=== PATIENT | male | born 1945 | race Caucasian/White ===

== ENCOUNTER 2018-02-04 23:39 | Emergency (ER) | payer MEDICARE ==
[2018-02-05] MEDS ORDERED: SODIUM CHLORIDE 0.9% 1,000 ML IV STA (00:30)
[2018-02-05] MEDS ORDERED: HYDROcodone/APAP 5-325MG 1 EACH TAB PO STA (00:30)
[2018-02-05] MEDS ORDERED: RX INFO: IV CONTRAST WAS GIVEN 1 EACH MISC MISCELLANE PRN (00:30)
--- NOTE | 2018-02-05 00:33 | ED ---
General Adult HPI - General Chief complaint: Urogenital Stated complaint: Pelvic Pain Time Seen by Provider: 02/05/18 00:26 Source: patient, RN notes reviewed Mode of arrival: ambulatory Limitations: no limitations - History of Present Illness Initial comments: 72-year-old male presents emergency Department chief complaint of left lower quadrant abdominal pain. He states has been on for last couple days worsen today. Patient denies any diarrhea, constipation, melena, hematochezia, dysuria hematuria. Patient states she's had no nausea vomiting he states the pain is worse with movement. He states he was scheduled for a colonoscopy with states that his insurance would not approve it continuously never had it. He's had no prior abdominal infections. states he does not have a current primary care physician secondary to switch of insurance. He states he's been pain medication and states he does not have a current pain meds. Patient reports no back pain no flank pain denies any fevers or chills. - Related Data Home Medications Medication Instructions Recorded Confirmed Albuterol Nebulizer(Dose Unknown) 1 applicate INHALATION DAILY 04/27/14 11/05/14 Aspirin 81 mg PO DAILY 04/27/14 11/02/14 Atenolol [Tenormin] 25 mg PO DAILY 04/27/14 11/05/14 Benazepril HCl 40 mg PO DAILY 04/27/14 11/02/14 Doxazosin [Cardura] 4 mg PO DAILY 04/27/14 11/05/14 Hydrocodone/Acetaminophen 1 each PO BID 04/27/14 11/05/14 [Hydrocodone/Acetaminophen 10-325] Simvastatin [Zocor] 80 mg PO HS 04/27/14 11/05/14 Tamsulosin [Flomax] 0.4 mg PO DAILY 04/27/14 11/02/14 amLODIPine BESYLATE [Norvasc] 10 mg PO DAILY 04/27/14 11/05/14 buPROPion XL [Wellbutrin XL] 300 mg PO DAILY 04/27/14 11/05/14 clonazePAM [KlonoPIN] 1 mg PO BID 04/27/14 11/05/14 glyBURIDE [Diabeta] 5 mg PO BID 04/27/14 11/05/14 metFORMIN HCL 1,000 mg PO BID 04/27/14 11/02/14 Previous Rx's Medication Instructions Recorded Ciprofloxacin HCl [Cipro] 500 mg PO Q12HR #20 tablet 02/05/18 Hydrocodone/Acetaminophen [[place] 1 tab PO Q6HR PRN #20 tab 02/05/18 5-325] metroNIDAZOLE [Flagyl] 500 mg PO TID #30 tab 02/05/18 Allergies Allergy/AdvReac Type Severity Reaction Status Date / Time codeine Allergy Rash/Hives Verified 02/05/18 00:08 Review of Systems ROS Statement: Those systems with pertinent positive or pertinent negative responses have been documented in the HPI. ROS Other: All systems not noted in ROS Statement are negative. Past Medical History Past Medical History: Diabetes Mellitus, Hyperlipidemia, Hypertension Additional Past Medical History / Comment(s): enlarged prostate. History of Any Multi-Drug Resistant Organisms: None Reported Past Surgical History: Back Surgery Additional Past Surgical History / Comment(s): left first and second finger amputation. Past Psychological History: Anxiety Smoking Status: Current every day smoker Past Alcohol Use History: None Reported Past Drug Use History: None Reported General Exam Limitations: no limitations General appearance: alert, in no apparent distress Head exam: Present: atraumatic, normocephalic, normal inspection Neck exam: Present: normal inspection. Absent: tenderness, meningismus, lymphadenopathy Respiratory exam: Present: normal lung sounds bilaterally. Absent: respiratory distress, wheezes, rales, rhonchi, stridor Cardiovascular Exam: Present: regular rate, normal rhythm, normal heart sounds. Absent: systolic murmur, diastolic murmur, rubs, gallop, clicks GI/Abdominal exam: Present: soft, normal bowel sounds. Absent: distended, tenderness (moderate LLQ), guarding, rebound, rigid Back exam: Absent: CVA tenderness (R), CVA tenderness (L) Neurological exam: Present: alert Skin exam: Present: warm, dry, intact, normal color. Absent: rash Course Vital Signs 02/05/18 00:01 Temperature 98.1 F Pulse Rate 76 Respiratory 16 Rate Blood Pressure 185/83 O2 Sat by Pulse 97 Oximetry Medical Decision Making - Medical Decision Making 72-year-old male presents from for abdominal discomfort. Patient has a left lower quadrant abdominal pain last couple days patient has evidence of acute diverticulitis mild on CT there is no abscess patient's labwork does not reveal leukocytosis he has no fever. Patient is stable for discharge on oral antibiotics and pain medication he'll follow up with on-call primary and surgeon return parameters were discussed - Lab Data Result diagrams: 02/05/18 01:02 02/05/18 01:02 Lab Results 02/05/18 02/05/18 02/05/18 Range/Units 01:02 01:02 01:02 WBC 9.7 (3.8-10.6) k/uL RBC 4.57 (4.30-5.90) m/uL Hgb 12.8 L (13.0-17.5) gm/dL Hct 38.9 L (39.0-53.0) % MCV 85.1 (80.0-100.0) fL MCH 28.0 (25.0-35.0) pg MCHC 32.9 (31.0-37.0) g/dL RDW 14.3 (11.5-15.5) % Plt Count 174 (150-450) k/uL Neutrophils % 72 % Lymphocytes % 19 % Monocytes % 7 % Eosinophils % 1 % Basophils % 0 % Neutrophils # 6.9 (1.3-7.7) k/uL Lymphocytes # 1.8 (1.0-4.8) k/uL Monocytes # 0.6 (0-1.0) k/uL Eosinophils # 0.1 (0-0.7) k/uL Basophils # 0.0 (0-0.2) k/uL Sodium 145 (137-145) mmol/L Potassium 3.5 (3.5-5.1) mmol/L Chloride 105 (98-107) mmol/L Carbon Dioxide 28 (22-30) mmol/L Anion Gap 12 mmol/L BUN 29 H (9-20) mg/dL Creatinine 1.30 H (0.66-1.25) mg/dL Est GFR (CKD-EPI)AfAm 63 (>60 ml/min/1.73 sqM) Est GFR (CKD-EPI)NonAf 54 (>60 ml/min/1.73 sqM) Glucose 142 H (74-99) mg/dL Plasma Lactic Acid [place] 0.9 (0.7-2.0) mmol/L Calcium 9.3 (8.4-10.2) mg/dL Total Bilirubin 0.3 (0.2-1.3) mg/dL AST 15 L (17-59) U/L ALT 23 (21-72) U/L Alkaline Phosphatase 57 (38-126) U/L Total Protein 6.1 L (6.3-8.2) g/dL Albumin 3.7 (3.5-5.0) g/dL Amylase 62 (30-110) U/L Lipase 113 (23-300) U/L Urine Color Urine Appearance (Clear) Urine pH (5.0-8.0) Ur Specific [place] (1.001-1.035) Urine Protein (Negative) Urine Glucose (UA) (Negative) Urine Ketones (Negative) Urine Blood (Negative) Urine Nitrite (Negative) Urine Bilirubin (Negative) Urine Urobilinogen (<2.0) mg/dL Ur Leukocyte Esterase (Negative) Urine RBC (0-5) /hpf Urine WBC (0-5) /hpf Urine Mucus (None) /hpf 02/05/18 Range/Units 01:07 WBC (3.8-10.6) k/uL RBC (4.30-5.90) m/uL Hgb (13.0-17.5) gm/dL Hct (39.0-53.0) % MCV (80.0-100.0) fL MCH (25.0-35.0) pg MCHC (31.0-37.0) g/dL RDW (11.5-15.5) % Plt Count (150-450) k/uL Neutrophils % % Lymphocytes % % Monocytes % % Eosinophils % % Basophils % % Neutrophils # (1.3-7.7) k/uL Lymphocytes # (1.0-4.8) k/uL Monocytes # (0-1.0) k/uL Eosinophils # (0-0.7) k/uL Basophils # (0-0.2) k/uL Sodium (137-145) mmol/L Potassium (3.5-5.1) mmol/L Chloride (98-107) mmol/L Carbon Dioxide (22-30) mmol/L Anion Gap mmol/L BUN (9-20) mg/dL Creatinine (0.66-1.25) mg/dL Est GFR (CKD-EPI)AfAm (>60 ml/min/1.73 sqM) Est GFR (CKD-EPI)NonAf (>60 ml/min/1.73 sqM) Glucose (74-99) mg/dL Plasma Lactic Acid [place] (0.7-2.0) mmol/L Calcium (8.4-10.2) mg/dL Total Bilirubin (0.2-1.3) mg/dL AST (17-59) U/L ALT (21-72) U/L Alkaline Phosphatase (38-126) U/L Total Protein (6.3-8.2) g/dL Albumin (3.5-5.0) g/dL Amylase (30-110) U/L Lipase (23-300) U/L Urine Color Light Yellow Urine Appearance Clear (Clear) Urine pH 6.0 (5.0-8.0) Ur Specific [place] 1.011 (1.001-1.035) Urine Protein 1+ H (Negative) Urine Glucose (UA) Negative (Negative) Urine Ketones Negative (Negative) Urine Blood Trace H (Negative) Urine Nitrite Negative (Negative) Urine Bilirubin Negative (Negative) Urine Urobilinogen <2.0 (<2.0) mg/dL Ur Leukocyte Esterase Negative (Negative) Urine RBC 1 (0-5) /hpf Urine WBC 1 (0-5) /hpf Urine Mucus Rare H (None) /hpf Disposition Clinical Impression: Acute diverticulitis Disposition: HOME SELF-CARE Condition: Stable Instructions: Diverticulitis (ED), Diverticulitis Diet (ED) Additional Instructions: Please return to the Emergency Department if symptoms worsen or any other concerns. Prescriptions: Ciprofloxacin HCl [Cipro] 500 mg PO Q12HR #20 tablet Hydrocodone/Acetaminophen [[place] 5-325] 1 tab PO Q6HR PRN #20 tab PRN Reason: Pain metroNIDAZOLE [Flagyl] 500 mg PO TID #30 tab Referrals: Ann Louis MD [STAFF PHYSICIAN] - 1-2 days Rosana Jolley MD [STAFF PHYSICIAN] - 1-2 days Time of Disposition: 02:43
[2018-02-05 01:16] LABS: Basophils % (A) 0 %; Eosinophils # (A) 0.1 k/uL (0-0.7); Eosinophils % (A) 1 %; HCT 38.9 % (39.0-53.0); HGB 12.8 gm/dL (13.0-17.5); Lymphocytes # (A) 1.8 k/uL (1.0-4.8); Lymphocytes % (A) 19 %; MCHC 32.9 g/dL (31.0-37.0); MCV 85.1 fL (80.0-100.0); Mean Platelet Volume 8.2; Monocytes # (A) 0.6 k/uL (0-1.0); Monocytes % (A) 7 %; Neutrophils # (A) 6.9 k/uL (1.3-7.7); Neutrophils % (A) 72 %; Platelet Count 174 k/uL (150-450); RBC 4.57 m/uL (4.30-5.90); RDW 14.3 % (11.5-15.5); WBC 9.7 k/uL (3.8-10.6)
[2018-02-05 01:28] LABS: Albumin 3.7 g/dL (3.5-5.0); Calcium 9.3 mg/dL (8.4-10.2); Potassium 3.5 mmol/L (3.5-5.1); Total Bilirubin 0.3 mg/dL (0.2-1.3); Total Protein 6.1 g/dL (6.3-8.2)
[2018-02-05 01:35] LABS: Appearance,Urine Clear (Clear); Bilirubin,Urine Negative (Negative); Blood,Urine Trace (Negative); Color,Urine Light Yellow; Glucose,Urine (UA) Negative (Negative); Ketones,Urine Negative (Negative); Leukocyte Esterase,Urine Negative (Negative); Mucus,Urine Rare /hpf; Nitrite,Urine Negative (Negative); Protein,Urine 1+ (Negative); RBC,Urine 1 /hpf (0-5); Specific Gravity,Urine 1.011 (1.001-1.035); Urobilinogen,Urine <2.0 mg/dL (<2.0); WBC,Urine 1 /hpf (0-5)
--- NOTE | 2018-02-05 02:25 | CT ---
EXAMINATION TYPE: CT abdomen pelvis w con DATE OF EXAM: 02/05/2018 COMPARISON: 04/15/2014 HISTORY: LLQ abd pain, Lower abd pain CT DLP: 722.90 mGycm Automated exposure control for dose reduction was used. TECHNIQUE: Helical acquisition of images was performed from the lung bases through the pelvis. CONTRAST: Performed without Oral Contrast and with IV Contrast, patient injected with 80 mL of Isovue 300. FINDINGS: Heart appears enlarged. Lung bases are clear. There is no pleural effusion. There is no pericardial e ffusion. Liver spleen pancreas appear normal. Bile ducts are not dilated. Gallbladder appears normal. There is mild hypertrophy of the adrenal glands. The kidneys show satisfactory contrast opacification . There is no hydronephrosis. There is a 3.5 cm cortical cyst on the posterior left kidney. There is no retroperitoneal adenopathy. Abdominal aorta is atheromatous. Bladder distends smoothly. There is m ild prostate enlargement with calcification. There is no ascites. There is no sign of free air. There is a 2 cm cortical cyst on the lateral right kidney. There is a 1.5 cm cortical cyst on the posterio r right kidney. Appendix appears normal. There are multiple diverticula in the sigmoid colon. There i s minimal fat stranding around the proximal sigmoid colon. There is multilevel posterior fusion surge ry in the lumbar spine. I see no bony destructive process. IMPRESSION: MILD INFLAMMATORY CHANGES AROUND THE PROXIMAL SIGMOID COLON CONSISTENT WITH FOCAL MILD DIVERTICULITIS THAT IS NEW COMPARED TO OLD EXAM. NO ABSCESS. NORMAL APPENDIX. SMALL RENAL CORTICAL CYSTS.
[2018-02-05] MEDS ORDERED: metroNIDAZOLE 500 MG TAB PO STA (02:41)
[2018-02-05] MEDS ORDERED: CIPROFLOXACIN HCL 500 MG TAB PO STA (02:41)
[2018-02-05 02:55] VITALS: BP 136/83; PULSE 89; RESP 18; TEMP 98.9
== END 2018-02-05 02:55 | disposition home or self-care (01) ==
LOC: EC 23:39
DX: K57.92 Diverticulitis of intestine, part unspecified, without perforation or abscess without bleeding (principal); R10.2 Pelvic and perineal pain; E11.9 Type 2 diabetes mellitus without complications; N40.0 Benign prostatic hyperplasia without lower urinary tract symptoms; E78.5 Hyperlipidemia, unspecified; I10 Essential (primary) hypertension; F17.200 Nicotine dependence, unspecified, uncomplicated; Z88.5 Allergy status to narcotic agent; Z79.82 Long term (current) use of aspirin; Z79.84 Long term (current) use of oral hypoglycemic drugs; Z79.891 Long term (current) use of opiate analgesic; Z79.899 Other long term (current) drug therapy
CPT/HCPCS: 36415; 80053; 82150; 83605; 83690; 85025; 81001; 74177; 99284; 96360; 96361; Q9967

== ENCOUNTER 2018-10-18 12:36 | Emergency (ER) | payer MEDICARE ==
[2018-10-18 12:48] VITALS: RESP 18; TEMP 97.5
[2018-10-18] MEDS ORDERED: KETOROLAC 60 MG/2 ML VIAL IM STA (13:28)
--- NOTE | 2018-10-18 13:31 | ED ---
General Adult HPI - General Chief complaint: Extremity Injury, Lower Stated complaint: rt hip, spine, and lower back pain Source: patient, RN notes reviewed Mode of arrival: wheelchair Limitations: no limitations - History of Present Illness Initial comments: Patient is a 73-year-old male with chronic back pain who presents the emergency department with complaints of right hip pain that began about 2-1/2 months ago after he slipped and fell at home. He denies hitting his head or any loss of consciousness. He reports that he typically takes [place] for his chronic back pain but that he is out. He also reports that he is out of Wellbutrin XL for depression treatment. Patient denies any recent lacerations, abrasions, bowel or bladder incontinence, saddle anesthesia, fever, chills, shortness of breath, chest pain, abdominal pain, nausea or vomiting, numbness or tingling, headaches or visual changes, or any other complaints. - Related Data Home Medications Medication Instructions Recorded Confirmed Atenolol [Tenormin] 25 mg PO DAILY 04/27/14 10/18/18 Benazepril HCl 40 mg PO DAILY 04/27/14 10/18/18 Hydrocodone/Acetaminophen 1 tab PO TID 04/27/14 10/18/18 [Hydrocodone/Acetaminophen 10-325] Tamsulosin [Flomax] 0.4 mg PO DAILY 04/27/14 10/18/18 amLODIPine BESYLATE [Norvasc] 10 mg PO DAILY 04/27/14 10/18/18 buPROPion XL [Wellbutrin XL] 300 mg PO DAILY 04/27/14 10/18/18 clonazePAM [KlonoPIN] 1 mg PO TID 04/27/14 10/18/18 metFORMIN HCL 1,000 mg PO BID 04/27/14 10/18/18 Atorvastatin [Lipitor] 40 mg PO HS 10/18/18 10/18/18 Nitroglycerin Sl Tabs [Nitrostat] 0.4 mg SUBLINGUAL Q5M PRN 10/18/18 10/18/18 Previous Rx's Medication Instructions Recorded Ibuprofen [Motrin] 600 mg PO Q6HR PRN #28 10/18/18 buPROPion XL [Wellbutrin Xl] 300 mg PO DAILY #7 tab.er.24h 10/18/18 Allergies Allergy/AdvReac Type Severity Reaction Status Date / Time codeine Allergy Rash/Hives Verified 10/18/18 13:21 Review of Systems ROS Statement: Those systems with pertinent positive or pertinent negative responses have been documented in the HPI. ROS Other: All systems not noted in ROS Statement are negative. Past Medical History Past Medical History: Diabetes Mellitus, Hyperlipidemia, Hypertension Additional Past Medical History / Comment(s): enlarged prostate. History of Any Multi-Drug Resistant Organisms: None Reported Past Surgical History: Back Surgery Additional Past Surgical History / Comment(s): left first and second finger amputation. Past Psychological History: Anxiety Smoking Status: Current every day smoker Past Alcohol Use History: None Reported Past Drug Use History: None Reported General Exam Limitations: no limitations General appearance: alert, in no apparent distress Head exam: Present: atraumatic, normocephalic Eye exam: Present: normal appearance Neck exam: Present: normal inspection, full ROM Respiratory exam: Present: normal lung sounds bilaterally Cardiovascular Exam: Present: regular rate, normal rhythm Extremities exam: Present: normal capillary refill, other (DP and PT pulses palpable and strong bilaterally.) Neurological exam: Present: alert, oriented X3 Skin exam: Present: warm, dry Course Vital Signs 10/18/18 10/18/18 10/18/18 12:46 13:26 15:17 Temperature 97.5 F L Pulse Rate 80 65 89 Respiratory 18 18 18 Rate Blood Pressure 198/91 181/84 159/71 O2 Sat by Pulse 97 98 96 Oximetry Medical Decision Making - Medical Decision Making Ordered toradol for pain. X-ray of bilateral hips and pelvis is negative. Lumbar x-ray reveals degenerative changes, but is negative for fracture or dislocation. Will prescribe Ibuprofen and a 7 day supply of Wellbutrin XL. Case discussed in detail with attending physician Dr. Moscoso. Disposition Clinical Impression: Chronic back pain Disposition: HOME SELF-CARE Condition: Good Instructions: Chronic Back Pain (ED) Additional Instructions: Follow-up with your PCP in 1 to 2 days. Return to the emergency department if your symptoms worsen or any other concerns. Prescriptions: buPROPion XL [Wellbutrin Xl] 300 mg PO DAILY #7 tab.er.24h Ibuprofen [Motrin] 600 mg PO Q6HR PRN #28 PRN Reason: Pain Is patient prescribed a controlled substance at d/c from ED?: No Referrals: None,Stated [Primary Care Provider] - 1-2 days Evan Avendano MD [STAFF PHYSICIAN] - 1-2 days Time of Disposition: 15:21
--- NOTE | 2018-10-18 14:00 | XR ---
EXAMINATION TYPE: XR lumbar spine 2 or 3V DATE OF EXAM: 10/18/2018 CLINICAL HISTORY: pain TECHNIQUE: Three views of the lumbar spine are submitted. COMPARISON: None. FINDINGS: Postoperative changes of lumbar laminectomy and fusion at L4-5 and L5-S1. Intervertebral body spacer at L4-5. There is severe degenerative disc space narrowing and spondylosis identified at the remainin g. Endplate sclerosis is identified. There is evidence of facet joint arthropathy. No evidence for co mpression fracture or malalignment. IMPRESSION: Postoperative and degenerative change as discussed. ICD 10 NO FRACTURE, INITIAL EVALUATION
--- NOTE | 2018-10-18 14:05 | XR ---
EXAMINATION TYPE: XR Hip Bilateral and AP pelvis DATE OF EXAM: 10/18/2018 CLINICAL HISTORY: pain TECHNIQUE: Single view the pelvis is submitted. 2 views of the bilateral hips are also submitted. FINDINGS: No evidence for fracture, dislocation or bony lesion. Joint spaces are mildly narrowed. SI joints appear symmetric. IMPRESSION: 1. No acute fracture or dislocation seen. ICD 10 NO FRACTURE, INITIAL EVALUATION
[2018-10-18 15:18] VITALS: BP 159/71; PULSE 89
== END 2018-10-18 15:25 | disposition home or self-care (01) ==
LOC: EC 12:36
DX: M54.5 Low back pain (principal); G89.29 Other chronic pain; E11.9 Type 2 diabetes mellitus without complications; E78.5 Hyperlipidemia, unspecified; I10 Essential (primary) hypertension; F41.9 Anxiety disorder, unspecified; N40.0 Benign prostatic hyperplasia without lower urinary tract symptoms; F17.200 Nicotine dependence, unspecified, uncomplicated; Z79.84 Long term (current) use of oral hypoglycemic drugs; Z79.899 Other long term (current) drug therapy; Z88.5 Allergy status to narcotic agent
CPT/HCPCS: 72100; 73521; 99283; 96372; J1885

== ENCOUNTER 2018-10-23 03:37 | Emergency (ER) | payer MEDICARE ==
[2018-10-23 03:45] VITALS: TEMP 99.3
[2018-10-23] MEDS ORDERED: MORPHINE SULFATE 4 MG/ML SYRINGE IVP STA (03:50)
[2018-10-23] MEDS ORDERED: ONDANSETRON 4 MG/2 ML VIAL IVP STA (03:50)
[2018-10-23] MEDS: SODIUM CHLORIDE 0.9% 500 ML 500 ML IV SCH ×3 (04:10→05:22)
[2018-10-23 04:32] LABS: Albumin 3.8 g/dL (3.5-5.0); Calcium 8.7 mg/dL (8.4-10.2); Potassium 3.3 mmol/L (3.5-5.1); Total Bilirubin 0.5 mg/dL (0.2-1.3); Total Protein 6.5 g/dL (6.3-8.2)
[2018-10-23] MEDS ORDERED: Potassium Replacement Protocol 1 EACH MISC MISCELLANE PRN (04:33)
[2018-10-23 04:34] LABS: Basophils # (A) 0.1 k/uL (0-0.2); Basophils % (A) 1 %; Eosinophils # (A) 0.1 k/uL (0-0.7); Eosinophils % (A) 1 %; HCT 40.6 % (39.0-53.0); Lymphocytes # (A) 0.6 k/uL (1.0-4.8); Lymphocytes % (A) 7 %; MCH 27.8 pg (25.0-35.0); MCV 86.8 fL (80.0-100.0); Mean Platelet Volume 7.4; Monocytes # (A) 0.3 k/uL (0-1.0); Monocytes % (A) 4 %; Neutrophils % (A) 86 %; Platelet Count 148 k/uL (150-450); RBC 4.68 m/uL (4.30-5.90); RDW 14.2 % (11.5-15.5); WBC 8.2 k/uL (3.8-10.6)
--- NOTE | 2018-10-23 04:34 | ED ---
General Adult HPI - General Chief complaint: Abdominal Pain Stated complaint: side pain Time Seen by Provider: 10/23/18 03:39 Source: patient, EMS Mode of arrival: EMS Limitations: physical limitation - History of Present Illness Initial comments: Patient is a 73-year-old male who presents the emergency department via EMS for evaluation of right-sided flank pain. Patient reports that he was seen and evaluated for a similar complaint for 5 days ago, treated with medications, was told his x-rays were unremarkable and he was discharged home. Patient reports he was doing well after discharge however throughout the had persistent pain in his right flank. Patient denies any hematuria or urinary frequency or hesitancy. He denies any fevers, chills, nausea, vomiting or change in bowel or bladder habits. He reports chronic shortness of breath which is unchanged recently. He denies any chest pain or palpitations. - Related Data Home Medications Medication Instructions Recorded Confirmed Atenolol [Tenormin] 25 mg PO DAILY 04/27/14 10/23/18 Benazepril HCl 40 mg PO DAILY 04/27/14 10/23/18 Hydrocodone/Acetaminophen 1 tab PO TID 04/27/14 10/23/18 [Hydrocodone/Acetaminophen 10-325] Tamsulosin [Flomax] 0.8 mg PO DAILY 04/27/14 10/23/18 amLODIPine BESYLATE [Norvasc] 10 mg PO DAILY 04/27/14 10/23/18 clonazePAM [KlonoPIN] 1 mg PO TID 04/27/14 10/23/18 metFORMIN HCL 1,000 mg PO BID 04/27/14 10/23/18 Atorvastatin [Lipitor] 40 mg PO HS 10/18/18 10/23/18 Nitroglycerin Sl Tabs [Nitrostat] 0.4 mg SUBLINGUAL Q5M PRN 10/18/18 10/23/18 Glimepiride [Amaryl] 2 mg PO AC-[id number] PRN 10/23/18 10/23/18 Previous Rx's Medication Instructions Recorded buPROPion XL [Wellbutrin Xl] 300 mg PO DAILY #7 tab.er.24h 10/18/18 Allergies Allergy/AdvReac Type Severity Reaction Status Date / Time codeine Allergy Rash/Hives Verified 10/23/18 07:21 Review of Systems ROS Statement: Those systems with pertinent positive or pertinent negative responses have been documented in the HPI. ROS Other: All systems not noted in ROS Statement are negative. Past Medical History Past Medical History: Diabetes Mellitus, Hyperlipidemia, Hypertension Additional Past Medical History / Comment(s): enlarged prostate. History of Any Multi-Drug Resistant Organisms: None Reported Past Surgical History: Back Surgery Additional Past Surgical History / Comment(s): left first and second finger amputation. Past Psychological History: Anxiety Smoking Status: Current every day smoker Past Alcohol Use History: None Reported Past Drug Use History: None Reported General Exam - General Exam Comments Initial Comments: Physical Exam GENERAL: Patient is well-developed and well-nourished. Patient is nontoxic and well- hydrated and is in no distress. HENT: Normocephalic, Atraumatic. EYES: PERRL, EOMI PULMONARY: Mild expiratory wheezing CARDIOVASCULAR: After cardiac, regular extremities are warm and well perfused ABDOMEN: Soft, mild tenderness to palpation on the right SKIN: Skin is clear with no lesions or rashes and otherwise unremarkable. : Deferred NEUROLOGIC: Patient is alert and oriented x3. Moving all extremities spontaneously MUSCULOSKELETAL: Normal extremities with adequate strength and full range of motion. No lower extremity swelling or edema. No calf tenderness. 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 Limitations: no limitations Limitations: physical limitation Course Vital Signs 10/23/18 10/23/18 10/23/18 03:38 04:00 04:30 Temperature 99.3 F Pulse Rate 108 H 106 H 102 H Respiratory 20 21 22 Rate Blood Pressure 192/101 192/101 182/100 O2 Sat by Pulse 94 L 98 97 Oximetry EKG Findings - EKG Comments: EKG Findings:: EKG obtained at 3:44 AM, rate is 110, rhythm is sinus tachycardia with frequent PVCs. There is normal axis, normal intervals, VT 156 , QRS 98, QTC is 454 there is no acute ST elevations or depressions no evidence of acute ischemia or infarction. The EKG obtained at 6:13 AM, rate is 124 rhythm is sinus tachycardia with PACs, there is normal axis, normal intervals, VT 146, QRS 88, QTC 476. No acute ST elevations or depressions. Medical Decision Making - Medical Decision Making Patient was seen and evaluated, history was obtained from the patient and review of medical record Patient presenting with right-sided flank pain, had negative x-rays a few days ago today I will obtain a CT as the patient does have a history of colitis with similar symptoms Labs reveal mild hypokalemia, IV replacement of potassium was ordered Patient suddenly yelling out that he is having chest pain and unable to breathe , noted to be tachycardic with heart rate in the 140s, tachypnea, oxygen saturation is noted to be 96% however the patient is diaphoretic The patient does wear a CPAP at home, we will place the patient on BiPAP for support The EKG was reviewed, sinus tachycardia was placed on BiPAP and respiratory distress improved, diaphoresis improved, oxygenation remained greater than 96% Entering patient's persistent tachycardia and chest pain I will obtain a scan to evaluate for possible PE however patient did receive IV contrast within the past 2 hours if her V/Q scan is recommended. Single dose of weight-based Lovenox was given pending VQ scan. Patient care was discussed with Dr. Acevedo who accepts the admission with a consult to cardiology. - Lab Data Result diagrams: 10/23/18 04:05 10/23/18 04:05 Lab Results 10/23/18 10/23/18 10/23/18 Range/Units 04:05 04:05 04:05 WBC 8.2 (3.8-10.6) k/uL RBC 4.68 (4.30-5.90) m/uL Hgb 13.0 (13.0-17.5) gm/dL Hct 40.6 (39.0-53.0) % MCV 86.8 (80.0-100.0) fL MCH 27.8 (25.0-35.0) pg MCHC 32.0 (31.0-37.0) g/dL RDW 14.2 (11.5-15.5) % Plt Count 148 L (150-450) k/uL Neutrophils % 86 % Lymphocytes % 7 % Monocytes % 4 % Eosinophils % 1 % Basophils % 1 % Neutrophils # 7.0 (1.3-7.7) k/uL Lymphocytes # 0.6 L (1.0-4.8) k/uL Monocytes # 0.3 (0-1.0) k/uL Eosinophils # 0.1 (0-0.7) k/uL Basophils # 0.1 (0-0.2) k/uL PT (9.0-12.0) sec INR (<1.2) APTT (22.0-30.0) sec Sodium 139 (137-145) mmol/L Potassium 3.3 L (3.5-5.1) mmol/L Chloride 103 (98-107) mmol/L Carbon Dioxide 27 (22-30) mmol/L Anion Gap 9 mmol/L BUN 22 H (9-20) mg/dL Creatinine 1.17 (0.66-1.25) mg/dL Est GFR (CKD-EPI)AfAm 71 (>60 ml/min/1.73 sqM) Est GFR (CKD-EPI)NonAf 61 (>60 ml/min/1.73 sqM) Glucose 104 H (74-99) mg/dL Plasma Lactic Acid [place] (0.7-2.0) mmol/L Calcium 8.7 (8.4-10.2) mg/dL Total Bilirubin 0.5 (0.2-1.3) mg/dL AST 23 (17-59) U/L ALT 23 (21-72) U/L Alkaline Phosphatase 69 (38-126) U/L Total Creatine Kinase 180 H (55-170) U/L CK-MB (CK-2) 2.1 (0.0-2.4) ng/mL CK-MB (CK-2) Rel Index 1.2 Troponin I 0.028 (0.000-0.034) ng/mL Total Protein 6.5 (6.3-8.2) g/dL Albumin 3.8 (3.5-5.0) g/dL Urine Color Urine Appearance (Clear) Urine pH (5.0-8.0) Ur Specific [place] (1.001-1.035) Urine Protein (Negative) Urine Glucose (UA) (Negative) Urine Ketones (Negative) Urine Blood (Negative) Urine Nitrite (Negative) Urine Bilirubin (Negative) Urine Urobilinogen (<2.0) mg/dL Ur Leukocyte Esterase (Negative) Urine RBC (0-5) /hpf Urine WBC (0-5) /hpf Ur Squamous Epith Cells (0-4) /hpf Urine Mucus (None) /hpf Urine Sperm (None) /hpf 10/23/18 10/23/18 10/23/18 Range/Units 04:05 04:05 04:05 WBC (3.8-10.6) k/uL RBC (4.30-5.90) m/uL Hgb (13.0-17.5) gm/dL Hct (39.0-53.0) % MCV (80.0-100.0) fL MCH (25.0-35.0) pg MCHC (31.0-37.0) g/dL RDW (11.5-15.5) % Plt Count (150-450) k/uL Neutrophils % % Lymphocytes % % Monocytes % % Eosinophils % % Basophils % % Neutrophils # (1.3-7.7) k/uL Lymphocytes # (1.0-4.8) k/uL Monocytes # (0-1.0) k/uL Eosinophils # (0-0.7) k/uL Basophils # (0-0.2) k/uL PT 9.9 (9.0-12.0) sec INR 0.9 (<1.2) APTT 24.2 (22.0-30.0) sec Sodium (137-145) mmol/L Potassium (3.5-5.1) mmol/L Chloride (98-107) mmol/L Carbon Dioxide (22-30) mmol/L Anion Gap mmol/L BUN (9-20) mg/dL Creatinine (0.66-1.25) mg/dL Est GFR (CKD-EPI)AfAm (>60 ml/min/1.73 sqM) Est GFR (CKD-EPI)NonAf (>60 ml/min/1.73 sqM) Glucose (74-99) mg/dL Plasma Lactic Acid [place] 1.0 (0.7-2.0) mmol/L Calcium (8.4-10.2) mg/dL Total Bilirubin (0.2-1.3) mg/dL AST (17-59) U/L ALT (21-72) U/L Alkaline Phosphatase (38-126) U/L Total Creatine Kinase (55-170) U/L CK-MB (CK-2) (0.0-2.4) ng/mL CK-MB (CK-2) Rel Index Troponin I (0.000-0.034) ng/mL Total Protein (6.3-8.2) g/dL Albumin (3.5-5.0) g/dL Urine Color Light Yellow Urine Appearance Clear (Clear) Urine pH 6.5 (5.0-8.0) Ur Specific [place] 1.007 (1.001-1.035) Urine Protein 2+ H (Negative) Urine Glucose (UA) Negative (Negative) Urine Ketones Negative (Negative) Urine Blood Moderate H (Negative) Urine Nitrite Negative (Negative) Urine Bilirubin Negative (Negative) Urine Urobilinogen <2.0 (<2.0) mg/dL Ur Leukocyte Esterase Negative (Negative) Urine RBC 14 H (0-5) /hpf Urine WBC 1 (0-5) /hpf Ur Squamous Epith Cells 1 (0-4) /hpf Urine Mucus Rare H (None) /hpf Urine Sperm Rare (None) /hpf Disposition Clinical Impression: Tachycardia, Chest pain, Respiratory distress, Flank pain Disposition: ADMITTED IP TO THIS HOSP Referrals: None,Stated [Primary Care Provider] - 1-2 days
[2018-10-23 04:38] LABS: INR 0.9 (<1.2); Partial Thromboplastin Time 24.2 sec (22.0-30.0); Prothrombin Time 9.9 sec (9.0-12.0)
[2018-10-23] MEDS: POTASSIUM CHLORIDE ER 20 MEQ TAB.ER PO SCH ×2 (04:48→09:08)
[2018-10-23 04:52] LABS: Creatine Kinase MB 2.1 ng/mL (0.0-2.4); Troponin I 0.028 ng/mL (0.000-0.034)
[2018-10-23 05:00] LABS: Appearance,Urine Clear (Clear); Bilirubin,Urine Negative (Negative); Blood,Urine Moderate (Negative); Color,Urine Light Yellow; Glucose,Urine (UA) Negative (Negative); Ketones,Urine Negative (Negative); Leukocyte Esterase,Urine Negative (Negative); Mucus,Urine Rare /hpf; Nitrite,Urine Negative (Negative); PH, Urine 6.5 (5.0-8.0); Protein,Urine 2+ (Negative); RBC,Urine 14 /hpf (0-5); Specific Gravity,Urine 1.007 (1.001-1.035); Sperm,Urine Rare /hpf; Squamous Epithelial Cell,Urine 1 /hpf (0-4); Urobilinogen,Urine <2.0 mg/dL (<2.0); WBC,Urine 1 /hpf (0-5)
[2018-10-23] MEDS: POTASSIUM CHLORIDE 10 MEQ in WATER FOR INJECTION 1 100ML.BAG IVPB SCH ×3 (05:33→08:43)
--- NOTE | 2018-10-23 05:38 | CT ---
EXAMINATION TYPE: CT abdomen pelvis w con DATE OF EXAM: 10/23/2018 COMPARISON: 02/05/2018 HISTORY: Right abd/flank pain, hx of colitis CT DLP: 1081.1 mGycm Automated exposure control for dose reduction was used. TECHNIQUE: Helical acquisition of images was performed from the lung bases through the pelvis. CONTRAST: Performed without Oral Contrast and with IV Contrast, patient injected with 100 mL of Isovue 300. FINDINGS: Lung bases are clear. There is no pleural effusion. Heart size is top normal. There is very small per icardial effusion. There is 1 cm cyst in the right lobe of the liver. Bile ducts are not dilated. Gallbladder slightly c ontracted. Spleen appears normal. There is no pancreatic mass. There is no adrenal mass. There is some nodularity in both adrenal glands. There is 2.5 cm cyst poste rior left kidney. There are other smaller renal cortical cysts. There is 4 mm calculus posterior righ t kidney. There is no hydronephrosis. Ureters are not dilated. Abdominal aorta is atheromatous. There is no retroperitoneal adenopathy. There is lower lumbar spine fusion surgery at L4 and L5 and S1. Pr ostate is slightly enlarged. Prostate measures 5 cm. There is no inguinal hernia. There are multiple sigmoid diverticula. There is no sign of diverticulitis. Appendix appears normal. There are some dist ended gas and fluid-filled loops of small bowel in the left upper quadrant. There is no sign of free air. There is no ascites. IMPRESSION: SIGMOID DIVERTICULOSIS WITHOUT DIVERTICULITIS. THERE ARE A FEW DISTENDED SMALL BOWEL LOOPS IN THE UPP ER ABDOMEN THAT MEASURE UP TO 2.9 CM. THIS COULD RELATE TO GASTROENTERITIS. NORMAL APPENDIX. SMALL GUILLERMO WEL DISTENTION IS NEW COMPARED TO OLD EXAM.
--- NOTE | 2018-10-23 06:17 | XR ---
EXAMINATION TYPE: XR chest 1V DATE OF EXAM: 10/23/2018 COMPARISON: NONE HISTORY: Respiratory distress TECHNIQUE: Single frontal view of the chest is obtained. FINDINGS: There is coarsening of the lung markings. There are calcified small granulomata scattered in the lungs. There are chest leads. Costophrenic angles are clear. The thoracic aorta is atheromatou s. IMPRESSION: Mild pulmonary fibrosis. Old granulomatous disease. Normal heart.
[2018-10-23] MEDS ORDERED: ENOXAPARIN 80 MG/0.8 ML SYRINGE SQ STA (07:07)
[2018-10-23] MEDS ORDERED: NALOXONE 0.4 MG/ML 1 ML VIAL IV PRN (07:08)
--- NOTE | 2018-10-23 08:52 | NM ---
EXAMINATION TYPE: NM pul vent and perfuse DATE OF EXAM: 10/23/2018 COMPARISON: NONE HISTORY: Shortness of breath TECHNIQUE: Utilizing inhalation of 33.5 mCi Tc 99m DTPA aerosol and intravenous injection of 5.45 mC i of Tc 99m MAA, ventilation and perfusion images are acquired post injection in multiple projections . FINDINGS: There is moderate central accumulation of radiotracer compatible with COPD. There is no evidence for perfusion ventilation mismatch IMPRESSION: Low probability for pulmonary embolism.
[2018-10-23 10:14] VITALS: BP 141/109
[2018-10-23 11:34] VITALS: PULSE 106; RESP 18
== END 2018-10-23 11:43 | disposition left against medical advice (07) ==
LOC: EC 03:37 → UNDOADMIN 07:08 → 3SCARD 07:08 → EC 11:43 → UNDODISIN 11:43
DX: R10.9 Unspecified abdominal pain (principal); R06.03 Acute respiratory distress; R00.0 Tachycardia, unspecified; E87.6 Hypokalemia; E11.9 Type 2 diabetes mellitus without complications; E78.5 Hyperlipidemia, unspecified; I10 Essential (primary) hypertension; F41.9 Anxiety disorder, unspecified; F17.200 Nicotine dependence, unspecified, uncomplicated; Z79.899 Other long term (current) drug therapy; Z79.84 Long term (current) use of oral hypoglycemic drugs; Z88.5 Allergy status to narcotic agent; Z87.19 Personal history of other diseases of the digestive system
CPT/HCPCS: 96365; 96372; 96375; 99285; 36415; 94660; 93005; 80053; 82550; 82553; 83605; 84484; 85025; 85610; 85730; 81001; 87040; 71045; 74177; 78582; A9540; A9567; J2270; J2405; J1650; J3480; Q9967

== ENCOUNTER → 2019-04-14 | Outpatient (CLI) | payer MEDICARE ==
--- NOTE | 2019-04-14 22:27 | US ---
EXAMINATION TYPE: US venous doppler duplex LE RT DATE OF EXAM: 04/14/2019 4:54 PM COMPARISON: NONE CLINICAL HISTORY: M79.661 Pain in Right Lower Limb. SIDE PERFORMED: Right TECHNIQUE: The lower extremity deep venous system is examined utilizing real time linear array sonog matt with graded compression, doppler sonography and color-flow sonography. VESSELS IMAGED: External Iliac Vein (EIV) Common Femoral Vein Deep Femoral Vein Greater Saphenous Vein * Femoral Vein Popliteal Vein Small Saphenous Vein * Proximal Calf Veins (* superficial vessels) Right Leg: Negative for DVT Grayscale, color doppler, spectral doppler imaging performed of the deep veins of the right lower ext remity. There is normal flow, compressibility, vascular waveforms. IMPRESSION: No ultrasound evidence for acute DVT in the right lower extremity.
== END | disposition home or self-care (01) ==
LOC: RADUSWWP 16:33
PROVIDERS: ATTEND Family Medicine
DX: M79.661 Pain in right lower leg (principal)

== ENCOUNTER 2019-06-03 22:41 | Emergency (ER) | payer MEDICARE ==
--- NOTE | 2019-06-03 23:20 | ED ---
General Adult HPI - General Chief complaint: Extremity Problem,Nontraumatic Stated complaint: Bilateral Leg Swelling Time Seen by Provider: 06/03/19 22:57 Source: patient, RN notes reviewed Mode of arrival: ambulatory Limitations: no limitations - History of Present Illness Initial comments: 73-year-old male presents to the emergency department for a chief complaint of bilateral lower extremity pain and swelling for 5 weeks. Patient states that he also has some redness to his bilateral lower legs. States that he has been seen by his primary care provider for this twice and has been given steroids as well as 6 due to concern for heart failure. States he has had an ultrasound of the right leg which was negative for DVT. She does admit to shortness of breath but states he is always short of breath. States his shortness of breath has not worsened for the past year. Denies any chest pain whatsoever. Patient has no other complaints at this time including chest pain, abdominal pain, nausea or vomiting, headache, or visual changes. - Related Data Home Medications Medication Instructions Recorded Confirmed Atenolol [Tenormin] 25 mg PO DAILY 04/27/14 06/03/19 Benazepril HCl 40 mg PO DAILY 04/27/14 06/03/19 Tamsulosin [Flomax] 0.8 mg PO DAILY 04/27/14 06/03/19 amLODIPine BESYLATE [Norvasc] 10 mg PO DAILY 04/27/14 06/03/19 clonazePAM [KlonoPIN] 1 mg PO TID 04/27/14 06/03/19 metFORMIN HCL 1,000 mg PO BID 04/27/14 06/03/19 Atorvastatin [Lipitor] 40 mg PO HS 10/18/18 06/03/19 Glimepiride [Amaryl] 2 mg PO BID 10/23/18 06/03/19 Albuterol Nebulized [Ventolin 2.5 mg INHALATION RT-QID 06/03/19 06/03/19 Nebulized] Albuterol Sulfate [Proair Hfa] 1 - 2 puff INHALATION Q6HR PRN 06/03/19 06/03/19 Aspirin EC [Ecotrin Low Dose] 81 mg PO DAILY 06/03/19 06/03/19 Cyclobenzaprine [Flexeril] 10 mg PO DAILY 06/03/19 06/03/19 Escitalopram Oxalate [Lexapro] 10 mg PO DAILY 06/03/19 06/03/19 Furosemide [Lasix] 40 mg PO HS 06/03/19 06/03/19 Previous Rx's Medication Instructions Recorded buPROPion XL [Wellbutrin Xl] 300 mg PO DAILY #7 tab.er.24h 10/18/18 Cephalexin [Keflex] 500 mg PO Q6HR 10 Days cap 06/04/19 Potassium Chloride [K-Tab ER] 40 meq PO DAILY 2 Days tablet.er 06/04/19 Allergies Allergy/AdvReac Type Severity Reaction Status Date / Time codeine Allergy Rash/Hives Verified 06/03/19 23:24 Review of Systems ROS Statement: Those systems with pertinent positive or pertinent negative responses have been documented in the HPI. ROS Other: All systems not noted in ROS Statement are negative. Past Medical History Past Medical History: Diabetes Mellitus, Hyperlipidemia, Hypertension Additional Past Medical History / Comment(s): enlarged prostate. History of Any Multi-Drug Resistant Organisms: None Reported Past Surgical History: Back Surgery Additional Past Surgical History / Comment(s): left first and second finger amputation. Past Psychological History: Anxiety Smoking Status: Current every day smoker Past Alcohol Use History: None Reported Past Drug Use History: None Reported General Exam Limitations: no limitations General appearance: alert, in no apparent distress Head exam: Present: atraumatic, normocephalic, normal inspection Eye exam: Present: normal appearance, PERRL, EOMI. Absent: scleral icterus, conjunctival injection, periorbital swelling ENT exam: Present: normal exam, mucous membranes moist Neck exam: Present: normal inspection, full ROM. Absent: tenderness, meningismus, lymphadenopathy Respiratory exam: Present: normal lung sounds bilaterally. Absent: respiratory distress, wheezes, rales, rhonchi, stridor Cardiovascular Exam: Present: regular rate, normal rhythm, normal heart sounds. Absent: systolic murmur, diastolic murmur, rubs, gallop, clicks Extremities exam: Present: other (Patient has 2+ pitting edema noted in the bilateral lower extremities. DP pulses are 2+ and equal bilaterally. plaque- like erythema present on the left and right lower legs. This does have increased warmth palpated as well as some tenderness generally over the feet and distal lower extremities. Negative Homans sign.) Course Vital Signs 06/03/19 06/04/19 06/04/19 22:44 00:00 00:30 Temperature 98.2 F Pulse Rate 87 72 75 Respiratory 18 19 19 Rate Blood Pressure 166/82 182/89 167/87 O2 Sat by Pulse 96 95 96 Oximetry 06/04/19 06/04/19 06/04/19 00:37 00:50 01:19 Temperature Pulse Rate 73 79 77 Respiratory 20 18 18 Rate Blood Pressure 179/87 179/87 190/96 O2 Sat by Pulse 94 L 96 94 L Oximetry 06/04/19 06/04/19 01:54 02:54 Temperature 98.2 F 98.3 F Pulse Rate 75 86 Respiratory 19 18 Rate Blood Pressure 170/82 176/80 O2 Sat by Pulse 95 95 Oximetry EKG Findings - EKG Comments: EKG Findings:: Normal sinus rhythm, ventricular rate 79, OK interval 156, QTc 470 Medical Decision Making - Medical Decision Making 73-year-old male with a past medical history of diabetes mellitus, hyperlipidemia, hypertension presents to the emergency department for a chief: Bilateral lower extremity edema. States this has been ongoing for 5 weeks. States that it is has been read as well. Patient states he was put on Lasix and steroids but it did not improve. Patient also had a negative ultrasound of the right lower extremity. Patient is concerned he could have an infection. On e xam patient does have 2+ pitting edema of the bilateral lower extremities. Neurovascular status intact. There is erythema and increased warmth noted of the lower extremities well. CBC is unremarkable. CMP shows a potassium of 2.8. This could be secondary to the Lasix. Patient was given 20 mEq here in the emergency department IV as well as 40 orally. He will be put on 2 days of oral potassium as well. Creatinine mildly elevated at 1.50, patient is orally rehydrating. BNP noted to be 1660. Patient is denying any new shortness of breath or chest pain. States the shortness of breath is chronic and has not changed within the past year. Chest x-ray shows no evidence of acute cardiopulm onary disease. At this time patient will be put on antibiotics for possible cellulitic infection. He will also continue to take his Lasix for possible component of heart failure but will be given potassium supplementation for this. Discussed importance of following up with primary care in the next day or 2 for repeat potassium as well as a reevaluation of lower extremity edema. Patient does agree. He also agrees to return if he has any worsening symptoms. - Lab Data Result diagrams: 06/03/19 23:30 06/03/19 23:30 Lab Results 06/03/19 06/03/19 06/03/19 Range/Units 23:30 23:30 23:30 WBC 8.5 (3.8-10.6) k/uL RBC 4.37 (4.30-5.90) m/uL Hgb 12.8 L (13.0-17.5) gm/dL Hct 38.1 L (39.0-53.0) % MCV 87.1 (80.0-100.0) fL MCH 29.4 (25.0-35.0) pg MCHC 33.7 (31.0-37.0) g/dL RDW 15.6 H (11.5-15.5) % Plt Count 196 (150-450) k/uL Neutrophils % 65 % Lymphocytes % 22 % Monocytes % 8 % Eosinophils % 2 % Basophils % 0 % Neutrophils # 5.5 (1.3-7.7) k/uL Lymphocytes # 1.9 (1.0-4.8) k/uL Monocytes # 0.6 (0-1.0) k/uL Eosinophils # 0.2 (0-0.7) k/uL Basophils # 0.0 (0-0.2) k/uL Sodium 140 (137-145) mmol/L Potassium 2.8 L (3.5-5.1) mmol/L Chloride 100 (98-107) mmol/L Carbon Dioxide 29 (22-30) mmol/L Anion Gap 11 mmol/L BUN 26 H (9-20) mg/dL Creatinine 1.50 H (0.66-1.25) mg/dL Est GFR (CKD-EPI)AfAm 53 (>60 ml/min/1.73 sqM) Est GFR (CKD-EPI)NonAf 45 (>60 ml/min/1.73 sqM) Glucose 156 H (74-99) mg/dL Calcium 9.2 (8.4-10.2) mg/dL Total Bilirubin 0.3 (0.2-1.3) mg/dL AST 28 (17-59) U/L ALT 29 (21-72) U/L Alkaline Phosphatase 60 (38-126) U/L NT-Pro-B Natriuret Pep 1660 pg/mL Total Protein 6.3 (6.3-8.2) g/dL Albumin 3.7 (3.5-5.0) g/dL Urine Color Urine Appearance (Clear) Urine pH (5.0-8.0) Ur Specific [place] (1.001-1.035) Urine Protein (Negative) Urine Glucose (UA) (Negative) Urine Ketones (Negative) Urine Blood (Negative) Urine Nitrite (Negative) Urine Bilirubin (Negative) Urine Urobilinogen (<2.0) mg/dL Ur Leukocyte Esterase (Negative) Urine RBC (0-5) /hpf Urine WBC (0-5) /hpf 06/04/19 Range/Units 00:33 WBC (3.8-10.6) k/uL RBC (4.30-5.90) m/uL Hgb (13.0-17.5) gm/dL Hct (39.0-53.0) % MCV (80.0-100.0) fL MCH (25.0-35.0) pg MCHC (31.0-37.0) g/dL RDW (11.5-15.5) % Plt Count (150-450) k/uL Neutrophils % % Lymphocytes % % Monocytes % % Eosinophils % % Basophils % % Neutrophils # (1.3-7.7) k/uL Lymphocytes # (1.0-4.8) k/uL Monocytes # (0-1.0) k/uL Eosinophils # (0-0.7) k/uL Basophils # (0-0.2) k/uL Sodium (137-145) mmol/L Potassium (3.5-5.1) mmol/L Chloride (98-107) mmol/L Carbon Dioxide (22-30) mmol/L Anion Gap mmol/L BUN (9-20) mg/dL Creatinine (0.66-1.25) mg/dL Est GFR (CKD-EPI)AfAm (>60 ml/min/1.73 sqM) Est GFR (CKD-EPI)NonAf (>60 ml/min/1.73 sqM) Glucose (74-99) mg/dL Calcium (8.4-10.2) mg/dL Total Bilirubin (0.2-1.3) mg/dL AST (17-59) U/L ALT (21-72) U/L Alkaline Phosphatase (38-126) U/L NT-Pro-B Natriuret Pep pg/mL Total Protein (6.3-8.2) g/dL Albumin (3.5-5.0) g/dL Urine Color Light Yellow Urine Appearance Clear (Clear) Urine pH 6.5 (5.0-8.0) Ur Specific [place] 1.008 (1.001-1.035) Urine Protein 2+ H (Negative) Urine Glucose (UA) Negative (Negative) Urine Ketones Negative (Negative) Urine Blood Small H (Negative) Urine Nitrite Negative (Negative) Urine Bilirubin Negative (Negative) Urine Urobilinogen <2.0 (<2.0) mg/dL Ur Leukocyte Esterase Negative (Negative) Urine RBC 7 H (0-5) /hpf Urine WBC <1 (0-5) /hpf Disposition Clinical Impression: Bilateral lower extremity edema, Cellulitis Disposition: HOME SELF-CARE Condition: Good Instructions (If sedation given, give patient instructions): Leg Edema (ED) Additional Instructions: Please take potassium as directed. Take Keflex as directed as well. Follow up with primary care in the next 1-2 days to have a repeat potassium level checked as well as for reevaluation of lower extremity swelling. Return to the emergency department if you have any worsening symptoms. Prescriptions: Potassium Chloride [K-Tab ER] 40 meq PO DAILY 2 Days tablet.er Cephalexin [Keflex] 500 mg PO Q6HR 10 Days cap Is patient prescribed a controlled substance at d/c from ED?: No Referrals: Eden Cisneros DO [Primary Care Provider] - 1-2 days Time of Disposition: 02:01
[2019-06-03 23:45] LABS: Basophils % (A) 0 %; Eosinophils # (A) 0.2 k/uL (0-0.7); Eosinophils % (A) 2 %; HCT 38.1 % (39.0-53.0); HGB 12.8 gm/dL (13.0-17.5); Lymphocytes # (A) 1.9 k/uL (1.0-4.8); Lymphocytes % (A) 22 %; MCH 29.4 pg (25.0-35.0); MCHC 33.7 g/dL (31.0-37.0); MCV 87.1 fL (80.0-100.0); Mean Platelet Volume 7.9; Monocytes # (A) 0.6 k/uL (0-1.0); Monocytes % (A) 8 %; Neutrophils # (A) 5.5 k/uL (1.3-7.7); Neutrophils % (A) 65 %; Platelet Count 196 k/uL (150-450); RBC 4.37 m/uL (4.30-5.90); RDW 15.6 % (11.5-15.5); WBC 8.5 k/uL (3.8-10.6)
[2019-06-03 23:55] LABS: Albumin 3.7 g/dL (3.5-5.0); Calcium 9.2 mg/dL (8.4-10.2); Potassium 2.8 mmol/L (3.5-5.1); Total Bilirubin 0.3 mg/dL (0.2-1.3); Total Protein 6.3 g/dL (6.3-8.2)
[2019-06-04] MEDS ORDERED: POTASSIUM CHLORIDE ER 20 MEQ TAB.ER PO STA
--- NOTE | 2019-06-04 00:36 | XR ---
EXAM: XR Chest, 2 Views CLINICAL HISTORY: ITS.REASON XR Reason: Pain TECHNIQUE: Frontal and lateral views of the chest. COMPARISON: Prior from 10/23/18 FINDINGS: Lungs: Stable increased interstitial markings in the lower lungs/fibrotic changes. No focal infiltrate. Stable mild prominence of the pulmonary vasculature. No overt pulmonary edema. Pleural space: Unremarkable. No pneumothorax. Heart: Stable cardiomediastinal silhouette. Normal heart size. Mediastinum: See above. Bones/joints: Degenerative changes of the thoracic spine. Vasculature: Aortic calcifications. IMPRESSION: 1. No evidence of acute cardiopulmonary disease. 2. Stable increased interstitial markings in the lower lungs/fibrotic changes.
[2019-06-04 00:48] LABS: Appearance,Urine Clear (Clear); Bilirubin,Urine Negative (Negative); Blood,Urine Small (Negative); Color,Urine Light Yellow; Glucose,Urine (UA) Negative (Negative); Ketones,Urine Negative (Negative); Leukocyte Esterase,Urine Negative (Negative); Nitrite,Urine Negative (Negative); PH, Urine 6.5 (5.0-8.0); Protein,Urine 2+ (Negative); RBC,Urine 7 /hpf (0-5); Specific Gravity,Urine 1.008 (1.001-1.035); Urobilinogen,Urine <2.0 mg/dL (<2.0); WBC,Urine <1 /hpf (0-5)
[2019-06-04] MEDS ORDERED: POTASSIUM CHLORIDE 20 MEQ in WATER FOR INJECTION 1 100ML.BAG IVPB ONE (01:30)
[2019-06-04] MEDS ORDERED: POTASSIUM CHLORIDE 10 MEQ in WATER FOR INJECTION 1 100ML.BAG IVPB SCH (02:00)
[2019-06-04 02:58] VITALS: BP 176/80; PULSE 86; RESP 18; TEMP 98.3
== END 2019-06-04 03:05 | disposition home or self-care (01) ==
LOC: EC 22:41
DX: L03.116 Cellulitis of left lower limb (principal); L03.115 Cellulitis of right lower limb; R79.89 Other specified abnormal findings of blood chemistry; R06.02 Shortness of breath; E11.9 Type 2 diabetes mellitus without complications; E78.5 Hyperlipidemia, unspecified; I10 Essential (primary) hypertension; N40.0 Benign prostatic hyperplasia without lower urinary tract symptoms; F41.9 Anxiety disorder, unspecified; F17.200 Nicotine dependence, unspecified, uncomplicated; Z88.5 Allergy status to narcotic agent; Z79.82 Long term (current) use of aspirin; Z79.84 Long term (current) use of oral hypoglycemic drugs; Z79.899 Other long term (current) drug therapy
CPT/HCPCS: 36415; 93005; 83880; 80053; 85025; 81001; 71046; 99283; 96365; 96366; J3480

== ENCOUNTER 2019-07-16 17:58 | Inpatient (IN) | payer MEDICARE ==
[2019-07-16] MEDS ORDERED: SODIUM CHLORIDE 0.9% 1,000 ML IV STA ×2 (18:23)
--- NOTE | 2019-07-16 18:27 | ED ---
General Adult HPI - General Chief complaint: Chest Pain Stated complaint: chest pain, SOB Time Seen by Provider: 07/16/19 18:04 Source: patient, RN notes reviewed Mode of arrival: ambulatory Limitations: no limitations - History of Present Illness Initial comments: This 74-year-old male who presents today with complaints of dizziness and low blood pressure started this afternoon. He does admit he only had a couple coffee banana and a small bolus cereal today he drove his friend to very his appointments he suddenly felt dizzy lightheaded he denies any shortness breath or chest pain he did state his heart rate was elevated. With associated palpita tions no other complaints or modifying factors - Related Data Home Medications Medication Instructions Recorded Confirmed Atenolol [Tenormin] 25 mg PO DAILY 04/27/14 07/16/19 Benazepril HCl 40 mg PO DAILY 04/27/14 07/16/19 Tamsulosin [Flomax] 0.8 mg PO HS 04/27/14 07/16/19 amLODIPine BESYLATE [Norvasc] 10 mg PO DAILY 04/27/14 07/16/19 clonazePAM [KlonoPIN] 1 mg PO BID 04/27/14 07/16/19 metFORMIN HCL 1,000 mg PO BID 04/27/14 07/16/19 Atorvastatin [Lipitor] 40 mg PO HS 10/18/18 07/16/19 Glimepiride [Amaryl] 2 mg PO BID 10/23/18 07/16/19 Albuterol Nebulized [Ventolin 2.5 mg INHALATION RT-QID 06/03/19 07/16/19 Nebulized] Albuterol Sulfate [Proair Hfa] 1 - 2 puff INHALATION Q6HR PRN 06/03/19 07/16/19 Aspirin EC [Ecotrin Low Dose] 81 mg PO DAILY 06/03/19 07/16/19 Cyclobenzaprine [Flexeril] 10 mg PO HS 06/03/19 07/16/19 Escitalopram Oxalate [Lexapro] 10 mg PO HS 06/03/19 07/16/19 Furosemide [Lasix] 40 mg PO HS 06/03/19 07/16/19 Previous Rx's Medication Instructions Recorded buPROPion XL [Wellbutrin Xl] 300 mg PO DAILY #7 tab.er.24h 12/21/18 Allergies Allergy/AdvReac Type Severity Reaction Status Date / Time codeine Allergy Rash/Hives Verified 07/16/19 18:28 Review of Systems ROS Statement: Those systems with pertinent positive or pertinent negative responses have been documented in the HPI. ROS Other: All systems not noted in ROS Statement are negative. Past Medical History Past Medical History: Diabetes Mellitus, Hyperlipidemia, Hypertension Additional Past Medical History / Comment(s): enlarged prostate. History of Any Multi-Drug Resistant Organisms: None Reported Past Surgical History: Back Surgery Additional Past Surgical History / Comment(s): left first and second finger amputation. Past Psychological History: Anxiety Smoking Status: Current every day smoker Past Alcohol Use History: None Reported Past Drug Use History: None Reported General Exam - General Exam Comments Initial Comments: This is a well-developed well-nourished awake alert oriented 3 male Limitations: no limitations General appearance: alert, anxious Head exam: Present: atraumatic, normocephalic, normal inspection Eye exam: Present: normal appearance, PERRL, EOMI. Absent: scleral icterus, conjunctival injection, periorbital swelling ENT exam: Present: mucous membranes dry Neck exam: Present: normal inspection, full ROM, other (No stridor JVD or bruits). Absent: tenderness, meningismus, lymphadenopathy Respiratory exam: Present: normal lung sounds bilaterally. Absent: respiratory distress, wheezes, rales, rhonchi, stridor Cardiovascular Exam: Present: normal rhythm, tachycardia, normal heart sounds. Absent: systolic murmur, diastolic murmur, rubs, gallop, clicks GI/Abdominal exam: Present: soft, normal bowel sounds. Absent: distended, tenderness, guarding, rebound, rigid, bruit, pulsatile mass Extremities exam: Present: full ROM, normal capillary refill, pedal edema. Absent: tenderness, joint swelling, calf tenderness Back exam: Present: normal inspection Neurological exam: Present: alert, oriented X3, CN II-XII intact Psychiatric exam: Present: normal affect, normal mood Skin exam: Present: warm, dry, intact, normal color. Absent: rash Course Vital Signs 07/16/19 07/16/19 07/16/19 18:01 19:41 19:49 Temperature 97.9 F Pulse Rate 145 H 113 H Respiratory 18 Rate Blood Pressure 90/58 110/63 O2 Sat by Pulse 99 97 Oximetry 07/16/19 20:54 Temperature Pulse Rate 102 H Respiratory 18 Rate Blood Pressure 113/66 O2 Sat by Pulse 98 Oximetry EKG Findings - EKG Results: EKG: interpreted by CRYSTAL, sinus rhythm (Sinus tachycardia of 141 QRS 82 QT since QTC 340/[address] configuration is compared with an EKG dated 06/03/90) Medical Decision Making - Medical Decision Making I did reevaluate the patient multiple occasions. Patient did respond to IV fluids with respect to the improved heart rate and blood pressure. Patient does demonstrate evidence of acute kidney injury with elevation of his creatinine considerably higher than the previous admission last month. I did discuss the case with Dr. Card patient be admitted with nephrology consultation - Lab Data Result diagrams: 07/16/19 18:14 07/16/19 18:14 Lab Results 07/16/19 07/16/19 07/16/19 Range/Units 18:14 18:14 18:14 WBC 11.0 H (3.8-10.6) k/uL RBC 4.69 (4.30-5.90) m/uL Hgb 13.6 (13.0-17.5) gm/dL Hct 41.2 (39.0-53.0) % MCV 87.8 (80.0-100.0) fL MCH 29.0 (25.0-35.0) pg MCHC 33.1 (31.0-37.0) g/dL RDW 15.4 (11.5-15.5) % Plt Count 221 (150-450) k/uL Neutrophils % 69 % Lymphocytes % 21 % Monocytes % 6 % Eosinophils % 1 % Basophils % 0 % Neutrophils # 7.6 (1.3-7.7) k/uL Lymphocytes # 2.3 (1.0-4.8) k/uL Monocytes # 0.7 (0-1.0) k/uL Eosinophils # 0.1 (0-0.7) k/uL Basophils # 0.0 (0-0.2) k/uL PT 9.6 (9.0-12.0) sec INR 0.9 (<1.2) APTT 24.4 (22.0-30.0) sec Sodium 138 (137-145) mmol/L Potassium 4.0 (3.5-5.1) mmol/L Chloride 102 (98-107) mmol/L Carbon Dioxide 19 L (22-30) mmol/L Anion Gap 17 mmol/L BUN 32 H (9-20) mg/dL Creatinine 2.17 H (0.66-1.25) mg/dL Est GFR (CKD-EPI)AfAm 33 (>60 ml/min/1.73 sqM) Est GFR (CKD-EPI)NonAf 29 (>60 ml/min/1.73 sqM) Glucose 137 H (74-99) mg/dL Calcium 9.4 (8.4-10.2) mg/dL Magnesium 1.9 (1.6-2.3) mg/dL Total Bilirubin 0.5 (0.2-1.3) mg/dL AST 27 (17-59) U/L ALT 33 (21-72) U/L Alkaline Phosphatase 79 (38-126) U/L Creatine Kinase 220 H (55-170) U/L Troponin I (0.000-0.034) ng/mL Total Protein 6.9 (6.3-8.2) g/dL Albumin 4.1 (3.5-5.0) g/dL Lipase 115 (23-300) U/L Urine Color Urine Appearance (Clear) Urine pH (5.0-8.0) Ur Specific [place] (1.001-1.035) Urine Protein (Negative) Urine Glucose (UA) (Negative) Urine Ketones (Negative) Urine Blood (Negative) Urine Nitrite (Negative) Urine Bilirubin (Negative) Urine Urobilinogen (<2.0) mg/dL Ur Leukocyte Esterase (Negative) Urine RBC (0-5) /hpf Urine WBC (0-5) /hpf Ur Squamous Epith Cells (0-4) /hpf Urine Bacteria (None) /hpf Hyaline Casts (0-2) /lpf Urine Mucus (None) /hpf 07/16/19 07/16/19 Range/Units 18:14 20:04 WBC (3.8-10.6) k/uL RBC (4.30-5.90) m/uL Hgb (13.0-17.5) gm/dL Hct (39.0-53.0) % MCV (80.0-100.0) fL MCH (25.0-35.0) pg MCHC (31.0-37.0) g/dL RDW (11.5-15.5) % Plt Count (150-450) k/uL Neutrophils % % Lymphocytes % % Monocytes % % Eosinophils % % Basophils % % Neutrophils # (1.3-7.7) k/uL Lymphocytes # (1.0-4.8) k/uL Monocytes # (0-1.0) k/uL Eosinophils # (0-0.7) k/uL Basophils # (0-0.2) k/uL PT (9.0-12.0) sec INR (<1.2) APTT (22.0-30.0) sec Sodium (137-145) mmol/L Potassium (3.5-5.1) mmol/L Chloride (98-107) mmol/L Carbon Dioxide (22-30) mmol/L Anion Gap mmol/L BUN (9-20) mg/dL Creatinine (0.66-1.25) mg/dL Est GFR (CKD-EPI)AfAm (>60 ml/min/1.73 sqM) Est GFR (CKD-EPI)NonAf (>60 ml/min/1.73 sqM) Glucose (74-99) mg/dL Calcium (8.4-10.2) mg/dL Magnesium (1.6-2.3) mg/dL Total Bilirubin (0.2-1.3) mg/dL AST (17-59) U/L ALT (21-72) U/L Alkaline Phosphatase (38-126) U/L Creatine Kinase (55-170) U/L Troponin I 0.013 (0.000-0.034) ng/mL Total Protein (6.3-8.2) g/dL Albumin (3.5-5.0) g/dL Lipase (23-300) U/L Urine Color Yellow Urine Appearance Clear (Clear) Urine pH 5.5 (5.0-8.0) Ur Specific [place] 1.014 (1.001-1.035) Urine Protein 2+ H (Negative) Urine Glucose (UA) Negative (Negative) Urine Ketones Trace H (Negative) Urine Blood Trace H (Negative) Urine Nitrite Negative (Negative) Urine Bilirubin Negative (Negative) Urine Urobilinogen <2.0 (<2.0) mg/dL Ur Leukocyte Esterase Trace H (Negative) Urine RBC 2 (0-5) /hpf Urine WBC 3 (0-5) /hpf Ur Squamous Epith Cells 1 (0-4) /hpf Urine Bacteria Rare H (None) /hpf Hyaline Casts 6 H (0-2) /lpf Urine Mucus Rare H (None) /hpf - Radiology Data Radiology results: report reviewed (I did review the imaging and report evidence of left lower lobe atelectasis), image reviewed Disposition Clinical Impression: Acute kidney injury, Dehydration, Hypotensive episode, Sinus tachycardia Disposition: ADMITTED IP TO THIS HOSP Condition: Fair Referrals: Eden Cisneros DO [Primary Care Provider] - 1-2 days
[2019-07-16 19:07] LABS: Basophils % (A) 0 %; Eosinophils # (A) 0.1 k/uL (0-0.7); Eosinophils % (A) 1 %; HCT 41.2 % (39.0-53.0); HGB 13.6 gm/dL (13.0-17.5); Lymphocytes # (A) 2.3 k/uL (1.0-4.8); Lymphocytes % (A) 21 %; MCHC 33.1 g/dL (31.0-37.0); MCV 87.8 fL (80.0-100.0); Mean Platelet Volume 8.1; Monocytes # (A) 0.7 k/uL (0-1.0); Monocytes % (A) 6 %; Neutrophils # (A) 7.6 k/uL (1.3-7.7); Neutrophils % (A) 69 %; Platelet Count 221 k/uL (150-450); RBC 4.69 m/uL (4.30-5.90); RDW 15.4 % (11.5-15.5)
[2019-07-16 19:15] LABS: Albumin 4.1 g/dL (3.5-5.0); Calcium 9.4 mg/dL (8.4-10.2); Magnesium 1.9 mg/dL (1.6-2.3); Total Bilirubin 0.5 mg/dL (0.2-1.3); Total Protein 6.9 g/dL (6.3-8.2)
[2019-07-16 19:16] LABS: INR 0.9 (<1.2); Partial Thromboplastin Time 24.4 sec (22.0-30.0); Prothrombin Time 9.6 sec (9.0-12.0)
--- NOTE | 2019-07-16 19:33 | XR ---
EXAMINATION TYPE: XR chest 2V DATE OF EXAM: 07/16/2019 COMPARISON: 06/04/2019 HISTORY: Chest pain TECHNIQUE: Frontal and lateral views of the chest are obtained. FINDINGS: There is no heart failure nor confluent pneumonic infiltrate. Costophrenic angles are vandana r. Thoracic aorta is atheromatous. There is right central venous catheter with the tip in the superio r vena cava. There is small linear density at the left lower lobe. IMPRESSION: Minimal subsegmental atelectasis left lower lobe. Otherwise negative exam. No heart fail ure. No pleural effusion.
[2019-07-16 20:18] LABS: Appearance,Urine Clear (Clear); Bacteria,Urine Rare /hpf; Bilirubin,Urine Negative (Negative); Blood,Urine Trace (Negative); Color,Urine Yellow; Glucose,Urine (UA) Negative (Negative); Hyaline Casts,Urine 6 /lpf (0-2); Ketones,Urine Trace (Negative); Leukocyte Esterase,Urine Trace (Negative); Mucus,Urine Rare /hpf; Nitrite,Urine Negative (Negative); PH, Urine 5.5 (5.0-8.0); Protein,Urine 2+ (Negative); RBC,Urine 2 /hpf (0-5); Specific Gravity,Urine 1.014 (1.001-1.035); Squamous Epithelial Cell,Urine 1 /hpf (0-4); Urobilinogen,Urine <2.0 mg/dL (<2.0); WBC,Urine 3 /hpf (0-5)
[2019-07-16] MEDS ORDERED: NALOXONE 0.4 MG/ML 1 ML VIAL IV PRN (21:40)
[2019-07-17] MEDS: SODIUM CHLORIDE 0.9% 1,000 ML IV SCH ×3 (01:29→23:57)
[2019-07-17 07:10] LABS: Glucose,Whole Blood 118 mg/dL (75-99)
[2019-07-17] MEDS: INSULIN ASPART (NovoLOG) 100 UNIT/ML VIAL SQ SCH ×4 (08:03→21:02)
[2019-07-17] MEDS: GLIMEPIRIDE 2 MG TAB PO SCH ×2 (08:08→21:10)
[2019-07-17] MEDS: ASPIRIN 81 MG PO SCH (08:08)
[2019-07-17] MEDS: amLODIPine 10 MG TAB PO SCH (08:08)
[2019-07-17] MEDS: buPROPion XL 300 MG TAB.ER.24H PO SCH (08:08)
[2019-07-17] MEDS: clonazePAM 1 MG TAB PO SCH ×2 (08:08→21:10)
[2019-07-17] MEDS: ATENOLOL 25 MG TAB PO SCH (08:08)
[2019-07-17] MEDS: ALBUTEROL NEBULIZED 2.5 MG/3 ML INHALATION SCH ×4 (08:18→19:38)
[2019-07-17 08:33] LABS: C Reactive Protein 43.6 mg/L (<10.0); Calcium 8.6 mg/dL (8.4-10.2); Potassium 3.9 mmol/L (3.5-5.1)
[2019-07-17 08:58] LABS: Basophils % (A) 1 %; Eosinophils # (A) 0.1 k/uL (0-0.7); Eosinophils % (A) 2 %; HCT 36.3 % (39.0-53.0); HGB 12.1 gm/dL (13.0-17.5); Lymphocytes # (A) 1.2 k/uL (1.0-4.8); Lymphocytes % (A) 19 %; MCH 29.5 pg (25.0-35.0); MCHC 33.3 g/dL (31.0-37.0); MCV 88.5 fL (80.0-100.0); Mean Platelet Volume 8.1; Monocytes # (A) 0.5 k/uL (0-1.0); Monocytes % (A) 8 %; Neutrophils # (A) 4.2 k/uL (1.3-7.7); Neutrophils % (A) 69 %; Platelet Count 170 k/uL (150-450); RDW 15.4 % (11.5-15.5); WBC 6.2 k/uL (3.8-10.6)
[2019-07-17] MEDS ORDERED: LISINOPRIL 20 MG TAB PO SCH (09:00)
[2019-07-17] MEDS ORDERED: metFORMIN 500 MG TAB PO SCH (09:00)
[2019-07-17] MEDS: metFORMIN 500 MG TAB PO SCH ×2 (10:01→18:34)
[2019-07-17 11:12] LABS: Erythrocyte Sedimentation Rate 15 mm/hr (0-15)
--- NOTE | 2019-07-17 11:59 | CONS ---
CONSULTATION REASON FOR CONSULT: Renal failure. HISTORY OF PRESENT ILLNESS: Patient is a 74-year-old male who has a history of hypertension, type 2 diabetes. He was admitted to the hospital with complaints of chest pain. He was also dizzy and lightheaded. Patient was noted to have a rapid heart rate as he was at 145 beats per minute on initial admission yesterday. EKG shows supraventricular tachycardia. Patient's heart rate is down now. He denies any chest pains or shortness of breath. His creatinine was noted to be 2.17 and on admission it is now down to 1.7. Patient is maintained on IV fluids. He denies use of any nonsteroidal anti-inflammatory agents prior to admission. He was maintained on GRIS inhibitors and patient denies prior history of kidney diseases. PAST MEDICAL HISTORY: Diabetes, hypertension, BPH, dyslipidemia. PAST SURGICAL HISTORY: Back surgery. SOCIAL HISTORY: Positive for smoking. No history of drug abuse or alcohol abuse. MEDICATIONS: Prior to admission included Amaryl, Lipitor, metformin, Klonopin, Norvasc, Flomax, benazepril, Tenormin, Pro Air, Flexeril, aspirin, Lexapro, Lasix, and Wellbutrin. ALLERGIES: Include which CODEINE which causes rash and hives. REVIEW OF SYSTEMS: As per HPI. Other systems negative. PHYSICAL EXAMINATION: Patient is comfortable, awake, alert, oriented x3, not in any acute distress. Blood pressure was 169/80, heart rate 81 per minute. He is afebrile. Examination of the heart S1, S2. Examination of the lungs, bilateral breath sounds are heard. Abdomen is soft, nontender. Examination of the lower extremities shows trace edema bilaterally. 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 LABS: Show sodium 141, potassium 3.9, chloride 106, BUN 29, serum creatinine 1.7, hemoglobin 12.1 g/dL. UA shows 2+ protein, trace blood. Previous labs show creatinine of 1.5 on 06/03/2019 and 1.1 on 10/23/2018. ASSESSMENT: 1. Acute kidney injury, appears to be prerenal, currently improved. Patient is maintained on IV fluids. I will decrease the fluid rate to about 50 mL an hour as he does have some lower extremity edema. The GRIS inhibitors are currently on hold. However, if the patient's blood pressure remains elevated, we can resume low-dose GRIS inhibitors. The GFR has improved. Therefore, we can continue with the metformin for now. 2. Rule out chronic kidney disease. Previous creatinine was 1.5 on 06/03/2019, and another creatinine 1.1 on 10/23/2018. However, patient does have proteinuria. He may very well have underlying diabetic nephropathy. 3. Tachycardia on admission. EKG shows supraventricular tachycardia, currently improved. PLAN: Decrease fluids to 50 mL an hour. If patient continues to maintain good oral intake, I will discontinue the IV fluids in a.m. If his blood pressure remains elevated, we can resume low-dose GRIS inhibitors. Check ultrasound of the kidneys and patient will need followup as outpatient for CKD. Thank you for this consultation. Will continue to follow the patient with you during his hospitalization. HIMA / REHAN: [id number] /
[2019-07-17 12:04] LABS: Glucose,Whole Blood 99 mg/dL (75-99)
--- NOTE | 2019-07-17 15:57 | US ---
EXAMINATION TYPE: US renals and bladder DATE OF EXAM: 07/17/2019 COMPARISON: CT's CLINICAL HISTORY: rf. EXAM MEASUREMENTS: Right Kidney: 10.9 x 5.1 x 5.7 cm Left Kidney: 10.9 x 5.3 x 5.9 cm Right Kidney: lower pole cyst measures 2.2 x 1.9 x 1.7 cm. Left Kidney: multiple cysts, largest measures 2.6 x 3.2 x 3.2 cm Bladder: wnl Bilateral Jets seen: yes Cortical medullary differentiation is maintained. No evident hydronephrosis or pathologic calcification. IMPRESSION: Renal cysts
[2019-07-17 16:23] LABS: Glucose,Whole Blood 136 mg/dL (75-99)
[2019-07-17 20:10] VITALS: RESP 17
[2019-07-17] MEDS ORDERED: TAMSULOSIN 0.4 MG CAP.ER.24H PO SCH (21:00)
[2019-07-17] MEDS ORDERED: ATORVASTATIN 40 MG TAB PO SCH (21:00)
[2019-07-17] MEDS ORDERED: ESCITALOPRAM 10 MG TAB PO SCH (21:00)
[2019-07-17] MEDS ORDERED: CYCLOBENZAPRINE 10 MG TAB PO SCH (21:00)
[2019-07-17] MEDS ORDERED: FUROSEMIDE 40 MG TAB PO SCH (21:00)
[2019-07-17 21:15] LABS: Glucose,Whole Blood 79 mg/dL (75-99)
--- NOTE | 2019-07-17 22:06 | P.HPIM ---
History of Present Illness H&P Date: 07/17/19 Bernardo Boston is a 74 yo M with hx HTN, HLD, T2DM, agent orange exposure, depression who presented to [facility] ED complaining of persistent dizziness. He states he ran out of his atenolol a few days ago and was frustrated that he was unable to get an appointment to refill his medication. He ran some errands and then became dizzy. He also noted palpitations, denies chest pain or shortness of breath. When his symptoms did not resolve after rest and fluids he presented to the ED. On arrival HR 145 BP 90/60, Cr 2.17. EKG showed SVT. Pt was given IVF with improvement in HR to 104 and BP 110/60. Review of Systems All systems: negative Past Medical History Past Medical History: Diabetes Mellitus, Hyperlipidemia, Hypertension Additional Past Medical History / Comment(s): enlarged prostate. History of Any Multi-Drug Resistant Organisms: None Reported Past Surgical History: Back Surgery Additional Past Surgical History / Comment(s): left first and second finger amputation. Past Anesthesia/Blood Transfusion Reactions: No Reported Reaction Past Psychological History: Anxiety Smoking Status: Current every day smoker Past Alcohol Use History: None Reported Additional Past Alcohol Use History / Comment(s): 4 ciggs daily Past Drug Use History: None Reported - Past Family History Brother(s) Family Medical History: Cancer Mother Family Medical History: Diabetes Mellitus, Renal Disease Medications and Allergies Home Medications Medication Instructions Recorded Confirmed Type Atenolol [Tenormin] 25 mg PO DAILY 04/27/14 07/16/19 History Benazepril HCl 40 mg PO DAILY 04/27/14 07/16/19 History Tamsulosin [Flomax] 0.8 mg PO HS 04/27/14 07/16/19 History amLODIPine BESYLATE [Norvasc] 10 mg PO DAILY 04/27/14 07/16/19 History clonazePAM [KlonoPIN] 1 mg PO BID 04/27/14 07/16/19 History metFORMIN HCL 1,000 mg PO BID 04/27/14 07/16/19 History Atorvastatin [Lipitor] 40 mg PO HS 10/18/18 07/16/19 History buPROPion XL [Wellbutrin Xl] 300 mg PO DAILY #7 tab.er.24h 10/18/18 07/16/19 Rx Glimepiride [Amaryl] 2 mg PO BID 10/23/18 07/16/19 History Albuterol Nebulized [Ventolin 2.5 mg INHALATION RT-QID 06/03/19 07/16/19 History Nebulized] Albuterol Sulfate [Proair Hfa] 1 - 2 puff INHALATION Q6HR PRN 06/03/19 07/16/19 History Aspirin EC [Ecotrin Low Dose] 81 mg PO DAILY 06/03/19 07/16/19 History Cyclobenzaprine [Flexeril] 10 mg PO HS 06/03/19 07/16/19 History Escitalopram Oxalate [Lexapro] 10 mg PO HS 06/03/19 07/16/19 History Furosemide [Lasix] 40 mg PO HS 06/03/19 07/16/19 History Allergies Allergy/AdvReac Type Severity Reaction Status Date / Time codeine Allergy Rash/Hives Verified 07/16/19 18:28 Physical Exam Vitals: Vital Signs Temp Pulse Pulse Resp BP BP Pulse Ox 07/17/19 20:09 98.4 F 60 17 137/66 90 L 07/17/19 19:52 75 07/17/19 19:38 74 07/17/19 16:00 16 07/17/19 15:47 82 07/17/19 15:37 79 07/17/19 14:55 98.0 F 96 16 165/80 95 07/17/19 13:10 80 07/17/19 12:56 80 07/17/19 08:31 81 07/17/19 08:20 81 07/17/19 08:10 16 07/17/19 07:20 98.1 F 94 16 169/80 95 07/17/19 02:01 97.8 F 77 16 109/62 99 07/16/19 23:30 97.8 F 92 16 161/75 97 07/16/19 23:02 96 18 123/72 98 07/16/19 22:02 93 18 113/58 97 Intake and Output 07/17/19 07/17/19 07/17/19 06:59 14:59 22:59 Intake Total 600 Balance 600 Intake: Intake, IV Titration 600 Amount Sodium Chloride 0.9% 1, 600 000 ml @ 100 mls/hr IV . Q10H STA Rx#:[id number] Other: Voiding Method Toilet Toilet Toilet # Voids 1 2 1 Gen. Well-developed well-nourished no apparent distress. Vitals reviewed HEENT. normocephalic, atraumatic. TMs clear. Mucous membranes moist Neck. Supple, no thyromegaly, no JVD CV. Regular rate and rhythm, no murmur. Peripheral pulses 2+ Lungs. Normal inspiratory effort, clear Abdomen. Soft, nontender, nondistended, no organomegaly Extremity. no edema, cyanosis, clubbing Neuro. Alert and oriented 3, no focal deficits Skin. Warm and dry Results CBC & Chem 7: 07/17/19 07:50 07/17/19 07:50 Labs: Abnormal Lab Results - Last 24 Hours (Table) 07/17/19 07/17/19 07/17/19 Range/Units 07:09 07:50 07:50 RBC 4.10 L (4.30-5.90) m/uL Hgb 12.1 L (13.0-17.5) gm/dL Hct 36.3 L (39.0-53.0) % BUN 29 H (9-20) mg/dL Creatinine 1.71 H (0.66-1.25) mg/dL Glucose 179 H (74-99) mg/dL POC Glucose (mg/dL) 118 H (75-99) mg/dL C-Reactive Protein 43.6 H (<10.0) mg/L 07/17/19 Range/Units 16:20 RBC (4.30-5.90) m/uL Hgb (13.0-17.5) gm/dL Hct (39.0-53.0) % BUN (9-20) mg/dL Creatinine (0.66-1.25) mg/dL Glucose (74-99) mg/dL POC Glucose (mg/dL) 136 H (75-99) mg/dL C-Reactive Protein (<10.0) mg/L Thrombosis Risk Factor Assmnt - Choose All That Apply Any of the Below Risk Factors Present?: Yes Each Factor Represents 1 point: Obesity (BMI >25) Other Risk Factors: Yes Each Risk Factor Represents 3 Points: Age 75 years or older Other congenital or acquired thrombophilia - If yes, enter type in comment: No Thrombosis Risk Factor Assessment Total Risk Factor Score: 4 Thrombosis Risk Factor Assessment Level: Moderate Risk Assessment and Plan (1) Acute kidney injury Current Visit: Yes Status: Acute Code(s): N17.9 - ACUTE KIDNEY FAILURE, UNSPECIFIED SNOMED Code(s): 76226791 (2) Hypertension Current Visit: Yes Status: Acute Code(s): I10 - ESSENTIAL (PRIMARY) HYPERTENSION SNOMED Code(s): 56362141 (3) Dehydration Current Visit: Yes Status: Acute Code(s): E86.0 - DEHYDRATION SNOMED Code(s): 04282899 (4) Hypotensive episode Current Visit: Yes Status: Acute Code(s): I95.9 - HYPOTENSION, UNSPECIFIED SNOMED Code(s): 51674508 (5) Sinus tachycardia Current Visit: Yes Status: Acute Code(s): R00.0 - TACHYCARDIA, UNSPECIFIED SNOMED Code(s): 64261143 Plan: 1. ARCADIO. Nephrology consulted. Vitals and creatinine improved with IVF. Hold GRIS. Cont lasix 2. T2DM. Continue home meds, accucheck/sliding scale 3. HTN. Continue BB, norvasc DVT prophylaxis SCDs
[2019-07-18 07:09] LABS: Glucose,Whole Blood 89 mg/dL (75-99)
[2019-07-18 07:54] LABS: Basophils % (A) 1 %; Eosinophils # (A) 0.1 k/uL (0-0.7); Eosinophils % (A) 2 %; HGB 12.7 gm/dL (13.0-17.5); Lymphocytes # (A) 1.3 k/uL (1.0-4.8); Lymphocytes % (A) 18 %; MCH 28.7 pg (25.0-35.0); MCHC 32.5 g/dL (31.0-37.0); MCV 88.4 fL (80.0-100.0); Mean Platelet Volume 7.4; Monocytes # (A) 0.4 k/uL (0-1.0); Monocytes % (A) 6 %; Neutrophils % (A) 72 %; Platelet Count 179 k/uL (150-450); RBC 4.42 m/uL (4.30-5.90)
[2019-07-18 08:00] LABS: Calcium 8.6 mg/dL (8.4-10.2); Potassium 3.3 mmol/L (3.5-5.1)
[2019-07-18] MEDS: ALBUTEROL NEBULIZED 2.5 MG/3 ML INHALATION SCH ×2 (08:29→11:52)
[2019-07-18] MEDS: INSULIN ASPART (NovoLOG) 100 UNIT/ML VIAL SQ SCH ×2 (08:36→11:34)
[2019-07-18] MEDS: clonazePAM 1 MG TAB PO SCH (08:41)
[2019-07-18] MEDS: buPROPion XL 300 MG TAB.ER.24H PO SCH (08:42)
[2019-07-18] MEDS: GLIMEPIRIDE 2 MG TAB PO SCH (08:42)
[2019-07-18] MEDS: ASPIRIN 81 MG PO SCH (08:42)
[2019-07-18] MEDS: metFORMIN 500 MG TAB PO SCH (08:42)
[2019-07-18] MEDS: ATENOLOL 25 MG TAB PO SCH (08:42)
[2019-07-18] MEDS: amLODIPine 10 MG TAB PO SCH (08:42)
[2019-07-18] MEDS ORDERED: Potassium Replacement Protocol 1 EACH MISC MISCELLANE PRN ×2 (08:50→09:37)
--- NOTE | 2019-07-18 09:01 | P.DS ---
Providers Date of admission: 07/16/19 21:03 Expected date of discharge: 07/18/19 Attending physician: Marlon Card MD Consults: 07/16/19 21:41 Consult Physician Routine Consulting Provider: Lisy Fitzpatrick Consult Reason/Comments: Acute kidney injury Do you want consulting provider notified?: Yes, Notify in am Primary care physician: Eden Cisneros [facility] Course: Final Diagnoses: (1) Acute kidney injury Current Visit: Yes Status: Acute Code(s): N17.9 - ACUTE KIDNEY FAILURE, UNSPECIFIED SNOMED Code(s): 33044491 (2) Hypertension Current Visit: Yes Status: Acute Code(s): I10 - ESSENTIAL (PRIMARY) HYPERTENSION SNOMED Code(s): 81841765 (3) Dehydration Current Visit: Yes Status: Acute Code(s): E86.0 - DEHYDRATION SNOMED Code(s): 70144354 (4) Hypotensive episode Current Visit: Yes Status: Acute Code(s): I95.9 - HYPOTENSION, UNSPECIFIED SNOMED Code(s): 13909192 (5) Sinus tachycardia Current Visit: Yes Status: Acute Code(s): R00.0 - TACHYCARDIA, UNSPECIFIED SNOMED Code(s): 79359431 Hospital course:Bernardo Boston is a 74 yo M with hx HTN, HLD, T2DM, agent orange exposure, depression who presented to [facility] ED complaining of persistent dizziness. He states he ran out of his atenolol a few days ago and was frustrated that he was unable to get an appointment to refill his medication. He ran some errands and then became dizzy. He also noted p alpitations, denies chest pain or shortness of breath. When his symptoms did not resolve after rest and fluids he presented to the ED. On arrival HR 145 BP 90/60, Cr 2.17. EKG showed SVT. Pt was given IVF with improvement in HR to 104 and BP 110/60. Evaluated by nephrology. Renal ultrasound reported renal cysts, no evidence of hydronephrosis or pathologic calcification, cortical medullary differentiation maintained. Cleared by nephrology for discharge. Patient is being discharged home in a stable condition with her prognosis. Exam: Gen. Alert and oriented 3, no acute distress CV. Regular rate and rhythm, no murmur. No edema. Lungs. Normal inspiratory effort, clear Abdomen. Soft, nontender, nondistended, no organomegaly. Positive bowel sounds The impression and plan of care has been dictated as directed. : I performed a history and examination of this patient, discussed the same with the dictator. I agree with the dictator's note ,documented as a scribe. Any a dditional findings or plans will be noted. Time taken: 35 minutes Patient Condition at Discharge: Stable Plan - Discharge Summary Discharge Rx Participant: Yes New Discharge Prescriptions: New Atenolol [Tenormin] 25 mg PO DAILY #30 tab Continue metFORMIN HCL 1,000 mg PO BID amLODIPine BESYLATE [Norvasc] 10 mg PO DAILY Tamsulosin [Flomax] 0.8 mg PO HS clonazePAM [KlonoPIN] 1 mg PO BID Atorvastatin [Lipitor] 40 mg PO HS buPROPion XL [Wellbutrin XL] 300 mg PO DAILY #7 tab.er.24h Glimepiride [Amaryl] 2 mg PO BID Escitalopram Oxalate [Lexapro] 10 mg PO HS Cyclobenzaprine [Flexeril] 10 mg PO HS Albuterol Nebulized [Ventolin Nebulized] 2.5 mg INHALATION RT-QID Aspirin EC [Ecotrin Low Dose] 81 mg PO DAILY Albuterol Sulfate [Proair Hfa] 1 - 2 puff INHALATION Q6HR PRN PRN Reason: Shortness Of Breath Furosemide [Lasix] 40 mg PO HS Discontinued Benazepril HCl 40 mg PO DAILY Atenolol [Tenormin] 25 mg PO DAILY Discharge Medication List Tamsulosin [Flomax] 0.8 mg PO HS 04/27/14 [History] amLODIPine BESYLATE [Norvasc] 10 mg PO DAILY 04/27/14 [History] clonazePAM [KlonoPIN] 1 mg PO BID 04/27/14 [History] metFORMIN HCL 1,000 mg PO BID 04/27/14 [History] Atorvastatin [Lipitor] 40 mg PO HS 10/18/18 [History] buPROPion XL [Wellbutrin XL] 300 mg PO DAILY #7 tab.er.24h 10/18/18 [Rx] Glimepiride [Amaryl] 2 mg PO BID 10/23/18 [History] Albuterol Nebulized [Ventolin Nebulized] 2.5 mg INHALATION RT-QID 06/03/19 [History] Albuterol Sulfate [Proair Hfa] 1 - 2 puff INHALATION Q6HR PRN 06/03/19 [History] Aspirin EC [Ecotrin Low Dose] 81 mg PO DAILY 06/03/19 [History] Cyclobenzaprine [Flexeril] 10 mg PO HS 06/03/19 [History] Escitalopram Oxalate [Lexapro] 10 mg PO HS 06/03/19 [History] Furosemide [Lasix] 40 mg PO HS 06/03/19 [History] Atenolol [Tenormin] 25 mg PO DAILY #30 tab 07/18/19 [Rx] Follow up Appointment(s)/Referral(s): [facility], [NON-STAFF] - Eden Cisneros DO [Primary Care Provider] - 3 Days Ambulatory/Diagnostic Orders: Basic Metabolic Panel [LAB.AMB] Time Frame: 3 Days, Location: None Selected Activity/Diet/Wound Care/Special Instructions: Armani on hold, secondary to renal function, reevaluate outpatient Follow-up with PCP Diet: Consistent carb Activity: Limited until follow up
[2019-07-18 09:05] VITALS: BP 164/77; PULSE 97; TEMP 98
[2019-07-18] MEDS: POTASSIUM CHLORIDE ER 20 MEQ TAB.ER PO SCH ×2 (10:16→11:33)
[2019-07-18 11:31] LABS: Glucose,Whole Blood 98 mg/dL (75-99)
--- NOTE | 2019-07-18 22:48 | PN ---
PROGRESS NOTE Patient is seen for followup for acute kidney injury. His renal function has improved. Serum creatinine is down to 1.5 from 2.17 on initial admission. Previous creatinine in May was also 1.5 mg/dL. We have a creatinine of 1.3 from January of 2018. Patient wants to go home today. On examination this morning, blood pressure was 164/77, heart rate 97 per minute. He is afebrile. EXAMINATION OF THE HEART: S1 and S2. EXAMINATION OF LUNGS: Bilateral breath sounds are heard. ABDOMEN: Soft, non-tender. Examination of lower extremities shows no evidence of edema. [employer] exam is grossly intact. Labs show sodium 144, potassium 3.3, BUN 23, serum creatinine 1.53, hemoglobin 12.7 g/dL. ASSESSMENT: 1. Acute kidney injury, prerenal, currently improving. Patient can be discharged home with plans to follow up as outpatient. 2. Chronic kidney disease, NKF stage III; previous creatinine around 1.3 to 1.1 mg/dL, most likely secondary to diabetic nephropathy. PLAN: May continue with oral Lasix. Follow up as outpatient for repeat labs in 1 to 2 weeks. blood pressure is elevated MMODL / IJN: [id number] /
== END 2019-07-18 12:57 | disposition home health service (06) | DRG 683 ==
LOC: EC 17:58 → 4SSUR 21:03
PROVIDERS: ADMIT Family Medicine; ATTEND Family Medicine
DX: N17.9 Acute kidney failure, unspecified (principal); I47.1 Supraventricular tachycardia; N18.3 Chronic kidney disease, stage 3 (moderate); I12.9 Hypertensive chronic kidney disease with stage 1 through stage 4 chronic kidney disease, or unspecified chronic kidney disease; F41.9 Anxiety disorder, unspecified; F17.200 Nicotine dependence, unspecified, uncomplicated; E86.0 Dehydration; E11.22 Type 2 diabetes mellitus with diabetic chronic kidney disease; E78.5 Hyperlipidemia, unspecified; E11.21 Type 2 diabetes mellitus with diabetic nephropathy; I95.9 Hypotension, unspecified; N28.1 Cyst of kidney, acquired; N40.0 Benign prostatic hyperplasia without lower urinary tract symptoms; Z79.82 Long term (current) use of aspirin; Z79.84 Long term (current) use of oral hypoglycemic drugs; Z79.899 Other long term (current) drug therapy; Z83.3 Family history of diabetes mellitus; Z88.5 Allergy status to narcotic agent; Z98.890 Other specified postprocedural states; Z80.9 Family history of malignant neoplasm, unspecified; Z84.1 Family history of disorders of kidney and ureter
CPT/HCPCS: 36415; 71046; 76770; 80048; 80053; 81001; 82550; 83690; 83735; 84484; 85025; 85610; 85652; 85730; 86140; 93005; 94640; 94760; 96360; 96361; 99285

== ENCOUNTER 2019-08-24 04:09 | Inpatient (IN) | payer MEDICARE ==
[2019-08-24] MEDS ORDERED: NITROGLYCERIN-D5W PMX 50 MG in DEXTROSE/WATER 1 250ML.BAG IV STA (04:28)
[2019-08-24] MEDS ORDERED: MORPHINE SULFATE 4 MG/ML SYRINGE IV STA (04:33)
[2019-08-24] MEDS ORDERED: DEXTROSE IV STA (04:33)
[2019-08-24] MEDS ORDERED: NITROGLYCERIN IV STA (04:33)
[2019-08-24] MEDS ORDERED: WATER IV STA (04:33)
[2019-08-24 05:04] LABS: Potassium 3.8 mmol/L (3.5-5.1)
[2019-08-24 05:05] LABS: Albumin 3.5 g/dL (3.5-5.0); Calcium 8.6 mg/dL (8.4-10.2); Total Bilirubin 0.4 mg/dL (0.2-1.3); Total Protein 6.1 g/dL (6.3-8.2)
--- NOTE | 2019-08-24 05:06 | XR ---
EXAMINATION TYPE: XR chest 1V portable DATE OF EXAM: 08/24/2019 COMPARISON: NONE HISTORY: Short of breath TECHNIQUE: Single frontal view of the chest is obtained. FINDINGS: There is coarse interstitial density in the lungs. Heart size is fairly normal. There is s light blunting of the costophrenic angles. IMPRESSION: Minimal pleural reaction and interstitial new pulmonary edema compared to last exam. Thi s could be acute mild congestive heart failure.
[2019-08-24 05:10] LABS: INR 0.9 (<1.2); Prothrombin Time 9.7 sec (9.0-12.0)
[2019-08-24 05:12] LABS: Partial Thromboplastin Time 21.8 sec (22.0-30.0)
[2019-08-24 05:17] LABS: Basophils % (A) 0 %; Eosinophils # (A) 0.1 k/uL (0-0.7); Eosinophils % (A) 1 %; HCT 35.1 % (39.0-53.0); HGB 11.6 gm/dL (13.0-17.5); Lymphocytes # (A) 1.7 k/uL (1.0-4.8); Lymphocytes % (A) 16 %; MCH 29.2 pg (25.0-35.0); MCV 88.4 fL (80.0-100.0); Mean Platelet Volume 7.2; Monocytes # (A) 0.4 k/uL (0-1.0); Monocytes % (A) 4 %; Neutrophils # (A) 8.2 k/uL (1.3-7.7); Neutrophils % (A) 77 %; Platelet Count 164 k/uL (150-450); RBC 3.97 m/uL (4.30-5.90); RDW 13.4 % (11.5-15.5); WBC 10.6 k/uL (3.8-10.6)
--- NOTE | 2019-08-24 07:03 | ED ---
SOB HPI - General Chief Complaint: Shortness of Breath Stated Complaint: JAS Time Seen by Provider: 08/24/19 04:14 Source: patient, EMS Mode of arrival: EMS Limitations: physical limitation (Severe dyspnea) - History of Present Illness Initial Comments: This patient is 74-year-old man who presents by ambulance to be evaluated for acute onset of dyspnea. Patient had awakened and had use the bathroom. He then noted that he was becoming increasingly short of breath. Patient states that initially there is no chest pain now tight. Now coughing with some clear sputum. No change in bowel movements. No change in urination. No leg pain MD Complaint: shortness of breath -: minutes(s) Improves With: oxygen Worsens With: lying flat Associated Symptoms: cough Treatments Prior to Arrival: oxygen, bronchodilator - Related Data Home Oxygen Therapy: No Home Medications Medication Instructions Recorded Confirmed Tamsulosin [Flomax] 0.8 mg PO HS 04/27/14 08/24/19 amLODIPine BESYLATE [Norvasc] 10 mg PO DAILY 04/27/14 08/24/19 clonazePAM [KlonoPIN] 1 mg PO BID 04/27/14 08/24/19 metFORMIN HCL 1,000 mg PO BID 04/27/14 08/24/19 Atorvastatin [Lipitor] 40 mg PO HS 10/18/18 08/24/19 Glimepiride [Amaryl] 2 mg PO BID 10/23/18 08/24/19 Aspirin EC [Ecotrin Low Dose] 81 mg PO DAILY 06/03/19 08/24/19 Cyclobenzaprine [Flexeril] 10 mg PO HS 06/03/19 08/24/19 Escitalopram Oxalate [Lexapro] 10 mg PO HS 06/03/19 08/24/19 Furosemide [Lasix] 40 mg PO HS 06/03/19 08/24/19 Benazepril HCl 40 mg PO DAILY 08/24/19 08/24/19 Previous Rx's Medication Instructions Recorded buPROPion XL [Wellbutrin XL] 300 mg PO DAILY #7 tab.er.24h 10/18/18 Atenolol [Tenormin] 25 mg PO DAILY #30 tab 07/18/19 Allergies Allergy/AdvReac Type Severity Reaction Status Date / Time codeine Allergy Rash/Hives Verified 08/24/19 09:05 Review of Systems ROS Statement: Those systems with pertinent positive or pertinent negative responses have been documented in the HPI. ROS Other: All systems not noted in ROS Statement are negative. Constitutional: Denies: fever, weakness Respiratory: Reports: cough, dyspnea. Denies: hemoptysis Cardiovascular: Reports: orthopnea. Denies: chest pain, palpitations, edema, syncope Gastrointestinal: Denies: abdominal pain, vomiting, diarrhea Musculoskeletal: Denies: back pain Skin: Denies: rash Neurological: Denies: headache, weakness Past Medical History Past Medical History: Diabetes Mellitus, Hyperlipidemia, Hypertension Additional Past Medical History / Comment(s): enlarged prostate. History of Any Multi-Drug Resistant Organisms: None Reported Past Surgical History: Back Surgery Additional Past Surgical History / Comment(s): left first and second finger amputation. Past Anesthesia/Blood Transfusion Reactions: No Reported Reaction Past Psychological History: Anxiety Smoking Status: Current every day smoker Past Alcohol Use History: None Reported Past Drug Use History: None Reported - Past Family History Brother(s) Family Medical History: Cancer Mother Family Medical History: Diabetes Mellitus, Renal Disease General Exam Limitations: no limitations General appearance: alert, in distress Head exam: Present: atraumatic, normocephalic Eye exam: Present: normal appearance. Absent: scleral icterus, conjunctival injection Neck exam: Present: normal inspection Respiratory exam: Present: respiratory distress, wheezes, accessory muscle use, decreased breath sounds. Absent: rales, rhonchi, stridor Cardiovascular Exam: Present: normal rhythm, tachycardia, normal heart sounds. Absent: systolic murmur, diastolic murmur, rubs, gallop GI/Abdominal exam: Present: soft. Absent: distended, tenderness, guarding, rebound, rigid, mass Extremities exam: Present: normal inspection, normal capillary refill. Absent: pedal edema, calf tenderness Back exam: Present: normal inspection. Absent: CVA tenderness (R), CVA tenderness (L) Neurological exam: Present: alert Skin exam: Present: intact, diaphoretic, mottled. Absent: rash Course Vital Signs 08/24/19 08/24/19 08/24/19 04:10 04:13 04:14 Temperature 97.1 F L Pulse Rate 134 H Respiratory 40 H 40 H Rate Blood Pressure 251/165 O2 Sat by Pulse 97 81 L Oximetry 08/24/19 08/24/19 08/24/19 04:18 04:20 04:24 Temperature Pulse Rate Respiratory Rate Blood Pressure 251/165 235/146 198/127 O2 Sat by Pulse 99 100 99 Oximetry 08/24/19 08/24/19 08/24/19 04:26 04:32 04:38 Temperature Pulse Rate 108 H Respiratory 18 Rate Blood Pressure 180/111 169/103 170/100 O2 Sat by Pulse 99 99 99 Oximetry 08/24/19 08/24/19 08/24/19 04:42 04:50 04:52 Temperature Pulse Rate 110 H 109 H 108 H Respiratory 19 16 16 Rate Blood Pressure 160/106 140/96 146/97 O2 Sat by Pulse 99 99 99 Oximetry 08/24/19 08/24/19 08/24/19 06:00 07:25 08:31 Temperature Pulse Rate 103 H 93 87 Respiratory 16 18 18 Rate Blood Pressure 139/94 159/96 159/92 O2 Sat by Pulse 99 99 100 Oximetry Medical Decision Making - Medical Decision Making This patient is 74-year-old man brought in for acute dyspnea and found to be in hypertensive emergency with pulmonary edema. I did spend probably the first 25 minutes of his hospital course at the bedside administering nitroglycerin in aliquots, and monitoring his blood pressure in response to medication. Total of 2400 g administered. He did respond well to this and to the BiPAP that had been placed on arrival. The patient stabilized and admitted. - Lab Data Result diagrams: 08/24/19 04:45 08/24/19 04:45 Lab Results 08/24/19 08/24/19 08/24/19 Range/Units 04:45 04:45 04:45 WBC 10.6 (3.8-10.6) k/uL RBC 3.97 L (4.30-5.90) m/uL Hgb 11.6 L (13.0-17.5) gm/dL Hct 35.1 L (39.0-53.0) % MCV 88.4 (80.0-100.0) fL MCH 29.2 (25.0-35.0) pg MCHC 33.0 (31.0-37.0) g/dL RDW 13.4 (11.5-15.5) % Plt Count 164 (150-450) k/uL Neutrophils % 77 % Lymphocytes % 16 % Monocytes % 4 % Eosinophils % 1 % Basophils % 0 % Neutrophils # 8.2 H (1.3-7.7) k/uL Lymphocytes # 1.7 (1.0-4.8) k/uL Monocytes # 0.4 (0-1.0) k/uL Eosinophils # 0.1 (0-0.7) k/uL Basophils # 0.0 (0-0.2) k/uL PT (9.0-12.0) sec INR (<1.2) APTT (22.0-30.0) sec Sodium 143 (137-145) mmol/L Potassium 3.8 (3.5-5.1) mmol/L Chloride 105 (98-107) mmol/L Carbon Dioxide 29 (22-30) mmol/L Anion Gap 9 mmol/L BUN 32 H (9-20) mg/dL Creatinine 2.05 H (0.66-1.25) mg/dL Est GFR (CKD-EPI)AfAm 36 (>60 ml/min/1.73 sqM) Est GFR (CKD-EPI)NonAf 31 (>60 ml/min/1.73 sqM) Glucose 183 H (74-99) mg/dL Calcium 8.6 (8.4-10.2) mg/dL Magnesium 2.0 (1.6-2.3) mg/dL Total Bilirubin 0.4 (0.2-1.3) mg/dL AST 45 (17-59) U/L ALT 45 (21-72) U/L Alkaline Phosphatase 71 (38-126) U/L Troponin I (0.000-0.034) ng/mL NT-Pro-B Natriuret Pep 3660 pg/mL Total Protein 6.1 L (6.3-8.2) g/dL Albumin 3.5 (3.5-5.0) g/dL 08/24/19 08/24/19 Range/Units 04:45 04:45 WBC (3.8-10.6) k/uL RBC (4.30-5.90) m/uL Hgb (13.0-17.5) gm/dL Hct (39.0-53.0) % MCV (80.0-100.0) fL MCH (25.0-35.0) pg MCHC (31.0-37.0) g/dL RDW (11.5-15.5) % Plt Count (150-450) k/uL Neutrophils % % Lymphocytes % % Monocytes % % Eosinophils % % Basophils % % Neutrophils # (1.3-7.7) k/uL Lymphocytes # (1.0-4.8) k/uL Monocytes # (0-1.0) k/uL Eosinophils # (0-0.7) k/uL Basophils # (0-0.2) k/uL PT 9.7 (9.0-12.0) sec INR 0.9 (<1.2) APTT 21.8 L (22.0-30.0) sec Sodium (137-145) mmol/L Potassium (3.5-5.1) mmol/L Chloride (98-107) mmol/L Carbon Dioxide (22-30) mmol/L Anion Gap mmol/L BUN (9-20) mg/dL Creatinine (0.66-1.25) mg/dL Est GFR (CKD-EPI)AfAm (>60 ml/min/1.73 sqM) Est GFR (CKD-EPI)NonAf (>60 ml/min/1.73 sqM) Glucose (74-99) mg/dL Calcium (8.4-10.2) mg/dL Magnesium (1.6-2.3) mg/dL Total Bilirubin (0.2-1.3) mg/dL AST (17-59) U/L ALT (21-72) U/L Alkaline Phosphatase (38-126) U/L Troponin I <0.012 (0.000-0.034) ng/mL NT-Pro-B Natriuret Pep pg/mL Total Protein (6.3-8.2) g/dL Albumin (3.5-5.0) g/dL Critical Care Time Critical Care Time: Yes (40 minutes) Disposition Clinical Impression: Respiratory distress, Hypertensive emergency, CHF (congestive heart failure), Acute kidney injury Disposition: ADMITTED IP TO THIS [facility] Condition: Critical
[2019-08-24] MEDS ORDERED: metFORMIN 500 MG TAB PO SCH (07:30)
[2019-08-24] MEDS: ALBUTEROL NEBULIZED 2.5 MG/3 ML INHALATION SCH ×4 (08:07→19:33)
[2019-08-24] MEDS ORDERED: GLIMEPIRIDE 2 MG TAB PO SCH (09:00)
[2019-08-24 09:11] LABS: Glucose,Whole Blood 164 mg/dL (75-99)
[2019-08-24] MEDS: ATENOLOL 25 MG TAB PO SCH (09:11)
[2019-08-24] MEDS: amLODIPine 10 MG TAB PO SCH (09:11)
[2019-08-24] MEDS: clonazePAM 1 MG TAB PO SCH ×2 (09:11→20:25)
[2019-08-24] MEDS: buPROPion XL 300 MG TAB.ER.24H PO SCH (09:11)
[2019-08-24] MEDS ORDERED: FUROSEMIDE 10 MG/ML 2 ML VIAL IV ONE (09:29)
--- NOTE | 2019-08-24 09:33 | P.CRDCN ---
History of Present Illness Consult date: 08/24/19 History of present illness: This is a 74-year-old gentleman with history of hypertension, diabetes, and also chronic renal failure was recently in the hospital with tachycardia and some dehydration. Patient was given IV fluids and were discharged home. Patient now is readmitted to the hospital with increasing swelling in the legs and shortness of breath. A chest x-ray was size to of CHF. His BNP is elevated. His blood pressure was also very high on admission patient has been IV nitroglycerin. His creatinine is more than 2. He denied any chest pain or palpitations. No dizziness or syncope. No history of known ischemic heart disease. No history of myocardial infarction or stroke. Patient is going to give a dose of IV Lasix. I'm going to start him on by mouth hydralazine. He is also on beta blockers and amlodipine. Further recommendations depend upon the clinical course. An echocardiogram is being done. The possibility of underlying ischemic heart disease needs to be ruled out. Review of Systems As per the chart Past Medical History Past Medical History: Cancer, Diabetes Mellitus, GERD/Reflux, Hyperlipidemia, Hypertension, Skin Disorder Additional Past Medical History / Comment(s): enlarged prostate, skin cancer, agent orange History of Any Multi-Drug Resistant Organisms: None Reported Past Surgical History: Back Surgery Additional Past Surgical History / Comment(s): left first and second finger amputation, titanium screws in back Past Anesthesia/Blood Transfusion Reactions: No Reported Reaction Smoking Status: Current every day smoker - Past Family History Brother(s) Family Medical History: Cancer Mother Family Medical History: Diabetes Mellitus, Renal Disease Medications and Allergies Home Medications Medication Instructions Recorded Confirmed Type Tamsulosin [Flomax] 0.8 mg PO HS 04/27/14 08/24/19 History amLODIPine BESYLATE [Norvasc] 10 mg PO DAILY 04/27/14 08/24/19 History clonazePAM [KlonoPIN] 1 mg PO BID 04/27/14 08/24/19 History metFORMIN HCL 1,000 mg PO BID 04/27/14 08/24/19 History Atorvastatin [Lipitor] 40 mg PO HS 10/18/18 08/24/19 History buPROPion XL [Wellbutrin XL] 300 mg PO DAILY #7 tab.er.24h 10/18/18 08/24/19 Rx Glimepiride [Amaryl] 2 mg PO BID 10/23/18 08/24/19 History Aspirin EC [Ecotrin Low Dose] 81 mg PO DAILY 06/03/19 08/24/19 History Cyclobenzaprine [Flexeril] 10 mg PO HS 06/03/19 08/24/19 History Escitalopram Oxalate [Lexapro] 10 mg PO HS 06/03/19 08/24/19 History Furosemide [Lasix] 40 mg PO HS 06/03/19 08/24/19 History Atenolol [Tenormin] 25 mg PO DAILY #30 tab 07/18/19 08/24/19 Rx Benazepril HCl 40 mg PO DAILY 08/24/19 08/24/19 History Allergies Allergy/AdvReac Type Severity Reaction Status Date / Time codeine Allergy Rash/Hives Verified 08/24/19 09:05 Physical Exam Vitals: Vital Signs Temp Pulse Resp BP Pulse Ox 08/24/19 09:09 97.8 F 14 95 08/24/19 08:31 87 18 159/92 100 08/24/19 07:25 93 18 159/96 99 08/24/19 06:00 103 H 16 139/94 99 08/24/19 04:52 108 H 16 146/97 99 08/24/19 04:50 109 H 16 140/96 99 08/24/19 04:42 110 H 19 160/106 99 08/24/19 04:38 108 H 18 170/100 99 08/24/19 04:32 169/103 99 08/24/19 04:26 180/111 99 08/24/19 04:24 198/127 99 08/24/19 04:20 235/146 100 08/24/19 04:18 251/165 99 08/24/19 04:14 97.1 F L 134 H 40 H 251/165 81 L 08/24/19 04:13 97 08/24/19 04:10 40 H Intake and Output 08/23/19 08/24/19 08/24/19 22:59 06:59 14:59 Other: Weight 74.843 kg GENERAL EXAM: Patient is alert and oriented and doesn't appear to be in any acute distress HEENT: Normocephalic. Normal reaction of pupils, equal size, normal range of extraocular motion. No erythema or exudates in the throat. NECK: No masses, no nuchal rigidity. CHEST: No chest wall deformity. LUNGS: Equal air entry with no crackles or wheeze. HEART: S1 and S2 normal with no audible mumurs or gallops. Regular rhythm, femorals equal on both sides.. ABDOMEN: No hepatosplenomegaly, normal bowel sounds, no guarding or rigidity. SKIN: No rashes CENTRAL NERVOUS SYSTEM: No focal deficits. EXTREMITIES: 2+ edema Results 08/24/19 04:45 08/24/19 04:45 Cardiac Enzymes 08/24/19 08/24/19 Range/Units 04:45 04:45 AST 45 (17-59) U/L Troponin I <0.012 (0.000-0.034) ng/mL Coagulation 08/24/19 Range/Units 04:45 PT 9.7 (9.0-12.0) sec APTT 21.8 L (22.0-30.0) sec CBC 08/24/19 Range/Units 04:45 WBC 10.6 (3.8-10.6) k/uL RBC 3.97 L (4.30-5.90) m/uL Hgb 11.6 L (13.0-17.5) gm/dL Hct 35.1 L (39.0-53.0) % Plt Count 164 (150-450) k/uL Comprehensive Metabolic Panel 08/24/19 Range/Units 04:45 Sodium 143 (137-145) mmol/L Potassium 3.8 (3.5-5.1) mmol/L Chloride 105 (98-107) mmol/L Carbon Dioxide 29 (22-30) mmol/L BUN 32 H (9-20) mg/dL Creatinine 2.05 H (0.66-1.25) mg/dL Glucose 183 H (74-99) mg/dL Calcium 8.6 (8.4-10.2) mg/dL AST 45 (17-59) U/L ALT 45 (21-72) U/L Alkaline Phosphatase 71 (38-126) U/L Total Protein 6.1 L (6.3-8.2) g/dL Albumin 3.5 (3.5-5.0) g/dL Current Medications Generic Name Dose Route Start Last Admin Trade Name Freq PRN Reason Stop Dose Admin Albuterol Sulfate 2.5 mg 08/24/19 08:00 08/24/19 08:07 Ventolin Nebulized INHALATION Not Given RT-QID [facility] Amlodipine Besylate 10 mg 08/24/19 09:00 08/24/19 09:11 Norvasc PO 10 mg DAILY JN Administration Aspirin 325 mg 08/25/19 09:00 Aspirin PO DAILY [facility] Atenolol 25 mg 08/24/19 09:00 08/24/19 09:11 Tenormin PO 25 mg DAILY JN Administration Atorvastatin Calcium 40 mg 08/24/19 21:00 Lipitor PO HS JN Bupropion HCl 300 mg 08/24/19 09:00 08/24/19 09:11 Wellbutrin Xl PO 300 mg DAILY [facility] Administration Clonazepam 1 mg 08/24/19 09:00 08/24/19 09:11 Klonopin PO 1 mg BID JN Administration Cyclobenzaprine HCl 10 mg 08/24/19 21:00 Flexeril PO HS [facility] Escitalopram Oxalate 10 mg 08/24/19 21:00 Lexapro PO HS JN Furosemide 40 mg 08/24/19 21:00 Lasix PO HS JN Nitroglycerin/Dextrose 50 mg/ 250 mls @ 6 mls/hr 08/24/19 04:28 08/24/19 04:42 IV Solution IV 08/25/19 04:27 20 mcg/min .Q24H STA 6 mls/hr Administration Protocol 20 MCG/MIN Sodium Chloride 10 ml 08/24/19 09:00 08/24/19 09:13 Saline Flush IV 10 ml BID JN Administration Tamsulosin HCl 0.8 mg 08/24/19 21:00 Flomax PO HS [facility] Intake and Output 08/23/19 08/24/19 08/24/19 22:59 06:59 14:59 Other: Weight 74.843 kg 08/24/19 04:45 08/24/19 04:45 EKG Interpretations (text) Sinus rhythm and sinus tachycardia Assessment and Plan (1) Diabetes mellitus Current Visit: Yes Status: Acute Code(s): E11.9 - TYPE 2 DIABETES MELLITUS WITHOUT COMPLICATIONS SNOMED Code(s): 25385822 (2) CHF (congestive heart failure) Current Visit: Yes Status: Acute Code(s): I50.9 - HEART FAILURE, UNSPECIFIED SNOMED Code(s): 25712154 (3) Hypertensive emergency Current Visit: Yes Status: Acute Code(s): I16.1 - HYPERTENSIVE EMERGENCY SNOMED Code(s): 337868496878150 (4) Chronic renal failure Current Visit: Yes Status: Acute Code(s): N18.9 - CHRONIC KIDNEY DISEASE, UNSPECIFIED SNOMED Code(s): 99747716 (5) Hypercholesterolemia Current Visit: Yes Status: Acute Code(s): E78.00 - PURE HYPERCHOLESTEROLEMIA, UNSPECIFIED SNOMED Code(s): 80554258 Plan: I'll give him a dose of IV Lasix and adjust the dose of the diuretics as per nephrology. I will also had a hydralazine and oral nitrates. We'll get an echocardiogram. Further recommendation will depend upon the clinical course
[2019-08-24 09:59] VITALS: BMI 30.2
[2019-08-24] MEDS: hydrALAZINE HCL 50 MG TAB PO SCH ×2 (10:45→20:25)
--- NOTE | 2019-08-24 11:59 | P.CNPUL ---
History of Present Illness Consult date: 08/24/19 Requesting physician: Jean Claude Harris Reason for consult: other (Congestive heart failure) Chief complaint: Shortness of breath and lower extremity swelling. History of present illness: This is a 74-year-old white male, known history of hypertension, diabetes, hypercholesterolemia ,COPD, patient presented to the ER last night with mostly acute onset of dyspnea. Patient was going to the bathroom, and he noted extreme dyspnea with just walking to the bathroom. He felt minimal chest tightness, no chest pain, no radiation of any chest pain. patient had some coughing, no wheezing, and he noted the sputum was mostly clear. Patient had no nausea no vomiting no abdominal pain. He had no previous history of congestive heart failure, patient noted significant swelling in his lower extremities as well as shortness of breath on presentation. Chest x-ray showed mostly some mild interstitial edema. His BNP level was elevated. Blood pressure was extremely high in the 200 range systolic, and his creatinine was elevated at 2.0. Patient was placed on IV nitroglycerin. Admitted and he was given earlier this morning at dose of Lasix. Significant improvement since admission. Patient is feeling much better by the time I saw him this morning around 9:30 AM. Patient is supposedly compliant with all his cardiac meds including beta blockers and calcium channel blockers. And he is also on diuretics. Looking at his previous history, patient was recently admitted about a month ago to [facility], and he was evaluated at the time for acute kidney injury, hypertension, hypotensive episode, and sinus tachycardia. Patient was diagnosed mostly with dehydration. Labs on this admission showed slightly elevated troponin, and seems to be rising, it also showed elevated BNP level, relatively normal CBC, normal electrolytes, BUN is 32 creatinine is 2.05, and his baseline creatinine a month ago was 1.53. Review of Systems Constitutional: Denies fever chills or weight loss. Respiratory: Cough, shortness of breath, no wheezing, denies any true chest pain. Cardiovascular: As noted in HPI. Gastrointestinal: Denies nausea vomiting abdominal pain melena or hematemesis. Musculoskeletal: Denies any aches or pains. Skin: Denies: rash Neurological: Denies headaches no blurred vision or dizziness. Endocrine: Denies any heat or cold intolerance. No history of diabetes. Psychiatric: Denies any symptoms of depression. Hematologic: Denies any clotting bleeding or bruising. Past Medical History Past Medical History: Cancer, Diabetes Mellitus, GERD/Reflux, Hyperlipidemia, Hypertension, Skin Disorder Additional Past Medical History / Comment(s): enlarged prostate, skin cancer, agent orange History of Any Multi-Drug Resistant Organisms: None Reported Past Surgical History: Back Surgery Additional Past Surgical History / Comment(s): left first and second finger amputation, titanium screws in back Past Anesthesia/Blood Transfusion Reactions: No Reported Reaction Smoking Status: Current every day smoker - Past Family History Brother(s) Family Medical History: Cancer Mother Family Medical History: Diabetes Mellitus, Renal Disease Medications and Allergies Home Medications Medication Instructions Recorded Confirmed Type Tamsulosin [Flomax] 0.8 mg PO HS 04/27/14 08/24/19 History amLODIPine BESYLATE [Norvasc] 10 mg PO DAILY 04/27/14 08/24/19 History clonazePAM [KlonoPIN] 1 mg PO BID 04/27/14 08/24/19 History metFORMIN HCL 1,000 mg PO BID 04/27/14 08/24/19 History Atorvastatin [Lipitor] 40 mg PO HS 10/18/18 08/24/19 History buPROPion XL [Wellbutrin XL] 300 mg PO DAILY #7 tab.er.24h 10/18/18 08/24/19 Rx Glimepiride [Amaryl] 2 mg PO BID 10/23/18 08/24/19 History Aspirin EC [Ecotrin Low Dose] 81 mg PO DAILY 06/03/19 08/24/19 History Cyclobenzaprine [Flexeril] 10 mg PO HS 06/03/19 08/24/19 History Escitalopram Oxalate [Lexapro] 10 mg PO HS 06/03/19 08/24/19 History Furosemide [Lasix] 40 mg PO HS 06/03/19 08/24/19 History Atenolol [Tenormin] 25 mg PO DAILY #30 tab 07/18/19 08/24/19 Rx Benazepril HCl 40 mg PO DAILY 08/24/19 08/24/19 History Allergies Allergy/AdvReac Type Severity Reaction Status Date / Time codeine Allergy Rash/Hives Verified 08/24/19 09:05 Physical Exam Vitals: Vital Signs Temp Pulse Resp BP Pulse Ox 08/24/19 11:00 68 15 151/83 97 08/24/19 10:56 67 08/24/19 10:49 68 08/24/19 10:45 70 16 167/95 95 08/24/19 10:30 75 16 167/105 95 08/24/19 10:15 76 13 161/103 96 08/24/19 10:00 86 16 115/91 95 08/24/19 09:45 86 14 173/93 95 08/24/19 09:30 85 14 148/88 96 08/24/19 09:15 97.8 F 85 12 164/94 96 08/24/19 09:09 97.8 F 14 95 08/24/19 08:31 87 18 159/92 100 08/24/19 07:25 93 18 159/96 99 08/24/19 06:00 103 H 16 139/94 99 08/24/19 04:52 108 H 16 146/97 99 08/24/19 04:50 109 H 16 140/96 99 08/24/19 04:42 110 H 19 160/106 99 08/24/19 04:38 108 H 18 170/100 99 08/24/19 04:32 169/103 99 08/24/19 04:26 180/111 99 08/24/19 04:24 198/127 99 08/24/19 04:20 235/146 100 08/24/19 04:18 251/165 99 08/24/19 04:14 97.1 F L 134 H 40 H 251/165 81 L 08/24/19 04:13 97 08/24/19 04:10 40 H Intake and Output 08/23/19 08/24/19 08/24/19 22:59 06:59 14:59 Intake Total 60 Output Total 275 Balance -215 Intake: IV 60 0.9 60 Output: Urine 275 Other: Voiding Method Urinal Weight 74.843 kg 74.843 kg General appearance: Revealed 74-year-old white male in no distress, very pleasant. Head exam: Atraumatic, normocephalic Eye exam: PERRLA, EOMI, no icterus. Neck exam: No neck masses no JVD no thyromegaly no stridor. Respiratory exam: Minimal fine crackles at the bases no rhonchi no wheezes, symmetrical chest expansion. No chest wall tenderness. Cardiovascular Exam: Normal S1 and S2, no S3 gallop. 2/6 systolic murmur thought the precordium. GI/Abdominal exam: Flat soft nontender no megaly no rebound no guarding. Extremities exam: Trace of bipedal edema, no calf tenderness. Good pulses bilaterally. Back exam: Relatively unremarkable, no tenderness Neurological exam: Alert and oriented 3, no gross focal neurologic deficits. Skin exam: No rashes. No evidence of erythema or cellulitis Results - Laboratory Findings CBC and BMP: 08/24/19 04:45 08/24/19 04:45 PT/INR, D-dimer PT 9.7 sec (9.0-12.0) 08/24/19 04:45 INR 0.9 (<1.2) 08/24/19 04:45 Abnormal lab findings: Abnormal Labs 08/24/19 08/24/19 08/24/19 04:45 04:45 04:45 RBC 3.97 L Hgb 11.6 L Hct 35.1 L Neutrophils # 8.2 H APTT 21.8 L BUN 32 H Creatinine 2.05 H Glucose 183 H POC Glucose (mg/dL) Troponin I Total Protein 6.1 L 08/24/19 08/24/19 09:00 10:38 RBC Hgb Hct Neutrophils # APTT BUN Creatinine Glucose POC Glucose (mg/dL) 164 H Troponin I 0.086 H* Total Protein - Diagnostic Findings Chest x-ray: image reviewed (Mild interstitial edema is noted. Consistent with mild CHF) Assessment and Plan Assessment: Impression: 1 acute pulmonary edema secondary to hypertensive emergency. 2 hypertensive emergency, patient is now on nitroglycerin drip, and he was placed back on his blood pressure medications including amlodipine and beta blockers. 3 type 2 diabetes. 4 chronic renal failure stage 2 5 acute on chronic kidney injury secondary to hypertensive emergency. 6. Hypercholesterolemia 7 possible underlying coronary artery disease, being addressed by cardiology, patient did have positive troponins on admission. 8 history of depression, presently under control with Lexapro, and Wellbutrin. 9 suspect some component of underlying COPD severity of which is not clear, patient has been a smoker over the years, and he continues to smoke, is at least a [id number] smoker. Presently smokes few cigarettes per day. Recommendation: Continue present meds as listed, continue blood pressure medication, continue diuretics, continue bronchodilators, continue to monitor in the ICU he is presently on nitroglycerin drip, and will follow closely. Patient was seen by cardiology, echocardiogram is pending, and may require further cardiac intervention. Patient has shown a significant improvement since admission. And that's mostly because of better control of his blood pressure. We'll continue to follow. Time with Patient: Greater than 30
[2019-08-24 12:08] LABS: Glucose,Whole Blood 145 mg/dL (75-99)
--- NOTE | 2019-08-24 14:16 | P.HPIM ---
History of Present Illness 72-year-old male gentleman came in with complaints of shortness of breath sounds on to have pulmonary edema with highly elevated blood pressure the patient did have mild chest discomfort mostly in the epigastric area pressure-like se nsation. Patient was troponin is negative there are nonspecific ST-T wave changes in the EKG and second troponin is minimally elevated cardiology was consulted patient was treated for hypertensive emergency patient was on IV nitroglycerin which is presently discontinued patient blood pressure is within normal limits patient received amlodipine and hydralazine along with atenolol all of which she received today and patient is being continued on these medications. Patient's serum creatinine is elevated to 2. Baseline creatinine area appears to be around 1.1 although for last 6-7 months it has been 1.5. Patient is on IV Lasix at this time. Because of pulmonary edema, echocardiogram is being obtained. Review of Systems REVIEW OF SYSTEMS: CONSTITUTIONAL: No fever, no malaise, no fatigue. HEENT: No recent visual problems or hearing problems. Denied any sore throat. CARDIOVASCULAR: no palpitations, no syncope. PULMONARY no cough, no hemoptysis. GASTROINTESTINAL: No diarrhea, no nausea, no vomiting, no abdominal pain. NEUROLOGICAL: No headaches, no weakness, no numbness. HEMATOLOGICAL: Denies any bleeding or petechiae. GENITOURINARY: Denies any burning micturition, frequency, or urgency. MUSCULOSKELETAL/RHEUMATOLOGICAL: Denies any joint pain, swelling, or any muscle pain. ENDOCRINE: Denies any polyuria or polydipsia. The rest of the 14-point review of systems is negative. Past Medical History Past Medical History: Cancer, Diabetes Mellitus, GERD/Reflux, Hyperlipidemia, Hypertension, Skin Disorder Additional Past Medical History / Comment(s): enlarged prostate, skin cancer, agent orange History of Any Multi-Drug Resistant Organisms: None Reported Past Surgical History: Back Surgery Additional Past Surgical History / Comment(s): left first and second finger amputation, titanium screws in back Past Anesthesia/Blood Transfusion Reactions: No Reported Reaction Smoking Status: Current every day smoker - Past Family History Brother(s) Family Medical History: Cancer Mother Family Medical History: Diabetes Mellitus, Renal Disease Medications and Allergies Home Medications Medication Instructions Recorded Confirmed Type Tamsulosin [Flomax] 0.8 mg PO HS 04/27/14 08/24/19 History amLODIPine BESYLATE [Norvasc] 10 mg PO DAILY 04/27/14 08/24/19 History clonazePAM [KlonoPIN] 1 mg PO BID 04/27/14 08/24/19 History metFORMIN HCL 1,000 mg PO BID 04/27/14 08/24/19 History Atorvastatin [Lipitor] 40 mg PO HS 10/18/18 08/24/19 History buPROPion XL [Wellbutrin XL] 300 mg PO DAILY #7 tab.er.24h 10/18/18 08/24/19 Rx Glimepiride [Amaryl] 2 mg PO BID 10/23/18 08/24/19 History Aspirin EC [Ecotrin Low Dose] 81 mg PO DAILY 06/03/19 08/24/19 History Cyclobenzaprine [Flexeril] 10 mg PO HS 06/03/19 08/24/19 History Escitalopram Oxalate [Lexapro] 10 mg PO HS 06/03/19 08/24/19 History Furosemide [Lasix] 40 mg PO HS 06/03/19 08/24/19 History Atenolol [Tenormin] 25 mg PO DAILY #30 tab 07/18/19 08/24/19 Rx Benazepril HCl 40 mg PO DAILY 08/24/19 08/24/19 History Allergies Allergy/AdvReac Type Severity Reaction Status Date / Time codeine Allergy Rash/Hives Verified 08/24/19 09:05 Physical Exam Vitals: Vital Signs Temp Pulse Resp BP Pulse Ox 08/24/19 14:00 79 16 140/80 95 08/24/19 13:30 80 29 H 150/79 96 08/24/19 13:00 75 21 147/80 96 08/24/19 12:30 79 22 142/89 95 08/24/19 12:00 97.9 F 75 22 128/74 97 08/24/19 11:30 70 16 138/78 96 08/24/19 11:00 68 15 151/83 97 08/24/19 10:56 67 08/24/19 10:49 68 08/24/19 10:45 70 16 167/95 95 08/24/19 10:30 75 16 167/105 95 08/24/19 10:15 76 13 161/103 96 08/24/19 10:00 86 16 115/91 95 08/24/19 09:45 86 14 173/93 95 08/24/19 09:30 85 14 148/88 96 08/24/19 09:15 97.8 F 85 12 164/94 96 08/24/19 09:09 97.8 F 14 95 08/24/19 08:31 87 18 159/92 100 08/24/19 07:25 93 18 159/96 99 08/24/19 06:00 103 H 16 139/94 99 08/24/19 04:52 108 H 16 146/97 99 08/24/19 04:50 109 H 16 140/96 99 08/24/19 04:42 110 H 19 160/106 99 08/24/19 04:38 108 H 18 170/100 99 08/24/19 04:32 169/103 99 08/24/19 04:26 180/111 99 08/24/19 04:24 198/127 99 08/24/19 04:20 235/146 100 08/24/19 04:18 251/165 99 08/24/19 04:14 97.1 F L 134 H 40 H 251/165 81 L 08/24/19 04:13 97 08/24/19 04:10 40 H Intake and Output 08/23/19 08/24/19 08/24/19 22:59 06:59 14:59 Intake Total 120 Output Total 575 Balance -455 Intake: IV 120 0.9 120 Output: Urine 575 Other: Voiding Method Urinal Weight 74.843 kg 74.843 kg PHYSICAL EXAMINATION: GENERAL: The patient is alert and oriented x3, not in any acute distress. Well developed, well nourished. HEENT: Pupils are round and equally reacting to light. EOMI. No scleral icterus. No conjunctival pallor. Normocephalic, atraumatic. No pharyngeal erythema. No thyromegaly. CARDIOVASCULAR: S1 and S2 present. No murmurs, rubs, or gallops. PULMONARY: Bibasilar crackles were appreciated no wheezing was appreciated. ABDOMEN: Soft, nontender, nondistended, normoactive bowel sounds. No palpable organomegaly. MUSCULOSKELETAL: No joint swelling or deformity. EXTREMITIES: No cyanosis, clubbing, or pedal edema. NEUROLOGICAL: Gross neurological examination did not reveal any focal deficits. SKIN: No rashes. Results CBC & Chem 7: 08/24/19 04:45 08/24/19 04:45 Labs: Abnormal Lab Results - Last 24 Hours (Table) 08/24/19 08/24/19 08/24/19 Range/Units 04:45 04:45 04:45 RBC 3.97 L (4.30-5.90) m/uL Hgb 11.6 L (13.0-17.5) gm/dL Hct 35.1 L (39.0-53.0) % Neutrophils # 8.2 H (1.3-7.7) k/uL APTT 21.8 L (22.0-30.0) sec BUN 32 H (9-20) mg/dL Creatinine 2.05 H (0.66-1.25) mg/dL Glucose 183 H (74-99) mg/dL POC Glucose (mg/dL) (75-99) mg/dL Troponin I (0.000-0.034) ng/mL Total Protein 6.1 L (6.3-8.2) g/dL 08/24/19 08/24/19 08/24/19 Range/Units 09:00 10:38 11:57 RBC (4.30-5.90) m/uL Hgb (13.0-17.5) gm/dL Hct (39.0-53.0) % Neutrophils # (1.3-7.7) k/uL APTT (22.0-30.0) sec BUN (9-20) mg/dL Creatinine (0.66-1.25) mg/dL Glucose (74-99) mg/dL POC Glucose (mg/dL) 164 H 145 H (75-99) mg/dL Troponin I 0.086 H* (0.000-0.034) ng/mL Total Protein (6.3-8.2) g/dL Thrombosis Risk Factor Assmnt - Choose All That Apply Each Factor Represents 1 point: Heart failure (<1month), Medical pt on bed rest Each Risk Factor Represents 3 Points: Age 75 years or older Other congenital or acquired thrombophilia - If yes, enter type in comment: No Thrombosis Risk Factor Assessment Total Risk Factor Score: 5 Thrombosis Risk Factor Assessment Level: High Risk Assessment and Plan Plan: Hypertensive emergency: Improved patient is off IV nitroglycerin patient will be continued on atenolol amlodipine and hydralazine for now. Patient will benefit from GRIS inhibitor down the line once his creatinine improves. -Acute renal failure probably secondary to hypertensive emergency and with a competent of prerenal azotemia. Expected to improve with improvement of blood pressure. -Acute pulmonary edema, secondary to hypertensive emergency, continue IV Lasix. -Elevated troponin probably secondary to hypertensive emergency will repeat and the troponin cardiology is following the patient -Type 2 diabetes mellitus metformin and the sulfonylureas will be held because of acute renal failure patient will be continued on sliding scale insulin -Hyperlipidemia -Depression.
[2019-08-24] MEDS: INSULIN ASPART (NovoLOG) 100 UNIT/ML VIAL SQ SCH ×3 (16:07→20:20)
[2019-08-24 16:57] LABS: Glucose,Whole Blood 158 mg/dL (75-99)
[2019-08-24] MEDS: TAMSULOSIN 0.4 MG CAP.ER.24H PO SCH (20:25)
[2019-08-24] MEDS: ESCITALOPRAM 10 MG TAB PO SCH (20:25)
[2019-08-24] MEDS: ATORVASTATIN 40 MG TAB PO SCH (20:25)
[2019-08-24] MEDS: FUROSEMIDE 40 MG TAB PO SCH (20:26)
[2019-08-24 20:31] LABS: Glucose,Whole Blood 116 mg/dL (75-99)
[2019-08-24] MEDS ORDERED: CYCLOBENZAPRINE 10 MG TAB PO SCH (21:00)
[2019-08-25 04:34] LABS: Basophils % (A) 0 %; Eosinophils # (A) 0.1 k/uL (0-0.7); Eosinophils % (A) 1 %; HCT 36.7 % (39.0-53.0); HGB 11.9 gm/dL (13.0-17.5); Lymphocytes # (A) 1.3 k/uL (1.0-4.8); Lymphocytes % (A) 13 %; MCH 28.9 pg (25.0-35.0); MCHC 32.5 g/dL (31.0-37.0); MCV 88.9 fL (80.0-100.0); Mean Platelet Volume 6.9; Monocytes # (A) 0.5 k/uL (0-1.0); Monocytes % (A) 6 %; Neutrophils # (A) 7.5 k/uL (1.3-7.7); Neutrophils % (A) 78 %; Platelet Count 157 k/uL (150-450); RBC 4.13 m/uL (4.30-5.90); RDW 13.3 % (11.5-15.5); WBC 9.6 k/uL (3.8-10.6)
[2019-08-25 04:45] LABS: Calcium 8.8 mg/dL (8.4-10.2); Potassium 3.2 mmol/L (3.5-5.1)
[2019-08-25] MEDS ORDERED: Potassium Replacement Protocol 1 EACH MISC MISCELLANE PRN (05:12)
[2019-08-25] MEDS: POTASSIUM CHLORIDE ER 20 MEQ TAB.ER PO SCH ×2 (05:53→06:56)
[2019-08-25] MEDS: INSULIN ASPART (NovoLOG) 100 UNIT/ML VIAL SQ SCH ×4 (06:56→20:43)
[2019-08-25 07:03] LABS: Glucose,Whole Blood 161 mg/dL (75-99)
[2019-08-25] MEDS: buPROPion XL 300 MG TAB.ER.24H PO SCH (07:31)
[2019-08-25] MEDS: amLODIPine 10 MG TAB PO SCH (07:31)
[2019-08-25] MEDS: ATENOLOL 25 MG TAB PO SCH (07:31)
[2019-08-25] MEDS: ISOSORBIDE MONONITRATE ER 30 MG TAB.ER.24H PO SCH (07:31)
[2019-08-25] MEDS: ASPIRIN 325 MG TAB PO SCH (07:31)
[2019-08-25] MEDS: clonazePAM 1 MG TAB PO SCH ×2 (07:31→20:44)
[2019-08-25] MEDS: hydrALAZINE HCL 50 MG TAB PO SCH ×2 (07:31→20:43)
[2019-08-25] MEDS: ALBUTEROL NEBULIZED 2.5 MG/3 ML INHALATION SCH ×4 (07:39→19:47)
[2019-08-25] MEDS ORDERED: ATENOLOL 25 MG TAB PO STA (08:39)
[2019-08-25] MEDS: cloNIDine HCL 0.2 MG TAB PO SCH ×3 (09:01→22:00)
--- NOTE | 2019-08-25 09:21 | P.PN ---
Subjective Progress Note Date: 08/25/19 Principal diagnosis: Severe uncontrolled hypertension Patient looks better clinically. Blood pressure remains poorly controlled. Her shortness of breath has resolved patient is currently on Norvasc 10 mg daily Tenormin 25 mg daily and hydralazine along with imdur. Patient's blood pressure is in is 180/90. I'm going to start the patient on Catapres 0.2 3 times a day. I will increase the dose of atenolol to 50 mg daily. I will review the echocardiogram once the results are available Objective - Vital Signs Vital signs: Vital Signs Temp 97.8 F 08/25/19 08:00 Pulse 95 08/25/19 09:00 Resp 21 08/25/19 09:00 BP 166/106 08/25/19 09:00 Pulse Ox 93 L 08/25/19 09:00 Intake & Output 08/24/19 08/25/19 08/25/19 18:59 06:59 18:59 Intake Total 447.8 450 720 Output Total 900 2250 0 Balance -452.2 -1800 720 Weight 74.843 kg 78.9 kg Intake: IV 160 0.9 160 Intake, IV Titration 37.8 Amount Nitroglycerin-D5w Pmx 50 37.8 mg In Dextrose/Water 1 250ml.bag @ 20 MCG/MIN 6 mls/hr IV .Q24H STA Rx#: [id number] Oral 250 450 720 Output: Urine 900 2250 0 Other: Voiding Method Urinal Urinal # Voids 1 # Bowel Movements 1 - Exam General: The patient is awake and alert, in no distress, and does not appear acutely ill. Skin: Skin is warm and dry and no rashes or lesions are noted. Eye: Pupils are equal, round and reactive to light, extra-ocular movements are intact; there is normal conjunctiva bilaterally. Ears, nose, mouth and throat: There are moist mucous membranes and no oral lesions. Neck: The neck is supple, there is no tenderness or JVD. Cardiovascular: There is a regular rate and rhythm. No murmur, rub or gallop is appreciated. Respiratory: Lungs are clear to auscultation, respirations are non-labored, breath sounds are equal. Gastrointestinal: Soft, non-distended, non-tender abdomen without masses or organomegaly noted. There is no rebound or guarding present. Bowel sounds are unremarkable. Back: There is no tenderness to palpation in the midline. There is no obvious deformity. Musculoskeletal: Normal ROM, no tenderness, There is no pedal edema. There is no calf tenderness or swelling. Extremities: 1+ edema Vascular: Femoral pulse is normal. Posterior tibial pulses are normal .Dorsalis pedis is palpable. Neurological: CN II-XII intact. There are no obvious motor or sensory deficits. Speech is normal. Psychiatric: Cooperative, appropriate mood & affect, normal judgment. - Labs CBC & Chem 7: 08/25/19 04:03 08/25/19 04:03 Labs: Abnormal Lab Results - Last 24 Hours (Table) 08/24/19 08/24/19 08/24/19 Range/Units 10:38 11:57 16:15 RBC (4.30-5.90) m/uL Hgb (13.0-17.5) gm/dL Hct (39.0-53.0) % Potassium (3.5-5.1) mmol/L BUN (9-20) mg/dL Creatinine (0.66-1.25) mg/dL Glucose (74-99) mg/dL POC Glucose (mg/dL) 145 H (75-99) mg/dL Troponin I 0.086 H* 0.072 H* (0.000-0.034) ng/mL 08/24/19 08/24/19 08/25/19 Range/Units 16:46 20:19 04:03 RBC 4.13 L (4.30-5.90) m/uL Hgb 11.9 L (13.0-17.5) gm/dL Hct 36.7 L (39.0-53.0) % Potassium (3.5-5.1) mmol/L BUN (9-20) mg/dL Creatinine (0.66-1.25) mg/dL Glucose (74-99) mg/dL POC Glucose (mg/dL) 158 H 116 H (75-99) mg/dL Troponin I (0.000-0.034) ng/mL 08/25/19 08/25/19 Range/Units 04:03 06:51 RBC (4.30-5.90) m/uL Hgb (13.0-17.5) gm/dL Hct (39.0-53.0) % Potassium 3.2 L (3.5-5.1) mmol/L BUN 28 H (9-20) mg/dL Creatinine 1.73 H (0.66-1.25) mg/dL Glucose 152 H (74-99) mg/dL POC Glucose (mg/dL) 161 H (75-99) mg/dL Troponin I (0.000-0.034) ng/mL Assessment and Plan Plan: Severe uncontrolled hypertension Acute onset congestive heart failure probably diastolic Chronic renal failure I reviewed the labs hemoglobin is 11.9 potassium is low at 3.2 creatinine is 1.7 troponin is mildly elevated probably related to renal failure And starting the patient on Catapres 0.2 3 times a day increase the dose of Tenormin to 50 mg daily continue the amlodipine and the hydralazine.
--- NOTE | 2019-08-25 09:45 | P.PN ---
Subjective Progress Note Date: 08/25/19 Principal diagnosis: Shortness of breath, and lower extremity swelling This is a 74-year-old white male, known history of hypertension, diabetes, hypercholesterolemia ,COPD, patient presented to the ER last night with mostly acute onset of dyspnea. Patient was going to the bathroom, and he noted extreme dyspnea with just walking to the bathroom. He felt minimal chest tightness, no chest pain, no radiation of any chest pain. patient had some coughing, no wheezing, and he noted the sputum was mostly clear. Patient had no nausea no vomiting no abdominal pain. He had no previous history of congestive heart failure, patient noted significant swelling in his lower extremities as well as shortness of breath on presentation. Chest x-ray showed mostly some mild interstitial edema. His BNP level was elevated. Blood pressure was extremely high in the 200 range systolic, and his creatinine was elevated at 2.0. Patient was placed on IV nitroglycerin. Admitted and he was given earlier this morning at dose of Lasix. Significant improvement since admission. Patient is feeling much better by the time I saw him this morning around 9:30 AM. Patient is supposedly compliant with all his cardiac meds including beta blockers and calcium channel blockers. And he is also on diuretics. Looking at his previous history, patient was recently admitted about a month ago to [facility], and he was evaluated at the time for acute kidney injury, hypertensio n, hypotensive episode, and sinus tachycardia. Patient was diagnosed mostly with dehydration. Labs on this admission showed slightly elevated troponin, and seems to be rising, it also showed elevated BNP level, relatively normal CBC, normal electrolytes, BUN is 32 creatinine is 2.05, and his baseline creatinine a month ago was 1.53. On 08/17/2019 patient seen in follow-up in the intensive care unit, he is awake and alert, oriented 3, in no acute distress, he is on room air with pulse ox of 93%, this morning his blood pressure is 166/106, his been off the nitroglycerin drip, blood pressure is better controlled, although patient does remain hypertensive, cardiology is on the case and has been managing the blood pressure medications, Paul has been admitted this morning, no complaint of chest pain, no complaints of shortness of breath, afebrile, patient is on oral Lasix at bedtime, and he was given an additional dose of IV Lasix yesterday, he is in -2252 mL or last 24 hours. Mild lower extremity edema, lung sounds reveal clear breath sounds, otherwise no acute distress. Sinus tach on the monitor with a rate of 101 BPM. Objective - Vital Signs Vital signs: Vital Signs Temp 97.8 F 08/25/19 08:00 Pulse 95 08/25/19 09:00 Resp 21 08/25/19 09:00 BP 166/106 08/25/19 09:00 Pulse Ox 93 L 08/25/19 09:00 Intake & Output 08/24/19 08/25/19 08/25/19 18:59 06:59 18:59 Intake Total 447.8 450 720 Output Total 900 2250 0 Balance -452.2 -1800 720 Weight 74.843 kg 78.9 kg Intake: IV 160 0.9 160 Intake, IV Titration 37.8 Amount Nitroglycerin-D5w Pmx 50 37.8 mg In Dextrose/Water 1 250ml.bag @ 20 MCG/MIN 6 mls/hr IV .Q24H STA Rx#: [id number] Oral 250 450 720 Output: Urine 900 2250 0 Other: Voiding Method Urinal Urinal # Voids 1 # Bowel Movements 1 - Exam GENERAL EXAM: Alert, pleasant, 74-year-old white male, on room air, with a pulse ox of 93% comfortable in no apparent distress. HEAD: Normocephalic/atraumatic. EYES: Normal reaction of pupils, equal size. Conjunctiva pink, sclera white. NOSE: Clear with pink turbinates. THROAT: No erythema or exudates. NECK: No masses, no JVD, no thyroid enlargement, no adenopathy. CHEST: No chest wall deformity. Symmetrical expansion. LUNGS: Equal air entry with no crackles, wheeze, rhonchi or dullness. CVS: Regular rate and rhythm, normal S1 and S2, no gallops, no murmurs, no rubs ABDOMEN: Soft, nontender. No hepatosplenomegaly, normal bowel sounds, no guarding or rigidity. EXTREMITIES: No clubbing, mild pretibial edema, no cyanosis, 2+ pulses and upper and lower extremities. MUSCULOSKELETAL: Muscle strength and tone normal. SPINE: No scoliosis or deformity SKIN: No rashes CENTRAL NERVOUS SYSTEM: Alert and oriented -3. No focal deficits, tone is normal in all 4 extremities. PSYCHIATRIC: Alert and oriented -3. Appropriate affect. Intact judgment and insight. - Labs CBC & Chem 7: 08/25/19 04:03 08/25/19 04:03 Labs: Abnormal Lab Results - Last 24 Hours (Table) 08/24/19 08/24/19 08/24/19 Range/Units 10:38 11:57 16:15 RBC (4.30-5.90) m/uL Hgb (13.0-17.5) gm/dL Hct (39.0-53.0) % Potassium (3.5-5.1) mmol/L BUN (9-20) mg/dL Creatinine (0.66-1.25) mg/dL Glucose (74-99) mg/dL POC Glucose (mg/dL) 145 H (75-99) mg/dL Troponin I 0.086 H* 0.072 H* (0.000-0.034) ng/mL 08/24/19 08/24/19 08/25/19 Range/Units 16:46 20:19 04:03 RBC 4.13 L (4.30-5.90) m/uL Hgb 11.9 L (13.0-17.5) gm/dL Hct 36.7 L (39.0-53.0) % Potassium (3.5-5.1) mmol/L BUN (9-20) mg/dL Creatinine (0.66-1.25) mg/dL Glucose (74-99) mg/dL POC Glucose (mg/dL) 158 H 116 H (75-99) mg/dL Troponin I (0.000-0.034) ng/mL 08/25/19 08/25/19 Range/Units 04:03 06:51 RBC (4.30-5.90) m/uL Hgb (13.0-17.5) gm/dL Hct (39.0-53.0) % Potassium 3.2 L (3.5-5.1) mmol/L BUN 28 H (9-20) mg/dL Creatinine 1.73 H (0.66-1.25) mg/dL Glucose 152 H (74-99) mg/dL POC Glucose (mg/dL) 161 H (75-99) mg/dL Troponin I (0.000-0.034) ng/mL Assessment and Plan Plan: Assessment: 1 acute pulmonary edema secondary to hypertensive emergency. 2 hypertensive emergency, patient is now off nitroglycerin drip, and he was placed back on his blood pressure medications including amlodipine and beta blockers. 3 type 2 diabetes. 4 chronic renal failure stage 2 5 acute on chronic kidney injury secondary to hypertensive emergency. 6. Hypercholesterolemia 7 possible underlying coronary artery disease, being addressed by cardiology, patient did have positive troponins on admission. 8 history of depression, presently under control with Lexapro, and Wellbutrin. 9 suspect some component of underlying COPD severity of which is not clear, patient has been a smoker over the years, and he continues to smoke, is at least a [id number] smoker. Presently smokes few cigarettes per day. Plan: No acute complaints, remains hypertensive although blood pressure is better controlled, cardiology is following and managing blood pressure medications, Catapres has been added to the beta blockers, amlodipine. Nitroglycerin drip has been weaned off, continue with oral dose Lasix patient is maintaining negative fluid balance, denies any shortness of breath or chest pain. Echocardiogram has been taken and the results are pending. From pulmonary perspective his breathing is stable, patient can be downgraded to abdominal josé antonio or today. Repeat chest x-ray tomorrow. We'll continue to follow I performed a history & physical examination of the patient and discussed their management with my nurse practitioner, Valorie Gilbert. I reviewed the nurse practitioner's note and agree with the documented findings and plan of care. Lung sounds are positive for clear breath sounds. The findings and the impression was discussed with the patient. I attest to the documentation by the nurse practitioner. Time with Patient: Less than 30
[2019-08-25] MEDS: CYCLOBENZAPRINE 5 MG TAB PO PRN (10:13)
[2019-08-25 11:50] LABS: Glucose,Whole Blood 154 mg/dL (75-99)
[2019-08-25 12:00] LABS: Glucose,Whole Blood 148 mg/dL (75-99)
--- NOTE | 2019-08-25 12:01 | ECHOF ---
Referral Reason:chf MEASUREMENTS -------- HEIGHT: 157.5 cm WEIGHT: 74.8 kg BP: IVSd: 1.3 cm (0.6 - 1.1) LVIDd: 3.9 cm (3.9 - 5.3) LVPWd: 1.4 cm (0.6 - 1.1) IVSs: 1.9 cm LVIDs: 3.8 cm LVPWs: 1.6 cm LA Diam: 4.3 cm (2.7 - 3.8) LAESV Index (A-L): 37.91 ml/m Ao Diam: 2.8 cm (2.0 - 3.7) AV Cusp: 1.3 cm (1.5 - 2.6) LA Diam: 4.4 cm (2.7 - 3.8) MV EXCURSION: 12.885 mm (> 18.000) MV EF SLOPE: 63 mm/s (70 - 150) EPSS: 0.8 cm MV E Syed: 0.86 m/s MV DecT: 151 ms MV A Syed: 1.01 m/s MV E/A Ratio: 0.85 AR PHT: 304 ms RAP: 5.00 mmHg RVSP: 18.23 mmHg FINDINGS -------- Sinus rhythm. This was a technically good study. The left ventricular size is normal. There is mild concentric left ventricular hypertrophy. Overa ll left ventricular systolic function is normal with, an EF between 55 - 60 %. The right ventricle is normal in size. The left atrium is mildly dilated. LA is midly dilated 29-33ml/m2. The right atrial size is normal. There is mild aortic valve sclerosis. There is mild aortic regurgitation. Mild mitral annular calcification present. Mild mitral regurgitation is present. Mild tricuspid regurgitation present. Right ventricular systolic pressure is normal at < 35 mmHg. There is no evidence of pulmonary hypertension. There is no pulmonic regurgitation present. The aortic root size is normal. There is no pericardial effusion. CONCLUSIONS -------- 1. Sinus rhythm. 2. This was a technically good study. 3. The left ventricular size is normal. 4. There is mild concentric left ventricular hypertrophy. 5. Overall left ventricular systolic function is normal with, an EF between 55 - 60 %. 6. The right ventricle is normal in size. 7. The left atrium is mildly dilated. 8. LA is midly dilated 29-33ml/m2. 9. The right atrial size is normal. 10. There is mild aortic valve sclerosis. 11. Mild mitral annular calcification present. 12. Mild mitral regurgitation is present. 13. Mild tricuspid regurgitation present. 14. Right ventricular systolic pressure is normal at < 35 mmHg. 15. There is no evidence of pulmonary hypertension. 16. There is no pulmonic regurgitation present. 17. The aortic root size is normal. 18. There is no pericardial effusion. CERNER ANALYST: Deanna Gonzalez RDCS
--- NOTE | 2019-08-25 15:46 | P.PN ---
Subjective Progress Note Date: 08/25/19 Systole 4-year-old gentleman admitted with hypertensive emergency, acute CHF exacerbation, chronic renal failure remains off of nitroglycerin drip since yesterday. Hypertensive this morning with systolic blood pressures in the 180s, Catapres added to med regime, beta travon dose increased. Echo reporting normal LV function EF 55-60%. Breathing improved, maintaining O2 sats in the 90s on room air. Renal function improving, creatinine down to 1.73. Objective - Vital Signs Vital signs: Vital Signs Temp 97.8 F 08/25/19 08:00 Pulse 78 08/25/19 11:46 Resp 21 08/25/19 09:00 BP 166/106 08/25/19 09:00 Pulse Ox 93 L 08/25/19 09:00 Intake & Output 08/24/19 08/25/19 08/25/19 18:59 06:59 18:59 Intake Total 447.8 450 720 Output Total 900 2250 0 Balance -452.2 -1800 720 Weight 74.843 kg 78.9 kg Intake: IV 160 0.9 160 Intake, IV Titration 37.8 Amount Nitroglycerin-D5w Pmx 50 37.8 mg In Dextrose/Water 1 250ml.bag @ 20 MCG/MIN 6 mls/hr IV .Q24H STA Rx#: [id number] Oral 250 450 720 Output: Urine 900 2250 0 Other: Voiding Method Urinal Urinal Urinal # Voids 1 # Bowel Movements 1 - Exam GENERAL: The patient is alert and oriented x3, no acute distress. HEENT: Pupils are round and equally reacting to light. EOMI. No scleral icterus. No conjunctival pallor. Normocephalic, atraumatic. No pharyngeal erythema. No thyromegaly. CARDIOVASCULAR: S1 and S2 present. No murmurs, rubs, or gallops. PULMONARY: Nonlabored, essentially clear, no rhonchi, crackles or wheezes.. ABDOMEN: Soft, nontender, nondistended, normoactive bowel sounds. No palpable organomegaly. EXTREMITIES: No cyanosis, clubbing, positive pedal edema. NEUROLOGICAL: Gross neurological examination did not reveal any focal deficits. SKIN: No rashes. - Labs CBC & Chem 7: 08/25/19 04:03 08/25/19 04:03 Labs: Abnormal Lab Results - Last 24 Hours (Table) 08/24/19 08/24/19 08/24/19 Range/Units 16:15 16:46 20:19 RBC (4.30-5.90) m/uL Hgb (13.0-17.5) gm/dL Hct (39.0-53.0) % Potassium (3.5-5.1) mmol/L BUN (9-20) mg/dL Creatinine (0.66-1.25) mg/dL Glucose (74-99) mg/dL POC Glucose (mg/dL) 158 H 116 H (75-99) mg/dL Troponin I 0.072 H* (0.000-0.034) ng/mL 08/25/19 08/25/19 08/25/19 Range/Units 04:03 04:03 06:51 RBC 4.13 L (4.30-5.90) m/uL Hgb 11.9 L (13.0-17.5) gm/dL Hct 36.7 L (39.0-53.0) % Potassium 3.2 L (3.5-5.1) mmol/L BUN 28 H (9-20) mg/dL Creatinine 1.73 H (0.66-1.25) mg/dL Glucose 152 H (74-99) mg/dL POC Glucose (mg/dL) 161 H (75-99) mg/dL Troponin I (0.000-0.034) ng/mL 08/25/19 08/25/19 Range/Units 11:39 11:49 RBC (4.30-5.90) m/uL Hgb (13.0-17.5) gm/dL Hct (39.0-53.0) % Potassium (3.5-5.1) mmol/L BUN (9-20) mg/dL Creatinine (0.66-1.25) mg/dL Glucose (74-99) mg/dL POC Glucose (mg/dL) 154 H 148 H (75-99) mg/dL Troponin I (0.000-0.034) ng/mL Assessment and Plan Assessment: -Hypertensive emergency, status post IV nitroglycerin. -Acute on chronic renal failure stage II, secondary to hypertensive emergency and with a component of prerenal azotemia. -Acute CHF, diastolic dysfunction secondary to pulmonary edema from hypertensive emergency. -Elevated troponin probably secondary to hypertensive emergency, cardiology following -Type 2 diabetes mellitus, metformin and the sulfonylureas will be held because of acute renal failure -Hyperlipidemia -Depression. Plan: Continue on current medication regime ,monitoring and symptomatic treatment. Catapres added to med regime, beta travon increased. Flexeril, home medication, resumed for patient's complaints of back spasms. Cleared by neurosurgeon for transfer out of ICU. Discharge planning in progress for tomorrow. The impression and plan of care has been dictated as directed. : I performed a history and examination of this patient, discussed the same with the dictator. I agree with the dictator's note ,documented as a scribe. Any additional findings or plans will be noted.
[2019-08-25 17:12] LABS: Glucose,Whole Blood 194 mg/dL (75-99)
[2019-08-25] MEDS: FUROSEMIDE 40 MG TAB PO SCH (20:43)
[2019-08-25] MEDS: ATORVASTATIN 40 MG TAB PO SCH (20:44)
[2019-08-25] MEDS: TAMSULOSIN 0.4 MG CAP.ER.24H PO SCH (20:44)
[2019-08-25 20:48] LABS: Glucose,Whole Blood 144 mg/dL (75-99)
[2019-08-25] MEDS: ESCITALOPRAM 10 MG TAB PO SCH (20:50)
[2019-08-26 04:51] LABS: Basophils % (A) 0 %; Eosinophils # (A) 0.1 k/uL (0-0.7); Eosinophils % (A) 2 %; HCT 32.2 % (39.0-53.0); HGB 10.7 gm/dL (13.0-17.5); Lymphocytes # (A) 1.5 k/uL (1.0-4.8); Lymphocytes % (A) 23 %; MCH 29.3 pg (25.0-35.0); MCHC 33.1 g/dL (31.0-37.0); MCV 88.6 fL (80.0-100.0); Mean Platelet Volume 7.2; Monocytes # (A) 0.4 k/uL (0-1.0); Monocytes % (A) 6 %; Neutrophils # (A) 4.4 k/uL (1.3-7.7); Neutrophils % (A) 67 %; Platelet Count 158 k/uL (150-450); RBC 3.64 m/uL (4.30-5.90); RDW 13.5 % (11.5-15.5); WBC 6.6 k/uL (3.8-10.6)
[2019-08-26 05:03] LABS: Calcium 8.6 mg/dL (8.4-10.2); Potassium 3.4 mmol/L (3.5-5.1)
[2019-08-26] MEDS: INSULIN ASPART (NovoLOG) 100 UNIT/ML VIAL SQ SCH ×4 (06:54→20:41)
[2019-08-26 07:02] LABS: Glucose,Whole Blood 132 mg/dL (75-99)
[2019-08-26] MEDS: ALBUTEROL NEBULIZED 2.5 MG/3 ML INHALATION SCH ×4 (07:54→20:14)
--- NOTE | 2019-08-26 08:27 | XR ---
EXAMINATION TYPE: XR chest 2V DATE OF EXAM: 08/26/2019 COMPARISON: 08/24/2019 HISTORY: 74-year-old male shortness of breath TECHNIQUE: PA and lateral views FINDINGS: Heart mildly enlarged. Diffuse interstitial densities persist. Trace blunting of the right costophren ic angle. Mild hyperinflation. IMPRESSION: 1. Cardiomegaly and interstitial changes persist. Correlate for ongoing CHF with mild pulmonary vascu lar congestion. 2. Trace right effusion appears new.
--- NOTE | 2019-08-26 09:17 | P.PN ---
Subjective Progress Note Date: 08/26/19 Principal diagnosis: Shortness of breath, and lower extremity swelling This is a 74-year-old white male, known history of hypertension, diabetes, hypercholesterolemia ,COPD, patient presented to the ER last night with mostly acute onset of dyspnea. Patient was going to the bathroom, and he noted extreme dyspnea with just walking to the bathroom. He felt minimal chest tightness, no chest pain, no radiation of any chest pain. patient had some coughing, no wheezing, and he noted the sputum was mostly clear. Patient had no nausea no vomiting no abdominal pain. He had no previous history of congestive heart failure, patient noted significant swelling in his lower extremities as well as shortness of breath on presentation. Chest x-ray showed mostly some mild interstitial edema. His BNP level was elevated. Blood pressure was extremely high in the 200 range systolic, and his creatinine was elevated at 2.0. Patient was placed on IV nitroglycerin. Admitted and he was given earlier this morning at dose of Lasix. Significant improvement since admission. Patient is feeling much better by the time I saw him this morning around 9:30 AM. Patient is supposedly compliant with all his cardiac meds including beta blockers and calcium channel blockers. And he is also on diuretics. Looking at his previous history, patient was recently admitted about a month ago to [facility], and he was evaluated at the time for acute kidney injury, hypertensio n, hypotensive episode, and sinus tachycardia. Patient was diagnosed mostly with dehydration. Labs on this admission showed slightly elevated troponin, and seems to be rising, it also showed elevated BNP level, relatively normal CBC, normal electrolytes, BUN is 32 creatinine is 2.05, and his baseline creatinine a month ago was 1.53. On 08/25/2019 patient seen in follow-up in the intensive care unit, he is awake and alert, oriented 3, in no acute distress, he is on room air with pulse ox of 93%, this morning his blood pressure is 166/106, his been off the nitroglycerin drip, blood pressure is better controlled, although patient does remain hypertensive, cardiology is on the case and has been managing the blood pressure medications, Paul has been admitted this morning, no complaint of chest pain, no complaints of shortness of breath, afebrile, patient is on oral Lasix at bedtime, and he was given an additional dose of IV Lasix yesterday, he is in -2252 mL or last 24 hours. Mild lower extremity edema, lung sounds reveal clear breath sounds, otherwise no acute distress. Sinus tach on the monitor with a rate of 101 BPM. On 08/26/2019 patient seen in follow-up in the intensive care unit, he is awake and alert, in no acute distress, he sitting up in the recliner, on room air, no running IVs, his blood pressure is better controlled, morning his blood pressure is 126/71, no complaints of chest pain, no difficulty breathing. No acute issues overnight, today's chest x-ray has been reviewed showing cardiomegaly and interstitial changes, mild pulmonary vessel congestion, and trace right pleural effusion. he remains on oral Lasix. Continue negative fluid balance, he is in -2252 mL fluid balance over the last 24 hours. Doing well, tolerating ambulation, still has some residual lower extremity edema although improved. Objective - Vital Signs Vital signs: Vital Signs Temp 98.1 F 08/26/19 04:00 Pulse 80 08/26/19 08:08 Resp 16 08/26/19 04:00 BP 126/71 08/26/19 04:00 Pulse Ox 96 08/26/19 04:00 Intake & Output 08/25/19 08/26/19 08/26/19 18:59 06:59 18:59 Intake Total 1320 Output Total 350 300 Balance 970 -300 Weight 80.4 kg Intake: Oral 1320 Output: Urine 350 300 Other: Voiding Method Toilet Urinal # Voids 1 - Exam GENERAL EXAM: Alert, pleasant, 74-year-old white male, on room air, with a pulse ox of 93% comfortable in no apparent distress. HEAD: Normocephalic/atraumatic. EYES: Normal reaction of pupils, equal size. Conjunctiva pink, sclera white. NOSE: Clear with pink turbinates. THROAT: No erythema or exudates. NECK: No masses, no JVD, no thyroid enlargement, no adenopathy. CHEST: No chest wall deformity. Symmetrical expansion. LUNGS: Equal air entry with no crackles, wheeze, rhonchi or dullness. CVS: Regular rate and rhythm, normal S1 and S2, no gallops, no murmurs, no rubs ABDOMEN: Soft, nontender. No hepatosplenomegaly, normal bowel sounds, no guarding or rigidity. EXTREMITIES: No clubbing, mild pretibial edema, no cyanosis, 2+ pulses and upper and lower extremities. MUSCULOSKELETAL: Muscle strength and tone normal. SPINE: No scoliosis or deformity SKIN: No rashes CENTRAL NERVOUS SYSTEM: Alert and oriented -3. No focal deficits, tone is normal in all 4 extremities. PSYCHIATRIC: Alert and oriented -3. Appropriate affect. Intact judgment and insight. - Labs CBC & Chem 7: 08/26/19 04:17 08/26/19 04:13 Labs: Abnormal Lab Results - Last 24 Hours (Table) 08/25/19 08/25/19 08/25/19 Range/Units 11:39 11:49 17:00 RBC (4.30-5.90) m/uL Hgb (13.0-17.5) gm/dL Hct (39.0-53.0) % Potassium (3.5-5.1) mmol/L BUN (9-20) mg/dL Creatinine (0.66-1.25) mg/dL Glucose (74-99) mg/dL POC Glucose (mg/dL) 154 H 148 H 194 H (75-99) mg/dL 08/25/19 08/26/19 08/26/19 Range/Units 20:37 04:13 04:17 RBC 3.64 L (4.30-5.90) m/uL Hgb 10.7 L (13.0-17.5) gm/dL Hct 32.2 L (39.0-53.0) % Potassium 3.4 L (3.5-5.1) mmol/L BUN 46 H (9-20) mg/dL Creatinine 2.63 H (0.66-1.25) mg/dL Glucose 135 H (74-99) mg/dL POC Glucose (mg/dL) 144 H (75-99) mg/dL 08/26/19 Range/Units 06:51 RBC (4.30-5.90) m/uL Hgb (13.0-17.5) gm/dL Hct (39.0-53.0) % Potassium (3.5-5.1) mmol/L BUN (9-20) mg/dL Creatinine (0.66-1.25) mg/dL Glucose (74-99) mg/dL POC Glucose (mg/dL) 132 H (75-99) mg/dL Assessment and Plan Plan: Assessment: 1 acute pulmonary edema secondary to hypertensive emergency. 2 hypertensive emergency, patient is now off nitroglycerin drip, and he was placed back on his blood pressure medications including amlodipine and beta blockers. 3 type 2 diabetes. 4 chronic renal failure stage 2 5 acute on chronic kidney injury secondary to hypertensive emergency. 6. Hypercholesterolemia 7 possible underlying coronary artery disease, being addressed by cardiology, patient did have positive troponins on admission. 8 history of depression, presently under control with Lexapro, and Wellbutrin. 9 suspect some component of underlying COPD severity of which is not clear, patient has been a smoker over the years, and he continues to smoke, is at least a [id number] smoker. Presently smokes few cigarettes per day. Plan: Patient remains stable, blood pressure is better controlled, no difficulty breathing, no complaints of chest pain, x-ray shows some improvement in the appearance of interstitial edema, patient remains on oral Lasix, maintaining negative fluid balance, tolerating ambulation, no acute issues overnight. He is stable for transfer out of the intensive care unit, he has been an overflow for selective care unit since yesterday, possible discharge home today if cleared by cardiology. I performed a history & physical examination of the patient and discussed their management with my nurse practitioner, Valorie Gilbert. I reviewed the nurse practitioner's note and agree with the documented findings and plan of care. Lung sounds are positive for clear breath sounds. The findings and the impression was discussed with the patient. I attest to the documentation by the nurse practitioner. Time with Patient: Less than 30
[2019-08-26] MEDS: cloNIDine HCL 0.2 MG TAB PO SCH ×3 (09:21→22:46)
[2019-08-26] MEDS: clonazePAM 1 MG TAB PO SCH ×2 (09:21→20:40)
[2019-08-26] MEDS: ISOSORBIDE MONONITRATE ER 30 MG TAB.ER.24H PO SCH (09:21)
[2019-08-26] MEDS: ASPIRIN 325 MG TAB PO SCH (09:21)
[2019-08-26] MEDS: amLODIPine 10 MG TAB PO SCH (09:21)
[2019-08-26] MEDS: hydrALAZINE HCL 50 MG TAB PO SCH (09:21)
[2019-08-26] MEDS: POTASSIUM CHLORIDE ER 20 MEQ TAB.ER PO SCH ×2 (09:21→10:22)
[2019-08-26] MEDS: buPROPion XL 300 MG TAB.ER.24H PO SCH (09:22)
[2019-08-26] MEDS: ATENOLOL 50 MG TAB PO SCH (09:22)
--- NOTE | 2019-08-26 10:51 | CDI ---
Documentation Clarification Form Date: 08/26/2019 10:40:13 AM From: Jody AndreaREDDY, CCDS Admit Date: 08/24/2019 6:47:00 AM Patient Name: Bernardo Boston Visit Number: [id number] Discharge Date: ATTENTION: The Clinical Documentation Specialists (CDI) and [facility] Coding Staff appreciate your assistance in clarifying documentation. Please respond to the clarification below the line at the bottom and electronically sign. The CDI & [facility] Coding staff will review the response and follow-up if needed. Please note: Queries are made part of the Legal Health Record. If you have any questions, please contact the author of this message via ITS. Dr. Jonah Gonzales: Patient presented to the ED with severe dyspnea, SOB, cough w/some clear sputum. On initial exam: in respiratory distress, wheezing, accessory muscle use with decreased breath sounds. History/Risk Factors: DM I, Hyperlipidemia, Hypertension, BPH, Smoker. Clinical Indicators: Admitted to ICU with hypertensive emergency, Acute renal failure & acute pulmonary edema secondary to hypertensive emergency. Vital signs: T 97.1*, P 134^, R 40 (sob, labored, accessory use); BP 251/165^, PO 97 - 81* (on aerosol mist), put on BiPAP, PO improved to 99-100, weaned to 3L. Treatment: IV Nitro drip, IV Ms, INH Albuterol, IV Lasix. BiPAP, pulmonary/critical care consult, cardiology consult & admit to ICU. In your professional opinion, can you please clarify if these findings signify one of the following conditions? Respiratory failure ruled out Respiratory failure ruled in: o Acute Respiratory Failure o Acute on Chronic Respiratory Failure o Chronic Respiratory Failure Other Diagnosis, please specify Unable to determine Please include with hypoxia, hypercapnia or other, please specify. (Last Query Form Revision: June 2019) Hypertensive urgency/emergency with pulmonary edema MTDD
--- NOTE | 2019-08-26 12:04 | P.DS ---
Providers Date of admission: 08/24/19 06:47 Expected date of discharge: 08/26/19 Attending physician: Marlon Card MD Consults: 08/24/19 06:45 Consult Physician Routine Consulting Provider: Sly Fortune Consult Reason/Comments: Hypertension emergency. Congestive heart failure. Do you want consulting provider notified?: Yes 08/24/19 10:02 Consult Physician Stat Consulting Provider: Isaura Ramos Consult Reason/Comments: ICU management Do you want consulting provider notified?: Already Contacted Primary care physician: Marlon Card MD Hospital Course: Final Diagnoses: -Hypertensive emergency, status post IV nitroglycerin. -Acute on chronic renal failure stage II, secondary to hypertensive emergency and with a component of prerenal azotemia. -Acute CHF, diastolic dysfunction secondary to pulmonary edema from hypertensive emergency. -Elevated troponin probably secondary to hypertensive emergency, cardiology following -Type 2 diabetes mellitus, metformin and the sulfonylureas will be held because of acute renal failure -Hyperlipidemia -Depression. Hospital course: This is a 74-year-old gentleman admitted with hypertensive emergency, acute CHF exacerbation, chronic renal failure remains off of nitroglycerin drip since yesterday. Hypertensive this morning with systolic blood pressures in the 180s, Catapres added to med regime, beta travon dose increased. Echo reporting normal LV function EF 55-60%. Breathing improved, maintaining O2 sats in the 90s on room air. Renal function improving, creatinine down to 1.73. Antihypertensives further adjusted, creatinine up to 2.63. Feels better, eager for discharge. Cleared by cardiology for discharge. Patient is being discharged home in stable condition with guarded prognosis with the underst anding that he will follow-up with Dr. Marlon Card in clinic tomorrow with repeat labs of CBC, BMP-close monitoring of renal function. Lasix dose decreased to 20 mg daily at bedtime until seen in clinic tomorrow. - Exam GENERAL: The patient is alert and oriented x3, no acute distress. CARDIOVASCULAR: S1 and S2 present. No murmurs, rubs, or gallops. PULMONARY: Nonlabored, essentially clear, no rhonchi, crackles or wheezes.. ABDOMEN: Soft, nontender, nondistended, normoactive bowel sounds. No palpable organomegaly. NEUROLOGICAL: Gross neurological examination did not reveal any focal deficits. The impression and plan of care has been dictated as directed. : I performed a history and examination of this patient, discussed the same with the dictator. I agree with the dictator's note ,documented as a scribe. Any additional findings or plans will be noted. Patient Condition at Discharge: Stable Plan - Discharge Summary Discharge Rx Participant: Yes New Discharge Prescriptions: New cloNIDine HCL [Catapres] 0.2 mg PO TID #21 tab Isosorbide Mononitrate ER [Imdur] 30 mg PO DAILY #30 tab.er.24h amLODIPine BESYLATE [Norvasc] 5 mg PO DAILY #1 tablet hydrALAZINE HCL [Apresoline] 25 mg PO BID #60 tab Potassium Chloride ER [K-Dur 20] 20 meq PO DAILY #30 tab.er.prt Continue Tamsulosin [Flomax] 0.8 mg PO HS clonazePAM [KlonoPIN] 1 mg PO BID Atorvastatin [Lipitor] 40 mg PO HS buPROPion XL [Wellbutrin XL] 300 mg PO DAILY #7 tab.er.24h Escitalopram Oxalate [Lexapro] 10 mg PO HS Aspirin EC [Ecotrin Low Dose] 81 mg PO DAILY Changed Furosemide [Lasix] 20 mg PO HS #0 Atenolol [Tenormin] 50 mg PO DAILY #30 tab Cyclobenzaprine [Flexeril] 5 mg PO BID #0 Discontinued metFORMIN HCL 1,000 mg PO BID amLODIPine BESYLATE [Norvasc] 10 mg PO DAILY Glimepiride [Amaryl] 2 mg PO BID Benazepril HCl 40 mg PO DAILY Discharge Medication List Tamsulosin [Flomax] 0.8 mg PO HS 04/27/14 [History] clonazePAM [KlonoPIN] 1 mg PO BID 04/27/14 [History] Atorvastatin [Lipitor] 40 mg PO HS 10/18/18 [History] buPROPion XL [Wellbutrin XL] 300 mg PO DAILY #7 tab.er.24h 10/18/18 [Rx] Aspirin EC [Ecotrin Low Dose] 81 mg PO DAILY 06/03/19 [History] Escitalopram Oxalate [Lexapro] 10 mg PO HS 06/03/19 [History] Atenolol [Tenormin] 50 mg PO DAILY #30 tab 08/26/19 [Rx] Cyclobenzaprine [Flexeril] 5 mg PO BID #0 08/26/19 [Rx] Furosemide [Lasix] 20 mg PO HS #0 08/26/19 [Rx] Isosorbide Mononitrate ER [Imdur] 30 mg PO DAILY #30 tab.er.24h 08/26/19 [Rx] Potassium Chloride ER [K-Dur 20] 20 meq PO DAILY #30 tab.er.prt 08/26/19 [Rx] amLODIPine BESYLATE [Norvasc] 5 mg PO DAILY #1 tablet 08/26/19 [Rx] cloNIDine HCL [Catapres] 0.2 mg PO TID #21 tab 08/26/19 [Rx] hydrALAZINE HCL [Apresoline] 25 mg PO BID #60 tab 08/26/19 [Rx] Follow up Appointment(s)/Referral(s): Marlon Card MD [Primary Care Provider] - 08/27/19 [facility], [NON-STAFF] - 1-2 Days Ambulatory/Diagnostic Orders: Complete Blood Count w/diff [LAB.AMB] Time Frame: 1 Day, Location: None Selected
[2019-08-26 12:10] LABS: Glucose,Whole Blood 171 mg/dL (75-99)
--- NOTE | 2019-08-26 13:07 | PN ---
PROGRESS NOTE Bernardo is a 74-year-old gentleman who is admitted to hospital with severe uncontrolled hypertension and this morning patient appears fine. Blood pressures are well controlled with the optimal antihypertensive therapy that I initiated. His heart failure has resolved. Patient is ready to be discharged home. On exam, patient is afebrile. Heart rate is 65 beats per minute. Blood pressure is 124/73, respirations 18. Chest exam reveals diminished air entry at the bases. Heart exam reveals first and second heart sounds and S4 is heard. Exam of extremities did not reveal any edema. Labs show that the hemoglobin is 10.7, potassium is 3.4, BUN is 46, creatinine is 2.6. I will decrease the Norvasc to 5 mg daily as his blood pressure is somewhat lower than what we want it to be and decrease the Apresoline to 25 b.i.d. and continue the Catapres. Patient will be followed up in our office and we will adjust the medications as needed. MMODL / IJN: [id number] /
[2019-08-26 17:20] LABS: Glucose,Whole Blood 203 mg/dL (75-99)
[2019-08-26 20:36] LABS: Glucose,Whole Blood 168 mg/dL (75-99)
[2019-08-26] MEDS: ATORVASTATIN 40 MG TAB PO SCH (20:40)
[2019-08-26] MEDS: hydrALAZINE HCL 25 MG TAB PO SCH (20:40)
[2019-08-26] MEDS: ESCITALOPRAM 10 MG TAB PO SCH (20:40)
[2019-08-26] MEDS: FUROSEMIDE 40 MG TAB PO SCH (20:40)
[2019-08-26] MEDS: TAMSULOSIN 0.4 MG CAP.ER.24H PO SCH (20:41)
[2019-08-27 01:48] VITALS: TEMP 97.8
[2019-08-27 06:59] LABS: Glucose,Whole Blood 138 mg/dL (75-99)
[2019-08-27] MEDS: INSULIN ASPART (NovoLOG) 100 UNIT/ML VIAL SQ SCH ×2 (07:08→12:08)
[2019-08-27 07:58] VITALS: RESP 16
[2019-08-27] MEDS: ALBUTEROL NEBULIZED 2.5 MG/3 ML INHALATION SCH ×2 (07:59→13:33)
[2019-08-27 08:01] LABS: Potassium 3.9 mmol/L (3.5-5.1)
[2019-08-27] MEDS ORDERED: amLODIPine 5 MG TAB PO SCH (09:00)
[2019-08-27] MEDS ORDERED: POTASSIUM CHLORIDE ER 20 MEQ TAB.ER PO SCH (09:00)
[2019-08-27] MEDS: CYCLOBENZAPRINE 5 MG TAB PO PRN (09:03)
[2019-08-27] MEDS: buPROPion XL 300 MG TAB.ER.24H PO SCH (09:04)
[2019-08-27] MEDS: ATENOLOL 50 MG TAB PO SCH (09:04)
[2019-08-27] MEDS: ASPIRIN 325 MG TAB PO SCH (09:04)
[2019-08-27] MEDS: ISOSORBIDE MONONITRATE ER 30 MG TAB.ER.24H PO SCH (09:05)
[2019-08-27] MEDS: clonazePAM 1 MG TAB PO SCH (09:05)
[2019-08-27] MEDS: hydrALAZINE HCL 25 MG TAB PO SCH (10:18)
[2019-08-27] MEDS: cloNIDine HCL 0.2 MG TAB PO SCH (10:18)
--- NOTE | 2019-08-27 10:46 | P.DS ---
Providers Date of admission: 08/24/19 06:47 Expected date of discharge: 08/27/19 Attending physician: Marlon Card MD Consults: 08/24/19 06:45 Consult Physician Routine Consulting Provider: Sly Fortune Consult Reason/Comments: Hypertension emergency. Congestive heart failure. Do you want consulting provider notified?: Yes 08/24/19 10:02 Consult Physician Stat Consulting Provider: Isaura Ramos Consult Reason/Comments: ICU management Do you want consulting provider notified?: Already Contacted Primary care physician: Marlon Card MD Hospital Course: Final Diagnoses: -Hypertensive emergency, status post IV nitroglycerin. -Acute on chronic renal failure stage II, secondary to hypertensive emergency and with a component of prerenal azotemia. -Acute CHF, diastolic dysfunction secondary to pulmonary edema from hypertensive emergency. -Elevated troponin probably secondary to hypertensive emergency, cardiology following -Type 2 diabetes mellitus, metformin and the sulfonylureas will be held because of acute renal failure -Hyperlipidemia -Depression. Hospital course: This is a 74-year-old gentleman admitted with hypertensive emergency, acute CHF exacerbation, chronic renal failure remains off of nitroglycerin drip since yesterday. Hypertensive this morning with systolic blood pressures in the 180s, Catapres added to med regime, beta travon dose increased. Echo reporting normal LV function EF 55-60%. Breathing improved, maintaining O2 sats in the 90s on room air. Renal function improving, creatinine down to 1.73. Antihypertensives further adjusted, creatinine 2.56. Feels better, eager for discharge. Patient is being discharged home in stable condition ,with guarded prognosis pending cardiology clearance .Patient will follow-up with Dr. Marlon Card in clinic tomorrow with repeat labs of CBC, BMP-close monitoring of renal function. Lasix dose decreased to 20 mg daily at bedtime until seen in clinic tomorrow. Exam GENERAL: The patient is alert and oriented x3, no acute distress. CARDIOVASCULAR: S1 and S2 present. No murmurs, rubs, or gallops. PULMONARY: Nonlabored, essentially clear, no rhonchi, crackles or wheezes.. ABDOMEN: Soft, nontender, nondistended, normoactive bowel sounds. No palpable organomegaly. NEUROLOGICAL: Gross neurological examination did not reveal any focal deficits. The impression and plan of care has been dictated as directed. : I performed a history and examination of this patient, discussed the same with the dictator. I agree with the dictator's note ,documented as a scribe. Any additional findings or plans will be noted. Patient Condition at Discharge: Stable Plan - Discharge Summary Discharge Rx Participant: Yes New Discharge Prescriptions: New cloNIDine HCL [Catapres] 0.2 mg PO TID #21 tab Isosorbide Mononitrate ER [Imdur] 30 mg PO DAILY #30 tab.er.24h amLODIPine BESYLATE [Norvasc] 5 mg PO DAILY #1 tablet hydrALAZINE HCL [Apresoline] 25 mg PO BID #60 tab Potassium Chloride ER [K-Dur 20] 20 meq PO DAILY #30 tab.er.prt Continue Tamsulosin [Flomax] 0.8 mg PO HS clonazePAM [KlonoPIN] 1 mg PO BID Atorvastatin [Lipitor] 40 mg PO HS buPROPion XL [Wellbutrin XL] 300 mg PO DAILY #7 tab.er.24h Escitalopram Oxalate [Lexapro] 10 mg PO HS Aspirin EC [Ecotrin Low Dose] 81 mg PO DAILY Changed Furosemide [Lasix] 20 mg PO HS #0 Atenolol [Tenormin] 50 mg PO DAILY #30 tab Cyclobenzaprine [Flexeril] 5 mg PO BID #0 Discontinued metFORMIN HCL 1,000 mg PO BID amLODIPine BESYLATE [Norvasc] 10 mg PO DAILY Glimepiride [Amaryl] 2 mg PO BID Benazepril HCl 40 mg PO DAILY Discharge Medication List Tamsulosin [Flomax] 0.8 mg PO HS 04/27/14 [History] clonazePAM [KlonoPIN] 1 mg PO BID 04/27/14 [History] Atorvastatin [Lipitor] 40 mg PO HS 10/18/18 [History] buPROPion XL [Wellbutrin XL] 300 mg PO DAILY #7 tab.er.24h 10/18/18 [Rx] Aspirin EC [Ecotrin Low Dose] 81 mg PO DAILY 06/03/19 [History] Escitalopram Oxalate [Lexapro] 10 mg PO HS 06/03/19 [History] Atenolol [Tenormin] 50 mg PO DAILY #30 tab 08/26/19 [Rx] Cyclobenzaprine [Flexeril] 5 mg PO BID #0 08/26/19 [Rx] Furosemide [Lasix] 20 mg PO HS #0 08/26/19 [Rx] Isosorbide Mononitrate ER [Imdur] 30 mg PO DAILY #30 tab.er.24h 08/26/19 [Rx] Potassium Chloride ER [K-Dur 20] 20 meq PO DAILY #30 tab.er.prt 08/26/19 [Rx] amLODIPine BESYLATE [Norvasc] 5 mg PO DAILY #1 tablet 08/26/19 [Rx] cloNIDine HCL [Catapres] 0.2 mg PO TID #21 tab 08/26/19 [Rx] hydrALAZINE HCL [Apresoline] 25 mg PO BID #60 tab 08/26/19 [Rx] Follow up Appointment(s)/Referral(s): Marlon Card MD [Primary Care Provider] - 1-2 Days [facility], [NON-STAFF] - 1-2 Days Leland Alegria MD [STAFF PHYSICIAN] - 09/01/19 9:15 am Ambulatory/Diagnostic Orders: Complete Blood Count w/diff [LAB.AMB] Time Frame: 1 Day, Location: None Selected Patient Instructions/Handouts: Heart Failure (DC), Chronic Kidney Disease (DC), Hypertensive Crisis (DC)
[2019-08-27 12:01] LABS: Glucose,Whole Blood 147 mg/dL (75-99)
--- NOTE | 2019-08-27 13:12 | PN ---
PROGRESS NOTE Mr. Boston was admitted to hospital with severe uncontrolled hypertension and congestive heart failure related to it and we were able to treat him with optimal medical therapy. Unfortunately, the patient became hypotensive yesterday, hence we had to hold his discharge. I cut down his medication this morning. His blood pressure is in the 90s. I got him up walking around. He is doing fine. I am going to stop the amlodipine and cut back on the dose of atenolol. He will continue the Catapres and hydralazine at the current doses. He is going to be followed by his primary care physician within the next 48 hours and his employee benefits coordinator early next week and they will recheck the blood pressures and decide on what to do. PHYSICAL EXAM: Comfortable at rest. Blood pressure is 99/50. Chest exam reveals good air entry bilaterally. Heart exam reveals first and second heart sounds. No gallop. Exam of extremities did not reveal any edema. ASSESSMENT: 1. Hypertension. 2. Pulmonary edema. PLAN: Blood pressure is well controlled. The patient is asymptomatic, ambulating without any problems. Ready for discharge. His echo showed normal LV function. MMODL / IJN: [id number] /
[2019-08-27 13:51] VITALS: BP 90/56; PULSE 55
[2019-08-28] MEDS ORDERED: ATENOLOL 25 MG TAB PO SCH (09:00)
== END 2019-08-27 14:04 | disposition home or self-care (01) | DRG 304 ==
LOC: EC 04:09 → 2SICU 06:47
PROVIDERS: ADMIT Family Medicine; ATTEND Family Medicine
DX: I16.1 Hypertensive emergency (principal); I50.31 Acute diastolic (congestive) heart failure; N17.9 Acute kidney failure, unspecified; I13.0 Hypertensive heart and chronic kidney disease with heart failure and stage 1 through stage 4 chronic kidney disease, or unspecified chronic kidney disease; E11.22 Type 2 diabetes mellitus with diabetic chronic kidney disease; J44.9 Chronic obstructive pulmonary disease, unspecified; R06.03 Acute respiratory distress; E78.00 Pure hypercholesterolemia, unspecified; E78.5 Hyperlipidemia, unspecified; E87.6 Hypokalemia; F17.210 Nicotine dependence, cigarettes, uncomplicated; F32.9 Major depressive disorder, single episode, unspecified; K21.9 Gastro-esophageal reflux disease without esophagitis; N18.2 Chronic kidney disease, stage 2 (mild); N40.0 Benign prostatic hyperplasia without lower urinary tract symptoms; F41.9 Anxiety disorder, unspecified; R79.89 Other specified abnormal findings of blood chemistry; Z79.82 Long term (current) use of aspirin; Z79.84 Long term (current) use of oral hypoglycemic drugs; Z79.899 Other long term (current) drug therapy; Z85.828 Personal history of other malignant neoplasm of skin; Z88.5 Allergy status to narcotic agent; Z89.022 Acquired absence of left finger(s); Z57.4 Occupational exposure to toxic agents in agriculture; Z83.3 Family history of diabetes mellitus; Z80.9 Family history of malignant neoplasm, unspecified; Z84.1 Family history of disorders of kidney and ureter
CPT/HCPCS: 36415; 71045; 71046; 80048; 80053; 83735; 83880; 84132; 84484; 85025; 85610; 85730; 93005; 93306; 94640; 94660; 96365; 96366; 96375; 99291

== ENCOUNTER 2019-09-01 17:08 | Emergency (ER) | payer MEDICARE ==
[2019-09-01 17:27] VITALS: TEMP 97.4
[2019-09-01] MEDS ORDERED: SODIUM CHLORIDE 0.9% 500 ML 500 ML IV STA (18:21)
[2019-09-01] MEDS ORDERED: PANTOPRAZOLE 40 MG/10 ML VIAL IVP STA (18:21)
[2019-09-01 18:45] LABS: Basophils % (A) 0 %; Eosinophils # (A) 0.1 k/uL (0-0.7); Eosinophils % (A) 1 %; HCT 31.9 % (39.0-53.0); HGB 10.7 gm/dL (13.0-17.5); Lymphocytes # (A) 1.2 k/uL (1.0-4.8); Lymphocytes % (A) 16 %; MCH 29.5 pg (25.0-35.0); MCHC 33.5 g/dL (31.0-37.0); MCV 88.1 fL (80.0-100.0); Mean Platelet Volume 7.2; Monocytes # (A) 0.5 k/uL (0-1.0); Monocytes % (A) 6 %; Neutrophils # (A) 5.6 k/uL (1.3-7.7); Neutrophils % (A) 74 %; Platelet Count 207 k/uL (150-450); RBC 3.63 m/uL (4.30-5.90); RDW 13.5 % (11.5-15.5); WBC 7.5 k/uL (3.8-10.6)
--- NOTE | 2019-09-01 18:46 | XR ---
EXAMINATION TYPE: XR chest 2V DATE OF EXAM: 09/01/2019 COMPARISON: 08/26/2019 TECHNIQUE: PA and lateral views submitted. HISTORY: Pain FINDINGS: Heart is enlarged there is diffuse hyperinflation. Subsegmental areas of dilation noted in the inters titium is prominent. Tiny right pleural effusion. Hypertrophic and degenerative change of the spine. Atherosclerotic change aorta. IMPRESSION: 1. Cardiomegaly with persistent interstitial changes correlate for chronic venous congestion or pneum onitis. 2. Stable tiny right pleural effusion.
--- NOTE | 2019-09-01 19:10 | ED ---
GI Bleed HPI - General Chief complaint: GI Bleed Stated complaint: Spitting up blood Time Seen by Provider: 09/01/19 17:40 Source: patient Mode of arrival: wheelchair Limitations: physical limitation - History of Present Illness Initial comments: 74-year-old male patient presents to the emergency department today for evaluation of "spitting up blood". Patient states he's been doing this since around 1:30 this afternoon. Patient states it was "a lot" however he is unable to quantify how much. Patient denies any vomiting, chest pain, or shortness of breath. Denies any coughing with this. Denies any mouth injury. States he has been feeling dizzy and weak. He was recently admitted for congestive heart failure and chest pain. Denies any history of GI bleed. Denies any alcohol or drug use. Denies any dark, black, tarry stools. Denies hematochezia. Patient denies any recent rash, abdominal pain, diarrhea, constipation, back pain, numbness, tingling, hematuria, dysuria, urinary urgency, urinary frequency, headache, visual changes, or any other complaints. - Related Data Home Medications Medication Instructions Recorded Confirmed Tamsulosin [Flomax] 0.8 mg PO HS 04/27/14 09/01/19 clonazePAM [KlonoPIN] 1 mg PO BID 04/27/14 09/01/19 Aspirin EC [Ecotrin Low Dose] 81 mg PO DAILY 06/03/19 09/01/19 Escitalopram Oxalate [Lexapro] 10 mg PO DAILY 06/03/19 09/01/19 Cyclobenzaprine [Flexeril] 10 mg PO HS 09/01/19 09/01/19 Furosemide [Lasix] 40 mg PO DAILY 09/01/19 09/01/19 Multivitamins, Thera [Multivitamin 1 tab PO DAILY 09/01/19 09/01/19 (formulary)] Nitroglycerin Sl Tabs [Nitrostat] 0.4 mg SUBLINGUAL Q5M PRN 09/01/19 09/01/19 Sacubitril/Valsartan [Entresto 97 1 tab PO BID 09/01/19 09/01/19 mg-103 mg Tablet] metFORMIN HCL See Protocol PO AC-BID 09/01/19 09/01/19 Previous Rx's Medication Instructions Recorded buPROPion XL [Wellbutrin XL] 300 mg PO DAILY #7 tab.er.24h 10/18/18 Isosorbide Mononitrate ER [Imdur] 30 mg PO DAILY #30 tab.er.24h 08/26/19 Potassium Chloride ER [K-Dur 20] 20 meq PO DAILY #30 tab.er.prt 08/26/19 cloNIDine HCL [Catapres] 0.2 mg PO TID #21 tab 08/26/19 hydrALAZINE HCL [Apresoline] 25 mg PO BID #60 tab 08/26/19 Atenolol [Tenormin] 25 mg PO DAILY #30 tab 08/27/19 Allergies Allergy/AdvReac Type Severity Reaction Status Date / Time codeine Allergy Rash/Hives Verified 09/01/19 18:34 iodine Allergy Rash/Hives Verified 09/01/19 18:34 Review of Systems ROS Statement: Those systems with pertinent positive or pertinent negative responses have been documented in the HPI. ROS Other: All systems not noted in ROS Statement are negative. Past Medical History Past Medical History: Diabetes Mellitus, Hyperlipidemia, Hypertension Additional Past Medical History / Comment(s): enlarged prostate. History of Any Multi-Drug Resistant Organisms: None Reported Past Surgical History: Back Surgery Additional Past Surgical History / Comment(s): left first and second finger amputation. Past Anesthesia/Blood Transfusion Reactions: No Reported Reaction Past Psychological History: Anxiety Smoking Status: Current every day smoker Past Alcohol Use History: None Reported Past Drug Use History: None Reported - Past Family History Brother(s) Family Medical History: Cancer Mother Family Medical History: Diabetes Mellitus, Renal Disease General Exam Limitations: physical limitation General appearance: alert, in no apparent distress, other (This is a well- developed, well-nourished elderly male patient in no acute distress. Vital signs upon presentation are temperature 97.4F, pulse 67, respirations 18, blood pressure 184/79, pulse ox 95% on room air.) Eye exam: Present: normal appearance, PERRL, EOMI. Absent: scleral icterus, conjunctival injection, periorbital swelling ENT exam: Present: normal exam, normal oropharynx. Absent: mucous membranes moist (Dry mucous membranes) Respiratory exam: Present: normal lung sounds bilaterally. Absent: respiratory distress, wheezes, rales, rhonchi, stridor Cardiovascular Exam: Present: regular rate, normal rhythm, normal heart sounds. Absent: systolic murmur, diastolic murmur, rubs, gallop, clicks GI/Abdominal exam: Present: soft, normal bowel sounds. Absent: distended, tenderness, guarding, rebound, rigid Neurological exam: Present: alert, oriented X3, CN II-XII intact Psychiatric exam: Present: normal affect, normal mood Skin exam: Present: warm, dry, intact, normal color. Absent: rash Course Vital Signs 09/01/19 09/01/19 09/01/19 17:24 18:30 19:00 Temperature 97.4 F L Pulse Rate 67 61 57 L Respiratory 18 15 13 Rate Blood Pressure 184/79 172/84 180/81 O2 Sat by Pulse 95 94 L 92 L Oximetry 09/01/19 09/01/19 19:30 20:00 Temperature Pulse Rate 53 L 73 Respiratory 11 L 17 Rate Blood Pressure 185/90 181/87 O2 Sat by Pulse 92 L 91 L Oximetry Medical Decision Making - Medical Decision Making 74-year-old male patient presents to the emergency department today for evalu ation of bloody sputum. Patient states he has been spitting up blood since around 1:30 this afternoon. Physical examination reveals soft nontender abdomen. Lungs are clear to auscultation. Labs reviewed and are unremarkable. Hemoglobin is stable from previous visit one week ago. Chest x-ray shows no acute cardiopulmonary process. Patient had no bloody sputum all in the department. I did offer admission for further evaluation, patient requested to be discharged. He is instructed to follow-up with his primary care physician for recheck tomorrow. Return parameters were discussed in detail. He verbalizes understanding and agrees with this plan. - Lab Data Result diagrams: 09/01/19 17:55 09/01/19 17:55 Lab Results 09/01/19 09/01/19 09/01/19 Range/Units 17:55 17:55 17:55 WBC 7.5 (3.8-10.6) k/uL RBC 3.63 L (4.30-5.90) m/uL Hgb 10.7 L (13.0-17.5) gm/dL Hct 31.9 L (39.0-53.0) % MCV 88.1 (80.0-100.0) fL MCH 29.5 (25.0-35.0) pg MCHC 33.5 (31.0-37.0) g/dL RDW 13.5 (11.5-15.5) % Plt Count 207 (150-450) k/uL Neutrophils % 74 % Lymphocytes % 16 % Monocytes % 6 % Eosinophils % 1 % Basophils % 0 % Neutrophils # 5.6 (1.3-7.7) k/uL Lymphocytes # 1.2 (1.0-4.8) k/uL Monocytes # 0.5 (0-1.0) k/uL Eosinophils # 0.1 (0-0.7) k/uL Basophils # 0.0 (0-0.2) k/uL PT (9.0-12.0) sec INR (<1.2) APTT (22.0-30.0) sec Sodium 140 (137-145) mmol/L Potassium 4.3 (3.5-5.1) mmol/L Chloride 104 (98-107) mmol/L Carbon Dioxide 27 (22-30) mmol/L Anion Gap 9 mmol/L BUN 55 H (9-20) mg/dL Creatinine 2.38 H (0.66-1.25) mg/dL Est GFR (CKD-EPI)AfAm 30 (>60 ml/min/1.73 sqM) Est GFR (CKD-EPI)NonAf 26 (>60 ml/min/1.73 sqM) Glucose 126 H (74-99) mg/dL Calcium 9.1 (8.4-10.2) mg/dL Magnesium 2.0 (1.6-2.3) mg/dL Total Bilirubin 0.3 (0.2-1.3) mg/dL AST 20 (17-59) U/L ALT 43 (21-72) U/L Alkaline Phosphatase 58 (38-126) U/L Troponin I 0.028 (0.000-0.034) ng/mL Total Protein 6.3 (6.3-8.2) g/dL Albumin 3.7 (3.5-5.0) g/dL 09/01/19 Range/Units 18:45 WBC (3.8-10.6) k/uL RBC (4.30-5.90) m/uL Hgb (13.0-17.5) gm/dL Hct (39.0-53.0) % MCV (80.0-100.0) fL MCH (25.0-35.0) pg MCHC (31.0-37.0) g/dL RDW (11.5-15.5) % Plt Count (150-450) k/uL Neutrophils % % Lymphocytes % % Monocytes % % Eosinophils % % Basophils % % Neutrophils # (1.3-7.7) k/uL Lymphocytes # (1.0-4.8) k/uL Monocytes # (0-1.0) k/uL Eosinophils # (0-0.7) k/uL Basophils # (0-0.2) k/uL PT 10.5 (9.0-12.0) sec INR 1.0 (<1.2) APTT 25.9 (22.0-30.0) sec Sodium (137-145) mmol/L Potassium (3.5-5.1) mmol/L Chloride (98-107) mmol/L Carbon Dioxide (22-30) mmol/L Anion Gap mmol/L BUN (9-20) mg/dL Creatinine (0.66-1.25) mg/dL Est GFR (CKD-EPI)AfAm (>60 ml/min/1.73 sqM) Est GFR (CKD-EPI)NonAf (>60 ml/min/1.73 sqM) Glucose (74-99) mg/dL Calcium (8.4-10.2) mg/dL Magnesium (1.6-2.3) mg/dL Total Bilirubin (0.2-1.3) mg/dL AST (17-59) U/L ALT (21-72) U/L Alkaline Phosphatase (38-126) U/L Troponin I (0.000-0.034) ng/mL Total Protein (6.3-8.2) g/dL Albumin (3.5-5.0) g/dL - EKG Data -: EKG Interpreted by Me EKG Comments: EKG obtained at 1742 shows normal sinus rhythm with a ventricular rate is 65, ID interval 168, QRS duration 88, QT 448, QTC 465. No evidence of ST elevation or depression. - Radiology Data Radiology results: report reviewed, image reviewed Two-view x-ray of the chest is obtained. Report reviewed in its entirety. Impression by Dr. Raza shows cardia megaly of persistent interstitial changes, correlate for chronic venous congestion or pneumonitis. Stable tiny right pleural effusion. Disposition Clinical Impression: Hemoptysis Disposition: HOME SELF-CARE Condition: Good Instructions (If sedation given, give patient instructions): Hemoptysis (ED) Additional Instructions: Follow-up with your primary care physician for recheck tomorrow. Return to the emergency department immediately for any new, worsening, or concerning symptoms. Is patient prescribed a controlled substance at d/c from ED?: No Referrals: Eden Cisneros DO [Primary Care Provider] - 1-2 days Time of Disposition: 20:08
[2019-09-01 19:11] LABS: Albumin 3.7 g/dL (3.5-5.0); Calcium 9.1 mg/dL (8.4-10.2); Potassium 4.3 mmol/L (3.5-5.1); Total Bilirubin 0.3 mg/dL (0.2-1.3); Total Protein 6.3 g/dL (6.3-8.2)
[2019-09-01 19:11] LABS: Partial Thromboplastin Time 25.9 sec (22.0-30.0); Prothrombin Time 10.5 sec (9.0-12.0)
[2019-09-01 20:14] VITALS: BP 181/87; PULSE 73; RESP 17
[2019-09-01] MEDS ORDERED: cloNIDine HCL 0.1 MG TAB PO STA (20:18)
== END 2019-09-01 20:47 | disposition home or self-care (01) ==
LOC: EC 17:08
DX: R04.2 Hemoptysis (principal); R42 Dizziness and giddiness; R53.1 Weakness; E11.9 Type 2 diabetes mellitus without complications; I11.0 Hypertensive heart disease with heart failure; I50.9 Heart failure, unspecified; N40.0 Benign prostatic hyperplasia without lower urinary tract symptoms; F41.9 Anxiety disorder, unspecified; F17.200 Nicotine dependence, unspecified, uncomplicated; Z88.5 Allergy status to narcotic agent; Z91.048 Other nonmedicinal substance allergy status; Z79.82 Long term (current) use of aspirin; Z79.84 Long term (current) use of oral hypoglycemic drugs; Z79.899 Other long term (current) drug therapy
CPT/HCPCS: 36415; 93005; 80053; 83735; 84484; 85025; 85610; 85730; 71046; 99285; 96374; 96361 ×2; C9113

== ENCOUNTER 2019-09-27 14:22 | Emergency (ER) | payer MEDICARE ==
[2019-09-27 14:37] VITALS: RESP 18
--- NOTE | 2019-09-27 14:53 | ED ---
General Adult HPI - General Chief complaint: Abdominal Pain Stated complaint: Abd pain Time Seen by Provider: 09/27/19 14:23 Source: patient, EMS, RN notes reviewed, old records reviewed Mode of arrival: EMS Limitations: no limitations - History of Present Illness Initial comments: 74-year-old male resents for evaluation of right-sided abdominal pain which is been present for the past 2 days. Pain is been constant in nature. Described as severe nonradiating pain. Denies hematuria or dysuria. Denies fever or chills. States he's had some mild nausea and no vomiting. He had a normal bowel movement yesterday. Second complaint of bilateral lower extremity swelling which is chronic. Patient has known history of congestive heart failure. No chest pain or dyspnea. - Related Data Home Medications Medication Instructions Recorded Confirmed Tamsulosin [Flomax] 0.8 mg PO HS 04/27/14 09/01/19 clonazePAM [KlonoPIN] 1 mg PO BID 04/27/14 09/01/19 Aspirin EC [Ecotrin Low Dose] 81 mg PO DAILY 06/03/19 09/01/19 Escitalopram Oxalate [Lexapro] 10 mg PO DAILY 06/03/19 09/01/19 Cyclobenzaprine [Flexeril] 10 mg PO HS 09/01/19 09/01/19 Furosemide [Lasix] 40 mg PO DAILY 09/01/19 09/01/19 Multivitamins, Thera [Multivitamin 1 tab PO DAILY 09/01/19 09/01/19 (formulary)] Nitroglycerin Sl Tabs [Nitrostat] 0.4 mg SUBLINGUAL Q5M PRN 09/01/19 09/01/19 Sacubitril/Valsartan [Entresto 97 1 tab PO BID 09/01/19 09/01/19 mg-103 mg Tablet] metFORMIN HCL See Protocol PO AC-BID 09/01/19 09/01/19 Previous Rx's Medication Instructions Recorded buPROPion XL [Wellbutrin XL] 300 mg PO DAILY #7 tab.er.24h 10/18/18 Isosorbide Mononitrate ER [Imdur] 30 mg PO DAILY #30 tab.er.24h 08/26/19 Potassium Chloride ER [K-Dur 20] 20 meq PO DAILY #30 tab.er.prt 10/29/19 cloNIDine HCL [Catapres] 0.2 mg PO TID #21 tab 08/26/19 hydrALAZINE HCL [Apresoline] 25 mg PO BID #60 tab 08/26/19 Atenolol [Tenormin] 25 mg PO DAILY #30 tab 08/27/19 Hydrocortisone Cream 1 applic TOPICAL TID #30 gm 09/27/19 [Hydrocortisone 1% Cream] Allergies Allergy/AdvReac Type Severity Reaction Status Date / Time codeine Allergy Rash/Hives Verified 09/01/19 18:34 iodine Allergy Rash/Hives Verified 09/01/19 18:34 Review of Systems ROS Statement: Those systems with pertinent positive or pertinent negative responses have been documented in the HPI. ROS Other: All systems not noted in ROS Statement are negative. Past Medical History Past Medical History: Diabetes Mellitus, Hyperlipidemia, Hypertension Additional Past Medical History / Comment(s): enlarged prostate. History of Any Multi-Drug Resistant Organisms: None Reported Past Surgical History: Back Surgery Additional Past Surgical History / Comment(s): left first and second finger amputation. Past Anesthesia/Blood Transfusion Reactions: No Reported Reaction Past Psychological History: Anxiety Smoking Status: Current every day smoker Past Alcohol Use History: None Reported Past Drug Use History: None Reported - Past Family History Brother(s) Family Medical History: Cancer Mother Family Medical History: Diabetes Mellitus, Renal Disease General Exam Limitations: no limitations General appearance: alert, in no apparent distress Head exam: Present: atraumatic, normocephalic Eye exam: Present: normal appearance, PERRL ENT exam: Present: normal exam Neck exam: Present: normal inspection. Absent: tenderness, meningismus Respiratory exam: Present: normal lung sounds bilaterally. Absent: respiratory distress, wheezes Cardiovascular Exam: Present: regular rate, normal rhythm GI/Abdominal exam: Present: soft, distended, tenderness (Right lower quadrant tenderness to palpation). Absent: guarding, rebound Extremities exam: Present: normal capillary refill, pedal edema Neurological exam: Present: alert, oriented X3, CN II-XII intact. Absent: motor sensory deficit Skin exam: Present: warm, dry, intact. Absent: cyanosis, diaphoretic Course Vital Signs 09/27/19 14:34 Temperature 97.7 F Pulse Rate 72 Respiratory 18 Rate Blood Pressure 143/69 O2 Sat by Pulse 97 Oximetry - Reevaluation(s) Reevaluation #1: 09/27/19 16:22 On reevaluation, patient is no longer complaining of abdominal pain. Patient is complaining of bedbug bites on his bilateral forearms. Requesting cream. Medical Decision Making - Medical Decision Making 74-year-old male with multiple complaints including abdominal pain, chronic lower extremity swelling, and bedbug bites. Patient has no leukocytosis, he has a stable and improved hemoglobin from baseline. He has a creatinine of 2.03 which is stable and improved. Mild elevation in BNP with no signs of acute heart failure on chest x-ray. Chest x-ray negative for focal pneumonia or acute findings. He has negative urinalysis. He has a CT abdomen which is performed and shows no acute abdominal or pelvic process. Patient will continue symptomatic treatment at home. He will be prescribed hydrocortisone cream for his bed bug bites. He will follow-up with his primary care physician. - Lab Data Result diagrams: 09/27/19 14:50 09/27/19 14:50 Lab Results 09/27/19 09/27/19 09/27/19 Range/Units 14:50 14:50 14:50 WBC 6.9 (3.8-10.6) k/uL RBC 4.16 L (4.30-5.90) m/uL Hgb 12.0 L (13.0-17.5) gm/dL Hct 36.2 L (39.0-53.0) % MCV 87.1 (80.0-100.0) fL MCH 28.8 (25.0-35.0) pg MCHC 33.1 (31.0-37.0) g/dL RDW 14.0 (11.5-15.5) % Plt Count 209 (150-450) k/uL Neutrophils % 76 % Lymphocytes % 16 % Monocytes % 6 % Eosinophils % 1 % Basophils % 0 % Neutrophils # 5.2 (1.3-7.7) k/uL Lymphocytes # 1.1 (1.0-4.8) k/uL Monocytes # 0.4 (0-1.0) k/uL Eosinophils # 0.1 (0-0.7) k/uL Basophils # 0.0 (0-0.2) k/uL PT (9.0-12.0) sec INR (<1.2) APTT (22.0-30.0) sec Sodium 136 L (137-145) mmol/L Potassium 3.8 (3.5-5.1) mmol/L Chloride 103 (98-107) mmol/L Carbon Dioxide 20 L (22-30) mmol/L Anion Gap 13 mmol/L BUN 39 H (9-20) mg/dL Creatinine 2.03 H (0.66-1.25) mg/dL Est GFR (CKD-EPI)AfAm 36 (>60 ml/min/1.73 sqM) Est GFR (CKD-EPI)NonAf 31 (>60 ml/min/1.73 sqM) Glucose 163 H (74-99) mg/dL Plasma Lactic Acid Galen 0.9 (0.7-2.0) mmol/L Calcium 9.4 (8.4-10.2) mg/dL Total Bilirubin 0.6 (0.2-1.3) mg/dL AST 24 (17-59) U/L ALT 28 (21-72) U/L Alkaline Phosphatase 63 (38-126) U/L NT-Pro-B Natriuret Pep pg/mL Total Protein 6.4 (6.3-8.2) g/dL Albumin 4.1 (3.5-5.0) g/dL Amylase 54 (30-110) U/L Lipase 89 (23-300) U/L Urine Color Urine Appearance (Clear) Urine pH (5.0-8.0) Ur Specific Byron (1.001-1.035) Urine Protein (Negative) Urine Glucose (UA) (Negative) Urine Ketones (Negative) Urine Blood (Negative) Urine Nitrite (Negative) Urine Bilirubin (Negative) Urine Urobilinogen (<2.0) mg/dL Ur Leukocyte Esterase (Negative) Urine RBC (0-5) /hpf Urine WBC (0-5) /hpf Urine Mucus (None) /hpf 09/27/19 09/27/19 09/27/19 Range/Units 14:50 14:50 15:17 WBC (3.8-10.6) k/uL RBC (4.30-5.90) m/uL Hgb (13.0-17.5) gm/dL Hct (39.0-53.0) % MCV (80.0-100.0) fL MCH (25.0-35.0) pg MCHC (31.0-37.0) g/dL RDW (11.5-15.5) % Plt Count (150-450) k/uL Neutrophils % % Lymphocytes % % Monocytes % % Eosinophils % % Basophils % % Neutrophils # (1.3-7.7) k/uL Lymphocytes # (1.0-4.8) k/uL Monocytes # (0-1.0) k/uL Eosinophils # (0-0.7) k/uL Basophils # (0-0.2) k/uL PT 10.4 (9.0-12.0) sec INR 1.0 (<1.2) APTT 24.4 (22.0-30.0) sec Sodium (137-145) mmol/L Potassium (3.5-5.1) mmol/L Chloride (98-107) mmol/L Carbon Dioxide (22-30) mmol/L Anion Gap mmol/L BUN (9-20) mg/dL Creatinine (0.66-1.25) mg/dL Est GFR (CKD-EPI)AfAm (>60 ml/min/1.73 sqM) Est GFR (CKD-EPI)NonAf (>60 ml/min/1.73 sqM) Glucose (74-99) mg/dL Plasma Lactic Acid Galen (0.7-2.0) mmol/L Calcium (8.4-10.2) mg/dL Total Bilirubin (0.2-1.3) mg/dL AST (17-59) U/L ALT (21-72) U/L Alkaline Phosphatase (38-126) U/L NT-Pro-B Natriuret Pep 1910 pg/mL Total Protein (6.3-8.2) g/dL Albumin (3.5-5.0) g/dL Amylase (30-110) U/L Lipase (23-300) U/L Urine Color Yellow Urine Appearance Clear (Clear) Urine pH 5.5 (5.0-8.0) Ur Specific Byron 1.010 (1.001-1.035) Urine Protein 1+ H (Negative) Urine Glucose (UA) Negative (Negative) Urine Ketones Trace H (Negative) Urine Blood Negative (Negative) Urine Nitrite Negative (Negative) Urine Bilirubin Negative (Negative) Urine Urobilinogen <2.0 (<2.0) mg/dL Ur Leukocyte Esterase Negative (Negative) Urine RBC 1 (0-5) /hpf Urine WBC 1 (0-5) /hpf Urine Mucus Rare H (None) /hpf Disposition Clinical Impression: Abdominal pain, Bedbug bite Disposition: HOME SELF-CARE Condition: Fair Instructions (If sedation given, give patient instructions): Abdominal Pain (ED) Prescriptions: Hydrocortisone Cream [Hydrocortisone 1% Cream] 1 applic TOPICAL TID #30 gm Is patient prescribed a controlled substance at d/c from ED?: No Referrals: Eden Cisneros DO [Primary Care Provider] - 1-2 days Time of Disposition: 16:24
[2019-09-27 15:01] LABS: Basophils % (A) 0 %; Eosinophils # (A) 0.1 k/uL (0-0.7); Eosinophils % (A) 1 %; HCT 36.2 % (39.0-53.0); Lymphocytes # (A) 1.1 k/uL (1.0-4.8); Lymphocytes % (A) 16 %; MCH 28.8 pg (25.0-35.0); MCHC 33.1 g/dL (31.0-37.0); MCV 87.1 fL (80.0-100.0); Mean Platelet Volume 6.9; Monocytes # (A) 0.4 k/uL (0-1.0); Monocytes % (A) 6 %; Neutrophils # (A) 5.2 k/uL (1.3-7.7); Neutrophils % (A) 76 %; Platelet Count 209 k/uL (150-450); RBC 4.16 m/uL (4.30-5.90); WBC 6.9 k/uL (3.8-10.6)
[2019-09-27 15:11] LABS: Albumin 4.1 g/dL (3.5-5.0); Calcium 9.4 mg/dL (8.4-10.2); Potassium 3.8 mmol/L (3.5-5.1); Total Bilirubin 0.6 mg/dL (0.2-1.3); Total Protein 6.4 g/dL (6.3-8.2)
[2019-09-27 15:15] LABS: Partial Thromboplastin Time 24.4 sec (22.0-30.0); Prothrombin Time 10.4 sec (9.0-12.0)
[2019-09-27 15:25] LABS: Appearance,Urine Clear (Clear); Bilirubin,Urine Negative (Negative); Blood,Urine Negative (Negative); Color,Urine Yellow; Glucose,Urine (UA) Negative (Negative); Ketones,Urine Trace (Negative); Leukocyte Esterase,Urine Negative (Negative); Mucus,Urine Rare /hpf; Nitrite,Urine Negative (Negative); PH, Urine 5.5 (5.0-8.0); Protein,Urine 1+ (Negative); RBC,Urine 1 /hpf (0-5); Urobilinogen,Urine <2.0 mg/dL (<2.0)
--- NOTE | 2019-09-27 15:53 | XR ---
EXAMINATION TYPE: XR chest 2V DATE OF EXAM: 09/27/2019 COMPARISON: Chest x-ray September 01, 2019 HISTORY: Nausea and pain. TECHNIQUE: Frontal and lateral views of the chest are obtained. FINDINGS: There is chronic parenchymal changes without suspicious focal air space opacity, pleural e ffusion, or pneumothorax seen. The cardiac silhouette size remains enlarged with atherosclerotic aor ta. Multilevel spurring in the spine redemonstrated.. IMPRESSION: Chronic changes and cardiomegaly without acute pulmonary process.
--- NOTE | 2019-09-27 16:11 | CT ---
EXAMINATION TYPE: CT abdomen pelvis wo con DATE OF EXAM: 09/27/2019 HISTORY: RLQ pain CT DLP: 582.6 mGycm. Automated Exposure Control for Dose Reduction was Utilized. TECHNIQUE: CT scan of the abdomen and pelvis is performed without oral or IV contrast. COMPARISON: CT abdomen and pelvis October 23, 2018 FINDINGS: Within the limitations of a non-contrast study, the following observations are made. LUNG BASES: Mild cardiomegaly with small to tiny pericardial effusion. LIVER/GB: Occasional subcentimeter hypodense lesions throughout the liver. PANCREAS: No significant abnormality is seen. SPLEEN: No significant abnormality is seen. ADRENALS: Low-density thickening of both adrenal glands could reflect lipid rich hyperplasia slightly more prominent on the left unchanged from prior studies.. KIDNEYS: Cortical thinning in both kidneys with few scattered simple-appearing thin-walled cysts bila terally. Findings consistent with chronic medical renal disease. There is 4 mm nonobstructing calculu s posteriorly midpole level right kidney coronal image 65 redemonstrated. BOWEL: Diverticula throughout the colon. No CT evidence for acute diverticulitis. Normal-appearing ap pendix. No suspicious small or large bowel dilatation. GENITAL ORGANS: Enlarged prostate gland consistent with BPH LYMPH NODES: No greater than 1cm abdominal or pelvic lymph nodes are appreciated. OSSEOUS STRUCTURES: Posterior interpedicular rods and screws L4-S1 level redemonstrated. OTHER: Moderate to severe calcified plaque of the aorta extends into branch vessels. IMPRESSION: No new or acute findings present.
[2019-09-27 17:23] VITALS: BP 148/69; PULSE 76; TEMP 98.3
== END 2019-09-27 17:10 | disposition home or self-care (01) ==
LOC: EC 14:22
DX: R10.9 Unspecified abdominal pain (principal); M79.89 Other specified soft tissue disorders; R79.89 Other specified abnormal findings of blood chemistry; E11.9 Type 2 diabetes mellitus without complications; E78.5 Hyperlipidemia, unspecified; F41.9 Anxiety disorder, unspecified; I11.0 Hypertensive heart disease with heart failure; I50.9 Heart failure, unspecified; F17.200 Nicotine dependence, unspecified, uncomplicated; Z79.82 Long term (current) use of aspirin; Z79.899 Other long term (current) drug therapy; Z79.84 Long term (current) use of oral hypoglycemic drugs; Z88.5 Allergy status to narcotic agent; Z91.048 Other nonmedicinal substance allergy status; W57.XXXA Bitten or stung by nonvenomous insect and other nonvenomous arthropods, initial encounter
CPT/HCPCS: 36415; 71046; 74176; 80053; 81001; 82150; 83605; 83690; 83880; 85025; 85610; 85730; 99285

== ENCOUNTER 2019-09-28 11:02 | Emergency (ER) | payer MEDICARE ==
[2019-09-28] MEDS ORDERED: SODIUM CHLORIDE 0.9% 1,000 ML IV STA (11:14)
[2019-09-28] MEDS ORDERED: SODIUM CHLORIDE 0.9% 500 ML 500 ML IV STA (11:14)
[2019-09-28 11:31] LABS: Basophils % (A) 0 %; Eosinophils # (A) 0.1 k/uL (0-0.7); Eosinophils % (A) 1 %; HCT 39.4 % (39.0-53.0); HGB 13.2 gm/dL (13.0-17.5); Lymphocytes % (A) 11 %; MCH 29.2 pg (25.0-35.0); MCHC 33.5 g/dL (31.0-37.0); MCV 87.3 fL (80.0-100.0); Mean Platelet Volume 6.2; Monocytes # (A) 0.5 k/uL (0-1.0); Monocytes % (A) 6 %; Neutrophils # (A) 7.6 k/uL (1.3-7.7); Neutrophils % (A) 81 %; Platelet Count 237 k/uL (150-450); RBC 4.51 m/uL (4.30-5.90); WBC 9.3 k/uL (3.8-10.6)
--- NOTE | 2019-09-28 11:34 | ED ---
Anxiety HPI - General Stated Complaint: Anxiety Time Seen by Provider: 09/28/19 11:06 Source: RN notes reviewed, old records reviewed - History of Present Illness Initial Comments: This is this is a 74-year-old male with a history of diabetes hypertension hyperlipidemia prior history of acute kidney injury dehydration who presents today with complaints of being very anxious and seen by bees on his scan and bugs in the skin. He was here yesterday with abdominal pain and complaining of bug bites. This time is abdominal pain resolves spontaneously he did request some type of cream for his scan. He back today very anxious he denies any trauma no fevers chills nausea vomiting sweats. He complains of lesions on his arms and legs no new medications he denies any alcohol or drug use he is a smoker he states he hasn't smoked today. No other modifying factors the patient did later complain that he wanted to drive his car into [facility] and does want to kill himself. MD Complaint: anxiety, other - Related Data Home Medications: Home Medications Medication Instructions Recorded Confirmed Tamsulosin [Flomax] 0.8 mg PO HS 04/27/14 09/01/19 clonazePAM [KlonoPIN] 1 mg PO BID 04/27/14 09/01/19 Aspirin EC [Ecotrin Low Dose] 81 mg PO DAILY 06/03/19 09/01/19 Escitalopram Oxalate [Lexapro] 10 mg PO DAILY 06/03/19 09/01/19 Cyclobenzaprine [Flexeril] 10 mg PO HS 09/01/19 09/01/19 Furosemide [Lasix] 40 mg PO DAILY 09/01/19 09/01/19 Multivitamins, Thera [Multivitamin 1 tab PO DAILY 09/01/19 09/01/19 (formulary)] Nitroglycerin Sl Tabs [Nitrostat] 0.4 mg SUBLINGUAL Q5M PRN 09/01/19 09/01/19 Sacubitril/Valsartan [Entresto 97 1 tab PO BID 09/01/19 09/01/19 mg-103 mg Tablet] metFORMIN HCL See Protocol PO AC-BID 09/01/19 09/01/19 Previous Rx's Medication Instructions Recorded buPROPion XL [Wellbutrin XL] 300 mg PO DAILY #7 tab.er.24h 12/21/18 Isosorbide Mononitrate ER [Imdur] 30 mg PO DAILY #30 tab.er.24h 08/26/19 Potassium Chloride ER [K-Dur 20] 20 meq PO DAILY #30 tab.er.prt 08/26/19 cloNIDine HCL [Catapres] 0.2 mg PO TID #21 tab 08/26/19 hydrALAZINE HCL [Apresoline] 25 mg PO BID #60 tab 08/26/19 Atenolol [Tenormin] 25 mg PO DAILY #30 tab 08/27/19 Hydrocortisone Cream 1 applic TOPICAL TID #30 gm 09/27/19 [Hydrocortisone 1% Cream] Allergies/Adverse Reactions: Allergies Allergy/AdvReac Type Severity Reaction Status Date / Time codeine Allergy Rash/Hives Verified 09/01/19 18:34 iodine Allergy Rash/Hives Verified 09/01/19 18:34 Review of Systems ROS Statement: Those systems with pertinent positive or pertinent negative responses have been documented in the HPI. ROS Other: All systems not noted in ROS Statement are negative. Past Medical History Past Medical History: Diabetes Mellitus, Hyperlipidemia, Hypertension Additional Past Medical History / Comment(s): enlarged prostate. History of Any Multi-Drug Resistant Organisms: None Reported Past Surgical History: Back Surgery Additional Past Surgical History / Comment(s): left first and second finger amputation. Past Anesthesia/Blood Transfusion Reactions: No Reported Reaction Past Psychological History: Anxiety Smoking Status: Current every day smoker Past Alcohol Use History: None Reported Past Drug Use History: None Reported - Past Family History Brother(s) Family Medical History: Cancer Mother Family Medical History: Diabetes Mellitus, Renal Disease General Exam - General Exam Comments Initial Comments: This a well-developed well-nourished awake alert anxious male who does demonstrate some flight of ideas. General appearance: alert, anxious, in distress Head exam: Present: atraumatic, normocephalic, normal inspection Eye exam: Present: normal appearance, PERRL, EOMI. Absent: scleral icterus, conjunctival injection, periorbital swelling ENT exam: Present: mucous membranes dry Neck exam: Present: normal inspection, full ROM, other (No stridor JVD or bruits). Absent: tenderness, meningismus, lymphadenopathy Respiratory exam: Present: normal lung sounds bilaterally. Absent: respiratory distress, wheezes, rales, rhonchi, stridor Cardiovascular Exam: Present: normal rhythm, tachycardia, normal heart sounds. Absent: systolic murmur, diastolic murmur, rubs, gallop, clicks GI/Abdominal exam: Present: soft, normal bowel sounds. Absent: distended, tende rness, guarding, rebound, rigid, bruit, pulsatile mass Rectal exam: Present: deferred Extremities exam: Present: normal inspection, full ROM, normal capillary refill, other (No skin lesions or insects are noted on examination of the integument.). Absent: tenderness, pedal edema, joint swelling, calf tenderness Back exam: Present: normal inspection Neurological exam: Present: alert, oriented X3, CN II-XII intact. Absent: motor sensory deficit Psychiatric exam: Present: depressed, agitated, anxious, suicidal ideation Skin exam: Present: warm, dry, intact, normal color. Absent: rash Course Vital Signs 09/28/19 09/28/19 09/28/19 11:11 12:18 13:31 Temperature 98.1 F 98.3 F Pulse Rate 93 94 77 Respiratory 20 18 16 Rate Blood Pressure 142/127 140/78 O2 Sat by Pulse 96 97 96 Oximetry 09/28/19 09/28/19 09/28/19 16:58 18:32 20:48 Temperature 97.8 F Pulse Rate 88 87 Respiratory 18 16 18 Rate Blood Pressure 177/87 O2 Sat by Pulse 93 L 96 Oximetry 09/29/19 09/29/19 03:49 08:05 Temperature 98 F Pulse Rate 64 87 Respiratory 18 156 H Rate Blood Pressure 128/60 135/76 O2 Sat by Pulse 98 99 Oximetry - Reevaluation(s) Reevaluation #1: 09/28/19 12:59 A clinical certificate is completed by me. Reevaluation #2: 09/28/19 13:04 Patient is medically cleared I did review the workup the imaging is negative for acute findings the lab work demonstrates chronic condition such as renal insufficiency and elevation of his BNP. Reevaluation #3: 09/28/19 20:28 Patient rested comfortably throughout the afternoon. Patient is pending transfer to a geriatric psychiatric facility for further evaluation. The case is endorsed to Dr. Mccoy at our shift change. Medical Decision Making - Medical Decision Making Patient was endorsed to Dr. Mccoy at our shift change to patient rested comfortably throughout the night in the morning he was transferred to an outpatient psychiatric facility. - Lab Data Result diagrams: 09/28/19 11:21 12 11:21 Lab Results 09/28/19 09/28/19 09/28/19 Range/Units 11:21 11:21 11:21 WBC 9.3 (3.8-10.6) k/uL RBC 4.51 (4.30-5.90) m/uL Hgb 13.2 (13.0-17.5) gm/dL Hct 39.4 (39.0-53.0) % MCV 87.3 (80.0-100.0) fL MCH 29.2 (25.0-35.0) pg MCHC 33.5 (31.0-37.0) g/dL RDW 14.0 (11.5-15.5) % Plt Count 237 (150-450) k/uL Neutrophils % 81 % Lymphocytes % 11 % Monocytes % 6 % Eosinophils % 1 % Basophils % 0 % Neutrophils # 7.6 (1.3-7.7) k/uL Lymphocytes # 1.0 (1.0-4.8) k/uL Monocytes # 0.5 (0-1.0) k/uL Eosinophils # 0.1 (0-0.7) k/uL Basophils # 0.0 (0-0.2) k/uL Sodium (137-145) mmol/L Potassium (3.5-5.1) mmol/L Chloride (98-107) mmol/L Carbon Dioxide (22-30) mmol/L Anion Gap mmol/L BUN (9-20) mg/dL Creatinine (0.66-1.25) mg/dL Est GFR (CKD-EPI)AfAm (>60 ml/min/1.73 sqM) Est GFR (CKD-EPI)NonAf (>60 ml/min/1.73 sqM) Glucose (74-99) mg/dL POC Glucose (mg/dL) (75-99) mg/dL POC Glu Business Professor ID Osmolality 298 (280-301) mosm/kg Calcium (8.4-10.2) mg/dL Magnesium (1.6-2.3) mg/dL Total Bilirubin (0.2-1.3) mg/dL AST (17-59) U/L ALT (21-72) U/L Alkaline Phosphatase (38-126) U/L Ammonia (<30) umol/L Creatine Kinase (55-170) U/L Troponin I (0.000-0.034) ng/mL NT-Pro-B Natriuret Pep 2330 pg/mL Total Protein (6.3-8.2) g/dL Albumin (3.5-5.0) g/dL Lipase 98 (23-300) U/L Urine Color Urine Appearance (Clear) Urine pH (5.0-8.0) Ur Specific [place] (1.001-1.035) Urine Protein (Negative) Urine Glucose (UA) (Negative) Urine Ketones (Negative) Urine Blood (Negative) Urine Nitrite (Negative) Urine Bilirubin (Negative) Urine Urobilinogen (<2.0) mg/dL Ur Leukocyte Esterase (Negative) Urine RBC (0-5) /hpf Urine WBC (0-5) /hpf Urine Bacteria (None) /hpf Urine Opiates Screen (NotDetected) Ur Oxycodone Screen (NotDetected) Urine Methadone Screen (NotDetected) Ur Propoxyphene Screen (NotDetected) Ur Barbiturates Screen (NotDetected) U Tricyclic Antidepress (NotDetected) Ur Phencyclidine Scrn (NotDetected) Ur Amphetamines Screen (NotDetected) U Methamphetamines Scrn (NotDetected) U Benzodiazepines Scrn (NotDetected) Urine Cocaine Screen (NotDetected) U Marijuana (THC) Screen (NotDetected) Serum Alcohol <10 mg/dL 09/28/19 09/28/19 09/28/19 Range/Units 11:21 11:21 11:58 WBC (3.8-10.6) k/uL RBC (4.30-5.90) m/uL Hgb (13.0-17.5) gm/dL Hct (39.0-53.0) % MCV (80.0-100.0) fL MCH (25.0-35.0) pg MCHC (31.0-37.0) g/dL RDW (11.5-15.5) % Plt Count (150-450) k/uL Neutrophils % % Lymphocytes % % Monocytes % % Eosinophils % % Basophils % % Neutrophils # (1.3-7.7) k/uL Lymphocytes # (1.0-4.8) k/uL Monocytes # (0-1.0) k/uL Eosinophils # (0-0.7) k/uL Basophils # (0-0.2) k/uL Sodium 139 (137-145) mmol/L Potassium 3.3 L (3.5-5.1) mmol/L Chloride 101 (98-107) mmol/L Carbon Dioxide 22 (22-30) mmol/L Anion Gap 16 mmol/L BUN 29 H (9-20) mg/dL Creatinine 1.87 H (0.66-1.25) mg/dL Est GFR (CKD-EPI)AfAm 40 (>60 ml/min/1.73 sqM) Est GFR (CKD-EPI)NonAf 35 (>60 ml/min/1.73 sqM) Glucose 158 H (74-99) mg/dL POC Glucose (mg/dL) (75-99) mg/dL POC Glu Business Professor ID Osmolality (280-301) mosm/kg Calcium 9.2 (8.4-10.2) mg/dL Magnesium 1.8 (1.6-2.3) mg/dL Total Bilirubin 1.0 (0.2-1.3) mg/dL AST 30 (17-59) U/L ALT 29 (21-72) U/L Alkaline Phosphatase 72 (38-126) U/L Ammonia (<30) umol/L Creatine Kinase 322 H (55-170) U/L Troponin I 0.020 (0.000-0.034) ng/mL NT-Pro-B Natriuret Pep pg/mL Total Protein 6.7 (6.3-8.2) g/dL Albumin 4.1 (3.5-5.0) g/dL Lipase (23-300) U/L Urine Color Yellow Urine Appearance Clear (Clear) Urine pH 6.0 (5.0-8.0) Ur Specific [place] 1.010 (1.001-1.035) Urine Protein 2+ H (Negative) Urine Glucose (UA) Negative (Negative) Urine Ketones 2+ H (Negative) Urine Blood Trace H (Negative) Urine Nitrite Negative (Negative) Urine Bilirubin Negative (Negative) Urine Urobilinogen <2.0 (<2.0) mg/dL Ur Leukocyte Esterase Negative (Negative) Urine RBC 2 (0-5) /hpf Urine WBC 1 (0-5) /hpf Urine Bacteria Rare H (None) /hpf Urine Opiates Screen Not Detected (NotDetected) Ur Oxycodone Screen Not Detected (NotDetected) Urine Methadone Screen Not Detected (NotDetected) Ur Propoxyphene Screen Not Detected (NotDetected) Ur Barbiturates Screen Not Detected (NotDetected) U Tricyclic Antidepress Not Detected (NotDetected) Ur Phencyclidine Scrn Not Detected (NotDetected) Ur Amphetamines Screen Not Detected (NotDetected) U Methamphetamines Scrn Not Detected (NotDetected) U Benzodiazepines Scrn Not Detected (NotDetected) Urine Cocaine Screen Not Detected (NotDetected) U Marijuana (THC) Screen Not Detected (NotDetected) Serum Alcohol mg/dL 09/28/19 09/28/19 09/28/19 Range/Units 12:25 13:10 18:30 WBC (3.8-10.6) k/uL RBC (4.30-5.90) m/uL Hgb (13.0-17.5) gm/dL Hct (39.0-53.0) % MCV (80.0-100.0) fL MCH (25.0-35.0) pg MCHC (31.0-37.0) g/dL RDW (11.5-15.5) % Plt Count (150-450) k/uL Neutrophils % % Lymphocytes % % Monocytes % % Eosinophils % % Basophils % % Neutrophils # (1.3-7.7) k/uL Lymphocytes # (1.0-4.8) k/uL Monocytes # (0-1.0) k/uL Eosinophils # (0-0.7) k/uL Basophils # (0-0.2) k/uL Sodium (137-145) mmol/L Potassium (3.5-5.1) mmol/L Chloride (98-107) mmol/L Carbon Dioxide (22-30) mmol/L Anion Gap mmol/L BUN (9-20) mg/dL Creatinine (0.66-1.25) mg/dL Est GFR (CKD-EPI)AfAm (>60 ml/min/1.73 sqM) Est GFR (CKD-EPI)NonAf (>60 ml/min/1.73 sqM) Glucose (74-99) mg/dL POC Glucose (mg/dL) 140 H (75-99) mg/dL POC Glu Business Professor ID Marianela Ramos Osmolality (280-301) mosm/kg Calcium (8.4-10.2) mg/dL Magnesium (1.6-2.3) mg/dL Total Bilirubin (0.2-1.3) mg/dL AST (17-59) U/L ALT (21-72) U/L Alkaline Phosphatase (38-126) U/L Ammonia <9 (<30) umol/L Creatine Kinase (55-170) U/L Troponin I (0.000-0.034) ng/mL NT-Pro-B Natriuret Pep pg/mL Total Protein (6.3-8.2) g/dL Albumin (3.5-5.0) g/dL Lipase (23-300) U/L Urine Color Light Yellow Urine Appearance Clear (Clear) Urine pH 6.0 (5.0-8.0) Ur Specific [place] 1.006 (1.001-1.035) Urine Protein 1+ H (Negative) Urine Glucose (UA) Negative (Negative) Urine Ketones 1+ H (Negative) Urine Blood Trace H (Negative) Urine Nitrite Negative (Negative) Urine Bilirubin Negative (Negative) Urine Urobilinogen <2.0 (<2.0) mg/dL Ur Leukocyte Esterase Negative (Negative) Urine RBC 2 (0-5) /hpf Urine WBC <1 (0-5) /hpf Urine Bacteria Rare H (None) /hpf Urine Opiates Screen (NotDetected) Ur Oxycodone Screen (NotDetected) Urine Methadone Screen (NotDetected) Ur Propoxyphene Screen (NotDetected) Ur Barbiturates Screen (NotDetected) U Tricyclic Antidepress (NotDetected) Ur Phencyclidine Scrn (NotDetected) Ur Amphetamines Screen (NotDetected) U Methamphetamines Scrn (NotDetected) U Benzodiazepines Scrn (NotDetected) Urine Cocaine Screen (NotDetected) U Marijuana (THC) Screen (NotDetected) Serum Alcohol mg/dL - EKG Data -: EKG Interpreted by Me EKG shows normal: sinus rhythm EKG Comments: Sinus rhythm of 95. Interval 154 QRS duration 90 QT since QTC 36/485 evidence a prolonged QT. - Radiology Data Radiology results: report reviewed (Imaging was performed and the patient was negative for acute findings.), image reviewed Disposition Clinical Impression: Depression, Suicidal ideation, Psychosis Disposition: TRANSFER TO PSYCH HOSP/UNIT Condition: Stable Referrals: Eden Cisneros DO [Primary Care Provider] - 1-2 days
[2019-09-28 11:39] LABS: Alcohol <10 mg/dL
[2019-09-28 11:40] LABS: Albumin 4.1 g/dL (3.5-5.0); Calcium 9.2 mg/dL (8.4-10.2); Magnesium 1.8 mg/dL (1.6-2.3); Potassium 3.3 mmol/L (3.5-5.1); Total Protein 6.7 g/dL (6.3-8.2)
[2019-09-28 12:22] LABS: Appearance,Urine Clear (Clear); Bacteria,Urine Rare /hpf; Bilirubin,Urine Negative (Negative); Blood,Urine Trace (Negative); Color,Urine Yellow; Glucose,Urine (UA) Negative (Negative); Ketones,Urine 2+ (Negative); Leukocyte Esterase,Urine Negative (Negative); Nitrite,Urine Negative (Negative); Protein,Urine 2+ (Negative); RBC,Urine 2 /hpf (0-5); Urobilinogen,Urine <2.0 mg/dL (<2.0); WBC,Urine 1 /hpf (0-5)
[2019-09-28] MEDS ORDERED: cloNIDine HCL 0.2 MG TAB PO STA (12:22)
--- NOTE | 2019-09-28 12:25 | CT ---
EXAMINATION TYPE: CT brain wo con DATE OF EXAM: 09/28/2019 COMPARISON: None HISTORY: altered mental status, hallucinations CT DLP: 1036.[address] of the brain was performed. The ventricles, basal cisterns and sulci overlying the cerebral convexities demonstrate mild enlargem ent. There is no evidence for intracranial hemorrhage or sulcal effacement. There is decreased attenuation about the periventricular white matter and deep white matter of both c erebral hemispheres, compatible with chronic small vessel ischemia. Differential diagnosis does inclu de demyelination. No mass effects are seen.No midline shift. Osseous calvarium is intact. Mild mucosal thickening of the maxillary sinuses. If symptoms persist consider MRI. IMPRESSION: 1. Age related atrophic and chronic small vessel ischemic change without acute intracranial process s een at this time.
--- NOTE | 2019-09-28 12:26 | XR ---
EXAMINATION TYPE: XR chest 2V DATE OF EXAM: 09/28/2019 COMPARISON: 09/27/2019 HISTORY: Shortness of breath TECHNIQUE: Frontal and lateral views of the chest are obtained. FINDINGS: Scattered senescent parenchymal changes noted. Hyperinflation compatible with COPD. No evidence for infiltrate. No evidence for atelectasis. Heart size is stable. Mediastinal structures are stable and grossly unremarkable. No evidence for hilar prominence. Degenerative changes dorsal spine. IMPRESSION: 1. No evidence for acute pulmonary disease.
[2019-09-28 12:28] LABS: Glucose,Whole Blood 140 mg/dL (75-99)
[2019-09-28 12:33] LABS: Amphetamine Screen,Urine Not Detected (NotDetected); Barbiturate Screen,Urine Not Detected (NotDetected); Benzodiazepines Screen,Urine Not Detected (NotDetected); Cocaine Screen,Urine Not Detected (NotDetected); Methadone Screen, Urine Not Detected (NotDetected); Opiate Screen,Urine Not Detected (NotDetected); Oxycodone Screen, Urine Not Detected (NotDetected); Phencyclidine Screen,Urine Not Detected (NotDetected); Tricyclic Antidepressant,Urine Not Detected (NotDetected); Urn Cannabinoid Scrn Not Detected (NotDetected)
[2019-09-28 13:59] LABS: Appearance,Urine Clear (Clear); Bacteria,Urine Rare /hpf; Bilirubin,Urine Negative (Negative); Blood,Urine Trace (Negative); Color,Urine Light Yellow; Glucose,Urine (UA) Negative (Negative); Ketones,Urine 1+ (Negative); Leukocyte Esterase,Urine Negative (Negative); Nitrite,Urine Negative (Negative); Protein,Urine 1+ (Negative); RBC,Urine 2 /hpf (0-5); Specific Gravity,Urine 1.006 (1.001-1.035); Urobilinogen,Urine <2.0 mg/dL (<2.0); WBC,Urine <1 /hpf (0-5)
[2019-09-28] MEDS ORDERED: hydrALAZINE HCL 25 MG TAB PO STA (18:22)
[2019-09-28] MEDS ORDERED: FUROSEMIDE 40 MG TAB PO STA (18:23)
[2019-09-28] MEDS ORDERED: clonazePAM 1 MG TAB PO STA (18:23)
[2019-09-28] MEDS ORDERED: metFORMIN 500 MG TAB PO STA (18:24)
[2019-09-29 03:50] VITALS: TEMP 98
[2019-09-29 08:06] VITALS: BP 135/76; PULSE 87; RESP 156
== END 2019-09-29 08:06 ==
LOC: EC 11:02
DX: F32.9 Major depressive disorder, single episode, unspecified (principal); R45.851 Suicidal ideations; F29 Unspecified psychosis not due to a substance or known physiological condition; F41.9 Anxiety disorder, unspecified; F17.200 Nicotine dependence, unspecified, uncomplicated; E11.9 Type 2 diabetes mellitus without complications; E78.5 Hyperlipidemia, unspecified; I10 Essential (primary) hypertension; N40.0 Benign prostatic hyperplasia without lower urinary tract symptoms; Z79.84 Long term (current) use of oral hypoglycemic drugs; Z79.82 Long term (current) use of aspirin; Z79.899 Other long term (current) drug therapy; Z88.5 Allergy status to narcotic agent; Z91.041 Radiographic dye allergy status
CPT/HCPCS: 99285 ×2; 82075; 36415; 93005; 83930; 83880; 80053; 82140; 82550; 83690; 83735; 84484; 85025; 81001; 80306; 71046; 70450; G0480; 80320

== ENCOUNTER 2019-10-13 19:36 | Inpatient (IN) | payer MEDICARE ==
[2019-10-13 20:20] LABS: Basophils % (A) 0 %; Eosinophils % (A) 0 %; HCT 36.6 % (39.0-53.0); Lymphocytes # (A) 0.8 k/uL (1.0-4.8); Lymphocytes % (A) 8 %; MCH 28.5 pg (25.0-35.0); MCHC 32.9 g/dL (31.0-37.0); MCV 86.5 fL (80.0-100.0); Mean Platelet Volume 8.2; Monocytes # (A) 0.5 k/uL (0-1.0); Monocytes % (A) 5 %; Neutrophils % (A) 84 %; Platelet Count 169 k/uL (150-450); RBC 4.23 m/uL (4.30-5.90); RDW 14.4 % (11.5-15.5); WBC 9.5 k/uL (3.8-10.6)
[2019-10-13 20:27] LABS: Calcium 9.2 mg/dL (8.4-10.2); Potassium 3.5 mmol/L (3.5-5.1); Total Bilirubin 0.8 mg/dL (0.2-1.3); Total Protein 6.5 g/dL (6.3-8.2)
[2019-10-13 20:43] LABS: INR 0.9 (<1.2); Prothrombin Time 10.1 sec (9.0-12.0)
[2019-10-13 20:54] LABS: Partial Thromboplastin Time 18.2 sec (22.0-30.0)
--- NOTE | 2019-10-13 20:59 | XR ---
EXAMINATION TYPE: XR chest 2V DATE OF EXAM: 10/13/2019 COMPARISON: NONE HISTORY: Weakness TECHNIQUE: 3 views FINDINGS: Heart is enlarged. There is small linear density in the left lower lobe. There is no heart failure. There is no pleural effusion. Bony thorax is intact. IMPRESSION: Mild scarring or subsegmental atelectasis in the left lower lobe increased compared to la st exam. Stable heart is mildly.
--- NOTE | 2019-10-13 21:00 | XR ---
EXAMINATION TYPE: XR pelvis AP view DATE OF EXAM: 10/13/2019 COMPARISON: NONE HISTORY: Pain TECHNIQUE: Single view FINDINGS: Pelvic ring is intact. Proximal femurs and hip joints are intact. Sacroiliac joints appear normal. IMPRESSION: Normal pelvis.
--- NOTE | 2019-10-13 21:27 | CT ---
EXAMINATION TYPE: CT brain xiomara joseph con DATE OF EXAM: 10/13/2019 COMPARISON: CT brain 09/28/2019 HISTORY: fall CT DLP: 1399.1 mGycm Automated exposure control for dose reduction was used. Headache. Neck pain. FINDINGS: There is cerebral cortical atrophy. There is no mass effect nor midline shift. There is no sign of in tracranial hemorrhage. There is multilevel spondylotic changes in the cervical spine. Cervical verteb ra have normal alignment. Facet joints are intact. Skull base is intact. IMPRESSION: Negative CT scan of the brain. Mild atrophy. No acute intracranial abnormality. Left maxillary sinusi tis. No change. Spondylotic changes in the cervical spine. No fracture.
--- NOTE | 2019-10-13 21:32 | CT ---
EXAMINATION TYPE: CT thor lumbar spine wo con DATE OF EXAM: 10/13/2019 COMPARISON: None HISTORY: pain following fall CT DLP: 1428 mGycm Automated exposure control for dose reduction was used. Multiple axial sections were obtained from the level of T1-S1 vertebra without contrast. Thoracic and lumbar vertebra have fairly normal alignment. There is posterior fusion surgery in the l ower lumbar spine at L4 and L5 and S1. There is no lumbar or thoracic compression fracture. There is no thoracic paraspinal mass. Posterior elements are intact. There is anterior hypertrophic spurring i n the lower thoracic spine. There is anterior spurring in the mid and lower lumbar spine. I see no fo larry bone destruction. There is 4.1 cm aneurysm of the ascending aorta. IMPRESSION: Spondylotic changes in the thoracic and lumbar spine. Previous surgery. No fracture. Mild aneurysm of the ascending aorta.
[2019-10-13 21:44] LABS: Appearance,Urine Clear (Clear); Bilirubin,Urine Negative (Negative); Blood,Urine Trace (Negative); Color,Urine Yellow; Glucose,Urine (UA) Negative (Negative); Ketones,Urine 1+ (Negative); Leukocyte Esterase,Urine Negative (Negative); Mucus,Urine Rare /hpf; Nitrite,Urine Negative (Negative); PH, Urine 5.5 (5.0-8.0); Protein,Urine 1+ (Negative); RBC,Urine 1 /hpf (0-5); Specific Gravity,Urine 1.012 (1.001-1.035); Urobilinogen,Urine <2.0 mg/dL (<2.0); WBC,Urine <1 /hpf (0-5)
[2019-10-13] MEDS ORDERED: MORPHINE SULFATE 4 MG/ML SYRINGE IVP STA (22:35)
--- NOTE | 2019-10-13 22:44 | ED ---
Fall HPI - General Chief Complaint: Fall Stated Complaint: Back Pain Time Seen by Provider: 10/13/19 19:55 Source: patient, EMS Mode of arrival: EMS - History of Present Illness Initial Comments: The patient is a 74-year-old male with past history of diabetes, hypertension and hyperlipidemia who presents emergency department with reported back pain. The patient is a very poor historian. He states to me that he sustained a fall yesterday which caused him to have lower back pain. Reports to a previous history of fusion. He states that a neighbor had heard him fall and called EMS. I asked the patient whether he fell again today however he states no. EMS reports that the patient sustained a fall today which was heard by neighbors. He is having difficulties with ambulation after his fall. Neighbors were also reporting that the patient was acting confused. He does live alone. They did provide 4 milligrams of morphine and transported to the hospital for further e valuation. The patient denies any saddle anesthesia. No bladder incontinence. Denies any numbness or tingling into his lower extremity. States he has been unable to ambulate well. Denies any blunt head trauma or loss of consciousness. States it was a mechanical fall. Denies any syncope. No chest pain or shortness of breath. Patient was recently hospitalized at her facility for depression and transferred to a psychiatric facility. He was recently discharged. He currently denies any suicidal or homicidal ideations. - Related Data Home Medications Medication Instructions Recorded Confirmed Tamsulosin [Flomax] 0.8 mg PO HS 04/27/14 10/14/19 clonazePAM [KlonoPIN] 1 mg PO BID 04/27/14 10/14/19 Aspirin EC [Ecotrin Low Dose] 81 mg PO DAILY 06/03/19 10/14/19 Cyclobenzaprine [Flexeril] 10 mg PO HS 09/01/19 10/14/19 Furosemide [Lasix] 40 mg PO DAILY 09/01/19 10/14/19 Multivitamins, Thera [Multivitamin 1 tab PO DAILY 09/01/19 10/14/19 (formulary)] Nitroglycerin Sl Tabs [Nitrostat] 0.4 mg SUBLINGUAL Q5M PRN 09/01/19 10/14/19 Sacubitril/Valsartan [Entresto 97 1 tab PO BID 09/01/19 10/14/19 mg-103 mg Tablet] metFORMIN HCL 1,000 mg PO AC-BID 09/01/19 10/14/19 Simvastatin 40 mg PO DAILY 10/14/19 10/14/19 Previous Rx's Medication Instructions Recorded buPROPion XL [Wellbutrin XL] 300 mg PO DAILY #7 tab.er.24h 10/18/18 Isosorbide Mononitrate ER [Imdur] 30 mg PO DAILY #30 tab.er.24h 08/26/19 Potassium Chloride ER [K-Dur 20] 20 meq PO DAILY #30 tab.er.prt 08/26/19 cloNIDine HCL [Catapres] 0.2 mg PO TID #21 tab 08/26/19 hydrALAZINE HCL [Apresoline] 25 mg PO BID #60 tab 08/26/19 Atenolol [Tenormin] 25 mg PO DAILY #30 tab 08/27/19 Hydrocortisone Cream 1 applic TOPICAL TID #30 gm 09/27/19 [Hydrocortisone 1% Cream] HYDROcodone/APAP 5-325MG [[place] 1 each PO Q6HR PRN #12 tab 10/16/19 5-325] Polyethylene Glycol 3350 [Miralax] 17 gm PO DAILY #30 powd.pack 10/16/19 Sennosides [Senokot] 8.6 mg PO DAILY #30 tab 10/16/19 Allergies Allergy/AdvReac Type Severity Reaction Status Date / Time iodine Allergy Rash/Hives Verified 10/19/19 05:14 morphine AdvReac Hallucinati Verified 10/19/19 05:14 ons Review of Systems ROS Statement: Those systems with pertinent positive or pertinent negative responses have been documented in the HPI. ROS Other: All systems not noted in ROS Statement are negative. Past Medical History Past Medical History: Diabetes Mellitus, Hyperlipidemia, Hypertension Additional Past Medical History / Comment(s): enlarged prostate. History of Any Multi-Drug Resistant Organisms: None Reported Past Surgical History: Back Surgery Additional Past Surgical History / Comment(s): left first and second finger amputation. Past Anesthesia/Blood Transfusion Reactions: No Reported Reaction Past Psychological History: Anxiety Smoking Status: Current every day smoker Past Alcohol Use History: None Reported Past Drug Use History: None Reported - Past Family History Brother(s) Family Medical History: Cancer Mother Family Medical History: Diabetes Mellitus, Renal Disease General Exam Limitations: no limitations General appearance: alert, in no apparent distress Head exam: Present: atraumatic, normocephalic, normal inspection Eye exam: Present: normal appearance, PERRL, EOMI. Absent: scleral icterus, conjunctival injection, periorbital swelling ENT exam: Present: normal exam, mucous membranes moist Neck exam: Present: normal inspection. Absent: tenderness, meningismus, lymphadenopathy Respiratory exam: Present: normal lung sounds bilaterally. Absent: respiratory distress, wheezes, rales, rhonchi, stridor Cardiovascular Exam: Present: regular rate, normal rhythm, normal heart sounds. Absent: systolic murmur, diastolic murmur, rubs, gallop, clicks GI/Abdominal exam: Present: soft, normal bowel sounds. Absent: distended, tenderness, guarding, rebound, rigid Extremities exam: Present: normal inspection, full ROM, normal capillary refill, other (5/5 muscle strength in his bilateral lower extremities. Intact distal sensation. Reflexes in the lower extremities intact. 2+ DP and PT pulses bilaterally). Absent: tenderness, pedal edema, joint swelling, calf tenderness Back exam: Present: tenderness, muscle spasm, paraspinal tenderness. Absent: vertebral tenderness Neurological exam: Present: alert, oriented X3, CN II-XII intact Psychiatric exam: Present: normal affect, normal mood Skin exam: Present: warm, dry, intact, normal color. Absent: rash Course Vital Signs 10/13/19 10/13/19 10/13/19 19:54 20:14 21:00 Temperature 98.3 F 98.6 F Pulse Rate 85 79 78 Respiratory 18 14 17 Rate Blood Pressure 152/79 133/80 132/93 O2 Sat by Pulse 97 95 96 Oximetry 10/13/19 10/13/19 10/13/19 22:00 23:00 23:55 Temperature 98.2 F 98.6 F Pulse Rate 79 99 95 Respiratory 14 18 23 Rate Blood Pressure 139/81 139/81 147/92 O2 Sat by Pulse 99 95 97 Oximetry Medical Decision Making - Medical Decision Making Upon arrival the patient was placed into room 2. A thorough history and physical exam is performed. Laboratory studies were conducted. I did perform a CT of the patient's brain and cervical spine because of his altered mental status. He also performed a CT of the patient's thoracic and lumbar spinous he is reporting back pain. Chest and pelvic x-ray were also performed. Laboratory studies demonstrate a normal CBC and coags. CMP shows a creatinine of 2.2 which is near the patient's baseline creatinine. Urinalysis is positive for 1+ ketones and mucus. Chest and pelvic x-ray are negative for any acute fractures. There is mild scarring or subsegmental atelectasis in the left lower lobe. CT of the patient's head and cervical spine demonstrates mild atrophy with no acute intracranial abnormality. Spondylitic changes in the cervical spine without fracture. CT of the patient's thoracic and lumbar spine demonstrate spondylitic changes with previous surgery. No compression fractures. I discussed results with the patient. We do attempt to ambulate him however he is unable to without assistance. He continues to reports lower abdominal pain. He is given a second dose of morphine. A call discuss case with Dr. Patel who accepted admission for the patient. He is requesting a place orthopedic on consult. I will also have the patient evaluated by physical therapy. Patient remained in stable condition and was transported to floor - Lab Data Result diagrams: 10/16/19 07:34 10/16/19 14:52 Lab Results 10/13/19 10/13/19 10/13/19 Range/Units 19:50 19:50 19:50 WBC 9.5 (3.8-10.6) k/uL RBC 4.23 L (4.30-5.90) m/uL Hgb 12.0 L (13.0-17.5) gm/dL Hct 36.6 L (39.0-53.0) % MCV 86.5 (80.0-100.0) fL MCH 28.5 (25.0-35.0) pg MCHC 32.9 (31.0-37.0) g/dL RDW 14.4 (11.5-15.5) % Plt Count 169 (150-450) k/uL Neutrophils % 84 % Lymphocytes % 8 % Monocytes % 5 % Eosinophils % 0 % Basophils % 0 % Neutrophils # 8.0 H (1.3-7.7) k/uL Lymphocytes # 0.8 L (1.0-4.8) k/uL Monocytes # 0.5 (0-1.0) k/uL Eosinophils # 0.0 (0-0.7) k/uL Basophils # 0.0 (0-0.2) k/uL PT 10.1 (9.0-12.0) sec INR 0.9 (<1.2) APTT 18.2 L (22.0-30.0) sec Sodium (137-145) mmol/L Potassium (3.5-5.1) mmol/L Chloride (98-107) mmol/L Carbon Dioxide (22-30) mmol/L Anion Gap mmol/L BUN (9-20) mg/dL Creatinine (0.66-1.25) mg/dL Est GFR (CKD-EPI)AfAm (>60 ml/min/1.73 sqM) Est GFR (CKD-EPI)NonAf (>60 ml/min/1.73 sqM) Glucose (74-99) mg/dL POC Glucose (mg/dL) (75-99) mg/dL POC Glu Slurry Blender ID Plasma Lactic Acid Galen 1.2 (0.7-2.0) mmol/L Calcium (8.4-10.2) mg/dL Total Bilirubin (0.2-1.3) mg/dL AST (17-59) U/L ALT (4-49) U/L Alkaline Phosphatase (38-126) U/L C-Reactive Protein (<10.0) mg/L Total Protein (6.3-8.2) g/dL Albumin (3.5-5.0) g/dL Procalcitonin (0.02-0.09) ng/mL TSH (0.465-4.680) mIU/L Urine Color Urine Appearance (Clear) Urine pH (5.0-8.0) Ur Specific [place] (1.001-1.035) Urine Protein (Negative) Urine Glucose (UA) (Negative) Urine Ketones (Negative) Urine Blood (Negative) Urine Nitrite (Negative) Urine Bilirubin (Negative) Urine Urobilinogen (<2.0) mg/dL Ur Leukocyte Esterase (Negative) Urine RBC (0-5) /hpf Urine WBC (0-5) /hpf Urine Mucus (None) /hpf 10/13/19 10/13/19 10/13/19 Range/Units 19:50 19:50 21:21 WBC (3.8-10.6) k/uL RBC (4.30-5.90) m/uL Hgb (13.0-17.5) gm/dL Hct (39.0-53.0) % MCV (80.0-100.0) fL MCH (25.0-35.0) pg MCHC (31.0-37.0) g/dL RDW (11.5-15.5) % Plt Count (150-450) k/uL Neutrophils % % Lymphocytes % % Monocytes % % Eosinophils % % Basophils % % Neutrophils # (1.3-7.7) k/uL Lymphocytes # (1.0-4.8) k/uL Monocytes # (0-1.0) k/uL Eosinophils # (0-0.7) k/uL Basophils # (0-0.2) k/uL PT (9.0-12.0) sec INR (<1.2) APTT (22.0-30.0) sec Sodium 137 (137-145) mmol/L Potassium 3.5 (3.5-5.1) mmol/L Chloride 101 (98-107) mmol/L Carbon Dioxide 21 L (22-30) mmol/L Anion Gap 15 mmol/L BUN 46 H (9-20) mg/dL Creatinine 2.26 H (0.66-1.25) mg/dL Est GFR (CKD-EPI)AfAm 32 (>60 ml/min/1.73 sqM) Est GFR (CKD-EPI)NonAf 27 (>60 ml/min/1.73 sqM) Glucose 142 H (74-99) mg/dL POC Glucose (mg/dL) (75-99) mg/dL POC Glu Slurry Blender ID Plasma Lactic Acid Galen (0.7-2.0) mmol/L Calcium 9.2 (8.4-10.2) mg/dL Total Bilirubin 0.8 (0.2-1.3) mg/dL AST 33 (17-59) U/L ALT 24 (4-49) U/L Alkaline Phosphatase 69 (38-126) U/L C-Reactive Protein 23.2 H (<10.0) mg/L Total Protein 6.5 (6.3-8.2) g/dL Albumin 4.0 (3.5-5.0) g/dL Procalcitonin (0.02-0.09) ng/mL TSH 4.470 (0.465-4.680) mIU/L Urine Color Yellow Urine Appearance Clear (Clear) Urine pH 5.5 (5.0-8.0) Ur Specific [place] 1.012 (1.001-1.035) Urine Protein 1+ H (Negative) Urine Glucose (UA) Negative (Negative) Urine Ketones 1+ H (Negative) Urine Blood Trace H (Negative) Urine Nitrite Negative (Negative) Urine Bilirubin Negative (Negative) Urine Urobilinogen <2.0 (<2.0) mg/dL Ur Leukocyte Esterase Negative (Negative) Urine RBC 1 (0-5) /hpf Urine WBC <1 (0-5) /hpf Urine Mucus Rare H (None) /hpf 10/14/19 10/14/19 10/14/19 Range/Units 02:55 06:23 06:52 WBC (3.8-10.6) k/uL RBC (4.30-5.90) m/uL Hgb (13.0-17.5) gm/dL Hct (39.0-53.0) % MCV (80.0-100.0) fL MCH (25.0-35.0) pg MCHC (31.0-37.0) g/dL RDW (11.5-15.5) % Plt Count (150-450) k/uL Neutrophils % % Lymphocytes % % Monocytes % % Eosinophils % % Basophils % % Neutrophils # (1.3-7.7) k/uL Lymphocytes # (1.0-4.8) k/uL Monocytes # (0-1.0) k/uL Eosinophils # (0-0.7) k/uL Basophils # (0-0.2) k/uL PT (9.0-12.0) sec INR (<1.2) APTT (22.0-30.0) sec Sodium (137-145) mmol/L Potassium (3.5-5.1) mmol/L Chloride (98-107) mmol/L Carbon Dioxide (22-30) mmol/L Anion Gap mmol/L BUN (9-20) mg/dL Creatinine (0.66-1.25) mg/dL Est GFR (CKD-EPI)AfAm (>60 ml/min/1.73 sqM) Est GFR (CKD-EPI)NonAf (>60 ml/min/1.73 sqM) Glucose (74-99) mg/dL POC Glucose (mg/dL) 101 H 130 H 132 H (75-99) mg/dL POC Glu Slurry Blender ID Keesha Parker, Abad Pond Plasma Lactic Acid Galen (0.7-2.0) mmol/L Calcium (8.4-10.2) mg/dL Total Bilirubin (0.2-1.3) mg/dL AST (17-59) U/L ALT (4-49) U/L Alkaline Phosphatase (38-126) U/L C-Reactive Protein (<10.0) mg/L Total Protein (6.3-8.2) g/dL Albumin (3.5-5.0) g/dL Procalcitonin (0.02-0.09) ng/mL TSH (0.465-4.680) mIU/L Urine Color Urine Appearance (Clear) Urine pH (5.0-8.0) Ur Specific [place] (1.001-1.035) Urine Protein (Negative) Urine Glucose (UA) (Negative) Urine Ketones (Negative) Urine Blood (Negative) Urine Nitrite (Negative) Urine Bilirubin (Negative) Urine Urobilinogen (<2.0) mg/dL Ur Leukocyte Esterase (Negative) Urine RBC (0-5) /hpf Urine WBC (0-5) /hpf Urine Mucus (None) /hpf 10/14/19 10/14/19 10/14/19 Range/Units 11:53 16:39 17:07 WBC (3.8-10.6) k/uL RBC (4.30-5.90) m/uL Hgb (13.0-17.5) gm/dL Hct (39.0-53.0) % MCV (80.0-100.0) fL MCH (25.0-35.0) pg MCHC (31.0-37.0) g/dL RDW (11.5-15.5) % Plt Count (150-450) k/uL Neutrophils % % Lymphocytes % % Monocytes % % Eosinophils % % Basophils % % Neutrophils # (1.3-7.7) k/uL Lymphocytes # (1.0-4.8) k/uL Monocytes # (0-1.0) k/uL Eosinophils # (0-0.7) k/uL Basophils # (0-0.2) k/uL PT (9.0-12.0) sec INR (<1.2) APTT (22.0-30.0) sec Sodium (137-145) mmol/L Potassium (3.5-5.1) mmol/L Chloride (98-107) mmol/L Carbon Dioxide (22-30) mmol/L Anion Gap mmol/L BUN (9-20) mg/dL Creatinine (0.66-1.25) mg/dL Est GFR (CKD-EPI)AfAm (>60 ml/min/1.73 sqM) Est GFR (CKD-EPI)NonAf (>60 ml/min/1.73 sqM) Glucose (74-99) mg/dL POC Glucose (mg/dL) 179 H 155 H (75-99) mg/dL POC Glu Slurry Blender ID Abad Ghosh Chloe Plasma Lactic Acid [place] (0.7-2.0) mmol/L Calcium (8.4-10.2) mg/dL Total Bilirubin (0.2-1.3) mg/dL AST (17-59) U/L ALT (4-49) U/L Alkaline Phosphatase (38-126) U/L C-Reactive Protein (<10.0) mg/L Total Protein (6.3-8.2) g/dL Albumin (3.5-5.0) g/dL Procalcitonin 0.11 H (0.02-0.09) ng/mL TSH (0.465-4.680) mIU/L Urine Color Urine Appearance (Clear) Urine pH (5.0-8.0) Ur Specific [place] (1.001-1.035) Urine Protein (Negative) Urine Glucose (UA) (Negative) Urine Ketones (Negative) Urine Blood (Negative) Urine Nitrite (Negative) Urine Bilirubin (Negative) Urine Urobilinogen (<2.0) mg/dL Ur Leukocyte Esterase (Negative) Urine RBC (0-5) /hpf Urine WBC (0-5) /hpf Urine Mucus (None) /hpf 10/14/19 10/15/19 10/15/19 Range/Units 19:52 07:13 09:02 WBC 9.8 (3.8-10.6) k/uL RBC 4.38 (4.30-5.90) m/uL Hgb 12.2 L (13.0-17.5) gm/dL Hct 38.8 L (39.0-53.0) % MCV 88.5 (80.0-100.0) fL MCH 27.9 (25.0-35.0) pg MCHC 31.5 (31.0-37.0) g/dL RDW 14.4 (11.5-15.5) % Plt Count 161 (150-450) k/uL Neutrophils % 79 % Lymphocytes % 12 % Monocytes % 6 % Eosinophils % 1 % Basophils % 0 % Neutrophils # 7.8 H (1.3-7.7) k/uL Lymphocytes # 1.2 (1.0-4.8) k/uL Monocytes # 0.6 (0-1.0) k/uL Eosinophils # 0.1 (0-0.7) k/uL Basophils # 0.0 (0-0.2) k/uL PT (9.0-12.0) sec INR (<1.2) APTT (22.0-30.0) sec Sodium (137-145) mmol/L Potassium (3.5-5.1) mmol/L Chloride (98-107) mmol/L Carbon Dioxide (22-30) mmol/L Anion Gap mmol/L BUN (9-20) mg/dL Creatinine (0.66-1.25) mg/dL Est GFR (CKD-EPI)AfAm (>60 ml/min/1.73 sqM) Est GFR (CKD-EPI)NonAf (>60 ml/min/1.73 sqM) Glucose (74-99) mg/dL POC Glucose (mg/dL) 173 H 120 H (75-99) mg/dL POC Glu Slurry Blender ID Nina Cho Jordan Plasma Lactic Acid [place] (0.7-2.0) mmol/L Calcium (8.4-10.2) mg/dL Total Bilirubin (0.2-1.3) mg/dL AST (17-59) U/L ALT (4-49) U/L Alkaline Phosphatase (38-126) U/L C-Reactive Protein (<10.0) mg/L Total Protein (6.3-8.2) g/dL Albumin (3.5-5.0) g/dL Procalcitonin (0.02-0.09) ng/mL TSH (0.465-4.680) mIU/L Urine Color Urine Appearance (Clear) Urine pH (5.0-8.0) Ur Specific [place] (1.001-1.035) Urine Protein (Negative) Urine Glucose (UA) (Negative) Urine Ketones (Negative) Urine Blood (Negative) Urine Nitrite (Negative) Urine Bilirubin (Negative) Urine Urobilinogen (<2.0) mg/dL Ur Leukocyte Esterase (Negative) Urine RBC (0-5) /hpf Urine WBC (0-5) /hpf Urine Mucus (None) /hpf 10/15/19 10/15/19 Range/Units 09:02 11:12 WBC (3.8-10.6) k/uL RBC (4.30-5.90) m/uL Hgb (13.0-17.5) gm/dL Hct (39.0-53.0) % MCV (80.0-100.0) fL MCH (25.0-35.0) pg MCHC (31.0-37.0) g/dL RDW (11.5-15.5) % Plt Count (150-450) k/uL Neutrophils % % Lymphocytes % % Monocytes % % Eosinophils % % Basophils % % Neutrophils # (1.3-7.7) k/uL Lymphocytes # (1.0-4.8) k/uL Monocytes # (0-1.0) k/uL Eosinophils # (0-0.7) k/uL Basophils # (0-0.2) k/uL PT (9.0-12.0) sec INR (<1.2) APTT (22.0-30.0) sec Sodium 140 (137-145) mmol/L Potassium 2.8 L (3.5-5.1) mmol/L Chloride 104 (98-107) mmol/L Carbon Dioxide 28 (22-30) mmol/L Anion Gap 8 mmol/L BUN 24 H (9-20) mg/dL Creatinine 1.64 H (0.66-1.25) mg/dL Est GFR (CKD-EPI)AfAm 47 (>60 ml/min/1.73 sqM) Est GFR (CKD-EPI)NonAf 40 (>60 ml/min/1.73 sqM) Glucose 282 H (74-99) mg/dL POC Glucose (mg/dL) 188 H (75-99) mg/dL POC Glu Slurry Blender ID Brenda Solorzano Plasma Lactic Acid [place] (0.7-2.0) mmol/L Calcium 8.4 (8.4-10.2) mg/dL Total Bilirubin (0.2-1.3) mg/dL AST (17-59) U/L ALT (4-49) U/L Alkaline Phosphatase (38-126) U/L C-Reactive Protein (<10.0) mg/L Total Protein (6.3-8.2) g/dL Albumin (3.5-5.0) g/dL Procalcitonin (0.02-0.09) ng/mL TSH (0.465-4.680) mIU/L Urine Color Urine Appearance (Clear) Urine pH (5.0-8.0) Ur Specific [place] (1.001-1.035) Urine Protein (Negative) Urine Glucose (UA) (Negative) Urine Ketones (Negative) Urine Blood (Negative) Urine Nitrite (Negative) Urine Bilirubin (Negative) Urine Urobilinogen (<2.0) mg/dL Ur Leukocyte Esterase (Negative) Urine RBC (0-5) /hpf Urine WBC (0-5) /hpf Urine Mucus (None) /hpf - EKG Data EKG Comments: EKG demonstrates a sinus rhythm with a ventricular rate of 83. NE interval 160. QRS 96. QTC of 470. No acute ST segment elevations depressions concerning for ischemic changes Disposition Clinical Impression: Fall, Back pain Disposition: ADMITTED IP TO THIS HOSP Condition: Stable Is patient prescribed a controlled substance at d/c from ED?: No Decision to Admit Reason: Admit from EC Decision Date: 10/14/19 Decision Time: 00:04
[2019-10-14] MEDS ORDERED: MORPHINE SULFATE 4 MG/ML SYRINGE IV PRN (00:04)
[2019-10-14] MEDS ORDERED: ACETAMINOPHEN TAB 325 MG TAB PO PRN (00:04)
[2019-10-14] MEDS ORDERED: NALOXONE 0.4 MG/ML 1 ML VIAL IV PRN (00:04)
[2019-10-14 02:58] LABS: Glucose,Whole Blood 101 mg/dL (75-99)
[2019-10-14 06:25] LABS: Glucose,Whole Blood 130 mg/dL (75-99)
[2019-10-14 06:54] LABS: Glucose,Whole Blood 132 mg/dL (75-99)
[2019-10-14] MEDS: hydrALAZINE HCL 25 MG TAB PO SCH ×2 (09:15→21:26)
[2019-10-14] MEDS: cloNIDine HCL 0.2 MG TAB PO SCH ×3 (09:15→22:40)
[2019-10-14] MEDS: ATENOLOL 25 MG TAB PO SCH (09:15)
[2019-10-14] MEDS: SACUBITRIL/VALSARTAN 97 MG-103 MG TABLET PO SCH ×2 (09:15→21:26)
[2019-10-14] MEDS: SENNOSIDES 8.6 MG TAB PO SCH (09:20)
[2019-10-14] MEDS: SODIUM CHLORIDE 0.9% 1,000 ML IV SCH ×2 (09:20→22:40)
[2019-10-14 09:55] LABS: C Reactive Protein 23.2 mg/L (<10.0)
[2019-10-14 11:55] LABS: Glucose,Whole Blood 179 mg/dL (75-99)
[2019-10-14] MEDS: POLYETHYLENE GLYCOL 3350 17 GM POWD.PACK PO SCH (12:40)
[2019-10-14 12:54] VITALS: RESP 18
--- NOTE | 2019-10-14 13:37 | P.CNOR ---
History of Present Illness - [facility] Consult date: 10/14/19 Requesting physician: Marcelle Cassidy Consult reason: low back pain (Acute low back pain status post post injury) History of present illness: History of present illness: Patient is a pleasant 74-year-old male who is seen and examined at the bedside for further evaluation in regards to intractable low back pain. Patient does have some difficulty at the bedside as he is able to answer questions but is extremely agitated and distressed. He appears diaphoretic. He talks about a fast heartbeat and a dry mouth. He is also quite concerned about his bank account as he states his Bank card was taken yesterday. Patient states he does not take drugs or alcohol in the outpatient setting. Patient was previously examined in the emergency department on 09/28/2019 for anxiety. At that time he had felt he had bugs on his skin. Patient was also in the hospital the previous day, 09/27/2019, for abdominal pain and complaining about bites. Dictation from the emergency department shows patient was transferred on 09/28/2019 to psychiatric Hospital due to depression, suicidal ideation, and psychosis. Patient states he was just in the hospitalist past and is now back in the hospital today. He states recently a tree fell on his back causing exacerbation of back pain. Emergency dictation states patient experienced a fall at home in the neighborhood heard him fall and called the emergency squad. Patient is a poor historian He has difficulty describing his pain and bilateral lower extremities. He states he has some leg pain but is vague in his description. He is able to move his legs independently in bed but has some difficulty following directions due to his agitation. He does have a history of previous lumbar surgery including fusion. He states his fusion was performed in 1998. Patient has a past medical history which includes diabetes, hypertension, and hyperlipidemia. Patient has been seen and examined by medicine this morning. Past Medical History Past Medical History: Diabetes Mellitus, Hyperlipidemia, Hypertension Additional Past Medical History / Comment(s): enlarged prostate. History of Any Multi-Drug Resistant Organisms: None Reported Past Surgical History: Back Surgery Additional Past Surgical History / Comment(s): left first and second finger amputation. Past Anesthesia/Blood Transfusion Reactions: No Reported Reaction Past Psychological History: Anxiety Smoking Status: Current every day smoker Past Alcohol Use History: None Reported Past Drug Use History: None Reported - Past Family History Brother(s) Family Medical History: Cancer Mother Family Medical History: Diabetes Mellitus, Renal Disease Medications and Allergies Home Medications Medication Instructions Recorded Confirmed Type Tamsulosin [Flomax] 0.8 mg PO HS 04/27/14 10/14/19 History clonazePAM [KlonoPIN] 1 mg PO BID 04/27/14 10/14/19 History buPROPion XL [Wellbutrin XL] 300 mg PO DAILY #7 tab.er.24h 10/18/18 10/14/19 Rx Aspirin EC [Ecotrin Low Dose] 81 mg PO DAILY 06/03/19 10/14/19 History Escitalopram Oxalate [Lexapro] 10 mg PO DAILY 06/03/19 10/14/19 History Isosorbide Mononitrate ER [Imdur] 30 mg PO DAILY #30 tab.er.24h 08/26/19 10/14/19 Rx Potassium Chloride ER [K-Dur 20] 20 meq PO DAILY #30 tab.er.prt 08/26/19 10/14/19 Rx cloNIDine HCL [Catapres] 0.2 mg PO TID #21 tab 08/26/19 10/14/19 Rx hydrALAZINE HCL [Apresoline] 25 mg PO BID #60 tab 08/26/19 10/14/19 Rx Atenolol [Tenormin] 25 mg PO DAILY #30 tab 08/27/19 10/14/19 Rx Cyclobenzaprine [Flexeril] 10 mg PO HS 09/01/19 10/14/19 History Furosemide [Lasix] 40 mg PO DAILY 09/01/19 10/14/19 History Multivitamins, Thera [Multivitamin 1 tab PO DAILY 09/01/19 10/14/19 History (formulary)] Nitroglycerin Sl Tabs [Nitrostat] 0.4 mg SUBLINGUAL Q5M PRN 09/01/19 10/14/19 History Sacubitril/Valsartan [Entresto 97 1 tab PO BID 09/01/19 10/14/19 History mg-103 mg Tablet] metFORMIN HCL 1,000 mg PO AC-BID 09/01/19 10/14/19 History Hydrocortisone Cream 1 applic TOPICAL TID #30 gm 09/27/19 10/14/19 Rx [Hydrocortisone 1% Cream] Simvastatin 40 mg PO DAILY 10/14/19 10/14/19 History Allergies Allergy/AdvReac Type Severity Reaction Status Date / Time iodine Allergy Rash/Hives Verified 10/14/19 09:15 Physical Examination Physical exam: Patient is awake and alert and answers questions appropriately but is significantly agitated and distracted and diaphoretic Vital signs stable Good chest excursion with deep inspiration and expiration Examination of lumbar spine reveals skin is intact with no abrasions, lacerations, or bruises; no erythema, purulence or signs of infection Evidence of a well-healed incision along the midline of the lumbar spine No significant pain with palpation of lumbar spine Patient does have some difficulty with lifting legs off the bed independently Dorsiflexion, plantarflexion, and extensor hallucis longus positive sustained bilaterally Evidence of a dressing over the left lower extremity/ankle No lower extremity hyperreflexia bilaterally No signs or symptoms of DVT; no calf pain No pain with internal and external rotation of the hips bilaterally Neurovascularly intact Patient does have some generalized tremor/shakiness of the bilateral upper extremities and lower extremities Results Pertinent studies: CT of the thoracic and lumbar spine taken on 10/13/2019: Ankylosing spondylosis of the mid to lower thoracic spine; evidence of previous lumbar fusion with hardware intact at L4-5 and L5-S1; no evidence of thoracic or lumbar compression fracture deformity; no thoracic paraspinal mass; 4.1 cm aneurysm of the ascending aorta - Labs Labs: Abnormal Lab Results - Last 24 Hours (Table) 10/13/19 10/13/19 10/13/19 Range/Units 19:50 19:50 19:50 RBC 4.23 L (4.30-5.90) m/uL Hgb 12.0 L (13.0-17.5) gm/dL Hct 36.6 L (39.0-53.0) % Neutrophils # 8.0 H (1.3-7.7) k/uL Lymphocytes # 0.8 L (1.0-4.8) k/uL APTT 18.2 L (22.0-30.0) sec Carbon Dioxide 21 L (22-30) mmol/L BUN 46 H (9-20) mg/dL Creatinine 2.26 H (0.66-1.25) mg/dL Glucose 142 H (74-99) mg/dL POC Glucose (mg/dL) (75-99) mg/dL C-Reactive Protein (<10.0) mg/L Urine Protein (Negative) Urine Ketones (Negative) Urine Blood (Negative) Urine Mucus (None) /hpf 10/13/19 10/13/19 10/14/19 Range/Units 19:50 21:21 02:55 RBC (4.30-5.90) m/uL Hgb (13.0-17.5) gm/dL Hct (39.0-53.0) % Neutrophils # (1.3-7.7) k/uL Lymphocytes # (1.0-4.8) k/uL APTT (22.0-30.0) sec Carbon Dioxide (22-30) mmol/L BUN (9-20) mg/dL Creatinine (0.66-1.25) mg/dL Glucose (74-99) mg/dL POC Glucose (mg/dL) 101 H (75-99) mg/dL C-Reactive Protein 23.2 H (<10.0) mg/L Urine Protein 1+ H (Negative) Urine Ketones 1+ H (Negative) Urine Blood Trace H (Negative) Urine Mucus Rare H (None) /hpf 10/14/19 10/14/19 10/14/19 Range/Units 06:23 06:52 11:53 RBC (4.30-5.90) m/uL Hgb (13.0-17.5) gm/dL Hct (39.0-53.0) % Neutrophils # (1.3-7.7) k/uL Lymphocytes # (1.0-4.8) k/uL APTT (22.0-30.0) sec Carbon Dioxide (22-30) mmol/L BUN (9-20) mg/dL Creatinine (0.66-1.25) mg/dL Glucose (74-99) mg/dL POC Glucose (mg/dL) 130 H 132 H 179 H (75-99) mg/dL C-Reactive Protein (<10.0) mg/L Urine Protein (Negative) Urine Ketones (Negative) Urine Blood (Negative) Urine Mucus (None) /hpf H & H 10/13/19 Range/Units 19:50 Hgb 12.0 L (13.0-17.5) gm/dL Hct 36.6 L (39.0-53.0) % Coagulation 12/16/19 Range/Units 19:50 INR 0.9 (<1.2) Result Diagrams: 10/13/19 19:50 10/13/19 19:50 Assessment and Plan Assessment: Assessment: Acute low back pain status post post fall versus tree falling on patient History of previous lumbosacral fusion L4-5 and L5-S1 with retained hardware Thoracic ankylosing spondylosis Poor historian Ascending aortic aneurysm measuring 4.1 cm Agitation Diaphoretic History of recent transfer to psychiatric Hospital for depression, suicidal ideation, and psychosis Diabetes Hypertension Hyperlipidemia (1) Intractable low back pain Current Visit: Yes Status: Acute Code(s): M54.5 - LOW BACK PAIN SNOMED Code(s): 82949628420122210 (2) Status post fall Current Visit: Yes Status: Acute Code(s): Z91.81 - HISTORY OF FALLING SNOMED Code(s): 789219802 (3) Ankylosing spondylitis Current Visit: Yes Status: Acute Code(s): M45.9 - ANKYLOSING SPONDYLITIS OF UNSPECIFIED SITES IN SPINE SNOMED Code(s): 5946989 (4) History of lumbar fusion Current Visit: Yes Status: Acute Code(s): Z98.1 - ARTHRODESIS STATUS SNOMED Code(s): 86731732222571 (5) Aortic aneurysm Current Visit: Yes Status: Acute Code(s): I71.9 - AORTIC ANEURYSM OF U NSPECIFIED SITE, WITHOUT RUPTURE SNOMED Code(s): 90779863 (6) Poor historian Current Visit: Yes Status: Acute Code(s): Z78.9 - OTHER SPECIFIED HEALTH STATUS SNOMED Code(s): 430302705 (7) Hyperlipidemia Current Visit: Yes Status: Acute Code(s): E78.5 - HYPERLIPIDEMIA, UNSPECIFIED SNOMED Code(s): 43027949 (8) Diabetes mellitus Current Visit: No Status: Acute Code(s): E11.9 - TYPE 2 DIABETES MELLITUS WITHOUT COMPLICATIONS SNOMED Code(s): 51930070 (9) Hypertension Current Visit: No Status: Acute Code(s): I10 - ESSENTIAL (PRIMARY) HYPERTENSION SNOMED Code(s): 24025620 Plan: Plan: 1. Patient has been discussed in detail Dr. José Do. Imaging has been reviewed by myself and Dr. José Do. Patient does have evidence of previous lumbosacral fusion with hardware remaining intact at L4-5 and L5-S1. Patient does have some ongoing acute low back pain status post injury. Patient is a very poor historian difficult to determine the exact cause of the exacerbation of his symptoms as he states a tree fell on him but ER documentation states patient sustained a fall and the neighbors heard the fall and contacted EMS to bring into the emergency department at that time. Patient is also significantly agitated in the room and somewhat diaphoretic. He is able to follow some commands but has difficulty while doing so. Patient is also focused on his bank account as he is concerned as he states his bank card was taken yesterday. Patient states his agitation is not related to drugs or alcohol. He denies taking any recreational drugs or alcohol in the outpatient setting. He does admit to anxiety during increase times of stress. At this time, we are not currently planning for surgical intervention regards to his lumbosacral spine. We feel he should continue conservative treatment should help improve his sympt oms. We will also filling needs further workup evaluation by medicine and possibly psychology. At this time, patient will be clear for discharge from an orthopedic spine standpoint. We'll plan have the patient follow-up with Leo Escobedo PA-C or Dr. José Do at [facility] in the outpatient setting on an as-needed basis. 2. Patient will continue be seen by medicine for his other medical diagnoses; nursing is aware of the patient's current state at the bedside and is planning to contact medicine for further evaluation; medicine appears to have placed consultation with psychology 3. Patient currently waiting for consultation by neurology for altered mental status as ordered by medicine Time with Patient: Greater than 30 (Including obtaining history, physical examination, reviewing of imaging, and dictation.)
--- NOTE | 2019-10-14 15:05 | P.CN ---
Psychiatric Consult - . Consult date: 10/14/19 Consult:: 10/14/19 14:50 Identification: Patient is a 74-year-old male who was brought to the emergency room after having 2 falls at home. Reason for Consult: Visual hallucinations History of Present Illness: Patient's chart was reviewed the patient was seen and interviewed in his room no family members were present. Patient states that he was at home, he lives in a senior citizens apartment complex by himself, he states he has no assistance at home and states that he does use a walker at home his legs gave out and he fell twice at home prior to admission. Patient states that he is had difficulties with his back and has had back surgery in 1997 after sustaining an injury to his back while working doing [employer]. Patient states that he does use a walker at home to ambulate. Patient also states that he was here in the emergency room earlier this month, and reviewing the records this was September 28 at which time the patient was somewhat despondent over how his life was going, stating that he had junk as far Social Security benefits of been decreased due to the increased cost of his Medicare and he had suicidal thoughts. Patient states he was transferred to an unknown hospital, per the record he was transferred to a [facility]. Patient states he's been treated for at least 15 years with both Klonopin 1 mg twice a day and Wellbutrin currently at 300 mg in the morning for depression and nerves. Patient is also currently taking Lexapro which he thinks was begun while he was in the [facility] unit. Patient states that he receives his medications from his primary care physician and states that he has never had any other inpatient psych admissions. Patient states that he was not seeing things at home but did begin seeing things here after receiving morphine for his pain. Patient states that earlier today he was seeing bugs and other things in his room, patient states that currently he is not seeing anything. Patient states that he is not currently suicidal and was anxious about a missing credit card but this was resolved by nursing assisting him in contacting someone at his bank to cancel the credit card. Patient states that he was feeling depressed prior to his admission to the psychiatric unit because he had to junk his car because he could not afford to repair it, his financial situation and the fact that he is here in [place] living in a senior citizen apartment. Patient previously had been living in the [place] area for most of his life and states that he only came here because a female friend encouraged him to move here with her. Patient does not endorse a history of psychotic symptoms, manic symptoms states that he's been treated for 15 years for depressive symptoms and anxiety. Patient states that at times he felt like he doesn't want to go on but has never made any attempts, states that he gets anxious in situations which he describes as problems with his nerves. Patient states that he is been eating and sleeping well at home. Past Psychiatric History: Patient states he had one recent admission to an inpatient psychiatric facility in September of this year he believes it may have been [facility] and states that he has no prior admissions and no prior suicide attempts patient states he's been treated by his primary care physician for the last 15 years with both Klonopin and Wellbutrin was recently started on Lexapro he thinks during his inpatient hospital stay. Patient's current medications at home or Wellbutrin 300 mg in the morning, Klonopin 1 mg twice a day and Lexapro 10 mg daily. Past Medical/Surgical History: Diabetes, hyperlipidemia, hypertension, enlarged prostate and status post back surgery Family History: Patient states he is unaware of any family history of any psychiatric disorders or alcohol or drug abuse and no completed suicides Social History: Patient was born in [place] and moved here with his family when he was 5 years of age. He had 3 brothers and 1 sister and states that 2 of his siblings are and he is unaware of the status of his other 2 siblings. Patient states that both of his parents are also . Patient has been twice and . He states he had one daughter who of cancer 3 years ago. Patient states that he obtained a GED, served in the [employer] in [place] was in the [employer] for 2 years. 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 Patient states that most recently he had been living with his mother until her in [place] and at that time he had no place to go as the house was sold. He states that it is this time when he moved to this area. Substance Use History: Patient states that he hasn't used any alcohol in the last 5 years, no history of drug use and he does use tobacco products Legal History: He denies Mental status: Appearance/Attitude: Patient is lying in a hospital bed in no acute distress and he makes eye contact and was cooperative Behavior: Patient does not exhibit any psychomotor agitation or retardation. Speech/Language: Patient's speech was spontaneous of normal volume and rhythm and he was coherent Thought Process: Patient's thought processes were goal-directed although he was a little preoccupied with concerns regarding a missing credit card there is no evidence of loose associations or flight of ideas Thought Content: Patient states that earlier today he was having visual hallucinations which she described as seeing bugs in the room, he denied any auditory hallucinations and no current visual hallucinations. Patient denied any current paranoid ideation and none was elicited and no delusions were elicited. Patient states that he was feeling more depressed when he was here in the emergency room and beginning of September when he was transferred to an inpatient psychiatric facility but states that he has not been feeling as depressed, was doing well at home until he fell twice prior to admission. Patient states that he was eating and sleeping well. Patient states that he does care for his own ADLs, stating he does his own cooking and cleaning. Suicidal/Homicidal Ideation: Patient denied any current suicidal or homicidal ideation Sensorium/Cognition: Patient was alert and oriented to person, place and time and his recent and remote memory are grossly intact Mood/Affect: Patient's mood was pleasant and his affect was appropriate Insight/Judgment: Patient's insight and judgment are fair Assessment: Patient does have a history or the 15 years being treated with Klonopin and Wellbutrin by his primary care physician for complaints of depr ession and anxiety, he was recently seen here in the emergency room at the beginning of September and transfer to an inpatient [facility] unit where Lexapro was also added to his medications. Patient states that he was doing fairly well at home, states that he had suicidal thoughts when he was here the beginning of September due to the way his life it turned out. Patient states that he had junk his car, his Social Security check was decreased and he was upset with the way his life it turned out. Patient states that he fell twice at home prior to coming into the hospital as the walker got away from him. Patient states that he was seeing things earlier today and last night after receiving morphine for pain. Patient lives in a senior citizens apartment and is been caring for his own ADLs. Patient does not endorse a history of any psychotic or manic symptoms and has been receiving psychiatric care from his primary care physician. It appears that the patient became delirious with visual hallucinations and per nursing staff some paranoid ideation after receiving morphine for his pain. Diagnosis: Major depressive disorder, recurrent, mild; anxiety disorder not otherwise specified Plan: Patient appears to have become delirious with visual hallucinations and some paranoid ideation after receiving morphine for pain, currently he denies having any visual hallucinations and did not report any paranoid ideation and none was elicited. Patient does have a history of depression and anxiety that has been treated for the last 15 years and was most recently admitted to an inpatient [facility] unit at the beginning of this month after presenting to the emergency room and reporting suicidal ideation. Patient has no history of suicide attempts and states that he is not currently suicidal. Patient's current psychiatric medications Klonopin 1 mg twice a day, on checking [facility], patient has been taking Klonopin at 1 mg twice a day for the last year. Patient is also been on Wellbutrin 300 mg in the morning and states that the Lexapro was begun when he was in the inpatient unit at 10 mg daily. Would recommend continuing the Klonopin 1 mg twice a day to prevent any withdrawal symptoms as patient has been on this medication for a number of years, will also continue the Wellbutrin 300 mg in the morning to target his depression and anxiety as well as discontinue the Lexapro. We will continue to follow the patient in the hospital to observe how he does on the Klonopin and Wellbutrin at this time the patient does not require inpatient psychiatric admission. Further questions or concerns please don't hesitate to contact me.
[2019-10-14] MEDS ORDERED: HYDROcodone/APAP 5-325MG 1 EACH TAB PO PRN (16:24)
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
[2019-10-14 17:08] LABS: Glucose,Whole Blood 155 mg/dL (75-99)
--- NOTE | 2019-10-14 19:14 | P.CNNES ---
History of Present Illness Consult date: 10/14/19 Reason for Consult: AMS Chief complaint: Back pain History of Present Illness: HISTORY OF PRESENT ILLNESS: Thank you for allowing me to evaluate Mr. Bernardo Boston. Mr. Boston is a 74 year-old man with PMhx of Diabetes, HLD, HTN, enlarged prostate, consulting Neurology for altered mental status. Patient is a good historian. Able to provide history about why the patient initially came to the hospital. He does however report seeing some bugs on his R arm, where there is significant bruising and some scabs from previous injury. Patient denies any recent sickness, fever, nausea, vomiting, headache, dizziness, double/blurry vision. Patient is sweating profusely and tremulous, patient reports that he's had these attacks many times since many years which led to his divorce. Patient was seen by psychiatry earlier today. Reports some numbness in his b/l feet when he tries to move his feet PAST MEDICAL HISTORY: Diabetes, HLD, HTN, enlarged prostate PAST SURGICAL HISTORY: Back surgery HOME MEDICATIONS: Tamsulosin, clonazepam, ASA, lexapro, cyclobenzaprine, furosemide, multivitamins, metformin, Entresto ALLERGIES: Iodine SOCIAL HISTORY: Current everyday smoker FAMILY HISTORY: Brother with cancer. Mother with diabetes and renal disease REVIEW OF SYSTEMS: The 14 systems are reviewed and no additional points are identified compared to the review of systems documented history and physical PHYSICAL EXAMINATION: VITAL SIGNS: T 98.4 HR 87 RR 18 BP 179/81 O2 sat 95% on RA GEN.: NAD but tremulous and with profuse sweating on his face, pleasant and cooperative HEENT: NCAT, sclera without icterus NECK: Supple SKIN AND EXTREMITIES: Warm to touch, no edema NEURO: MENTAL STATUS: Patient alert and oriented to self, place, time. Able to name the current president. Speech fluent, able to name and repeat, following all commands readily. No right and left disorientation, neglect. CRANIAL NERVES II THROUGH XII: II: Pupils are equal and reactive to light symmetrically. No afferent pupillary defect. Visual mcmullen are intact. III, IV, : No ptosis. Extraocular movements full. No nystagmus. V: Facial sensation intact from V1-3. VII. No clear facial asymmetry. VIII: Hearing intact to finger rub bilaterally. IX, X: Symmetric palate elevation. XI: Shoulder shrug intact. XII: Tongue midline without fasciculation or atrophy. MOTOR: Normal bulk/tone. No pronator drift or tremor. Strength is 5/5 throughout all 4 extremities. SENSORY: Intact to light touch pinprick in all 4 extremities. REFLEXES: 2+ throughout. Toes are downgoing. COORDINATION: Finger to nose intact. No dysmetria. GAIT: deferred DIAGNOSTIC TESTING: LABORATORY: WBC 9.5 Hgb 12.0 Platelet 169 Na 137 K 3.5 Cl 101 CO2 21 BUN 46 Cr 2.26 Glucose 142 AST 33 ALT 24 urinalysis negative nitrite/leukesterase IMAGING: CT Head w/o contrast 10/13/19: Negative CT of brain. Mild atrophy. No acute intracranial abnormality. L maxillary sinusitis Spondylotic changes in the cervical spine ASSESSMENT/RECOMMENDATIONS: 74 year-old man with PMhx of Diabetes, HLD, HTN, enlarged prostate, consulting Neurology for altered mental status. Patient with no focal deficits at this time. Patient's mental status intact, however, there's concern of possible psychiatric event, e.g. visual hallucinations. Psychiatric management per psychiatry. No additional inpatient work-up recommended at this time. Neurology will sign off at this time. Past Medical History Past Medical History: Diabetes Mellitus, Hyperlipidemia, Hypertension Additional Past Medical History / Comment(s): enlarged prostate. History of Any Multi-Drug Resistant Organisms: None Reported Past Surgical History: Back Surgery Additional Past Surgical History / Comment(s): left first and second finger amputation. Past Anesthesia/Blood Transfusion Reactions: No Reported Reaction Past Psychological History: Anxiety Smoking Status: Current every day smoker Past Alcohol Use History: None Reported Past Drug Use History: None Reported - Past Family History Brother(s) Family Medical History: Cancer Mother Family Medical History: Diabetes Mellitus, Renal Disease Medications and Allergies Home Medications Medication Instructions Recorded Confirmed Type Tamsulosin [Flomax] 0.8 mg PO HS 04/27/14 10/14/19 History clonazePAM [KlonoPIN] 1 mg PO BID 04/27/14 10/14/19 History buPROPion XL [Wellbutrin XL] 300 mg PO DAILY #7 tab.er.24h 10/18/18 10/14/19 Rx Aspirin EC [Ecotrin Low Dose] 81 mg PO DAILY 06/03/19 10/14/19 History Escitalopram Oxalate [Lexapro] 10 mg PO DAILY 06/03/19 10/14/19 History Isosorbide Mononitrate ER [Imdur] 30 mg PO DAILY #30 tab.er.24h 08/26/19 10/14/19 Rx Potassium Chloride ER [K-Dur 20] 20 meq PO DAILY #30 tab.er.prt 08/26/19 1 12/15/18 Rx cloNIDine HCL [Catapres] 0.2 mg PO TID #21 tab 08/26/19 10/14/19 Rx hydrALAZINE HCL [Apresoline] 25 mg PO BID #60 tab 08/26/19 10/14/19 Rx Atenolol [Tenormin] 25 mg PO DAILY #30 tab 08/27/19 10/14/19 Rx Cyclobenzaprine [Flexeril] 10 mg PO HS 09/01/19 10/14/19 History Furosemide [Lasix] 40 mg PO DAILY 09/01/19 10/14/19 History Multivitamins, Thera [Multivitamin 1 tab PO DAILY 09/01/19 10/14/19 History (formulary)] Nitroglycerin Sl Tabs [Nitrostat] 0.4 mg SUBLINGUAL Q5M PRN 09/01/19 10/14/19 History Sacubitril/Valsartan [Entresto 97 1 tab PO BID 09/01/19 10/14/19 History mg-103 mg Tablet] metFORMIN HCL 1,000 mg PO AC-BID 09/01/19 10/14/19 History Hydrocortisone Cream 1 applic TOPICAL TID #30 gm 09/27/19 10/14/19 Rx [Hydrocortisone 1% Cream] Simvastatin 40 mg PO DAILY 10/14/19 10/14/19 History Allergies Allergy/AdvReac Type Severity Reaction Status Date / Time iodine Allergy Rash/Hives Verified 10/14/19 09:15 Physical Examination - Vital Signs Vital Signs: Vital Signs Temp Pulse Pulse Resp BP BP Pulse Ox 10/14/19 12:53 98.4 F 87 18 179/81 95 10/14/19 05:42 98.3 F 79 21 164/74 94 L 10/14/19 01:20 98.3 F 83 19 163/75 96 10/13/19 23:55 95 23 147/92 97 10/13/19 23:00 98.6 F 99 18 139/81 95 10/13/19 22:00 98.2 F 79 14 139/81 99 10/13/19 21:00 98.6 F 78 17 132/93 96 10/13/19 20:14 79 14 133/80 95 10/13/19 19:54 98.3 F 85 18 152/79 97 Intake and Output 10/13/19 10/14/19 10/14/19 22:59 06:59 14:59 Intake Total 600 Output Total 400 Balance 200 Intake: Oral 600 Output: Urine 400 Other: Voiding Method Urinal Urinal # Voids 1 Weight 78.018 kg 72.8 kg Results - Laboratory Findings CBC and BMP: 10/13/19 19:50 10/13/19 19:50 Abnormal Lab Findings: Abnormal Labs 10/13/19 10/13/19 10/13/19 19:50 19:50 19:50 RBC 4.23 L Hgb 12.0 L Hct 36.6 L Neutrophils # 8.0 H Lymphocytes # 0.8 L APTT 18.2 L Carbon Dioxide 21 L BUN 46 H Creatinine 2.26 H Glucose 142 H POC Glucose (mg/dL) C-Reactive Protein Urine Protein Urine Ketones Urine Blood Urine Mucus 10/13/19 10/13/19 10/14/19 19:50 21:21 02:55 RBC Hgb Hct Neutrophils # Lymphocytes # APTT Carbon Dioxide BUN Creatinine Glucose POC Glucose (mg/dL) 101 H C-Reactive Protein 23.2 H Urine Protein 1+ H Urine Ketones 1+ H Urine Blood Trace H Urine Mucus Rare H 10/14/19 10/14/19 10/14/19 06:23 06:52 11:53 RBC Hgb Hct Neutrophils # Lymphocytes # APTT Carbon Dioxide BUN Creatinine Glucose POC Glucose (mg/dL) 130 H 132 H 179 H C-Reactive Protein Urine Protein Urine Ketones Urine Blood Urine Mucus
[2019-10-14 19:54] LABS: Glucose,Whole Blood 173 mg/dL (75-99)
[2019-10-14] MEDS: clonazePAM 1 MG TAB PO SCH (21:26)
[2019-10-14] MEDS: TAMSULOSIN 0.4 MG CAP.ER.24H PO SCH (21:26)
[2019-10-14] MEDS: CYCLOBENZAPRINE 10 MG TAB PO SCH (21:26)
--- NOTE | 2019-10-14 22:49 | CT ---
EXAMINATION TYPE: CT abdomen pelvis wo con DATE OF EXAM: 10/14/2019 COMPARISON: 09/27/2019 HISTORY: Left lower quadrant abdominal pain. CT DLP: 572 mGycm Automated exposure control for dose reduction was used. TECHNIQUE: Helical acquisition of images was performed from the lung bases through the pelvis. FINDINGS: Within the limitations of noncontrast CT the following observations are made. LUNG BASES: No significant abnormality is appreciated. LIVER/GB: No significant abnormality is appreciated. PANCREAS: No significant abnormality is seen. SPLEEN: No significant abnormality is seen. ADRENALS: No significant abnormality is seen. KIDNEYS: No significant abnormality is seen. FREE AIR: No free air is visualized RETROPERITONEAL ADENOPATHY: None visualized REPRODUCTIVE ORGANS: No significant abnormality is seen URINARY BLADDER: No significant abnormality is seen. PELVIC ADENOPATHY: None visualized. OSSEOUS STRUCTURES: No significant abnormality is seen. BOWEL: A prominent volume of pancolonic stool is visualized, down to and including the rectosigmoid. Otherwise, the bowel examination is negative. IMPRESSION: CONSTIPATION WITH SUSPECTED RECTAL IMPACTION.
[2019-10-15 07:15] LABS: Glucose,Whole Blood 120 mg/dL (75-99)
[2019-10-15] MEDS ORDERED: NA PHOS,M-B/NA PHOS,DI-BA 133 ML ENEMA RECTAL ONE (08:37)
[2019-10-15] MEDS: metroNIDAZOLE-NS PMX 500 MG in SALINE 1 100ML.BAG IVPB SCH ×3 (09:13→23:37)
[2019-10-15] MEDS: buPROPion XL 300 MG TAB.ER.24H PO SCH (09:17)
[2019-10-15] MEDS: ENOXAPARIN 40 MG/0.4 ML SYRINGE SQ SCH (09:17)
[2019-10-15] MEDS: SACUBITRIL/VALSARTAN 97 MG-103 MG TABLET PO SCH ×2 (09:18→21:32)
[2019-10-15] MEDS: ATENOLOL 25 MG TAB PO SCH (09:18)
[2019-10-15] MEDS: FUROSEMIDE 40 MG TAB PO SCH (09:18)
[2019-10-15] MEDS: hydrALAZINE HCL 25 MG TAB PO SCH ×2 (09:19→21:32)
[2019-10-15] MEDS: POLYETHYLENE GLYCOL 3350 17 GM POWD.PACK PO SCH ×2 (09:19→09:24)
[2019-10-15] MEDS: SENNOSIDES 8.6 MG TAB PO SCH (09:19)
[2019-10-15] MEDS: clonazePAM 1 MG TAB PO SCH ×2 (09:19→21:31)
[2019-10-15] MEDS: cloNIDine HCL 0.2 MG TAB PO SCH ×3 (09:19→22:44)
[2019-10-15 09:28] LABS: Basophils % (A) 0 %; Eosinophils # (A) 0.1 k/uL (0-0.7); Eosinophils % (A) 1 %; HCT 38.8 % (39.0-53.0); HGB 12.2 gm/dL (13.0-17.5); Lymphocytes # (A) 1.2 k/uL (1.0-4.8); Lymphocytes % (A) 12 %; MCH 27.9 pg (25.0-35.0); MCHC 31.5 g/dL (31.0-37.0); MCV 88.5 fL (80.0-100.0); Mean Platelet Volume 8.8; Monocytes # (A) 0.6 k/uL (0-1.0); Monocytes % (A) 6 %; Neutrophils # (A) 7.8 k/uL (1.3-7.7); Neutrophils % (A) 79 %; Platelet Count 161 k/uL (150-450); RBC 4.38 m/uL (4.30-5.90); RDW 14.4 % (11.5-15.5); WBC 9.8 k/uL (3.8-10.6)
[2019-10-15 09:34] LABS: Calcium 8.4 mg/dL (8.4-10.2); Potassium 2.8 mmol/L (3.5-5.1)
[2019-10-15 11:13] LABS: Glucose,Whole Blood 188 mg/dL (75-99)
--- NOTE | 2019-10-15 14:40 | P.PN ---
Progress Note - Text Progress Note Date: 10/15/19 Interval History: Patient is a 74-year-old male is being seen in follow-up to a consultation. Patient was seen in his room and he was sitting in his bed and stated that he is feeling much better that he had been eating better today was up walking with a walker and states that he is not seeing things or feels like bugs are crawling on them. Patient was able to recall that he had been admitted [place] on their inpatient psych unit at the beginning of this month and was started on Abilify and Lexapro however he never started the Abilify and thinks that he did start the Lexapro. Patient reported that he wasn't feeling depressed and had no suicidal thoughts at this time. Mental Status: Appearance/Attitude: Patient is sitting up in bed, made eye contact and was cooperative Behavior: Patient did not exhibit any psychomotor agitation or retardation Speech/Language: Patient's speech was spontaneous of normal volume and rhythm and he was coherent Thought Process: Patient's thought processes were goal-directed there is no evidence of loose association or flight of ideas Thought Content: Patient denied any auditory or visual hallucinations and no delusions or paranoid ideation were elicited nor any tactile hallucinations. Patient states that he was feeling much better not feeling as depressed he states that he was able to eat today has been up walking with a walker in the hallway and didn't sleep well last evening. Suicidal/Homicidal Ideation: Patient denied any current suicidal or homicidal ideation Sensorium/Cognition: Patient was alert and oriented to person, place and time and his recent and remote memory were grossly intact Mood/Affect: Patient's mood was pleasant and his affect was appropriate Insight/Judgment: Patient's insight and judgment are fair Assessment: Patient was much brighter today, stating that he does recall being admitted [place] and had been prescribed Abilify and Lexapro in addition to his Wellbutrin and Klonopin but never filled the prescription for Abilify. In speaking with nursing staff there reported that there was another episode of edward llucinations last evening however there is no evidence of auditory, visual or tactile hallucinations at this time. Patient has not received any further pain medications but did receive a dose of Flexeril last evening. Patient states that he has been eating better and has been up walking with a walker in the hallway. Plan: Patient should continue on Klonopin 1 mg twice a day and Wellbutrin 300 mg extended release in the morning I will not restart Abilify or Lexapro. Social work has made a referral for visiting nurse and for the [place] [facility]. At this time I will sign off the case as the patient does not require inpatient psychiatric care and he should continue on the Wellbutrin and Klonopin at the current doses at the time of discharge.
[2019-10-15] MEDS ORDERED: Potassium Replacement Protocol 1 EACH MISC MISCELLANE PRN (16:29)
[2019-10-15] MEDS ORDERED: Magnesium Replacement Protocol 1 EACH MISC MISCELLANE PRN (16:30)
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
[2019-10-15 17:10] LABS: Glucose,Whole Blood 210 mg/dL (75-99)
[2019-10-15] MEDS: SODIUM CHLORIDE 0.9% 1,000 ML IV SCH (17:53)
[2019-10-15 19:54] LABS: Glucose,Whole Blood 232 mg/dL (75-99)
[2019-10-15] MEDS: CYCLOBENZAPRINE 10 MG TAB PO SCH (21:32)
[2019-10-15] MEDS: TAMSULOSIN 0.4 MG CAP.ER.24H PO SCH (21:32)
[2019-10-16] MEDS: SODIUM CHLORIDE 0.9% 1,000 ML IV SCH ×2 (06:16→17:34)
[2019-10-16 07:01] LABS: Glucose,Whole Blood 127 mg/dL (75-99)
[2019-10-16] MEDS: POLYETHYLENE GLYCOL 3350 17 GM POWD.PACK PO SCH (07:28)
[2019-10-16] MEDS: SENNOSIDES 8.6 MG TAB PO SCH (07:29)
[2019-10-16] MEDS: buPROPion XL 300 MG TAB.ER.24H PO SCH (08:35)
[2019-10-16] MEDS: ATENOLOL 25 MG TAB PO SCH (08:35)
[2019-10-16] MEDS: SACUBITRIL/VALSARTAN 97 MG-103 MG TABLET PO SCH (08:35)
[2019-10-16] MEDS: clonazePAM 1 MG TAB PO SCH (08:35)
[2019-10-16] MEDS: metroNIDAZOLE-NS PMX 500 MG in SALINE 1 100ML.BAG IVPB SCH ×2 (08:36→17:35)
[2019-10-16] MEDS: FUROSEMIDE 40 MG TAB PO SCH (08:36)
[2019-10-16] MEDS: hydrALAZINE HCL 25 MG TAB PO SCH (08:36)
[2019-10-16] MEDS: ENOXAPARIN 40 MG/0.4 ML SYRINGE SQ SCH (08:36)
[2019-10-16] MEDS: cloNIDine HCL 0.2 MG TAB PO SCH ×2 (08:36→17:35)
[2019-10-16 08:41] LABS: Calcium 8.2 mg/dL (8.4-10.2); Magnesium 1.6 mg/dL (1.6-2.3); Potassium 2.9 mmol/L (3.5-5.1)
[2019-10-16 09:21] LABS: Basophils % (A) 0 %; Eosinophils # (A) 0.1 k/uL (0-0.7); Eosinophils % (A) 2 %; HCT 35.1 % (39.0-53.0); HGB 11.5 gm/dL (13.0-17.5); Lymphocytes # (A) 1.6 k/uL (1.0-4.8); Lymphocytes % (A) 19 %; MCH 28.7 pg (25.0-35.0); MCHC 32.6 g/dL (31.0-37.0); Mean Platelet Volume 8.2; Monocytes # (A) 0.5 k/uL (0-1.0); Monocytes % (A) 6 %; Neutrophils # (A) 5.9 k/uL (1.3-7.7); Neutrophils % (A) 71 %; Platelet Count 139 k/uL (150-450); RBC 3.99 m/uL (4.30-5.90); RDW 14.4 % (11.5-15.5); WBC 8.4 k/uL (3.8-10.6)
[2019-10-16] MEDS ORDERED: Potassium Replacement Protocol 1 EACH MISC MISCELLANE PRN (10:46)
[2019-10-16] MEDS: POTASSIUM CHLORIDE ER 20 MEQ TAB.ER PO SCH ×3 (11:13→13:37)
[2019-10-16 12:07] LABS: Glucose,Whole Blood 195 mg/dL (75-99)
[2019-10-16 12:17] VITALS: BP 146/72; TEMP 98.1
[2019-10-16 12:20] VITALS: PULSE 80
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
== END 2019-10-16 17:30 | disposition home health service (06) | DRG 641 ==
LOC: EC 19:36 → 5NMEDONC 10-14 00:06 → OBSVTOIN 10-15 15:30
PROVIDERS: ADMIT Family Medicine; ATTEND Family Medicine
DX: E87.6 Hypokalemia (principal); F33.9 Major depressive disorder, recurrent, unspecified; I13.0 Hypertensive heart and chronic kidney disease with heart failure and stage 1 through stage 4 chronic kidney disease, or unspecified chronic kidney disease; I50.32 Chronic diastolic (congestive) heart failure; R45.851 Suicidal ideations; E78.5 Hyperlipidemia, unspecified; F17.210 Nicotine dependence, cigarettes, uncomplicated; F29 Unspecified psychosis not due to a substance or known physiological condition; F41.9 Anxiety disorder, unspecified; E11.22 Type 2 diabetes mellitus with diabetic chronic kidney disease; I71.2 Thoracic aortic aneurysm, without rupture; K59.00 Constipation, unspecified; M45.9 Ankylosing spondylitis of unspecified sites in spine; N18.3 Chronic kidney disease, stage 3 (moderate); N40.0 Benign prostatic hyperplasia without lower urinary tract symptoms; W18.30XA Fall on same level, unspecified, initial encounter; Y92.009 Unspecified place in unspecified non-institutional (private) residence as the place of occurrence of the external cause; Z79.82 Long term (current) use of aspirin; Z79.84 Long term (current) use of oral hypoglycemic drugs; Z79.899 Other long term (current) drug therapy; Z80.9 Family history of malignant neoplasm, unspecified; Z83.3 Family history of diabetes mellitus; Z91.81 History of falling; Z98.1 Arthrodesis status; Z89.022 Acquired absence of left finger(s); Z60.2 Problems related to living alone; Z84.1 Family history of disorders of kidney and ureter
CPT/HCPCS: 36415; 70450; 71046; 72125; 72128; 72131; 72170; 74176; 80048; 80053; 81001; 83605; 83735; 84132; 84145; 84443; 85025; 85610; 85730; 86140; 93005; 96374; 99285

== ENCOUNTER 2019-10-19 05:03 | Emergency (ER) | payer MEDICARE ==
--- NOTE | 2019-10-19 05:14 | ED ---
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 Witnessed: no Place Fall Occurred: home Loss of Consciousness: none Prolonged Down Time?: no Symptoms Prior to Fall: none Location: head Severity: mild Quality: aching Context: tripped/slipped, history of frequent falls Associated Symptoms: headache <Osbaldo Mccoy - Last Filed: 10/19/19 05:47> <Sunday Velez - Last Filed: 10/19/19 07:57> - General Chief Complaint: Fall Stated Complaint: Fall Time Seen by Provider: 10/19/19 05:13 - Related Data Home Medications Medication Instructions Recorded Confirmed Tamsulosin [Flomax] 0.8 mg PO HS 04/27/14 10/14/19 clonazePAM [KlonoPIN] 1 mg PO BID 04/27/14 10/14/19 Aspirin EC [Ecotrin Low Dose] 81 mg PO DAILY 06/03/19 10/14/19 Cyclobenzaprine [Flexeril] 10 mg PO HS 09/01/19 10/14/19 Furosemide [Lasix] 40 mg PO DAILY 09/01/19 10/14/19 Multivitamins, Thera [Multivitamin 1 tab PO DAILY 09/01/19 10/14/19 (formulary)] Nitroglycerin Sl Tabs [Nitrostat] 0.4 mg SUBLINGUAL Q5M PRN 09/01/19 10/14/19 Sacubitril/Valsartan [Entresto 97 1 tab PO BID 09/01/19 10/14/19 mg-103 mg Tablet] metFORMIN HCL 1,000 mg PO AC-BID 09/01/19 10/14/19 Simvastatin 40 mg PO DAILY 10/14/19 10/14/19 Previous Rx's Medication Instructions Recorded buPROPion XL [Wellbutrin XL] 300 mg PO DAILY #7 tab.er.24h 10/18/18 Isosorbide Mononitrate ER [Imdur] 30 mg PO DAILY #30 tab.er.24h 08/26/19 Potassium Chloride ER [K-Dur 20] 20 meq PO DAILY #30 tab.er.prt 08/26/19 cloNIDine HCL [Catapres] 0.2 mg PO TID #21 tab 08/26/19 hydrALAZINE HCL [Apresoline] 25 mg PO BID #60 tab 08/26/19 Atenolol [Tenormin] 25 mg PO DAILY #30 tab 08/27/19 Hydrocortisone Cream 1 applic TOPICAL TID #30 gm 09/27/19 [Hydrocortisone 1% Cream] HYDROcodone/APAP 5-325MG [[place] 1 each PO Q6HR PRN #12 tab 10/16/19 5-325] Polyethylene Glycol 3350 [Miralax] 17 gm PO DAILY #30 powd.pack 10/16/19 Sennosides [Senokot] 8.6 mg PO DAILY #30 tab 10/16/19 Allergies Allergy/AdvReac Type Severity Reaction Status Date / Time iodine Allergy Rash/Hives Verified 10/19/19 05:14 morphine AdvReac Hallucinati Verified 10/19/19 05:14 ons Review of Systems ROS Other: All systems not noted in ROS Statement are negative. Constitutional: Denies: fever, chills, weakness Eyes: Denies: vision change Respiratory: Denies: cough, dyspnea Cardiovascular: Denies: chest pain, syncope Gastrointestinal: Denies: abdominal pain, vomiting, diarrhea Genitourinary: Denies: dysuria Musculoskeletal: Reports: back pain (chronic low back pain) Skin: Denies: rash Neurological: Reports: as per HPI, headache. Denies: weakness, numbness <Osbaldo Mccoy - Last Filed: 10/19/19 05:47> ROS Other: All systems not noted in ROS Statement are negative. <Sunday Velez - Last Filed: 10/19/19 07:57> ROS Statement: Those systems with pertinent positive or pertinent negative responses have been documented in the HPI. Past Medical History Past Medical History: Diabetes Mellitus, Hyperlipidemia, Hypertension Additional Past Medical History / Comment(s): enlarged prostate. History of Any Multi-Drug Resistant Organisms: None Reported Past Surgical History: Back Surgery Additional Past Surgical History / Comment(s): left first and second finger amputation. Past Anesthesia/Blood Transfusion Reactions: No Reported Reaction Past Psychological History: Anxiety Smoking Status: Current every day smoker Past Alcohol Use History: None Reported Past Drug Use History: None Reported - Past Family History Brother(s) Family Medical History: Cancer Mother Family Medical History: Diabetes Mellitus, Renal Disease <Osbaldo Mccoy - Last Filed: 10/19/19 05:47> General Exam General appearance: alert, in no apparent distress Eye exam: Present: normal appearance, PERRL, EOMI. Absent: scleral icterus, conjunctival injection ENT exam: Present: mucous membranes dry Neck exam: Present: other (cervical collar). Absent: tenderness Respiratory exam: Present: normal lung sounds bilaterally. Absent: respiratory distress, wheezes, rales, rhonchi, stridor, chest wall tenderness Cardiovascular Exam: Present: regular rate, normal rhythm, normal heart sounds. Absent: systolic murmur, diastolic murmur, rubs, gallop GI/Abdominal exam: Present: soft. Absent: distended, tenderness, guarding, rebound, rigid Extremities exam: Present: normal inspection, normal capillary refill. Absent: pedal edema, calf tenderness Back exam: Present: normal inspection. Absent: tenderness, CVA tenderness (R), CVA tenderness (L), vertebral tenderness Neurological exam: Present: alert, oriented X3, CN II-XII intact. Absent: motor sensory deficit Skin exam: Present: warm, dry, normal color. Absent: rash <Osbaldo Mccoy - Last Filed: 10/19/19 05:47> Course Vital Signs 10/19/19 10/19/19 05:11 06:22 Temperature 98.3 F Pulse Rate 102 H 78 Respiratory 16 18 Rate Blood Pressure 211/110 175/99 O2 Sat by Pulse 97 96 Oximetry Medical Decision Making - EKG Data -: EKG Interpreted by Me EKG shows normal: sinus rhythm, axis (normal), intervals (normal), QRS complexes (normal), ST-T waves (normal) Rate: normal (rate 96 bpm) <Osbaldo Mccoy - Last Filed: 10/19/19 05:47> - Lab Data Result diagrams: 10/19/19 05:14 10/19/19 05:14 - Radiology Data Radiology results: report reviewed (Computed tomography scan of the brain and cervical spine does not reveal any acute abnormality.), image reviewed (X-ray lumbar spine and right hip and pelvis shows degenerative changes without acute abnormality. Postoperative changes) <Sunday Velez - Last Filed: 10/19/19 07:57> - Medical Decision Making Patient endorsed to me with plan of discharge following x-ray results. Results reviewed. Patient reevaluated and updated. Patient is resting comfortably in bed. (Velez,Sunday) - Lab Data Lab Results 10/19/19 10/19/19 10/19/19 Range/Units 05:14 05:14 05:15 WBC 8.7 (3.8-10.6) k/uL RBC 3.92 L (4.30-5.90) m/uL Hgb 11.4 L (13.0-17.5) gm/dL Hct 34.2 L (39.0-53.0) % MCV 87.2 (80.0-100.0) fL MCH 29.2 (25.0-35.0) pg MCHC 33.5 (31.0-37.0) g/dL RDW 14.6 (11.5-15.5) % Plt Count 179 (150-450) k/uL Neutrophils % 76 % Lymphocytes % 15 % Monocytes % 5 % Eosinophils % 2 % Basophils % 1 % Neutrophils # 6.6 (1.3-7.7) k/uL Lymphocytes # 1.3 (1.0-4.8) k/uL Monocytes # 0.5 (0-1.0) k/uL Eosinophils # 0.1 (0-0.7) k/uL Basophils # 0.0 (0-0.2) k/uL Sodium 141 (137-145) mmol/L Potassium 3.5 (3.5-5.1) mmol/L Chloride 104 (98-107) mmol/L Carbon Dioxide 27 (22-30) mmol/L Anion Gap 10 mmol/L BUN 36 H (9-20) mg/dL Creatinine 1.83 H (0.66-1.25) mg/dL Est GFR (CKD-EPI)AfAm 41 (>60 ml/min/1.73 sqM) Est GFR (CKD-EPI)NonAf 35 (>60 ml/min/1.73 sqM) Glucose 129 H (74-99) mg/dL Calcium 9.1 (8.4-10.2) mg/dL Urine Color Light Yellow Urine Appearance Clear (Clear) Urine pH 6.5 (5.0-8.0) Ur Specific [place] 1.008 (1.001-1.035) Urine Protein 1+ H (Negative) Urine Glucose (UA) Negative (Negative) Urine Ketones Negative (Negative) Urine Blood Small H (Negative) Urine Nitrite Negative (Negative) Urine Bilirubin Negative (Negative) Urine Urobilinogen <2.0 (<2.0) mg/dL Ur Leukocyte Esterase Negative (Negative) Urine RBC 1 (0-5) /hpf Urine WBC <1 (0-5) /hpf Disposition <Osbaldo Mccoy - Last Filed: 10/19/19 05:47> Is patient prescribed a controlled substance at d/c from ED?: No Time of Disposition: 07:57 <Sunday Velez - Last Filed: 10/19/19 07:57> Clinical Impression: Fall, Head injury Disposition: HOME SELF-CARE Condition: Stable Instructions (If sedation given, give patient instructions): Fall Prevention (ED), Head Injury (ED) Additional Instructions: Please follow-up with primary care physician in the next couple days for recheck. Return for unable to walk, confusion, change in mental status, weakness, persistent nausea vomiting, worsening symptoms or other concerns. Referrals: Eden Cisneros DO [Primary Care Provider] - 1-2 days
[2019-10-19 06:03] LABS: Basophils % (A) 1 %; Eosinophils # (A) 0.1 k/uL (0-0.7); Eosinophils % (A) 2 %; HCT 34.2 % (39.0-53.0); HGB 11.4 gm/dL (13.0-17.5); Lymphocytes # (A) 1.3 k/uL (1.0-4.8); Lymphocytes % (A) 15 %; MCH 29.2 pg (25.0-35.0); MCHC 33.5 g/dL (31.0-37.0); MCV 87.2 fL (80.0-100.0); Mean Platelet Volume 8.7; Monocytes # (A) 0.5 k/uL (0-1.0); Monocytes % (A) 5 %; Neutrophils # (A) 6.6 k/uL (1.3-7.7); Neutrophils % (A) 76 %; Platelet Count 179 k/uL (150-450); RBC 3.92 m/uL (4.30-5.90); RDW 14.6 % (11.5-15.5); WBC 8.7 k/uL (3.8-10.6)
[2019-10-19 06:04] LABS: Appearance,Urine Clear (Clear); Bilirubin,Urine Negative (Negative); Blood,Urine Small (Negative); Color,Urine Light Yellow; Glucose,Urine (UA) Negative (Negative); Ketones,Urine Negative (Negative); Leukocyte Esterase,Urine Negative (Negative); Nitrite,Urine Negative (Negative); PH, Urine 6.5 (5.0-8.0); Protein,Urine 1+ (Negative); RBC,Urine 1 /hpf (0-5); Specific Gravity,Urine 1.008 (1.001-1.035); Urobilinogen,Urine <2.0 mg/dL (<2.0); WBC,Urine <1 /hpf (0-5)
[2019-10-19 06:09] LABS: Calcium 9.1 mg/dL (8.4-10.2); Potassium 3.5 mmol/L (3.5-5.1)
--- NOTE | 2019-10-19 06:18 | CT ---
EXAM: CT Head Without Intravenous Contrast CLINICAL HISTORY: ITS.REASON CT Reason: fall TECHNIQUE: Axial computed tomography images of the head/brain without intravenous contrast. CTDI is 45.2 mGy and DLP is 982.7 mGy-cm. This CT exam was performed using one or more of the following dose reduction techniques: automated exposure control, adjustment of the mA and/or kV according to patient size, and/or use of iterative reconstruction technique. COMPARISON: 10/13/2019. FINDINGS: Brain: No abnormal extra-axial collection. No hemorrhage. Midline shift: No midline shift or mass-effect. Midline anatomy is unremarkable. Ventricles: There is prominence of the ventricular system, cortical sulci, basilar cisterns compatible with age related atrophy. Bones/joints: Calvarium is unremarkable. No acute fracture. Soft tissues: Unremarkable. Sinuses: Severe chronic left maxillary sinusitis is noted. Mastoid air cells: Mastoid air cells are well pneumatized. IMPRESSION: No acute intracranial pathology. If there is concern for etiology such as early acute lacunar infarcts, magnetic resonance imaging of the brain with diffusion weighted sequences should be performed for follow-up. Severe chronic left maxillary sinusitis partially visualized. EXAM: CT Cervical Spine Without Intravenous Contrast CLINICAL HISTORY: ITS.REASON CT Reason: fall TECHNIQUE: Axial computed tomography images of the cervical spine without intravenous contrast. CTDI is 11.6 mGy and DLP is 302.8 mGy-cm. This CT exam was performed using one or more of the following dose reduction techniques: automated exposure control, adjustment of the mA and/or kV according to patient size, and/or use of iterative reconstruction technique. COMPARISON: None. FINDINGS: Vertebrae: There is straightening and reversal of the curvature of the cervical spine. The cervical and visualized thoracic vertebral bodies are maintained in height. No acute fracture. Discs/spinal canal/neural foramina: Mild to moderate degenerative disc disease of the cervical spine is noted. Transaxial images of the cervical spine reveal mild diffuse posterior facet arthropathy and minimal disc osteophyte complexes, most notably at the C5-6 and C6-7 levels. No spinal canal stenosis. Soft tissues: The soft tissues are grossly unremarkable. Lung apices: Lung apices are grossly unremarkable. Other findings: Spinous processes are unremarkable. IMPRESSION: Degenerative disc disease. No evidence of acute injury to the cervical spine. Straightening and reversal of the curvature of the cervical spine, paraspinal base of muscle spasm. Clinical correlation is advised.
[2019-10-19 06:22] VITALS: PULSE 78
[2019-10-19] MEDS ORDERED: HYDROcodone/APAP 5-325MG 1 EACH TAB PO STA (07:06)
--- NOTE | 2019-10-19 07:35 | XR ---
EXAMINATION TYPE: XR Hip RT and AP Pelvis , 3 VIEWS DATE OF EXAM ORDERED: 10/19/2019 HISTORY: fall. COMPARISON: None. FINDINGS: There has been an interpedicular fusion at L4, L5 and S1. There has been a previous L4-4-5 laminectomy. Osseous structures about the pelvis are otherwise normal. There are degenerative change s in both hips. No fracture is identified. There is vascular calcification identified. IMPRESSION: 1. NO ACUTE OSSEOUS LESION. 2. DEGENERATIVE CHANGE. 3. POSTSURGICAL CHANGE.
--- NOTE | 2019-10-19 07:37 | XR ---
EXAMINATION TYPE: XR lumbar spine 2 or 3V , 3 VIEWS DATE OF EXAM ORDERED: 10/19/2019 HISTORY: fall. COMPARISON: Previous study dated 10/18/2018. FINDINGS: There is been an interpedicular fusion at L4, L5 and S1. Spacing material is present at L4 -5. There is been a previous L4-5 laminectomy. There is hypertrophic spondylosis and spondylosis deformans throughout the spine. This is essentially unchanged from previous. No fractures are seen. Alignment is normal. There is diffuse degenerative d isc disease. IMPRESSION: 1. NO ACUTE OSSEOUS LESION. 2. DEGENERATIVE CHANGE. 3. POSTSURGICAL CHANGE.
[2019-10-19 08:35] VITALS: BP 158/74; RESP 16; TEMP 98
== END 2019-10-19 08:34 | disposition home or self-care (01) ==
LOC: EC 05:03
DX: S09.90XA Unspecified injury of head, initial encounter (principal); R29.6 Repeated falls; E11.9 Type 2 diabetes mellitus without complications; E78.5 Hyperlipidemia, unspecified; I10 Essential (primary) hypertension; N40.0 Benign prostatic hyperplasia without lower urinary tract symptoms; F41.9 Anxiety disorder, unspecified; F17.200 Nicotine dependence, unspecified, uncomplicated; Z88.5 Allergy status to narcotic agent; Z91.048 Other nonmedicinal substance allergy status; Z79.82 Long term (current) use of aspirin; Z79.84 Long term (current) use of oral hypoglycemic drugs; Z79.899 Other long term (current) drug therapy; W01.0XXA Fall on same level from slipping, tripping and stumbling without subsequent striking against object, initial encounter; Y92.009 Unspecified place in unspecified non-institutional (private) residence as the place of occurrence of the external cause
CPT/HCPCS: 36415; 70450; 72100; 72125; 73502; 80048; 81001; 85025; 93005; 99284

== ENCOUNTER 2019-10-20 20:19 | Emergency (ER) | payer MEDICARE ==
[2019-10-20 21:00] VITALS: RESP 18
--- NOTE | 2019-10-20 21:23 | ED ---
Psych HPI - General Chief Complaint: Psychiatric Symptoms Stated Complaint: mental health Time Seen by Provider: 10/20/19 20:56 Source: patient, police, EMS Mode of arrival: EMS - History of Present Illness Initial Comments: patient is 74-year-old man with history of previous depression who presents with complaint that he was having suicidal ideation tonight. The patient felt like cutting his neck. Patient called EMS and they arrived and found a knife lying on the bed next to him. MD Complaint: suicidal ideation, feels depressed Onset/Timin -: month(s) Associated Psychiatric Symptoms: depression History of same: Yes Quality: constant Improves With: none Worsens With: none Associated Symptoms: denies other symptoms - Related Data Home Medications Medication Instructions Recorded Confirmed Tamsulosin [Flomax] 0.8 mg PO HS 04/27/14 10/20/19 clonazePAM [KlonoPIN] 1 mg PO BID 04/27/14 10/20/19 Aspirin EC [Ecotrin Low Dose] 81 mg PO DAILY 06/03/19 10/20/19 Cyclobenzaprine [Flexeril] 10 mg PO HS 09/01/19 10/20/19 Furosemide [Lasix] 40 mg PO DAILY 09/01/19 10/20/19 Multivitamins, Thera [Multivitamin 1 tab PO DAILY 09/01/19 10/20/19 (formulary)] Nitroglycerin Sl Tabs [Nitrostat] 0.4 mg SUBLINGUAL Q5M PRN 09/01/19 10/20/19 Sacubitril/Valsartan [Entresto 97 1 tab PO BID 09/01/19 10/20/19 mg-103 mg Tablet] metFORMIN HCL 1,000 mg PO AC-BID 09/01/19 10/20/19 Simvastatin 40 mg PO DAILY 10/14/19 10/20/19 Previous Rx's Medication Instructions Recorded buPROPion XL [Wellbutrin XL] 300 mg PO DAILY #7 tab.er.24h 10/18/18 Isosorbide Mononitrate ER [Imdur] 30 mg PO DAILY #30 tab.er.24h 08/26/19 Potassium Chloride ER [K-Dur 20] 20 meq PO DAILY #30 tab.er.prt 08/26/19 cloNIDine HCL [Catapres] 0.2 mg PO TID #21 tab 08/26/19 hydrALAZINE HCL [Apresoline] 25 mg PO BID #60 tab 08/26/19 Atenolol [Tenormin] 25 mg PO DAILY #30 tab 08/27/19 Hydrocortisone Cream 1 applic TOPICAL TID #30 gm 09/27/19 [Hydrocortisone 1% Cream] HYDROcodone/APAP 5-325MG [[place] 1 each PO Q6HR PRN #12 tab 10/16/19 5-325] Polyethylene Glycol 3350 [Miralax] 17 gm PO DAILY #30 powd.pack 10/16/19 Sennosides [Senokot] 8.6 mg PO DAILY #30 tab 10/16/19 Allergies Allergy/AdvReac Type Severity Reaction Status Date / Time iodine Allergy Rash/Hives Verified 10/20/19 21:19 morphine AdvReac Hallucinati Verified 10/20/19 21:19 ons Review of Systems ROS Statement: Those systems with pertinent positive or pertinent negative responses have been documented in the HPI. ROS Other: All systems not noted in ROS Statement are negative. Constitutional: Denies: fever, chills Respiratory: Denies: cough, dyspnea Cardiovascular: Denies: chest pain, palpitations Gastrointestinal: Denies: abdominal pain, vomiting, diarrhea, constipation Genitourinary: Denies: dysuria, hematuria Musculoskeletal: Denies: back pain Skin: Denies: rash Psychiatric: Reports: depression, suicidal thoughts. Denies: auditory hallucinations, visual hallucinations, homicidal thoughts Past Medical History Past Medical History: Diabetes Mellitus, Hyperlipidemia, Hypertension Additional Past Medical History / Comment(s): enlarged prostate. History of Any Multi-Drug Resistant Organisms: None Reported Past Surgical History: Back Surgery Additional Past Surgical History / Comment(s): left first and second finger amputation. Past Anesthesia/Blood Transfusion Reactions: No Reported Reaction Past Psychological History: Anxiety Smoking Status: Current every day smoker Past Alcohol Use History: None Reported Past Drug Use History: None Reported - Past Family History Brother(s) Family Medical History: Cancer Mother Family Medical History: Diabetes Mellitus, Renal Disease General Exam Limitations: no limitations General appearance: alert, in no apparent distress Head exam: Present: atraumatic, normocephalic Eye exam: Present: normal appearance ENT exam: Present: mucous membranes dry Respiratory exam: Present: normal lung sounds bilaterally. Absent: respiratory distress, wheezes, rales, rhonchi, stridor Cardiovascular Exam: Present: regular rate, normal rhythm, normal heart sounds. Absent: systolic murmur, diastolic murmur, rubs, gallop GI/Abdominal exam: Present: soft. Absent: distended, tenderness, guarding, rebound, rigid Extremities exam: Present: normal inspection, normal capillary refill. Absent: pedal edema, calf tenderness Neurological exam: Present: alert, oriented X3. Absent: motor sensory deficit Psychiatric exam: Present: depressed, suicidal ideation. Absent: agitated, anxious, flat affect, manic, homicidal ideation Skin exam: Present: warm, dry, intact, normal color. Absent: rash Course Vital Signs 10/20/19 20:48 Temperature 98 F Pulse Rate 83 Respiratory 18 Rate Blood Pressure 118/66 O2 Sat by Pulse 100 Oximetry Medical Decision Making - Lab Data Lab Results 10/20/19 10/20/19 10/21/19 Range/Units 21:20 22:02 02:46 POC Glucose (mg/dL) 196 H 51 L (75-99) mg/dL POC Glu [employer] Inspector ID Azael Lara Robin Urine Opiates Screen Detected H (NotDetected) Ur Oxycodone Screen Not Detected (NotDetected) Urine Methadone Screen Not Detected (NotDetected) Ur Propoxyphene Screen Not Detected (NotDetected) Ur Barbiturates Screen Not Detected (NotDetected) U Tricyclic Antidepress Not Detected (NotDetected) Ur Phencyclidine Scrn Not Detected (NotDetected) Ur Amphetamines Screen Not Detected (NotDetected) U Methamphetamines Scrn Not Detected (NotDetected) U Benzodiazepines Scrn Not Detected (NotDetected) Urine Cocaine Screen Not Detected (NotDetected) U Marijuana (THC) Screen Not Detected (NotDetected) 10/21/19 Range/Units 02:47 POC Glucose (mg/dL) 56 L (75-99) mg/dL POC Glu [employer] Inspector Azael Irby Urine Opiates Screen (NotDetected) Ur Oxycodone Screen (NotDetected) Urine Methadone Screen (NotDetected) Ur Propoxyphene Screen (NotDetected) Ur Barbiturates Screen (NotDetected) U Tricyclic Antidepress (NotDetected) Ur Phencyclidine Scrn (NotDetected) Ur Amphetamines Screen (NotDetected) U Methamphetamines Scrn (NotDetected) U Benzodiazepines Scrn (NotDetected) Urine Cocaine Screen (NotDetected) U Marijuana (THC) Screen (NotDetected) Disposition Clinical Impression: Suicidal ideation, Mood disorder Disposition: ADMITTED IP TO THIS HOSP Condition: Fair Is patient prescribed a controlled substance at d/c from ED?: No Referrals: Eden Cisneros DO [Primary Care Provider] - 1-2 days
[2019-10-20 22:05] LABS: Glucose,Whole Blood 196 mg/dL (75-99)
[2019-10-20] MEDS ORDERED: INSULIN REGULAR 100 UNIT/ML VIAL SQ STA (22:06)
[2019-10-20 22:20] LABS: Cocaine Screen,Urine Not Detected (NotDetected); Phencyclidine Screen,Urine Not Detected (NotDetected); Urn Cannabinoid Scrn Not Detected (NotDetected)
[2019-10-20 22:21] LABS: Amphetamine Screen,Urine Not Detected (NotDetected); Barbiturate Screen,Urine Not Detected (NotDetected); Benzodiazepines Screen,Urine Not Detected (NotDetected); Methadone Screen, Urine Not Detected (NotDetected); Opiate Screen,Urine Detected (NotDetected); Oxycodone Screen, Urine Not Detected (NotDetected); Tricyclic Antidepressant,Urine Not Detected (NotDetected)
[2019-10-21 02:49] LABS: Glucose,Whole Blood 51 mg/dL (75-99)
[2019-10-21 02:49] LABS: Glucose,Whole Blood 56 mg/dL (75-99)
[2019-10-21 03:09] LABS: Glucose,Whole Blood 78 mg/dL (75-99)
[2019-10-21 03:49] LABS: Glucose,Whole Blood 154 mg/dL (75-99)
[2019-10-21 05:01] LABS: Basophils % (A) 0 %; Eosinophils # (A) 0.1 k/uL (0-0.7); Eosinophils % (A) 1 %; HCT 32.3 % (39.0-53.0); HGB 10.9 gm/dL (13.0-17.5); Lymphocytes % (A) 10 %; MCH 28.9 pg (25.0-35.0); MCHC 33.8 g/dL (31.0-37.0); MCV 85.6 fL (80.0-100.0); Mean Platelet Volume 8.6; Monocytes # (A) 0.5 k/uL (0-1.0); Monocytes % (A) 4 %; Neutrophils # (A) 8.7 k/uL (1.3-7.7); Neutrophils % (A) 84 %; Platelet Count 216 k/uL (150-450); RBC 3.77 m/uL (4.30-5.90); RDW 14.8 % (11.5-15.5); WBC 10.5 k/uL (3.8-10.6)
[2019-10-21 05:10] LABS: Calcium 9.1 mg/dL (8.4-10.2); Potassium 3.2 mmol/L (3.5-5.1)
[2019-10-21 06:27] LABS: Glucose,Whole Blood 181 mg/dL (75-99)
[2019-10-21 07:43] LABS: Glucose,Whole Blood 160 mg/dL (75-99)
[2019-10-21] MEDS ORDERED: POTASSIUM CHLORIDE ER 20 MEQ TAB.ER PO STA (08:41)
[2019-10-21 09:03] VITALS: TEMP 97.6
[2019-10-21] MEDS ORDERED: HYDROcodone/APAP 5-325MG 1 EACH TAB PO PRN (09:05)
[2019-10-21] MEDS ORDERED: ATENOLOL 25 MG TAB PO SCH (09:45)
[2019-10-21] MEDS ORDERED: cloNIDine HCL 0.2 MG TAB PO SCH (09:45)
[2019-10-21] MEDS ORDERED: clonazePAM 1 MG TAB PO SCH (09:45)
[2019-10-21] MEDS ORDERED: hydrALAZINE HCL 25 MG TAB PO SCH (09:45)
[2019-10-21] MEDS ORDERED: buPROPion XL 300 MG TAB.ER.24H PO SCH (09:45)
[2019-10-21] MEDS: FUROSEMIDE 40 MG TAB PO SCH ×2 (10:04→10:05)
[2019-10-21] MEDS: ISOSORBIDE MONONITRATE ER 30 MG TAB.ER.24H PO SCH ×2 (10:06→10:10)
[2019-10-21 10:16] VITALS: BP 147/71; PULSE 80
[2019-10-21] MEDS ORDERED: NON FORMULARY DRUG (Metformin Hcl [Metformin Hcl] 1,000 MG) PO SCH (17:30)
[2019-10-21] MEDS ORDERED: CYCLOBENZAPRINE 10 MG TAB PO SCH (21:00)
[2019-10-22] MEDS ORDERED: ASPIRIN 81 MG PO SCH (09:00)
== END 2019-10-21 12:45 ==
LOC: EC 20:19
DX: F32.9 Major depressive disorder, single episode, unspecified (principal); R45.851 Suicidal ideations; E11.9 Type 2 diabetes mellitus without complications; E78.5 Hyperlipidemia, unspecified; I10 Essential (primary) hypertension; N40.0 Benign prostatic hyperplasia without lower urinary tract symptoms; F17.200 Nicotine dependence, unspecified, uncomplicated; Z79.82 Long term (current) use of aspirin; Z79.84 Long term (current) use of oral hypoglycemic drugs; Z79.899 Other long term (current) drug therapy; Z91.048 Other nonmedicinal substance allergy status; Z88.5 Allergy status to narcotic agent; Z53.29 Procedure and treatment not carried out because of patient's decision for other reasons
CPT/HCPCS: 36415; 80048; 80306; 82075; 85025; 99285

== ENCOUNTER 2019-12-24 05:52 | Inpatient (IN) | payer MEDICARE ==
[2019-12-24] MEDS ORDERED: NITROGLYCERIN-D5W PMX 250 ML IV ONE (05:54)
[2019-12-24] MEDS ORDERED: NITROGLYCERIN-D5W PMX 50 MG in DEXTROSE/WATER 1 250ML.BAG IV STA (06:02)
[2019-12-24 06:13] LABS: Anisocytosis Slight; Basophils % (A) 0 %; Eosinophils # (A) 0.1 k/uL (0-0.7); Eosinophils % (A) 1 %; HCT 29.3 % (39.0-53.0); Hypochromasia Marked; Lymphocytes # (A) 1.5 k/uL (1.0-4.8); Lymphocytes % (A) 12 %; MCH 28.2 pg (25.0-35.0); MCHC 30.6 g/dL (31.0-37.0); Mean Platelet Volume 9.9; Monocytes # (A) 0.4 k/uL (0-1.0); Monocytes % (A) 4 %; Neutrophils # (A) 10.2 k/uL (1.3-7.7); Neutrophils % (A) 82 %; Platelet Count 147 k/uL (150-450); RBC 3.18 m/uL (4.30-5.90); RDW 17.4 % (11.5-15.5); WBC 12.5 k/uL (3.8-10.6)
[2019-12-24 06:18] LABS: VBG PH 7.34 (7.31-7.41)
[2019-12-24 06:20] LABS: MCV 92.1 fL (80.0-100.0)
[2019-12-24 06:28] LABS: Albumin 3.5 g/dL (3.5-5.0); Calcium 8.3 mg/dL (8.4-10.2); Total Bilirubin 0.8 mg/dL (0.2-1.3); Total Protein 6.2 g/dL (6.3-8.2)
[2019-12-24 06:36] LABS: INR 0.9 (<1.2); Prothrombin Time 9.6 sec (9.0-12.0)
[2019-12-24 06:37] LABS: Potassium 4.5 mmol/L (3.5-5.1)
[2019-12-24 06:40] LABS: Partial Thromboplastin Time 20.9 sec (22.0-30.0)
[2019-12-24] MEDS ORDERED: INSULIN REGULAR 100 UNIT/ML VIAL SQ STA (06:41)
--- NOTE | 2019-12-24 07:23 | XR ---
EXAM: XR Chest, 1 View CLINICAL HISTORY: ITS.REASON XR Reason: dyspnea TECHNIQUE: Frontal view of the chest. COMPARISON: No relevant prior studies available. FINDINGS: Lungs: Mixed interstitial/alveolar disease bilaterally. Pleural space: Moderate-sized pleural effusions with adjacent passive atelectasis. No pneumothorax. Heart: Cardiomegaly. Mediastinum: Unremarkable. Bones/joints: Unremarkable. Vasculature: Vascular congestion of the lungs. Lymph nodes: Bilateral hilar fullness may represent reactive adenopathy. Attention on follow-up. IMPRESSION: Findings are most compatible with congestive heart failure exacerbation.
[2019-12-24] MEDS ORDERED: NITROGLYCERIN SL TABS 0.4 MG TAB SUBLINGUAL PRN (07:29)
--- NOTE | 2019-12-24 07:39 | ED ---
SOB HPI - General Chief Complaint: Shortness of Breath Stated Complaint: JAS Time Seen by Provider: 12/24/19 06:01 Source: patient, RN/MD, EMS Mode of arrival: EMS Limitations: physical limitation (Severe dyspnea) - History of Present Illness Initial Comments: This patient is a 74-year-old man brought by ambulance from his long-term care facility. Staff had called the ambulance after finding him to be severely short of breath this morning. The patient is not able to give more than 1 word answers due to severe dyspnea. He denies chest pain. Patient acknowledges shortness of breath. Denies cough and fever. MD Complaint: shortness of breath, cough -: hour(s) Consistency: constant Improves With: oxygen, upright position Worsens With: lying flat Known History Of: COPD, congestive heart failure Associated Symptoms: denies other symptoms Treatments Prior to Arrival: oxygen, NIPPV - Related Data Home Medications Medication Instructions Recorded Confirmed Tamsulosin [Flomax] 0.8 mg PO HS 04/27/14 12/24/19 Furosemide [Lasix] 40 mg PO BID@0600,1400 09/01/19 12/24/19 Multivitamins, Thera [Multivitamin 1 tab PO DAILY 09/01/19 12/24/19 (formulary)] Nitroglycerin Sl Tabs [Nitrostat] 0.4 mg SUBLINGUAL Q5M PRN 09/01/19 12/24/19 Simvastatin 40 mg PO HS 10/14/19 12/24/19 Albuterol Sulfate [Ventolin HFA] 1 - 2 puff INHALATION RT-Q6H PRN 12/24/19 12/24/19 Escitalopram [Lexapro] 5 mg PO DAILY 12/24/19 12/24/19 Linagliptin [Tradjenta] 5 mg PO DAILY 12/24/19 12/24/19 Lisinopril [Prinivil] 10 mg PO DAILY 12/24/19 12/24/19 Metoprolol Tartrate [Lopressor] 25 mg PO BID 12/24/19 12/24/19 Potassium Chloride ER [K-Dur 20] 20 meq PO BID 12/24/19 12/24/19 Propylene Glycol/Peg 400/Pf 1 drop BOTH EYES DAILY PRN 12/24/19 12/24/19 [Systane 0.3-0.4% Eye Drop] Sennosides-Docusate Sodium 1 tab PO DAILY 12/24/19 12/24/19 [Senokot-S] buPROPion XL [Wellbutrin XL] 150 mg PO DAILY 12/24/19 12/24/19 hydrALAZINE HCL [Apresoline] 25 mg PO TID@0600,1400,2100 12/24/19 12/24/19 Previous Rx's Medication Instructions Recorded Isosorbide Mononitrate ER [Imdur] 30 mg PO DAILY #30 tab.er.24h 08/26/19 Aspirin 81 mg PO DAILY chew 12/26/19 Allergies Allergy/AdvReac Type Severity Reaction Status Date / Time iodine Allergy Rash/Hives Verified 12/24/19 07:09 morphine AdvReac Hallucinati Verified 12/24/19 07:09 ons Review of Systems ROS Statement: Those systems with pertinent positive or pertinent negative responses have been documented in the HPI. ROS Other: All systems not noted in ROS Statement are negative. Limitations: ROS unobtainable due to patients medical condition Constitutional: Denies: fever Respiratory: Reports: dyspnea Cardiovascular: Denies: chest pain Gastrointestinal: Denies: abdominal pain Past Medical History Past Medical History: Diabetes Mellitus, Hyperlipidemia, Hypertension Additional Past Medical History / Comment(s): enlarged prostate. History of Any Multi-Drug Resistant Organisms: None Reported Past Surgical History: Back Surgery Additional Past Surgical History / Comment(s): left first and second finger amputation. Past Anesthesia/Blood Transfusion Reactions: No Reported Reaction Past Psychological History: Anxiety Smoking Status: Current every day smoker Past Alcohol Use History: None Reported Past Drug Use History: None Reported - Past Family History Brother(s) Family Medical History: Cancer Mother Family Medical History: Diabetes Mellitus, Renal Disease General Exam Limitations: no limitations General appearance: alert, in distress Head exam: Present: atraumatic, normocephalic Eye exam: Present: normal appearance. Absent: scleral icterus, conjunctival injection ENT exam: Present: normal oropharynx Respiratory exam: Present: respiratory distress, rales, accessory muscle use. Absent: wheezes, rhonchi, stridor, decreased breath sounds, prolonged expiratory Cardiovascular Exam: Present: tachycardia, normal heart sounds. Absent: systolic murmur, diastolic murmur, rubs, gallop GI/Abdominal exam: Present: soft. Absent: distended, tenderness, guarding, rebound, rigid, mass Extremities exam: Present: normal inspection, normal capillary refill. Absent: pedal edema, calf tenderness Back exam: Present: normal inspection. Absent: CVA tenderness (R), CVA tenderness (L) Neurological exam: Present: alert Skin exam: Present: intact, diaphoretic, mottled. Absent: rash Course Vital Signs 12/24/19 12/24/19 12/24/19 05:53 06:01 06:22 Temperature 98.1 F Pulse Rate 115 H 98 Pulse Rate [ Right Pulse Oximetery] Respiratory 35 H 34 H 28 H Rate Blood Pressure 172/99 155/77 Blood Pressure [Left Arm] O2 Sat by Pulse 100 100 Oximetry 12/24/19 12/24/19 12/24/19 06:25 06:30 06:35 Temperature Pulse Rate 96 95 101 H Pulse Rate [ Right Pulse Oximetery] Respiratory 27 H 25 H 20 Rate Blood Pressure 155/77 142/90 140/76 Blood Pressure [Left Arm] O2 Sat by Pulse 100 100 100 Oximetry 12/24/19 12/24/19 12/24/19 06:40 06:45 06:50 Temperature Pulse Rate 99 95 93 Pulse Rate [ Right Pulse Oximetery] Respiratory 28 H 24 20 Rate Blood Pressure 142/65 137/68 124/63 Blood Pressure [Left Arm] O2 Sat by Pulse 100 100 95 Oximetry 12/24/19 12/24/19 12/24/19 06:55 07:30 08:00 Temperature 98.4 F Pulse Rate 92 82 79 Pulse Rate [ Right Pulse Oximetery] Respiratory 21 20 20 Rate Blood Pressure 111/73 119/67 112/62 Blood Pressure [Left Arm] O2 Sat by Pulse 95 98 98 Oximetry 12/24/19 12/24/19 12/24/19 08:40 09:00 09:25 Temperature 98.5 F Pulse Rate 78 79 84 Pulse Rate [ Right Pulse Oximetery] Respiratory 20 20 20 Rate Blood Pressure 110/67 116/66 132/66 Blood Pressure [Left Arm] O2 Sat by Pulse 98 98 100 Oximetry 12/24/19 12/24/19 12/24/19 09:45 10:15 10:30 Temperature 98.3 F Pulse Rate 78 Pulse Rate [ 101 H Right Pulse Oximetery] Respiratory 20 Rate Blood Pressure 128/66 Blood Pressure 143/83 [Left Arm] O2 Sat by Pulse 70 L 93 L Oximetry Medical Decision Making - Medical Decision Making Patient is 74-year-old man in with severe dyspnea. He is started on BiPAP here and also administered IV nitroglycerin. The patient's markedly improving with treatment. Vital signs markedly improved and we are able to decrease patient's FiO2. Admitting physician is paged, he had not been able to reach at time of shift change however. Case discussed with Dr. Ramos are as patient is on BiPAP at time of admission. Consult also for cardiology. - Lab Data Result diagrams: 12/24/19 05:50 12/27/19 06:03 Lab Results 12/24/19 12/24/19 12/24/19 Range/Units 05:50 06:00 06:00 WBC 12.5 H (3.8-10.6) k/uL RBC 3.18 L (4.30-5.90) m/uL Hgb 9.0 L D (13.0-17.5) gm/dL Hct 29.3 L (39.0-53.0) % MCV 92.1 D (80.0-100.0) fL MCH 28.2 (25.0-35.0) pg MCHC 30.6 L (31.0-37.0) g/dL RDW 17.4 H (11.5-15.5) % Plt Count 147 L (150-450) k/uL Neutrophils % 82 % Lymphocytes % 12 % Monocytes % 4 % Eosinophils % 1 % Basophils % 0 % Neutrophils # 10.2 H (1.3-7.7) k/uL Lymphocytes # 1.5 (1.0-4.8) k/uL Monocytes # 0.4 (0-1.0) k/uL Eosinophils # 0.1 (0-0.7) k/uL Basophils # 0.0 (0-0.2) k/uL Hypochromasia Marked Anisocytosis Slight PT (9.0-12.0) sec INR (<1.2) APTT (22.0-30.0) sec VBG pH (7.31-7.41) VBG pCO2 (37-51) mmHg VBG HCO3 (24-28) mmol/L Sodium 137 (137-145) mmol/L Potassium 4.5 (3.5-5.1) mmol/L Chloride 99 (98-107) mmol/L Carbon Dioxide 29 (22-30) mmol/L Anion Gap 9 mmol/L BUN 38 H (9-20) mg/dL Creatinine 1.92 H (0.66-1.25) mg/dL Est GFR (CKD-EPI)AfAm 39 (>60 ml/min/1.73 sqM) Est GFR (CKD-EPI)NonAf 33 (>60 ml/min/1.73 sqM) Glucose 303 H (74-99) mg/dL Lactic Ac Sepsis Rflx Plasma Lactic Acid Galen 2.1 H* (0.7-2.0) mmol/L Calcium 8.3 L (8.4-10.2) mg/dL Total Bilirubin 0.8 (0.2-1.3) mg/dL AST 53 (17-59) U/L ALT 49 (4-49) U/L Alkaline Phosphatase 95 (38-126) U/L Troponin I (0.000-0.034) ng/mL NT-Pro-B Natriuret Pep pg/mL Total Protein 6.2 L (6.3-8.2) g/dL Albumin 3.5 (3.5-5.0) g/dL 12/24/19 12/24/19 12/24/19 Range/Units 06:00 06:00 06:00 WBC (3.8-10.6) k/uL RBC (4.30-5.90) m/uL Hgb (13.0-17.5) gm/dL Hct (39.0-53.0) % MCV (80.0-100.0) fL MCH (25.0-35.0) pg MCHC (31.0-37.0) g/dL RDW (11.5-15.5) % Plt Count (150-450) k/uL Neutrophils % % Lymphocytes % % Monocytes % % Eosinophils % % Basophils % % Neutrophils # (1.3-7.7) k/uL Lymphocytes # (1.0-4.8) k/uL Monocytes # (0-1.0) k/uL Eosinophils # (0-0.7) k/uL Basophils # (0-0.2) k/uL Hypochromasia Anisocytosis PT 9.6 (9.0-12.0) sec INR 0.9 (<1.2) APTT 20.9 L (22.0-30.0) sec VBG pH (7.31-7.41) VBG pCO2 (37-51) mmHg VBG HCO3 (24-28) mmol/L Sodium (137-145) mmol/L Potassium (3.5-5.1) mmol/L Chloride (98-107) mmol/L Carbon Dioxide (22-30) mmol/L Anion Gap mmol/L BUN (9-20) mg/dL Creatinine (0.66-1.25) mg/dL Est GFR (CKD-EPI)AfAm (>60 ml/min/1.73 sqM) Est GFR (CKD-EPI)NonAf (>60 ml/min/1.73 sqM) Glucose (74-99) mg/dL Lactic Ac Sepsis Rflx Plasma Lactic Acid Galen (0.7-2.0) mmol/L Calcium (8.4-10.2) mg/dL Total Bilirubin (0.2-1.3) mg/dL AST (17-59) U/L ALT (4-49) U/L Alkaline Phosphatase (38-126) U/L Troponin I 0.029 (0.000-0.034) ng/mL NT-Pro-B Natriuret Pep 7370 pg/mL Total Protein (6.3-8.2) g/dL Albumin (3.5-5.0) g/dL 12/24/19 12/24/19 Range/Units 06:00 06:37 WBC (3.8-10.6) k/uL RBC (4.30-5.90) m/uL Hgb (13.0-17.5) gm/dL Hct (39.0-53.0) % MCV (80.0-100.0) fL MCH (25.0-35.0) pg MCHC (31.0-37.0) g/dL RDW (11.5-15.5) % Plt Count (150-450) k/uL Neutrophils % % Lymphocytes % % Monocytes % % Eosinophils % % Basophils % % Neutrophils # (1.3-7.7) k/uL Lymphocytes # (1.0-4.8) k/uL Monocytes # (0-1.0) k/uL Eosinophils # (0-0.7) k/uL Basophils # (0-0.2) k/uL Hypochromasia Anisocytosis PT (9.0-12.0) sec INR (<1.2) APTT (22.0-30.0) sec VBG pH 7.34 (7.31-7.41) VBG pCO2 59 H (37-51) mmHg VBG HCO3 31 H (24-28) mmol/L Sodium (137-145) mmol/L Potassium (3.5-5.1) mmol/L Chloride (98-107) mmol/L Carbon Dioxide (22-30) mmol/L Anion Gap mmol/L BUN (9-20) mg/dL Creatinine (0.66-1.25) mg/dL Est GFR (CKD-EPI)AfAm (>60 ml/min/1.73 sqM) Est GFR (CKD-EPI)NonAf (>60 ml/min/1.73 sqM) Glucose (74-99) mg/dL Lactic Ac Sepsis Rflx Y Plasma Lactic Acid Galen (0.7-2.0) mmol/L Calcium (8.4-10.2) mg/dL Total Bilirubin (0.2-1.3) mg/dL AST (17-59) U/L ALT (4-49) U/L Alkaline Phosphatase (38-126) U/L Troponin I (0.000-0.034) ng/mL NT-Pro-B Natriuret Pep pg/mL Total Protein (6.3-8.2) g/dL Albumin (3.5-5.0) g/dL Critical Care Time Critical Care Time: Yes (35 minutes) Disposition Clinical Impression: Hypertensive emergency, CHF (congestive heart failure), Elevated troponin I level Disposition: ADMITTED IP TO THIS [facility] Condition: Critical Is patient prescribed a controlled substance at d/c from ED?: No
[2019-12-24] MEDS ORDERED: ISOSORBIDE MONONITRATE ER 30 MG TAB.ER.24H PO SCH (09:00)
[2019-12-24 11:07] VITALS: BMI 22.6
[2019-12-24 12:43] LABS: Glucose,Whole Blood 181 mg/dL (75-99)
[2019-12-24] MEDS: LISINOPRIL 10 MG TAB PO SCH (13:00)
[2019-12-24] MEDS: hydrALAZINE HCL 25 MG TAB PO SCH ×2 (13:00→21:18)
[2019-12-24] MEDS: LINAGLIPTIN 5 MG TABLET PO SCH (13:00)
[2019-12-24] MEDS: METOPROLOL TARTRATE 25 MG TAB PO SCH ×2 (13:00→21:18)
[2019-12-24] MEDS: POTASSIUM CHLORIDE ER 20 MEQ TAB.ER PO SCH ×2 (13:00→21:18)
[2019-12-24] MEDS: MULTIVITAMINS, THERA 1 EACH TAB PO SCH (13:00)
[2019-12-24] MEDS: INSULIN ASPART (NovoLOG) 100 UNIT/ML VIAL SQ SCH ×3 (13:01→21:18)
[2019-12-24] MEDS ORDERED: FUROSEMIDE 40 MG TAB PO SCH (14:00)
--- NOTE | 2019-12-24 15:35 | P.CNPUL ---
History of Present Illness Consult date: 12/24/19 Reason for consult: dyspnea Chief complaint: Dyspnea History of present illness: 74-year-old white male patient with history of hypertension, hyperlipidemia, diabetes mellitus type 2, former smoker, anxiety, COPD recently started on home oxygen, was brought in for evaluation of worsening shortness of breath from [facility]. He did have some chest discomfort which is relieved by nitroglycerin, denied any cough, he does have some chronic swelling in his lower extremities. We have last seen the patient back in July 2019 when she was hospitalized for acute pulmonary edema secondary to hypertensive emergency. Chest x-ray showed mixed interstitial/alveolar disease bilaterally, moderate size pleural effusions with adjacent passive atelectasis, findings most compatible with congestive heart failure exacerbation. EKG showed sinus tachycardia with nonspecific ST abnormality. Lab work showed a white blood cell count of 12.5, hemoglobin of 9.0, INR 0.9, electrolytes within normal limits, BUN is 38, and creatinine is 1.92, proBNP was some thousand 370, troponins are positive at 0.0-9, and 0.046. On admission blood pressure was 179/99, patient is afebrile, he was placed on BiPAP support, he was given nitroglycerin drip for better blood pressure control, he takes Lasix 40 mg twice daily. He denies any cough or congestion, denies any hemoptysis, denies any wheezing. At the time of my evaluation patient is feeling better, he is currently on 2 L of oxygen denies any worsening dyspnea, lung sounds reveal bibasilar crackles, no significant wheezing, blood pressure is currently 132/70, patient remains afebrile. We will continue diuresing the patient, and his oral Lasix has been switched to IV Lasix. Review of Systems All systems: negative Constitutional: Denies chills, Denies fever Eyes: denies blurred vision, denies pain Ears, nose, mouth and throat: Denies headache, Denies sore throat Cardiovascular: Reports dyspnea on exertion, Reports edema, Reports leg edema, Reports orthopnea, Reports paroxysmal nocturnal dyspnea, Denies chest pain, Denies shortness of breath Respiratory: Denies cough Gastrointestinal: Denies abdominal pain, Denies diarrhea, Denies nausea, Denies vomiting Musculoskeletal: Denies myalgias Integumentary: Denies pruritus, Denies rash Neurological: Denies numbness, Denies weakness Psychiatric: Denies anxiety, Denies depression Endocrine: Denies fatigue, Denies weight change Past Medical History Past Medical History: Asthma, Heart Failure, COPD, Dementia, Diabetes Mellitus, Hyperlipidemia, Hypertension, Pneumonia, Prostate Disorder, Renal Disease Additional Past Medical History / Comment(s): NIDDM type II, neuropathy R leg/foot, BPH, urinary retention, UTI, CKD stage III, anemia, muscle w eakness/difficulty walking, falls. History of Any Multi-Drug Resistant Organisms: None Reported Past Surgical History: Back Surgery, Orthopedic Surgery Additional Past Surgical History / Comment(s): Low back surgery with titanium screws, left first and second finger amputation, colonoscopies. Past Anesthesia/Blood Transfusion Reactions: No Reported Reaction Smoking Status: Former smoker - Past Family History Brother(s) Family Medical History: Cancer Mother Family Medical History: Diabetes Mellitus, Renal Disease Medications and Allergies Home Medications Medication Instructions Recorded Confirmed Type Tamsulosin [Flomax] 0.8 mg PO HS 04/27/14 12/24/19 History Isosorbide Mononitrate ER [Imdur] 30 mg PO DAILY #30 tab.er.24h 08/26/19 12/24/19 Rx Furosemide [Lasix] 40 mg PO BID@0600,1400 09/01/19 12/24/19 History Multivitamins, Thera [Multivitamin 1 tab PO DAILY 09/01/19 12/24/19 History (formulary)] Nitroglycerin Sl Tabs [Nitrostat] 0.4 mg SUBLINGUAL Q5M PRN 09/01/19 12/24/19 History Simvastatin 40 mg PO HS 10/14/19 12/24/19 History Albuterol Sulfate [Ventolin HFA] 1 - 2 puff INHALATION RT-Q6H PRN 12/24/19 12/24/19 History Escitalopram [Lexapro] 5 mg PO DAILY 12/24/19 12/24/19 History Linagliptin [Tradjenta] 5 mg PO DAILY 12/24/19 12/24/19 History Lisinopril [Prinivil] 10 mg PO DAILY 12/24/19 12/24/19 History Metoprolol Tartrate [Lopressor] 25 mg PO BID 12/24/19 12/24/19 History Potassium Chloride ER [K-Dur 20] 20 meq PO BID 12/24/19 12/24/19 History Propylene Glycol/Peg 400/Pf 1 drop BOTH EYES DAILY PRN 12/24/19 12/24/19 History [Systane 0.3-0.4% Eye Drops] Sennosides-Docusate Sodium 1 tab PO DAILY 12/24/19 12/24/19 History [Senokot-S] buPROPion XL [Wellbutrin Xl] 150 mg PO DAILY 12/24/19 12/24/19 History hydrALAZINE HCL [Apresoline] 25 mg PO TID@0600,1400,2100 12/24/19 12/24/19 History Allergies Allergy/AdvReac Type Severity Reaction Status Date / Time iodine Allergy Rash/Hives Verified 12/24/19 07:09 morphine AdvReac Hallucinati Verified 12/24/19 07:09 ons Physical Exam Vitals: Vital Signs Temp Pulse Pulse Resp BP BP Pulse Ox 12/24/19 10:47 98 F 77 20 132/70 98 12/24/19 10:30 93 L 12/24/19 10:15 98.3 F 101 H 143/83 70 L 12/24/19 09:45 78 20 128/66 12/24/19 09:25 84 20 132/66 100 12/24/19 09:00 79 20 116/66 98 12/24/19 08:40 98.5 F 78 20 110/67 98 12/24/19 08:00 98.4 F 79 20 112/62 98 12/24/19 07:30 82 20 119/67 98 12/24/19 06:55 92 21 111/73 95 12/24/19 06:50 93 20 124/63 95 12/24/19 06:45 95 24 137/68 100 12/24/19 06:40 99 28 H 142/65 100 12/24/19 06:35 101 H 20 140/76 100 12/24/19 06:30 95 25 H 142/90 100 12/24/19 06:25 96 27 H 155/77 100 12/24/19 06:22 98 28 H 155/77 100 12/24/19 06:01 34 H 12/24/19 05:53 98.1 F 115 H 35 H 172/99 100 Intake and Output 12/24/19 12/24/19 12/24/19 06:59 14:59 22:59 Intake Total 200 Output Total 375 225 Balance -175 -225 Intake: Oral 200 Output: Urine 375 225 Other: Weight 67.358 kg 67.358 kg GENERAL EXAM: Alert, very pleasant, 74-year-old white female, currently on 2 L of oxygen, was recently on BiPAP support with pressures of 12/6 and 100%, comfortable in no apparent distress. HEAD: Normocephalic/atraumatic. EYES: Normal reaction of pupils, equal size. Conjunctiva pink, sclera white. NOSE: Clear with pink turbinates. THROAT: No erythema or exudates. NECK: No masses, no JVD, no thyroid enlargement, no adenopathy. CHEST: No chest wall deformity. Symmetrical expansion. LUNGS: Equal air entry with bibasilar crackles, but no wheeze, rhonchi or dullness. CVS: Regular rate and rhythm, normal S1 and S2, no gallops, no murmurs, no rubs ABDOMEN: Soft, nontender. No hepatosplenomegaly, normal bowel sounds, no guarding or rigidity. EXTREMITIES: No clubbing, no edema, no cyanosis, 2+ pulses and upper and lower extremities. MUSCULOSKELETAL: Muscle strength and tone normal. SPINE: No scoliosis or deformity SKIN: No rashes CENTRAL NERVOUS SYSTEM: Alert and oriented -3. No focal deficits, tone is normal in all 4 extremities. PSYCHIATRIC: Alert and oriented -3. Appropriate affect. Intact judgment and insight. Results - Laboratory Findings CBC and BMP: 12/24/19 05:50 12/24/19 06:00 PT/INR, D-dimer PT 9.6 sec (9.0-12.0) 12/24/19 06:00 INR 0.9 (<1.2) 12/24/19 06:00 Abnormal lab findings: Abnormal Labs 12/24/19 12/24/19 12/24/19 05:50 06:00 06:00 WBC 12.5 H RBC 3.18 L Hgb 9.0 L D Hct 29.3 L MCHC 30.6 L RDW 17.4 H Plt Count 147 L Neutrophils # 10.2 H APTT VBG pCO2 VBG HCO3 BUN 38 H Creatinine 1.92 H Glucose 303 H POC Glucose (mg/dL) Plasma Lactic Acid Galen 2.1 H* Calcium 8.3 L Troponin I Total Protein 6.2 L 12/24/19 12/24/19 12/24/19 06:00 06:00 12:06 WBC RBC Hgb Hct MCHC RDW Plt Count Neutrophils # APTT 20.9 L VBG pCO2 59 H VBG HCO3 31 H BUN Creatinine Glucose POC Glucose (mg/dL) 181 H Plasma Lactic Acid Galen Calcium Troponin I Total Protein 12/24/19 12:29 WBC RBC Hgb Hct MCHC RDW Plt Count Neutrophils # APTT VBG pCO2 VBG HCO3 BUN Creatinine Glucose POC Glucose (mg/dL) Plasma Lactic Acid Galen Calcium Troponin I 0.046 H* Total Protein - Diagnostic Findings Chest x-ray: report reviewed, image reviewed Assessment and Plan Plan: Assessment: #1. Acute dyspnea related to acute exacerbation of chronic congestive heart failure with previously documented diastolic dysfunction #2. Mild aortic regurgitation, mild tricuspid and mild mitral regurgitation no evidence of pulmonary hypertension #3. Hypertensive emergency and pulmonary edema #4. Chronic hypercapnic and hypoxemic respiratory failure related to COPD #5. Elevated troponin likely related to acute exacerbation of CHF #6. Hypertension #7. Diabetes mellitus type 2 #8. Chronic renal failure stage IIIB #9. Hypercholesterolemia #10. History of depression #11. 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 We'll repeat chest x- ray in the next 24 hours. Patient will be evaluated by cardiology. We'll continue to follow I performed a history & physical examination of the patient and discussed their management with my nurse practitioner, Valorie Gilbert. I reviewed the nurse practitioner's note and agree with the documented findings and plan of care. Lung sounds are positive for bibasilar crackles The findings and the impression was discussed with the patient. I attest to the documentation by the nurse practitioner. Time with Patient: Greater than 30
[2019-12-24 16:39] LABS: Glucose,Whole Blood 167 mg/dL (75-99)
[2019-12-24] MEDS: FUROSEMIDE 10 MG/ML 4 ML VIAL IV SCH ×2 (16:57→23:52)
[2019-12-24] MEDS: buPROPion XL 150 MG TAB.ER.24H PO SCH (16:57)
[2019-12-24] MEDS: ESCITALOPRAM 5 MG TAB PO SCH (16:57)
--- NOTE | 2019-12-24 18:01 | P.HPIM ---
History of Present Illness H&P Date: 12/24/19 Chief Complaint: Dyspnea/panic attack 74-year-old male known to the practice with history of hypertension hyperlipidemia diabetes mellitus type 2 former smoker anxiety COPD stage III chronic renal insufficiency patient was recently discharged from [facility] with pneumonia, early dementia, at that time a Montral cognitive scoring was done and the patient was in 11 out of 30. Patient states he did have some chest discomfort relieved by nitro denies cough does complain of some chronic swelling the lower extremes. Patient was last seen here in July for acute pulmonary edema secondary to hypertensive emergency. Patient has a long- standing history of not taking appropriate medications in the past patient lives I himself and was afraid that medications were costing too much afraid that he might have side effects if he took them and had found himself admitted to the hospital 3 times in 6 weeks all 3 were ICU admissions, discussed at length the need to take meds appropriately patient well is saying that he understood would only take them when in the hospital and was stopped taking all his meds once he arrived home typically blood pressures would skyrocket EKG shows sinus tachycardia with nonspecific ST changes lab work white count was 12.5 hemoglobin was 9.0 which was the same hemoglobin when patient was discharged from [facility] INR 0.9 electrolytes within normal limits by mouth and 38 creatinine is 1.9 which is back to baseline BMP was 370 troponins 0.09 and 0.046. Pressure at admission was 1 7999 patient was afebrile was placed on BiPAP given nitroglycerin for better blood pressure control patient takes Lasix 40 mg twice daily denies cough congestion denies hemoptysis and or wheezing currently on 2 L of oxygen blood pressure is improved we'll reevaluate patient tomorrow Review of Systems Constitutional: Reports as per HPI, Reports weakness Ears, nose, mouth and throat: Reports as per HPI Cardiovascular: Reports chest pain, Reports dyspnea on exertion, Reports edema, Reports high blood pressure Respiratory: Reports congestion, Reports cough, Reports dyspnea, Reports home oxygen Gastrointestinal: Reports as per HPI Genitourinary: Reports decreased libido Musculoskeletal: Reports as per HPI Integumentary: Reports as per HPI Neurological: Reports as per HPI (Significant cognitive impairment) Psychiatric: Reports anxiety, Reports anxiety attacks, Reports confusion, Reports disorientation, Reports irritability Endocrine: Reports high blood sugars Past Medical History Past Medical History: Asthma, Heart Failure, COPD, Dementia, Diabetes Mellitus, Hyperlipidemia, Hypertension, Pneumonia, Prostate Disorder, Renal Disease Additional Past Medical History / Comment(s): NIDDM type II, neuropathy R leg/foot, BPH, urinary retention, UTI, CKD stage III, anemia, muscle weakness/difficulty walking, falls. History of Any Multi-Drug Resistant Organisms: None Reported Past Surgical History: Back Surgery, Orthopedic Surgery Additional Past Surgical History / Comment(s): Low back surgery with titanium screws, left first and second finger amputation, colonoscopies. Past Anesthesia/Blood Transfusion Reactions: No Reported Reaction Smoking Status: Former smoker - Past Family History Brother(s) Family Medical History: Cancer Mother Family Medical History: Diabetes Mellitus, Renal Disease Medications and Allergies Home Medications Medication Instructions Recorded Confirmed Type Tamsulosin [Flomax] 0.8 mg PO HS 04/27/14 12/24/19 History Isosorbide Mononitrate ER [Imdur] 30 mg PO DAILY #30 tab.er.24h 08/26/19 12/24/19 Rx Furosemide [Lasix] 40 mg PO BID@0600,1400 09/01/19 12/24/19 History Multivitamins, Thera [Multivitamin 1 tab PO DAILY 09/01/19 12/24/19 History (formulary)] Nitroglycerin Sl Tabs [Nitrostat] 0.4 mg SUBLINGUAL Q5M PRN 09/01/19 12/24/19 History Simvastatin 40 mg PO HS 10/14/19 12/24/19 History Albuterol Sulfate [Ventolin HFA] 1 - 2 puff INHALATION RT-Q6H PRN 12/24/19 12/24/19 History Escitalopram [Lexapro] 5 mg PO DAILY 12/24/19 12/24/19 History Linagliptin [Tradjenta] 5 mg PO DAILY 12/24/19 12/24/19 History Lisinopril [Prinivil] 10 mg PO DAILY 12/24/19 12/24/19 History Metoprolol Tartrate [Lopressor] 25 mg PO BID 12/24/19 12/24/19 History Potassium Chloride ER [K-Dur 20] 20 meq PO BID 12/24/19 12/24/19 History Propylene Glycol/Peg 400/Pf 1 drop BOTH EYES DAILY PRN 12/24/19 12/24/19 History [Systane 0.3-0.4% Eye Drops] Sennosides-Docusate Sodium 1 tab PO DAILY 12/24/19 12/24/19 History [Senokot-S] buPROPion XL [Wellbutrin Xl] 150 mg PO DAILY 12/24/19 12/24/19 History hydrALAZINE HCL [Apresoline] 25 mg PO TID@0600,1400,2100 12/24/19 12/24/19 History Allergies Allergy/AdvReac Type Severity Reaction Status Date / Time iodine Allergy Rash/Hives Verified 12/24/19 07:09 morphine AdvReac Hallucinati Verified 12/24/19 07:09 ons Physical Exam Osteopathic Statement: *. No significant issues noted on an osteopathic structural exam other than those noted in the History and Physical/Consult. Vitals: Vital Signs Temp Pulse Pulse Resp BP BP Pulse Ox 12/24/19 16:00 97.9 F 81 26 H 142/79 99 12/24/19 12:05 100 90 L 12/24/19 10:47 98 F 77 20 132/70 98 12/24/19 10:30 93 L 12/24/19 10:15 98.3 F 101 H 143/83 70 L 12/24/19 09:45 78 20 128/66 12/24/19 09:25 84 20 132/66 100 12/24/19 09:00 79 20 116/66 98 12/24/19 08:40 98.5 F 78 20 110/67 98 12/24/19 08:00 98.4 F 79 20 112/62 98 12/24/19 07:30 82 20 119/67 98 12/24/19 06:55 92 21 111/73 95 12/24/19 06:50 93 20 124/63 95 12/24/19 06:45 95 24 137/68 100 12/24/19 06:40 99 28 H 142/65 100 12/24/19 06:35 101 H 20 140/76 100 12/24/19 06:30 95 25 H 142/90 100 12/24/19 06:25 96 27 H 155/77 100 12/24/19 06:22 98 28 H 155/77 100 12/24/19 06:01 34 H 12/24/19 05:53 98.1 F 115 H 35 H 172/99 100 Intake and Output 12/24/19 12/24/19 12/24/19 06:59 14:59 22:59 Intake Total 200 Output Total 375 225 Balance -175 -225 Intake: Oral 200 Output: Urine 375 225 Other: Weight 67.358 kg 67.358 kg General: [Patient awake, alert and oriented times 3. Patient in no acute distress.] HEENT: [PERRL. EOMI. No pharyngeal erythema or exudate.] Neck: [No adenopathy.] Cardiac: [Heart regular in rate and rhythm. No S3. No S4. No clicks, rubs. No murmur.] Lungs: [Clear to auscultation bilaterally.] Abdomen: [No mass. No organomegaly. Bowel sounds presnt and normoactive in all 4 quadrants.] Extremes: [No edema no cyanosis no claudication normal pulses] : [] Musculoskeletal: [No joint erythema, edema or tenderness.] Skin: [No rash.] Neurologic: [No lateralizing deficits. CN II - XII grossly intact.] Lymphatic: [No adenopathy.] Results CBC & Chem 7: 12/24/19 05:50 12/24/19 06:00 Labs: Abnormal Lab Results - Last 24 Hours (Table) 12/24/19 12/24/19 12/24/19 Range/Units 05:50 06:00 06:00 WBC 12.5 H (3.8-10.6) k/uL RBC 3.18 L (4.30-5.90) m/uL Hgb 9.0 L D (13.0-17.5) gm/dL Hct 29.3 L (39.0-53.0) % MCHC 30.6 L (31.0-37.0) g/dL RDW 17.4 H (11.5-15.5) % Plt Count 147 L (150-450) k/uL Neutrophils # 10.2 H (1.3-7.7) k/uL APTT (22.0-30.0) sec VBG pCO2 (37-51) mmHg VBG HCO3 (24-28) mmol/L BUN 38 H (9-20) mg/dL Creatinine 1.92 H (0.66-1.25) mg/dL Glucose 303 H (74-99) mg/dL POC Glucose (mg/dL) (75-99) mg/dL Plasma Lactic Acid Galen 2.1 H* (0.7-2.0) mmol/L Calcium 8.3 L (8.4-10.2) mg/dL Troponin I (0.000-0.034) ng/mL Total Protein 6.2 L (6.3-8.2) g/dL 12/24/19 12/24/19 12/24/19 Range/Units 06:00 06:00 12:06 WBC (3.8-10.6) k/uL RBC (4.30-5.90) m/uL Hgb (13.0-17.5) gm/dL Hct (39.0-53.0) % MCHC (31.0-37.0) g/dL RDW (11.5-15.5) % Plt Count (150-450) k/uL Neutrophils # (1.3-7.7) k/uL APTT 20.9 L (22.0-30.0) sec VBG pCO2 59 H (37-51) mmHg VBG HCO3 31 H (24-28) mmol/L BUN (9-20) mg/dL Creatinine (0.66-1.25) mg/dL Glucose (74-99) mg/dL POC Glucose (mg/dL) 181 H (75-99) mg/dL Plasma Lactic Acid Galen (0.7-2.0) mmol/L Calcium (8.4-10.2) mg/dL Troponin I (0.000-0.034) ng/mL Total Protein (6.3-8.2) g/dL 12/24/19 12/24/19 Range/Units 12:29 16:27 WBC (3.8-10.6) k/uL RBC (4.30-5.90) m/uL Hgb (13.0-17.5) gm/dL Hct (39.0-53.0) % MCHC (31.0-37.0) g/dL RDW (11.5-15.5) % Plt Count (150-450) k/uL Neutrophils # (1.3-7.7) k/uL APTT (22.0-30.0) sec VBG pCO2 (37-51) mmHg VBG HCO3 (24-28) mmol/L BUN (9-20) mg/dL Creatinine (0.66-1.25) mg/dL Glucose (74-99) mg/dL POC Glucose (mg/dL) 167 H (75-99) mg/dL Plasma Lactic Acid Galen (0.7-2.0) mmol/L Calcium (8.4-10.2) mg/dL Troponin I 0.046 H* (0.000-0.034) ng/mL Total Protein (6.3-8.2) g/dL Chest x-ray: report reviewed Abdominal x-ray: report reviewed CT scan - abdomen: report reviewed Thrombosis Risk Factor Assmnt - Choose All That Apply Any of the Below Risk Factors Present?: Yes Each Factor Represents 1 point: Abnormal pulmonary function (COPD), Heart failure (<1month) Other Risk Factors: Yes Each Risk Factor Represents 3 Points: Age 75 years or older Other congenital or acquired thrombophilia - If yes, enter type in comment: No Thrombosis Risk Factor Assessment Total Risk Factor Score: 5 Thrombosis Risk Factor Assessment Level: High Risk Assessment and Plan (1) Cognitive impairment Current Visit: Yes Status: Acute Code(s): R41.89 - OTH SYMPTOMS AND SIGNS W COGNITIVE FUNCTIONS AND AWARENESS SNOMED Code(s): 975305209 (2) Acute kidney injury Current Visit: No Status: Acute Code(s): N17.9 - ACUTE KIDNEY FAILURE, UNSPECIFIED SNOMED Code(s): 99985855 (3) Back pain Current Visit: No Status: Acute Code(s): M54.9 - DORSALGIA, UNSPECIFIED SNOMED Code(s): 643555651 (4) Chest pain Current Visit: No Status: Acute Code(s): R07.9 - CHEST PAIN, UNSPECIFIED SNOMED Code(s): 70875209 (5) Chronic diastolic CHF (congestive heart failure), NYHA class 2 Current Visit: No Status: Acute Code(s): I50.32 - CHRONIC DIASTOLIC (CONGESTIVE) HEART FAILURE SNOMED Code(s): 665314253 (6) Chronic renal failure Current Visit: No Status: Acute Code(s): N18.9 - CHRONIC KIDNEY DISEASE, UNSPECIFIED SNOMED Code(s): 40730672 (7) Diabetes mellitus Current Visit: No Status: Acute Code(s): E11.9 - TYPE 2 DIABETES MELLITUS WITHOUT COMPLICATIONS SNOMED Code(s): 71922504 (8) Hypertension Current Visit: No Status: Acute Code(s): I10 - ESSENTIAL (PRIMARY) HYPERTENSION SNOMED Code(s): 51023971 (9) Hypertensive emergency Current Visit: No Status: Acute Code(s): I16.1 - HYPERTENSIVE EMERGENCY SNOMED Code(s): 547283958695609 (10) Poor historian Current Visit: No Status: Acute Code(s): Z78.9 - OTHER SPECIFIED HEALTH STATUS SNOMED Code(s): 407833252 Plan: Dyspnea related to acute exacerbation chronic heart failure with previous documented diastolic dysfunction Mild aortic regurg mild tricuspid and mitral regurg no evidence of pulmonary hypertension Hypertensive emergency pulmonary edema chronic hypercapnic hypoxemia respiratory failure related to COPD Elevated troponins probably secondary to exacerbation of heart failure Known hypertension Diabetes mellitus chronic renal failure stage III B Hypercholesterolemia Significant cognitive impairment last Montral cognitive assessments approximately 3 weeks ago at [facility] was 11 out of 30 With significant poor executive function and executive decision making Poor historian Significant noncompliance when allowed to live by self Patient's only known relative is his sister that lives in [place] Plan nebulized bronchodilators BiPAP as needed by pressure well controlled at this time patient breathing easier Plan on significant control of blood pressure Have psychiatry evaluate patient for her depression and anxiety and assess cognitive impairment Time with Patient: Greater than 30
[2019-12-24] MEDS: ALBUTEROL NEBULIZED 2.5 MG/3 ML INHALATION PRN (20:32)
[2019-12-24 20:58] LABS: Glucose,Whole Blood 160 mg/dL (75-99)
[2019-12-24] MEDS: TAMSULOSIN 0.4 MG CAP.ER.24H PO SCH (21:17)
[2019-12-24] MEDS: ATORVASTATIN 20 MG TAB PO SCH (21:18)
[2019-12-25 00:58] LABS: Hemoglobin A1C 6.7 % (4.0-6.0)
[2019-12-25] MEDS ORDERED: NITROGLYCERIN SL TABS 0.4 MG TAB SUBLINGUAL ONE (03:03)
[2019-12-25 06:16] LABS: Glucose,Whole Blood 206 mg/dL (75-99)
[2019-12-25] MEDS: hydrALAZINE HCL 25 MG TAB PO SCH ×3 (06:18→20:48)
[2019-12-25] MEDS: INSULIN ASPART (NovoLOG) 100 UNIT/ML VIAL SQ SCH ×4 (06:18→23:28)
--- NOTE | 2019-12-25 07:53 | XR ---
EXAMINATION TYPE: XR chest 1V portable DATE OF EXAM: 12/25/2019 CLINICAL HISTORY: Difficulty breathing and CHF progress study. TECHNIQUE: Single AP portable upright view of the chest is obtained. COMPARISON: Chest x-ray from one day earlier and older studies. FINDINGS: Stable mild cardiomegaly with atherosclerotic thoracic aorta. Persistent alveolar and inte rstitial opacities bilaterally prominent in the lower lungs with some improvement in the bilateral pe rihilar regions. Multilevel spondylytic spine redemonstrated. Persistent small right pleural effusion . Improved left effusion. IMPRESSION: Improved left-sided effusion. Improved bilateral central perihilar edema and/or infiltrat es. Findings suggest improving or resolving CHF exacerbation. Areas of alveolar and interstitial rachel a and/or infiltrates remain present along with persistent small right pleural effusion.
--- NOTE | 2019-12-25 08:39 | P.CRDCN ---
History of Present Illness Consult date: 12/25/19 Requesting physician: Hood Akhtar Consult reason: congestive heart failure Chief complaint: Shortness of breath History of present illness: This is a pleasant 74-year-old gentleman with history of hypertension, diabetes, chronic renal failure, hyperlipidemia, recently in the hospital in July of last year with CHF exacerbation. Resides at an extended care facility. Patient was experiencing some shortness of breath and chest discomfort and was brought to the hospital for further evaluation and treatment. The patient states he was experiencing heaviness in his chest and gave him a sublingual nitroglycerin and he got relief of the symptoms with that. He also has been more short of breath than usual. According to the patient on night long he's been up urinating. He was initiated on IV Lasix yesterday. His initial x-ray suggested congestive heart failure exacerbation. His EKG on presentation here showed a sinus tachycardia with nonspecific ST-T wave changes. Repeat chest x-ray this morning showed improved left-sided effusion, improved bilateral central. Hilar edema and more infiltrates. Findings suggest improving or resolving congestive heart failure exacerbation. Blood pressure 142/70 with a heart rate of 90, 97% on 6 L of oxygen. White blood cell count 12.5, hemoglobin 9, platelet count 147. Sodium 137, potassium 4.5, BUN 38, creatinine 1.9. Troponins 0.029, 0.046, 0.059. BNP level 7370. At the time of my examination this morning, patient is lying flat in bed, he appears to be comfortable, denies any chest discomfort, does state that his breathing has improved and the swelling in his legs is improving as well. Past Medical History Past Medical History: Asthma, Heart Failure, COPD, Dementia, Diabetes Mellitus, Hyperlipidemia, Hypertension, Pneumonia, Prostate Disorder, Renal Disease Additional Past Medical History / Comment(s): NIDDM type II, neuropathy R leg/foot, BPH, urinary retention, UTI, CKD stage III, anemia, muscle weakness/difficulty walking, falls. History of Any Multi-Drug Resistant Organisms: None Reported Past Surgical History: Back Surgery, Orthopedic Surgery Additional Past Surgical History / Comment(s): Low back surgery with titanium screws, left first and second finger amputation, colonoscopies. Past Anesthesia/Blood Transfusion Reactions: No Reported Reaction Smoking Status: Former smoker - Past Family History Brother(s) Family Medical History: Cancer Mother Family Medical History: Diabetes Mellitus, Renal Disease Medications and Allergies Home Medications Medication Instructions Recorded Confirmed Type Tamsulosin [Flomax] 0.8 mg PO HS 04/27/14 12/24/19 History Isosorbide Mononitrate ER [Imdur] 30 mg PO DAILY #30 tab.er.24h 08/26/19 12/24/19 Rx Furosemide [Lasix] 40 mg PO BID@0600,1400 09/01/19 12/24/19 History Multivitamins, Thera [Multivitamin 1 tab PO DAILY 09/01/19 12/24/19 History (formulary)] Nitroglycerin Sl Tabs [Nitrostat] 0.4 mg SUBLINGUAL Q5M PRN 09/01/19 12/24/19 History Simvastatin 40 mg PO HS 10/14/19 12/24/19 History Albuterol Sulfate [Ventolin HFA] 1 - 2 puff INHALATION RT-Q6H PRN 12/24/19 12/24/19 History Escitalopram [Lexapro] 5 mg PO DAILY 12/24/19 12/24/19 History Linagliptin [Tradjenta] 5 mg PO DAILY 12/24/19 12/24/19 History Lisinopril [Prinivil] 10 mg PO DAILY 12/24/19 12/24/19 History Metoprolol Tartrate [Lopressor] 25 mg PO BID 12/24/19 12/24/19 History Potassium Chloride ER [K-Dur 20] 20 meq PO BID 12/24/19 12/24/19 History Propylene Glycol/Peg 400/Pf 1 drop BOTH EYES DAILY PRN 12/24/19 12/24/19 History [Systane 0.3-0.4% Eye Drops] Sennosides-Docusate Sodium 1 tab PO DAILY 12/24/19 12/24/19 History [Senokot-S] buPROPion XL [Wellbutrin Xl] 150 mg PO DAILY 12/24/19 12/24/19 History hydrALAZINE HCL [Apresoline] 25 mg PO TID@0600,1400,2100 12/24/19 12/24/19 History Allergies Allergy/AdvReac Type Severity Reaction Status Date / Time iodine Allergy Rash/Hives Verified 12/24/19 07:09 morphine AdvReac Hallucinati Verified 12/24/19 07:09 ons Physical Exam Vitals: Vital Signs Temp Pulse Pulse Resp BP BP Pulse Ox 12/25/19 04:00 98.7 F 93 20 142/76 97 12/24/19 20:44 90 12/24/19 20:32 88 97 12/24/19 20:00 98.7 F 91 18 153/76 95 12/24/19 16:00 97.9 F 81 26 H 142/79 99 12/24/19 12:05 100 90 L 12/24/19 10:47 98 F 77 20 132/70 98 12/24/19 10:30 93 L 12/24/19 10:15 98.3 F 101 H 143/83 70 L 12/24/19 09:45 78 20 128/66 12/24/19 09:25 84 20 132/66 100 12/24/19 09:00 79 20 116/66 98 12/24/19 08:40 98.5 F 78 20 110/67 98 Intake and Output 12/24/19 12/25/19 12/25/19 22:59 06:59 14:59 Intake Total 120 Output Total 625 550 Balance -505 -550 Intake: Oral 120 Output: Urine 625 550 Other: Voiding Method Urinal Incontinent # Voids 1 Weight 56 kg HEAD: Normocephalic/atraumatic. EYES: Normal reaction of pupils, equal size. Conjunctiva pink, sclera white. NOSE: Clear with pink turbinates. THROAT: No erythema or exudates. NECK: No masses, no JVD, no thyroid enlargement, no adenopathy. CHEST: No chest wall deformity. Symmetrical expansion. LUNGS: Reveal diminished air entry to bilateral bases . CVS: Regular rate and rhythm, normal S1 and S2, no gallops, no murmurs, no rubs ABDOMEN: Soft, nontender. No hepatosplenomegaly, normal bowel sounds, no guarding or rigidity. EXTREMITIES: No clubbing, trace bilateral peripheral edema, no cyanosis, 2+ pulses and upper and lower extremities. MUSCULOSKELETAL: Muscle strength and tone normal. SPINE: No scoliosis or deformity SKIN: No rashes CENTRAL NERVOUS SYSTEM: Alert and oriented -3. No focal deficits, tone is normal in all 4 extremities. PSYCHIATRIC: Alert and oriented -3. Appropriate affect. Intact judgment and insight. Results 12/24/19 05:50 12/24/19 06:00 Cardiac Enzymes 12/24/19 12/24/19 Range/Units 12:29 18:04 Troponin I 0.046 H* 0.059 H* (0.000-0.034) ng/mL Current Medications Generic Name Dose Route Start Last Admin Trade Name Freq PRN Reason Stop Dose Admin Albuterol Sulfate 2.5 mg 12/24/19 07:29 12/24/19 20:32 Ventolin Nebulized INHALATION 2.5 mg RT-Q6H PRN Administration Wheezing Atorvastatin Calcium 20 mg 12/24/19 21:00 12/24/19 21:18 Lipitor PO 20 mg HS JN Administration Bupropion HCl 150 mg 12/24/19 09:00 12/24/19 16:57 Wellbutrin Xl PO 150 mg DAILY JN Administration Escitalopram Oxalate 5 mg 12/24/19 09:00 12/24/19 16:57 Lexapro PO 5 mg DAILY JN Administration Furosemide 40 mg 12/24/19 16:00 12/24/19 23:52 Lasix IV 40 mg Q8HR JN Administration Hydralazine HCl 25 mg 12/24/19 14:00 12/25/19 06:18 Apresoline PO 25 mg TID@0600,1400,2100 JN Administration Insulin Aspart 0 unit 12/24/19 12:30 12/25/19 06:18 Novolog SQ 3 unit ACHS JN Administration Protocol Isosorbide Mononitrate 30 mg 12/25/19 09:00 Imdur PO DAILY JN Linagliptin 5 mg 12/24/19 09:00 12/24/19 13:00 Tradjenta PO 5 mg DAILY JN Administration Lisinopril 10 mg 12/24/19 09:00 12/24/19 13:00 Zestril PO 10 mg DAILY JN Administration Metoprolol Tartrate 25 mg 12/24/19 09:00 12/24/19 21:18 Lopressor PO 25 mg BID JN Administration Multivitamins 1 each 12/24/19 09:00 12/24/19 13:00 Theragran PO 1 each DAILY JN Administration Nitroglycerin 0.4 mg 12/24/19 07:29 Nitrostat SUBLINGUAL Q5M PRN Chest Pain Potassium Chloride 20 meq 12/24/19 09:00 12/24/19 21:18 K-Dur 20 PO 20 meq BID JN Administration Sodium Chloride 10 ml 12/24/19 09:00 12/24/19 21:18 Saline Flush IV 10 ml BID JN Administration Tamsulosin HCl 0.8 mg 12/24/19 21:00 12/24/19 21:17 Flomax PO 0.8 mg HS JN Administration Intake and Output 12/24/19 12/25/19 12/25/19 22:59 06:59 14:59 Intake Total 120 Output Total 625 550 Balance -505 -550 Intake: Oral 120 Output: Urine 625 550 Other: Voiding Method Urinal Incontinent # Voids 1 Weight 56 kg 12/24/19 05:50 12/24/19 06:00 EKG Interpretations (text) EKG shows a sinus tachycardia with nonspecific ST-T wave changes Assessment and Plan Plan: Assessment and plan #1. Diastolic congestive heart failure acute on chronic, most recent echocardiogram with Doppler study performed in July 2019 showed an ejection fraction of 55-60% with mild aortic regurgitation, mild tricuspid and mild mitr al regurgitation no evidence of pulmonary hypertension #2. Chest discomfort, relieved with nitroglycerin, troponins 0.02, 0.04, 0.05. EKG shows a sinus tachycardia with nonspecific ST-T wave changes. Cannot completely rule out acute coronary syndrome. #3. Hypertensive emergency and pulmonary edema #4. Chronic hypercapnic and hypoxemic respiratory failure related to COPD #5. Elevated troponin likely related to acute exacerbation of CHF #6. Hypertension #7. Diabetes mellitus type 2 #8. Chronic renal failure stage IIIB #9. Hypercholesterolemia #10. History of depression #11. 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 We'll also obtain a d-dimer to rule out the possibility of pulmonary embolism. Further recommendations to follow. DNP note has been reviewed, I agree with a documented findings and plan of care. Patient was seen and examined.
[2019-12-25] MEDS: METOPROLOL TARTRATE 25 MG TAB PO SCH ×2 (08:56→20:48)
[2019-12-25] MEDS: MULTIVITAMINS, THERA 1 EACH TAB PO SCH (08:56)
[2019-12-25] MEDS: ISOSORBIDE MONONITRATE ER 30 MG TAB.ER.24H PO SCH (08:56)
[2019-12-25] MEDS: POTASSIUM CHLORIDE ER 20 MEQ TAB.ER PO SCH ×2 (08:56→20:48)
[2019-12-25] MEDS: ESCITALOPRAM 5 MG TAB PO SCH (08:56)
[2019-12-25] MEDS: LINAGLIPTIN 5 MG TABLET PO SCH (08:56)
[2019-12-25] MEDS: buPROPion XL 150 MG TAB.ER.24H PO SCH (08:56)
[2019-12-25] MEDS: FUROSEMIDE 10 MG/ML 4 ML VIAL IV SCH ×3 (08:56→23:28)
[2019-12-25] MEDS: LISINOPRIL 10 MG TAB PO SCH (08:56)
[2019-12-25] MEDS: ASPIRIN 81 MG PO SCH (08:58)
--- NOTE | 2019-12-25 10:40 | P.PN ---
Subjective Progress Note Date: 12/25/19 74-year-old white male patient with history of hypertension, hyperlipidemia, diabetes mellitus type 2, former smoker, anxiety, COPD recently started on home oxygen, was brought in for evaluation of worsening shortness of breath from [facility]. He did have some chest discomfort which is relieved by nitroglycerin, denied any cough, he does have some chronic swelling in his lower extremities. We have last seen the patient back in July 2019 when she was hospitalized for acute pulmonary edema secondary to hypertensive emergency. Chest x-ray showed mixed interstitial/alveolar disease bilaterally, moderate size pleural effusions with adjacent passive atelectasis, findings most compatible with congestive heart failure exacerbation. EKG showed sinus tachycardia with nonspecific ST abnormality. Lab work showed a white blood cell count of 12.5, hemoglobin of 9.0, INR 0.9, electrolytes within normal limits, BUN is 38, and creatinine is 1.92, proBNP was some thousand 370, troponins are positive at 0.0-9, and 0.046. On admission blood pressure was 179/99, patient is afebrile, he was placed on BiPAP support, he was given nitroglycerin drip for better blood pressure control, he takes Lasix 40 mg twice daily. He denies any cough or congestion, denies any hemoptysis, denies any wheezing. At the time of my evaluation patient is feeling better, he is currently on 2 L of oxygen denies any worsening dyspnea, lung sounds reveal bibasilar crackles, no significant wheezing, blood pressure is currently 132/70, patient remains afebrile. We will continue diuresing the patient, and his oral Lasix has been switched to IV Lasix. On O2 2019 patient seen in follow-up on selective care unit, he is breathing easier today, vital signs are stable, he is been diuresed, he remains on 40 mg of Lasix 3 times daily. She is in -1230 mL fluid balance over the last 24 hours, today's chest x-ray shows improving left-sided effusion, and improved bilateral central perihilar edema related to resolving CHF exacerbation. He is on 6 L of oxygen his pulse ox is 97%, he has been wearing BiPAP as needed and at bedtime, currently off BiPAP, his been up out of bed to use the commode and tolerating activity fairly well. No complaints of chest pain, no hemoptysis. D-dimer came back elevated at 4.28 however patient's renal final is impaired. We will obtain lower extremity Dopplers. Objective - Vital Signs Vital signs: Vital Signs Temp 98.7 F 12/25/19 04:00 Pulse 93 12/25/19 04:00 Resp 20 12/25/19 04:00 BP 142/76 12/25/19 04:00 Pulse Ox 97 12/25/19 04:00 Intake & Output 12/24/19 12/25/19 12/25/19 18:59 06:59 18:59 Intake Total 320 360 Output Total 600 950 Balance -280 -950 360 Weight 67.358 kg 56 kg Intake: Oral 320 360 Output: Urine 600 950 Other: Voiding Method Urinal Incontinent # Voids 1 - Exam GENERAL EXAM: Alert, very pleasant, 74-year-old white female, currently on 6 L of oxygen, pulse ox of 97%, was recently on BiPAP support with pressures of 12/6 and 100%, comfortable in no apparent distress. HEAD: Normocephalic/atraumatic. EYES: Normal reaction of pupils, equal size. Conjunctiva pink, sclera white. NOSE: Clear with pink turbinates. THROAT: No erythema or exudates. NECK: No masses, no JVD, no thyroid enlargement, no adenopathy. CHEST: No chest wall deformity. Symmetrical expansion. LUNGS: Equal air entry with bibasilar crackles, but no wheeze, rhonchi or dullness. CVS: Regular rate and rhythm, normal S1 and S2, no gallops, no murmurs, no rubs ABDOMEN: Soft, nontender. No hepatosplenomegaly, normal bowel sounds, no guarding or rigidity. EXTREMITIES: No clubbing, no edema, no cyanosis, 2+ pulses and upper and lower extremities. MUSCULOSKELETAL: Muscle strength and tone normal. SPINE: No scoliosis or deformity SKIN: No rashes CENTRAL NERVOUS SYSTEM: Alert and oriented -3. No focal deficits, tone is normal in all 4 extremities. PSYCHIATRIC: Alert and oriented -3. Appropriate affect. Intact judgment and insight. - Labs CBC & Chem 7: 12/24/19 05:50 12/24/19 06:00 Labs: Abnormal Lab Results - Last 24 Hours (Table) 12/24/19 12/24/19 12/24/19 Range/Units 12:06 12:29 16:27 D-Dimer (<0.60) mg/L FEU POC Glucose (mg/dL) 181 H 167 H (75-99) mg/dL Hemoglobin A1c (4.0-6.0) % Troponin I 0.046 H* (0.000-0.034) ng/mL 12/24/19 12/24/19 12/24/19 Range/Units 18:04 18:04 20:57 D-Dimer (<0.60) mg/L FEU POC Glucose (mg/dL) 160 H (75-99) mg/dL Hemoglobin A1c 6.7 H (4.0-6.0) % Troponin I 0.059 H* (0.000-0.034) ng/mL 12/25/19 12/25/19 Range/Units 06:15 09:14 D-Dimer 4.28 H (<0.60) mg/L FEU POC Glucose (mg/dL) 206 H (75-99) mg/dL Hemoglobin A1c (4.0-6.0) % Troponin I (0.000-0.034) ng/mL Assessment and Plan Plan: Assessment: #1. Acute dyspnea related to acute exacerbation of chronic congestive heart failure with previously documented diastolic dysfunction #2. Mild aortic regurgitation, mild tricuspid and mild mitral regurgitation no evidence of pulmonary hypertension #3. Hypertensive emergency and pulmonary edema #4. Chronic hypercapnic and hypoxemic respiratory failure related to COPD #5. Elevated troponin likely related to acute exacerbation of CHF #6. Hypertension #7. Diabetes mellitus type 2 #8. Chronic renal failure stage IIIB #9. Hypercholesterolemia #10. History of depression #11. 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 Elevated d-dimer, rule out thromboembolic event, the patient has impaired renal function, we'll obtain lower extremity Dopplers Plan: Today's chest x-ray has been reviewed showing improvement in the appearance of bilateral infiltrates, pleural effusions, and pulmonary edema. Continue with IV Lasix, lower extremity Dopplers will be obtained in view of elevated d-dimer. Follow-up blood work today. We'll continue with current medical treatment I performed a history & physical examination of the patient and discussed their management with my nurse practitioner, Valorie Gilbert. I reviewed the nurse practitioner's note and agree with the documented findings and plan of care. Lung sounds are positive for bibasilar crackles The findings and the impression was discussed with the patient. I attest to the documentation by the nurse practitioner. Time with Patient: Less than 30
[2019-12-25] MEDS: ALBUTEROL NEBULIZED 2.5 MG/3 ML INHALATION PRN (11:27)
--- NOTE | 2019-12-25 11:40 | US ---
EXAMINATION TYPE: US venous doppler duplex LE DATE OF EXAM: 12/25/2019 11:18 AM COMPARISON: Right lower extremity venous ultrasound April 14, 2019 CLINICAL HISTORY: elevated d-dimer. Elevated d dimer SIDE PERFORMED: Bilateral TECHNIQUE: The lower extremity deep venous system is examined utilizing real time linear array sonog matt with graded compression, doppler sonography and color-flow sonography. VESSELS IMAGED: External Iliac Vein (EIV) Common Femoral Vein Deep Femoral Vein Greater Saphenous Vein * Femoral Vein Popliteal Vein Small Saphenous Vein * Proximal Calf Veins (* superficial vessels) Right Leg: Negative for DVT Left Leg: Negative for DVT Grayscale, color doppler, spectral doppler imaging performed of the deep veins of the bilateral lower extremities. There is normal flow, compressibility, vascular waveforms. IMPRESSION: No ultrasound evidence for acute DVT in either lower extremity.
[2019-12-25 11:48] LABS: Calcium 8.5 mg/dL (8.4-10.2); Potassium 4.1 mmol/L (3.5-5.1)
[2019-12-25 12:27] LABS: Glucose,Whole Blood 336 mg/dL (75-99)
--- NOTE | 2019-12-25 15:08 | P.CN ---
Psychiatric Consult - . Consult date: 12/25/19 Consult:: IDENTIFYING DATA: He is a 74-year-old male admitted to medicine service for management and of acute dyspnea related to exacerbation of chronic congestive heart failure. The hospitalist consult to psychiatry to ev aluate his cognitive impairment. HISTORY OF PRESENT ILLNESS: I reviewed the medical record and interviewed the patient. He explained the reason for his presentation and talked about the sudden onset of shortness breath that necessitated transfer from [facility] on the [place]. He talked about experiencing" anxiety attack." He has had "5 or 6" anxiety attacks in recent history. He denied a past history of panic attacks or problems with anxiety. The anxiety attacks occur during increased physical activity and are preceded by shortness of breath. He was unaware of the cognitive assessment at [facility] or that he was given diagnosis of dementia. He acknowledged that he has difficulty with his recent memory. During the interview was able to provide a fairly comprehensive past history. PAST PSYCHIATRIC HISTORY: He denied history of psychiatric treatment.. PAST MEDICAL HISTORY: He has ahistory of multiple diagnoses including congestive heart failure, dystonic dysfunction, aortic regurgitation, mitral and tricuspid regurgitation, history of hypertensive emergency and pulmonary edema, chronic hypercapnia and hypoxemia respiratory failure related to chronic COPD, hypertension, diabetes type 2, chronic renal failure stage III, hypercholesterolemia. ALLERGIES: Iodine, morphine. SUBSTANCE USE HISTORY: He denied a history of alcohol use or use of other drugs get high, help with sleep or changes mood.. FAMILY PSYCHIATRIC/SUBSTANCE USE HISTORY: He is unaware of family history of mental health problems. SOCIAL HISTORY: His born and raised in [place]. He has 3 brothers and 1 sister. Two of his brothers are . He was [employer] during the [place] War. He spent approximately 6 months in [place] and the remainder of his in [place]. He has been for over 20 years. He has 3 children. He lives alone in an apartment in [place]. He is unemployed and supported by veterans disability benefits and Social Security. MENTAL STATUS EXAM: He presented as a casually groomed elderly male who was sitting comfortably in the recliner. He was using oxygen cannula and became short of breath during the interview. He had no distinguishing features or prominent physical abnormalities. He had a blunted but bright facial expression. He is alert and oriented to person, place and time. Showed psychomotor retardation but no abnormal movements. Her speech was spontaneous with normal rate, rhythm and volume. He appeared to have word finding difficulties. He became anxious when he is short of breath. He denied suicidal ideation, wishes or homicidal ideation. He denied feeling hopeless, helpless or worthless. He ruminated about his medical problems and inquired about veterans assistance with home health care. He did not express ideas reference, paranoid ideation or delusional thoughts. His thinking was concrete but his associations were coherent, logical and goal directed. He denied hallucinations and did not appear to be responding to internal stimuli. No We completed the [facility] Orientation Memory and Concentration test. His total weighted error score was 14; the total weighted error score greater than 11 is consistent with a dementia. He was oriented to month and year. He was able to register memory phrase "Jaron Gotti, [address] [facility])" but did not recall the phrase after distraction exercise is. He is able to count backwards from 20 to 1. was unable to name the months of the year backwards beginning with September. IMPRESSIONS: He is an elderly gentleman with multiple medical problems was to the [facility] with acute dyspnea related to acute exacerbation of congestive heart failure. He gave a history of anxiety that is related severity of dyspnea. He denied a past history of psychiatric or mental health treatment or problems with alcohol or drugs. His performance on the [place] Cognitive Assessment during recent stay at [facility] was consistent with a dementia. His cognitive screening his similarly consistent with a dementia showing impairment in concentration, attention and short-term recall. The difficulties with concentration and attention could be related to his chronic hypoxia. I suspect that his dementia is multifactorial and primarily related to his chronic medical illnesse but I cannot exclude a primary major neurocognitive disorder such as Alzheimer's disease. DIAGNOSIS: Major neurocognitive disorder due to multiple etiologies without behavioral disturbances . PLAN: There is no indication for transfer to psychiatric unit. Jayden cain for outpatient psychiatric treatment at this time. Consult consult social work for assistance with referring him to a veterans organization such as the [employer] that would help him with a disability claim for home health care. Thank you for this consult. Will sign off the case. 12/25/19 12:29 12/25/19 15:05
--- NOTE | 2019-12-25 16:19 | P.PN ---
Subjective Progress Note Date: 12/25/19 74-year-old male known to the practice with history of hypertension hyperlipidemia diabetes mellitus type 2 former smoker anxiety COPD stage III chronic renal insufficiency patient was recently discharged from [facility] with pneumonia, early dementia, at that time a Montral cognitive scoring was done and the patient was in 11 out of 30. Patient states he did have some chest discomfort relieved by nitro denies cough does complain of some chronic swelling the lower extremes. Patient was last seen here in July for acute pulmonary edema secondary to hypertensive emergency. Patient has a long- standing history of not taking appropriate medications in the past patient lives I himself and was afraid that medications were costing too much afraid that he might have side effects if he took them and had found himself admitted to the hospital 3 times in 6 weeks all 3 were ICU admissions, discussed at length the need to take meds appropriately patient well is saying that he understood would only take them when in the hospital and was stopped taking all his meds once he arrived home typically blood pressures would skyrocket EKG shows sinus tachycardia with nonspecific ST changes lab work white count was 12.5 hemoglobin was 9.0 which was the same hemoglobin when patient was discharged from [facility] INR 0.9 electrolytes within normal limits by mouth and 38 creatinine is 1.9 which is back to baseline BMP was 370 troponins 0.09 and 0.046. Pressure at admission was 1 7999 patient was afebrile was placed on BiPAP given nitroglycerin for better blood pressure control patient takes Lasix 40 mg twice daily denies cough congestion denies hemoptysis and or wheezing currently on 2 L of oxygen blood pressure is improved we'll reevaluate patient tomorrow 12/25/2019 elevated d-dimer, Doppler of lower extremities pending, creatinine 1.9. Diuresing well on Lasix IV push with 24-hour I&O reflecting a negative fluid balance. Breathing improving, maintaining O2 sats in the 90s on 6 L nasal cannula. Psychiatry evaluation pending. Objective - Vital Signs Vital signs: Vital Signs Temp 98.6 F 12/25/19 08:00 Pulse 88 12/25/19 12:00 Resp 20 12/25/19 04:00 BP 110/62 12/25/19 12:00 Pulse Ox 96 12/25/19 12:00 Intake & Output 12/24/19 12/25/19 12/25/19 18:59 06:59 18:59 Intake Total 320 960 Output Total 600 950 100 Balance -280 -950 860 Weight 67.358 kg 56 kg Intake: Oral 320 960 Output: Urine 600 950 100 Other: Voiding Method Urinal Incontinent # Voids 1 - Exam General: [Patient awake, alert and oriented times 3. Patient in no acute distress.] HEENT: [PERRL. EOMI. No pharyngeal erythema or exudate.] Neck: [No adenopathy.] Cardiac: [Heart regular in rate and rhythm. No S3. No S4. No clicks, rubs. No murmur.] Lungs: Diminished with fine bibasilar crackles Abdomen: [No mass. No organomegaly. Bowel sounds presnt and normoactive in all 4 quadrants.] Extremes: [No edema no cyanosis no claudication normal pulses] Musculoskeletal: [No joint erythema, edema or tenderness.] Skin: [No rash.] Neurologic: [No lateralizing deficits. CN II - XII grossly intact.] Lymphatic: [No adenopathy.] - Labs CBC & Chem 7: 12/24/19 05:50 12/25/19 09:14 Labs: Abnormal Lab Results - Last 24 Hours (Table) 12/24/19 12/24/19 12/24/19 Range/Units 16:27 18:04 18:04 D-Dimer (<0.60) mg/L FEU Carbon Dioxide (22-30) mmol/L BUN (9-20) mg/dL Creatinine (0.66-1.25) mg/dL Glucose (74-99) mg/dL POC Glucose (mg/dL) 167 H (75-99) mg/dL Hemoglobin A1c 6.7 H (4.0-6.0) % Troponin I 0.059 H* (0.000-0.034) ng/mL 12/24/19 12/25/19 12/25/19 Range/Units 20:57 06:15 09:14 D-Dimer 4.28 H (<0.60) mg/L FEU Carbon Dioxide (22-30) mmol/L BUN (9-20) mg/dL Creatinine (0.66-1.25) mg/dL Glucose (74-99) mg/dL POC Glucose (mg/dL) 160 H 206 H (75-99) mg/dL Hemoglobin A1c (4.0-6.0) % Troponin I (0.000-0.034) ng/mL 12/25/19 12/25/19 Range/Units 09:14 12:23 D-Dimer (<0.60) mg/L FEU Carbon Dioxide 33 H (22-30) mmol/L BUN 39 H (9-20) mg/dL Creatinine 1.90 H (0.66-1.25) mg/dL Glucose 266 H (74-99) mg/dL POC Glucose (mg/dL) 336 H (75-99) mg/dL Hemoglobin A1c (4.0-6.0) % Troponin I (0.000-0.034) ng/mL Assessment and Plan Assessment: (1) Cognitive impairment Current Visit: Yes Status: Acute Code(s): R41.89 - OTH SYMPTOMS AND SIGNS W COGNITIVE FUNCTIONS AND AWARENESS SNOMED Code(s): 124692783 (2) Acute kidney injury Current Visit: No Status: Acute Code(s): N17.9 - ACUTE KIDNEY FAILURE, UNSPECIFIED SNOMED Code(s): 10942572 (3) Back pain Current Visit: No Status: Acute Code(s): M54.9 - DORSALGIA, UNSPECIFIED SNOMED Code(s): 694642873 (4) Chest pain Current Visit: No Status: Acute Code(s): R07.9 - CHEST PAIN, UNSPECIFIED SNOMED Code(s): 46812186 (5) Chronic diastolic CHF (congestive heart failure), NYHA class 2 Current Visit: No Status: Acute Code(s): I50.32 - CHRONIC DIASTOLIC (CONGESTIVE) HEART FAILURE SNOMED Code(s): 789909101 (6) Chronic renal failure Current Visit: No Status: Acute Code(s): N18.9 - CHRONIC KIDNEY DISEASE, UNSPECIFIED SNOMED Code(s): 98104076 (7) Diabetes mellitus Current Visit: No Status: Acute Code(s): E11.9 - TYPE 2 DIABETES MELLITUS WITHOUT COMPLICATIONS SNOMED Code(s): 64845201 (8) Hypertension Current Visit: No Status: Acute Code(s): I10 - ESSENTIAL (PRIMARY) HYPERTENSION SNOMED Code(s): 93541768 (9) Hypertensive emergency Current Visit: No Status: Acute Code(s): I16.1 - HYPERTENSIVE EMERGENCY SNOMED Code(s): 789667012647290 (10) Poor historian Current Visit: No Status: Acute Code(s): Z78.9 - OTHER SPECIFIED HEALTH STATUS SNOMED Code(s): 139316904 Plan: Continue on current medication regime ,monitoring and symptomatic mario tment. Elevated d-dimer- Doppler of lower extremities pending. Maintain diuresing, close monitoring of renal function with repeat labs ordered for a.m. Isolated hyperglycemia Accu-Chek earlier today secondary to staff giving patient two juices and a cookie. Maintain consistent carb diet. Discussed with both the social director/case fitter guardianship needs. Maintain nebulized bronchodilators BIPAP PRN and at bedtime. [facility] Subacute rehab at discharge. The impression and plan of care has been dictated as directed. : I performed a history and examination of this patient, discussed the same with the dictator. I agree with the dictator's note ,documented as a scribe. Any additional findings or plans will be noted.
[2019-12-25 16:53] LABS: Glucose,Whole Blood 101 mg/dL (75-99)
--- NOTE | 2019-12-25 17:00 | ECHOF ---
Referral Reason:chf MEASUREMENTS -------- HEIGHT: 172.7 cm WEIGHT: 55.8 kg BP: 142/76 IVSd: 1.2 cm (0.6 - 1.1) LVIDd: 4.7 cm (3.9 - 5.3) LVPWd: 1.2 cm (0.6 - 1.1) IVSs: 1.8 cm LVIDs: 3.4 cm LVPWs: 1.8 cm RVIDd: 3.4 cm (< 3.3) LAESV Index (A-L): 69.69 ml/m Ao Diam: 3.0 cm (2.0 - 3.7) AV Cusp: 1.2 cm (1.5 - 2.6) EPSS: 0.3 cm MV E Syed: 1.05 m/s MV DecT: 129 ms MV A Syed: 0.63 m/s MV E/A Ratio: 1.66 AV maxP.15 mmHg AV meanP.57 mmHg AR PHT: 527 ms RAP: 5.00 mmHg RVSP: 67.72 mmHg MV EF SLOPE: 66.28 mm/s (70 - 150) MV EXCURSION: 16.43 mm (> 18.000) FINDINGS -------- Sinus rhythm with extra systolic beats. This was a technically good study. The left ventricular size is normal. There is mild concentric left ventricular hypertrophy. Overa ll left ventricular systolic function is low-normal with, an EF between 50 - 55 %. Increased Lap Gr bart II Diastolic Dysfunction. The right ventricle is mildly enlarged. LA is severely dilated >40 ml/m2 The right atrial size is normal. Interatrial and interventricular septum intact. There is mild aortic regurgitation. There is mild aortic stenosis present. Peak/mean gradient acr oss the Aortic Valve is 27.15mmHg / 14.57mmHg. Moderate mitral annular calcification present. Moderate mitral regurgitation is present. Moderate to severe tricuspid regurgitation present. There is severe pulmonary hypertension. The r ight ventricular systolic pressure, as measured by Doppler, is 67.72mmHg. There is no pulmonic regurgitation present. The aortic root size is normal. The inferior vena cava is mildly dilated. There is a trivial pericardial effusion present. CONCLUSIONS -------- 1. Sinus rhythm with extra systolic beats. 2. This was a technically good study. 3. The left ventricular size is normal. 4. There is mild concentric left ventricular hypertrophy. 5. Overall left ventricular systolic function is low-normal with, an EF between 50 - 55 %. 6. Increased Lap Grade II Diastolic Dysfunction. 7. The right ventricle is mildly enlarged. 8. LA is severely dilated >40 ml/m2 9. The right atrial size is normal. 10. Interatrial and interventricular septum intact. 11. There is mild aortic regurgitation. 12. There is mild aortic stenosis present. 13. Peak/mean gradient across the Aortic Valve is 27.15mmHg / 14.57mmHg. 14. Moderate mitral annular calcification present. 15. Moderate mitral regurgitation is present. 16. Moderate to severe tricuspid regurgitation present. 17. There is severe pulmonary hypertension. 18. The right ventricular systolic pressure, as measured by Doppler, is 67.72mmHg. 19. There is no pulmonic regurgitation present. 20. The aortic root size is normal. 21. The inferior vena cava is mildly dilated. 22. There is a trivial pericardial effusion present. INTERNATIONAL SOURCING MANAGER: Zayra Zuniga RDCS
[2019-12-25] MEDS: TAMSULOSIN 0.4 MG CAP.ER.24H PO SCH (20:48)
[2019-12-25] MEDS: ATORVASTATIN 20 MG TAB PO SCH (20:48)
[2019-12-25 21:03] LABS: Glucose,Whole Blood 239 mg/dL (75-99)
[2019-12-26 06:05] LABS: Glucose,Whole Blood 290 mg/dL (75-99)
[2019-12-26] MEDS: hydrALAZINE HCL 25 MG TAB PO SCH ×3 (06:50→20:51)
[2019-12-26] MEDS: INSULIN ASPART (NovoLOG) 100 UNIT/ML VIAL SQ SCH ×4 (06:50→20:52)
[2019-12-26 07:04] LABS: Potassium 3.5 mmol/L (3.5-5.1)
[2019-12-26] MEDS: ALBUTEROL NEBULIZED 2.5 MG/3 ML INHALATION PRN ×2 (09:26→21:09)
[2019-12-26] MEDS: ISOSORBIDE MONONITRATE ER 30 MG TAB.ER.24H PO SCH (10:11)
[2019-12-26] MEDS: POTASSIUM CHLORIDE ER 20 MEQ TAB.ER PO SCH ×4 (10:11→20:54)
[2019-12-26] MEDS: ESCITALOPRAM 5 MG TAB PO SCH (10:11)
[2019-12-26] MEDS: FUROSEMIDE 10 MG/ML 4 ML VIAL IV SCH (10:12)
[2019-12-26] MEDS: MULTIVITAMINS, THERA 1 EACH TAB PO SCH (10:12)
[2019-12-26] MEDS: buPROPion XL 150 MG TAB.ER.24H PO SCH (10:12)
[2019-12-26] MEDS: LINAGLIPTIN 5 MG TABLET PO SCH (10:12)
[2019-12-26] MEDS: METOPROLOL TARTRATE 25 MG TAB PO SCH ×2 (10:13→20:51)
--- NOTE | 2019-12-26 10:26 | P.PN ---
Subjective Progress Note Date: 12/26/19 74-year-old white male patient with history of hypertension, hyperlipidemia, diabetes mellitus type 2, former smoker, anxiety, COPD recently started on home oxygen, was brought in for evaluation of worsening shortness of breath from [facility]CF. He did have some chest discomfort which is relieved by nitroglycerin, denied any cough, he does have some chronic swelling in his lower extremities. We have last seen the patient back in July 2019 when she was hospitalized for acute pulmonary edema secondary to hypertensive emergency. Chest x-ray showed mixed interstitial/alveolar disease bilaterally, moderate size pleural effusions with adjacent passive atelectasis, findings most compatible with congestive heart failure exacerbation. EKG showed sinus tachycardia with nonspecific ST abnormality. Lab work showed a white blood cell count of 12.5, hemoglobin of 9.0, INR 0.9, electrolytes within normal limits, BUN is 38, and creatinine is 1.92, proBNP was some thousand 370, troponins are positive at 0.0-9, and 0.046. On admission blood pressure was 179/99, patient is afebrile, he was placed on BiPAP support, he was given nitroglycerin drip for better blood pressure control, he takes Lasix 40 mg twice daily. He denies any cough or congestion, denies any hemoptysis, denies any wheezing. At the time of my evaluation patient is feeling better, he is currently on 2 L of oxygen denies any worsening dyspnea, lung sounds reveal bibasilar crackles, no significant wheezing, blood pressure is currently 132/70, patient remains afebrile. We will continue diuresing the patient, and his oral Lasix has been switched to IV Lasix. On O2 2019 patient seen in follow-up on selective care unit, he is breathing easier today, vital signs are stable, he is been diuresed, he remains on 40 mg of Lasix 3 times daily. he is in -1230 mL fluid balance over the last 24 hours, today's chest x-ray shows improving left-sided effusion, and improved bilateral central perihilar edema related to resolving CHF exacerbation. He is on 6 L of oxygen his pulse ox is 97%, he has been wearing BiPAP as needed and at bedtime, currently off BiPAP, his been up out of bed to use the commode and tolerating activity fairly well. No complaints of chest pain, no hemoptysis. D-dimer came back elevated at 4.28 however patient's renal final is impaired. We will obtain lower extremity Dopplers. On 12/26/2019 patient seen in follow-up on selective care unit. He is awake and alert, pulse ox on 4 L of oxygen is 96%, he normally wears 2 L of oxygen at home. He is breathing much easier, he's been diuresed, he is in -1230 mL fluid balance, no lower extremity edema, no abdominal distention. He was able to get up and take a shower today, todays is labs have been reviewed, showing sodium of 137, potassium is 3.5, chloride is 95, CO2 36, BUN is 38, creatinine is 1.91. Yesterday patient is d-dimer came back elevated however lower extremity Dopplers were negative for DVT, the index of suspicion for thromboembolic event is low. Vital signs have been stable, we'll increase the patient's activity as tolerated, he is anticipated to go back to [facility] on the [address] sometime today. Objective - Vital Signs Vital signs: Vital Signs Temp 97.5 F L 12/26/19 09:20 Pulse 89 12/26/19 09:57 Resp 20 12/26/19 09:20 BP 111/54 12/26/19 10:14 Pulse Ox 96 12/26/19 09:57 Intake & Output 12/25/19 12/26/19 12/26/19 18:59 06:59 18:59 Intake Total 1320 Output Total 100 1050 Balance 1220 -1050 Weight 61.4 kg Intake: Oral 1320 Output: Urine 100 1050 Other: # Voids 600 - Exam GENERAL EXAM: Alert, very pleasant, 74-year-old white female, currently on 4 L of oxygen, pulse ox of 97%, comfortable in no apparent distress. HEAD: Normocephalic/atraumatic. EYES: Normal reaction of pupils, equal size. Conjunctiva pink, sclera white. NOSE: Clear with pink turbinates. THROAT: No erythema or exudates. NECK: No masses, no JVD, no thyroid enlargement, no adenopathy. CHEST: No chest wall deformity. Symmetrical expansion. LUNGS: Equal air entry with bibasilar crackles, but no wheeze, rhonchi or dullness. CVS: Regular rate and rhythm, normal S1 and S2, no gallops, no murmurs, no rubs ABDOMEN: Soft, nontender. No hepatosplenomegaly, normal bowel sounds, no g uarding or rigidity. EXTREMITIES: No clubbing, no edema, no cyanosis, 2+ pulses and upper and lower extremities. MUSCULOSKELETAL: Muscle strength and tone normal. SPINE: No scoliosis or deformity SKIN: No rashes CENTRAL NERVOUS SYSTEM: Alert and oriented -3. No focal deficits, tone is normal in all 4 extremities. PSYCHIATRIC: Alert and oriented -3. Appropriate affect. Intact judgment and insight. - Labs CBC & Chem 7: 12/24/19 05:50 12/26/19 06:25 Labs: Abnormal Lab Results - Last 24 Hours (Table) 12/25/19 12/25/19 12/25/19 Range/Units 09:14 12:23 16:37 Chloride (98-107) mmol/L Carbon Dioxide 33 H (22-30) mmol/L BUN 39 H (9-20) mg/dL Creatinine 1.90 H (0.66-1.25) mg/dL Glucose 266 H (74-99) mg/dL POC Glucose (mg/dL) 336 H 101 H (75-99) mg/dL Calcium (8.4-10.2) mg/dL 12/25/19 12/26/19 12/26/19 Range/Units 20:30 05:50 06:25 Chloride 95 L (98-107) mmol/L Carbon Dioxide 36 H (22-30) mmol/L BUN 38 H (9-20) mg/dL Creatinine 1.91 H (0.66-1.25) mg/dL Glucose 204 H (74-99) mg/dL POC Glucose (mg/dL) 239 H 290 H (75-99) mg/dL Calcium 8.0 L (8.4-10.2) mg/dL Assessment and Plan Plan: Assessment: #1. Acute dyspnea related to acute exacerbation of chronic congestive heart failure with previously documented diastolic dysfunction, improved with diuresis #2. Mild aortic regurgitation, mild tricuspid and mild mitral regurgitation no evidence of pulmonary hypertension #3. Hypertensive emergency and pulmonary edema, improved with diuresis #4. Chronic hypercapnic and hypoxemic respiratory failure related to COPD #5. Elevated troponin likely related to acute exacerbation of CHF #6. Hypertension #7. Diabetes mellitus type 2 #8. Chronic renal failure stage IIIB #9. Hypercholesterolemia #10. History of depression #11. 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 Elevated d-dimer, rule out thromboembolic event, the patient has impaired renal function, we'll obtain lower extremity Dopplers Plan: Patient continues to diurese, maintaining negative fluid balance, breathing easier, FiO2 is being weaned down patient is down to 4 L, only wears 2 L, he is close to his baseline, doing well, lower extremity Dopplers were noted, they're negative, suspicion for thromboembolic event is low. Patient is anticipated to go to [facility] on the [place] today, cleared for discharge from pulmonary perspective. I performed a history & physical examination of the patient and discussed their management with my nurse practitioner, Valorie Gilbert. I reviewed the nurse practitioner's note and agree with the documented findings and plan of care. Lung sounds are positive for bibasilar crackles The findings and the impression was discussed with the patient. I attest to the documentation by the nurse practitioner. Time with Patient: Less than 30
[2019-12-26] MEDS: ASPIRIN 81 MG PO SCH (10:57)
[2019-12-26 12:21] LABS: Glucose,Whole Blood 223 mg/dL (75-99)
--- NOTE | 2019-12-26 12:28 | P.PN ---
Subjective Progress Note Date: 12/26/19 74-year-old male known to the practice with history of hypertension hyperlipidemia diabetes mellitus type 2 former smoker anxiety COPD stage III chronic renal insufficiency patient was recently discharged from [facility] with pneumonia, early dementia, at that time a Montral cognitive scoring was done and the patient was in 11 out of 30. Patient states he did have some chest discomfort relieved by nitro denies cough does complain of some chronic swelling the lower extremes. Patient was last seen here in July for acute pulmonary edema secondary to hypertensive emergency. Patient has a long- standing history of not taking appropriate medications in the past patient lives I himself and was afraid that medications were costing too much afraid that he might have side effects if he took them and had found himself admitted to the hospital 3 times in 6 weeks all 3 were ICU admissions, discussed at length the need to take meds appropriately patient well is saying that he understood would only take them when in the hospital and was stopped taking all his meds once he arrived home typically blood pressures would skyrocket EKG shows sinus tachycardia with nonspecific ST changes lab work white count was 12.5 hemoglobin was 9.0 which was the same hemoglobin when patient was discharged from [facility] INR 0.9 electrolytes within normal limits by mouth and 38 creatinine is 1.9 which is back to baseline BMP was 370 troponins 0.09 and 0.046. Pressure at admission was 1 7999 patient was afebrile was placed on BiPAP given nitroglycerin for better blood pressure control patient takes Lasix 40 mg twice daily denies cough congestion denies hemoptysis and or wheezing currently on 2 L of oxygen blood pressure is improved we'll reevaluate patient tomorrow 12/25/2019 elevated d-dimer, Doppler of lower extremities pending, creatinine 1.9. Diuresing well on Lasix IV push with 24-hour I&O reflecting a negative fluid balance. Breathing improving, maintaining O2 sats in the 90s on 6 L nasal cannula. Psychiatry evaluation pending. 12/26/2019 bilateral Doppler reported no acute DVT. Breathing continues to improve, oxygen titrated down to 4 L nasal cannula, maintaining O2 sats in the 90s. Creatinine 1.91. Denies chest pain, palpitations or increasing shortness of breath. Objective - Vital Signs Vital signs: Vital Signs Temp 98.1 F 12/26/19 11:27 Pulse 86 12/26/19 11:27 Resp 16 12/26/19 11:27 BP 113/66 12/26/19 11:27 Pulse Ox 98 12/26/19 11:27 Intake & Output 12/25/19 12/26/19 12/26/19 18:59 06:59 18:59 Intake Total 1320 360 Output Total 100 1050 Balance 1220 -1050 360 Weight 61.4 kg Intake: Oral 1320 360 Output: Urine 100 1050 Other: # Voids 600 - Exam General: [Patient awake, alert and oriented times 3. Patient in no acute distress.] HEENT: [PERRL. EOMI. No pharyngeal erythema or exudate.] Neck: [No adenopathy.] Cardiac: [Heart regular in rate and rhythm. No S3. No S4. No clicks, rubs. No murmur.] Lungs: Diminished with fine bibasilar crackles Abdomen: [No mass. No organomegaly. Bowel sounds presnt and normoactive in all 4 quadrants.] Extremes: [No edema no cyanosis no claudication normal pulses] Musculoskeletal: [No joint erythema, edema or tenderness.] Skin: [No rash.] Neurologic: [No lateralizing deficits. CN II - XII grossly intact.] Lymphatic: [No adenopathy.] - Labs CBC & Chem 7: 12/24/19 05:50 12/26/19 06:25 Labs: Abnormal Lab Results - Last 24 Hours (Table) 12/25/19 12/25/19 12/25/19 Range/Units 12:23 16:37 20:30 Chloride (98-107) mmol/L Carbon Dioxide (22-30) mmol/L BUN (9-20) mg/dL Creatinine (0.66-1.25) mg/dL Glucose (74-99) mg/dL POC Glucose (mg/dL) 336 H 101 H 239 H (75-99) mg/dL Calcium (8.4-10.2) mg/dL 12/26/19 12/26/19 Range/Units 05:50 06:25 Chloride 95 L (98-107) mmol/L Carbon Dioxide 36 H (22-30) mmol/L BUN 38 H (9-20) mg/dL Creatinine 1.91 H (0.66-1.25) mg/dL Glucose 204 H (74-99) mg/dL POC Glucose (mg/dL) 290 H (75-99) mg/dL Calcium 8.0 L (8.4-10.2) mg/dL Assessment and Plan Assessment: (1) Cognitive impairment Current Visit: Yes Status: Acute Code(s): R41.89 - OTH SYMPTOMS AND SIGNS W COGNITIVE FUNCTIONS AND AWARENESS SNOMED Code(s): 574396346 (2) Acute kidney injury Current Visit: No Status: Acute Code(s): N17.9 - ACUTE KIDNEY FAILURE, UNSPECIFIED SNOMED Code(s): 37242907 (3) Back pain Current Visit: No Status: Acute Code(s): M54.9 - DORSALGIA, UNSPECIFIED SNOMED Code(s): 255446785 (4) Chest pain Current Visit: No Status: Acute Code(s): R07.9 - CHEST PAIN, UNSPECIFIED SNOMED Code(s): 87008838 (5) Chronic diastolic CHF (congestive heart failure), NYHA class 2 Current Visit: No Status: Acute Code(s): I50.32 - CHRONIC DIASTOLIC (CONGESTIVE) HEART FAILURE SNOMED Code(s): 057650500 (6) Chronic renal failure Current Visit: No Status: Acute Code(s): N18.9 - CHRONIC KIDNEY DISEASE, UNSPECIFIED SNOMED Code(s): 52896930 (7) Diabetes mellitus Current Visit: No Status: Acute Code(s): E11.9 - TYPE 2 DIABETES MELLITUS WITHOUT COMPLICATIONS SNOMED Code(s): 77639773 (8) Hypertension Current Visit: No Status: Acute Code(s): I10 - ESSENTIAL (PRIMARY) HYPERTENSION SNOMED Code(s): 69205270 (9) Hypertensive emergency Current Visit: No Status: Acute Code(s): I16.1 - HYPERTENSIVE EMERGENCY SN OMED Code(s): 737129926647204 (10) Poor historian Current Visit: No Status: Acute Code(s): Z78.9 - OTHER SPECIFIED HEALTH STATUS SNOMED Code(s): 623062120 Plan: Continue on current medication regime ,monitoring and symptomatic treatment. Continue with weaning of O2 as per parameters established by pulmonary. Converted to oral Lasix.Close monitoring of renal function with repeat labs ordered for a.m. Maintain consistent carb diet. Discharge planning in progress for her [facility] subacute rehab pending authorization. polysilicon preparation worker assisting with guardianship need. The impression and plan of care has been dictated as directed. : I performed a history and examination of this patient, discussed the same with the dictator. I agree with the dictator's note ,documented as a scribe. Any additional findings or plans will be noted.
[2019-12-26] MEDS: LISINOPRIL 10 MG TAB PO SCH (12:34)
--- NOTE | 2019-12-26 12:49 | P.PN ---
Subjective Progress Note Date: 12/26/19 Principal diagnosis: Congestive heart failure secondary to diastole dysfunction This is a pleasant 74-year-old gentleman with history of heart failure with preserved LV function, hypertension, chronic kidney disease, as well as multiple comorbid conditions was admitted to the hospital with heart failure exacerbation. He was seen today, 12/26/2019. He is feeling better. He would like to be discharged home. The shortness of breath is better. The lower extremities edema is better. He was started on Lasix by mouth today after he was on IV yesterday. From a perivascular standpoint of view, the patient can be discharged home Objective - Vital Signs Vital signs: Vital Signs Temp 98.1 F 12/26/19 11:27 Pulse 86 12/26/19 11:27 Resp 16 12/26/19 11:27 BP 113/66 12/26/19 11:27 Pulse Ox 98 12/26/19 11:27 Intake & Output 12/25/19 12/26/19 12/26/19 18:59 06:59 18:59 Intake Total 1320 360 Output Total 100 1050 Balance 1220 -1050 360 Weight 61.4 kg Intake: Oral 1320 360 Output: Urine 100 1050 Other: # Voids 600 - Constitutional General appearance: Present: no acute distress - Respiratory Respiratory: bilateral: diminished - Cardiovascular Rhythm: regular Heart sounds: normal: S1, S2 - Labs CBC & Chem 7: 12/24/19 05:50 12/26/19 06:25 Labs: Abnormal Lab Results - Last 24 Hours (Table) 12/25/19 12/25/19 12/26/19 Range/Units 16:37 20:30 05:50 Chloride (98-107) mmol/L Carbon Dioxide (22-30) mmol/L BUN (9-20) mg/dL Creatinine (0.66-1.25) mg/dL Glucose (74-99) mg/dL POC Glucose (mg/dL) 101 H 239 H 290 H (75-99) mg/dL Calcium (8.4-10.2) mg/dL 12/26/19 12/26/19 Range/Units 06:25 12:13 Chloride 95 L (98-107) mmol/L Carbon Dioxide 36 H (22-30) mmol/L BUN 38 H (9-20) mg/dL Creatinine 1.91 H (0.66-1.25) mg/dL Glucose 204 H (74-99) mg/dL POC Glucose (mg/dL) 223 H (75-99) mg/dL Calcium 8.0 L (8.4-10.2) mg/dL Assessment and Plan Assessment: Assessment #1 congestive heart failure exacerbation secondary to diastole dysfunction #2 hypertension #3 multiple comorbid conditions Plan #1 agree about starting the patient on Lasix by mouth #2 the patient can be discharged home
[2019-12-26] MEDS ORDERED: Potassium Replacement Protocol 1 EACH MISC MISCELLANE PRN ×2 (15:08→15:26)
[2019-12-26] MEDS: FUROSEMIDE 40 MG TAB PO SCH (16:55)
[2019-12-26 17:10] LABS: Glucose,Whole Blood 209 mg/dL (75-99)
[2019-12-26 20:30] LABS: Glucose,Whole Blood 183 mg/dL (75-99)
[2019-12-26] MEDS: TAMSULOSIN 0.4 MG CAP.ER.24H PO SCH (20:51)
[2019-12-26] MEDS: ATORVASTATIN 20 MG TAB PO SCH (20:51)
[2019-12-27 05:53] LABS: Glucose,Whole Blood 195 mg/dL (75-99)
[2019-12-27] MEDS: hydrALAZINE HCL 25 MG TAB PO SCH ×3 (06:06→20:20)
[2019-12-27] MEDS: INSULIN ASPART (NovoLOG) 100 UNIT/ML VIAL SQ SCH ×4 (06:06→20:20)
[2019-12-27 06:48] LABS: Calcium 8.3 mg/dL (8.4-10.2); Potassium 4.5 mmol/L (3.5-5.1)
[2019-12-27] MEDS: ALBUTEROL NEBULIZED 2.5 MG/3 ML INHALATION PRN ×2 (09:18→20:59)
[2019-12-27] MEDS: ASPIRIN 81 MG PO SCH (09:30)
[2019-12-27] MEDS: ESCITALOPRAM 5 MG TAB PO SCH (09:30)
[2019-12-27] MEDS: LINAGLIPTIN 5 MG TABLET PO SCH (09:30)
[2019-12-27] MEDS: ISOSORBIDE MONONITRATE ER 30 MG TAB.ER.24H PO SCH (09:30)
[2019-12-27] MEDS: FUROSEMIDE 40 MG TAB PO SCH ×2 (09:30→17:39)
[2019-12-27] MEDS: buPROPion XL 150 MG TAB.ER.24H PO SCH (09:30)
[2019-12-27] MEDS: METOPROLOL TARTRATE 25 MG TAB PO SCH ×2 (09:30→20:20)
[2019-12-27] MEDS: MULTIVITAMINS, THERA 1 EACH TAB PO SCH (09:30)
[2019-12-27] MEDS: LISINOPRIL 10 MG TAB PO SCH (09:30)
[2019-12-27] MEDS: POTASSIUM CHLORIDE ER 20 MEQ TAB.ER PO SCH ×2 (09:30→20:20)
--- NOTE | 2019-12-27 11:33 | P.PN ---
Subjective Progress Note Date: 12/27/19 The patient was interviewed and examined resting comfortably recliner chair. He is currently on 2 L nasal cannula. He denies any chest pain, chest pressure, palpitations, dyspnea, dizziness, or vertigo. He states he is eager to go home. GENERAL: Well-appearing, well-nourished and in no acute distress. NECK: Supple without JVD or thyromegaly. LUNGS: Breath sounds clear to auscultation bilaterally. Respiration equal and unlabored. No wheezes, rales or rhonchi. HEART: Regular rate and rhythm. Systolic murmur audible. No rubs or gallops. S1 and S2 heard. EXTREMITIES: Normal range of motion, no edema. No clubbing or cyanosis. Peripheral pulses intact and strong. Laboratory data: Sodium 138, potassium 4.5, BUN 38, creatinine 1.94 Vital signs: Blood pressure 114/55, heart rate 87, respirations 16, temperature 98.2 Fahrenheit, 98% on 3 L nasal cannula Assessment: #1 congestive heart failure exacerbation, diastolic dysfunction #2 hypertension #3 COPD, on home oxygen Plan: Continue current medication regimen. Patient is cleared to be discharged from the cardiac standpoint. We will be signing off for outpatient follow-up. Objective - Vital Signs Vital signs: Vital Signs Temp 98.2 F 12/27/19 08:20 Pulse 87 12/27/19 08:20 Resp 16 12/27/19 08:20 BP 114/55 12/27/19 08:20 Pulse Ox 98 12/27/19 08:20 Intake & Output 12/26/19 12/27/19 12/27/19 18:59 06:59 18:59 Intake Total 960 120 Output Total 500 450 Balance 460 -330 Weight 61.2 kg Intake: Oral 960 120 Output: Urine 500 450 Other: Voiding Method Urinal Urinal # Voids 1 1 - Labs CBC & Chem 7: 12/24/19 05:50 12/27/19 06:03 Labs: Abnormal Lab Results - Last 24 Hours (Table) 12/26/19 12/26/19 12/26/19 Range/Units 12:13 17:08 20:29 Chloride (98-107) mmol/L Carbon Dioxide (22-30) mmol/L BUN (9-20) mg/dL Creatinine (0.66-1.25) mg/dL Glucose (74-99) mg/dL POC Glucose (mg/dL) 223 H 209 H 183 H (75-99) mg/dL Calcium (8.4-10.2) mg/dL 12/27/19 12/27/19 Range/Units 05:52 06:03 Chloride 97 L (98-107) mmol/L Carbon Dioxide 36 H (22-30) mmol/L BUN 38 H (9-20) mg/dL Creatinine 1.94 H (0.66-1.25) mg/dL Glucose 176 H (74-99) mg/dL POC Glucose (mg/dL) 195 H (75-99) mg/dL Calcium 8.3 L (8.4-10.2) mg/dL
[2019-12-27 12:21] LABS: Glucose,Whole Blood 246 mg/dL (75-99)
--- NOTE | 2019-12-27 12:34 | P.PN ---
Subjective Progress Note Date: 12/27/19 Principal diagnosis: Heart failure secondary to diastolic dysfunction, chronic COPD Patient's awake alert good spirits vital signs stable afebrile Objective - Vital Signs Vital signs: Vital Signs Temp 98.2 F 12/27/19 08:20 Pulse 77 12/27/19 11:15 Resp 18 12/27/19 11:15 BP 129/60 12/27/19 11:15 Pulse Ox 92 L 12/27/19 11:15 Intake & Output 12/26/19 12/27/19 12/27/19 18:59 06:59 18:59 Intake Total 960 120 240 Output Total 500 450 1 Balance 460 -330 239 Weight 61.2 kg Intake: Oral 960 120 240 Output: Urine 500 450 Stool 1 Other: Voiding Method Urinal Urinal # Voids 1 1 2 - Exam General: [Patient awake, alert and oriented times 3. Patient in no acute distress.] HEENT: [PERRL. EOMI. No pharyngeal erythema or exudate.] Neck: [No adenopathy.] Cardiac: [Heart regular in rate and rhythm. No S3. No S4. No clicks, rubs. No murmur.] Lungs: There bilaterally slightly diminished fine bibasilar crackles Abdomen: [No mass. No organomegaly. Bowel sounds presnt and normoactive in all 4 quadrants.] Extremes: [No edema no cyanosis no claudication normal pulses] : Normal male genitalia Musculoskeletal: [No joint erythema, edema or tenderness.] Skin: [No rash.] Neurologic: [No lateralizing deficits. CN II - XII grossly intact.] Lymphatic: [No adenopathy.] - Labs CBC & Chem 7: 12/24/19 05:50 12/27/19 06:03 Labs: Abnormal Lab Results - Last 24 Hours (Table) 12/26/19 12/26/19 12/27/19 Range/Units 17:08 20:29 05:52 Chloride (98-107) mmol/L Carbon Dioxide (22-30) mmol/L BUN (9-20) mg/dL Creatinine (0.66-1.25) mg/dL Glucose (74-99) mg/dL POC Glucose (mg/dL) 209 H 183 H 195 H (75-99) mg/dL Calcium (8.4-10.2) mg/dL 12/27/19 12/27/19 Range/Units 06:03 12:19 Chloride 97 L (98-107) mmol/L Carbon Dioxide 36 H (22-30) mmol/L BUN 38 H (9-20) mg/dL Creatinine 1.94 H (0.66-1.25) mg/dL Glucose 176 H (74-99) mg/dL POC Glucose (mg/dL) 246 H (75-99) mg/dL Calcium 8.3 L (8.4-10.2) mg/dL Assessment and Plan (1) Cognitive impairment Current Visit: Yes Status: Acute Code(s): R41.89 - OTH SYMPTOMS AND SIGNS W COGNITIVE FUNCTIONS AND AWARENESS SNOMED Code(s): 384349671 (2) Acute kidney injury Current Visit: No Status: Acute Code(s): N17.9 - ACUTE KIDNEY FAILURE, UNSPECIFIED SNOMED Code(s): 14577395 (3) Back pain Current Visit: No Status: Acute Code(s): M54.9 - DORSALGIA, UNSPECIFIED SNOMED Code(s): 843017090 (4) Chest pain Current Visit: No Status: Acute Code(s): R07.9 - CHEST PAIN, UNSPECIFIED SNOMED Code(s): 87370718 (5) Chronic diastolic CHF (congestive heart failure), NYHA class 2 Current Visit: No Status: Acute Code(s): I50.32 - CHRONIC DIASTOLIC (CONGESTIVE) HEART FAILURE SNOMED Code(s): 495858707 (6) Chronic renal failure Current Visit: No Status: Acute Code(s): N18.9 - CHRONIC KIDNEY DISEASE, UNSPECIFIED SNOMED Code(s): 04759075 (7) Diabetes mellitus Current Visit: No Status: Acute Code(s): E11.9 - TYPE 2 DIABETES MELLITUS WITHOUT COMPLICATIONS SNOMED Code(s): 34194666 (8) Hypertension Current Visit: No Status: Acute Code(s): I10 - ESSENTIAL (PRIMARY) HYPERTENSION SNOMED Code(s): 91870188 (9) Hypertensive emergency Current Visit: No Status: Acute Code(s): I16.1 - HYPERTENSIVE EMERGENCY SNOMED Code(s): 547471189657409 (10) Poor historian Current Visit: No Status: Acute Code(s): Z78.9 - OTHER SPECIFIED HEALTH STATUS SNOMED Code(s): 007268844 Plan: Dyspnea related to acute exacerbation chronic heart failure with previous documented diastolic dysfunction Mild aortic regurg mild tricuspid and mitral regurg no evidence of pulmonary hypertension Hypertensive emergency pulmonary edema chronic hypercapnic hypoxemia respiratory failure related to COPD Elevated troponins probably secondary to exacerbation of heart failure Known hypertension Diabetes mellitus chronic renal failure stage III B Hypercholesterolemia Significant cognitive impairment last [facility] cognitive assessments approximately 3 weeks ago at [facility] was 11 out of 30 With significant poor executive function and executive decision making Poor historian Significant noncompliance when allowed to live by self Patient's only known relative is his sister that lives in [place] Plan nebulized bronchodilators BiPAP as needed by pressure well controlled at this time patient breathing easier Plan on significant control of blood pressure Have psychiatry evaluate patient for her depression and anxiety and assess cognitive impairment Obtain the guardian for patient Anticipate return to low-level rehab at [facility] Time with Patient: Greater than 30
[2019-12-27 17:04] LABS: Glucose,Whole Blood 124 mg/dL (75-99)
[2019-12-27 20:04] LABS: Glucose,Whole Blood 270 mg/dL (75-99)
[2019-12-27] MEDS: ATORVASTATIN 20 MG TAB PO SCH (20:20)
[2019-12-27] MEDS: TAMSULOSIN 0.4 MG CAP.ER.24H PO SCH (20:20)
[2019-12-28 05:57] LABS: Glucose,Whole Blood 180 mg/dL (75-99)
[2019-12-28] MEDS: hydrALAZINE HCL 25 MG TAB PO SCH ×3 (06:01→20:54)
[2019-12-28] MEDS: INSULIN ASPART (NovoLOG) 100 UNIT/ML VIAL SQ SCH ×4 (06:02→20:54)
[2019-12-28] MEDS: ESCITALOPRAM 5 MG TAB PO SCH (08:00)
[2019-12-28] MEDS: buPROPion XL 150 MG TAB.ER.24H PO SCH (08:00)
[2019-12-28] MEDS: MULTIVITAMINS, THERA 1 EACH TAB PO SCH (08:01)
[2019-12-28] MEDS: LINAGLIPTIN 5 MG TABLET PO SCH (08:01)
[2019-12-28] MEDS: METOPROLOL TARTRATE 25 MG TAB PO SCH ×2 (08:01→20:54)
[2019-12-28] MEDS: ASPIRIN 81 MG PO SCH (08:01)
[2019-12-28] MEDS: FUROSEMIDE 40 MG TAB PO SCH ×2 (08:01→17:45)
[2019-12-28] MEDS: ISOSORBIDE MONONITRATE ER 30 MG TAB.ER.24H PO SCH (08:01)
[2019-12-28] MEDS: POTASSIUM CHLORIDE ER 20 MEQ TAB.ER PO SCH ×2 (08:01→20:54)
[2019-12-28] MEDS: LISINOPRIL 10 MG TAB PO SCH (08:01)
[2019-12-28] MEDS: ALBUTEROL NEBULIZED 2.5 MG/3 ML INHALATION PRN (08:27)
--- NOTE | 2019-12-28 11:03 | P.PN ---
Subjective Progress Note Date: 12/28/19 Principal diagnosis: Chronic COPD with heart failure secondary to diastolic dysfunction Patient awake alert 3, sitting up in chair, vital signs stable afebrile currently on 2 L nasal cannula Objective - Vital Signs Vital signs: Vital Signs Temp 98.3 F 12/28/19 08:00 Pulse 84 12/28/19 08:39 Resp 16 12/28/19 08:00 BP 105/61 12/28/19 08:00 Pulse Ox 98 12/28/19 08:00 Intake & Output 12/27/19 12/28/19 12/28/19 18:59 06:59 18:59 Intake Total 240 Output Total 151 450 Balance 89 -450 Weight 61.5 kg Intake: Oral 240 Output: Urine 150 450 Stool 1 Other: Voiding Method Urinal Urinal # Voids 1 1 - Exam GENERAL: Well-appearing, well-nourished and in no acute distress, awake alert and oriented 3 sitting up in chair. HEAD: Atraumatic, normocephalic. EYES: Pupils equal round and reactive to light, extraocular movements intact, sclera anicteric, conjunctiva are normal. ENT:nares patent, oropharynx clear without exudates. Moist mucous membranes. NECK: Normal range of motion, supple without lymphadenopathy or JVD, no thyromegaly LUNGS: Breath sounds essentially clear with fine basilar crackles bilaterally. HEART: Regular rate and rhythm without murmurs, rubs or gallops.S1S2 Normal ABDOMEN: Soft, nontender, normoactive bowel sounds. No guarding, no rebound. No masses appreciated. EXTREMITIES: Normal range of motion, no pitting or edema. No clubbing or cyanosis. NEUROLOGICAL: Cranial nerves II through XII grossly intact. Normal speech, normal gait. PSYCH: Normal mood, normal affect. SKIN: Warm, Dry, normal turgor, no rashes or lesions noted. : Normal male genitalia - Labs CBC & Chem 7: 12/24/19 05:50 12/27/19 06:03 Labs: Abnormal Lab Results - Last 24 Hours (Table) 12/27/19 12/27/19 12/27/19 Range/Units 12:19 17:02 20:03 POC Glucose (mg/dL) 246 H 124 H 270 H (75-99) mg/dL 12/28/19 Range/Units 05:56 POC Glucose (mg/dL) 180 H (75-99) mg/dL Assessment and Plan (1) Cognitive impairment Current Visit: Yes Status: Acute Code(s): R41.89 - OTH SYMPTOMS AND SIGNS W COGNITIVE FUNCTIONS AND AWARENESS SNOMED Code(s): 433786611 (2) Acute kidney injury Current Visit: No Status: Acute Code(s): N17.9 - ACUTE KIDNEY FAILURE, UNSPECIFIED SNOMED Code(s): 10423039 (3) Back pain Current Visit: No Status: Acute Code(s): M54.9 - DORSALGIA, UNSPECIFIED SNOMED Code(s): 224961041 (4) Chest pain Current Visit: No Status: Acute Code(s): R07.9 - CHEST PAIN, UNSPECIFIED SNOMED Code(s): 25631722 (5) Chronic diastolic CHF (congestive heart failure), NYHA class 2 Current Visit: No Status: Acute Code(s): I50.32 - CHRONIC DIASTOLIC (CONGESTIVE) HEART FAILURE SNOMED Code(s): 388876322 (6) Chronic renal failure Current Visit: No Status: Acute Code(s): N18.9 - CHRONIC KIDNEY DISEASE, UNSPECIFIED SNOMED Code(s): 58107949 (7) Diabetes mellitus Current Visit: No Status: Acute Code(s): E11.9 - TYPE 2 DIABETES MELLITUS WITHOUT COMPLICATIONS SNOMED Code(s): 55571301 (8) Hypertension Current Visit: No Status: Acute Code(s): I10 - ESSENTIAL (PRIMARY) HYPERTENSION SNOMED Code(s): 86869111 (9) Hypertensive emergency Current Visit: No Status: Acute Code(s): I16.1 - HYPERTENSIVE EMERGENCY SNOMED Code(s): 756961016793753 (10) Poor historian Current Visit: No Status: Acute Code(s): Z78.9 - OTHER SPECIFIED HEALTH STATUS SNOMED Code(s): 197570158 Plan: Documented diastolic dysfunction dyspnea related to acute exacerbation of chronic heart failure. Mild aortic tricuspid and mitral regurg no evidence of pulmonary hypertension Hypertensive emergency pulmonary edema and chronic hypercapnia hypoxemia respiratory failure related to COPD Exacerbation of heart failure, secondary increase in troponins Known hypertension controlled with current medicines Hypercholesterolemia Diabetes myelitis stage III chronic kidney disease Significant cognitive impairment last [facility] cognitive assessment Anderson of 30 which was completed 3 weeks ago It was shown us with significant poor executive function and executive decision making Significant noncompliance and allowed to live by self He is a poor historian Pulses no problems with his sister that lives in [place] We'll anticipate return to [facility] on Sunday We'll continued nebulized bronchodilators on BiPAP Obtaining guardian Time with Patient: Greater than 30
[2019-12-28 12:37] LABS: Glucose,Whole Blood 253 mg/dL (75-99)
[2019-12-28 17:07] LABS: Glucose,Whole Blood 234 mg/dL (75-99)
[2019-12-28 20:34] LABS: Glucose,Whole Blood 217 mg/dL (75-99)
[2019-12-28] MEDS: TAMSULOSIN 0.4 MG CAP.ER.24H PO SCH (20:54)
[2019-12-28] MEDS: ATORVASTATIN 20 MG TAB PO SCH (20:54)
[2019-12-29 06:05] LABS: Glucose,Whole Blood 232 mg/dL (75-99)
[2019-12-29] MEDS: INSULIN ASPART (NovoLOG) 100 UNIT/ML VIAL SQ SCH ×2 (06:32→12:18)
[2019-12-29] MEDS: hydrALAZINE HCL 25 MG TAB PO SCH ×2 (06:32→10:34)
[2019-12-29 09:04] VITALS: BP 126/69; RESP 17; TEMP 98
[2019-12-29] MEDS: ASPIRIN 81 MG PO SCH (10:32)
[2019-12-29] MEDS: MULTIVITAMINS, THERA 1 EACH TAB PO SCH (10:32)
[2019-12-29] MEDS: ISOSORBIDE MONONITRATE ER 30 MG TAB.ER.24H PO SCH (10:32)
[2019-12-29] MEDS: LISINOPRIL 10 MG TAB PO SCH (10:32)
[2019-12-29] MEDS: POTASSIUM CHLORIDE ER 20 MEQ TAB.ER PO SCH (10:32)
[2019-12-29] MEDS: METOPROLOL TARTRATE 25 MG TAB PO SCH (10:33)
[2019-12-29] MEDS: FUROSEMIDE 40 MG TAB PO SCH (10:33)
[2019-12-29] MEDS: LINAGLIPTIN 5 MG TABLET PO SCH (10:33)
--- NOTE | 2019-12-29 10:45 | P.DS ---
Providers Date of admission: 12/24/19 07:27 Expected date of discharge: 12/29/19 Attending physician: Hood Akhtar Consults: 12/24/19 07:51 Consult Physician Urgent Consulting Provider: Isaura Ramos Consult Reason/Comments: Bipap management Do you want consulting provider notified?: Already Contacted 12/24/19 07:52 Consult Physician Routine Consulting Provider: Sly Fortune Consult Reason/Comments: Hypertensive emergency, CHF Do you want consulting provider notified?: Yes 12/24/19 19:15 Consult Physician Routine Consulting Provider: Ry Callejas Consult Reason/Comments: Cognitive Impairment Do you want consulting provider notified?: Yes, Notify in am Primary care physician: [facility] Course: Final Dagnoses: (1) Cognitive impairment Current Visit: Yes Status: Acute Code(s): R41.89 - OTH SYMPTOMS AND SIGNS W COGNITIVE FUNCTIONS AND AWARENESS SNOMED Code(s): 284316822 (2) Acute kidney injury Current Visit: No Status: Acute Code(s): N17.9 - ACUTE KIDNEY FAILURE, UNSPECIFIED SNOMED Code(s): 73423886 (3) Back pain Current Visit: No Status: Acute Code(s): M54.9 - DORSALGIA, UNSPECIFIED SNOMED Code(s): 517926052 (4) Chest pain Current Visit: No Status: Acute Code(s): R07.9 - CHEST PAIN, UNSPECIFIED SNOMED Code(s): 96303584 (5) Chronic diastolic CHF (congestive heart failure), NYHA class 2 Current Visit: No Status: Acute Code(s): I50.32 - CHRONIC DIASTOLIC (CONGESTIVE) HEART FAILURE SNOMED Code(s): 425498689 (6) Chronic renal failure Current Visit: No Status: Acute Code(s): N18.9 - CHRONIC KIDNEY DISEASE, UNSPECIFIED SNOMED Code(s): 77750085 (7) Diabetes mellitus Current Visit: No Status: Acute Code(s): E11.9 - TYPE 2 DIABETES MELLITUS WITHOUT COMPLICATIONS SNOMED Code(s): 68326627 (8) Hypertension Current Visit: No Status: Acute Code(s): I10 - ESSENTIAL (PRIMARY) HYPERTENSION SNOMED Code(s): 08990658 (9) Hypertensive emergency Current Visit: No Status: Acute Code(s): I16.1 - HYPERTENSIVE EMERGENCY SNOMED Code(s): 817705499571088 (10) Poor historian Current Visit: No Status: Acute Code(s): Z78.9 - OTHER SPECIFIED HEALTH STATUS SNOMED Code(s): 639199708 Dyspnea related to acute exacerbation chronic heart failure with previous documented diastolic dysfunction Mild aortic regurg mild tricuspid and mitral regurg no evidence of pulmonary hypertension Hypertensive emergency pulmonary edema chronic hypercapnic hypoxemia respiratory failure related to COPD Elevated troponins probably secondary to exacerbation of heart failure Known hypertension Diabetes mellitus chronic renal failure stage III B Hypercholesterolemia Significant [facility] was 11 out of 30 With significant poor executive function and executive decision making Poor historian Significant noncompliance when allowed to live by self Patient's only known relative is his sister that lives in [facility] course:74-year-old male known to the practice with history of hypertension hyperlipidemia diabetes mellitus type 2 former smoker anxiety COPD stage III chronic renal insufficiency patient was recently discharged from [facility] with pneumonia, early dementia, [facility] and the patient was in 11 out of 30. Patient states he did have some chest discomfort relieved by nitro denies cough does complain of some chronic swelling the lower extremes. Patient was last seen here in July for acute pulmonary edema secondary to hypertensive emergency. Patient has a long-standing history of not taking appropriate medications in the past patient lives I himself and was afraid that medications were costing too much afraid that he might have side effects if he took them and had found himself admitted to the hospital 3 times in 6 weeks all 3 were ICU admissions, discussed at length the need to take meds appropriately patient well is saying that he understood would only take them when in the hospital and was stopped taking all his meds once he arrived home typically blood pressures would skyrocket EKG shows sinus tachycardia with nonspecific ST changes lab work white count was 12.5 hemoglobin was 9.0 which was the same hemoglobin when patient was discharged from [facility] INR 0.9 electrolytes within normal limits by mouth and 38 creatinine is 1.9 which is back to baseline BMP was 370 troponins 0.09 and 0.046. Pressure at admission was 1 7999 patient was afebrile was placed on BiPAP given nitroglycerin for better blood pressure control patient takes Lasix 40 mg twice daily denies cough congestion denies hemoptysis and or wheezing currently on 2 L of oxygen blood pressure is improved we'll reevaluate patient tomorrow 12/25/2019 elevated d-dimer, Doppler of lower extremities pending, creatinine 1.9. Diuresing well on Lasix IV push with 24-hour I&O reflecting a negative fluid balance. Breathing improving, maintaining O2 sats in the 90s on 6 L nasal cannula. Psychiatry evaluation pending. 12/26/2019 bilateral Doppler reported no acute DVT. Breathing continues to improve, oxygen titrated down to 4 L nasal cannula, maintaining O2 sats in the 90s. Creatinine 1.91. Denies chest pain, palpitations or increasing shortness of breath. Social work has initiated paperwork regarding guardianship to be continued, follow-up on it subacute rehab. Significant clinical improvement. Cleared by consults for discharge. Patient is being discharged to [facility] subacute rehab in a stable condition with guarded prognosis. Exam General: Alert and oriented 3, no acute distress Cardiac: [Heart regular in rate and rhythm. No S3. No S4. No clicks, rubs. No murmur.] Lungs: Diminished with fine bibasilar crackles Abdomen: Soft, nondistended, nontender, positive bowel sounds Neurologic: [No lateralizing deficits. CN II - XII grossly intact.] The impression and plan of care has been dictated as directed. : I performed a history and examination of this patient, discussed the same with the dictator. I agree with the dictator's note ,documented as a scribe. Any additional findings or plans will be noted. Patient Condition at Discharge: Stable Plan - Discharge Summary Discharge Rx Participant: No New Discharge Prescriptions: New Aspirin 81 mg PO DAILY chew INSULIN LISPRO (HumaLOG) [humaLOG] 0 unit SQ ACHS #1 vial Continue Tamsulosin [Flomax] 0.8 mg PO HS Isosorbide Mononitrate ER [Imdur] 30 mg PO DAILY #30 tab.er.24h Nitroglycerin Sl Tabs [Nitrostat] 0.4 mg SUBLINGUAL Q5M PRN PRN Reason: Chest Pain Multivitamins, Thera [Multivitamin (formulary)] 1 tab PO DAILY Furosemide [Lasix] 40 mg PO BID@0600,1400 Simvastatin 40 mg PO HS Albuterol Sulfate [Ventolin HFA] 1 - 2 puff INHALATION RT-Q6H PRN PRN Reason: Wheezing hydrALAZINE HCL [Apresoline] 25 mg PO TID@0600,1400,2100 Potassium Chloride ER [K-Dur 20] 20 meq PO BID buPROPion XL [Wellbutrin XL] 150 mg PO DAILY Metoprolol Tartrate [Lopressor] 25 mg PO BID Linagliptin [Tradjenta] 5 mg PO DAILY Sennosides-Docusate Sodium [Senokot-S] 1 tab PO DAILY Lisinopril [Prinivil] 10 mg PO DAILY Escitalopram [Lexapro] 5 mg PO DAILY Propylene Glycol/Peg 400/Pf [Systane 0.3-0.4% Eye Drop] 1 drop BOTH EYES DAILY PRN PRN Reason: DRY EYES Discharge Medication List Tamsulosin [Flomax] 0.8 mg PO HS 04/27/14 [History] Isosorbide Mononitrate ER [Imdur] 30 mg PO DAILY #30 tab.er.24h 08/26/19 [Rx] Furosemide [Lasix] 40 mg PO BID@0600,1400 09/01/19 [History] Multivitamins, Thera [Multivitamin (formulary)] 1 tab PO DAILY 09/01/19 [History] Nitroglycerin Sl Tabs [Nitrostat] 0.4 mg SUBLINGUAL Q5M PRN 09/01/19 [History] Simvastatin 40 mg PO HS 10/14/19 [History] Albuterol Sulfate [Ventolin HFA] 1 - 2 puff INHALATION RT-Q6H PRN 12/24/19 [History] Escitalopram [Lexapro] 5 mg PO DAILY 12/24/19 [History] Linagliptin [Tradjenta] 5 mg PO DAILY 12/24/19 [History] Lisinopril [Prinivil] 10 mg PO DAILY 12/24/19 [History] Metoprolol Tartrate [Lopressor] 25 mg PO BID 12/24/19 [History] Potassium Chloride ER [K-Dur 20] 20 meq PO BID 12/24/19 [History] Propylene Glycol/Peg 400/Pf [Systane 0.3-0.4% Eye Drop] 1 drop BOTH EYES DAILY PRN 12/24/19 [History] Sennosides-Docusate Sodium [Senokot-S] 1 tab PO DAILY 12/24/19 [History] buPROPion XL [Wellbutrin XL] 150 mg PO DAILY 12/24/19 [History] hydrALAZINE HCL [Apresoline] 25 mg PO TID@0600,1400,2100 12/24/19 [History] Aspirin 81 mg PO DAILY chew 12/26/19 [Rx] INSULIN LISPRO (HumaLOG) [humaLOG] 0 unit SQ ACHS #1 vial 12/29/19 [Rx] Follow up Appointment(s)/Referral(s): Hood Akhtar MD [Primary Care Provider] - 3 Days Activity/Diet/Wound Care/Special Instructions: Geovanna CRUMP CBC,BMP in 3 days Discharge Disposition: TRANSFER TO SNF/ECF
[2019-12-29 11:41] LABS: Glucose,Whole Blood 215 mg/dL (75-99)
[2019-12-29] MEDS: ESCITALOPRAM 5 MG TAB PO SCH (11:52)
[2019-12-29] MEDS: buPROPion XL 150 MG TAB.ER.24H PO SCH (11:52)
[2019-12-29] MEDS: ALBUTEROL NEBULIZED 2.5 MG/3 ML INHALATION PRN (12:29)
[2019-12-29 12:42] VITALS: PULSE 88
--- NOTE | 2020-01-01 07:18 | CDI ---
Documentation Clarification Form Date: 01/01/20 From: Ann Lowe Phone: If you have a question about this query, please contact Benita Calvin, Forecast Analyst at [phone] between 8am and 5pm. Admit Date: 12/24/19 Discharge Date: 12/29/19 Patient Name: Bernardo Boston Visit Number: [id number] ATTENTION: The Clinical Documentation Specialists (CDI) and [facility] Coding Staff appreciate your assistance in clarifying documentation. Please respond to the clarification below the line at the bottom and electronically sign. The CDI & [facility] Coding staff will review the response and follow-up if needed. Please note: Queries are made part of the Legal Health Record. If you have any questions, please contact the author of this message via ITS. Dear Dr. Ramos Chronic hypercapnic and hypoxemic respiratory failure was documented in the H&P, discharge summary, cardiology consult note, psychiatric consult note, your 07/[address] Mccain's 07/27 and 12/27 progress note. History/Risk Factors: Chronic hypoxic and hypercapnic respiratory failure, COPD Tobacco use: Former smoker Home oxygen: Recently started on home oxygen Clinical Indicators: Severe dyspnea - not able to give more than 1 word answers, he became anxious when he is short of breath, accessory muscle use & respiratory distress documented in the ED note, rapid breathing, elevated pulse Vital signs: T. 98.1, P. 115, R 35, BP 172/99 Pulse oximetry: 100 & on BiPAP and dropped to 70% when switched to nasal cannula Lung/Breathing assessment: Respiratory distress, rales accessory muscle use documented in the ED note ABG/CBG: pH 7.34 pO2 31 pCO2 59 Lactate 2.1 Treatment: Breathing tx: Ventolin Continuous Pulse ox O2/Vent/BiPap: BiPap at 50 l/min In your professional opinion, can you please clarify if these findings signify one of the following conditions? Acute on Chronic Respiratory Failure Chronic Respiratory Failure Acute Respiratory Distress Other Diagnosis, please specify Unable to determine MTDD
--- NOTE | 2020-01-01 11:50 | P.PN ---
Progress Note - Text Progress Note Date: 01/01/20 For documentation purposes, patient had acute on chronic hypoxic and hypercapnic respiratory failure.
== END 2019-12-29 14:05 | DRG 291 ==
LOC: EC 05:52 → 3SCARD 07:27 → 4SSUR 12-29 08:26
PROVIDERS: ADMIT Family Medicine; ATTEND Family Medicine
PROC: 5A09357 Assistance with Respiratory Ventilation, Less than 24 Consecutive Hours, Continuous Positive Airway Pressure (ICD-10-PCS; principal; 2019-12-24)
DX: I13.0 Hypertensive heart and chronic kidney disease with heart failure and stage 1 through stage 4 chronic kidney disease, or unspecified chronic kidney disease (principal); I50.33 Acute on chronic diastolic (congestive) heart failure; J96.21 Acute and chronic respiratory failure with hypoxia; J96.22 Acute and chronic respiratory failure with hypercapnia; I16.1 Hypertensive emergency; J96.11 Chronic respiratory failure with hypoxia; J96.12 Chronic respiratory failure with hypercapnia; J98.11 Atelectasis; N17.9 Acute kidney failure, unspecified; N18.3 Chronic kidney disease, stage 3 (moderate); E11.22 Type 2 diabetes mellitus with diabetic chronic kidney disease; F03.90 Unspecified dementia, unspecified severity, without behavioral disturbance, psychotic disturbance, mood disturbance, and anxiety; E11.42 Type 2 diabetes mellitus with diabetic polyneuropathy; E78.00 Pure hypercholesterolemia, unspecified; T50.916A Underdosing of multiple unspecified drugs, medicaments and biological substances, initial encounter; D64.9 Anemia, unspecified; E78.5 Hyperlipidemia, unspecified; F32.9 Major depressive disorder, single episode, unspecified; F41.0 Panic disorder [episodic paroxysmal anxiety]; M54.9 Dorsalgia, unspecified; J44.9 Chronic obstructive pulmonary disease, unspecified; N40.1 Benign prostatic hyperplasia with lower urinary tract symptoms; R41.89 Other symptoms and signs involving cognitive functions and awareness; I08.3 Combined rheumatic disorders of mitral, aortic and tricuspid valves; R32 Unspecified urinary incontinence; Z79.82 Long term (current) use of aspirin; Z79.84 Long term (current) use of oral hypoglycemic drugs; Z79.899 Other long term (current) drug therapy; Z88.5 Allergy status to narcotic agent; Z91.041 Radiographic dye allergy status; Z87.440 Personal history of urinary (tract) infections; Z87.01 Personal history of pneumonia (recurrent); Z89.022 Acquired absence of left finger(s); Z91.120 Patient's intentional underdosing of medication regimen due to financial hardship; Z99.81 Dependence on supplemental oxygen; Z83.3 Family history of diabetes mellitus; Z80.9 Family history of malignant neoplasm, unspecified; Z84.1 Family history of disorders of kidney and ureter
CPT/HCPCS: 36415; 71045; 80048; 80053; 82803; 83036; 83605; 83880; 84484; 85025; 85379; 85610; 85730; 93005; 93306; 93970; 94640; 94660; 94760; 96365; 96366; 99291

== ENCOUNTER 2020-02-23 18:58 | Inpatient (IN) | payer MEDICARE ==
[2020-02-23] MEDS ORDERED: SODIUM CHLORIDE 0.9% 1,000 ML IV STA (19:38)
[2020-02-23] MEDS ORDERED: IPRATROPIUM-ALBUTEROL 3 ML NEB INHALATION STA (19:39)
--- NOTE | 2020-02-23 19:42 | ED ---
Weakness HPI - General Chief complaint: Fall Stated complaint: Fall Time Seen by Provider: 02/23/20 19:00 Source: patient, EMS, RN notes reviewed, old records reviewed Mode of arrival: EMS Limitations: no limitations - History of Present Illness Initial comments: This is a 74-year-old male DF for evaluation patient presented to fall today. Follow some back pain and hip pain. No known loss of consciousness is admitted to shortness of breath and weakness. Patient was no travel history or sick contacts history obtained by EMS and patient's chart patient is poor story MD Complaint: generalized weakness, focal weakness (BL LE) -: hour(s) Location: generalized, RLE Severity: severe Severity scale (1-10): 8 - Related Data Home Medications Medication Instructions Recorded Confirmed Tamsulosin [Flomax] 0.8 mg PO DAILY@0900 04/27/02/23/20 Furosemide [Lasix] 40 mg PO BID@0600,1300 09/01/19 02/23/20 Linagliptin [Tradjenta] 5 mg PO DAILY@89912/24/19 02/23/20 Lisinopril [Prinivil] 10 mg PO DAILY@89912/24/19 02/23/20 Sennosides-Docusate Sodium 1 tab PO DAILY PRN 12/24/19 02/23/20 [Senokot-S] buPROPion XL [Wellbutrin XL] 150 mg PO DAILY@89912/24/19 02/23/20 hydrALAZINE HCL [Apresoline] 25 mg PO TID@0600,1400,209912/24/19 02/23/20 ALPRAZolam [Xanax] 0.25 mg PO DAILY@0800,1700 PRN 02/23/20 02/23/20 Acetaminophen Tab [Tylenol] 650 mg PO Q4H PRN 02/23/20 02/23/20 Aspirin 81 mg PO DAILY@89902/23/20 02/23/20 Atorvastatin [Lipitor] 20 mg PO HS@209902/23/20 02/23/20 Calcium Carbonate [Tums] 1,000 mg PO Q6H PRN 02/23/20 02/23/20 Escitalopram [Lexapro] 10 mg PO DAILY@89902/23/20 02/23/20 Insulin Glargine,Hum.rec.anlog 10 unit SQ HS@209902/23/20 02/23/20 [Basaglcelina Cobospen U-100] Isosorbide Mononitrate ER [Imdur] 30 mg PO DAILY@0902/23/20 02/23/20 Loperamide HCl [Loperamide] 2 mg PO DAILY PRN 02/23/20 02/23/20 Metoprolol Tartrate [Lopressor] 50 mg PO BID@0900,209902/23/20 02/23/20 Omeprazole 20 mg PO DAILY@0602/23/20 02/23/20 Potassium Chloride [Klor-Con 20 20 meq PO DAILY@89902/23/20 02/23/20 Packets] Umeclidinium [place] [Incruse 1 puff INHALATION RT-DAILY@89902/23/20 02/23/20 Ellipta] Visine Tears 1 drop BOTH EYES DAILY PRN 02/23/20 02/23/20 Allergies Allergy/AdvReac Type Severity Reaction Status Date / Time iodine Allergy Rash/Hives Verified 02/23/20 21:33 morphine AdvReac Hallucinati Verified 02/23/20 21:33 ons Review of Systems ROS Statement: Those systems with pertinent positive or pertinent negative responses have been documented in the HPI. ROS Other: All systems not noted in ROS Statement are negative. Past Medical History Past Medical History: Heart Failure, COPD, Diabetes Mellitus, Hyperlipidemia, Hypertension Additional Past Medical History / Comment(s): enlarged prostate. History of Any Multi-Drug Resistant Organisms: None Reported Past Surgical History: Back Surgery Additional Past Surgical History / Comment(s): left first and second finger amputation. Past Anesthesia/Blood Transfusion Reactions: No Reported Reaction Past Psychological History: Anxiety Smoking Status: Former smoker Past Alcohol Use History: None Reported Past Drug Use History: None Reported - Past Family History Brother(s) Family Medical History: Cancer Mother Family Medical History: Diabetes Mellitus, Renal Disease General Exam Limitations: no limitations General appearance: alert, in no apparent distress, anxious Head exam: Present: atraumatic, normocephalic, normal inspection Eye exam: Present: normal appearance, PERRL, EOMI. Absent: scleral icterus, conjunctival injection, periorbital swelling ENT exam: Present: normal exam, mucous membranes moist Neck exam: Present: normal inspection. Absent: tenderness, meningismus, lymphadenopathy Respiratory exam: Present: normal lung sounds bilaterally. Absent: respiratory distress, wheezes, rales, rhonchi, stridor Cardiovascular Exam: Present: regular rate, normal rhythm, normal heart sounds. Absent: systolic murmur, diastolic murmur, rubs, gallop, clicks GI/Abdominal exam: Present: soft, normal bowel sounds. Absent: distended, tenderness, guarding, rebound, rigid Extremities exam: Present: normal inspection, full ROM, normal capillary refill. Absent: tenderness, pedal edema, joint swelling, calf tenderness Back exam: Present: normal inspection Neurological exam: Present: alert, oriented X3, CN II-XII intact Psychiatric exam: Present: normal affect, normal mood Skin exam: Present: warm, dry, intact, normal color. Absent: rash Course Vital Signs 02/23/20 02/23/20 02/23/20 19:00 19:06 19:10 Temperature 98.2 F Pulse Rate 61 Respiratory 20 Rate Blood Pressure 140/77 140/77 O2 Sat by Pulse 97 98 99 Oximetry 02/23/20 02/23/20 02/23/20 19:20 19:30 19:40 Temperature Pulse Rate 69 Respiratory 22 Rate Blood Pressure 140/77 141/78 141/78 O2 Sat by Pulse 99 99 95 Oximetry 02/23/20 02/23/20 02/23/20 19:50 20:00 20:10 Temperature Pulse Rate 68 Respiratory 22 Rate Blood Pressure 141/78 141/78 137/78 O2 Sat by Pulse 99 95 96 Oximetry 02/23/20 02/23/20 02/23/20 20:20 20:30 20:40 Temperature Pulse Rate 69 68 68 Respiratory Rate Blood Pressure 137/78 137/78 137/78 O2 Sat by Pulse 99 Oximetry 02/23/20 02/23/20 02/23/20 20:47 20:50 21:00 Temperature Pulse Rate 71 71 74 Respiratory Rate Blood Pressure 137/78 137/78 O2 Sat by Pulse 100 100 Oximetry 02/23/20 02/23/20 02/23/20 21:05 21:10 21:20 Temperature Pulse Rate 84 73 75 Respiratory Rate Blood Pressure 152/90 152/90 O2 Sat by Pulse 98 93 L Oximetry 02/23/20 02/23/20 02/23/20 21:30 21:40 21:50 Temperature Pulse Rate 72 70 Respiratory Rate Blood Pressure 152/90 152/90 152/90 O2 Sat by Pulse 95 94 L Oximetry 02/23/20 02/23/20 02/23/20 22:00 22:10 22:20 Temperature Pulse Rate 70 69 69 Respiratory 22 Rate Blood Pressure 152/90 118/63 118/63 O2 Sat by Pulse 95 92 L 93 L Oximetry 02/23/20 02/23/20 02/23/20 22:30 22:40 22:50 Temperature Pulse Rate 66 69 67 Respiratory 22 Rate Blood Pressure 118/63 118/63 118/63 O2 Sat by Pulse 95 95 100 Oximetry 02/23/20 23:20 Temperature 98.7 F Pulse Rate 67 Respiratory 18 Rate Blood Pressure 111/72 O2 Sat by Pulse 100 Oximetry - Reevaluation(s) Reevaluation #1: Medical records reviewed Patient remains persistently weak, pain is controlled Patient informed of findings and questions are answered - Consultations Consultation #1: Spoke with Dr. Angel who agrees to admit patient EKG Findings - EKG Comments: EKG Findings:: EKG is sinus rhythm 71 QRS 84 QTc 534 Medical Decision Making - Medical Decision Making 74 male DF status post fall fall and slip and fall in origin. Patient does have right hip fracture will admit for the P treatment and further evaluation management, patient found to have severe CHF complicated by CO VID complicated by fall and hip fracture - Lab Data Result diagrams: 03/01/20 03:30 03/01/20 03:30 Lab Results 02/23/20 02/23/20 02/23/20 Range/Units 20:00 20:00 20:00 WBC 8.0 (3.8-10.6) k/uL RBC 2.87 L (4.30-5.90) m/uL Hgb 7.0 L (13.0-17.5) gm/dL Hct 23.2 L (39.0-53.0) % MCV 81.1 (80.0-100.0) fL MCH 24.5 L (25.0-35.0) pg MCHC 30.2 L (31.0-37.0) g/dL RDW 16.9 H (11.5-15.5) % Plt Count 193 (150-450) k/uL Neutrophils % 84 % Lymphocytes % 6 % Monocytes % 6 % Eosinophils % 2 % Basophils % 0 % Neutrophils # 6.7 (1.3-7.7) k/uL Lymphocytes # 0.5 L (1.0-4.8) k/uL Monocytes # 0.5 (0-1.0) k/uL Eosinophils # 0.1 (0-0.7) k/uL Basophils # 0.0 (0-0.2) k/uL Hypochromasia Marked Poikilocytosis Slight Anisocytosis Slight PT 11.9 (9.0-12.0) sec INR 1.2 H (<1.2) APTT 22.5 (22.0-30.0) sec Sodium (137-145) mmol/L Potassium (3.5-5.1) mmol/L Chloride (98-107) mmol/L Carbon Dioxide (22-30) mmol/L Anion Gap mmol/L BUN (9-20) mg/dL Creatinine (0.66-1.25) mg/dL Est GFR (CKD-EPI)AfAm (>60 ml/min/1.73 sqM) Est GFR (CKD-EPI)NonAf (>60 ml/min/1.73 sqM) Glucose (74-99) mg/dL Calcium (8.4-10.2) mg/dL Phosphorus (2.5-4.5) mg/dL Magnesium (1.6-2.3) mg/dL Total Bilirubin (0.2-1.3) mg/dL AST (17-59) U/L ALT (4-49) U/L Alkaline Phosphatase (38-126) U/L Troponin I (0.000-0.034) ng/mL NT-Pro-B Natriuret Pep pg/mL Total Protein (6.3-8.2) g/dL Albumin (3.5-5.0) g/dL Urine Color Yellow Urine Appearance Clear (Clear) Urine pH 5.0 (5.0-8.0) Ur Specific [place] 1.010 (1.001-1.035) Urine Protein Negative (Negative) Urine Glucose (UA) Negative (Negative) Urine Ketones Negative (Negative) Urine Blood Negative (Negative) Urine Nitrite Negative (Negative) Urine Bilirubin Negative (Negative) Urine Urobilinogen <2.0 (<2.0) mg/dL Ur Leukocyte Esterase Negative (Negative) 02/23/20 02/23/20 02/23/20 Range/Units 20:00 20:00 20:00 WBC (3.8-10.6) k/uL RBC (4.30-5.90) m/uL Hgb (13.0-17.5) gm/dL Hct (39.0-53.0) % MCV (80.0-100.0) fL MCH (25.0-35.0) pg MCHC (31.0-37.0) g/dL RDW (11.5-15.5) % Plt Count (150-450) k/uL Neutrophils % % Lymphocytes % % Monocytes % % Eosinophils % % Basophils % % Neutrophils # (1.3-7.7) k/uL Lymphocytes # (1.0-4.8) k/uL Monocytes # (0-1.0) k/uL Eosinophils # (0-0.7) k/uL Basophils # (0-0.2) k/uL Hypochromasia Poikilocytosis Anisocytosis PT (9.0-12.0) sec INR (<1.2) APTT (22.0-30.0) sec Sodium 137 (137-145) mmol/L Potassium 4.0 (3.5-5.1) mmol/L Chloride 101 (98-107) mmol/L Carbon Dioxide 23 (22-30) mmol/L Anion Gap 13 mmol/L BUN 76 H (9-20) mg/dL Creatinine 3.33 H (0.66-1.25) mg/dL Est GFR (CKD-EPI)AfAm 20 (>60 ml/min/1.73 sqM) Est GFR (CKD-EPI)NonAf 17 (>60 ml/min/1.73 sqM) Glucose 126 H (74-99) mg/dL Calcium 8.3 L (8.4-10.2) mg/dL Phosphorus 5.5 H (2.5-4.5) mg/dL Magnesium 2.1 (1.6-2.3) mg/dL Total Bilirubin 0.7 (0.2-1.3) mg/dL AST 116 H (17-59) U/L ALT 126 H (4-49) U/L Alkaline Phosphatase 89 (38-126) U/L Troponin I 0.047 H* (0.000-0.034) ng/mL NT-Pro-B Natriuret Pep 32167 pg/mL Total Protein 5.8 L (6.3-8.2) g/dL Albumin 3.1 L (3.5-5.0) g/dL Urine Color Urine Appearance (Clear) Urine pH (5.0-8.0) Ur Specific [place] (1.001-1.035) Urine Protein (Negative) Urine Glucose (UA) (Negative) Urine Ketones (Negative) Urine Blood (Negative) Urine Nitrite (Negative) Urine Bilirubin (Negative) Urine Urobilinogen (<2.0) mg/dL Ur Leukocyte Esterase (Negative) Critical Care Time Critical Care Time: Yes Total Critical Care Time: 31 Disposition Clinical Impression: COVID-19, Acute kidney injury, Respiratory distress, Cognitive impairment, CHF (congestive heart failure), Chronic renal failure, Dehydration, Fall, Closed right hip fracture, Elevated troponin I level Disposition: ADMITTED IP TO THIS HOSP Condition: Fair Is patient prescribed a controlled substance at d/c from ED?: No
[2020-02-23 20:14] LABS: Appearance,Urine Clear (Clear); Bilirubin,Urine Negative (Negative); Blood,Urine Negative (Negative); Color,Urine Yellow; Glucose,Urine (UA) Negative (Negative); Ketones,Urine Negative (Negative); Leukocyte Esterase,Urine Negative (Negative); Nitrite,Urine Negative (Negative); Protein,Urine Negative (Negative); Urobilinogen,Urine <2.0 mg/dL (<2.0)
[2020-02-23 20:30] LABS: Albumin 3.1 g/dL (3.5-5.0); Calcium 8.3 mg/dL (8.4-10.2); INR 1.2 (<1.2); Magnesium 2.1 mg/dL (1.6-2.3); Partial Thromboplastin Time 22.5 sec (22.0-30.0); Phosphorus 5.5 mg/dL (2.5-4.5); Prothrombin Time 11.9 sec (9.0-12.0); Total Bilirubin 0.7 mg/dL (0.2-1.3); Total Protein 5.8 g/dL (6.3-8.2)
[2020-02-23 20:35] LABS: Anisocytosis Slight; Basophils % (A) 0 %; Eosinophils # (A) 0.1 k/uL (0-0.7); Eosinophils % (A) 2 %; HCT 23.2 % (39.0-53.0); Hypochromasia Marked; Lymphocytes # (A) 0.5 k/uL (1.0-4.8); Lymphocytes % (A) 6 %; MCH 24.5 pg (25.0-35.0); MCHC 30.2 g/dL (31.0-37.0); MCV 81.1 fL (80.0-100.0); Mean Platelet Volume 8.6; Monocytes # (A) 0.5 k/uL (0-1.0); Monocytes % (A) 6 %; Neutrophils # (A) 6.7 k/uL (1.3-7.7); Neutrophils % (A) 84 %; Platelet Count 193 k/uL (150-450); Poikilocytosis Slight; RBC 2.87 m/uL (4.30-5.90); RDW 16.9 % (11.5-15.5)
[2020-02-23] MEDS ORDERED: HYDROmorphone 1 MG/ML 1 ML SYRINGE IVP PRN (20:58)
[2020-02-23] MEDS ORDERED: HYDROmorphone 1 MG/ML 1 ML SYRINGE IVP STA (20:58)
--- NOTE | 2020-02-23 21:28 | XR ---
EXAMINATION TYPE: XR chest 1V DATE OF EXAM: 02/23/2020 COMPARISON: 12/25/2019 HISTORY: Short of breath TECHNIQUE: FINDINGS: Heart is enlarged. There is pulmonary vascular congestion and pulmonary airspace edema. The re is blunting of the costophrenic angles. There are chest leads. IMPRESSION: Congestive heart failure with pleural effusions and pulmonary edema that appears worse th an last exam.
--- NOTE | 2020-02-23 21:31 | XR ---
EXAMINATION TYPE: XR pelvis AP view DATE OF EXAM: 02/23/2020 COMPARISON: NONE HISTORY: Weakness TECHNIQUE: Single view FINDINGS: Pelvic ring is intact. There is nondisplaced fracture of the right femoral neck seen on the medial aspect. There is no dislocation. Proximal left femur is intact. IMPRESSION: Nondisplaced right femoral neck fracture.
--- NOTE | 2020-02-23 22:02 | CT ---
EXAMINATION TYPE: CT brain xiomara wo con DATE OF EXAM: 02/23/2020 COMPARISON: 10/19/2019 HISTORY: fall CT DLP: 1371.9 mGycm Automated exposure control for dose reduction was used. There is some cerebral cortical atrophy. There is no mass effect nor midline shift. There is no sign of intracranial hemorrhage. The calvarium is intact. There is mild straightening of the cervical spine. There is disc space narrowing at C5-6 and C6-7 wit h spurring of the endplates. Posterior elements are intact. There is mild cervical hypertrophic facet arthropathy. The skull base is intact. IMPRESSION: Spondylotic changes in the lower cervical spine. No fracture. Mild cerebral atrophy. No acute intracranial abnormality. No change compared to old exam. There is clearing of the left maxillary sinusitis compared to old exa m.
[2020-02-24 07:11] LABS: Glucose,Whole Blood 202 mg/dL (75-99)
[2020-02-24 07:30] LABS: Albumin 3.2 g/dL (3.5-5.0); Calcium 8.5 mg/dL (8.4-10.2); Total Bilirubin 0.7 mg/dL (0.2-1.3); Total Protein 5.7 g/dL (6.3-8.2)
[2020-02-24 07:31] LABS: Potassium 4.2 mmol/L (3.5-5.1)
[2020-02-24 07:37] LABS: Anisocytosis Slight; Basophils % (A) 0 %; Eosinophils # (A) 0.1 k/uL (0-0.7); Eosinophils % (A) 1 %; HCT 23.6 % (39.0-53.0); Hypochromasia Marked; Lymphocytes # (A) 0.4 k/uL (1.0-4.8); Lymphocytes % (A) 4 %; MCH 24.4 pg (25.0-35.0); MCHC 29.1 g/dL (31.0-37.0); MCV 83.7 fL (80.0-100.0); Mean Platelet Volume 8.4; Monocytes # (A) 0.6 k/uL (0-1.0); Monocytes % (A) 6 %; Neutrophils # (A) 8.8 k/uL (1.3-7.7); Neutrophils % (A) 87 %; Platelet Count 174 k/uL (150-450); Poikilocytosis Slight; RBC 2.82 m/uL (4.30-5.90); RDW 16.7 % (11.5-15.5)
[2020-02-24 07:58] LABS: HGB 6.9 gm/dL (13.0-17.5)
[2020-02-24] MEDS ORDERED: FUROSEMIDE 10 MG/ML 2 ML VIAL IV ONE (10:12)
[2020-02-24 11:36] LABS: Glucose,Whole Blood 238 mg/dL (75-99)
[2020-02-24] MEDS ORDERED: IPRATROPIUM-ALBUTEROL 3 ML NEB INHALATION PRN (11:41)
[2020-02-24] MEDS ORDERED: ARTIFICIAL TEARS-HYPROMELLOSE DROPS 15 ML BTL BOTH EYES PRN (11:42)
[2020-02-24] MEDS ORDERED: ACETAMINOPHEN TAB 325 MG TAB PO PRN (11:42)
[2020-02-24] MEDS ORDERED: LOPERAMIDE 2 MG CAP PO PRN (11:42)
[2020-02-24] MEDS ORDERED: SENNOSIDES-DOCUSATE SODIUM 1 EACH TAB PO PRN (11:42)
--- NOTE | 2020-02-24 11:46 | P.CNPUL ---
History of Present Illness Consult date: 02/24/20 Requesting physician: Juan Angel Reason for consult: dyspnea, abnormal CXR/CT Chief complaint: Right hip pain, status post fall History of present illness: This is a very pleasant 74-year-old gentleman who follows with Dr. Akhtar as his primary care provider. He is a history of diabetes mellitus, type II, hypertension, hyperlipidemia, anxiety, previous chronic tobacco dependence and chronic obstructive pulmonary disease, on home oxygen at 2 L. He had recently in November 2019 been admitted for an acute exacerbation of chronic congestive heart failure secondary to diastolic dysfunction. He was subsequent discharged to [facility] on the [place] where he has been staying for rehabilitation. Last evening he was brought to the emergency room after sustaining a fall in the shower. He had multiple abrasions on his skin. Laceration to the right ear requiring sutures,, trauma to the right chest and a nondisplaced right femoral neck fracture. Computed tomography scan of the brain and C-spine revealed no acute intracranial abnormalities. No cervical spine fractures. He had been seen and evaluated by orthopedic surgery and were considering repair of the right hip fracture. We have been asked to consult for preoperative clearance. He is seen today in consultation on the regular medical floor. He is currently awake and alert in no acute distress. He is maintaining O2 saturation in the low 90s on 4 L/m per nasal cannula. Chest x-ray showed evidence of congestive heart failure with pleural effusions and pulmonary edema which is worse compared to previous in November 2019. White count 10.0. Hemoglobin 6.9. Platelet count 174. Lymphocytes 0.4. INR 1.2. Sodium 138. Potassium 4.2. Bicarb 14. Creatinine 3.51. Glucose 146. AST 83. ALT 121. Troponin 0.047, 0.054. ProBNP 25,000. Coronavirus is detected. Review of Systems REVIEW OF SYSTEMS: CONSTITUTIONAL: Denies any recent significant weight loss or weight gain. EYES: Denies change in vision. EARS, NOSE, MOUTH, THROAT: Denies headaches, denies sore throat. CARDIOVASCULAR: Denies chest pain, palpitations or syncopal episodes. RESPIRATORY: Positive for shortness of breath, cough, congestion no hemoptysis. GASTROINTESTINAL: Denies change in appetite, denies abdominal pain GENITOURINARY: Denies hematuria, denies infections. MUSKULOSKELETAL: Positive for pain in the right hip and ribs, denies swelling. INTEGUMENTARY: Denies rash, denies eczema. NEUROLOGICAL: Denies recent memory loss, no recent seizure activity. PSYCHIATRIC: Denies anxiety, denies depression. HEMATOLOGIC/LYMPHATIC: Denies anemia, denies enlarged lymph nodes. Past Medical History Past Medical History: Heart Failure, COPD, Diabetes Mellitus, Hyperlipidemia, Hypertension Additional Past Medical History / Comment(s): enlarged prostate. History of Any Multi-Drug Resistant Organisms: None Reported Past Surgical History: Back Surgery Additional Past Surgical History / Comment(s): left first and second finger amputation. Past Anesthesia/Blood Transfusion Reactions: No Reported Reaction Past Psychological History: Anxiety Additional Psychological History / Comment(s): Pt currently at [facility] on the [place] he states for rehab. 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 Smoking Status: Former smoker Past Alcohol Use History: None Reported Additional Past Alcohol Use History / Comment(s): Pt started smoking about 1960 and states he quit years ago but cannot recall exactly when. He states he has not drank alcohol in years as well. Past Drug Use History: None Reported - Past Family History Brother(s) Family Medical History: Cancer Mother Family Medical History: Diabetes Mellitus, Renal Disease Medications and Allergies Home Medications Medication Instructions Recorded Confirmed Type Tamsulosin [Flomax] 0.8 mg PO DAILY@0900 04/27/14 02/23/20 History Furosemide [Lasix] 40 mg PO BID@0600,1300 09/01/19 02/23/20 History Linagliptin [Tradjenta] 5 mg PO DAILY@0912/24/19 02/23/20 History Lisinopril [Prinivil] 10 mg PO DAILY@0900 12/24/19 02/23/20 History Sennosides-Docusate Sodium 1 tab PO DAILY PRN 12/24/19 02/23/20 History [Senokot-S] buPROPion XL [Wellbutrin XL] 150 mg PO DAILY@0900 12/24/19 02/23/20 History hydrALAZINE HCL [Apresoline] 25 mg PO TID@0600,1400,2100 12/24/19 02/23/20 History ALPRAZolam [Xanax] 0.25 mg PO DAILY@0800,1700 PRN 02/23/20 02/23/20 History Acetaminophen Tab [Tylenol] 650 mg PO Q4H PRN 02/23/20 02/23/20 History Aspirin 81 mg PO DAILY@0902/23/20 02/23/20 History Atorvastatin [Lipitor] 20 mg PO HS@209902/23/20 02/23/20 History Calcium Carbonate [Tums] 1,000 mg PO Q6H PRN 02/23/20 02/23/20 History Escitalopram [Lexapro] 10 mg PO DAILY@0902/23/20 02/23/20 History Insulin Glargine,Hum.rec.anlog 10 unit SQ HS@209902/23/20 02/23/20 History [Basaglar Kwikpen U-100] Isosorbide Mononitrate ER [Imdur] 30 mg PO DAILY@0902/23/20 02/23/20 History Loperamide HCl [Loperamide] 2 mg PO DAILY PRN 02/23/20 02/23/20 History Metoprolol Tartrate [Lopressor] 50 mg PO BID@0900,209902/23/20 02/23/20 History Omeprazole 20 mg PO DAILY@0602/23/20 02/23/20 History Potassium Chloride [Klor-Con 20 20 meq PO DAILY@0902/23/20 02/23/20 History Packets] Umeclidinium [place] [Incruse 1 puff INHALATION RT-DAILY@0902/23/20 02/23/20 History Ellipta] Visine Tears 1 drop BOTH EYES DAILY PRN 02/23/20 02/23/20 History Allergies Allergy/AdvReac Type Severity Reaction Status Date / Time iodine Allergy Rash/Hives Verified 02/23/20 21:33 morphine AdvReac Hallucinati Verified 02/23/20 21:33 ons Physical Exam Vitals: Vital Signs Temp Pulse Pulse Resp BP BP Pulse Ox 02/24/20 11:16 97.6 F 78 16 129/74 90 L 02/24/20 07:15 97.8 F 76 16 129/67 90 L 02/24/20 05:31 18 02/24/20 03:49 98.1 F 70 18 109/62 92 L 02/24/20 00:33 98.2 F 66 16 125/73 94 L 02/24/20 00:00 18 02/23/20 23:20 98.7 F 67 18 111/72 100 02/23/20 22:50 67 22 118/63 100 02/23/20 22:40 69 118/63 95 02/23/20 22:30 66 118/63 95 02/23/20 22:20 69 118/63 93 L 02/23/20 22:10 69 118/63 92 L 02/23/20 22:00 70 22 152/90 95 02/23/20 21:50 152/90 02/23/20 21:40 70 152/90 94 L 02/23/20 21:30 72 152/90 95 02/23/20 21:20 75 152/90 93 L 02/23/20 21:10 73 152/90 98 02/23/20 21:05 84 02/23/20 21:00 74 137/78 100 02/23/20 20:50 71 137/78 100 02/23/20 20:47 71 02/23/20 20:40 68 137/78 02/23/20 20:30 68 137/78 02/23/20 20:20 69 137/78 99 02/23/20 20:10 137/78 96 02/23/20 20:00 141/78 95 02/23/20 19:50 68 22 141/78 99 02/23/20 19:40 141/78 95 02/23/20 19:30 69 22 141/78 99 02/23/20 19:20 140/77 99 02/23/20 19:10 140/77 99 02/23/20 19:06 98 02/23/20 19:00 98.2 F 61 20 140/77 97 Intake and Output 02/23/20 02/24/20 02/24/20 22:59 06:59 14:59 Intake Total 0 Balance 0 Intake: Blood Product 0 Rc As-1 Unit 0 [id number] Other: Voiding Method Indwelling Catheter Weight 71.668 kg GENERAL EXAM: Alert, pleasant somewhat frail, disheveled, 74-year-old gentleman, on 4 L nasal cannula with O2 saturation 100%, fairly comfortable in no apparent distress. HEAD: Normocephalic. EYES: Normal reaction of pupils, equal size. NOSE: Clear with pink turbinates. THROAT: No erythema or exudates. NECK: No masses, no JVD. CHEST: No chest wall deformity. LUNGS: Equal air entry with few scattered rhonchi, crackles in the posterior bases. CVS: S1 and S2 normal with no audible murmur, regular rhythm. ABDOMEN: No hepatosplenomegaly, normal bowel sounds, no guarding or rigidity. SPINE: No scoliosis or deformity SKIN: No rashes CENTRAL NERVOUS SYSTEM: No focal deficits, tone is normal in all 4 extremities. EXTREMITIES: Pain in the right hip. There is trace peripheral edema. No clubbin g, no cyanosis. Missing first and second digits of the left hand. Peripheral pulses are intact. Results - Laboratory Findings CBC and BMP: 02/24/20 06:40 02/24/20 06:40 PT/INR, D-dimer PT 11.9 sec (9.0-12.0) 02/23/20 20:00 INR 1.2 (<1.2) H 02/23/20 20:00 Abnormal lab findings: Abnormal Labs 02/23/20 02/23/20 02/23/20 20:00 20:00 20:00 RBC 2.87 L Hgb 7.0 L Hct 23.2 L MCH 24.5 L MCHC 30.2 L RDW 16.9 H Neutrophils # Lymphocytes # 0.5 L INR 1.2 H BUN 76 H Creatinine 3.33 H Glucose 126 H POC Glucose (mg/dL) Calcium 8.3 L Phosphorus 5.5 H AST 116 H ALT 126 H Troponin I Total Protein 5.8 L Albumin 3.1 L Coronavirus (PCR) Crossmatch 02/23/20 02/23/20 02/24/20 20:00 22:15 06:40 RBC 2.82 L Hgb 6.9 L* Hct 23.6 L MCH 24.4 L MCHC 29.1 L RDW 16.7 H Neutrophils # 8.8 H Lymphocytes # 0.4 L INR BUN Creatinine Glucose POC Glucose (mg/dL) Calcium Phosphorus AST ALT Troponin I 0.047 H* Total Protein Albumin Coronavirus (PCR) Detected A Crossmatch 02/24/20 02/24/20 02/24/20 06:40 07:10 08:29 RBC Hgb Hct MCH MCHC RDW Neutrophils # Lymphocytes # INR BUN 76 H Creatinine 3.51 H Glucose 146 H POC Glucose (mg/dL) 202 H Calcium Phosphorus AST 83 H ALT 121 H Troponin I Total Protein 5.7 L Albumin 3.2 L Coronavirus (PCR) Crossmatch See Detail 02/24/20 08:29 RBC Hgb Hct MCH MCHC RDW Neutrophils # Lymphocytes # INR BUN Creatinine Glucose POC Glucose (mg/dL) Calcium Phosphorus AST ALT Troponin I 0.054 H* Total Protein Albumin Coronavirus (PCR) Crossmatch - Diagnostic Findings Chest x-ray: image reviewed Assessment and Plan Assessment: 1 Acute trauma including a nondisplaced right femoral neck fracture status post fall. Right-sided chest wall pain. Skin abrasions. Laceration to the right ear requiring sutures. 2 Acute CoVID 19 infection 3 Acute hypoxic respiratory failure secondary to an acute exacerbation of chronic diastolic congestive heart failure with preserved left ventricular systolic function. 4 Severe pulmonary hypertension with an RVSP of 67 mmHg. 5 Acute anemia with hemoglobin is 6.9, pending 1 unit packed red blood cells 6 Acute on chronic renal failure with current creatinine 3.51 7 Troponin leak 8 Elevated LFTs 9 History of dementia 10 Diabetes mellitus, type II 11 Hyperlipidemia 12 Hypertension 13 Chronic obstructive pulmonary disease, oxygen dependent 14 History of previous tobacco dependence of 42 years at 1 pack per day. Quit approximately 3 years ago 15 Poor overall functional performance based on the above-mentioned multiple comorbidities Plan: The patient was seen and evaluated by Dr. Ramos Chest x-ray and labs reviewed Receiving 1 unit of packed red blood cells, receiving IV diuretics posttransfusion Previous x-rays reviewed, cannot rule out Covid 19 infection on last admission We will optimize pulmonary medications Educated regarding the use the incentive spirometer and cough and deep breathing exercises Would be moderate risk for any surgical intervention at this point We'll continue to follow and make further recommendations based on his clinical status I, the cosigning physician, performed a history & physical examination of the patient. Lungs sounds with few scattered rhonchi, crackles in the posterior bases. Maintaining good O2 saturations in the 90s on 4 L/m per nasal cannula. I discussed the assessment and plan of care with my nurse practitioner, Eveline Munguia. I attest to the above consultation as dictated by her. Time with Patient: Greater than 30
--- NOTE | 2020-02-24 11:52 | P.HPOR ---
<Jim Lemos - Last Filed: 02/24/20 11:45> History of Present Illness H&P Date: 02/24/20 Chief Complaint: Right hip fracture Patient is a 74-year-old male seen at bedside this morning. He was admitted through the emergency department last evening after a fall at his intermediate facility where he resides. X-rays in the emergency department showed a nondisplaced right femoral neck fracture. He has pain at the right hip is as expected. He has also tested positive for COVID 19. Further history and complaints are difficult to ascertain due to his mental status. Review of Systems ROS unobtainable: due to mental status Past Medical History Past Medical History: Heart Failure, COPD, Diabetes Mellitus, Hyperlipidemia, Hypertension Additional Past Medical History / Comment(s): enlarged prostate. History of Any Multi-Drug Resistant Organisms: None Reported Past Surgical History: Back Surgery Additional Past Surgical History / Comment(s): left first and second finger amputation. Past Anesthesia/Blood Transfusion Reactions: No Reported Reaction Past Psychological History: Anxiety Additional Psychological History / Comment(s): Pt currently at [facility] on [facility] states for rehab. 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 Smoking Status: Former smoker Past Alcohol Use History: None Reported Additional Past Alcohol Use History / Comment(s): Pt started smoking about 1960 and states he quit years ago but cannot recall exactly when. He states he has not drank alcohol in years as well. Past Drug Use History: None Reported - Past Family History Brother(s) Family Medical History: Cancer Mother Family Medical History: Diabetes Mellitus, Renal Disease Medications and Allergies Home Medications Medication Instructions Recorded Confirmed Type Tamsulosin [Flomax] 0.8 mg PO DAILY@0900 04/27/02/23/20 History Furosemide [Lasix] 40 mg PO BID@0600,1300 09/01/19 02/23/20 History Linagliptin [Tradjenta] 5 mg PO DAILY@89912/24/19 02/23/20 History Lisinopril [Prinivil] 10 mg PO DAILY@89912/24/19 02/23/20 History Sennosides-Docusate Sodium 1 tab PO DAILY PRN 12/24/19 02/23/20 History [Senokot-S] buPROPion XL [Wellbutrin XL] 150 mg PO DAILY@0900 12/24/19 02/23/20 History hydrALAZINE HCL [Apresoline] 25 mg PO TID@0600,1400,209912/24/19 02/23/20 History ALPRAZolam [Xanax] 0.25 mg PO DAILY@0800,1700 PRN 02/23/20 02/23/20 History Acetaminophen Tab [Tylenol] 650 mg PO Q4H PRN 02/23/20 02/23/20 History Aspirin 81 mg PO DAILY@0902/23/20 02/23/20 History Atorvastatin [Lipitor] 20 mg PO HS@209902/23/20 02/23/20 History Calcium Carbonate [Tums] 1,000 mg PO Q6H PRN 02/23/20 02/23/20 History Escitalopram [Lexapro] 10 mg PO DAILY@0902/23/20 02/23/20 History Insulin Glargine,Hum.rec.anlog 10 unit SQ HS@209902/23/20 02/23/20 History [Basaglar Kwikpen U-100] Isosorbide Mononitrate ER [Imdur] 30 mg PO DAILY@0902/23/20 02/23/20 History Loperamide HCl [Loperamide] 2 mg PO DAILY PRN 02/23/20 02/23/20 History Metoprolol Tartrate [Lopressor] 50 mg PO BID@0900,209902/23/20 02/23/20 History Omeprazole 20 mg PO DAILY@0602/23/20 02/23/20 History Potassium Chloride [Klor-Con 20 20 meq PO DAILY@0902/23/20 02/23/20 History Packets] Umeclidinium [place] [Incruse 1 puff INHALATION RT-DAILY@89902/23/20 02/23/20 History Ellipta] Visine Tears 1 drop BOTH EYES DAILY PRN 02/23/20 02/23/20 History Allergies Allergy/AdvReac Type Severity Reaction Status Date / Time iodine Allergy Rash/Hives Verified 02/23/20 21:33 morphine AdvReac Hallucinati Verified 02/23/20 21:33 ons Physical Examination In general he is in no apparent distress. He is not alert and oriented 3 Inspection of the right lower extremity shows no significant deformity. There are no wounds or erythema throughout the right lower extremity. Range of motion of the right hip is not tested due to the fracture. Motor and sensation appears to be grossly intact throughout the right lower extremity. Calf is soft and nontender. 2+ dorsalis pedis pulse and less than 2 second capillary refill is present. Results X-ray the pelvis show a nondisplaced right femoral neck fracture. - Labs Labs: Abnormal Lab Results - Last 24 Hours (Table) 02/23/20 02/23/20 02/23/20 Range/Units 20:00 20:00 20:00 RBC 2.87 L (4.30-5.90) m/uL Hgb 7.0 L (13.0-17.5) gm/dL Hct 23.2 L (39.0-53.0) % MCH 24.5 L (25.0-35.0) pg MCHC 30.2 L (31.0-37.0) g/dL RDW 16.9 H (11.5-15.5) % Neutrophils # (1.3-7.7) k/uL Lymphocytes # 0.5 L (1.0-4.8) k/uL INR 1.2 H (<1.2) BUN 76 H (9-20) mg/dL Creatinine 3.33 H (0.66-1.25) mg/dL Glucose 126 H (74-99) mg/dL POC Glucose (mg/dL) (75-99) mg/dL Calcium 8.3 L (8.4-10.2) mg/dL Phosphorus 5.5 H (2.5-4.5) mg/dL AST 116 H (17-59) U/L ALT 126 H (4-49) U/L Troponin I (0.000-0.034) ng/mL Total Protein 5.8 L (6.3-8.2) g/dL Albumin 3.1 L (3.5-5.0) g/dL Coronavirus (PCR) (Not Detectd) Crossmatch 02/23/20 02/23/20 02/24/20 Range/Units 20:00 22:15 06:40 RBC 2.82 L (4.30-5.90) m/uL Hgb 6.9 L* (13.0-17.5) gm/dL Hct 23.6 L (39.0-53.0) % MCH 24.4 L (25.0-35.0) pg MCHC 29.1 L (31.0-37.0) g/dL RDW 16.7 H (11.5-15.5) % Neutrophils # 8.8 H (1.3-7.7) k/uL Lymphocytes # 0.4 L (1.0-4.8) k/uL INR (<1.2) BUN (9-20) mg/dL Creatinine (0.66-1.25) mg/dL Glucose (74-99) mg/dL POC Glucose (mg/dL) (75-99) mg/dL Calcium (8.4-10.2) mg/dL Phosphorus (2.5-4.5) mg/dL AST (17-59) U/L ALT (4-49) U/L Troponin I 0.047 H* (0.000-0.034) ng/mL Total Protein (6.3-8.2) g/dL Albumin (3.5-5.0) g/dL Coronavirus (PCR) Detected A (Not Detectd) Crossmatch 02/24/20 02/24/20 02/24/20 Range/Units 06:40 07:10 08:29 RBC (4.30-5.90) m/uL Hgb (13.0-17.5) gm/dL Hct (39.0-53.0) % MCH (25.0-35.0) pg MCHC (31.0-37.0) g/dL RDW (11.5-15.5) % Neutrophils # (1.3-7.7) k/uL Lymphocytes # (1.0-4.8) k/uL INR (<1.2) BUN 76 H (9-20) mg/dL Creatinine 3.51 H (0.66-1.25) mg/dL Glucose 146 H (74-99) mg/dL POC Glucose (mg/dL) 202 H (75-99) mg/dL Calcium (8.4-10.2) mg/dL Phosphorus (2.5-4.5) mg/dL AST 83 H (17-59) U/L ALT 121 H (4-49) U/L Troponin I (0.000-0.034) ng/mL Total Protein 5.7 L (6.3-8.2) g/dL Albumin 3.2 L (3.5-5.0) g/dL Coronavirus (PCR) (Not Detectd) Crossmatch See Detail 02/24/20 02/24/20 Range/Units 08:29 11:34 RBC (4.30-5.90) m/uL Hgb (13.0-17.5) gm/dL Hct (39.0-53.0) % MCH (25.0-35.0) pg MCHC (31.0-37.0) g/dL RDW (11.5-15.5) % Neutrophils # (1.3-7.7) k/uL Lymphocytes # (1.0-4.8) k/uL INR (<1.2) BUN (9-20) mg/dL Creatinine (0.66-1.25) mg/dL Glucose (74-99) mg/dL POC Glucose (mg/dL) 238 H (75-99) mg/dL Calcium (8.4-10.2) mg/dL Phosphorus (2.5-4.5) mg/dL AST (17-59) U/L ALT (4-49) U/L Troponin I 0.054 H* (0.000-0.034) ng/mL Total Protein (6.3-8.2) g/dL Albumin (3.5-5.0) g/dL Coronavirus (PCR) (Not Detectd) Crossmatch H & H 02/23/20 02/24/20 Range/Units 20:00 06:40 Hgb 7.0 L 6.9 L* (13.0-17.5) gm/dL Hct 23.2 L 23.6 L (39.0-53.0) % Coagulation 02/23/20 Range/Units 20:00 INR 1.2 H (<1.2) Result Diagrams: 02/24/20 06:40 02/24/20 06:40 Assessment and Plan Assessment: Assessment: nondisplaced right femoral neck fracture Plan: Patient has been reviewed with Dr. Angel. Plan is to proceed with surgical intervention including closed reduction percutaneous pinning of the right femoral neck fracture. Internal medicine has been consult for preoperative clearance and medical management. He will also need cardiology, pulmonology and nephrology clearances. His hemoglobin was low and will require 1 unit of packed red blood cells. He will be nothing by mouth after midnight. Procedure has been ordered and plan will be to proceed with surgery early tomorrow morning, 02/25/2020 pending he is cleared. Time with Patient: Less than 30 <Juan Angel - Last Filed: 02/24/20 14:49> Results - Labs Labs: Abnormal Lab Results - Last 24 Hours (Table) 02/23/20 02/23/20 02/23/20 Range/Units 20:00 20:00 20:00 RBC 2.87 L (4.30-5.90) m/uL Hgb 7.0 L (13.0-17.5) gm/dL Hct 23.2 L (39.0-53.0) % MCH 24.5 L (25.0-35.0) pg MCHC 30.2 L (31.0-37.0) g/dL RDW 16.9 H (11.5-15.5) % Neutrophils # (1.3-7.7) k/uL Lymphocytes # 0.5 L (1.0-4.8) k/uL INR 1.2 H (<1.2) BUN 76 H (9-20) mg/dL Creatinine 3.33 H (0.66-1.25) mg/dL Glucose 126 H (74-99) mg/dL POC Glucose (mg/dL) (75-99) mg/dL Calcium 8.3 L (8.4-10.2) mg/dL Phosphorus 5.5 H (2.5-4.5) mg/dL AST 116 H (17-59) U/L ALT 126 H (4-49) U/L Troponin I (0.000-0.034) ng/mL Total Protein 5.8 L (6.3-8.2) g/dL Albumin 3.1 L (3.5-5.0) g/dL Coronavirus (PCR) (Not Detectd) Crossmatch 02/23/20 02/23/20 02/24/20 Range/Units 20:00 22:15 06:40 RBC 2.82 L (4.30-5.90) m/uL Hgb 6.9 L* (13.0-17.5) gm/dL Hct 23.6 L (39.0-53.0) % MCH 24.4 L (25.0-35.0) pg MCHC 29.1 L (31.0-37.0) g/dL RDW 16.7 H (11.5-15.5) % Neutrophils # 8.8 H (1.3-7.7) k/uL Lymphocytes # 0.4 L (1.0-4.8) k/uL INR (<1.2) BUN (9-20) mg/dL Creatinine (0.66-1.25) mg/dL Glucose (74-99) mg/dL POC Glucose (mg/dL) (75-99) mg/dL Calcium (8.4-10.2) mg/dL Phosphorus (2.5-4.5) mg/dL AST (17-59) U/L ALT (4-49) U/L Troponin I 0.047 H* (0.000-0.034) ng/mL Total Protein (6.3-8.2) g/dL Albumin (3.5-5.0) g/dL Coronavirus (PCR) Detected A (Not Detectd) Crossmatch 02/24/20 02/24/20 02/24/20 Range/Units 06:40 07:10 08:29 RBC (4.30-5.90) m/uL Hgb (13.0-17.5) gm/dL Hct (39.0-53.0) % MCH (25.0-35.0) pg MCHC (31.0-37.0) g/dL RDW (11.5-15.5) % Neutrophils # (1.3-7.7) k/uL Lymphocytes # (1.0-4.8) k/uL INR (<1.2) BUN 76 H (9-20) mg/dL Creatinine 3.51 H (0.66-1.25) mg/dL Glucose 146 H (74-99) mg/dL POC Glucose (mg/dL) 202 H (75-99) mg/dL Calcium (8.4-10.2) mg/dL Phosphorus (2.5-4.5) mg/dL AST 83 H (17-59) U/L ALT 121 H (4-49) U/L Troponin I (0.000-0.034) ng/mL Total Protein 5.7 L (6.3-8.2) g/dL Albumin 3.2 L (3.5-5.0) g/dL Coronavirus (PCR) (Not Detectd) Crossmatch See Detail 02/24/20 02/24/20 Range/Units 08:29 11:34 RBC (4.30-5.90) m/uL Hgb (13.0-17.5) gm/dL Hct (39.0-53.0) % MCH (25.0-35.0) pg MCHC (31.0-37.0) g/dL RDW (11.5-15.5) % Neutrophils # (1.3-7.7) k/uL Lymphocytes # (1.0-4.8) k/uL INR (<1.2) BUN (9-20) mg/dL Creatinine (0.66-1.25) mg/dL Glucose (74-99) mg/dL POC Glucose (mg/dL) 238 H (75-99) mg/dL Calcium (8.4-10.2) mg/dL Phosphorus (2.5-4.5) mg/dL AST (17-59) U/L ALT (4-49) U/L Troponin I 0.054 H* (0.000-0.034) ng/mL Total Protein (6.3-8.2) g/dL Albumin (3.5-5.0) g/dL Coronavirus (PCR) (Not Detectd) Crossmatch H & H 02/23/20 02/24/20 Range/Units 20:00 06:40 Hgb 7.0 L 6.9 L* (13.0-17.5) gm/dL Hct 23.2 L 23.6 L (39.0-53.0) % Coagulation 02/23/20 Range/Units 20:00 INR 1.2 H (<1.2) Result Diagrams: 02/24/20 06:40 02/24/20 06:40 Assessment and Plan Plan: Reviewed and agree with above (amendments/corrections noted below). The patient was subsequently seen and examined by me as well. S: The injury occurred at rehab. He states that he was getting up to go into the bathroom and lost his balance, falling onto his right side. He admits to pain in the right hip as well as his right ribs. He also struck his head but denies loss of consciousness. He normally lives alone at home and ambulates with the assistance of a walker. The patient tested positive for COVID-19. He does not recall a specific recent illness but states that he did have a cough over the past couple weeks. O: No ecchymosis or abrasions over the right hip. Mild tenderness to palpation over the greater trochanter. Positive logroll. Leg lengths appear symmetric in the limb does not appear abnormally rotated. Intact active dorsiflexion and plantarflexion. Subjectively normal sensation throughout the lower extremity, symmetric to the contralateral side. Moderate pretibial pitting edema bilaterally, extending to the proximal third of the leg. Imaging: Nondisplaced transcervical right femoral neck fracture, P[place]wel's 2. No advanced degenerative changes in the femoroacetabular joint. A: Nondisplaced transcervical right femoral neck fracture status post fall on 02/23/20. Anemia (likely of chronic disease) Multiple medical comorbidities, including COPD, CHF, CKD, DM COVID-19 + P: I discussed the diagnosis and radiographic findings with the patient. We r eviewed the pertinent anatomy and pathophysiology of the injury. We discussed treatment options and I explained the rationale behind surgical intervention. The fracture appears nondisplaced and I recommended operative treatment with in- situ screw fixation. Risks and benefits were reviewed including (but not limited to) the risks of infection, bleeding, blood clots, AVN, nonunion and possible need for additional surgery. We discussed the surgical plan and the expectation for 4-8 weeks of nonWB/limited weightbearing while the fracture heals. We discussed future surgical treatment with hemiarthroplasty for nonunion or AVN. Questions were invited and answered. The patient expressed understanding and wishes to proceed with surgery. The patient will be kept on bedrest. Continue PRN pain management. NPO after midnight. We will plan for surgery after preoperative evaluation and surgical clearance. Juan Angel D.O. [facility]
[2020-02-24] MEDS ORDERED: ALBUTEROL HFA INHALER INHALATION PRN (11:53)
[2020-02-24] MEDS ORDERED: IPRATROPIUM-ALBUTEROL 3 ML NEB INHALATION SCH (12:00)
[2020-02-24] MEDS: ALBUTEROL HFA INHALER INHALATION SCH ×3 (12:09→20:37)
[2020-02-24] MEDS: INSULIN ASPART (NovoLOG) 100 UNIT/ML VIAL SQ SCH ×3 (12:18→20:33)
[2020-02-24] MEDS ORDERED: FUROSEMIDE 40 MG TAB PO SCH (13:00)
--- NOTE | 2020-02-24 13:01 | P.NPCON ---
History of Present Illness - Reason for Consult acute renal failure, chronic renal failure - History of Present Illness Reason for consultation: Acute kidney injury on chronic kidney disease History of present illness: Patient is a 74-year-old male seen in renal consultation for acute kidney injury on chronic kidney disease. Patient presented to the hospital after he sustained a fall and head a right femoral neck fracture. patient has been evaluated by orthopedic surgery and there are plans for surgical intervention tomorrow morning. Patient's hemoglobin today is 6.9 any scheduled to receive a unit of blood. He is quite edematous in his lower extremity. He has a Orellana catheter and is nonoliguric. He has long-standing history of diabetes mellitus. Patient has chronic kidney disease stage III with baseline creatinine in the range of 1.6-2. He has also tested positive for coronavirus. Urinalysis is benign. Chest x-ray suggestive of fluid overload. Patient is currently sleeping. He is not a very reliable historian at this time. Case was discussed with the nurse. Oral intake has been fair. Hemodynamically he has been stable. Vital signs are stable. General: The patient appeared well nourished and normally developed. HEENT: Head exam is unremarkable. Neck is without jugular venous distension. LUNGS: Lungs are clear to auscultation and percussion. Breath sounds decreased. HEART: Rate and Rhythm are regular. ABDOMEN: no distention noted. EXTREMITITES: 2+ edema. Past Medical History Past Medical History: Heart Failure, COPD, Diabetes Mellitus, Hyperlipidemia, Hypertension Additional Past Medical History / Comment(s): enlarged prostate. History of Any Multi-Drug Resistant Organisms: None Reported Past Surgical History: Back Surgery Additional Past Surgical History / Comment(s): left first and second finger amputation. Past Anesthesia/Blood Transfusion Reactions: No Reported Reaction Past Psychological History: Anxiety Additional Psychological History / Comment(s): Pt currently at [facility] on the [place] he states for rehab. 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 Smoking Status: Former smoker Past Alcohol Use History: None Reported Additional Past Alcohol Use History / Comment(s): Pt started smoking about 1959 and states he quit years ago but cannot recall exactly when. He states he has not drank alcohol in years as well. Past Drug Use History: None Reported - Past Family History Brother(s) Family Medical History: Cancer Mother Family Medical History: Diabetes Mellitus, Renal Disease Medications and Allergies Home Medications Medication Instructions Recorded Confirmed Type Tamsulosin [Flomax] 0.8 mg PO DAILY@0900 04/27/14 02/23/20 History Furosemide [Lasix] 40 mg PO BID@0600,1300 09/01/19 02/23/20 History Linagliptin [Tradjenta] 5 mg PO DAILY@0912/24/19 02/23/20 History Lisinopril [Prinivil] 10 mg PO DAILY@0912/24/19 02/23/20 History Sennosides-Docusate Sodium 1 tab PO DAILY PRN 12/24/19 02/23/20 History [Senokot-S] buPROPion XL [Wellbutrin XL] 150 mg PO DAILY@0912/24/19 02/23/20 History hydrALAZINE HCL [Apresoline] 25 mg PO TID@0600,1400,2100 12/24/19 02/23/20 History ALPRAZolam [Xanax] 0.25 mg PO DAILY@0800,1700 PRN 02/23/20 02/23/20 History Acetaminophen Tab [Tylenol] 650 mg PO Q4H PRN 02/23/20 02/23/20 History Aspirin 81 mg PO DAILY@89902/23/20 02/23/20 History Atorvastatin [Lipitor] 20 mg PO HS@209902/23/20 02/23/20 History Calcium Carbonate [Tums] 1,000 mg PO Q6H PRN 02/23/20 02/23/20 History Escitalopram [Lexapro] 10 mg PO DAILY@0902/23/20 02/23/20 History Insulin Glargine,Hum.rec.anlog 10 unit SQ HS@209902/23/20 02/23/20 History [Basaglar Kwikpen U-100] Isosorbide Mononitrate ER [Imdur] 30 mg PO DAILY@0902/23/20 02/23/20 History Loperamide HCl [Loperamide] 2 mg PO DAILY PRN 02/23/20 02/23/20 History Metoprolol Tartrate [Lopressor] 50 mg PO BID@0900,2100 02/23/20 02/23/20 History Omeprazole 20 mg PO DAILY@0602/23/2020 History Potassium Chloride [Klor-Con 20 20 meq PO DAILY@0902/23/20 02/23/20 History Packets] Umeclidinium [place] [Incruse 1 puff INHALATION RT-DAILY@0902/23/20 02/23/20 History Ellipta] Visine Tears 1 drop BOTH EYES DAILY PRN 02/23/20 02/23/20 History Allergies Allergy/AdvReac Type Severity Reaction Status Date / Time iodine Allergy Rash/Hives Verified 02/23/20 21:33 morphine AdvReac Hallucinati Verified 02/23/20 21:33 ons Physical Exam Vitals: Vital Signs Temp Pulse Pulse Resp BP BP Pulse Ox 02/24/20 11:56 97.7 F 71 16 135/75 93 L 02/24/20 11:26 97.7 F 74 122/68 91 L 02/24/20 11:16 97.6 F 78 16 129/74 90 L 02/24/20 07:15 97.8 F 76 16 129/67 90 L 02/24/20 05:31 18 02/24/20 03:49 98.1 F 70 18 109/62 92 L 02/24/20 00:33 98.2 F 66 16 125/73 94 L 02/24/20 00:00 18 02/23/20 23:20 98.7 F 67 18 111/72 100 02/23/20 22:50 67 22 118/63 100 02/23/20 22:40 69 118/63 95 02/23/20 22:30 66 118/63 95 02/23/20 22:20 69 118/63 93 L 02/23/20 22:10 69 118/63 92 L 02/23/20 22:00 70 22 152/90 95 02/23/20 21:50 152/90 02/23/20 21:40 70 152/90 94 L 02/23/20 21:30 72 152/90 95 02/23/20 21:20 75 152/90 93 L 02/23/20 21:10 73 152/90 98 02/23/20 21:05 84 02/23/20 21:00 74 137/78 100 02/23/20 20:50 71 137/78 100 02/23/20 20:47 71 02/23/20 20:40 68 137/78 04/27/20 20:30 68 137/78 02/23/20 20:20 69 137/78 99 02/23/20 20:10 137/78 96 02/23/20 20:00 141/78 95 02/23/20 19:50 68 22 141/78 99 02/23/20 19:40 141/78 95 02/23/20 19:30 69 22 141/78 99 02/23/20 19:20 140/77 99 02/23/20 19:10 140/77 99 02/23/20 19:06 98 02/23/20 19:00 98.2 F 61 20 140/77 97 Intake and Output 02/23/20 02/24/20 02/24/20 22:59 06:59 14:59 Intake Total 0 Balance 0 Intake: Blood Product 0 Rc As-1 Unit 0 [id number] Other: Voiding Method Indwelling Catheter Weight 71.668 kg Results - Lab Results Most recent lab results Calcium 8.5 mg/dL (8.4-10.2) 02/24/20 06:40 Phosphorus 5.5 mg/dL (2.5-4.5) H 02/23/20 20:00 Magnesium 2.1 mg/dL (1.6-2.3) 02/23/20 20:00 02/24/20 06:40 02/24/20 06:40 Assessment and Plan Plan: Assessment: 1. Acute kidney injury secondary to ATN secondary to cardiorenal syndrome and additional component of covid-19 infection and acute blood loss anemia. creatinine was 3.33 on admission and is up to 3.5 today. UA benign. 2. Chronic kidney disease stage III secondary to nephrosclerosis with baseline creatinine in the range of 1.62. 3. Acute blood loss anemia scheduled for blood transfusion today. 4. Status post fall with right femoral neck fracture. Scheduled for surgery tomorrow. 5. Covid 19 positive. 6. Insulin-dependent diabetes mellitus. 7. Volume overload. 8. Acute on chronic diastolic CHF with moderate mitral regurgitation, moderate to severe tricuspid regurgitation. 9. Severe pulmonary hypertension. Plan: Hep-Lock IV fluids. Start IV Lasix 40 mg twice daily. Scheduled for 1 unit of packed red cell transfusion today. Check renal ultrasound. Avoid nephrotoxins. Maintain Orellana. Continue to monitor renal function and urine output. Thank you for the consultation. I will continue to follow the patient with you during his hospital stay.
--- NOTE | 2020-02-24 14:34 | P.CRDCN ---
History of Present Illness History of present illness: HISTORY OF PRESENTING ILLNESS This is a pleasant 74-year-old male past medical history significant for diastolic heart failure, COPDon home oxygen, diabetes mellitus, hypertension and dyslipidemia. 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 We have been asked to see in consultation for preoperative evaluation. He is currently residing at [facility] on [facility] and suffered a fall in the shower last night sustaining a nondisplaced right femoral neck fracture. He has been seen in evaluation by orthopedic surgery and is scheduled to undergo surgical repair tomorrow morning. He is seen and examined sitting up in bed in mild respiratory distress. He states he has been having ongoing shortness of breath since his previous admission in November. At that time he was treated for acute exacerbation of diastolic heart failure. Chest x-rays obtained on this admission revealed pleural effusion and pulmonary edema worsened compared to November chest x-rays. EKG reveals sinus mechanism with heart rate of 71. Laboratory data reviewed. Covid 19 positive, hemoglobin 6.9, platelets 174, sodium 138, potassium 4.2, creatinine 3.51 with a GFR 16, troponin 0.047 and 0.054 and NT proBNP 25,000. He has been initiated on IV lasix per nephrology and has PRBC infusing currently. He has a healy in place with bright red blood noted in the tubing and drainage bag. Most recent echocardiogram obtained 11/2019 reveals preserved LV systolic function with ejection fraction 50-55%, grade 2 diastolic dysfunction, mild aortic regurgitation, mild aortic stenosis with a mean gradient of 14 mmHg, moderate mitral regurgitation, moderate to severe tricuspid regurgitation and severe pulmonary hypertension with an RVSP of 67 mmHg. Current daily cardiac medications includeaspirin 81 mg daily, Imdur 30 mg daily, atorvastatin 20 mg daily, lisinopril 10 mg daily, Lasix 40 mg twice a day, Lopressor 50 mg twice a day and hydralazine 25 mg 3 times a day. REVIEW OF SYSTEMS At the time of my exam: CONSTITUTIONAL: Denies fever or chills. CARDIOVASCULAR: Complains of shortness of breath and orthopnea. Denies chest pain, PND or palpitations. RESPIRATORY: Denies cough. GASTROINTESTINAL: Denies abdominal pain, diarrhea, constipation, nausea or vomiting. MUSCULOSKELETAL: Complains of right hip and leg pain. NEUROLOGIC: Denies numbness, tingling or weakness. ENDOCRINE: Denies fatigue, weight change, polydipsia or polyurina. GENITOURINARY: Denies burning, hematuria or urgency with micturation. HEMATOLOGIC: Denies history of anemia or bleeding. PHYSICAL EXAMINATION Blood pressure 135/75 heart rate 71 afebrile and maintaining oxygen saturation on nasal cannula. CONSTITUTIONAL: Mild respiratory distress. HEENT: Head is normocephalic. Pupils are equal, round. Sclerae anicteric. Mucous membranes of the mouth are moist. Bilateral 1 cm JVD. No carotid bruit. CHEST EXAMINATION: Bibailar rales, faint expiratory wheezes. No rhonchi. No chest wall tenderness is noted on palpation or with deep breathing. HEART EXAMINATION: Regular rate and rhythm. S1, S2 heard. Systolic ejection murmur at the base and apex. No gallops or rub. ABDOMEN: Soft, nontender. Positive bowel sounds. Bright red blood noted on healy catheter tubing. EXTREMITIES: 2+ peripheral pulses, 1+ bilateral lower extremity pitting edema and no calf tenderness. NEUROLOGIC EXAMINATION: Patient is awake, alert and oriented x3. ASSESSMENT Acute on chronic diastolic heart failure Acute on chronic kidney disease Right femoral neck fracture s/p fall in the shower COVID 19 Anemia COPD on home oxygen Diabetes mellitus Hypertension Dyslipidmeia Valvular heart disease Pulmonary hypertension PLAN Continue with IV diuresis. Given his respiratory distress, fluid overload, anemia and acute kidney injury he is quite high risk to undergo immediate surgical intervention. Recommend optimizing his heart failure first and re-evaluating his surgical status in another 24 hours. Document strict intake and output along with daily weights. Follow renal function and electrolytes in the morning. Thank you kindly for this consultation. Nurse Practitioner note has been reviewed, I agree with a documented findings and plan of care. Patient was seen and examined. Past Medical History Past Medical History: Heart Failure, COPD, Diabetes Mellitus, Hyperlipidemia, Hypertension Additional Past Medical History / Comment(s): enlarged prostate. History of Any Multi-Drug Resistant Organisms: None Reported Past Surgical History: Back Surgery Additional Past Surgical History / Comment(s): left first and second finger ampu tation. Past Anesthesia/Blood Transfusion Reactions: No Reported Reaction Past Psychological History: Anxiety Additional Psychological History / Comment(s): Pt currently at [facility] on the [facility] states for rehab. 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 Smoking Status: Former smoker Past Alcohol Use History: None Reported Additional Past Alcohol Use History / Comment(s): Pt started smoking about 1960 and states he quit years ago but cannot recall exactly when. He states he has not drank alcohol in years as well. Past Drug Use History: None Reported - Past Family History Brother(s) Family Medical History: Cancer Mother Family Medical History: Diabetes Mellitus, Renal Disease Medications and Allergies Home Medications Medication Instructions Recorded Confirmed Type Tamsulosin [Flomax] 0.8 mg PO DAILY@0904/27/14 02/23/20 History Furosemide [Lasix] 40 mg PO BID@0600,1300 09/01/19 02/23/20 History Linagliptin [Tradjenta] 5 mg PO DAILY@89912/24/19 02/23/20 History Lisinopril [Prinivil] 10 mg PO DAILY@89912/24/19 02/23/20 History Sennosides-Docusate Sodium 1 tab PO DAILY PRN 12/24/19 02/23/20 History [Senokot-S] buPROPion XL [Wellbutrin XL] 150 mg PO DAILY@89912/24/19 02/23/20 History hydrALAZINE HCL [Apresoline] 25 mg PO TID@0600,1400,2100 12/24/19 02/23/20 History ALPRAZolam [Xanax] 0.25 mg PO DAILY@0800,1700 PRN 02/23/20 02/23/20 History Acetaminophen Tab [Tylenol] 650 mg PO Q4H PRN 02/23/20 02/23/20 History Aspirin 81 mg PO DAILY@89902/23/20 02/23/20 History Atorvastatin [Lipitor] 20 mg PO HS@209902/23/20 02/23/20 History Calcium Carbonate [Tums] 1,000 mg PO Q6H PRN 02/23/20 02/23/20 History Escitalopram [Lexapro] 10 mg PO DAILY@89902/23/20 02/23/20 History Insulin Glargine,Hum.rec.anlog 10 unit SQ HS@209902/23/20 02/23/20 History [Basaglar Kwikpen U-100] Isosorbide Mononitrate ER [Imdur] 30 mg PO DAILY@0900 02/23/20 02/23/20 History Loperamide HCl [Loperamide] 2 mg PO DAILY PRN 02/23/20 02/23/20 History Metoprolol Tartrate [Lopressor] 50 mg PO BID@0900,2100 02/23/20 02/23/20 History Omeprazole 20 mg PO DAILY@0600 02/23/20 02/23/20 History Potassium Chloride [Klor-Con 20 20 meq PO DAILY@0900 02/23/20 02/23/20 History Packets] Umeclidinium [place] [Incruse 1 puff INHALATION RT-DAILY@0902/23/20 02/23/20 History Ellipta] Visine Tears 1 drop BOTH EYES DAILY PRN 02/23/20 02/23/20 History Allergies Allergy/AdvReac Type Severity Reaction Status Date / Time iodine Allergy Rash/Hives Verified 02/23/20 21:33 morphine AdvReac Hallucinati Verified 02/23/20 21:33 ons Physical Exam Vitals: Vital Signs Temp Pulse Pulse Resp BP BP Pulse Ox 02/24/20 11:56 97.7 F 71 16 135/75 93 L 02/24/20 11:26 97.7 F 74 122/68 91 L 02/24/20 11:16 97.6 F 78 16 129/74 90 L 02/24/20 07:15 97.8 F 76 16 129/67 90 L 02/24/20 05:31 18 02/24/20 03:49 98.1 F 70 18 109/62 92 L 02/24/20 00:33 98.2 F 66 16 125/73 94 L 02/24/20 00:00 18 02/23/20 23:20 98.7 F 67 18 111/72 100 02/23/20 22:50 67 22 118/63 100 02/23/20 22:40 69 118/63 95 02/23/20 22:30 66 118/63 95 02/23/20 22:20 69 118/63 93 L 02/23/20 22:10 69 118/63 92 L 02/23/20 22:00 70 22 152/90 95 02/23/20 21:50 152/90 02/23/20 21:40 70 152/90 94 L 02/23/20 21:30 72 152/90 95 02/23/20 21:20 75 152/90 93 L 02/23/20 21:10 73 152/90 98 02/23/20 21:05 84 02/23/20 21:00 74 137/78 100 02/23/20 20:50 71 137/78 100 02/23/20 20:47 71 02/23/20 20:40 68 137/78 02/23/20 20:30 68 137/78 02/23/20 20:20 69 137/78 99 02/23/20 20:10 137/78 96 02/23/20 20:00 141/78 95 02/23/20 19:50 68 22 141/78 99 02/23/20 19:40 141/78 95 02/23/20 19:30 69 22 141/78 99 02/23/20 19:20 140/77 99 02/23/20 19:10 140/77 99 02/23/20 19:06 98 02/23/20 19:00 98.2 F 61 20 140/77 97 Intake and Output 02/23/20 02/24/20 02/24/20 22:59 06:59 14:59 Intake Total 0 Balance 0 Intake: Blood Product 0 Rc As-1 Unit 0 [id number] Other: Voiding Method Indwelling Catheter Weight 71.668 kg Results 02/24/20 06:40 02/24/20 06:40 Cardiac Enzymes 02/23/20 02/23/20 02/24/20 Range/Units 20:00 20:00 06:40 AST 116 H 83 H (17-59) U/L Troponin I 0.047 H* (0.000-0.034) ng/mL 02/24/20 Range/Units 08:29 AST (17-59) U/L Troponin I 0.054 H* (0.000-0.034) ng/mL Coagulation 02/23/20 Range/Units 20:00 PT 11.9 (9.0-12.0) sec APTT 22.5 (22.0-30.0) sec CBC 02/23/20 02/24/20 Range/Units 20:00 06:40 WBC 8.0 10.0 (3.8-10.6) k/uL RBC 2.87 L 2.82 L (4.30-5.90) m/uL Hgb 7.0 L 6.9 L* (13.0-17.5) gm/dL Hct 23.2 L 23.6 L (39.0-53.0) % Plt Count 193 174 (150-450) k/uL Comprehensive Metabolic Panel 02/23/20 02/24/20 Range/Units 20:00 06:40 Sodium 137 138 (137-145) mmol/L Potassium 4.0 4.2 (3.5-5.1) mmol/L Chloride 101 101 (98-107) mmol/L Carbon Dioxide 23 23 (22-30) mmol/L BUN 76 H 76 H (9-20) mg/dL Creatinine 3.33 H 3.51 H (0.66-1.25) mg/dL Glucose 126 H 146 H (74-99) mg/dL Calcium 8.3 L 8.5 (8.4-10.2) mg/dL AST 116 H 83 H (17-59) U/L ALT 126 H 121 H (4-49) U/L Alkaline Phosphatase 89 89 (38-126) U/L Total Protein 5.8 L 5.7 L (6.3-8.2) g/dL Albumin 3.1 L 3.2 L (3.5-5.0) g/dL Current Medications Generic Name Dose Route Start Last Admin Trade Name Freq PRN Reason Stop Dose Admin Acetaminophen 650 mg 02/24/20 11:42 Tylenol Tab PO Q4H PRN Pain Albuterol Sulfate 2 puff 02/24/20 12:00 02/24/20 12:09 Ventolin Hfa Inhaler INHALATION Not Given RT-QID JN Albuterol Sulfate 2 puff 02/24/20 11:53 Ventolin Hfa Inhaler INHALATION RT-Q2H PRN Shortness Of Breath Or Wheezing Alprazolam 0.25 mg 02/24/20 17:00 Xanax PO DAILY@0800,1700 PRN Anxiety Artificial Tears 1 drops 02/24/20 11:42 Artificial Tear Drops BOTH EYES DAILY PRN dry eyes Atorvastatin Calcium 20 mg 02/24/20 21:00 Lipitor PO HS@2100 [facility] Bupropion HCl 150 mg 02/25/20 09:00 Wellbutrin Xl PO DAILY@0900 [facility] Escitalopram Oxalate 10 mg 02/25/20 09:00 Lexapro PO DAILY@0900 [facility] Furosemide 40 mg 02/24/20 21:00 Lasix IV BID [facility] Hydralazine HCl 25 mg 02/24/20 14:00 Apresoline PO TID@0600,1400,2100 [facility] Hydromorphone HCl 0.5 mg 02/24/20 11:40 Dilaudid IVP Q4HR PRN Pain Insulin Aspart 0 unit 02/24/20 12:30 02/24/20 12:18 Novolog SQ 3 unit ACHS [facility] Administration Protocol Insulin Detemir 10 unit 02/24/20 21:00 Levemir SQ HS@2100 [facility] Isosorbide Mononitrate 30 mg 02/25/20 09:00 Imdur PO DAILY@0900 [facility] Linagliptin 5 mg 02/25/20 09:00 Tradjenta PO DAILY@0900 [facility] Metoprolol Tartrate 50 mg 02/24/20 21:00 Lopressor PO BID@0900,2100 [facility] Pantoprazole Sodium 20 mg 02/25/20 07:30 Protonix PO AC-BRKFST [facility] Senna/Docusate Sodium 1 each 02/24/20 11:42 Senokot-S PO DAILY PRN Constipation Tamsulosin HCl 0.8 mg 02/25/20 09:00 Flomax PO DAILY@0900 [facility] Tiotropium [place] 1 puff 02/25/20 08:00 Spiriva INHALATION RT-DAILY [facility] Intake and Output 02/23/20 02/24/20 02/24/20 22:59 06:59 14:59 Intake Total 0 Balance 0 Intake: Blood Product 0 Rc As-1 Unit 0 [id number] Other: Voiding Method Indwelling Catheter Weight 71.668 kg 02/24/20 06:40 02/24/20 06:40
[2020-02-24] MEDS ORDERED: FUROSEMIDE 10 MG/ML 4 ML VIAL IV STA (14:35)
[2020-02-24] MEDS: hydrALAZINE HCL 25 MG TAB PO SCH ×2 (14:40→20:30)
--- NOTE | 2020-02-24 16:19 | US ---
EXAMINATION TYPE: US kidneys/renal and bladder DATE OF EXAM: 02/24/2020 COMPARISON: US renal 07/17/2019. CT abdomen and pelvis October 14, 2019. CLINICAL HISTORY: gi. Difficult and limited exam. Covid positive patient, scanned sitting up in bed due to difficulty breathing EXAM MEASUREMENTS: Right Kidney: 8.3 x 4.9 x 4.9 cm Left Kidney: 10.4 x 4.6 x 4.1 cm Right Kidney: No hydronephrosis. Cyst visualized on previous exam not seen today Left Kidney: No hydronephrosis. two cystic areas visualized, largest measuring 3.7 x 3.4 x 3.0 cm Bladder: Patient has healy, not distended There is no evidence for hydronephrosis at this point in time. Some cortical thinning right kidney is present. Simple appearing roughly 2 cm exophytic cyst lower pole of right kidney not clearly identif ied on current study. Healy catheter in decompressed bladder. Technologist identifies partially exoph ytic 3.7 cm cyst upper pole of the left kidney and smaller simple appearing thin-walled cyst lower po le level. Cortical thinning is present. IMPRESSION: Suboptimal study without hydronephrosis identified bilaterally.
[2020-02-24 16:49] LABS: Glucose,Whole Blood 222 mg/dL (75-99)
--- NOTE | 2020-02-24 16:54 | P.CONS ---
History of Present Illness - Reason for Consult Consult date: 02/24/20 Medical management CHF, diabetes mellitus, renal failure Requesting physician: Juan Angel - Chief Complaint R hip Fracture s/p fall - History of Present Illness 74-year-old male resident currently at [facility] subacute rehab ,known to the practice with history of severe pulmonary hypertension, hypertension hyperlipidemia diabetes mellitus type 2 former smoker anxiety COPD stage III chronic renal insufficiency, recent pneumonia, early dementia (Montral cognitive scoring at [facility] 11 out of 30), admitted with right hip fracture status post fall in the shower, sustaining multiple skin tears/abrasions to right ear, right chest, bilateral forearms, riight hip. Right ear required sutures. Head and C-spine reported no spine fracture spine fracture, no acute intracranial abnormality-unchanged from prior exam. Pelvis x-ray reported nondisplaced right femoral neck fracture. EKG reportedly accelerated junctional rhythm with nonspecific ST-T wave abnormalities. Troponins 0.047, 0.054. BNP 25,000 Tested positive for coronavirus. Chest x-ray reporting CHF with pleural effusions, pulmonary edema worse than last exam .Maintaining O2 sats in the low 90s on 4 L nasal cannula. Afebrile, WBC 10, hemoglobin 6.9, platelets 174. sodium 138 potassium 4.2 bicarb 14, creatinine 3.51 (baseline around 1.9).glucose 146, mildly elevated LFTs .Evaluated by orthopedic surgery, discussing surgical repair pending pulmonary, cardiology, medical clearance. Review of Systems ROS Statement: Those systems with pertinent positive or pertinent negative responses have been documented in the HPI. ROS Other: All systems not noted in ROS Statement are negative. Past Medical History Past Medical History: Heart Failure, COPD, Diabetes Mellitus, Hyperlipidemia, Hypertension Additional Past Medical History / Comment(s): enlarged prostate. History of Any Multi-Drug Resistant Organisms: None Reported Past Surgical History: Back Surgery Additional Past Surgical History / Comment(s): left first and second finger amputation. Past Anesthesia/Blood Transfusion Reactions: No Reported Reaction Past Psychological History: Anxiety Additional Psychological History / Comment(s): Pt currently at [facility] on the [place] he states for rehab. 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 Smoking Status: Former smoker Past Alcohol Use History: None Reported Additional Past Alcohol Use History / Comment(s): Pt started smoking about 1960 and states he quit years ago but cannot recall exactly when. He states he has not drank alcohol in years as well. Past Drug Use History: None Reported - Past Family History Brother(s) Family Medical History: Cancer Mother Family Medical History: Diabetes Mellitus, Renal Disease Medications and Allergies Home Medications Medication Instructions Recorded Confirmed Type Tamsulosin [Flomax] 0.8 mg PO DAILY@0900 04/27/02/23/20 History Furosemide [Lasix] 40 mg PO BID@0600,1300 09/01/19 02/23/20 History Linagliptin [Tradjenta] 5 mg PO DAILY@0912/24/19 02/23/20 History Lisinopril [Prinivil] 10 mg PO DAILY@89912/24/19 02/23/20 History Sennosides-Docusate Sodium 1 tab PO DAILY PRN 12/24/19 02/23/20 History [Senokot-S] buPROPion XL [Wellbutrin XL] 150 mg PO DAILY@0912/24/19 02/23/20 History hydrALAZINE HCL [Apresoline] 25 mg PO TID@0600,1400,209912/24/19 02/23/20 History ALPRAZolam [Xanax] 0.25 mg PO DAILY@0800,1700 PRN 02/23/20 02/23/20 History Acetaminophen Tab [Tylenol] 650 mg PO Q4H PRN 02/23/20 02/23/20 History Aspirin 81 mg PO DAILY@0902/23/20 02/23/20 History Atorvastatin [Lipitor] 20 mg PO HS@209902/23/20 02/23/20 History Calcium Carbonate [Tums] 1,000 mg PO Q6H PRN 02/23/20 02/23/20 History Escitalopram [Lexapro] 10 mg PO DAILY@0902/23/20 02/23/20 History Insulin Glargine,Hum.rec.anlog 10 unit SQ HS@209902/23/20 02/23/20 History [Basaglar Kwikpen U-100] Isosorbide Mononitrate ER [Imdur] 30 mg PO DAILY@0900 02/23/20 02/23/20 History Loperamide HCl [Loperamide] 2 mg PO DAILY PRN 02/23/20 02/23/20 History Metoprolol Tartrate [Lopressor] 50 mg PO BID@0900,2100 02/23/20 02/23/20 History Omeprazole 20 mg PO DAILY@0600 02/23/20 02/23/20 History Potassium Chloride [Klor-Con 20 20 meq PO DAILY@0900 02/23/20 02/23/20 History Packets] Umeclidinium Fishers [Incruse 1 puff INHALATION RT-DAILY@0902/23/20 02/23/20 History Ellipta] Visine Tears 1 drop BOTH EYES DAILY PRN 02/23/20 02/23/20 History Allergies Allergy/AdvReac Type Severity Reaction Status Date / Time iodine Allergy Rash/Hives Verified 02/23/20 21:33 morphine AdvReac Hallucinati Verified 02/23/20 21:33 ons Physical Exam Vitals: Vital Signs Temp Pulse Pulse Resp BP BP Pulse Ox 02/24/20 11:26 97.7 F 74 122/68 91 L 02/24/20 11:16 97.6 F 78 16 129/74 90 L 02/24/20 07:15 97.8 F 76 16 129/67 90 L 02/24/20 05:31 18 02/24/20 03:49 98.1 F 70 18 109/62 92 L 02/24/20 00:33 98.2 F 66 16 125/73 94 L 02/24/20 00:00 18 02/23/20 23:20 98.7 F 67 18 111/72 100 02/23/20 22:50 67 22 118/63 100 02/23/20 22:40 69 118/63 95 02/23/20 22:30 66 118/63 95 02/23/20 22:20 69 118/63 93 L 02/23/20 22:10 69 118/63 92 L 02/23/20 22:00 70 22 152/90 95 02/23/20 21:50 152/90 02/23/20 21:40 70 152/90 94 L 02/23/20 21:30 72 152/90 95 02/23/20 21:20 75 152/90 93 L 02/23/20 21:10 73 152/90 98 02/23/20 21:05 84 02/23/20 21:00 74 137/78 100 02/23/20 20:50 71 137/78 100 02/23/20 20:47 71 02/23/20 20:40 68 137/78 02/23/20 20:30 68 137/78 02/23/20 20:20 69 137/78 99 02/23/20 20:10 137/78 96 02/23/20 20:00 141/78 95 02/23/20 19:50 68 22 141/78 99 02/23/20 19:40 141/78 95 02/23/20 19:30 69 22 141/78 99 02/23/20 19:20 140/77 99 02/23/20 19:10 140/77 99 02/23/20 19:06 98 02/23/20 19:00 98.2 F 61 20 140/77 97 Intake and Output 02/23/20 02/24/20 02/24/20 22:59 06:59 14:59 Intake Total 0 Balance 0 Intake: Blood Product 0 Rc As-1 Unit 0 [id number] Other: Voiding Method Indwelling Catheter Weight 71.668 kg General: Sitting up in bed, no acute distress HEENT: [PERRL. EOMI. No pharyngeal erythema or exudate.] Neck: [No adenopathy. Cardiac: [Heart regular in rate and rhythm. No S3. No S4. No clicks, rubs. No murmur.] Lungs: Bilateral bases diminished, with bibasilar crackles, scattered rhonchi, no wheezing Abdomen: [No mass. No organomegaly. Bowel sounds presnt and normoactive in all 4 quadrants.] Extremes: Right hip pain, sensation grossly intact, no clubbing, no cyanosis, positive pulses Skin: [Right ear lacerations/scabbed with sutures, bilateral forearms with skin tears/abrasions .left hand with first and second digit missing .No rash.] Neurologic: [No lateralizing deficits. CN II - XII grossly intact.] Lymphatic: [No adenopathy.] Results CBC & Chem 7: 02/24/20 06:40 02/24/20 06:40 Labs: Abnormal Lab Results - Last 24 Hours (Table) 02/23/20 02/23/20 02/23/20 Range/Units 20:00 20:00 20:00 RBC 2.87 L (4.30-5.90) m/uL Hgb 7.0 L (13.0-17.5) gm/dL Hct 23.2 L (39.0-53.0) % MCH 24.5 L (25.0-35.0) pg MCHC 30.2 L (31.0-37.0) g/dL RDW 16.9 H (11.5-15.5) % Neutrophils # (1.3-7.7) k/uL Lymphocytes # 0.5 L (1.0-4.8) k/uL INR 1.2 H (<1.2) BUN 76 H (9-20) mg/dL Creatinine 3.33 H (0.66-1.25) mg/dL Glucose 126 H (74-99) mg/dL POC Glucose (mg/dL) (75-99) mg/dL Calcium 8.3 L (8.4-10.2) mg/dL Phosphorus 5.5 H (2.5-4.5) mg/dL AST 116 H (17-59) U/L ALT 126 H (4-49) U/L Troponin I (0.000-0.034) ng/mL Total Protein 5.8 L (6.3-8.2) g/dL Albumin 3.1 L (3.5-5.0) g/dL Coronavirus (PCR) (Not Detectd) Crossmatch 02/23/20 02/23/20 02/24/20 Range/Units 20:00 22:15 06:40 RBC 2.82 L (4.30-5.90) m/uL Hgb 6.9 L* (13.0-17.5) gm/dL Hct 23.6 L (39.0-53.0) % MCH 24.4 L (25.0-35.0) pg MCHC 29.1 L (31.0-37.0) g/dL RDW 16.7 H (11.5-15.5) % Neutrophils # 8.8 H (1.3-7.7) k/uL Lymphocytes # 0.4 L (1.0-4.8) k/uL INR (<1.2) BUN (9-20) mg/dL Creatinine (0.66-1.25) mg/dL Glucose (74-99) mg/dL POC Glucose (mg/dL) (75-99) mg/dL Calcium (8.4-10.2) mg/dL Phosphorus (2.5-4.5) mg/dL AST (17-59) U/L ALT (4-49) U/L Troponin I 0.047 H* (0.000-0.034) ng/mL Total Protein (6.3-8.2) g/dL Albumin (3.5-5.0) g/dL Coronavirus (PCR) Detected A (Not Detectd) Crossmatch 02/24/20 02/24/20 02/24/20 Range/Units 06:40 07:10 08:29 RBC (4.30-5.90) m/uL Hgb (13.0-17.5) gm/dL Hct (39.0-53.0) % MCH (25.0-35.0) pg MCHC (31.0-37.0) g/dL RDW (11.5-15.5) % Neutrophils # (1.3-7.7) k/uL Lymphocytes # (1.0-4.8) k/uL INR (<1.2) BUN 76 H (9-20) mg/dL Creatinine 3.51 H (0.66-1.25) mg/dL Glucose 146 H (74-99) mg/dL POC Glucose (mg/dL) 202 H (75-99) mg/dL Calcium (8.4-10.2) mg/dL Phosphorus (2.5-4.5) mg/dL AST 83 H (17-59) U/L ALT 121 H (4-49) U/L Troponin I (0.000-0.034) ng/mL Total Protein 5.7 L (6.3-8.2) g/dL Albumin 3.2 L (3.5-5.0) g/dL Coronavirus (PCR) (Not Detectd) Crossmatch See Detail 02/24/20 02/24/20 Range/Units 08:29 11:34 RBC (4.30-5.90) m/uL Hgb (13.0-17.5) gm/dL Hct (39.0-53.0) % MCH (25.0-35.0) pg MCHC (31.0-37.0) g/dL RDW (11.5-15.5) % Neutrophils # (1.3-7.7) k/uL Lymphocytes # (1.0-4.8) k/uL INR (<1.2) BUN (9-20) mg/dL Creatinine (0.66-1.25) mg/dL Glucose (74-99) mg/dL POC Glucose (mg/dL) 238 H (75-99) mg/dL Calcium (8.4-10.2) mg/dL Phosphorus (2.5-4.5) mg/dL AST (17-59) U/L ALT (4-49) U/L Troponin I 0.054 H* (0.000-0.034) ng/mL Total Protein (6.3-8.2) g/dL Albumin (3.5-5.0) g/dL Coronavirus (PCR) (Not Detectd) Crossmatch Assessment and Plan Assessment: (1) acute nondisplaced right femoral neck fracture, status post fall (2) acute hypoxic respiratory failure secondary to acute on chronic CHF exacerbation, systolic dysfunction, NYHA class 2 (3) severe pulmonary hypertension (4)acute COVID- 19 infection (5) Acute on chronic renal failure Current Visit: No Status: Acute Code(s): N17.9 - ACUTE KIDNEY FAILURE, UNSPECIFIED SNOMED Code(s): 54439860 (6) Acute anemia, status post 1 unit packed RBCs (7) elevated troponin, cardiology following (8) Diabetes mellitus Current Visit: No Status: Acute Code(s): E11.9 - TYPE 2 DIABETES MELLITUS WITHOUT COMPLICATIONS SNOMED Code(s): 91158012 (9)Elevated LFTs , mild (10) Hypertension Current Visit: No Status: Acute Code(s): I10 - ESSENTIAL (PRIMARY) HYPERTENSION SNOMED Code(s): 39453083 (11) COPD, O2 dependent 2Lnc (12)Cognitive impairment, recent [facility] cognitive assessment [facility] reported 11 out of 30. Current Visit: Yes Status: Acute Code(s): R41.89 - OTH SYMPTOMS AND SIGNS W COGNITIVE FUNCTIONS AND AWARENESS SNOMED Code(s): 793276744 (13) prior nicotine dependence Plan: Continue on current medication regime ,monitoring and symptomatic treatment. One unit of packed RBCs with Lasix 20 IV push 1 post transfusion ordered .Nebulized bronchodilators ordered. Fluid restrictions. Diuretics as per nephrology. Home meds reviewed and resumed accordingly. Patient is scheduled for surgery tomorrow pending Cardiology, pulmonary clearance. Patient is moderate to high risk, given his current respiratory distress, fluid overload, renal failure, recommending diuresing with further reevaluation in a.m. for surgical clearance. Thank you Dr. Angel for the consult. The impression and plan of care has been dictated as directed. : I performed a history and examination of this patient, discussed the same with the dictator. I agree with the dictator's note ,documented as a scribe. Any additional findings or plans will be noted.
[2020-02-24] MEDS: HYDROmorphone 0.5 MG/0.5 ML SYRINGE IVP PRN ×2 (17:22→20:32)
[2020-02-24 20:14] LABS: Glucose,Whole Blood 178 mg/dL (75-99)
[2020-02-24] MEDS: METOPROLOL TARTRATE 50 MG TAB PO SCH (20:29)
[2020-02-24] MEDS: FUROSEMIDE 10 MG/ML 4 ML VIAL IV SCH (20:30)
[2020-02-24] MEDS: ATORVASTATIN 20 MG TAB PO SCH (20:30)
[2020-02-24] MEDS: INSULIN DETEMIR (LEVEMIR) 100 UNIT/ML SYR SQ SCH (20:31)
[2020-02-24] MEDS ORDERED: INSULIN DETEMIR (LEVEMIR) 100 UNIT/ML SYR SQ SCH (21:00)
[2020-02-25] MEDS: HYDROmorphone 0.5 MG/0.5 ML SYRINGE IVP PRN ×4 (00:17→15:21)
[2020-02-25] MEDS: hydrALAZINE HCL 25 MG TAB PO SCH ×3 (05:46→20:11)
[2020-02-25] MEDS ORDERED: HYDROmorphone 0.5 MG/0.5 ML SYRINGE IVP PRN (05:50)
[2020-02-25] MEDS ORDERED: ONDANSETRON 4 MG/2 ML VIAL IVP ONE (05:50)
[2020-02-25 06:49] LABS: Glucose,Whole Blood 119 mg/dL (75-99)
[2020-02-25] MEDS: PANTOPRAZOLE 40 MG TABLET PO SCH (07:15)
[2020-02-25] MEDS: INSULIN ASPART (NovoLOG) 100 UNIT/ML VIAL SQ SCH ×4 (07:15→20:53)
[2020-02-25] MEDS: LINAGLIPTIN 5 MG TABLET PO SCH (07:16)
[2020-02-25] MEDS: TAMSULOSIN 0.4 MG CAP.ER.24H PO SCH (07:16)
[2020-02-25] MEDS: ESCITALOPRAM 10 MG TAB PO SCH (07:16)
[2020-02-25] MEDS: buPROPion XL 150 MG TAB.ER.24H PO SCH (07:16)
[2020-02-25] MEDS: ISOSORBIDE MONONITRATE ER 30 MG TAB.ER.24H PO SCH (07:17)
[2020-02-25] MEDS: ALBUTEROL HFA INHALER INHALATION SCH ×4 (07:50→19:40)
[2020-02-25] MEDS: TIOTROPIUM 18 MCG/PUFF INHALER INHALATION SCH (07:52)
[2020-02-25 08:08] LABS: Calcium 8.6 mg/dL (8.4-10.2); Magnesium 2.4 mg/dL (1.6-2.3); Potassium 4.5 mmol/L (3.5-5.1)
[2020-02-25 08:12] LABS: Anisocytosis Slight; Basophils % (A) 0 %; Eosinophils # (A) 0.1 k/uL (0-0.7); Eosinophils % (A) 1 %; HCT 28.3 % (39.0-53.0); HGB 8.3 gm/dL (13.0-17.5); Hypochromasia Marked; Lymphocytes % (A) 8 %; MCHC 29.3 g/dL (31.0-37.0); MCV 85.2 fL (80.0-100.0); Mean Platelet Volume 10.1; Monocytes % (A) 8 %; Neutrophils # (A) 10.4 k/uL (1.3-7.7); Neutrophils % (A) 81 %; Platelet Count 192 k/uL (150-450); Poikilocytosis Moderate; RBC 3.32 m/uL (4.30-5.90); RDW 16.8 % (11.5-15.5); WBC 12.9 k/uL (3.8-10.6)
[2020-02-25] MEDS ORDERED: POTASSIUM CHLORIDE 20 MEQ PO SCH (09:00)
[2020-02-25] MEDS ORDERED: LISINOPRIL 10 MG TAB PO SCH (09:00)
[2020-02-25] MEDS: FUROSEMIDE 10 MG/ML 4 ML VIAL IV SCH (09:05)
--- NOTE | 2020-02-25 09:29 | XR ---
EXAMINATION TYPE: XR chest 1V DATE OF EXAM: 02/25/2020 COMPARISON: 02/23/2020 INDICATION: Heart failure short of breath TECHNIQUE: Single frontal view of the chest is obtained. FINDINGS: The heart size is largest. The pulmonary vasculature is prominent. Patchy infiltrates are present greater on the right. Small right pleural effusion is present. Finding s are improving from comparison. IMPRESSION: 1. Improving bilateral lung infiltrates remaining greater on the right. 2. Cardiomegaly. 3. Minimal right pleural effusion
--- NOTE | 2020-02-25 09:32 | P.PN ---
Subjective HISTORY OF PRESENTING ILLNESS This is a pleasant 74-year-old male past medical history significant for diastolic heart failure, COPDon home oxygen, diabetes mellitus, hypertension and dyslipidemia. He denies prior history of coronary artery disease and does not follow in the office with a grouter helper. We have been asked to see in consu ltation for preoperative evaluation. He is currently residing at [facility] and suffered a fall in the shower last night sustaining a nondisplaced right femoral neck fracture. He has been seen in evaluation by orthopedic surgery and is scheduled to undergo surgical repair tomorrow morning. He is seen and examined sitting up in bed in mild respiratory distress. He states he has been having ongoing shortness of breath since his previous admission in November. At that time he was treated for acute exacerbation of diastolic heart failure. Chest x-rays obtained on this admission revealed pleural effusion and pulmonary edema worsened compared to November chest x-rays. EKG reveals sinus mechanism with heart rate of 71. Laboratory data reviewed. Covid 19 positive, hemoglobin 6.9, platelets 174, sodium 138, potassium 4.2, creatinine 3.51 with a GFR 16, troponin 0.047 and 0.054 and NT proBNP 25,000. He has been initiated on IV lasix per nephrology and has PRBC infusing currently. He has a healy in place with bright red blood noted in the tubing and drainage bag. Most recent ec hocardiogram obtained 11/2019 reveals preserved LV systolic function with ejection fraction 50-55%, grade 2 diastolic dysfunction, mild aortic regurgitation, mild aortic stenosis with a mean gradient of 14 mmHg, moderate mitral regurgitation, moderate to severe tricuspid regurgitation and severe pulm onary hypertension with an RVSP of 67 mmHg. Current daily cardiac medications includeaspirin 81 mg daily, Imdur 30 mg daily, atorvastatin 20 mg daily, lisinopril 10 mg daily, Lasix 40 mg twice a day, Lopressor 50 mg twice a day and hydralazine 25 mg 3 times a day. 02/25/2020 Pt seen laying in bed sleeping. He just received a dose of IV dilaudid secondary to hip pain. Per the nurse he was quite dysnpneic this morning with significant cough and inability to clear his secretions. Maintained on IV lasix with only 600 cc of urine output. Urine continues to have bright red blood noted. Blood pressure 125/76 heart rate 63 afebrile and maintaining oxygen saturation on nasal cannula. Laboratory data reviewed, hgb 8.3 after transfusion of 1 unit of PRBC, sodium 139, potassium 4.5, creatinine to 3.85 and magnesium 2.4. PHYSICAL EXAMINATION CONSTITUTIONAL: Mild respiratory distress. HEENT: Head is normocephalic. Pupils are equal, round. Sclerae anicteric. Mucous membranes of the mouth are moist. Bilateral 1 cm JVD. No carotid bruit. CHEST EXAMINATION: Bibailar rales, faint expiratory wheezes. No rhonchi. No chest wall tenderness is noted on palpation or with deep breathing. HEART EXAMINATION: Regular rate and rhythm. S1, S2 heard. Systolic ejection murmur at the base and apex. No gallops or rub. EXTREMITIES: 2+ peripheral pulses, 1+ bilateral lower extremity pitting edema and no calf tenderness. ASSESSMENT Acute on chronic diastolic heart failure Acute on chronic kidney disease Right femoral neck fracture s/p fall in the shower COVID 19 Anemia COPD on home oxygen Diabetes mellitus Hypertension Dyslipidmeia Valvular heart disease Pulmonary hypertension PLAN Suggest possible undergoing dialysis prior to surgery. Repeat chest xray. Nurse Practitioner note has been reviewed, I agree with a documented findings and plan of care. Patient was seen and examined. Objective - Vital Signs Vital signs: Vital Signs Temp 97.7 F 02/25/20 07:00 Pulse 63 02/25/20 07:00 Resp 16 02/25/20 07:00 BP 125/76 02/25/20 07:00 Pulse Ox 95 02/25/20 07:00 Intake & Output 02/24/20 02/25/20 02/25/20 18:59 06:59 18:59 Intake Total 1270 Output Total 600 Balance 670 Intake: Oral 960 Blood Product 310 Rc As-1 Unit 310 [id number] Output: Urine 600 Uretheral (Healy) 600 Other: Voiding Method Indwelling Catheter - Labs CBC & Chem 7: 02/25/20 07:03 02/25/20 07:03 Labs: Abnormal Lab Results - Last 24 Hours (Table) 02/24/20 02/24/20 02/24/20 Range/Units 08:29 08:29 11:34 WBC (3.8-10.6) k/uL RBC (4.30-5.90) m/uL Hgb (13.0-17.5) gm/dL Hct (39.0-53.0) % MCHC (31.0-37.0) g/dL RDW (11.5-15.5) % Neutrophils # (1.3-7.7) k/uL BUN (9-20) mg/dL Creatinine (0.66-1.25) mg/dL POC Glucose (mg/dL) 238 H (75-99) mg/dL Magnesium (1.6-2.3) mg/dL Troponin I 0.054 H* (0.000-0.034) ng/mL Crossmatch See Detail 02/24/20 02/24/20 02/24/20 Range/Units 14:59 16:48 20:13 WBC (3.8-10.6) k/uL RBC (4.30-5.90) m/uL Hgb (13.0-17.5) gm/dL Hct (39.0-53.0) % MCHC (31.0-37.0) g/dL RDW (11.5-15.5) % Neutrophils # (1.3-7.7) k/uL BUN (9-20) mg/dL Creatinine (0.66-1.25) mg/dL POC Glucose (mg/dL) 222 H 178 H (75-99) mg/dL Magnesium (1.6-2.3) mg/dL Troponin I 0.055 H* (0.000-0.034) ng/mL Crossmatch 02/25/20 02/25/20 02/25/20 Range/Units 06:48 07:03 07:03 WBC 12.9 H (3.8-10.6) k/uL RBC 3.32 L (4.30-5.90) m/uL Hgb 8.3 L (13.0-17.5) gm/dL Hct 28.3 L (39.0-53.0) % MCHC 29.3 L (31.0-37.0) g/dL RDW 16.8 H (11.5-15.5) % Neutrophils # 10.4 H (1.3-7.7) k/uL BUN 84 H (9-20) mg/dL Creatinine 3.85 H (0.66-1.25) mg/dL POC Glucose (mg/dL) 119 H (75-99) mg/dL Magnesium 2.4 H (1.6-2.3) mg/dL Troponin I (0.000-0.034) ng/mL Crossmatch
--- NOTE | 2020-02-25 09:33 | P.PN ---
Subjective Patient is seen in follow-up for acute kidney injury on chronic kidney disease. Renal function continues to worsen. Oral intake has been fair. Edema is improved. He is maintained on IV Lasix. Urine output 600 mL overnight. Vital signs are stable. General: The patient appeared well nourished and normally developed. HEENT: Head exam is unremarkable. Neck is without jugular venous distension. LUNGS: Breath sounds decreased. HEART: Rate and Rhythm are regular. ABDOMEN: Soft, nontender. EXTREMITITES: 1+ edema. Objective - Vital Signs Vital signs: Vital Signs Temp 97.7 F 02/25/20 07:00 Pulse 63 02/25/20 07:00 Resp 16 02/25/20 07:00 BP 125/76 02/25/20 07:00 Pulse Ox 95 02/25/20 07:00 Intake & Output 02/24/20 02/25/20 02/25/20 18:59 06:59 18:59 Intake Total 1270 Output Total 600 Balance 670 Intake: Oral 960 Blood Product 310 Rc As-1 Unit 310 [id number] Output: Urine 600 Uretheral (Orellana) 600 Other: Voiding Method Indwelling Catheter - Labs CBC & Chem 7: 02/25/20 07:03 02/25/20 07:03 Labs: Abnormal Lab Results - Last 24 Hours (Table) 02/24/20 02/24/20 02/24/20 Range/Units 08:29 08:29 11:34 WBC (3.8-10.6) k/uL RBC (4.30-5.90) m/uL Hgb (13.0-17.5) gm/dL Hct (39.0-53.0) % MCHC (31.0-37.0) g/dL RDW (11.5-15.5) % Neutrophils # (1.3-7.7) k/uL BUN (9-20) mg/dL Creatinine (0.66-1.25) mg/dL POC Glucose (mg/dL) 238 H (75-99) mg/dL Magnesium (1.6-2.3) mg/dL Troponin I 0.054 H* (0.000-0.034) ng/mL Crossmatch See Detail 02/24/20 02/24/20 02/24/20 Range/Units 14:59 16:48 20:13 WBC (3.8-10.6) k/uL RBC (4.30-5.90) m/uL Hgb (13.0-17.5) gm/dL Hct (39.0-53.0) % MCHC (31.0-37.0) g/dL RDW (11.5-15.5) % Neutrophils # (1.3-7.7) k/uL BUN (9-20) mg/dL Creatinine (0.66-1.25) mg/dL POC Glucose (mg/dL) 222 H 178 H (75-99) mg/dL Magnesium (1.6-2.3) mg/dL Troponin I 0.055 H* (0.000-0.034) ng/mL Crossmatch 02/25/20 02/25/20 02/25/20 Range/Units 06:48 07:03 07:03 WBC 12.9 H (3.8-10.6) k/uL RBC 3.32 L (4.30-5.90) m/uL Hgb 8.3 L (13.0-17.5) gm/dL Hct 28.3 L (39.0-53.0) % MCHC 29.3 L (31.0-37.0) g/dL RDW 16.8 H (11.5-15.5) % Neutrophils # 10.4 H (1.3-7.7) k/uL BUN 84 H (9-20) mg/dL Creatinine 3.85 H (0.66-1.25) mg/dL POC Glucose (mg/dL) 119 H (75-99) mg/dL Magnesium 2.4 H (1.6-2.3) mg/dL Troponin I (0.000-0.034) ng/mL Crossmatch Assessment and Plan Plan: Assessment: 1. Acute kidney injury secondary to ATN secondary to cardiorenal syndrome and additional component of covid-19 infection and acute blood loss anemia. Creatinine was 3.33 on admission and is up to 3.85 today. UA benign. Right kidney small in size but no evidence of hydronephrosis. 2. Chronic kidney disease stage III secondary to nephrosclerosis with baseline creatinine in the range of 1.6-2. 3. Acute blood loss anemia scheduled for blood transfusion on February 15. 4. Status post fall with right femoral neck fracture. Scheduled for surgery tomorrow. 5. Covid 19 positive. 6. Insulin-dependent diabetes mellitus. 7. Volume overload. Better with diuresis. Chest x-ray from today reviewed. 8. Acute on chronic diastolic CHF with moderate mitral regurgitation, moderate to severe tricuspid regurgitation. 9. Severe pulmonary hypertension. Plan: Decrease Lasix to 40 mg IV once daily. Avoid nephrotoxins. Maintain Orellana. Continue to monitor renal function and urine output.
[2020-02-25] MEDS: METOPROLOL TARTRATE 50 MG TAB PO SCH ×2 (11:07→20:11)
[2020-02-25 11:36] LABS: Glucose,Whole Blood 96 mg/dL (75-99)
--- NOTE | 2020-02-25 12:00 | P.PN ---
Subjective Progress Note Date: 02/25/20 Principal diagnosis: Fall, nondisplaced right femoral neck fracture, acute on chronic hypoxic respiratory failure related to exacerbation of CHF This is a very pleasant 74-year-old gentleman who follows with Dr. Akhtar as his primary care provider. He is a history of diabetes mellitus, type II, hypertension, hyperlipidemia, anxiety, previous chronic tobacco dependence and chronic obstructive pulmonary disease, on home oxygen at 2 L. He had recently in November 2019 been admitted for an acute exacerbation of chronic congestive heart failure secondary to diastolic dysfunction. He was subsequent discharged to [facility] [place] where he has been staying for rehabilitation. Last evening he was brought to the emergency room after sustaining a fall in the shower. He had multiple abrasions on his skin. Laceration to the right ear requiring sutures,, trauma to the right chest and a nondisplaced right femoral neck fracture. Computed tomography scan of the brain and C-spine revealed no acute intracranial abnormalities. No cervical spine fractures. He had been seen and evaluated by orthopedic surgery and were considering repair of the right hip fracture. We have been asked to consult for preoperative clearance. He is seen today in consultation on the regular medical floor. He is currently awake and alert in no acute distress. He is maintaining O2 saturation in the low 90s on 4 L/m per nasal cannula. Chest x-ray showed evidence of congestive heart failure with pleural effusions and pulmonary edema which is worse compared to previous in November 2019. White count 10.0. Hemoglobin 6.9. Platelet count 174. Lymphocytes 0.4. INR 1.2. Sodium 138. Potassium 4.2. Bicarb 14. Creatinine 3.51. Glucose 146. AST 83. ALT 121. Troponin 0.047, 0.054. ProBNP 25,000. Coronavirus is detected. On 02/25/2020 patient seen in follow-up on a general medical floor, is lethargic on today's exam, but arousable, able to give simple few word answers, denies any acute distress, he is currently on 6 L of oxygen and the pulse ox of 92-95%, his been afebrile. Patient has received a dose of Lasix yesterday with 20 mg of IV Lasix, and again in the afternoon with 40 mg of Lasix, today's chest x-ray shows improving bilateral lung infiltrates remaining greater on the right. Renal profile is slightly worse today, with BUN of 84, and creatinine is 3.85, white blood cell count of 12.9, hemoglobin of 8.3, he did receive a unit of packed red blood cells yesterday for a hemoglobin of 6.9. Electrolytes are within normal limits. Lung sounds reveal diminished breath sounds at the bases, however patient still has significant lower extremity edema. Objective - Vital Signs Vital signs: Vital Signs Temp 97.4 F L 02/25/20 11:19 Pulse 65 02/25/20 11:19 Resp 15 02/25/20 11:19 BP 110/66 02/25/20 11:19 Pulse Ox 92 L 02/25/20 11:19 Intake & Output 02/24/20 02/25/20 02/25/20 18:59 06:59 18:59 Intake Total 1270 Output Total 600 Balance 670 Intake: Oral 960 Blood Product 310 Rc As-1 Unit 310 [id number] Output: Urine 600 Uretheral (Orellana) 600 Other: Voiding Method Indwelling Catheter - Exam GENERAL EXAM: Somnolent, 74-year-old white male, on 6 L of oxygen with a pulse ox of 92-95% comfortable in no apparent distress. HEAD: Normocephalic/atraumatic. EYES: Normal reaction of pupils, equal size. Conjunctiva pink, sclera white. NOSE: Clear with pink turbinates. THROAT: No erythema or exudates. NECK: No masses, no JVD, no thyroid enlargement, no adenopathy. CHEST: No chest wall deformity. Symmetrical expansion. LUNGS: Equal air entry with no crackles, wheeze, rhonchi or dullness. CVS: Regular rate and rhythm, normal S1 and S2, no gallops, no murmurs, no rubs ABDOMEN: Soft, nontender. No hepatosplenomegaly, normal bowel sounds, no gua rding or rigidity. EXTREMITIES: No clubbing, no cyanosis, 2+ pulses and upper and lower extremities. Tenderness in the right hip, with 1+ lower extremity edema. Missing first and second digits of the left hand MUSCULOSKELETAL: Muscle strength and tone normal. SPINE: No scoliosis or deformity SKIN: No rashes CENTRAL NERVOUS SYSTEM: Somnolent. But responsive No focal deficits, tone is normal in all 4 extremities. - Labs CBC & Chem 7: 02/25/20 07:03 02/25/20 07:03 Labs: Abnormal Lab Results - Last 24 Hours (Table) 02/24/20 02/24/20 02/24/20 Range/Units 08:29 14:59 16:48 WBC (3.8-10.6) k/uL RBC (4.30-5.90) m/uL Hgb (13.0-17.5) gm/dL Hct (39.0-53.0) % MCHC (31.0-37.0) g/dL RDW (11.5-15.5) % Neutrophils # (1.3-7.7) k/uL BUN (9-20) mg/dL Creatinine (0.66-1.25) mg/dL POC Glucose (mg/dL) 222 H (75-99) mg/dL Magnesium (1.6-2.3) mg/dL Troponin I 0.055 H* (0.000-0.034) ng/mL Crossmatch See Detail 02/24/20 02/25/20 02/25/20 Range/Units 20:13 06:48 07:03 WBC 12.9 H (3.8-10.6) k/uL RBC 3.32 L (4.30-5.90) m/uL Hgb 8.3 L (13.0-17.5) gm/dL Hct 28.3 L (39.0-53.0) % MCHC 29.3 L (31.0-37.0) g/dL RDW 16.8 H (11.5-15.5) % Neutrophils # 10.4 H (1.3-7.7) k/uL BUN (9-20) mg/dL Creatinine (0.66-1.25) mg/dL POC Glucose (mg/dL) 178 H 119 H (75-99) mg/dL Magnesium (1.6-2.3) mg/dL Troponin I (0.000-0.034) ng/mL Crossmatch 02/25/20 Range/Units 07:03 WBC (3.8-10.6) k/uL RBC (4.30-5.90) m/uL Hgb (13.0-17.5) gm/dL Hct (39.0-53.0) % MCHC (31.0-37.0) g/dL RDW (11.5-15.5) % Neutrophils # (1.3-7.7) k/uL BUN 84 H (9-20) mg/dL Creatinine 3.85 H (0.66-1.25) mg/dL POC Glucose (mg/dL) (75-99) mg/dL Magnesium 2.4 H (1.6-2.3) mg/dL Troponin I (0.000-0.034) ng/mL Crossmatch Assessment and Plan Plan: Assessment: #1. Acute nondisplaced right femoral neck fracture status post fall. Right- sided chest wall pain, skin abrasions and laceration to the right ear requiring sutures #2. Acute hypoxic respiratory failure, multifactorial, related to acute COVID 19 infection, and acute exacerbation of diastolic congestive heart failure #3. Acute exacerbation of diastolic congestive heart failure with the documented systolic function of 50-55% on the echocardiogram from 12/25/2019 #4. Acute kidney injury #5. Chronic kidney disease stage IIIB #6. Acute anemia with a hemoglobin of 6.9, patient has been transfused with 1 unit of packed red blood cells #7. Hypertension #8. Chronic hypercapnic and hypoxemic respiratory failure related to COPD #9. Diabetes mellitus type 2 #10. History of depression #11. 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 Valvular heart disease, moderate mitral regurgitation, moderate to severe tricuspid regurgitation, and severe pulmonary hypertension with a right-sided pressures of 67.7 mmHg #13. Troponin leak, possibly related to acute exacerbation of CHF, and acute on chronic renal failure Plan: Continue diuretics, today's chest x-ray shows improvement in appearance of bilateral lung infiltrates. Continue monitoring daily electrolytes and renal profile, continue with Lasix, he still has significant lower extremity edema, but no worsening dyspnea. From pulmonary perspective patient is cleared for surgery, patient is considered moderate to high risk for surgery, patient may end up on vent support in the postoperative period. Mima to follow his clinical course I performed a history & physical examination of the patient and discussed their management with my nurse practitioner, Valorie Gilbert. I reviewed the nurse practitioner's note and agree with the documented findings and plan of care. Lung sounds are positive for diminished breath sounds. The findings and the impression was discussed with the patient. I attest to the documentation by the nurse practitioner. Time with Patient: Less than 30
--- NOTE | 2020-02-25 15:29 | P.PN ---
Subjective Progress Note Date: 02/25/20 74-year-old male resident currently at [facility] subacute re[facility] ,known to the practice with history of severe pulmonary hypertension, hypertension hyperlipidemia diabetes mellitus type 2 former smoker anxiety COPD stage III chronic renal insufficiency, recent pneumonia, early dementia ([place] cog nitive scoring at [facility] 11 out of 30), admitted with right hip fracture status post fall in the shower, sustaining multiple skin tears/abrasions to right ear, right chest, bilateral forearms, riight hip. Right ear required sutures. Head and C-spine reported no spine fracture spine fracture, no acute intracranial abnormality-unchanged from prior exam. Pelvis x-ray reported nondisplaced right femoral neck fracture. EKG reportedly accelerated junctional rhythm with nonspecific ST-T wave abnormalities. Troponins 0.047, 0.054. BNP 25,000 Tested positive for coronavirus. Chest x-ray reporting CHF with pleural effusions, pulmonary edema worse than last exam .Maintaining O2 sats in the low 90s on 4 L nasal cannula. Afebrile, WBC 10, hemoglobin 6.9, platelets 174. sodium 138 potassium 4.2 bicarb 14, creatinine 3.51 (baseline around 1.9).glucose 146, mildly elevated LFTs .Evaluated by orthopedic surgery, discussing surgical repair pending pulmonary, cardiology, medical clearance. 02/25/2020 Diuresing on Lasix IV push, with 24-hour I&O reflecting overnigiht urine output of 600 MLS. Renal function worsening, creatinine up to 3.85 . O2 requirement increased up to 6 L nasal cannula, maintaining O2 sats in the 90s. Reports nonproductive cough. Chest x-ray reporting improving bilateral infiltrates greater on right . Decreasing edema. complaints of hip pain, receiving Dilaudid. Hemoglobin 8.3 status post 1 unit packed RBCs. Orellana with hematuria. Afebrile, WBC increased to 12.9. Objective - Vital Signs Vital signs: Vital Signs Temp 97.4 F L 02/25/20 11:19 Pulse 65 02/25/20 11:19 Resp 15 02/25/20 11:19 BP 110/66 02/25/20 11:19 Pulse Ox 95 02/25/20 11:19 Intake & Output 02/24/20 02/25/20 02/25/20 18:59 06:59 18:59 Intake Total 1270 Output Total 600 Balance 670 Intake: Oral 960 Blood Product 310 Rc As-1 Unit 310 [id number] Output: Urine 600 Uretheral (Orellana) 600 Other: Voiding Method Indwelling Catheter - Exam General: Sitting up in bed, no acute distress HEENT: [PERRL. EOMI. No pharyngeal erythema or exudate.] Neck: [No adenopathy. Mild JVD Cardiac: [Heart regular in rate and rhythm. No S3. No S4. No clicks, rubs. No murmur.] Lungs: Bilateral bases diminished, with bibasilar crackles, fine expiratory wheezing Abdomen: [No mass. No organomegaly. Bowel sounds presnt and normoactive in all 4 quadrants.] : Orellana with hematuria Extremes: Right hip pain, sensation grossly intact, decreasing edema bilateral lower extremities, no clubbing, no cyanosis, positive pulses Skin: [Right ear lacerations/scabbed with sutures, bilateral forearms with skin tears/abrasions .left hand with first and second digit missing .No rash.] Neurologic: [No lateralizing deficits. CN II - XII grossly intact.] Lymphatic: [No adenopathy.] - Labs CBC & Chem 7: 02/25/20 07:03 02/25/20 07:03 Labs: Abnormal Lab Results - Last 24 Hours (Table) 02/24/20 02/24/20 02/24/20 Range/Units 08:29 11:34 14:59 WBC (3.8-10.6) k/uL RBC (4.30-5.90) m/uL Hgb (13.0-17.5) gm/dL Hct (39.0-53.0) % MCHC (31.0-37.0) g/dL RDW (11.5-15.5) % Neutrophils # (1.3-7.7) k/uL BUN (9-20) mg/dL Creatinine (0.66-1.25) mg/dL POC Glucose (mg/dL) 238 H (75-99) mg/dL Magnesium (1.6-2.3) mg/dL Troponin I 0.055 H* (0.000-0.034) ng/mL Crossmatch See Detail 02/24/20 02/24/20 02/25/20 Range/Units 16:48 20:13 06:48 WBC (3.8-10.6) k/uL RBC (4.30-5.90) m/uL Hgb (13.0-17.5) gm/dL Hct (39.0-53.0) % MCHC (31.0-37.0) g/dL RDW (11.5-15.5) % Neutrophils # (1.3-7.7) k/uL BUN (9-20) mg/dL Creatinine (0.66-1.25) mg/dL POC Glucose (mg/dL) 222 H 178 H 119 H (75-99) mg/dL Magnesium (1.6-2.3) mg/dL Troponin I (0.000-0.034) ng/mL Crossmatch 02/25/20 02/25/20 Range/Units 07:03 07:03 WBC 12.9 H (3.8-10.6) k/uL RBC 3.32 L (4.30-5.90) m/uL Hgb 8.3 L (13.0-17.5) gm/dL Hct 28.3 L (39.0-53.0) % MCHC 29.3 L (31.0-37.0) g/dL RDW 16.8 H (11.5-15.5) % Neutrophils # 10.4 H (1.3-7.7) k/uL BUN 84 H (9-20) mg/dL Creatinine 3.85 H (0.66-1.25) mg/dL POC Glucose (mg/dL) (75-99) mg/dL Magnesium 2.4 H (1.6-2.3) mg/dL Troponin I (0.000-0.034) ng/mL Crossmatch Assessment and Plan Assessment: (1) acute nondisplaced right femoral neck fracture, status post fall (2) acute hypoxic respiratory failure secondary to acute on chronic CHF exacerbation, systolic dysfunction, NYHA class 2 (3) severe pulmonary hypertension (4)acute COVID- 19 infection , possible acute COVID-19 Pneumonia. (5) Acute on chronic renal failure Current Visit: No Status: Acute Code(s): N17.9 - ACUTE KIDNEY FAILURE, UNSPECIFIED SNOMED Code(s): 29523013 (6) Acute anemia, status post 1 unit packed RBCs (7) elevated troponin, cardiology following (8) Diabetes mellitus Current Visit: No Status: Acute Code(s): E11.9 - TYPE 2 DIABETES MELLITUS WITHOUT COMPLICATIONS SNOMED Code(s): 57205748 (9)Elevated LFTs , mild (10) Hypertension Current Visit: No Status: Acute Code(s): I10 - ESSENTIAL (PRIMARY) HYPERTENSION SNOMED Code(s): 16014821 (11) COPD, O2 dependent 2Lnc (12)Cognitive impairment, recent [facility] cognitive assessment [facility] reported 11 out of 30. Current Visit: Yes Status: Acute Code(s): R41.89 - OTH SYMPTOMS AND SIGNS W COGNITIVE FUNCTIONS AND AWARENESS SNOMED Code(s): 162905743 (13) prior nicotine dependence Plan: Continue on current medication regime ,monitoring and symptomatic treatment. Aggressive pulmonary toileting with Nebulized bronchodilators. Fluid restrictions. Diuretics decreased as per nephrology. Respiratory status worsened today, reevaluate tomorrow regarding surgical clearance. The impression and plan of care has been dictated as directed. : I performed a history and examination of this patient, discussed the same with the dictator. I agree with the dictator's note ,documented as a scribe. Any additional findings or plans will be noted.
[2020-02-25 16:23] LABS: Glucose,Whole Blood 100 mg/dL (75-99)
[2020-02-25] MEDS ORDERED: ENOXAPARIN 30 MG/0.3 ML SYRINGE SQ SCH (17:00)
[2020-02-25] MEDS: LIDOCAINE 5% PATCH TOPICAL SCH (17:41)
[2020-02-25] MEDS: HYDROcodone/APAP 5-325MG 1 EACH TAB PO PRN (20:11)
[2020-02-25] MEDS: ATORVASTATIN 20 MG TAB PO SCH (20:12)
[2020-02-25 20:49] LABS: Glucose,Whole Blood 106 mg/dL (75-99)
[2020-02-25] MEDS: INSULIN DETEMIR (LEVEMIR) 100 UNIT/ML SYR SQ SCH (20:53)
--- NOTE | 2020-02-25 22:01 | P.PN ---
Subjective Progress Note Date: 02/25/20 Chart and interval events reviewed. Discussed with RN. The patients primary area of pain is along his right ribs, still requiring regular IV narcotics. He reports minimal at the hip. He denies any specific issues or concerns. Objective - Vital Signs Vital signs: Vital Signs Temp 97.5 F L 02/25/20 19:13 Pulse 67 02/25/20 19:13 Resp 21 02/25/20 19:13 BP 137/73 02/25/20 19:13 Pulse Ox 94 L 02/25/20 19:13 Intake & Output 02/25/20 02/25/20 02/26/20 06:59 18:59 06:59 Intake Total 685 Output Total 525 Balance 160 Weight 72 kg Intake: Oral 685 Output: Urine 525 Other: Voiding Method Indwelling Catheter Indwelling Catheter Indwelling Catheter - Exam The patient is somewhat somnolent but arouses easily. Verbal responses are rather brief but increased work of breathing and conversational dyspnea is noted. Persistent bilateral lower extremity pitting edema. Tenderness to palpation along the right lateral chest wall. He is able to perform limited active internal and external rotation of the hip and denies pain with this maneuver. - Labs CBC & Chem 7: 02/25/20 07:03 02/25/20 07:03 Labs: Abnormal Lab Results - Last 24 Hours (Table) 02/25/20 02/25/20 02/25/20 Range/Units 06:48 07:03 07:03 WBC 12.9 H (3.8-10.6) k/uL RBC 3.32 L (4.30-5.90) m/uL Hgb 8.3 L (13.0-17.5) gm/dL Hct 28.3 L (39.0-53.0) % MCHC 29.3 L (31.0-37.0) g/dL RDW 16.8 H (11.5-15.5) % Neutrophils # 10.4 H (1.3-7.7) k/uL BUN 84 H (9-20) mg/dL Creatinine 3.85 H (0.66-1.25) mg/dL POC Glucose (mg/dL) 119 H (75-99) mg/dL Magnesium 2.4 H (1.6-2.3) mg/dL 02/25/20 02/25/20 Range/Units 16:22 20:32 WBC (3.8-10.6) k/uL RBC (4.30-5.90) m/uL Hgb (13.0-17.5) gm/dL Hct (39.0-53.0) % MCHC (31.0-37.0) g/dL RDW (11.5-15.5) % Neutrophils # (1.3-7.7) k/uL BUN (9-20) mg/dL Creatinine (0.66-1.25) mg/dL POC Glucose (mg/dL) 100 H 106 H (75-99) mg/dL Magnesium (1.6-2.3) mg/dL Assessment and Plan Assessment: Nondisplaced right transcervical femoral neck fracture Acute on chronic diastolic heart failure Acute and chronic kidney disease. COVID-19 + Anemia COPD Diabetes mellitus Plan: I reviewed the clinical findings and treatment plan with the patient. Case was discussed with nephrology. Tentatively plan for OR tomorrow, pending reevaluation of the patients renal function. Given the patients comorbidities and pulmonary status, the plan will be to perf orm the procedure with spinal anesthetic and limited sedation as needed. SCDs for DVT prophylaxis. We will begin trial of a Lidoderm patch for the rib pain with hydrocodone as backup (IV for breakthrough only). NPO after midnight.
[2020-02-26] MEDS: hydrALAZINE HCL 25 MG TAB PO SCH ×3 (05:53→20:30)
[2020-02-26 06:56] LABS: Glucose,Whole Blood 65 mg/dL (75-99)
[2020-02-26 07:38] LABS: Glucose,Whole Blood 94 mg/dL (75-99)
[2020-02-26] MEDS: METOPROLOL TARTRATE 50 MG TAB PO SCH ×2 (07:39→20:30)
[2020-02-26] MEDS: LACTATED RINGERS 1,000 ML IV SCH ×2 (07:40→19:42)
[2020-02-26 08:55] LABS: Albumin 2.8 g/dL (3.5-5.0); Calcium 8.3 mg/dL (8.4-10.2); Magnesium 2.4 mg/dL (1.6-2.3); Potassium 3.8 mmol/L (3.5-5.1); Total Bilirubin 0.6 mg/dL (0.2-1.3); Total Protein 5.5 g/dL (6.3-8.2)
[2020-02-26] MEDS: buPROPion XL 150 MG TAB.ER.24H PO SCH (08:58)
[2020-02-26] MEDS: ESCITALOPRAM 10 MG TAB PO SCH (08:58)
[2020-02-26] MEDS: INSULIN ASPART (NovoLOG) 100 UNIT/ML VIAL SQ SCH ×4 (08:58→20:35)
[2020-02-26] MEDS: PANTOPRAZOLE 40 MG TABLET PO SCH (08:58)
[2020-02-26] MEDS: TAMSULOSIN 0.4 MG CAP.ER.24H PO SCH (08:59)
[2020-02-26] MEDS: LINAGLIPTIN 5 MG TABLET PO SCH (08:59)
[2020-02-26] MEDS: ISOSORBIDE MONONITRATE ER 30 MG TAB.ER.24H PO SCH (08:59)
[2020-02-26] MEDS: ALBUTEROL HFA INHALER INHALATION SCH ×4 (08:59→19:34)
[2020-02-26] MEDS: TIOTROPIUM 18 MCG/PUFF INHALER INHALATION SCH (09:00)
[2020-02-26] MEDS ORDERED: FUROSEMIDE 10 MG/ML 4 ML VIAL IV SCH ×2 (09:00→21:00)
[2020-02-26] MEDS: LIDOCAINE 5% PATCH TOPICAL SCH (09:00)
--- NOTE | 2020-02-26 09:07 | XR ---
EXAMINATION TYPE: XR chest 1V DATE OF EXAM: 02/26/2020 CLINICAL HISTORY: Wheezing progress study. History of hip fracture. TECHNIQUE: Single AP portable upright view of the chest is obtained. COMPARISON: Chest x-ray from one day earlier and older studies. FINDINGS: Persistent cardiomegaly with atherosclerotic change aortic knob. Background chronic parenc hymal changes with mild interstitial prominence and suspected small bilateral pleural effusions. More focal right midlung opacity remains present. Osseous structures are demineralized. IMPRESSION: Correlate for developing CHF exacerbation as there is cardiomegaly with small right great er than left pleural effusions and increasing interstitial edema felt present. Right mid lung and bib asilar acute infiltrate and/or atelectasis again seen.
--- NOTE | 2020-02-26 09:21 | P.PN ---
Subjective Patient is seen in follow-up for acute kidney injury on chronic kidney disease. Renal function is stable. Oral intake has been fair. Edema is improved. He is maintained on IV Lasix. Nonoliguric. Vital signs are stable. General: The patient appeared well nourished and normally developed. HEENT: Head exam is unremarkable. Neck is without jugular venous distension. LUNGS: Breath sounds decreased. HEART: Rate and Rhythm are regular. ABDOMEN: Soft, nontender. EXTREMITITES: 1+ edema. Objective - Vital Signs Vital signs: Vital Signs Temp 97.8 F 02/26/20 07:00 Pulse 58 L 02/26/20 07:00 Resp 18 02/26/20 07:00 BP 126/66 02/26/20 07:00 Pulse Ox 99 02/26/20 07:00 Intake & Output 02/25/20 02/26/20 02/26/20 18:59 06:59 18:59 Intake Total 685 Output Total 525 325 Balance 160 -325 Weight 72 kg 74 kg Intake: Oral 685 Output: Urine 525 325 Other: Voiding Method Indwelling Catheter Indwelling Catheter - Labs CBC & Chem 7: 02/25/20 07:03 02/26/20 07:40 Labs: Abnormal Lab Results - Last 24 Hours (Table) 02/25/20 02/25/20 02/26/20 Range/Units 16:22 20:32 06:54 BUN (9-20) mg/dL Creatinine (0.66-1.25) mg/dL Glucose (74-99) mg/dL POC Glucose (mg/dL) 100 H 106 H 65 L (75-99) mg/dL Calcium (8.4-10.2) mg/dL Magnesium (1.6-2.3) mg/dL ALT (4-49) U/L Total Protein (6.3-8.2) g/dL Albumin (3.5-5.0) g/dL 02/26/20 Range/Units 07:40 BUN 89 H (9-20) mg/dL Creatinine 3.86 H (0.66-1.25) mg/dL Glucose 71 L (74-99) mg/dL POC Glucose (mg/dL) (75-99) mg/dL Calcium 8.3 L (8.4-10.2) mg/dL Magnesium 2.4 H (1.6-2.3) mg/dL ALT 129 H (4-49) U/L Total Protein 5.5 L (6.3-8.2) g/dL Albumin 2.8 L (3.5-5.0) g/dL Assessment and Plan Plan: Assessment: 1. Acute kidney injury secondary to ATN secondary to cardiorenal syndrome and additional component of covid-19 infection and acute blood loss anemia. Creatinine was 3.33 on admission and is stable at 3.86 today. UA benign. Right kidney small in size but no evidence of hydronephrosis. 2. Chronic kidney disease stage III secondary to nephrosclerosis with baseline creatinine in the range of 1.6-2. 3. Acute blood loss anemia scheduled for blood transfusion on February 15. 4. Status post fall with right femoral neck fracture. Scheduled for surgery tomorrow. 5. Covid 19 positive. 6. Insulin-dependent diabetes mellitus. 7. Volume overload. Better with diuresis. Chest x-ray from today reviewed. 8. Acute on chronic diastolic CHF with moderate mitral regurgitation, moderate to severe tricuspid regurgitation. 9. Severe pulmonary hypertension. Plan: Maintain Lasix 40 mg IV once daily. Avoid nephrotoxins. Maintain Orellana. Continue to monitor renal function and urine output.
--- NOTE | 2020-02-26 10:46 | P.PN ---
Subjective HISTORY OF PRESENTING ILLNESS This is a pleasant 74-year-old male past medical history significant for diastolic heart failure, COPDon home oxygen, diabetes mellitus, hypertension and dyslipidemia. He denies prior history of coronary artery disease and does not follow in the office with a oil fire specialist. He is seen and examined sitting up in bed in no acute distress. His is still requiring oxygen at 6 liters nasal cannula however his breathing appears more stable with conversation. He complains of abdominal pain, shortness of breath and constipation. He denies chest pain, palpitations or dizziness. Repeat chest xray this morning reveals CHF exacerbation, cardiomegaly, right greater than left pleural effusions, incrasing interstitial edema and right mid lung infiltrate persisting. Laboratory data reviewed, sodium 137, potassium 3.8, creatinine 3.86, magnesium 2.4. Blood pressure 126/66 heart rate 58 afebrile and maintaining oxygen saturation on nasal cannula. Currently maintained on lasix IV daily, atorvastatin 20 mg daily, hydralazine 25 mg TID, imdur 30 mg daily and lopressor 50 mg BID. PHYSICAL EXAMINATION CONSTITUTIONAL: Mild respiratory distress. HEENT: Head is normocephalic. Pupils are equal, round. Sclerae anicteric. Mucous membranes of the mouth are moist. Bilateral 1 cm JVD. No carotid bruit. CHEST EXAMINATION: Bibasilar rales, no wheezes or rhonchi. No chest wall tenderness is noted on palpation or with deep breathing. HEART EXAMINATION: Regular rate and rhythm. S1, S2 heard. Systolic ejection murmur at the base and apex. No gallops or rub. EXTREMITIES: 2+ peripheral pulses, 1+ bilateral lower extremity pitting edema and no calf tenderness. ASSESSMENT Acute on chronic diastolic heart failure Acute on chronic kidney disease Right femoral neck fracture s/p fall in the shower COVID 19 Anemia COPD on home oxygen Diabetes mellitus Hypertension Dyslipidmeia Valvular heart disease Pulmonary hypertension Abdominal pain and constipation PLAN Increase lasix to BID. Clinically he looks stable however has worsening renal function and ongoing fluid overload on xray. He has normal LV function with persistent renal and cardiac failure. Mild troponin elevation not indicative of an acute coronary event. He is high risk to undergo surgical intervention, however if cleared by other consultants he can proceed with surgery this afternoon with guarded prognosis. Nurse Practitioner note has been reviewed, I agree with a documented findings and plan of care. Patient was seen and examined. Objective - Vital Signs Vital signs: Vital Signs Temp 97.8 F 02/26/20 07:00 Pulse 58 L 02/26/20 07:00 Resp 18 02/26/20 08:00 BP 126/66 02/26/20 07:00 Pulse Ox 99 02/26/20 07:00 Intake & Output 02/25/20 02/26/20 02/26/20 18:59 06:59 18:59 Intake Total 685 Output Total 525 325 Balance 160 -325 Weight 72 kg 74 kg Intake: Oral 685 Output: Urine 525 325 Other: Voiding Method Indwelling Catheter Indwelling Catheter Indwelling Catheter - Labs CBC & Chem 7: 02/25/20 07:03 02/26/20 07:40 Labs: Abnormal Lab Results - Last 24 Hours (Table) 02/25/20 02/25/20 02/26/20 Range/Units 16:22 20:32 06:54 BUN (9-20) mg/dL Creatinine (0.66-1.25) mg/dL Glucose (74-99) mg/dL POC Glucose (mg/dL) 100 H 106 H 65 L (75-99) mg/dL Calcium (8.4-10.2) mg/dL Magnesium (1.6-2.3) mg/dL ALT (4-49) U/L Total Protein (6.3-8.2) g/dL Albumin (3.5-5.0) g/dL 02/26/20 Range/Units 07:40 BUN 89 H (9-20) mg/dL Creatinine 3.86 H (0.66-1.25) mg/dL Glucose 71 L (74-99) mg/dL POC Glucose (mg/dL) (75-99) mg/dL Calcium 8.3 L (8.4-10.2) mg/dL Magnesium 2.4 H (1.6-2.3) mg/dL ALT 129 H (4-49) U/L Total Protein 5.5 L (6.3-8.2) g/dL Albumin 2.8 L (3.5-5.0) g/dL
[2020-02-26] MEDS ORDERED: BISACODYL 10 MG SUPP RECTAL STA (11:21)
--- NOTE | 2020-02-26 11:31 | P.PN ---
Subjective Progress Note Date: 02/26/20 Principal diagnosis: Fall, nondisplaced right femoral neck fracture, acute on chronic hypoxic respiratory failure related to exacerbation of CHF This is a very pleasant 74-year-old gentleman who follows with Dr. Akhtar as his primary care provider. He is a history of diabetes mellitus, type II, hypertension, hyperlipidemia, anxiety, previous chronic tobacco dependence and chronic obstructive pulmonary disease, on home oxygen at 2 L. He had recently in November 2019 been admitted for an acute exacerbation of chronic congestive heart failure secondary to diastolic dysfunction. He was subsequent discharged to [facility] on the abbasi where he has been staying for rehabilitation. Last evening he was brought to the emergency room after sustaining a fall in the shower. He had multiple abrasions on his skin. Laceration to the right ear requiring sutures,, trauma to the right chest and a nondisplaced right femoral neck fracture. Computed tomography scan of the brain and C-spine revealed no acute intracranial abnormalities. No cervical spine fractures. He had been seen and evaluated by orthopedic surgery and were considering repair of the right hip fracture. We have been asked to consult for preoperative clearance. He is seen today in consultation on the regular medical floor. He is currently awake and alert in no acute distress. He is maintaining O2 saturation in the low 90s on 4 L/m per nasal cannula. Chest x-ray showed evidence of congestive heart failure with pleural effusions and pulmonary edema which is worse compared to previous in November 2019. White count 10.0. Hemoglobin 6.9. Platelet count 174. Lymphocytes 0.4. INR 1.2. Sodium 138. Potassium 4.2. Bicarb 14. Creatinine 3.51. Glucose 146. AST 83. ALT 121. Troponin 0.047, 0.054. ProBNP 25,000. Coronavirus is detected. On 02/25/2020 patient seen in follow-up on a general medical floor, is lethargic on today's exam, but arousable, able to give simple few word answers, denies any acute distress, he is currently on 6 L of oxygen and the pulse ox of 92-95%, his been afebrile. Patient has received a dose of Lasix yesterday with 20 mg of IV Lasix, and again in the afternoon with 40 mg of Lasix, today's chest x-ray shows improving bilateral lung infiltrates remaining greater on the right. Renal profile is slightly worse today, with BUN of 84, and creatinine is 3.85, white blood cell count of 12.9, hemoglobin of 8.3, he did receive a unit of packed red blood cells yesterday for a hemoglobin of 6.9. Electrolytes are within normal limits. Lung sounds reveal diminished breath sounds at the bases, however patient still has significant lower extremity edema. On 02/26/2020 patient seen in follow-up on general medical floor, he states he is not feeling as good today, feels more short of breath. He is awake, answering questions appropriately, he is currently on 6 L of oxygen with a pulse ox of 90-99%, hemodynamically stable, does not appear to be in any acute distress, is resting in bed. His been diuresed, still has significant lower extremity edema, however his mucous membranes are dry, patient is thirsty, his renal profile today is relatively stable, B1 is 89, and creatinine is 3.86 electrolytes are within normal limits. No complaints of chest pain, his weight is up by 2 kg in the last 24 hours, he is in positive balance, nephrology is following, and contact IV Lasix to once daily. Today's chest x-ray shows developing CHF exacerbation with a small right greater than left pleural effusions and increasing interstitial edema. We'll keep same dose of IV Lasix, continue monitoring patient's level of dyspnea, and FiO2 requirement. Objective - Vital Signs Vital signs: Vital Signs Temp 97.8 F 02/26/20 07:00 Pulse 58 L 02/26/20 07:00 Resp 18 02/26/20 08:00 BP 126/66 02/26/20 07:00 Pulse Ox 99 02/26/20 07:00 Intake & Output 02/25/20 02/26/20 02/26/20 18:59 06:59 18:59 Intake Total 685 Output Total 525 325 Balance 160 -325 Weight 72 kg 74 kg Intake: Oral 685 Output: Urine 525 325 Other: Voiding Method Indwelling Catheter Indwelling Catheter Indwelling Catheter - Exam GENERAL EXAM: Somnolent, 74-year-old white male, on 6 L of oxygen with a pulse ox of 99% comfortable in no apparent distress. HEAD: Normocephalic/atraumatic. EYES: Normal reaction of pupils, equal size. Conjunctiva pink, sclera white. NOSE: Clear with pink turbinates. THROAT: No erythema or exudates. NECK: No masses, no JVD, no thyroid enlargement, no adenopathy. CHEST: No chest wall deformity. Symmetrical expansion. LUNGS: Equal air entry with no crackles, wheeze, rhonchi or dullness. CVS: Regular rate and rhythm, normal S1 and S2, no gallops, no murmurs, no rubs ABDOMEN: Soft, nontender. No hepatosplenomegaly, normal bowel sounds, no guarding or rigidity. EXTREMITIES: No clubbing, no cyanosis, 2+ pulses and upper and lower extremities. Tenderness in the right hip, with 1+ lower extremity edema. Missing first and second digits of the left hand MUSCULOSKELETAL: Muscle strength and tone normal. SPINE: No scoliosis or deformity SKIN: No rashes CENTRAL NERVOUS SYSTEM: Somnolent. But responsive No focal deficits, tone is normal in all 4 extremities. - Labs CBC & Chem 7: 02/25/20 07:03 02/26/20 07:40 Labs: Abnormal Lab Results - Last 24 Hours (Table) 02/25/20 02/25/20 02/26/20 Range/Units 16:22 20:32 06:54 BUN (9-20) mg/dL Creatinine (0.66-1.25) mg/dL Glucose (74-99) mg/dL POC Glucose (mg/dL) 100 H 106 H 65 L (75-99) mg/dL Calcium (8.4-10.2) mg/dL Magnesium (1.6-2.3) mg/dL ALT (4-49) U/L Total Protein (6.3-8.2) g/dL Albumin (3.5-5.0) g/dL 02/26/20 Range/Units 07:40 BUN 89 H (9-20) mg/dL Creatinine 3.86 H (0.66-1.25) mg/dL Glucose 71 L (74-99) mg/dL POC Glucose (mg/dL) (75-99) mg/dL Calcium 8.3 L (8.4-10.2) mg/dL Magnesium 2.4 H (1.6-2.3) mg/dL ALT 129 H (4-49) U/L Total Protein 5.5 L (6.3-8.2) g/dL Albumin 2.8 L (3.5-5.0) g/dL Assessment and Plan Plan: Assessment: #1. Acute nondisplaced right femoral neck fracture status post fall. Right- sided chest wall pain, skin abrasions and laceration to the right ear requiring sutures #2. Acute hypoxic respiratory failure, multifactorial, related to acute COVID 19 infection, and acute exacerbation of diastolic congestive heart failure #3. Acute exacerbation of diastolic congestive heart failure with the documented systolic function of 50-55% on the echocardiogram from 12/25/2019 #4. Acute kidney injury #5. Chronic kidney disease stage IIIB #6. Acute anemia with a hemoglobin of 6.9, patient has been transfused with 1 unit of packed red blood cells #7. Hypertension #8. Chronic hypercapnic and hypoxemic respiratory failure related to COPD #9. Diabetes mellitus type 2 #10. History of depression #11. 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 Valvular heart disease, moderate mitral regurgitation, moderate to severe tricuspid regurgitation, and severe pulmonary hypertension with a right-sided pressures of 67.7 mmHg #13. Troponin leak, possibly related to acute exacerbation of CHF, and acute on chronic renal failure Plan: Today's chest x-ray shows increasing interstitial edema, and small right greater than left pleural effusions, patient has been diuresed, although he remains in positive balance intravascularly he seems to be dry, his Lasix dose has been cut back to once daily per nephrology, FiO2 is the same as yesterday. Maintain aspiration precautions, repeat chest x-ray in the morning. Continue current medical treatment I performed a history & physical examination of the patient and discussed their management with my nurse practitioner, Valorie Gilbert. I reviewed the nurse practitioner's note and agree with the documented findings and plan of care. Lung sounds are positive for diminished breath sounds. The findings and the impression was discussed with the patient. I attest to the documentation by the nurse practitioner. Time with Patient: Less than 30
[2020-02-26 11:40] LABS: Glucose,Whole Blood 73 mg/dL (75-99)
--- NOTE | 2020-02-26 12:48 | P.PN ---
<Murphy Ambriz - Last Filed: 02/26/20 12:46> Subjective Progress Note Date: 02/26/20 The patient is seen and examined bedside this morning in regards to his right hip fracture. The plan is to take the patient to surgery this afternoon with Dr. Angel for Operative fixation of the right hip fracture. Patient is c urrently awaiting clearance from multiple medical specialties. The time of my exam, the patient is complaining of minimal pain in the right hip. He is complaining of right rib pain. He has no new complaints today. Vital signs stable. Objective - Vital Signs Vital signs: Vital Signs Temp 97.9 F 02/26/20 11:00 Pulse 67 02/26/20 11:00 Resp 18 02/26/20 11:00 BP 151/71 02/26/20 11:00 Pulse Ox 94 L 02/26/20 11:00 Intake & Output 02/25/20 02/26/20 02/26/20 18:59 06:59 18:59 Intake Total 685 Output Total 525 325 Balance 160 -325 Weight 72 kg 74 kg Intake: Oral 685 Output: Urine 525 325 Other: Voiding Method Indwelling Catheter Indwelling Catheter Indwelling Catheter - Exam On examination, the patient is sitting in bed in no apparent distress. Nasal cannula in place. Conversation dyspnea noted. On inspection of the right lower extremity, the extremity is warm and well perfused with brisk capillary refill. He has good strength and range of motion of the right ankle. Motor and sensory function appear intact of the right lower extremity. - Labs CBC & Chem 7: 02/25/20 07:03 02/26/20 07:40 Labs: Abnormal Lab Results - Last 24 Hours (Table) 02/25/20 02/25/20 02/26/20 Range/Units 16:22 20:32 06:54 BUN (9-20) mg/dL Creatinine (0.66-1.25) mg/dL Glucose (74-99) mg/dL POC Glucose (mg/dL) 100 H 106 H 65 L (75-99) mg/dL Calcium (8.4-10.2) mg/dL Magnesium (1.6-2.3) mg/dL ALT (4-49) U/L Total Protein (6.3-8.2) g/dL Albumin (3.5-5.0) g/dL 02/26/20 02/26/20 Range/Units 07:40 11:39 BUN 89 H (9-20) mg/dL Creatinine 3.86 H (0.66-1.25) mg/dL Glucose 71 L (74-99) mg/dL POC Glucose (mg/dL) 73 L (75-99) mg/dL Calcium 8.3 L (8.4-10.2) mg/dL Magnesium 2.4 H (1.6-2.3) mg/dL ALT 129 H (4-49) U/L Total Protein 5.5 L (6.3-8.2) g/dL Albumin 2.8 L (3.5-5.0) g/dL Assessment and Plan Assessment: Nondisplaced right transcervical femoral neck fracture COVID-19 + Plan: - We will plan to move forward with operative fixation of the patient's right femoral neck fracture this afternoon with Dr. Angel, if medical clearance is obtained from all medical specialties. Planning for the procedure to be performed with spinal anesthetic and limited sedation. - NPO diet. - Continue PRN pain management. Patient discussed with Dr. Angel. <Juan Angel - Last Filed: 02/27/20 09:31> Objective - Vital Signs Vital signs: Vital Signs Temp 98.0 F 02/27/20 07:00 Pulse 75 02/27/20 07:00 Resp 18 02/27/20 07:00 BP 142/69 02/27/20 07:00 Pulse Ox 97 02/27/20 07:00 Intake & Output 02/26/20 02/27/20 02/27/20 18:59 06:59 18:59 Intake Total 490 240 Output Total 650 800 Balance -160 -560 Weight 74.5 kg Intake: Oral 490 240 Output: Urine 650 800 Uretheral (Orellana) 800 Other: Voiding Method Indwelling Catheter Indwelling Catheter Indwelling Catheter - Labs CBC & Chem 7: 02/25/20 07:03 02/27/20 08:26 Labs: Abnormal Lab Results - Last 24 Hours (Table) 02/26/20 02/26/20 02/27/20 Range/Units 11:39 20:14 07:00 BUN (9-20) mg/dL Creatinine (0.66-1.25) mg/dL Glucose (74-99) mg/dL POC Glucose (mg/dL) 73 L 101 H 217 H (75-99) mg/dL Calcium (8.4-10.2) mg/dL 02/27/20 Range/Units 08:26 BUN 84 H (9-20) mg/dL Creatinine 3.39 H (0.66-1.25) mg/dL Glucose 191 H (74-99) mg/dL POC Glucose (mg/dL) (75-99) mg/dL Calcium 8.3 L (8.4-10.2) mg/dL Assessment and Plan Plan: Discussed with RAÚL Ambriz and agree with above. After discussion with Anesthesia, surgery was postponed to ideally optimize the patient's pulmonary status. Plan for percutaneous surgical stabilization of the fracture on 02/27/20.
--- NOTE | 2020-02-26 13:06 | P.PN ---
Subjective Progress Note Date: 02/26/20 74-year-old male resident currently at [facility] subacute rehab ,known to the practice with history of severe pulmonary hypertension, hypertension hyperlipidemia diabetes mellitus type 2 former smoker anxiety COPD stage III chronic renal insufficiency, recent pneumonia, early dementia ([place] cog nitive scoring at [facility] 11 out of 30), admitted with right hip fracture status post fall in the shower, sustaining multiple skin tears/abrasions to right ear, right chest, bilateral forearms, riight hip. Right ear required sutures. Head and C-spine reported no spine fracture spine fracture, no acute intracranial abnormality-unchanged from prior exam. Pelvis x-ray reported nondisplaced right femoral neck fracture. EKG reportedly accelerated junctional rhythm with nonspecific ST-T wave abnormalities. Troponins 0.047, 0.054. BNP 25,000 Tested positive for coronavirus. Chest x-ray reporting CHF with pleural effusions, pulmonary edema worse than last exam .Maintaining O2 sats in the low 90s on 4 L nasal cannula. Afebrile, WBC 10, hemoglobin 6.9, platelets 174. sodium 138 potassium 4.2 bicarb 14, creatinine 3.51 (baseline around 1.9).glucose 146, mildly elevated LFTs .Evaluated by orthopedic surgery, discussing surgical repair pending pulmonary, cardiology, medical clearance. 02/25/2020 Diuresing on Lasix IV push, with 24-hour I&O reflecting overnigiht urine output of 600 MLS. Renal function worsening, creatinine up to 3.85 . O2 requirement increased up to 6 L nasal cannula, maintaining O2 sats in the 90s. Reports nonproductive cough. Chest x-ray reporting improving bilateral infiltrates greater on right . Decreasing edema. complaints of hip pain, receiving Dilaudid. Hemoglobin 8.3 status post 1 unit packed RBCs. Orellana with hematuria. Afebrile, WBC increased to 12.9. 02/26/2020 yesterday diuretics decreased, but 24-hour I&O inaccurate. Significant lower extremity edema persists. Chest x-ray reporting worsening, developing CHF exacerbation, small lateral pleural effusions-right greater than left with increasing interstitial edema. Continues on 6 L nasal cannula maintaining O2 sats in the 90s. Remains wheezy but today able to speak in sentences without shortness of breath. Renal function unchanged. Complains of constipation. Reports no bowel movement 2 days. Denies chest pain, palpitations. Complains more of right-sided rib cage pain, hip pain currently controlled. Telemetry sinus rhythm. Objective - Vital Signs Vital signs: Vital Signs Temp 97.8 F 02/26/20 07:00 Pulse 58 L 02/26/20 07:00 Resp 18 02/26/20 08:00 BP 126/66 02/26/20 07:00 Pulse Ox 99 02/26/20 07:00 Intake & Output 02/25/20 02/26/20 02/26/20 18:59 06:59 18:59 Intake Total 685 Output Total 525 325 Balance 160 -325 Weight 72 kg 74 kg Intake: Oral 685 Output: Urine 525 325 Other: Voiding Method Indwelling Catheter Indwelling Catheter Indwelling Catheter - Exam General: Sitting up in bed, no acute distress HEENT: [PERRL. EOMI. No pharyngeal erythema or exudate.] Neck: [No adenopathy. Mild JVD Cardiac: [Heart regular in rate and rhythm. No S3. No S4. No clicks, rubs. No murmur.] Lungs: Bilateral bases diminished, with expiratory wheezing Abdomen: [No mass. No organomegaly. Bowel sounds presnt and normoactive in all 4 quadrants.] : Orellana with hematuria Extremes: Right hip pain, sensation grossly intact, decreasing edema bilateral lower extremities, no clubbing, no cyanosis, positive pulses Skin: [Right ear lacerations/scabbed with sutures, bilateral forearms with skin tears/abrasions .left hand with first and second digit missing .No rash.] Neurologic: [No lateralizing deficits. CN II - XII grossly intact.] Lymphatic: [No adenopathy.] - Labs CBC & Chem 7: 02/25/20 07:03 02/26/20 07:40 Labs: Abnormal Lab Results - Last 24 Hours (Table) 02/25/20 02/25/20 02/26/20 Range/Units 16:22 20:32 06:54 BUN (9-20) mg/dL Creatinine (0.66-1.25) mg/dL Glucose (74-99) mg/dL POC Glucose (mg/dL) 100 H 106 H 65 L (75-99) mg/dL Calcium (8.4-10.2) mg/dL Magnesium (1.6-2.3) mg/dL ALT (4-49) U/L Total Protein (6.3-8.2) g/dL Albumin (3.5-5.0) g/dL 02/26/20 Range/Units 07:40 BUN 89 H (9-20) mg/dL Creatinine 3.86 H (0.66-1.25) mg/dL Glucose 71 L (74-99) mg/dL POC Glucose (mg/dL) (75-99) mg/dL Calcium 8.3 L (8.4-10.2) mg/dL Magnesium 2.4 H (1.6-2.3) mg/dL ALT 129 H (4-49) U/L Total Protein 5.5 L (6.3-8.2) g/dL Albumin 2.8 L (3.5-5.0) g/dL Assessment and Plan Assessment: (1) acute nondisplaced right femoral neck fracture, status post fall (2) acute hypoxic respiratory failure secondary to acute on chronic CHF exacerbation, diastolic dysfunction, EF 50-55% (3) severe pulmonary hypertension (4)acute COVID- 19 infection , possible acute COVID-19 Pneumonia. (5) Acute on chronic renal failure Current Visit: No Status: Acute Code(s): N17.9 - ACUTE KIDNEY FAILURE, UNSPECIFIED SNOMED Code(s): 87292358 (6) Acute anemia, status post 1 unit packed RBCs (7) elevated troponin, cardiology following (8) Diabetes mellitus Current Visit: No Status: Acute Code(s): E11.9 - TYPE 2 DIABETES MELLITUS WITHOUT COMPLICATIONS SNOMED Code(s): 22543423 (9)Elevated LFTs , mild (10) Hypertension Current Visit: No Status: Acute Code(s): I10 - ESSENTIAL (PRIMARY) HYPERTENSION SNOMED Code(s): 47443564 (11) chronic hypoxic respiratory failure secondary to COPD , wears 2Lnc at home (12)Cognitive impairment, recent ventral cognitive assessment [facility] reported 11 out of 30. Current Visit: Yes Status: Acute Code(s): R41.89 - OTH SYMPTOMS AND SIGNS W COGNITIVE FUNCTIONS AND AWARENESS SNOMED Code(s): 943316719 (13) prior nicotine dependence (14) troponin leak, acute coronary syndrome ruled out as per cardiology, p ossibly related to CHF and renal failure Plan: Continue on current medication regime ,monitoring and symptomatic treatment. Strict I&O's, as patient is CHF. 1500 mL fluid restriction. Lasix dose increased back to twice a day.Aggressive pulmonary toileting with Nebulized bronchodilators. Patient is high risk for surgery given his multisystem organ failure, cleared for surgery with guarded prognosis. The impression and plan of care has been dictated as directed. : I performed a history and examination of this patient, discussed the same with the dictator. I agree with the dictator's note ,documented as a scribe. Any additional findings or plans will be noted.
[2020-02-26] MEDS: SENNOSIDES-DOCUSATE SODIUM 1 EACH TAB PO SCH ×2 (13:48→20:31)
[2020-02-26] MEDS: DOCUSATE 100 MG CAP PO SCH ×2 (13:48→20:31)
[2020-02-26] MEDS: HYDROmorphone 0.5 MG/0.5 ML SYRINGE IVP PRN (13:50)
[2020-02-26] MEDS: ATORVASTATIN 20 MG TAB PO SCH (20:30)
[2020-02-26] MEDS: INSULIN DETEMIR (LEVEMIR) 100 UNIT/ML SYR SQ SCH (20:35)
[2020-02-27] MEDS: hydrALAZINE HCL 25 MG TAB PO SCH ×2 (06:13→12:49)
[2020-02-27] MEDS: ALBUTEROL HFA INHALER INHALATION SCH ×4 (07:02→20:13)
[2020-02-27] MEDS: TIOTROPIUM 18 MCG/PUFF INHALER INHALATION SCH (07:03)
[2020-02-27 07:53] LABS: Glucose,Whole Blood 101 mg/dL (75-99)
[2020-02-27 07:53] LABS: Glucose,Whole Blood 83 mg/dL (75-99)
[2020-02-27 08:02] LABS: Glucose,Whole Blood 217 mg/dL (75-99)
[2020-02-27] MEDS: METOPROLOL TARTRATE 50 MG TAB PO SCH ×3 (08:06→22:01)
[2020-02-27] MEDS: INSULIN ASPART (NovoLOG) 100 UNIT/ML VIAL SQ SCH ×4 (08:06→23:53)
[2020-02-27] MEDS: buPROPion XL 150 MG TAB.ER.24H PO SCH (08:19)
[2020-02-27] MEDS: SENNOSIDES-DOCUSATE SODIUM 1 EACH TAB PO SCH ×2 (08:19→21:00)
[2020-02-27] MEDS: PANTOPRAZOLE 40 MG TABLET PO SCH (08:19)
[2020-02-27] MEDS: LACTATED RINGERS 1,000 ML IV SCH (08:19)
[2020-02-27] MEDS: DOCUSATE 100 MG CAP PO SCH (08:19)
[2020-02-27] MEDS: ISOSORBIDE MONONITRATE ER 30 MG TAB.ER.24H PO SCH (08:19)
[2020-02-27] MEDS: ESCITALOPRAM 10 MG TAB PO SCH (08:19)
[2020-02-27] MEDS: TAMSULOSIN 0.4 MG CAP.ER.24H PO SCH (08:19)
[2020-02-27] MEDS: LINAGLIPTIN 5 MG TABLET PO SCH (08:19)
[2020-02-27] MEDS: FUROSEMIDE 10 MG/ML 4 ML VIAL IV SCH (08:36)
[2020-02-27 09:17] LABS: Calcium 8.3 mg/dL (8.4-10.2)
--- NOTE | 2020-02-27 11:07 | XR ---
EXAMINATION TYPE: XR chest 1V portable DATE OF EXAM: 02/27/2020 COMPARISON: 02/26/2020 HISTORY: Shortness of breath TECHNIQUE: Single frontal view of the chest is obtained. FINDINGS: Cardiomediastinal silhouette is enlarged as seen on the prior. Blunting of the right costo phrenic angle is seen with worsening of the multifocal right midlung and right basilar airspace disea se. Very trace left pleural effusion is again suspected. Mild background pulmonary vascular congestio n. IMPRESSION: Worsening multifocal right-sided airspace disease with stable small right and trace left pleural effusions and mild pulmonary vascular congestion. Right-sided airspace disease may represent confluent pulmonary edema, atelectasis or pneumonia.
--- NOTE | 2020-02-27 11:52 | P.PN ---
Subjective HISTORY OF PRESENTING ILLNESS This is a pleasant 74-year-old male past medical history significant for diastolic heart failure, COPDon home oxygen, diabetes mellitus, hypertension and dyslipidemia. He denies prior history of coronary artery disease and does not follow in the office with a embalmer assistant. He is sitting up in bed in no acut e distress. He continues to complain of shortness of breath, cough and constipation. Continues to require oxygen at 6 liters nasal cannula. Repeat chest x-ray this morning appears worse from yesterday. Worsening multifocal right-sided airspace disease with stable small right and trace left pleural effusion and pulmonary vascular congestion. Laboratory data reviewed, sodium 137, potassium 4, creatinine 3.39 with a GFR of 17. Urine output for the previous 24 hours 1450 mL. Blood pressure 142/69 heart rate 75 afebrile obtaining oxygen saturation on nasal cannula. Currently maintained on lasix IV daily, atorvastatin 20 mg daily, hydralazine 25 mg TID, imdur 30 mg daily and lopressor 50 mg BID. PHYSICAL EXAMINATION CONSTITUTIONAL: Mild respiratory distress. HEENT: Head is normocephalic. Pupils are equal, round. Sclerae anicteric. Mucous membranes of the mouth are moist. Bilateral 1 cm JVD. No carotid bruit. CHEST EXAMINATION: Bibasilar rales, no wheezes or rhonchi. No chest wall tenderness is noted on palpation or with deep breathing. HEART EXAMINATION: Regular rate and rhythm. S1, S2 heard. Systolic ejection murmur at the base and apex. No gallops or rub. EXTREMITIES: 2+ peripheral pulses, 1+ bilateral lower extremity pitting edema and no calf tenderness. ASSESSMENT Acute on chronic diastolic heart failure Acute on chronic kidney disease Right femoral neck fracture s/p fall in the shower COVID 19 Anemia COPD on home oxygen Diabetes mellitus Hypertension Dyslipidmeia Valvular heart disease Pulmonary hypertension Abdominal pain and constipation PLAN He continues to remain in congestive heart failure however his urine output is increasing renal function is slowly improving. Continue current dose of IV Lasix. Repeat chest x-ray in the morning. Follow electrolytes and renal function in the morning. Remains high risk to undergo surgical intervention. Likely will require ICU monitoring immediately postoperatively. Nurse Practitioner note has been reviewed, I agree with a documented findings and plan of care. Patient was seen and examined. Objective - Vital Signs Vital signs: Vital Signs Temp 98.0 F 02/27/20 07:00 Pulse 75 02/27/20 07:00 Resp 18 02/27/20 07:00 BP 142/69 02/27/20 07:00 Pulse Ox 97 02/27/20 07:00 Intake & Output 02/26/20 02/27/20 02/27/20 18:59 06:59 18:59 Intake Total 490 240 Output Total 650 800 Balance -160 -560 Weight 74.5 kg Intake: Oral 490 240 Output: Urine 650 800 Uretheral (Orellana) 800 Other: Voiding Method Indwelling Catheter Indwelling Catheter Indwelling Catheter - Labs CBC & Chem 7: 02/25/20 07:03 02/27/20 08:26 Labs: Abnormal Lab Results - Last 24 Hours (Table) 02/26/20 02/26/20 02/27/20 Range/Units 11:39 20:14 07:00 POC Glucose (mg/dL) 73 L 101 H 217 H (75-99) mg/dL
[2020-02-27] MEDS ORDERED: BISACODYL 10 MG SUPP RECTAL STA (11:57)
--- NOTE | 2020-02-27 12:09 | P.PN ---
Subjective Progress Note Date: 02/27/20 74-year-old male resident currently at [facility] subacute rehab ,known to the practice with history of severe pulmonary hypertension, hypertension hyperlipidemia diabetes mellitus type 2 former smoker anxiety COPD stage III chronic renal insufficiency, recent pneumonia, early dementia ([place] cog nitive scoring at [facility] 11 out of 30), admitted with right hip fracture status post fall in the shower, sustaining multiple skin tears/abrasions to right ear, right chest, bilateral forearms, riight hip. Right ear required sutures. Head and C-spine reported no spine fracture spine fracture, no acute intracranial abnormality-unchanged from prior exam. Pelvis x-ray reported nondisplaced right femoral neck fracture. EKG reportedly accelerated junctional rhythm with nonspecific ST-T wave abnormalities. Troponins 0.047, 0.054. BNP 25,000 Tested positive for coronavirus. Chest x-ray reporting CHF with pleural effusions, pulmonary edema worse than last exam .Maintaining O2 sats in the low 90s on 4 L nasal cannula. Afebrile, WBC 10, hemoglobin 6.9, platelets 174. sodium 138 potassium 4.2 bicarb 14, creatinine 3.51 (baseline around 1.9).glucose 146, mildly elevated LFTs .Evaluated by orthopedic surgery, discussing surgical repair pending pulmonary, cardiology, medical clearance. 02/25/2020 Diuresing on Lasix IV push, with 24-hour I&O reflecting overnigiht urine output of 600 MLS. Renal function worsening, creatinine up to 3.85 . O2 requirement increased up to 6 L nasal cannula, maintaining O2 sats in the 90s. Reports nonproductive cough. Chest x-ray reporting improving bilateral infiltrates greater on right . Decreasing edema. complaints of hip pain, receiving Dilaudid. Hemoglobin 8.3 status post 1 unit packed RBCs. Orellana with hematuria. Afebrile, WBC increased to 12.9. 02/26/2020 yesterday diuretics decreased, but 24-hour I&O inaccurate. Significant lower extremity edema persists. Chest x-ray reporting worsening, developing CHF exacerbation, small lateral pleural effusions-right greater than left with increasing interstitial edema. Continues on 6 L nasal cannula maintaining O2 sats in the 90s. Remains wheezy but today able to speak in sentences without shortness of breath. Renal function unchanged. Complains of constipation. Reports no bowel movement 2 days. Denies chest pain, palpitations. Complains more of right-sided rib cage pain, hip pain currently controlled. Telemetry sinus rhythm. 02/27/2020 maintained on Lasix IV push daily , 24-hour I&O reflecting a gain of 0.5 kg . Urine output increasing. Creatinine down to 3.39 .chest x-ray reporting worsening multifocal right-sided airspace disease with stable bilateral pleural effusions and mild pulmonary vascular congestion. Continues on 6 L nasal cannula maintaining O2 sats in the 90s.VSS, afebrile. Reports no bowel movement, Dulcolax suppository ordered for after surgery. OR pending. Objective - Vital Signs Vital signs: Vital Signs Temp 98.0 F 02/27/20 07:00 Pulse 75 02/27/20 07:00 Resp 18 02/27/20 07:00 BP 142/69 02/27/20 07:00 Pulse Ox 97 02/27/20 07:00 Intake & Output 02/26/20 02/27/20 02/27/20 18:59 06:59 18:59 Intake Total 490 240 Output Total 650 800 Balance -160 -560 Weight 74.5 kg Intake: Oral 490 240 Output: Urine 650 800 Uretheral (Orellana) 800 Other: Voiding Method Indwelling Catheter Indwelling Catheter Indwelling Catheter - Exam General: Sitting up in bed, no acute distress HEENT: [PERRL. EOMI. No pharyngeal erythema or exudate.] Neck: [No adenopathy. No JVD Cardiac: [Heart regular in rate and rhythm. No S3. No S4. No clicks, rubs. No murmur.] Lungs: Bilateral bases diminished, fine bibasilar crackles, no rhonchi, no wheezing Abdomen: [Soft, mild mid epigastric tenderness ,No mass. No organomegaly. Bowel sounds presnt and normoactive in all 4 quadrants.] Extremes: Right hip pain, sensation grossly intact, decreasing edema bilateral lower extremities, no clubbing, no cyanosis, positive pulses Skin: [Right ear lacerations/scabbed with sutures, bilateral forearms with skin tears/abrasions .left hand with first and second digit missing .No rash.] Neurologic: [No lateralizing deficits. CN II - XII grossly intact.] - Labs CBC & Chem 7: 02/25/20 07:03 02/27/20 08:26 Labs: Abnormal Lab Results - Last 24 Hours (Table) 02/26/20 02/26/20 02/27/20 Range/Units 11:39 20:14 07:00 BUN (9-20) mg/dL Creatinine (0.66-1.25) mg/dL Glucose (74-99) mg/dL POC Glucose (mg/dL) 73 L 101 H 217 H (75-99) mg/dL Calcium (8.4-10.2) mg/dL 02/27/20 Range/Units 08:26 BUN 84 H (9-20) mg/dL Creatinine 3.39 H (0.66-1.25) mg/dL Glucose 191 H (74-99) mg/dL POC Glucose (mg/dL) (75-99) mg/dL Calcium 8.3 L (8.4-10.2) mg/dL Assessment and Plan Assessment: (1) acute nondisplaced right femoral neck fracture, status post fall (2) acute hypoxic respiratory failure secondary to acute on chronic CHF exacerbation, diastolic dysfunction, EF 50-55% (3) severe pulmonary hypertension (4)acute COVID- 19 infection , possible acute COVID-19 Pneumonia. (5) Acute on chronic renal failure Current Visit: No Status: Acute Code(s): N17.9 - ACUTE KIDNEY FAILURE, UNSPECIFIED SNOMED Code(s): 05089722 (6) Acute anemia, status post 1 unit packed RBCs (7) elevated troponin, cardiology following (8) Diabetes mellitus Current Visit: No Status: Acute Code(s): E11.9 - TYPE 2 DIABETES MELLITUS WITHOUT COMPLICATIONS SNOMED Code(s): 16415786 (9)Elevated LFTs , mild (10) Hypertension Current Visit: No Status: Acute Code(s): I10 - ESSENTIAL (PRIMARY) H YPERTENSION SNOMED Code(s): 18385130 (11) chronic hypoxic respiratory failure secondary to COPD , wears 2Lnc at home (12)Cognitive impairment, recent [facility] cognitive assessment [facility] reported 11 out of 30. Current Visit: Yes Status: Acute Code(s): R41.89 - OTH SYMPTOMS AND SIGNS W COGNITIVE FUNCTIONS AND AWARENESS SNOMED Code(s): 445854715 (13) prior nicotine dependence (14) troponin leak, acute coronary syndrome ruled out as per cardiology, possibly related to CHF and renal failure Plan: Continue on current medication regime ,monitoring and symptomatic treatment. OR pending. Maintained Strict I&O's 1500 mL fluid restriction. Diuretics as per nephrology. COntinue aggressive pulmonary toileting with Nebulized bronchodilators. The impression and plan of care has been dictated as directed. : I performed a history and examination of this patient, discussed the same with the dictator. I agree with the dictator's note ,documented as a scribe. Any additional findings or plans will be noted.
[2020-02-27] MEDS: LIDOCAINE 5% PATCH TOPICAL SCH (12:18)
[2020-02-27 12:19] LABS: Glucose,Whole Blood 193 mg/dL (75-99)
--- NOTE | 2020-02-27 12:35 | P.PN ---
Subjective Patient is seen in follow-up for acute kidney injury on chronic kidney disease. Renal function is better today. Oral intake has been fair. Edema is improved. He is maintained on IV Lasix. Nonoliguric. Vital signs are stable. General: The patient appeared well nourished and normally developed. HEENT: Head exam is unremarkable. Neck is without jugular venous distension. LUNGS: Breath sounds decreased. HEART: Rate and Rhythm are regular. ABDOMEN: Soft, nontender. EXTREMITITES: 1+ edema. Objective - Vital Signs Vital signs: Vital Signs Temp 98.0 F 02/27/20 07:00 Pulse 75 02/27/20 07:00 Resp 18 02/27/20 07:00 BP 142/69 02/27/20 07:00 Pulse Ox 97 02/27/20 07:00 Intake & Output 02/26/20 02/27/20 02/27/20 18:59 06:59 18:59 Intake Total 490 240 Output Total 650 800 850 Balance -160 -560 -850 Weight 74.5 kg Intake: Oral 490 240 Output: Urine 650 800 850 Uretheral (Orellana) 800 350 Other: Voiding Method Indwelling Catheter Indwelling Catheter Indwelling Catheter - Labs CBC & Chem 7: 02/25/20 07:03 02/27/20 08:26 Labs: Abnormal Lab Results - Last 24 Hours (Table) 02/26/20 02/27/20 02/27/20 Range/Units 20:14 07:00 08:26 BUN 84 H (9-20) mg/dL Creatinine 3.39 H (0.66-1.25) mg/dL Glucose 191 H (74-99) mg/dL POC Glucose (mg/dL) 101 H 217 H (75-99) mg/dL Calcium 8.3 L (8.4-10.2) mg/dL 02/27/20 Range/Units 12:17 BUN (9-20) mg/dL Creatinine (0.66-1.25) mg/dL Glucose (74-99) mg/dL POC Glucose (mg/dL) 193 H (75-99) mg/dL Calcium (8.4-10.2) mg/dL Assessment and Plan Plan: Assessment: 1. Acute kidney injury secondary to ATN secondary to cardiorenal syndrome and additional component of covid-19 infection and acute blood loss anemia. Creatinine was 3.33 on admission and peaked at 3.86 this admission. It is 3.39 today. UA benign. Right kidney small in size but no evidence of hydronephrosis. 2. Chronic kidney disease stage III secondary to nephrosclerosis with baseline creatinine in the range of 1.6-2. 3. Acute blood loss anemia scheduled for blood transfusion on February 15. 4. Status post fall with right femoral neck fracture. Scheduled for surgery today. 5. Covid 19 positive. 6. Insulin-dependent diabetes mellitus. 7. Volume overload. Better with diuresis. 8. Acute on chronic diastolic CHF with moderate mitral regurgitation, moderate to severe tricuspid regurgitation. 9. Severe pulmonary hypertension. Plan: Maintain Lasix 40 mg IV once daily. Avoid nephrotoxins. Maintain Orellana. Continue to monitor renal function and urine output.
--- NOTE | 2020-02-27 12:53 | P.PN ---
Subjective Progress Note Date: 02/27/20 Principal diagnosis: Fall, nondisplaced right femoral neck fracture, acute on chronic hypoxic respiratory failure related to exacerbation of CHF This is a very pleasant 74-year-old gentleman who follows with Dr. Akhtar as his primary care provider. He is a history of diabetes mellitus, type II, hypertension, hyperlipidemia, anxiety, previous chronic tobacco dependence and chronic obstructive pulmonary disease, on home oxygen at 2 L. He had recently in November 2019 been admitted for an acute exacerbation of chronic congestive heart failure secondary to diastolic dysfunction. He was subsequent discharged to [facility] on the abbasi where he has been staying for rehabilitation. Last evening he was brought to the emergency room after sustaining a fall in the shower. He had multiple abrasions on his skin. Laceration to the right ear requiring sutures,, trauma to the right chest and a nondisplaced right femoral neck fracture. Computed tomography scan of the brain and C-spine revealed no acute intracranial abnormalities. No cervical spine fractures. He had been seen and evaluated by orthopedic surgery and were considering repair of the right hip fracture. We have been asked to consult for preoperative clearance. He is seen today in consultation on the regular medical floor. He is currently awake and alert in no acute distress. He is maintaining O2 saturation in the low 90s on 4 L/m per nasal cannula. Chest x-ray showed evidence of congestive heart failure with pleural effusions and pulmonary edema which is worse compared to previous in November 2019. White count 10.0. Hemoglobin 6.9. Platelet count 174. Lymphocytes 0.4. INR 1.2. Sodium 138. Potassium 4.2. Bicarb 14. Creatinine 3.51. Glucose 146. AST 83. ALT 121. Troponin 0.047, 0.054. ProBNP 25,000. Coronavirus is detected. On 02/25/2020 patient seen in follow-up on a general medical floor, is lethargic on today's exam, but arousable, able to give simple few word answers, denies any acute distress, he is currently on 6 L of oxygen and the pulse ox of 92-95%, his been afebrile. Patient has received a dose of Lasix yesterday with 20 mg of IV Lasix, and again in the afternoon with 40 mg of Lasix, today's chest x-ray shows improving bilateral lung infiltrates remaining greater on the right. Renal profile is slightly worse today, with BUN of 84, and creatinine is 3.85, white blood cell count of 12.9, hemoglobin of 8.3, he did receive a unit of packed red blood cells yesterday for a hemoglobin of 6.9. Electrolytes are within normal limits. Lung sounds reveal diminished breath sounds at the bases, however patient still has significant lower extremity edema. On 02/26/2020 patient seen in follow-up on general medical floor, he states he is not feeling as good today, feels more short of breath. He is awake, answering questions appropriately, he is currently on 6 L of oxygen with a pulse ox of 90-99%, hemodynamically stable, does not appear to be in any acute distress, is resting in bed. His been diuresed, still has significant lower extremity edema, however his mucous membranes are dry, patient is thirsty, his renal profile today is relatively stable, B1 is 89, and creatinine is 3.86 electrolytes are within normal limits. No complaints of chest pain, his weight is up by 2 kg in the last 24 hours, he is in positive balance, nephrology is following, and contact IV Lasix to once daily. Today's chest x-ray shows developing CHF exacerbation with a small right greater than left pleural effusions and increasing interstitial edema. We'll keep same dose of IV Lasix, continue monitoring patient's level of dyspnea, and FiO2 requirement. The patient is seen today 02/27/2020 in follow-up on the regular medical floor. He is currently resting fairly comfortably in bed. Awake and alert in no acute distress. He is continuing to require 6 L high flow nasal cannula to maintain O2 saturations in the 90s. He is afebrile. Hemodynamically stable. Sodium 137. Potassium 4.0. Creatinine 3.39. He remains on bronchodilators. Chest x- ray reveals worsening multifocal right-sided airspace disease with stable small right and trace left pleural effusion with mild pulmonary vascular congestion. Is given Lasix IV 40 mg times one this morning. The plan is for possible closed reduction with percutaneous pinning of the right femoral neck nondisplaced fracture per orthopedics today. Objective - Vital Signs Vital signs: Vital Signs Temp 98.0 F 02/27/20 07:00 Pulse 75 02/27/20 07:00 Resp 18 02/27/20 07:00 BP 142/69 02/27/20 07:00 Pulse Ox 97 02/27/20 07:00 Intake & Output 02/26/20 02/27/20 02/27/20 18:59 06:59 18:59 Intake Total 490 240 Output Total 650 800 850 Balance -160 -560 -850 Weight 74.5 kg Intake: Oral 490 240 Output: Urine 650 800 850 Uretheral (Orellana) 800 350 Other: Voiding Method Indwelling Catheter Indwelling Catheter Indwelling Catheter - Exam GENERAL EXAM: Arousable, 74-year-old white male, on 6 L of oxygen with a pulse ox of 99% comfortable in no apparent distress. HEAD: Normocephalic/atraumatic. EYES: Normal reaction of pupils, equal size. Conjunctiva pink, sclera white. NOSE: Clear with pink turbinates. THROAT: No erythema or exudates. NECK: No masses, no JVD, no thyroid enlargement, no adenopathy. CHEST: No chest wall deformity. Symmetrical expansion. LUNGS: Equal air entry with few scattered rhonchi, crackles in posterior bases. CVS: Regular rate and rhythm, normal S1 and S2, no gallops, no murmurs, no rubs ABDOMEN: Soft, nontender. No hepatosplenomegaly, normal bowel sounds, no guarding or rigidity. EXTREMITIES: No clubbing, no cyanosis, 2+ pulses and upper and lower extremities. Tenderness in the right hip, with 1+ lower extremity edema. Missing first and second digits of the left hand MUSCULOSKELETAL: Muscle strength and tone normal. SPINE: No scoliosis or deformity SKIN: No rashes CENTRAL NERVOUS SYSTEM: Somnolent. But responsive No focal deficits, tone is normal in all 4 extremities. - Labs CBC & Chem 7: 02/25/20 07:03 02/27/20 08:26 Labs: Abnormal Lab Results - Last 24 Hours (Table) 02/26/20 02/27/20 02/27/20 Range/Units 20:14 07:00 08:26 BUN 84 H (9-20) mg/dL Creatinine 3.39 H (0.66-1.25) mg/dL Glucose 191 H (74-99) mg/dL POC Glucose (mg/dL) 101 H 217 H (75-99) mg/dL Calcium 8.3 L (8.4-10.2) mg/dL 02/27/20 Range/Units 12:17 BUN (9-20) mg/dL Creatinine (0.66-1.25) mg/dL Glucose (74-99) mg/dL POC Glucose (mg/dL) 193 H (75-99) mg/dL Calcium (8.4-10.2) mg/dL Assessment and Plan Assessment: 1 Acute trauma including a nondisplaced right femoral neck fracture status post fall. Right-sided chest wall pain. Skin abrasions. Laceration to the right ear requiring sutures. Plan is for possible repair of the for femoral neck fracture today 2 Acute CoVID 19 infection 3 Acute hypoxic respiratory failure secondary to an acute exacerbation of chronic diastolic congestive heart failure with preserved left ventricular systolic function. 4 Severe pulmonary hypertension with an RVSP of 67 mmHg. 5 Acute anemia with hemoglobin is 6.9, received 1 unit packed red blood cells, current hemoglobin 8.3 6 Acute on chronic renal failure with current creatinine 3.39 7 Troponin leak 8 Elevated LFTs 9 History of dementia 10 Diabetes mellitus, type II 11 Hyperlipidemia 12 Hypertension 13 Chronic obstructive pulmonary disease, oxygen dependent 14 History of previous tobacco dependence of 42 years at 1 pack per day. Quit approximately 3 years ago 15 Poor overall functional performance based on the above-mentioned multiple comorbidities Plan: The patient was seen and evaluated by Dr. Ramos Chest x-ray and labs reviewed Lasix 40 mg IVP 1 today Plan is for repair of the femoral neck fracture today We'll continue to follow and make further recommendations based on his clinical status I, the cosigning physician, performed a history & physical examination of the patient. Lungs sounds with few scattered rhonchi, crackles in the posterior bases. Maintaining good O2 saturations in the 90s on 6 L/m per nasal cannula. I discussed the assessment and plan of care with my nurse practitioner, Eveline Munguia. I attest to the above consultation as dictated by her.
[2020-02-27] MEDS ORDERED: SUCCINYLCHOLINE CHLORIDE 100 MG/5 ML SYR IV ONE (15:03)
[2020-02-27] MEDS ORDERED: ROCURONIUM BROMIDE 10 MG/ML 5 ML VIAL IV ONE (15:03)
[2020-02-27] MEDS ORDERED: MIDAZOLAM 2 MG/2 ML VIAL ONE (15:03)
[2020-02-27] MEDS ORDERED: IV FLUID CONTINUATION 1,000 ML IV ONE (15:03)
[2020-02-27] MEDS ORDERED: PROPOFOL 10 MG/ML 20 ML VIAL IV ONE (15:03)
[2020-02-27] MEDS ORDERED: fentaNYL (PF) 50 MCG/ML 2 ML AMP ONE (15:03)
[2020-02-27] MEDS ORDERED: SODIUM CHLORIDE 0.9% 100 ML with ceFAZolin 2,000 MG IV ONE ×2 (16:01)
[2020-02-27] MEDS ORDERED: LIDOCAINE 1%-EPI 1:100,000 20 ML VIAL SQ ONE (16:36)
[2020-02-27] MEDS ORDERED: NALOXONE 0.4 MG/ML 1 ML VIAL IV PRN (17:16)
--- NOTE | 2020-02-27 17:16 | P.OP ---
Date of Procedure: 02/27/20 Preoperative Diagnosis: Nondisplaced right transcervical femoral neck fracture Postoperative Diagnosis: Nondisplaced right transcervical femoral neck fracture Procedure(s) Performed: In-situ screw fixation of nondisplaced right transcervical femoral neck fracture Implants: Three (3) [employer]air Magna-Fx 7.0 mm cannulated screws, short threads Anesthesia: GETA Surgeon: Juan Angel Estimated Blood Loss (ml): 10 Condition: stable Disposition: ICU Indications for Procedure: The patient is a 74-year-old male who tripped and fell on his way to the shower, resulting in a nondisplaced right femoral neck fracture. Surgical treatment was recommended. Risks and benefits were discussed with the patient, including (but not limited to) the risks of infection, bleeding, injury tendons or neurovascular structures, AVN, nonunion and possible need for future surgery. He expressed understanding and wished to proceed with surgery. The patient has multiple medical comorbidities, including COPD, heart failure and cvmxi-ok-rcmodeo kidney disease. In addition, he is positive for COVID-19. Surgery was initially delayed to permit medical optimization of these conditions. Consent forms were signed. The surgical site was confirmed and marked. Description of Procedure: The patient was brought to the operative suite by the anesthesia team. General endotracheal anesthesia was administered uneventfully. The patient was transferred to the operating table and positioned supine. The foot of the operative limb was secured in a well-padded boot and positioned straight. The contralateral limb was flexed, abducted and secured to a padded, well-leg espino. All bony prominences were padded in the typical fashion. Prophylactic antibiotics were administered. The right lower extremity was then prepped and draped in standard, sterile fashion. A time-out was performed, confirming patient identifiers, the operative side, site and procedure: all team members expressed agreement. The fracture was evaluated with intraoperative fluoroscopy and was still no ndisplaced. The starting point was localized by palpation and confirmed on imaging. A small stab incision was made on the lateral thigh, immediately distal to the greater trochanter. A 3.2 mm guidewire for a cannulated screw was inserted parallel to the inferior border of the neck and advanced to the subchondral bone of the femoral head. Position was confirmed on orthogonal views. The incision was extended proximally and the fascia was split in line with the incision. Two additional guidewires were inserted in a similar fashion (one anterosuperior and one posterosuperior) to create an inverted triangle configuration. The lengths were measured. The cannulated drill was inserted over the guidewires and advanced past the fracture site. The inferior central screw was placed first. This was inserted with a washer which did not sit flush against the outer cortex and the screw failed to gain purchase. This was initially left in place and the other two screws were sequentially inserted. The posterior screw was inserted with a washer. The inferior screw was then removed. A tap was used over the guidewire, confirming depth of insertion on imaging. The screw was reinserted without the washer and gained excellent purchase. All guidewires were removed. Final x-rays were taken to confirm fracture reduction and implant position. The hip was then ranged under live fluoroscopy: The proximal femur moved as a single unit and there was no appreciable motion at the fracture site. The hip articulated smoothly without crepitus. The wound was thoroughly irrigated with normal saline. The wound was closed in layers: 0-Vicryl for the fascia and 2-0 Vicryl for subcutaneous tissues. The skin was closed with christiana. The surgical field was injected with lidocaine with epinephrine for adjunct postoperative pain control and hemostasis. A sterile dressing was applied. All sponge, needle and instrument counts were correct at the end of the procedure. The patient tolerated the procedure well. He was transferred to a hospital bed and transported to the ICU (per protocol) in stable condition.
[2020-02-27] MEDS: PROPOFOL 1,000 MG in EMPTY BAG 1 BAG IV SCH ×2 (18:00→22:23)
[2020-02-27 18:09] LABS: Glucose,Whole Blood 128 mg/dL (75-99)
--- NOTE | 2020-02-27 18:13 | XR ---
EXAMINATION TYPE: XR Hip Limited RT, FL guidance operating room DATE OF EXAM: 02/27/2020 Comparison: 02/23/2020 Clinical History: 74-year-old male Right hip pinning Findings: 4 fluoroscopic images demonstrating percutaneous pinning across the right femoral neck. FLUOROSCOPY Fluoroscopy time of 3 minutes 12 seconds was used during right hip pinning. 4 image/s document/s the procedure. Impression: Intraoperative fluoroscopy as above.
[2020-02-27 18:21] LABS: Anisocytosis Slight; Basophils % (A) 0 %; Eosinophils # (A) 0.1 k/uL (0-0.7); Eosinophils % (A) 1 %; HCT 33.2 % (39.0-53.0); HGB 9.5 gm/dL (13.0-17.5); Hypochromasia Marked; Lymphocytes % (A) 10 %; MCH 24.7 pg (25.0-35.0); MCHC 28.7 g/dL (31.0-37.0); MCV 86.4 fL (80.0-100.0); Mean Platelet Volume 10.3; Monocytes # (A) 0.7 k/uL (0-1.0); Monocytes % (A) 7 %; Neutrophils # (A) 7.5 k/uL (1.3-7.7); Neutrophils % (A) 77 %; Platelet Count 201 k/uL (150-450); Poikilocytosis Slight; RBC 3.85 m/uL (4.30-5.90); RDW 17.2 % (11.5-15.5); WBC 9.7 k/uL (3.8-10.6)
[2020-02-27 18:44] LABS: ABG Base Excess -0.4 mmol/L; ABG HCO3 25 mmol/L (21-25); ABG PCO2 47 mmHg (35-45); ABG PH 7.34 (7.35-7.45); ABG PO2 317 mmHg (83-108); ABG TCO2 27 mmol/L (19-24); Allen Test Performed? Yes
--- NOTE | 2020-02-27 18:46 | XR ---
EXAMINATION TYPE: XR chest 1V portable DATE OF EXAM: 02/27/2020 Comparison: 02/27/2020, earlier today Clinical History: 74-year-old male Tube placement Findings: The ET tube is satisfactory, located 3.5 cm from the ion. NG tube courses below the diaphragm. The sidehole is at the level of the GE junction and should be further advanced into the stomach. Heart m ildly enlarged. Atherosclerotic arch calcifications. Patchy interstitial and airspace opacities with improving aeration right mid and lower lung. Probable trace right effusion. Impression: 1. Satisfactory ET tube. The NG tube sidehole is at the level of the GE junction and can be further a dvanced into the stomach. 2. Cardiomegaly with improving aeration at the right mid and lower lung and residual interstitial inf iltrates. Consider improving pulmonary edema given the rapid change.
--- NOTE | 2020-02-27 20:22 | XR ---
EXAMINATION TYPE: XR Hip RT and AP Pelvis DATE OF EXAM: 02/27/2020 COMPARISON: NONE HISTORY: Hip pinning TECHNIQUE: 3 views FINDINGS: The pelvic ring is intact. There are 3 screws fixing a subcapital fracture of the right fem oral neck. Fragments are in anatomic position. Joint spaces are fairly normal. Sacroiliac joints are intact. IMPRESSION: No complicating process seen.
[2020-02-27 20:54] LABS: Glucose,Whole Blood 197 mg/dL (75-99)
[2020-02-27] MEDS: CHLORHEXIDINE GLUCONATE 15 ML CUP MUCOUS MEM SCH (21:00)
[2020-02-27] MEDS: INSULIN DETEMIR (LEVEMIR) 100 UNIT/ML SYR SQ SCH (21:00)
[2020-02-27] MEDS: ATORVASTATIN 20 MG TAB PO SCH (21:00)
[2020-02-27] MEDS: DOCUSATE ORAL SOLN 100 MG/10 ML CUP PO SCH (21:34)
[2020-02-27] MEDS: hydrALAZINE HCL 20 MG/ML 1 ML VIAL IVP PRN (23:05)
[2020-02-27 23:41] LABS: Glucose,Whole Blood 130 mg/dL (75-99)
[2020-02-28] MEDS: HYDROmorphone 0.5 MG/0.5 ML SYRINGE IVP PRN ×3 (01:06→21:47)
[2020-02-28] MEDS: PROPOFOL 1,000 MG in EMPTY BAG 1 BAG IV SCH ×3 (03:36→14:40)
[2020-02-28] MEDS: LACTATED RINGERS 1,000 ML IV SCH (03:36)
[2020-02-28] MEDS: INSULIN ASPART (NovoLOG) 100 UNIT/ML VIAL SQ SCH ×5 (03:52→19:46)
[2020-02-28 03:59] LABS: Glucose,Whole Blood 72 mg/dL (75-99)
[2020-02-28 05:42] LABS: Calcium 7.9 mg/dL (8.4-10.2); Potassium 2.8 mmol/L (3.5-5.1)
--- NOTE | 2020-02-28 06:37 | XR ---
EXAMINATION TYPE: XR chest 1V portable DATE OF EXAM: 02/28/2020 HISTORY: Tube placement. REFERENCE: Previous study dated 02/27/2020. FINDINGS: The patient's ET tube and NG tube remain in place, unchanged in appearance. There is worsening opacity of the right lung. There is an enlarging right effusion. Heart size is lar daya obscured. The left lung is relatively clear. IMPRESSION: WORSENING RIGHT-SIDED AIRSPACE DISEASE WITH A CONCOMITANT EFFUSION.
[2020-02-28] MEDS ORDERED: Potassium Replacement Protocol 1 EACH MISC MISCELLANE PRN (06:40)
[2020-02-28] MEDS ORDERED: POTASSIUM BICARBONATE/CIT AC 20 MEQ TABLET.EFF NG-TUBE SCH (07:00)
[2020-02-28] MEDS ORDERED: POTASSIUM BICARBONATE/CIT AC 20 MEQ TABLET.EFF PO ONE ×2 (07:00→08:00)
[2020-02-28] MEDS ORDERED: DEXTROSE 50% SYRINGE 50 ML IVP ONE (07:34)
[2020-02-28 07:35] LABS: Glucose,Whole Blood 52 mg/dL (75-99)
[2020-02-28] MEDS ORDERED: DEXTROSE 50% SYRINGE 50 ML IVP STA (07:36)
[2020-02-28 07:42] LABS: Anisocytosis Slight; Basophils % (A) 0 %; Eosinophils # (A) 0.1 k/uL (0-0.7); Eosinophils % (A) 2 %; HCT 26.5 % (39.0-53.0); Hypochromasia Marked; Lymphocytes # (A) 0.5 k/uL (1.0-4.8); Lymphocytes % (A) 7 %; MCH 25.2 pg (25.0-35.0); Mean Platelet Volume 10.4; Monocytes # (A) 0.7 k/uL (0-1.0); Monocytes % (A) 10 %; Neutrophils # (A) 5.6 k/uL (1.3-7.7); Neutrophils % (A) 77 %; Platelet Count 170 k/uL (150-450); Poikilocytosis Slight; RBC 3.15 m/uL (4.30-5.90); RDW 18.2 % (11.5-15.5); WBC 7.3 k/uL (3.8-10.6)
[2020-02-28 07:55] LABS: Glucose,Whole Blood 86 mg/dL (75-99)
[2020-02-28 08:19] LABS: ABG Base Excess 5.4 mmol/L; ABG HCO3 29 mmol/L (21-25); ABG PCO2 41 mmHg (35-45); ABG PH 7.47 (7.35-7.45); ABG PO2 117 mmHg (83-108); ABG TCO2 30 mmol/L (19-24); Allen Test Performed? Yes
[2020-02-28] MEDS: ISOSORBIDE MONONITRATE ER 30 MG TAB.ER.24H PO SCH (08:53)
[2020-02-28] MEDS: TAMSULOSIN 0.4 MG CAP.ER.24H PO SCH (08:53)
[2020-02-28] MEDS: buPROPion XL 150 MG TAB.ER.24H PO SCH (08:54)
[2020-02-28] MEDS: TIOTROPIUM 18 MCG/PUFF INHALER INHALATION SCH (09:04)
[2020-02-28] MEDS: ENOXAPARIN 30 MG/0.3 ML SYRINGE SQ SCH (09:13)
[2020-02-28] MEDS: CHLORHEXIDINE GLUCONATE 15 ML CUP MUCOUS MEM SCH ×2 (09:13→20:21)
[2020-02-28] MEDS: PANTOPRAZOLE 40 MG/10 ML VIAL IVP SCH (09:13)
[2020-02-28] MEDS: SENNOSIDES-DOCUSATE SODIUM 1 EACH TAB PO SCH ×2 (09:13→20:21)
[2020-02-28] MEDS: FUROSEMIDE 10 MG/ML 4 ML VIAL IV SCH (09:14)
[2020-02-28] MEDS: DOCUSATE ORAL SOLN 100 MG/10 ML CUP PO SCH ×2 (09:17→20:21)
[2020-02-28] MEDS: LIDOCAINE 5% PATCH TOPICAL SCH (09:17)
[2020-02-28] MEDS: ALBUTEROL HFA INHALER INHALATION SCH (09:18)
[2020-02-28] MEDS: ESCITALOPRAM 10 MG TAB PO SCH (09:20)
[2020-02-28] MEDS: LINAGLIPTIN 5 MG TABLET PO SCH (09:20)
--- NOTE | 2020-02-28 11:42 | P.PN ---
Subjective Progress Note Date: 02/28/20 Principal diagnosis: 74-year-old male patient that was [facility] for the subacute rehab. He suffered a right hip fracture and multiple skin tears and abrasions from a fall while taking a shower. Past medical history this gentleman is his hyperlipidemia severe pulmonary hypertension, hypertension, type 2 diabetes, COPD, former smoker, chronic renal insufficiency, recent pneumonia, and early dementia. He scored 11 out of 30 in the [place] cognitive scoring completed at [facility]. 02/28/2020 patient is postop day 1 from in-situ screw fixation of nondisplaced right transcervical femoral neck fracture. He is currently on the ventilator with FiO2 50% and is on sedation with propofol at 35 mics per kilo per minute. Last of which was 99.2 orally her rate was 62 respiratory rate of 16 blood pressure of 1.5 or 56 maintain oxygen saturation 97% while percent on the ventilator. Latest labs WBC is 7.3 hemoglobin of 8.0 hematocrit of 26.5, platelet count of 170. Chemistry revealed a sodium 1:30 potassium 2.8 chloride 102 174 creatinine of 2.1 glucose 52. Obspr-hp-urso glucose was 52 at some point for this morning received have amp D50 and brought him up to 86. Treatment for the potassium of 2.8 was treated with potassium supplement. Objective - Vital Signs Vital signs: Vital Signs Temp 99.2 F 02/28/20 08:00 Pulse 63 02/28/20 09:00 Resp 18 02/28/20 09:00 BP 115/55 02/28/20 09:00 Pulse Ox 99 02/28/20 09:00 Intake & Output 02/27/20 02/28/20 02/28/20 18:59 06:59 18:59 Intake Total 570 500.387 145.265 Output Total 1260 1190 265 Balance -690 -689.613 -119.735 Weight 67.9 kg 67.9 kg Intake: IV 570 240 60 Lactated Ringers 1,000 ml 20 240 60 @ 20 mls/hr IV .Q24H JN Rx#:[id number] Intake, IV Titration 195.387 85.265 Amount Propofol 1,000 mg In 145.387 85.265 Empty Bag 1 bag @ Titrate IV .Q0M JN Rx#: [id number] ceFAZolin 2 gm In Sodium 50 Chloride 0.9% 50 ml @ 100 mls/hr IVPB Q8H [facility] Rx#: [id number] Other 65 Output: Urine 1250 1190 265 Uretheral (Orellana) 350 Estimated Blood Loss 10 Other: Voiding Method Indwelling Catheter Indwelling Catheter - Exam GENERAL: Well-appearing, well-nourished and in no acute distress. HEAD: Atraumatic, normocephalic. EYES: Pupils equal round and reactive to light, extraocular movements intact, sclera anicteric, conjunctiva are normal. ENT:nares patent, oropharynx clear without exudates. Moist mucous membranes. NECK: Normal range of motion, supple without lymphadenopathy or JVD, no thyromegaly LUNGS: Breath sounds noted with rhonchi bilateral. HEART: Regular rate and rhythm without murmurs, rubs or gallops.S1S2 Normal ABDOMEN: Soft, nontender, normoactive bowel sounds. No guarding, no rebound. No masses appreciated. EXTREMITIES: no pitting or edema. No clubbing or cyanosis. NEUROLOGICAL: Pupils equal and reactive to light not following commands as patient is sedated PSYCH: Normal mood, normal affect. SKIN: Warm, Dry, numerous skin tears and abrasions, right hip incision covered with dressing. - Labs CBC & Chem 7: 02/28/20 04:33 02/28/20 04:33 Labs: Abnormal Lab Results - Last 24 Hours (Table) 02/27/20 02/27/20 02/27/20 Range/Units 12:17 15:50 18:07 RBC 3.85 L (4.30-5.90) m/uL Hgb 9.5 L (13.0-17.5) gm/dL Hct 33.2 L (39.0-53.0) % MCH 24.7 L (25.0-35.0) pg MCHC 28.7 L (31.0-37.0) g/dL RDW 17.2 H (11.5-15.5) % Lymphocytes # (1.0-4.8) k/uL ABG pH (7.35-7.45) ABG pCO2 (35-45) mmHg ABG pO2 (83-108) mmHg ABG HCO3 (21-25) mmol/L ABG Total CO2 (19-24) mmol/L ABG O2 Saturation (94-97) % Potassium (3.5-5.1) mmol/L BUN (9-20) mg/dL Creatinine (0.66-1.25) mg/dL Glucose (74-99) mg/dL POC Glucose (mg/dL) 193 H 128 H (75-99) mg/dL Calcium (8.4-10.2) mg/dL 02/27/20 02/27/20 02/27/20 Range/Units 18:40 20:52 23:40 RBC (4.30-5.90) m/uL Hgb (13.0-17.5) gm/dL Hct (39.0-53.0) % MCH (25.0-35.0) pg MCHC (31.0-37.0) g/dL RDW (11.5-15.5) % Lymphocytes # (1.0-4.8) k/uL ABG pH 7.34 L (7.35-7.45) ABG pCO2 47 H (35-45) mmHg ABG pO2 317 H (83-108) mmHg ABG HCO3 (21-25) mmol/L ABG Total CO2 27 H (19-24) mmol/L ABG O2 Saturation 100.0 H (94-97) % Potassium (3.5-5.1) mmol/L BUN (9-20) mg/dL Creatinine (0.66-1.25) mg/dL Glucose (74-99) mg/dL POC Glucose (mg/dL) 197 H 130 H (75-99) mg/dL Calcium (8.4-10.2) mg/dL 02/28/20 02/28/20 02/28/20 Range/Units 03:48 04:33 04:33 RBC 3.15 L (4.30-5.90) m/uL Hgb 8.0 L D (13.0-17.5) gm/dL Hct 26.5 L (39.0-53.0) % MCH (25.0-35.0) pg MCHC 30.0 L (31.0-37.0) g/dL RDW 18.2 H (11.5-15.5) % Lymphocytes # 0.5 L (1.0-4.8) k/uL ABG pH (7.35-7.45) ABG pCO2 (35-45) mmHg ABG pO2 (83-108) mmHg ABG HCO3 (21-25) mmol/L ABG Total CO2 (19-24) mmol/L ABG O2 Saturation (94-97) % Potassium 2.8 L (3.5-5.1) mmol/L BUN 74 H (9-20) mg/dL Creatinine 2.81 H (0.66-1.25) mg/dL Glucose 52 L (74-99) mg/dL POC Glucose (mg/dL) 72 L (75-99) mg/dL Calcium 7.9 L (8.4-10.2) mg/dL 02/28/20 02/28/20 Range/Units 07:34 08:17 RBC (4.30-5.90) m/uL Hgb (13.0-17.5) gm/dL Hct (39.0-53.0) % MCH (25.0-35.0) pg MCHC (31.0-37.0) g/dL RDW (11.5-15.5) % Lymphocytes # (1.0-4.8) k/uL ABG pH 7.47 H (7.35-7.45) ABG pCO2 (35-45) mmHg ABG pO2 117 H (83-108) mmHg ABG HCO3 29 H (21-25) mmol/L ABG Total CO2 30 H (19-24) mmol/L ABG O2 Saturation 99.0 H (94-97) % Potassium (3.5-5.1) mmol/L BUN (9-20) mg/dL Creatinine (0.66-1.25) mg/dL Glucose (74-99) mg/dL POC Glucose (mg/dL) 52 L (75-99) mg/dL Calcium (8.4-10.2) mg/dL Assessment and Plan (1) Pulmonary hypertension, moderate to severe Current Visit: Yes Status: Acute Code(s): I27.20 - PULMONARY HYPERTENSION, UNSPECIFIED SNOMED Code(s): 15286236 (2) COVID-19 Current Visit: Yes Status: Acute Code(s): U07.1 - COVID-19 SNOMED Code(s): 258773442 (3) Closed right hip fracture Current Visit: Yes Status: Acute Code(s): S72.001A - FRACTURE OF UNSP PART OF NECK OF RIGHT FEMUR, INIT SNOMED Code(s): 802850450 (4) Fall Current Visit: Yes Status: Acute Code(s): W19.XXXA - UNSPECIFIED FALL, INITIAL ENCOUNTER SNOMED Code(s): 0487882 (5) Chronic renal failure Current Visit: No Status: Acute Code(s): N18.9 - CHRONIC KIDNEY DISEASE, UNSPECIFIED SNOMED Code(s): 07801573 (6) Cognitive impairment Current Visit: No Status: Acute Code(s): R41.89 - OTH SYMPTOMS AND SIGNS W COGNITIVE FUNCTIONS AND AWARENESS SNOMED Code(s): 182420557 (7) Diabetes mellitus Current Visit: No Status: Acute Code(s): E11.9 - TYPE 2 DIABETES MELLITUS WITHOUT COMPLICATIONS SNOMED Code(s): 87562247 (8) Elevated troponin I level Current Visit: No Status: Acute Code(s): R79.89 - OTHER SPECIFIED ABNORMAL FINDINGS OF BLOOD CHEMISTRY SNOMED Code(s): 347602750 (9) Hyperlipidemia Current Visit: No Status: Acute Code(s): E78.5 - HYPERLIPIDEMIA, UNSPECIFIED SNOMED Code(s): 82188447 (10) Hypertension Current Visit: No Status: Acute Code(s): I10 - ESSENTIAL (PRIMARY) HYPERTENSION SNOMED Code(s): 68242510 (11) Respiratory distress Current Visit: No Status: Acute Code(s): R06.03 - ACUTE RESPIRATORY DISTRESS SNOMED Code(s): 879472346 Plan: Continue to monitor renal function 2. Maintain Orellana catheter at this time 3. Continue with IV Lasix daily 4. Coumadin 19 positive will follow pulmonary recommendations 5. We'll reassess patient tomorrow 6. Will check lytes and magnesium Time with Patient: Greater than 30
--- NOTE | 2020-02-28 11:42 | P.PN ---
Subjective Progress Note Date: 02/28/20 Follow-up for acute kidney injury. Good urine output. On ventilator with minimal settings. Objective - Vital Signs Vital signs: Vital Signs Temp 99.2 F 02/28/20 08:00 Pulse 63 02/28/20 09:00 Resp 18 02/28/20 09:00 BP 115/55 02/28/20 09:00 Pulse Ox 99 02/28/20 09:00 Intake & Output 02/27/20 02/28/20 02/28/20 18:59 06:59 18:59 Intake Total 570 500.387 145.265 Output Total 1260 1190 265 Balance -690 -689.613 -119.735 Weight 67.9 kg 67.9 kg Intake: IV 570 240 60 Lactated Ringers 1,000 ml 20 240 60 @ 20 mls/hr IV .Q24H [facility] Rx#:[id number] Intake, IV Titration 195.387 85.265 Amount Propofol 1,000 mg In 145.387 85.265 Empty Bag 1 bag @ Titrate IV .Q0M [facility] Rx#: [id number] ceFAZolin 2 gm In Sodium 50 Chloride 0.9% 50 ml @ 100 mls/hr IVPB Q8H [facility] Rx#: [id number] Other 65 Output: Urine 1250 1190 265 Uretheral (Orellana) 350 Estimated Blood Loss 10 Other: Voiding Method Indwelling Catheter Indwelling Catheter - Exam Limited exam secondary to COVID pandemic and to limit PPE. - Labs CBC & Chem 7: 02/28/20 04:33 02/28/20 04:33 Labs: Abnormal Lab Results - Last 24 Hours (Table) 02/27/20 02/27/20 02/27/20 Range/Units 12:17 15:50 18:07 RBC 3.85 L (4.30-5.90) m/uL Hgb 9.5 L (13.0-17.5) gm/dL Hct 33.2 L (39.0-53.0) % MCH 24.7 L (25.0-35.0) pg MCHC 28.7 L (31.0-37.0) g/dL RDW 17.2 H (11.5-15.5) % Lymphocytes # (1.0-4.8) k/uL ABG pH (7.35-7.45) ABG pCO2 (35-45) mmHg ABG pO2 (83-108) mmHg ABG HCO3 (21-25) mmol/L ABG Total CO2 (19-24) mmol/L ABG O2 Saturation (94-97) % Potassium (3.5-5.1) mmol/L BUN (9-20) mg/dL Creatinine (0.66-1.25) mg/dL Glucose (74-99) mg/dL POC Glucose (mg/dL) 193 H 128 H (75-99) mg/dL Calcium (8.4-10.2) mg/dL 02/27/20 02/27/20 02/27/20 Range/Units 18:40 20:52 23:40 RBC (4.30-5.90) m/uL Hgb (13.0-17.5) gm/dL Hct (39.0-53.0) % MCH (25.0-35.0) pg MCHC (31.0-37.0) g/dL RDW (11.5-15.5) % Lymphocytes # (1.0-4.8) k/uL ABG pH 7.34 L (7.35-7.45) ABG pCO2 47 H (35-45) mmHg ABG pO2 317 H (83-108) mmHg ABG HCO3 (21-25) mmol/L ABG Total CO2 27 H (19-24) mmol/L ABG O2 Saturation 100.0 H (94-97) % Potassium (3.5-5.1) mmol/L BUN (9-20) mg/dL Creatinine (0.66-1.25) mg/dL Glucose (74-99) mg/dL POC Glucose (mg/dL) 197 H 130 H (75-99) mg/dL Calcium (8.4-10.2) mg/dL 02/28/20 02/28/20 02/28/20 Range/Units 03:48 04:33 04:33 RBC 3.15 L (4.30-5.90) m/uL Hgb 8.0 L D (13.0-17.5) gm/dL Hct 26.5 L (39.0-53.0) % MCH (25.0-35.0) pg MCHC 30.0 L (31.0-37.0) g/dL RDW 18.2 H (11.5-15.5) % Lymphocytes # 0.5 L (1.0-4.8) k/uL ABG pH (7.35-7.45) ABG pCO2 (35-45) mmHg ABG pO2 (83-108) mmHg ABG HCO3 (21-25) mmol/L ABG Total CO2 (19-24) mmol/L ABG O2 Saturation (94-97) % Potassium 2.8 L (3.5-5.1) mmol/L BUN 74 H (9-20) mg/dL Creatinine 2.81 H (0.66-1.25) mg/dL Glucose 52 L (74-99) mg/dL POC Glucose (mg/dL) 72 L (75-99) mg/dL Calcium 7.9 L (8.4-10.2) mg/dL 02/28/20 02/28/20 Range/Units 07:34 08:17 RBC (4.30-5.90) m/uL Hgb (13.0-17.5) gm/dL Hct (39.0-53.0) % MCH (25.0-35.0) pg MCHC (31.0-37.0) g/dL RDW (11.5-15.5) % Lymphocytes # (1.0-4.8) k/uL ABG pH 7.47 H (7.35-7.45) ABG pCO2 (35-45) mmHg ABG pO2 117 H (83-108) mmHg ABG HCO3 29 H (21-25) mmol/L ABG Total CO2 30 H (19-24) mmol/L ABG O2 Saturation 99.0 H (94-97) % Potassium (3.5-5.1) mmol/L BUN (9-20) mg/dL Creatinine (0.66-1.25) mg/dL Glucose (74-99) mg/dL POC Glucose (mg/dL) 52 L (75-99) mg/dL Calcium (8.4-10.2) mg/dL Assessment and Plan Assessment: #1 nonoliguric acute kidney injury secondary to ATN/CRS. #2 chronic kidney disease stage III with a baseline creatinine of 1.6-2.0 MG per DL. #3: Positive #4 acute blood loss anemia #5 ventilator dependent respiratory failure #6 diastolic CHF with severe pulmonary hypertension #7 hypokalemia secondary to diuretic use Plan: #1 continue with Lasix 40 mg IV daily. #2 renal function stable and improving. #3 electrolyte replacement as per protocol check magnesium in the morning #4 avoid nephrotoxic agents and hypotensive episodes.
--- NOTE | 2020-02-28 12:21 | XR ---
EXAMINATION TYPE: XR chest 1V portable DATE OF EXAM: 02/28/2020 HISTORY: s/p line placement. REFERENCE: Previous study of earlier today. FINDINGS: The patient's ET tube and NG tube remain in place, unchanged in appearance. A left subclavi an catheter is been inserted and is tip is at the cavoatrial junction. The heart is enlarged. There is continuing right basilar airspace disease. I suspect a small right ef fusion. IMPRESSION: SATISFACTORY CATHETER PLACEMENT.
[2020-02-28 12:54] LABS: Glucose,Whole Blood 43 mg/dL (75-99)
[2020-02-28 12:54] LABS: Glucose,Whole Blood 65 mg/dL (75-99)
--- NOTE | 2020-02-28 12:59 | P.PN ---
Progress Note - Text Progress Note Date: 02/28/20 Orthopedics: History of present illness: Patient is a 74-year-old male who is seen and examined in the ICU for follow-up evaluation in regards to his right. Patient is status post right in situ screw fixation for nondisplaced right transcervical femoral neck fracture. Patient is known to have tested positive for Covid-19. He is currently on a mechanical vent in the ICU. Patient does not have multiple medical comorbidities including COPD, heart failure, and acute on chronic kidney disease. Physical Exam: Patient is on a mechanical vent and is currently sedated resting quietly Inspection of the dressing over the right hip at the surgical site shows 1 small area of dried blood No significant active drainage from the surgical site Evidence of a lidocaine patch intact over the left groin. Pneumatic cuffs intact bilateral lower extremities Orellana catheter intact Assessment: Status post right in situ screw fixation for nondisplaced right transcervical femoral neck fracture Covid-19 positive currently on ventilator COPD Heart failure Acute on chronic kidney disease Plan: 1. Patient was admitted to orthopedic services at the time of his admission. Patient has tested positive for Covid is currently on a mechanical vent per Covid protocol postoperatively. Patient has been discussed in detail with Dr. Juan Angel. At this time, we plan to transfer admit status to medicine. Patient continues to be sedated with mechanical vent intact. If the patient is able to be extubated, he may touchdown weightbearing on the right lower extremity. We will continue to follow patient closely. Once the patient is clear for discharge by multiple medical providers, we will plan have the patient follow up with Dr. Juan Angel in approximately 2 weeks for further june luation in the outpatient setting at [facility]. 2. Patient will continue with with further treatment and evaluation by multiple medical providers including medicine, pulmonology, and nephrology
[2020-02-28] MEDS: METOPROLOL TARTRATE 50 MG TAB PO SCH ×2 (13:07→20:22)
--- NOTE | 2020-02-28 13:13 | P.PN ---
Subjective Progress Note Date: 02/28/20 Principal diagnosis: This is a pleasant 74-year-old male past medical history significant for diastolic heart failure, COPD on home oxygen, diabetes mellitus, hypertensio n and dyslipidemia. He denies prior history of coronary artery disease and does not follow in the office with a webbing seamer pound net. We have been asked to see in consultation for preoperative evaluation. He is currently residing at [facility] and suffered a fall in the shower last night sustaining a nondisplaced right femoral neck fracture. He has been seen in evaluation by orthopedic surgery and is scheduled to undergo surgical repair tomorrow morning. He is seen and examined sitting up in bed in mild respiratory distress. He states he has been having ongoing shortness of breath since his previous admission in November. At that time he was treated for acute exacerbation of diastolic heart failure. Chest x-rays obtained on this admission revealed pleural effusion and pulmonary edema worsened compared to November chest x-rays. EKG reveals sinus mechanism with heart rate of 71. Laboratory data reviewed. Covid 19 positive, hemoglobin 6.9, platelets 174, sodium 138, potassium 4.2, creatinine 3.51 with a GFR 16, troponin 0.047 and 0.054 and NT proBNP 25,000. He has been initiated on IV lasix per nephrology and has PRBC infusing currently. He has a healy in place with bright red blood noted in the tubing and drainage bag. Most recent echocardiogram obtained 11/2019 reveals preserved LV systolic function with ejection fraction 50-55%, grade 2 diastolic dysfunction, mild aortic regurgitation, mild aortic stenosis with a mean gradient of 14 mmHg, moderate mitral regurgitation, moderate to severe tricuspid regurgitation and severe pulmonary hypertension with an RVSP of 67 mmHg. Current daily cardiac medications includeaspirin 81 mg daily, Imdur 30 mg daily, atorvastatin 20 mg daily, lisinopril 10 mg daily, Lasix 40 mg twice a day, Lopressor 50 mg twice a day and hydralazine 25 mg 3 times a day. POD #1 in situ screw fixation of nondisplaced right transcervical femoral neck fracture performed by Dr. Angel. On 02/28/2020 the patient was seen in follow-up at his bedside intensive care unit. He remains sedated on propofol drip and is intubated with mechanical v entilator support. His oxygen saturation are 97% with 50% FiO2 support. Bedside telemetry showing normal sinus rhythm heart rate 64. A chest x-ray was completed this morning which demonstrates an ET tube and NG tube in place, left subclavian catheter in place, enlarged heart and continued right basilar airspace disease with a small right pleural effusion. Laboratory results this morning show a WBC count 7.3, hemoglobin 8.0, hematocrit 26.5, platelets 170, potassium 2.8, BUN 74 and creatinine 2.81. He is a Healy catheter in place for accurate I&O with 565 mL output in the last 8 hours and his 24-hour I's and O showed a negative balance of -1.3 L. He continues to receive Lasix, atorvasta tin, and metoprolol. Objective - Vital Signs Vital signs: Vital Signs Temp 97.9 F 02/28/20 12:00 Pulse 65 02/28/20 12:00 Resp 16 02/28/20 12:00 BP 122/59 02/28/20 12:00 Pulse Ox 97 02/28/20 12:00 Intake & Output 02/27/20 02/28/20 02/28/20 18:59 06:59 18:59 Intake Total 570 500.387 205.265 Output Total 1260 1190 565 Balance -690 -689.613 -359.735 Weight 67.9 kg 67.9 kg Intake: IV 570 240 120 Lactated Ringers 1,000 ml 20 240 120 @ 20 mls/hr IV .Q24H [facility] Rx#:[id number] Intake, IV Titration 195.387 85.265 Amount Propofol 1,000 mg In 145.387 85.265 Empty Bag 1 bag @ Titrate IV .Q0M [facility] Rx#: [id number] ceFAZolin 2 gm In Sodium 50 Chloride 0.9% 50 ml @ 100 mls/hr IVPB Q8H [facility] Rx#: [id number] Other 65 Output: Urine 1250 1190 565 Uretheral (Healy) 350 Estimated Blood Loss 10 Other: Voiding Method Indwelling Catheter Indwelling Catheter - Exam This is 74-year-old gentleman who remains sedated, intubated with mechanical ventilator support. He is in no acute distress. - EENT EENT Comment(s): Atraumatic, normocephalic Eyes: Present: PERRLA - Neck Details: Neck supple, no JVD. - Respiratory Details: Lung sounds with few scattered rhonchi throughout, diminished to his bilateral bases. Respirations are symmetrical and nonlabored with mechanical ventilator support. - Cardiovascular Details: Regular rhythm and rate. S1 and S2 present, negative for S3, or gallop. Systolic ejection murmur at the base and apex. - Gastrointestinal Gastrointestinal Comment(s): Abdomen soft, and nondistended. Normoactive bowel sounds. No guarding or rigidity. No organomegaly appreciated. - Integumentary Integumentary Comment(s): Skin is warm and dry. Right hip incision with dressing clean, dry and intact. - Neurologic Neurologic Comment(s): Remains sedated on propofol drip. - Allied health notes Allied health notes reviewed: nursing - Labs CBC & Chem 7: 02/28/20 04:33 02/28/20 04:33 Labs: Abnormal Lab Results - Last 24 Hours (Table) 02/27/20 02/27/20 02/27/20 Range/Units 15:50 18:07 18:40 RBC 3.85 L (4.30-5.90) m/uL Hgb 9.5 L (13.0-17.5) gm/dL Hct 33.2 L (39.0-53.0) % MCH 24.7 L (25.0-35.0) pg MCHC 28.7 L (31.0-37.0) g/dL RDW 17.2 H (11.5-15.5) % Lymphocytes # (1.0-4.8) k/uL ABG pH 7.34 L (7.35-7.45) ABG pCO2 47 H (35-45) mmHg ABG pO2 317 H (83-108) mmHg ABG HCO3 (21-25) mmol/L ABG Total CO2 27 H (19-24) mmol/L ABG O2 Saturation 100.0 H (94-97) % Potassium (3.5-5.1) mmol/L BUN (9-20) mg/dL Creatinine (0.66-1.25) mg/dL Glucose (74-99) mg/dL POC Glucose (mg/dL) 128 H (75-99) mg/dL Calcium (8.4-10.2) mg/dL 02/27/20 02/27/20 02/28/20 Range/Units 20:52 23:40 03:48 RBC (4.30-5.90) m/uL Hgb (13.0-17.5) gm/dL Hct (39.0-53.0) % MCH (25.0-35.0) pg MCHC (31.0-37.0) g/dL RDW (11.5-15.5) % Lymphocytes # (1.0-4.8) k/uL ABG pH (7.35-7.45) ABG pCO2 (35-45) mmHg ABG pO2 (83-108) mmHg ABG HCO3 (21-25) mmol/L ABG Total CO2 (19-24) mmol/L ABG O2 Saturation (94-97) % Potassium (3.5-5.1) mmol/L BUN (9-20) mg/dL Creatinine (0.66-1.25) mg/dL Glucose (74-99) mg/dL POC Glucose (mg/dL) 197 H 130 H 72 L (75-99) mg/dL Calcium (8.4-10.2) mg/dL 02/28/20 02/28/20 02/28/20 Range/Units 04:33 04:33 07:34 RBC 3.15 L (4.30-5.90) m/uL Hgb 8.0 L D (13.0-17.5) gm/dL Hct 26.5 L (39.0-53.0) % MCH (25.0-35.0) pg MCHC 30.0 L (31.0-37.0) g/dL RDW 18.2 H (11.5-15.5) % Lymphocytes # 0.5 L (1.0-4.8) k/uL ABG pH (7.35-7.45) ABG pCO2 (35-45) mmHg ABG pO2 (83-108) mmHg ABG HCO3 (21-25) mmol/L ABG Total CO2 (19-24) mmol/L ABG O2 Saturation (94-97) % Potassium 2.8 L (3.5-5.1) mmol/L BUN 74 H (9-20) mg/dL Creatinine 2.81 H (0.66-1.25) mg/dL Glucose 52 L (74-99) mg/dL POC Glucose (mg/dL) 52 L (75-99) mg/dL Calcium 7.9 L (8.4-10.2) mg/dL 02/28/20 Range/Units 08:17 RBC (4.30-5.90) m/uL Hgb (13.0-17.5) gm/dL Hct (39.0-53.0) % MCH (25.0-35.0) pg MCHC (31.0-37.0) g/dL RDW (11.5-15.5) % Lymphocytes # (1.0-4.8) k/uL ABG pH 7.47 H (7.35-7.45) ABG pCO2 (35-45) mmHg ABG pO2 117 H (83-108) mmHg ABG HCO3 29 H (21-25) mmol/L ABG Total CO2 30 H (19-24) mmol/L ABG O2 Saturation 99.0 H (94-97) % Potassium (3.5-5.1) mmol/L BUN (9-20) mg/dL Creatinine (0.66-1.25) mg/dL Glucose (74-99) mg/dL POC Glucose (mg/dL) (75-99) mg/dL Calcium (8.4-10.2) mg/dL - Imaging and Cardiology Chest x-ray: report reviewed, image reviewed Assessment and Plan Assessment: 1. Acute on chronic diastolic heart failure 2. Acute on chronic kidney disease 3. Right femoral neck fracture s/p fall in the shower, status post in situ screw fixation of nondisplaced right transcervical femoral neck fracture 4. COVID 19 5. Anemia 6. COPD on home oxygen 7. Diabetes mellitus 8. Hypertension 9. Dyslipidmeia 10. Valvular heart disease 11. Pulmonary hypertension Plan: 1. Continue diuretics, electrolyte replacement per protocol. Chest x-ray shows CHF is improving today. 2. Discontinue Imdur, as the patient is unable to swallow. Start nitroglycerin paste 1 inch topical every 8 hours. 3. Continue to follow daily labs and chest x-rays. 4. More recommendations to follow based on patient's clinical course. Nurse practitioner note has been reviewed, I agree with a documented findings and plan of care. Patient was seen and examined. Time with Patient: Less than 30
[2020-02-28 13:34] LABS: Glucose,Whole Blood 88 mg/dL (75-99)
--- NOTE | 2020-02-28 13:52 | P.PN ---
Subjective Progress Note Date: 02/28/20 Principal diagnosis: Right femoral neck fracture Covid the 19 pneumonitis This is a very pleasant 74-year-old gentleman who follows with Dr. Akhtar as his primary care provider. He is a history of diabetes mellitus, type II, hypertension, hyperlipidemia, anxiety, previous chronic tobacco dependence and chronic obstructive pulmonary disease, on home oxygen at 2 L. He had recently in November 2019 been admitted for an acute exacerbation of chronic congestive heart failure secondary to diastolic dysfunction. He was subsequent discharged to [facility] on the [facility] where he has been staying for rehabilitation. Last evening he was brought to the emergency room after sustaining a fall in the shower. He had multiple abrasions on his skin. Laceration to the right ear requiring sutures,, trauma to the right chest and a nondisplaced right femoral neck fracture. Computed tomography scan of the brain and C-spine revealed no acute intracranial abnormalities. No cervical spine fractures. He had been seen and evaluated by orthopedic surgery and were considering repair of the right hip fracture. We have been asked to consult for preoperative clearance. He is seen today in consultation on the regular medical floor. He is currently awake and alert in no acute distress. He is maintaining O2 saturation in the low 90s on 4 L/m per nasal cannula. Chest x-ray showed evidence of congestive heart failure with pleural effusions and pulmonary edema which is worse compared to previous in November 2019. White count 10.0. Hemoglobin 6.9. Platelet count 174. Lymphocytes 0.4. INR 1.2. Sodium 138. Potassium 4.2. Bicarb 14. Creatinine 3.51. Glucose 146. AST 83. ALT 121. Troponin 0.047, 0.054. ProBNP 25,000. Coronavirus is detected. On 02/25/2020 patient seen in follow-up on a general medical floor, is lethargic on today's exam, but arousable, able to give simple few word answers, denies any acute distress, he is currently on 6 L of oxygen and the pulse ox of 92-95%, his been afebrile. Patient has received a dose of Lasix yesterday with 20 mg of IV Lasix, and again in the afternoon with 40 mg of Lasix, today's chest x-ray shows improving bilateral lung infiltrates remaining greater on the right. Renal profile is slightly worse today, with BUN of 84, and creatinine is 3.85, white blood cell count of 12.9, hemoglobin of 8.3, he did receive a unit of packed red blood cells yesterday for a hemoglobin of 6.9. Electrolytes are within normal limits. Lung sounds reveal diminished breath sounds at the bases, however patient still has significant lower extremity edema. On 02/26/2020 patient seen in follow-up on general medical floor, he states he is not feeling as good today, feels more short of breath. He is awake, answering questions appropriately, he is currently on 6 L of oxygen with a pulse ox of 90-99%, hemodynamically stable, does not appear to be in any acute distress, is resting in bed. His been diuresed, still has significant lower extremity edema, however his mucous membranes are dry, patient is thirsty, his renal profile today is relatively stable, B1 is 89, and creatinine is 3.86 electrolytes are within normal limits. No complaints of chest pain, his weight is up by 2 kg in the last 24 hours, he is in positive balance, nephrology is following, and contact IV Lasix to once daily. Today's chest x-ray shows developing CHF exacerbation with a small right greater than left pleural effusions and increasing interstitial edema. We'll keep same dose of IV Lasix, continue monitoring patient's level of dyspnea, and FiO2 requirement. The patient is seen today 02/27/2020 in follow-up on the regular medical floor. He is currently resting fairly comfortably in bed. Awake and alert in no acute distress. He is continuing to require 6 L high flow nasal cannula to maintain O2 saturations in the 90s. He is afebrile. Hemodynamically stable. Sodium 137. Potassium 4.0. Creatinine 3.39. He remains on bronchodilators. Chest x- ray reveals worsening multifocal right-sided airspace disease with stable small right and trace left pleural effusion with mild pulmonary vascular congestion. Is given Lasix IV 40 mg times one this morning. The plan is for possible closed reduction with percutaneous pinning of the right femoral neck nondisplaced fracture per orthopedics today. Reevaluated today on 02/28/20, patient remains in the ICU, he underwent repair of right hip fracture yesterday, and he was transferred back to the ICU on mechanical ventilation. Presently the patient is on assist control mode of ventilation tidal volume is 450 assist-control rate is 18 FiO2 is 50% and PEEP of 5. His ventilator settings were changed and his FiO2 was cut down to 40%. ABG showed a pO2 of 117 pCO2 of 41 pH of 7.47. Patient is on propofol at 55 mcg/kg/m. Today is his postoperative day #1, patient underwent in situ screw fixation of nondisplaced right femoral neck fracture. It was expected that the patient will come back on mechanical ventilation, mostly because of his multiple underlying comorbidities including history of cough and the 19 pneumonitis and extensive pneumonic process involving the right lower lobe. Labs today showed relatively normal CBC. Hemoglobin is 8.0. Low potassium of 2.8, renal profile seems to be improving with hydration, patient was admitted with a creatinine as high as 3.86, and today's creatinine is 2.81. BUN is 74. Chest x-ray showed right basilar airspace disease, and small right pleural effusion not large enough to consider thoracentesis at this point yet. Objective - Vital Signs Vital signs: Vital Signs Temp 97.9 F 02/28/20 12:00 Pulse 65 02/28/20 12:00 Resp 16 02/28/20 12:00 BP 122/59 02/28/20 12:00 Pulse Ox 97 02/28/20 12:00 Intake & Output 02/27/20 02/28/20 02/28/20 18:59 06:59 18:59 Intake Total 570 500.387 205.265 Output Total 1260 1190 565 Balance -690 -689.613 -359.735 Weight 67.9 kg 67.9 kg Intake: IV 570 240 120 Lactated Ringers 1,000 ml 20 240 120 @ 20 mls/hr IV .Q24H JN Rx#:[id number] Intake, IV Titration 195.387 85.265 Amount Propofol 1,000 mg In 145.387 85.265 Empty Bag 1 bag @ Titrate IV .Q0M JN Rx#: [id number] ceFAZolin 2 gm In Sodium 50 Chloride 0.9% 50 ml @ 100 mls/hr IVPB Q8H JN Rx#: [id number] Other 65 Output: Urine 1250 1190 565 Uretheral (Orellana) 350 Estimated Blood Loss 10 Other: Voiding Method Indwelling Catheter Indwelling Catheter Indwelling Catheter - Exam Physical Exam: Revealed 74-year-old white male on mechanical ventilation, sedated, on propofol. Head: Atraumatic, normocephalic. HEENT:[Neck is supple.] [No neck masses.] [No thyromegaly.] [No JVD.] Endotracheal tube and orogastric tube are intact Chest: Crackles bilaterally more so at the right base. No rhonchi and no wheezes..] Cardiac Exam: [Normal S1 and S2, no S3 gallop, no murmur.] Abdomen: [Soft, nontender, no megaly, no rebound, no guarding, normal bowel sounds.] Extremities: [No clubbing, no edema, no cyanosis.] Missing first and second digits of the left hand. Neurological Exam: Patient is sedated, on propofol, could not be assessed. Psychiatric: Could not be assessed. Skin: No rashes. Lymphatics: No lymphadenopathy.] - Labs CBC & Chem 7: 02/28/20 04:33 02/28/20 04:33 Labs: Abnormal Lab Results - Last 24 Hours (Table) 02/27/20 02/27/20 02/27/20 Range/Units 15:50 18:07 18:40 RBC 3.85 L (4.30-5.90) m/uL Hgb 9.5 L (13.0-17.5) gm/dL Hct 33.2 L (39.0-53.0) % MCH 24.7 L (25.0-35.0) pg MCHC 28.7 L (31.0-37.0) g/dL RDW 17.2 H (11.5-15.5) % Lymphocytes # (1.0-4.8) k/uL ABG pH 7.34 L (7.35-7.45) ABG pCO2 47 H (35-45) mmHg ABG pO2 317 H (83-108) mmHg ABG HCO3 (21-25) mmol/L ABG Total CO2 27 H (19-24) mmol/L ABG O2 Saturation 100.0 H (94-97) % Potassium (3.5-5.1) mmol/L BUN (9-20) mg/dL Creatinine (0.66-1.25) mg/dL Glucose (74-99) mg/dL POC Glucose (mg/dL) 128 H (75-99) mg/dL Calcium (8.4-10.2) mg/dL 02/27/20 02/27/20 02/28/20 Range/Units 20:52 23:40 03:48 RBC (4.30-5.90) m/uL Hgb (13.0-17.5) gm/dL Hct (39.0-53.0) % MCH (25.0-35.0) pg MCHC (31.0-37.0) g/dL RDW (11.5-15.5) % Lymphocytes # (1.0-4.8) k/uL ABG pH (7.35-7.45) ABG pCO2 (35-45) mmHg ABG pO2 (83-108) mmHg ABG HCO3 (21-25) mmol/L ABG Total CO2 (19-24) mmol/L ABG O2 Saturation (94-97) % Potassium (3.5-5.1) mmol/L BUN (9-20) mg/dL Creatinine (0.66-1.25) mg/dL Glucose (74-99) mg/dL POC Glucose (mg/dL) 197 H 130 H 72 L (75-99) mg/dL Calcium (8.4-10.2) mg/dL 02/28/20 02/28/20 02/28/20 Range/Units 04:33 04:33 07:34 RBC 3.15 L (4.30-5.90) m/uL Hgb 8.0 L D (13.0-17.5) gm/dL Hct 26.5 L (39.0-53.0) % MCH (25.0-35.0) pg MCHC 30.0 L (31.0-37.0) g/dL RDW 18.2 H (11.5-15.5) % Lymphocytes # 0.5 L (1.0-4.8) k/uL ABG pH (7.35-7.45) ABG pCO2 (35-45) mmHg ABG pO2 (83-108) mmHg ABG HCO3 (21-25) mmol/L ABG Total CO2 (19-24) mmol/L ABG O2 Saturation (94-97) % Potassium 2.8 L (3.5-5.1) mmol/L BUN 74 H (9-20) mg/dL Creatinine 2.81 H (0.66-1.25) mg/dL Glucose 52 L (74-99) mg/dL POC Glucose (mg/dL) 52 L (75-99) mg/dL Calcium 7.9 L (8.4-10.2) mg/dL 02/28/20 02/28/20 02/28/20 Range/Units 08:17 12:48 12:51 RBC (4.30-5.90) m/uL Hgb (13.0-17.5) gm/dL Hct (39.0-53.0) % MCH (25.0-35.0) pg MCHC (31.0-37.0) g/dL RDW (11.5-15.5) % Lymphocytes # (1.0-4.8) k/uL ABG pH 7.47 H (7.35-7.45) ABG pCO2 (35-45) mmHg ABG pO2 117 H (83-108) mmHg ABG HCO3 29 H (21-25) mmol/L ABG Total CO2 30 H (19-24) mmol/L ABG O2 Saturation 99.0 H (94-97) % Potassium (3.5-5.1) mmol/L BUN (9-20) mg/dL Creatinine (0.66-1.25) mg/dL Glucose (74-99) mg/dL POC Glucose (mg/dL) 43 L 65 L (75-99) mg/dL Calcium (8.4-10.2) mg/dL Assessment and Plan Assessment: 1 Acute trauma including a nondisplaced right femoral neck fracture status post fall. Patient is status post in situ screw fixation of nondisplaced right femoral neck fracture. 2 Acute CoVID 19 infection 3 postoperative hypoxic respiratory failure requiring ventilatory support, expected, considering the patient known history of acute coughing 19 pneumonitis, and history of acute on chronic diastolic congestive heart failure. And known history of severe pulmonary hypertension 4 Severe pulmonary hypertension with an RVSP of 67 mmHg. 5 Acute anemia with hemoglobin is 6.9, received 1 unit packed red blood cells, 6 Acute on chronic renal failure with current creatinine 3.39 7 Troponin leak 8 Elevated LFTs 9 History of dementia 10 Diabetes mellitus, type II 11 Hyperlipidemia 12 Hypertension 13 Chronic obstructive pulmonary disease, oxygen dependent 14 History of previous tobacco dependence of 42 years at 1 pack per day. Quit approximately 3 years ago 15 Poor overall functional performance based on the above-mentioned multiple comorbidities Recommendation: Continue ventilatory support, Continue GI and DVT prophylaxis. Start enteral feeding. Continue diuretics. Continue propofol. Continue Lasix. We'll continue to follow. Critical care time is 33 minutes, not including time spent on procedures. Time with Patient: Greater than 30
[2020-02-28 14:08] LABS: Magnesium 2.3 mg/dL (1.6-2.3); Potassium 3.3 mmol/L (3.5-5.1)
[2020-02-28 16:14] LABS: Glucose,Whole Blood 57 mg/dL (75-99)
[2020-02-28 16:41] LABS: Glucose,Whole Blood 79 mg/dL (75-99)
[2020-02-28] MEDS: NITROGLYCERIN OINT 1 INCH/GM PACKET TOPICAL SCH (17:32)
[2020-02-28] MEDS: POTASSIUM BICARBONATE/CIT AC 20 MEQ TABLET.EFF NG-TUBE SCH ×2 (17:32→19:30)
[2020-02-28 19:55] LABS: Glucose,Whole Blood 94 mg/dL (75-99)
--- NOTE | 2020-02-28 20:16 | PCN ---
PROCEDURE NOTE OPERATIVE REPORT: Placement of a right subclavian triple-lumen catheter. PREOPERATIVE DIAGNOSIS: Acute hypoxic respiratory failure, Covid 19, pneumonia, and status post right hip open reduction and fixation. POSTOPERATIVE DIAGNOSIS: Acute hypoxic respiratory failure, Covid 19, pneumonia, and status post right hip open reduction and fixation. ANESTHESIA USED: 2 mL of 1% lidocaine. PROCEDURE DETAILS: The patient was placed in a Trendelenburg position, the area of the left subclavian area was prepared in a sterile fashion and drapes were applied. Using the infraclavicular approach, the left subclavian vein was easily cannulated, and a guidewire was placed. The area around the guidewire was dilated, then the triple catheter was inserted over the guidewire, the guidewire was removed. Good blood flow was noted in the 3 different ports of the triple-lumen catheter. No evidence of any immediate complications. The line was secured using 3.0 silk sutures. Chest x-ray again showed no complications. MMODL / IJN: [id number] /
[2020-02-28] MEDS: ATORVASTATIN 20 MG TAB PO SCH (20:21)
--- NOTE | 2020-02-28 20:22 | PCN ---
PROCEDURE NOTE OPERATIVE REPORT: Placement of the right brachial arterial line. PREOPERATIVE DIAGNOSIS: Respiratory failure. POSTOP DIAGNOSIS: Respiratory failure. ANESTHESIA: Used none deployed. PROCEDURE DETAILS: The right brachial region was prepared in a sterile fashion and drapes were applied. The right brachial artery was palpated, cannulated, and a guidewire was placed. A Cook catheter was inserted over the guidewire, and the guidewire was removed. Good blood flow, good waveform noted. No evidence of any immediate complications. The line was secured using 3.0 silk sutures. MMODL / IJN: [id number] /
[2020-02-28] MEDS: INSULIN DETEMIR (LEVEMIR) 100 UNIT/ML SYR SQ SCH (22:02)
[2020-02-29 00:01] LABS: Glucose,Whole Blood 106 mg/dL (75-99)
[2020-02-29] MEDS: INSULIN ASPART (NovoLOG) 100 UNIT/ML VIAL SQ SCH ×7 (00:26→23:58)
[2020-02-29] MEDS ORDERED: POTASSIUM BICARBONATE/CIT AC 20 MEQ TABLET.EFF NG-TUBE SCH (01:00)
[2020-02-29] MEDS: NITROGLYCERIN OINT 1 INCH/GM PACKET TOPICAL SCH ×5 (01:24→16:57)
[2020-02-29] MEDS: PROPOFOL 1,000 MG in EMPTY BAG 1 BAG IV SCH ×2 (01:24→07:05)
[2020-02-29 03:31] LABS: Glucose,Whole Blood 145 mg/dL (75-99)
[2020-02-29 03:43] LABS: Anisocytosis Slight; Basophils % (A) 0 %; Eosinophils # (A) 0.1 k/uL (0-0.7); Eosinophils % (A) 1 %; HCT 26.8 % (39.0-53.0); HGB 8.1 gm/dL (13.0-17.5); Hypochromasia Marked; Lymphocytes # (A) 0.7 k/uL (1.0-4.8); Lymphocytes % (A) 8 %; MCH 24.8 pg (25.0-35.0); MCHC 30.4 g/dL (31.0-37.0); MCV 81.6 fL (80.0-100.0); Mean Platelet Volume 9.4; Microcytosis Slight; Monocytes # (A) 0.9 k/uL (0-1.0); Monocytes % (A) 10 %; Neutrophils # (A) 6.5 k/uL (1.3-7.7); Neutrophils % (A) 78 %; Platelet Count 166 k/uL (150-450); Poikilocytosis Slight; RBC 3.28 m/uL (4.30-5.90); RDW 18.5 % (11.5-15.5); WBC 8.4 k/uL (3.8-10.6)
[2020-02-29 05:19] LABS: Albumin 2.2 g/dL (3.5-5.0); Calcium 7.7 mg/dL (8.4-10.2); Potassium 4.1 mmol/L (3.5-5.1); Total Bilirubin 0.5 mg/dL (0.2-1.3); Total Protein 4.6 g/dL (6.3-8.2)
[2020-02-29] MEDS: LACTATED RINGERS 1,000 ML IV SCH (05:37)
[2020-02-29] MEDS: HYDROmorphone 0.5 MG/0.5 ML SYRINGE IVP PRN ×4 (05:37→23:06)
--- NOTE | 2020-02-29 06:36 | XR ---
EXAMINATION TYPE: XR chest 1V portable DATE OF EXAM: 02/29/2020 HISTORY: Tube placement. REFERENCE: Previous study dated 02/28/2020. FINDINGS: The patient's ET tube and NG tube remain in place, unchanged in appearance. There is contin uing right-sided airspace disease. There is worsening left basilar airspace disease. There is a kecia nuing right-sided effusion and a worsening left-sided effusion. The heart is enlarged. IMPRESSION: 1. CONTINUING BIBASILAR AIRSPACE DISEASE, WORSENING ON THE LEFT. 2. BILATERAL EFFUSIONS, WORSENING ON THE LEFT.
[2020-02-29 07:32] LABS: ABG Base Excess 7.6 mmol/L; ABG HCO3 30 mmol/L (21-25); ABG Oxygen Saturation 98.6 % (94-97); ABG PCO2 34 mmHg (35-45); ABG PH 7.55 (7.35-7.45); ABG PO2 95 mmHg (83-108); ABG TCO2 31 mmol/L (19-24)
[2020-02-29 07:34] LABS: Allen Test Performed? no
[2020-02-29] MEDS: buPROPion XL 150 MG TAB.ER.24H PO SCH (09:17)
[2020-02-29] MEDS: TAMSULOSIN 0.4 MG CAP.ER.24H PO SCH (09:18)
[2020-02-29] MEDS: METOPROLOL TARTRATE 50 MG TAB PO SCH ×2 (09:21→20:36)
[2020-02-29] MEDS: CHLORHEXIDINE GLUCONATE 15 ML CUP MUCOUS MEM SCH (09:22)
[2020-02-29] MEDS: SENNOSIDES-DOCUSATE SODIUM 1 EACH TAB PO SCH ×2 (09:22→20:36)
[2020-02-29] MEDS: PANTOPRAZOLE 40 MG/10 ML VIAL IVP SCH (09:22)
[2020-02-29] MEDS: FUROSEMIDE 10 MG/ML 4 ML VIAL IV SCH (09:23)
[2020-02-29] MEDS: ENOXAPARIN 30 MG/0.3 ML SYRINGE SQ SCH (09:23)
[2020-02-29] MEDS: ESCITALOPRAM 10 MG TAB PO SCH (09:25)
[2020-02-29] MEDS: LINAGLIPTIN 5 MG TABLET PO SCH (09:25)
[2020-02-29] MEDS: DOCUSATE ORAL SOLN 100 MG/10 ML CUP PO SCH (09:26)
[2020-02-29] MEDS: LIDOCAINE 5% PATCH TOPICAL SCH (09:26)
[2020-02-29 09:44] LABS: Glucose,Whole Blood 194 mg/dL (75-99)
--- NOTE | 2020-02-29 09:58 | P.PN ---
Subjective Progress Note Date: 02/29/20 This is a pleasant 74-year-old male past medical history significant for diastolic heart failure, COPD on home oxygen, diabetes mellitus, hypertension and dyslipidemia. He denies prior history of coronary artery disease and does not follow in the office with a willower. We have been asked to see in consultation for preoperative evaluation. He is currently residing at [facility] on [facility] and suffered a fall in the shower last night sustaining a nondisplaced right femoral neck fracture. He has been seen in evaluation by orthopedic surgery and is scheduled to undergo surgical repair tomorrow morning. He is seen and examined sitting up in bed in mild respiratory distress. He states he has been having ongoing shortness of breath since his previous admission in November. At that time he was treated for acute exacerbation of diastolic heart failure. Chest x-rays obtained on this adm ission revealed pleural effusion and pulmonary edema worsened compared to November chest x-rays. EKG reveals sinus mechanism with heart rate of 71. Laboratory data reviewed. Covid 19 positive, hemoglobin 6.9, platelets 174, sodium 138, potassium 4.2, creatinine 3.51 with a GFR 16, troponin 0.047 and 0.054 and NT proBNP 25,000. He has been initiated on IV lasix per nephrology and has PRBC infusing currently. He has a healy in place with bright red blood noted in the tubing and drainage bag. Most recent echocardiogram obtained 11/2019 reveals preserved LV systolic function with ejection fraction 50-55%, grade 2 diastolic dysfunction, mild aortic regurgitation, mild aortic stenosis with a mean gradient of 14 mmHg, moderate mitral regurgitation, moderate to severe tricuspid regurgitation and severe pulmonary hypertension with an RVSP of 67 mmHg. Current daily cardiac medications includeaspirin 81 mg daily, Imdur 30 mg daily, atorvastatin 20 mg daily, lisinopril 10 mg daily, Lasix 40 mg twice a day, Lopressor 50 mg twice a day and hydralazine 25 mg 3 times a day. On 02/28/2020 the patient was seen in follow-up at his bedside intensive care unit. He remains sedated on propofol drip and is intubated with mechanical ventilator support. His oxygen saturation are 97% with 50% FiO2 support. Bedside telemetry showing normal sinus rhythm heart rate 64. A chest x-ray was completed this morning which demonstrates an ET tube and NG tube in place, left subclavian catheter in place, enlarged heart and continued right basilar airspace disease with a small right pleural effusion. Laboratory results this morning show a WBC count 7.3, hemoglobin 8.0, hematocrit 26.5, platelets 170, p otassium 2.8, BUN 74 and creatinine 2.81. He is a Healy catheter in place for accurate I&O with 565 mL output in the last 8 hours and his 24-hour I's and O showed a negative balance of -1.3 L. He continues to receive Lasix, atorvastatin, and metoprolol. 02/29/2020 Postop day #2 in situ screw fixation of nondisplaced right transcervical femoral neck fracture performed by Dr. Angel. Patient remains sedated on propofol and intubated with mechanical ventilator support. Saturations are 99% with 40% FiO2 support. Bedside telemetry showing normal sinus rhythm. Chest x-ray this morning showed continued bibasilar airspace disease, worsening on the left, bilateral effusions, worsening on the left. He's been followed by pulmonary. Laboratory results this morning show a WBC count of 8.4, hemoglobin 8.1, hematocrit 26.8, platelet count 166, potassium 4.1, BUN 67, creatinine 2.43. He has a Healy catheter in place fracture I's and O's and he's had a negative balance of 1.1 m over the last 24 hours. Remains on Lasix 40 mg IV push daily, hydralazine 10 mg IV push every 6 hours as needed, atorvastatin 20 mg at bedtime, metoprolol 50 mg twice a day and nitroglycerin ointment. Objective - Vital Signs Vital signs: Vital Signs Temp 98.6 F 02/29/20 04:00 Pulse 68 02/29/20 07:00 Resp 18 02/29/20 07:00 BP 101/52 02/29/20 07:00 Pulse Ox 96 02/29/20 07:00 Intake & Output 02/28/20 02/29/20 02/29/20 18:59 06:59 18:59 Intake Total 503.138 730 168.916 Output Total 1270 1075 50 Balance -766.862 -345 118.916 Weight 67.9 kg Intake: IV 240 240 20 Lactated Ringers 1,000 ml 240 240 20 @ 20 mls/hr IV .Q24H JN Rx#:[id number] Intake, IV Titration 173.138 100 88.916 Amount Propofol 1,000 mg In 173.138 100 88.916 Empty Bag 1 bag @ Titrate IV .Q0M JN Rx#: [id number] Tube Feeding 60 270 60 Other 30 120 Output: Urine 1270 1075 50 Other: Voiding Method Indwelling Catheter Indwelling Catheter ABP, PAP, CO, CI - Last Documented Arterial Blood Pressure 98/47 - Constitutional Constitutional Comment(s): This is a 74-year-old gentleman who remained sedated, intubated with mechanical ventilator support. He does not appear to be in any acute distress. - Respiratory Details: Respirations are symmetrical and nonlabored with mechanical ventilator support. - Cardiovascular Rhythm: regular - Gastrointestinal Gastrointestinal Comment(s): NG tube in place - Genitourinary Genitourinary Comment(s): Healy catheter in place - Neurologic Neurologic Comment(s): Patient remained sedated on propofol - Labs CBC & Chem 7: 02/29/20 03:25 02/29/20 03:25 Labs: Abnormal Lab Results - Last 24 Hours (Table) 02/28/20 02/28/20 02/28/20 Range/Units 12:48 12:51 13:40 RBC (4.30-5.90) m/uL Hgb (13.0-17.5) gm/dL Hct (39.0-53.0) % MCH (25.0-35.0) pg MCHC (31.0-37.0) g/dL RDW (11.5-15.5) % Lymphocytes # (1.0-4.8) k/uL ABG pH (7.35-7.45) ABG pCO2 (35-45) mmHg ABG HCO3 (21-25) mmol/L ABG Total CO2 (19-24) mmol/L ABG O2 Saturation (94-97) % Potassium 3.3 L (3.5-5.1) mmol/L BUN (9-20) mg/dL Creatinine (0.66-1.25) mg/dL Glucose (74-99) mg/dL POC Glucose (mg/dL) 43 L 65 L (75-99) mg/dL Calcium (8.4-10.2) mg/dL Total Protein (6.3-8.2) g/dL Albumin (3.5-5.0) g/dL 02/28/20 02/28/20 02/29/20 Range/Units 16:14 23:58 03:25 RBC 3.28 L (4.30-5.90) m/uL Hgb 8.1 L (13.0-17.5) gm/dL Hct 26.8 L (39.0-53.0) % MCH 24.8 L (25.0-35.0) pg MCHC 30.4 L (31.0-37.0) g/dL RDW 18.5 H (11.5-15.5) % Lymphocytes # 0.7 L (1.0-4.8) k/uL ABG pH (7.35-7.45) ABG pCO2 (35-45) mmHg ABG HCO3 (21-25) mmol/L ABG Total CO2 (19-24) mmol/L ABG O2 Saturation (94-97) % Potassium (3.5-5.1) mmol/L BUN (9-20) mg/dL Creatinine (0.66-1.25) mg/dL Glucose (74-99) mg/dL POC Glucose (mg/dL) 57 L 106 H (75-99) mg/dL Calcium (8.4-10.2) mg/dL Total Protein (6.3-8.2) g/dL Albumin (3.5-5.0) g/dL 02/29/20 02/29/20 02/29/20 Range/Units 03:25 03:29 07:26 RBC (4.30-5.90) m/uL Hgb (13.0-17.5) gm/dL Hct (39.0-53.0) % MCH (25.0-35.0) pg MCHC (31.0-37.0) g/dL RDW (11.5-15.5) % Lymphocytes # (1.0-4.8) k/uL ABG pH 7.55 H (7.35-7.45) ABG pCO2 34 L (35-45) mmHg ABG HCO3 30 H (21-25) mmol/L ABG Total CO2 31 H (19-24) mmol/L ABG O2 Saturation 98.6 H (94-97) % Potassium (3.5-5.1) mmol/L BUN 67 H (9-20) mg/dL Creatinine 2.43 H (0.66-1.25) mg/dL Glucose 129 H (74-99) mg/dL POC Glucose (mg/dL) 145 H (75-99) mg/dL Calcium 7.7 L (8.4-10.2) mg/dL Total Protein 4.6 L (6.3-8.2) g/dL Albumin 2.2 L (3.5-5.0) g/dL 02/29/20 Range/Units 09:42 RBC (4.30-5.90) m/uL Hgb (13.0-17.5) gm/dL Hct (39.0-53.0) % MCH (25.0-35.0) pg MCHC (31.0-37.0) g/dL RDW (11.5-15.5) % Lymphocytes # (1.0-4.8) k/uL ABG pH (7.35-7.45) ABG pCO2 (35-45) mmHg ABG HCO3 (21-25) mmol/L ABG Total CO2 (19-24) mmol/L ABG O2 Saturation (94-97) % Potassium (3.5-5.1) mmol/L BUN (9-20) mg/dL Creatinine (0.66-1.25) mg/dL Glucose (74-99) mg/dL POC Glucose (mg/dL) 194 H (75-99) mg/dL Calcium (8.4-10.2) mg/dL Total Protein (6.3-8.2) g/dL Albumin (3.5-5.0) g/dL Assessment and Plan Assessment: #1 acute on chronic diastolic heart failure #2 acute on chronic kidney failure #3 right femoral neck fracture status post fall in the shower, status post in situ screw fixation of nondisplaced right transcervical femoral neck fracture #4 COVID 19 #5 anemia #6 COPD on home oxygen #7 diabetes mellitus #8 hypertension #9 dyslipidemia #10 valvular heart disease #11 pulmonary hypertension Plan: From cardiology's perspective, medications reviewed and we'll continue the same. Continue to monitor renal function and electrolytes with electrolyte replacement per protocol as necessary. Continue to follow daily weights and accurate I's and O's. We'll continue to follow the patient provide further recommendations accordingly. RESIDENT CAREGIVER note has been reviewed, I agree with a documented findings and plan of care. Patient was seen and examined.
[2020-02-29] MEDS: HYDROcodone/APAP 5-325MG 1 EACH TAB PO PRN (10:35)
--- NOTE | 2020-02-29 10:38 | P.PN ---
Subjective Progress Note Date: 02/29/20 Principal diagnosis: 74-year-old male patient that was [facility] for the subacute rehab. He suffered a right hip fracture and multiple skin tears and abrasions from a fall while taking a shower. Past medical history this gentleman is his hyperlipidemia severe pulmonary hypertension, hypertension, type 2 diabetes, COPD, former smoker, chronic renal insufficiency, recent pneumonia, and early dementia. He scored 11 out of 30 in the [place] cognitive scoring completed at [facility]. 02/28/2020 patient is postop day 1 from in-situ screw fixation of nondisplaced right transcervical femoral neck fracture. He is currently on the ventilator with FiO2 50% and is on sedation with propofol at 35 mics per kilo per minute. Last of which was 99.2 orally her rate was 62 respiratory rate of 16 blood pressure of 1.5 or 56 maintain oxygen saturation 97% while percent on the ventilator. Latest labs WBC is 7.3 hemoglobin of 8.0 hematocrit of 26.5, platelet count of 170. Chemistry revealed a sodium 1:30 potassium 2.8 chloride 102 174 creatinine of 2.1 glucose 52. [id number] glucose was 52 at some point for this morning received have amp D50 and brought him up to 86. Treatment for the potassium of 2.8 was treated with potassium supplement. 02/29/2020 patient is postop day 2 from in situ screw fixation of nondisplaced right transcervical femoral neck fracture. Patient currently remains on mechanical ventilation at 40% was sedation with propofol at 35 mics per kilo per minute. Vital signs are stable this time with a temperature of 97.9 axillary, pulse rate of 69 normal sinus rhythm via bedside telemetry respiratory rate of 14 blood pressure is 109/51. This morning's labs WBC of 8.4 hemoglobin of 8.1, hematocrit of 26.8, platelet count of 166, sodium 139, potassium is 4.1, P1 67, creatinine of 2.43, glucose of 129. Chest x-ray from this morning impression is continuing bibasilar airspace disease worsening on the left bilateral effusions, worsening on the left. Last night's dose of Levemir was held for fear of hypoglycemia, his primary care glucoses morning was 145. Objective - Vital Signs Vital signs: Vital Signs Temp 97.9 F 02/29/20 08:00 Pulse 81 02/29/20 09:00 Resp 14 02/29/20 09:00 BP 109/51 02/29/20 09:00 Pulse Ox 99 02/29/20 09:00 Intake & Output 02/28/20 02/29/20 02/29/20 18:59 06:59 18:59 Intake Total 503.138 730 268.916 Output Total 1270 1075 150 Balance -766.862 -345 118.916 Weight 67.9 kg Intake: IV 240 240 60 Lactated Ringers 1,000 ml 240 240 60 @ 20 mls/hr IV .Q24H JN Rx#:[id number] Intake, IV Titration 173.138 100 88.916 Amount Propofol 1,000 mg In 173.138 100 88.916 Empty Bag 1 bag @ Titrate IV .Q0M JN Rx#: [id number] Tube Feeding 60 270 120 Other 30 120 Output: Urine 1270 1075 150 Other: Voiding Method Indwelling Catheter Indwelling Catheter ABP, PAP, CO, CI - Last Documented Arterial Blood Pressure 109/104 - Exam GENERAL: Resting quietly while sedated on mechanical ventilation. HEAD: Atraumatic, normocephalic. EYES: Pupils equal round and reactive to light, extraocular movements intact, sclera anicteric, conjunctiva are normal. ENT:nares patent, oropharynx clear without exudates. Moist mucous membranes. NECK: Endotracheal tube and orogastric tube are intact, neck is supple without lymphadenopathy or JVD, no thyromegaly LUNGS: Breath sounds with bilateral scattered rhonchi, basilar crackles bilaterally. HEART: Regular rate and rhythm without murmurs, rubs or gallops.S1S2 Normal ABDOMEN: Soft, nontender, normoactive bowel sounds. No guarding, no rebound. No masses appreciated. EXTREMITIES: no pitting or edema. No clubbing or cyanosis. NEUROLOGICAL: Could not be assessed this patient is sedated on propofol PSYCH: Unable to assess. SKIN: Warm, Dry, normal turgor, no rashes, surgical incision dressing dry and intact. - Labs CBC & Chem 7: 02/29/20 03:25 02/29/20 03:25 Labs: Abnormal Lab Results - Last 24 Hours (Table) 02/28/20 02/28/20 02/28/20 Range/Units 12:48 12:51 13:40 RBC (4.30-5.90) m/uL Hgb (13.0-17.5) gm/dL Hct (39.0-53.0) % MCH (25.0-35.0) pg MCHC (31.0-37.0) g/dL RDW (11.5-15.5) % Lymphocytes # (1.0-4.8) k/uL ABG pH (7.35-7.45) ABG pCO2 (35-45) mmHg ABG HCO3 (21-25) mmol/L ABG Total CO2 (19-24) mmol/L ABG O2 Saturation (94-97) % Potassium 3.3 L (3.5-5.1) mmol/L BUN (9-20) mg/dL Creatinine (0.66-1.25) mg/dL Glucose (74-99) mg/dL POC Glucose (mg/dL) 43 L 65 L (75-99) mg/dL Calcium (8.4-10.2) mg/dL Total Protein (6.3-8.2) g/dL Albumin (3.5-5.0) g/dL 02/28/20 02/28/20 02/29/20 Range/Units 16:14 23:58 03:25 RBC 3.28 L (4.30-5.90) m/uL Hgb 8.1 L (13.0-17.5) gm/dL Hct 26.8 L (39.0-53.0) % MCH 24.8 L (25.0-35.0) pg MCHC 30.4 L (31.0-37.0) g/dL RDW 18.5 H (11.5-15.5) % Lymphocytes # 0.7 L (1.0-4.8) k/uL ABG pH (7.35-7.45) ABG pCO2 (35-45) mmHg ABG HCO3 (21-25) mmol/L ABG Total CO2 (19-24) mmol/L ABG O2 Saturation (94-97) % Potassium (3.5-5.1) mmol/L BUN (9-20) mg/dL Creatinine (0.66-1.25) mg/dL Glucose (74-99) mg/dL POC Glucose (mg/dL) 57 L 106 H (75-99) mg/dL Calcium (8.4-10.2) mg/dL Total Protein (6.3-8.2) g/dL Albumin (3.5-5.0) g/dL 02/29/20 02/29/20 02/29/20 Range/Units 03:25 03:29 07:26 RBC (4.30-5.90) m/uL Hgb (13.0-17.5) gm/dL Hct (39.0-53.0) % MCH (25.0-35.0) pg MCHC (31.0-37.0) g/dL RDW (11.5-15.5) % Lymphocytes # (1.0-4.8) k/uL ABG pH 7.55 H (7.35-7.45) ABG pCO2 34 L (35-45) mmHg ABG HCO3 30 H (21-25) mmol/L ABG Total CO2 31 H (19-24) mmol/L ABG O2 Saturation 98.6 H (94-97) % Potassium (3.5-5.1) mmol/L BUN 67 H (9-20) mg/dL Creatinine 2.43 H (0.66-1.25) mg/dL Glucose 129 H (74-99) mg/dL POC Glucose (mg/dL) 145 H (75-99) mg/dL Calcium 7.7 L (8.4-10.2) mg/dL Total Protein 4.6 L (6.3-8.2) g/dL Albumin 2.2 L (3.5-5.0) g/dL 02/29/20 Range/Units 09:42 RBC (4.30-5.90) m/uL Hgb (13.0-17.5) gm/dL Hct (39.0-53.0) % MCH (25.0-35.0) pg MCHC (31.0-37.0) g/dL RDW (11.5-15.5) % Lymphocytes # (1.0-4.8) k/uL ABG pH (7.35-7.45) ABG pCO2 (35-45) mmHg ABG HCO3 (21-25) mmol/L ABG Total CO2 (19-24) mmol/L ABG O2 Saturation (94-97) % Potassium (3.5-5.1) mmol/L BUN (9-20) mg/dL Creatinine (0.66-1.25) mg/dL Glucose (74-99) mg/dL POC Glucose (mg/dL) 194 H (75-99) mg/dL Calcium (8.4-10.2) mg/dL Total Protein (6.3-8.2) g/dL Albumin (3.5-5.0) g/dL Assessment and Plan (1) COVID-19 Current Visit: Yes Status: Acute Code(s): U07.1 - COVID-19 SNOMED Code(s): 213533845 (2) Closed right hip fracture Current Visit: Yes Status: Acute Code(s): S72.001A - FRACTURE OF UNSP PART OF NECK OF RIGHT FEMUR, INIT SNOMED Code(s): 857096291 (3) Fall Current Visit: Yes Status: Acute Code(s): W19.XXXA - UNSPECIFIED FALL, INITIAL ENCOUNTER SNOMED Code(s): 9101491 (4) Chronic renal failure Current Visit: No Status: Acute Code(s): N18.9 - CHRONIC KIDNEY DISEASE, UNSPECIFIED SNOMED Code(s): 85233177 (5) Cognitive impairment Current Visit: No Status: Acute Code(s): R41.89 - OTH SYMPTOMS AND SIGNS W COGNITIVE FUNCTIONS AND AWARENESS SNOMED Code(s): 700403522 (6) Diabetes mellitus Current Visit: No Status: Acute Code(s): E11.9 - TYPE 2 DIABETES MELLITUS WITHOUT COMPLICATIONS SNOMED Code(s): 64291003 (7) Elevated troponin I level Current Visit: No Status: Acute Code(s): R79.89 - OTHER SPECIFIED ABNORMAL FINDINGS OF BLOOD CHEMISTRY SNOMED Code(s): 829755068 (8) Hyperlipidemia Current Visit: No Status: Acute Code(s): E78.5 - HYPERLIPIDEMIA, UNSPECIFIED SNOMED Code(s): 88349696 (9) Hypertension Current Visit: No Status: Acute Code(s): I10 - ESSENTIAL (PRIMARY) HYPERTENSION SNOMED Code(s): 59891617 (10) Respiratory distress Current Visit: No Status: Acute Code(s): R06.03 - ACUTE RESPIRATORY DISTRESS SNOMED Code(s): 242012688 Plan: 1. Continue to monitor renal function 2. Maintain Orellana catheter at this time 3. Continue with IV Lasix daily 4. COVID 19 positive will follow pulmonary recommendations 5. We'll reorder a.m. chest x-ray 6. Will check lytes and magnesium 7. Continue ventilatory support 8. Continued DVT prophylaxis 9. Continue enteral feedings 10. We'll reassess patient again tomorrow Time with Patient: Greater than 30
--- NOTE | 2020-02-29 11:09 | P.PN ---
Subjective Progress Note Date: 02/29/20 Principal diagnosis: Right femoral neck fracture Covid the 19 pneumonitis This is a very pleasant 74-year-old gentleman who follows with Dr. Akhtar as his primary care provider. He is a history of diabetes mellitus, type II, hypertension, hyperlipidemia, anxiety, previous chronic tobacco dependence and chronic obstructive pulmonary disease, on home oxygen at 2 L. He had recently in November 2019 been admitted for an acute exacerbation of chronic congestive heart failure secondary to diastolic dysfunction. He was subsequent discharged to [facility] on the [place] where he has been staying for rehabilitation. Last evening he was brought to the emergency room after sustaining a fall in the shower. He had multiple abrasions on his skin. Laceration to the right ear requiring sutures,, trauma to the right chest and a nondisplaced right femoral neck fracture. Computed tomography scan of the brain and C-spine revealed no acute intracranial abnormalities. No cervical spine fractures. He had been seen and evaluated by orthopedic surgery and were considering repair of the right hip fracture. We have been asked to consult for preoperative clearance. He is seen today in consultation on the regular medical floor. He is currently awake and alert in no acute distress. He is maintaining O2 saturation in the low 90s on 4 L/m per nasal cannula. Chest x-ray showed evidence of congestive heart failure with pleural effusions and pulmonary edema which is worse compared to previous in November 2019. White count 10.0. Hemoglobin 6.9. Platelet count 174. Lymphocytes 0.4. INR 1.2. Sodium 138. Potassium 4.2. Bicarb 14. Creatinine 3.51. Glucose 146. AST 83. ALT 121. Troponin 0.047, 0.054. ProBNP 25,000. Coronavirus is detected. On 02/25/2020 patient seen in follow-up on a general medical floor, is lethargic on today's exam, but arousable, able to give simple few word answers, denies any acute distress, he is currently on 6 L of oxygen and the pulse ox of 92-95%, his been afebrile. Patient has received a dose of Lasix yesterday with 20 mg of IV Lasix, and again in the afternoon with 40 mg of Lasix, today's chest x-ray shows improving bilateral lung infiltrates remaining greater on the right. Renal profile is slightly worse today, with BUN of 84, and creatinine is 3.85, white blood cell count of 12.9, hemoglobin of 8.3, he did receive a unit of packed red blood cells yesterday for a hemoglobin of 6.9. Electrolytes are within normal limits. Lung sounds reveal diminished breath sounds at the bases, however patient still has significant lower extremity edema. On 02/26/2020 patient seen in follow-up on general medical floor, he states he is not feeling as good today, feels more short of breath. He is awake, answering questions appropriately, he is currently on 6 L of oxygen with a pulse ox of 90-99%, hemodynamically stable, does not appear to be in any acute distress, is resting in bed. His been diuresed, still has significant lower extremity edema, however his mucous membranes are dry, patient is thirsty, his renal profile today is relatively stable, B1 is 89, and creatinine is 3.86 electrolytes are within normal limits. No complaints of chest pain, his weight is up by 2 kg in the last 24 hours, he is in positive balance, nephrology is following, and contact IV Lasix to once daily. Today's chest x-ray shows developing CHF exacerbation with a small right greater than left pleural effusions and increasing interstitial edema. We'll keep same dose of IV Lasix, continue monitoring patient's level of dyspnea, and FiO2 requirement. The patient is seen today 02/27/2020 in follow-up on the regular medical floor. He is currently resting fairly comfortably in bed. Awake and alert in no acute distress. He is continuing to require 6 L high flow nasal cannula to maintain O2 saturations in the 90s. He is afebrile. Hemodynamically stable. Sodium 137. Potassium 4.0. Creatinine 3.39. He remains on bronchodilators. Chest x- ray reveals worsening multifocal right-sided airspace disease with stable small right and trace left pleural effusion with mild pulmonary vascular congestion. Is given Lasix IV 40 mg times one this morning. The plan is for possible closed reduction with percutaneous pinning of the right femoral neck nondisplaced fracture per orthopedics today. Reevaluated today on 02/28/20, patient remains in the ICU, he underwent repair of right hip fracture yesterday, and he was transferred back to the ICU on mechanical ventilation. Presently the patient is on assist control mode of ventilation tidal volume is 450 assist-control rate is 18 FiO2 is 50% and PEEP of 5. His ventilator settings were changed and his FiO2 was cut down to 40%. ABG showed a pO2 of 117 pCO2 of 41 pH of 7.47. Patient is on propofol at 55 mcg/kg/m. Today is his postoperative day #1, patient underwent in situ screw fixation of nondisplaced right femoral neck fracture. It was expected that the patient will come back on mechanical ventilation, mostly because of his multiple underlying comorbidities including history of cough and the 19 pneumonitis and extensive pneumonic process involving the right lower lobe. Labs today showed relatively normal CBC. Hemoglobin is 8.0. Low potassium of 2.8, renal profile seems to be improving with hydration, patient was admitted with a creatinine as high as 3.86, and today's creatinine is 2.81. BUN is 74. Chest x-ray showed right basilar airspace disease, and small right pleural effusion not large enough to consider thoracentesis at this point yet. Reevaluated today on 02/29/20, patient remains in the ICU, intubated and mechanically ventilated. His ventilator settings are assist control rate of 18 tidal volume is 450 FiO2 is 40% and PEEP is 5 ABG showed a pO2 of 95 pCO2 of 34 pH of 7.55 hence rate was cut down. Patient is on propofol at 55 mcg/kg/m, he is also on enteral feeding at 50 ML per hour. Chest x-ray continues to show significant infiltrate involving mostly the right lower lobe and right midlung. Patient is known to have history of Coumadin 19 pneumonitis. My plan today is to hold tube feeding, hold propofol, wake of the patient, and possibly give him a weaning trials after checking weaning parameters, and he will be given a trial of pressure support of 8 and CPAP. In the meantime I plan to continue his antibiotics and his diuretics. Objective - Vital Signs Vital signs: Vital Signs Temp 97.9 F 02/29/20 08:00 Pulse 76 02/29/20 10:00 Resp 14 02/29/20 10:00 BP 103/50 02/29/20 10:00 Pulse Ox 99 02/29/20 10:00 Intake & Output 02/28/20 02/29/20 02/29/20 18:59 06:59 18:59 Intake Total 503.138 730 351.481 Output Total 1270 1075 300 Balance -766.862 -345 51.481 Weight 67.9 kg 68.8 kg Intake: IV 240 240 83 Lactated Ringers 1,000 ml 240 240 80 @ 20 mls/hr IV .Q24H JN Rx#:[id number] pressure bag 3 Intake, IV Titration 173.138 100 148.481 Amount Propofol 1,000 mg In 173.138 100 148.481 Empty Bag 1 bag @ Titrate IV .Q0M JN Rx#: [id number] Tube Feeding 60 270 120 Other 30 120 Output: Urine 1270 1075 300 Other: Voiding Method Indwelling Catheter Indwelling Catheter Indwelling Catheter ABP, PAP, CO, CI - Last Documented Arterial Blood Pressure 125/50 - Exam Physical Exam: Revealed 74-year-old white male on mechanical ventilation, sedated, on propofol. Which I plan to hold today and assess weaning parameters Head: Atraumatic, normocephalic. HEENT:[Neck is supple.] [No neck masses.] [No thyromegaly.] [No JVD.] Endotracheal tube and orogastric tube are intact Chest: Crackles bilaterally more so at the right base. No rhonchi and no wheezes..] Cardiac Exam: [Normal S1 and S2, no S3 gallop, no murmur.] Abdomen: [Soft, nontender, no megaly, no rebound, no guarding, normal bowel sounds.] Extremities: [No clubbing, no edema, no cyanosis.] Missing first and second digits of the left hand. Neurological Exam: Patient is sedated, on propofol, could not be assessed. Psychiatric: Could not be assessed. Skin: No rashes. Lymphatics: No lymphadenopathy.] - Labs CBC & Chem 7: 02/29/20 03:25 02/29/20 03:25 Labs: Abnormal Lab Results - Last 24 Hours (Table) 02/28/20 02/28/20 02/28/20 Range/Units 12:48 12:51 13:40 RBC (4.30-5.90) m/uL Hgb (13.0-17.5) gm/dL Hct (39.0-53.0) % MCH (25.0-35.0) pg MCHC (31.0-37.0) g/dL RDW (11.5-15.5) % Lymphocytes # (1.0-4.8) k/uL ABG pH (7.35-7.45) ABG pCO2 (35-45) mmHg ABG HCO3 (21-25) mmol/L ABG Total CO2 (19-24) mmol/L ABG O2 Saturation (94-97) % Potassium 3.3 L (3.5-5.1) mmol/L BUN (9-20) mg/dL Creatinine (0.66-1.25) mg/dL Glucose (74-99) mg/dL POC Glucose (mg/dL) 43 L 65 L (75-99) mg/dL Calcium (8.4-10.2) mg/dL Total Protein (6.3-8.2) g/dL Albumin (3.5-5.0) g/dL 02/28/20 02/28/20 02/29/20 Range/Units 16:14 23:58 03:25 RBC 3.28 L (4.30-5.90) m/uL Hgb 8.1 L (13.0-17.5) gm/dL Hct 26.8 L (39.0-53.0) % MCH 24.8 L (25.0-35.0) pg MCHC 30.4 L (31.0-37.0) g/dL RDW 18.5 H (11.5-15.5) % Lymphocytes # 0.7 L (1.0-4.8) k/uL ABG pH (7.35-7.45) ABG pCO2 (35-45) mmHg ABG HCO3 (21-25) mmol/L ABG Total CO2 (19-24) mmol/L ABG O2 Saturation (94-97) % Potassium (3.5-5.1) mmol/L BUN (9-20) mg/dL Creatinine (0.66-1.25) mg/dL Glucose (74-99) mg/dL POC Glucose (mg/dL) 57 L 106 H (75-99) mg/dL Calcium (8.4-10.2) mg/dL Total Protein (6.3-8.2) g/dL Albumin (3.5-5.0) g/dL 02/29/20 02/29/20 02/29/20 Range/Units 03:25 03:29 07:26 RBC (4.30-5.90) m/uL Hgb (13.0-17.5) gm/dL Hct (39.0-53.0) % MCH (25.0-35.0) pg MCHC (31.0-37.0) g/dL RDW (11.5-15.5) % Lymphocytes # (1.0-4.8) k/uL ABG pH 7.55 H (7.35-7.45) ABG pCO2 34 L (35-45) mmHg ABG HCO3 30 H (21-25) mmol/L ABG Total CO2 31 H (19-24) mmol/L ABG O2 Saturation 98.6 H (94-97) % Potassium (3.5-5.1) mmol/L BUN 67 H (9-20) mg/dL Creatinine 2.43 H (0.66-1.25) mg/dL Glucose 129 H (74-99) mg/dL POC Glucose (mg/dL) 145 H (75-99) mg/dL Calcium 7.7 L (8.4-10.2) mg/dL Total Protein 4.6 L (6.3-8.2) g/dL Albumin 2.2 L (3.5-5.0) g/dL 02/29/20 Range/Units 09:42 RBC (4.30-5.90) m/uL Hgb (13.0-17.5) gm/dL Hct (39.0-53.0) % MCH (25.0-35.0) pg MCHC (31.0-37.0) g/dL RDW (11.5-15.5) % Lymphocytes # (1.0-4.8) k/uL ABG pH (7.35-7.45) ABG pCO2 (35-45) mmHg ABG HCO3 (21-25) mmol/L ABG Total CO2 (19-24) mmol/L ABG O2 Saturation (94-97) % Potassium (3.5-5.1) mmol/L BUN (9-20) mg/dL Creatinine (0.66-1.25) mg/dL Glucose (74-99) mg/dL POC Glucose (mg/dL) 194 H (75-99) mg/dL Calcium (8.4-10.2) mg/dL Total Protein (6.3-8.2) g/dL Albumin (3.5-5.0) g/dL Assessment and Plan Assessment: 1 nondisplaced right femoral neck fracture status post fall. Patient is status post in situ screw fixation of nondisplaced right femoral neck fracture. 2 Acute CoVID 19 infection 3 postoperative hypoxic respiratory failure requiring ventilatory support, expected, considering the patient known history of acute covid 19 pneumonitis, and history of acute on chronic diastolic congestive heart failure. And known history of severe pulmonary hypertension 4 Severe pulmonary hypertension with an RVSP of 67 mmHg. 5 Acute anemia with hemoglobin is 6.9, received 1 unit packed red blood cells, hemoglobin today is 8.1 6 Acute on chronic renal failure with current creatinine 3.39, renal profile seems to be improving over the last few days, and creatinine today is 2.43. 7 Troponin leak 8 Elevated LFTs 9 History of dementia 10 Diabetes mellitus, type II 11 Hyperlipidemia 12 Hypertension 13 Chronic obstructive pulmonary disease, oxygen dependent 14 History of previous tobacco dependence of 42 years at 1 pack per day. Quit approximately 3 years ago 15 Poor overall functional performance based on the above-mentioned multiple comorbidities Recommendation: Continue ventilatory support, however will try patient off propofol, check weaning parameters, and possibly try the patient on it trial of weaning with pressure support of 8 and CPAP. Continue GI and DVT prophylaxis. Hold enteral feeding for now may consider extubating the patient today.. Continue diuretics. Continue propofol. Continue Lasix. Added to Zosyn 3.375 g every 12. Superimposed bacterial pneumonia on his Covid 19 pneumonitis is not entirely ruled out. We'll continue to follow. Critical care time is 32 minutes, not including time spent on procedures. Time with Patient: Greater than 30
--- NOTE | 2020-02-29 11:54 | P.PN ---
Subjective Progress Note Date: 02/29/20 Follow-up for acute kidney injury. Good urine output. On ventilator with minimal settings. Objective - Vital Signs Vital signs: Vital Signs Temp 97.9 F 02/29/20 08:00 Pulse 70 02/29/20 11:00 Resp 14 02/29/20 11:00 BP 109/56 02/29/20 11:00 Pulse Ox 99 02/29/20 11:00 Intake & Output 02/28/20 02/29/20 02/29/20 18:59 06:59 18:59 Intake Total 503.138 730 378.471 Output Total 1270 1075 475 Balance -766.862 -345 -96.529 Weight 67.9 kg 68.8 kg Intake: IV 240 240 106 Lactated Ringers 1,000 ml 240 240 100 @ 20 mls/hr IV .Q24H JN Rx#:[id number] pressure bag 6 Intake, IV Titration 173.138 100 152.471 Amount Propofol 1,000 mg In 173.138 100 152.471 Empty Bag 1 bag @ Titrate IV .Q0M JN Rx#: [id number] Tube Feeding 60 270 120 Other 30 120 Output: Urine 1270 1075 475 Other: Voiding Method Indwelling Catheter Indwelling Catheter Indwelling Catheter ABP, PAP, CO, CI - Last Documented Arterial Blood Pressure 102/61 - Exam Limited exam secondary to COVID pandemic and to limit PPE. - Labs CBC & Chem 7: 02/29/20 03:25 02/29/20 03:25 Labs: Abnormal Lab Results - Last 24 Hours (Table) 02/28/20 02/28/20 02/28/20 Range/Units 12:48 12:51 13:40 RBC (4.30-5.90) m/uL Hgb (13.0-17.5) gm/dL Hct (39.0-53.0) % MCH (25.0-35.0) pg MCHC (31.0-37.0) g/dL RDW (11.5-15.5) % Lymphocytes # (1.0-4.8) k/uL ABG pH (7.35-7.45) ABG pCO2 (35-45) mmHg ABG HCO3 (21-25) mmol/L ABG Total CO2 (19-24) mmol/L ABG O2 Saturation (94-97) % Potassium 3.3 L (3.5-5.1) mmol/L BUN (9-20) mg/dL Creatinine (0.66-1.25) mg/dL Glucose (74-99) mg/dL POC Glucose (mg/dL) 43 L 65 L (75-99) mg/dL Calcium (8.4-10.2) mg/dL Total Protein (6.3-8.2) g/dL Albumin (3.5-5.0) g/dL 02/28/20 02/28/20 02/29/20 Range/Units 16:14 23:58 03:25 RBC 3.28 L (4.30-5.90) m/uL Hgb 8.1 L (13.0-17.5) gm/dL Hct 26.8 L (39.0-53.0) % MCH 24.8 L (25.0-35.0) pg MCHC 30.4 L (31.0-37.0) g/dL RDW 18.5 H (11.5-15.5) % Lymphocytes # 0.7 L (1.0-4.8) k/uL ABG pH (7.35-7.45) ABG pCO2 (35-45) mmHg ABG HCO3 (21-25) mmol/L ABG Total CO2 (19-24) mmol/L ABG O2 Saturation (94-97) % Potassium (3.5-5.1) mmol/L BUN (9-20) mg/dL Creatinine (0.66-1.25) mg/dL Glucose (74-99) mg/dL POC Glucose (mg/dL) 57 L 106 H (75-99) mg/dL Calcium (8.4-10.2) mg/dL Total Protein (6.3-8.2) g/dL Albumin (3.5-5.0) g/dL 02/29/20 02/29/20 02/29/20 Range/Units 03:25 03:29 07:26 RBC (4.30-5.90) m/uL Hgb (13.0-17.5) gm/dL Hct (39.0-53.0) % MCH (25.0-35.0) pg MCHC (31.0-37.0) g/dL RDW (11.5-15.5) % Lymphocytes # (1.0-4.8) k/uL ABG pH 7.55 H (7.35-7.45) ABG pCO2 34 L (35-45) mmHg ABG HCO3 30 H (21-25) mmol/L ABG Total CO2 31 H (19-24) mmol/L ABG O2 Saturation 98.6 H (94-97) % Potassium (3.5-5.1) mmol/L BUN 67 H (9-20) mg/dL Creatinine 2.43 H (0.66-1.25) mg/dL Glucose 129 H (74-99) mg/dL POC Glucose (mg/dL) 145 H (75-99) mg/dL Calcium 7.7 L (8.4-10.2) mg/dL Total Protein 4.6 L (6.3-8.2) g/dL Albumin 2.2 L (3.5-5.0) g/dL 02/29/20 Range/Units 09:42 RBC (4.30-5.90) m/uL Hgb (13.0-17.5) gm/dL Hct (39.0-53.0) % MCH (25.0-35.0) pg MCHC (31.0-37.0) g/dL RDW (11.5-15.5) % Lymphocytes # (1.0-4.8) k/uL ABG pH (7.35-7.45) ABG pCO2 (35-45) mmHg ABG HCO3 (21-25) mmol/L ABG Total CO2 (19-24) mmol/L ABG O2 Saturation (94-97) % Potassium (3.5-5.1) mmol/L BUN (9-20) mg/dL Creatinine (0.66-1.25) mg/dL Glucose (74-99) mg/dL POC Glucose (mg/dL) 194 H (75-99) mg/dL Calcium (8.4-10.2) mg/dL Total Protein (6.3-8.2) g/dL Albumin (3.5-5.0) g/dL Assessment and Plan Assessment: #1 nonoliguric acute kidney injury secondary to ATN/CRS. #2 chronic kidney disease stage III with a baseline creatinine of 1.6-2.0 MG per DL. #3: COVID Positive #4 acute blood loss anemia #5 ventilator dependent respiratory failure #6 diastolic CHF with severe pulmonary hypertension #7 hypokalemia secondary to diuretic use Plan: #1 continue with Lasix 40 mg IV daily. #2 renal function stable and improving. #3 electrolyte replacement as per protocol check magnesium in the morning #4 avoid nephrotoxic agents and hypotensive episodes.
[2020-02-29 11:59] LABS: Glucose,Whole Blood 158 mg/dL (75-99)
--- NOTE | 2020-02-29 12:45 | P.PN ---
<GordonheatherMiltonLeo - Last Filed: 02/29/20 12:44> Progress Note - Text Progress Note Date: 02/29/20 Orthopedics: History of present illness: Patient is a 74-year-old male who is seen and examined in the ICU for follow-up evaluation in regards to his right. Patient is status post right in situ screw fixation for nondisplaced right transcervical femoral neck fracture. Patient is known to have tested positive for Covid-19. He is currently on a mechanical vent in the ICU. Nursing states they are planning to try to wean the patient off of the mechanical ventilator. Patient does not have multiple medical comorbidities including COPD, heart failure, and acute on chronic kidney disease. Physical Exam: Postoperative day #2 Patient is on a mechanical vent and is currently sedated resting quietly Inspection of the dressing over the right hip at the surgical site shows 1 small area of dried blood No significant active drainage from the surgical site Evidence of a lidocaine patch intact over the left groin. Pneumatic cuffs intact bilateral lower extremities Orellana catheter intact Assessment: Status post right in situ screw fixation for nondisplaced right transcervical femoral neck fracture Covid-19 positive currently on ventilator COPD Heart failure Acute on chronic kidney disease Plan: 1. Patient's admit status has been transferred to medicine. Patient has tested positive for Covid is currently on a mechanical vent per Covid protocol postoperatively. Patient continues to be sedated with mechanical vent intact. If the patient is able to be extubated, he may touchdown weightbearing on the ri ght lower extremity. We will continue to follow patient closely. Once the patient is clear for discharge by multiple medical providers, we will plan have the patient follow up with Dr. Juan Angel in approximately 2 weeks for further evaluation in the outpatient setting at [facility]. 2. Patient will continue with with further treatment and evaluation by multiple medical providers including medicine, pulmonology, and nephrology <Juan Angel - Last Filed: 02/29/20 20:19> Progress Note - Text The patient also has displaced right 7th and 8th lateral rib fractures, sustained in his original fall. Continue PRN pain management with lidoderm patches to this area.
[2020-02-29] MEDS: PIPERACILLIN-TAZOBACTAM 3.375 GM in SODIUM CHLORIDE 0.9% 100 ML IVPB SCH ×2 (13:10→20:36)
[2020-02-29 16:41] LABS: Glucose,Whole Blood 150 mg/dL (75-99)
[2020-02-29 19:44] LABS: Glucose,Whole Blood 146 mg/dL (75-99)
[2020-02-29] MEDS: DOCUSATE 100 MG CAP PO SCH (20:35)
[2020-02-29] MEDS: ATORVASTATIN 20 MG TAB PO SCH (20:36)
[2020-02-29] MEDS: INSULIN DETEMIR (LEVEMIR) 100 UNIT/ML SYR SQ SCH (20:37)
[2020-02-29 23:58] LABS: Glucose,Whole Blood 121 mg/dL (75-99)
[2020-03-01 03:37] LABS: Glucose,Whole Blood 81 mg/dL (75-99)
[2020-03-01] MEDS: INSULIN ASPART (NovoLOG) 100 UNIT/ML VIAL SQ SCH ×5 (03:41→21:05)
[2020-03-01 03:47] LABS: Anisocytosis Slight; Basophils # (A) 0.1 k/uL (0-0.2); Basophils % (A) 1 %; Eosinophils # (A) 0.1 k/uL (0-0.7); Eosinophils % (A) 1 %; HCT 27.2 % (39.0-53.0); HGB 7.9 gm/dL (13.0-17.5); Hypochromasia Marked; Lymphocytes # (A) 0.8 k/uL (1.0-4.8); Lymphocytes % (A) 8 %; MCH 24.2 pg (25.0-35.0); MCHC 29.1 g/dL (31.0-37.0); Mean Platelet Volume 9.7; Monocytes # (A) 0.7 k/uL (0-1.0); Monocytes % (A) 6 %; Neutrophils # (A) 8.5 k/uL (1.3-7.7); Neutrophils % (A) 82 %; Platelet Count 181 k/uL (150-450); Poikilocytosis Slight; RBC 3.28 m/uL (4.30-5.90); RDW 18.2 % (11.5-15.5); WBC 10.4 k/uL (3.8-10.6)
[2020-03-01 03:54] LABS: Albumin 2.3 g/dL (3.5-5.0); Calcium 7.7 mg/dL (8.4-10.2); Magnesium 2.4 mg/dL (1.6-2.3); Potassium 3.7 mmol/L (3.5-5.1); Total Bilirubin 0.5 mg/dL (0.2-1.3); Total Protein 4.9 g/dL (6.3-8.2)
[2020-03-01] MEDS: HYDROmorphone 0.5 MG/0.5 ML SYRINGE IVP PRN (04:44)
[2020-03-01] MEDS ORDERED: POTASSIUM CHLORIDE 20 MEQ in WATER FOR INJECTION 1 100ML.BAG IVPB STA (04:56)
[2020-03-01] MEDS: LACTATED RINGERS 1,000 ML IV SCH (05:25)
--- NOTE | 2020-03-01 08:05 | XR ---
EXAMINATION TYPE: XR chest 1V portable DATE OF EXAM: 03/01/2020 COMPARISON: 02/29/2020 HISTORY: Extubation. Shortness of breath. TECHNIQUE: Single frontal view of the chest is obtained. FINDINGS: Endotracheal and enteric tubes have been removed in the interim. Left subclavian approach central venous catheter is similar in position. Endotracheal and enteric tubes have improved in the i nterim. Slightly increasing multifocal right-sided opacities and retrocardiac airspace opacity. Enlar ged cardiomediastinal silhouette. Small loculated right pleural effusion. IMPRESSION: Extubation and removal of the enteric tube with slightly worsening right-sided multifoca l consolidations and medial retrocardiac opacity. Slightly worsening loculated small right pleural ef fusion.
[2020-03-01 08:56] LABS: Glucose,Whole Blood 133 mg/dL (75-99)
[2020-03-01] MEDS: TAMSULOSIN 0.4 MG CAP.ER.24H PO SCH (09:11)
[2020-03-01] MEDS: buPROPion XL 150 MG TAB.ER.24H PO SCH (09:11)
[2020-03-01] MEDS: LIDOCAINE 5% PATCH TOPICAL SCH (09:11)
[2020-03-01] MEDS: FUROSEMIDE 10 MG/ML 4 ML VIAL IV SCH (09:13)
[2020-03-01] MEDS: SENNOSIDES-DOCUSATE SODIUM 1 EACH TAB PO SCH ×2 (09:13→21:01)
[2020-03-01] MEDS: NITROGLYCERIN OINT 1 INCH/GM PACKET TOPICAL SCH ×3 (09:13→17:15)
[2020-03-01] MEDS: PANTOPRAZOLE 40 MG/10 ML VIAL IVP SCH (09:14)
[2020-03-01] MEDS: ENOXAPARIN 30 MG/0.3 ML SYRINGE SQ SCH (09:14)
[2020-03-01] MEDS: ESCITALOPRAM 10 MG TAB PO SCH (09:14)
[2020-03-01] MEDS: LINAGLIPTIN 5 MG TABLET PO SCH (09:14)
[2020-03-01] MEDS: METOPROLOL TARTRATE 50 MG TAB PO SCH ×2 (09:14→21:01)
[2020-03-01] MEDS: DOCUSATE 100 MG CAP PO SCH (09:14)
[2020-03-01] MEDS: PIPERACILLIN-TAZOBACTAM 3.375 GM in SODIUM CHLORIDE 0.9% 100 ML IVPB SCH ×2 (09:15→21:05)
--- NOTE | 2020-03-01 11:38 | P.PN ---
Subjective This is Bárbara Alvarado PA-C scribing on behalf of Dr. Jordan Chart review and observation only Dr. Jordan did not examine the patient because the patient is Covid positive He did discuss care with the nurse HPI/interval history Patient is a 74-year-old male with a history of diastolic heart failure, COPD, diabetes, hypertension and dyslipidemia presented from [facility] on the [facility] after suffering a fall and sustaining a nondisplaced right femoral neck fracture. He was found to be Covid positive. He underwent screw fixation of the nondisplaced right transcervical femoral neck fracture. He was successfully extubated. EXAMINATION Patient is afebrile, pulse in the 70s, respirations 15, blood pressure 131/59, oxygen saturation 96% on 4 L nasal cannula Patient is awake No examination was done as the patient is Covid positive REVIEW OF LABS, ECG WBC 10.4, hemoglobin 7.9, platelets 181, potassium 3.7, BUN 62, creatinine 2.33 IMPRESSION / ASSESSMENT: Acute on chronic diastolic heart failure Right femoral neck fracture status post fall in the shower, status post screw fixation of the nondisplaced right trans-cervical femoral neck fracture ARCADIO and CKD Covid 19 Anemia COPD on home oxygen Diabetes Hypertension Dyslipidemia Valvular heart disease Pulmonary hypertension PLAN: Patient is stable from a cardiac standpoint Continue current cardiac medication regimen including statins and Lasix Objective - Vital Signs Vital signs: Vital Signs Temp 98 F 03/01/20 04:00 Pulse 75 03/01/20 07:00 Resp 15 03/01/20 07:00 BP 131/59 03/01/20 07:00 Pulse Ox 96 03/01/20 07:00 Intake & Output 02/29/20 03/01/20 03/01/20 18:59 06:59 18:59 Intake Total 562.471 718 23 Output Total 975 720 40 Balance -412.529 -2 -17 Weight 68.8 kg Intake: IV 290 238 23 Lactated Ringers 1,000 ml 260 220 20 @ 20 mls/hr IV .Q24H JN Rx#:[id number] pressure bag 30 18 3 Intake, IV Titration 152.471 Amount Propofol 1,000 mg In 152.471 Empty Bag 1 bag @ Titrate IV .Q0M JN Rx#: [id number] Oral 480 Tube Feeding 120 Output: Urine 975 720 40 Other: Voiding Method Indwelling Catheter Indwelling Catheter ABP, PAP, CO, CI - Last Documented Arterial Blood Pressure 108/43 - Labs CBC & Chem 7: 03/01/20 03:30 03/01/20 03:30 Labs: Abnormal Lab Results - Last 24 Hours (Table) 02/29/20 02/29/20 02/29/20 Range/Units 09:42 11:57 16:40 RBC (4.30-5.90) m/uL Hgb (13.0-17.5) gm/dL Hct (39.0-53.0) % MCH (25.0-35.0) pg MCHC (31.0-37.0) g/dL RDW (11.5-15.5) % Neutrophils # (1.3-7.7) k/uL Lymphocytes # (1.0-4.8) k/uL Carbon Dioxide (22-30) mmol/L BUN (9-20) mg/dL Creatinine (0.66-1.25) mg/dL POC Glucose (mg/dL) 194 H 158 H 150 H (75-99) mg/dL Calcium (8.4-10.2) mg/dL Magnesium (1.6-2.3) mg/dL Total Protein (6.3-8.2) g/dL Albumin (3.5-5.0) g/dL 02/29/20 02/29/20 03/01/20 Range/Units 19:43 23:56 03:30 RBC 3.28 L (4.30-5.90) m/uL Hgb 7.9 L (13.0-17.5) gm/dL Hct 27.2 L (39.0-53.0) % MCH 24.2 L (25.0-35.0) pg MCHC 29.1 L (31.0-37.0) g/dL RDW 18.2 H (11.5-15.5) % Neutrophils # 8.5 H (1.3-7.7) k/uL Lymphocytes # 0.8 L (1.0-4.8) k/uL Carbon Dioxide (22-30) mmol/L BUN (9-20) mg/dL Creatinine (0.66-1.25) mg/dL POC Glucose (mg/dL) 146 H 121 H (75-99) mg/dL Calcium (8.4-10.2) mg/dL Magnesium (1.6-2.3) mg/dL Total Protein (6.3-8.2) g/dL Albumin (3.5-5.0) g/dL 03/01/20 Range/Units 03:30 RBC (4.30-5.90) m/uL Hgb (13.0-17.5) gm/dL Hct (39.0-53.0) % MCH (25.0-35.0) pg MCHC (31.0-37.0) g/dL RDW (11.5-15.5) % Neutrophils # (1.3-7.7) k/uL Lymphocytes # (1.0-4.8) k/uL Carbon Dioxide 34 H (22-30) mmol/L BUN 62 H (9-20) mg/dL Creatinine 2.33 H (0.66-1.25) mg/dL POC Glucose (mg/dL) (75-99) mg/dL Calcium 7.7 L (8.4-10.2) mg/dL Magnesium 2.4 H (1.6-2.3) mg/dL Total Protein 4.9 L (6.3-8.2) g/dL Albumin 2.3 L (3.5-5.0) g/dL
[2020-03-01 12:20] LABS: Glucose,Whole Blood 139 mg/dL (75-99)
[2020-03-01] MEDS: HYDROcodone/APAP 5-325MG 1 EACH TAB PO PRN ×2 (12:27→18:05)
--- NOTE | 2020-03-01 12:44 | PN ---
PROGRESS NOTE PULMONARY/CRITICAL CARE PROGRESS NOTE: CRITICAL CARE TIME: 32 minutes. This is a 74-year-old male with a history of nondisplaced right femoral neck fracture, status post fall, he had an in situ screw fixation of his nondisplaced right femoral neck fracture. He also tested positive for acute COVID-19 infection and suffers from postoperative hypoxemic respiratory failure. The patient was extubated on February 28. Currently, he is on 4 L nasal cannula and LR 20 mL an hour. The patient was admitted on February 22 and had his hip repaired on February 26. He is postop day #3. Anyway, the patient continues to do reasonably well. He has a history of hyperlipidemia, hypertension, COPD, previous tobacco dependence, dementia and acute anemia. In addition, he suffers from severe pulmonary hypertension. Current vital signs are reviewed. His temperature is 97.9, heart rate 74, respiratory rate 15, blood pressure 117/64 mean 81, saturations are 95% on 4 L. Appears in no acute distress. HEENT: Examination is grossly unremarkable. Nasal O2 in place. He does have some mild conversational dyspnea. NECK: Supple full range of motion. No adenopathy, thyromegaly or neck vein distention. CARDIOVASCULAR: Examination reveals regular rhythm and rate. Heart rate 74. S1, S2 normal. No distinct murmur noted. LUNGS: Reveal diffuse coarse bilateral rhonchi. Breath sounds equal. A few scattered wheezes. Some basilar crackles. ABDOMEN: Soft, bowel sounds are not noted. EXTREMITIES: Intact. Minimal edema. SKIN: Without rash. NEUROLOGIC: Examination is difficult to assess. The patient does have some baseline dementia. He does verbally respond although some things he says are inappropriate. He does move all 4 extremities. Microbiologic studies are negative. LAB DATA: Reviewed. White count 10.4, hemoglobin 7.9, hematocrit 27.2, platelet count 181,000. Sodium 143, potassium 3.7, chloride 104, CO2 is 34, anion gap is 5. BUN and creatinine were 62 and 2.33. The rest of the labs look okay. The patient had a chest x-ray dated March 01. It shows the endotracheal tube to be removed obviously since it was removed yesterday. It does show some right-sided infiltrates and some retrocardiac opacity with small right-sided pleural effusion. CURRENT MEDICATIONS: Reviewed. His medication list is quite extensive and includes Tylenol, Xanax, Artificial Tears, Lipitor, Wellbutrin, Colace, Lovenox, Lexapro, Lasix, Apresoline p.r.n., Brackney, Dilaudid, insulin, lidocaine patch, Tradjenta, metoprolol, Narcan, nitroglycerin ointment, Protonix, Zosyn, potassium replacement, Senokot, and Flomax. ASSESSMENT: 1. Postoperative day #3, status post in situ screw fixation of a nondisplaced right femoral neck fracture. 2. Acute COVID-19 infection. 3. Postoperative hypoxemic respiratory failure requiring intubation and mechanical ventilation with intubation on February 26 and extubation successfully on February 28. 4. History of acute on chronic diastolic congestive heart failure. 5. History of severe pulmonary hypertension with a right ventricular systolic pressure of 67 mmHg. 6. Acute postoperative anemia, status post 1 unit PRBCs. 7. Acute on chronic renal failure. 8. History of dementia. 9. History of type 2 diabetes mellitus. 10.Hyperlipidemia. 11.Hypertension. 12.Chronic obstructive pulmonary disease, oxygen dependent. 13.Prior history of heavy tobacco use. 14.General medical debility and poor overall functional performance. PLAN: Currently, the patient seems to be holding his own. He did pass a swallow evaluation. We are going to get an incentive spirometer into the room. Will recommend using the incentive spirometer every 1 hour while awake. Will also recommend deep breathing, coughing, clearing of secretions. Unnecessary medications are discontinued. His prognosis is guarded. Head of bed elevated at all times. Will continue to follow. CRITICAL CARE TIME: 32 minutes. HIMA / ELIASN: [id number] /
[2020-03-01] MEDS ORDERED: ONDANSETRON 4 MG/2 ML VIAL IVP PRN (12:46)
--- NOTE | 2020-03-01 15:17 | P.PN ---
Subjective Progress Note Date: 03/01/20 74-year-old male resident currently at [facility] subacute rehab ,known to the practice with history of severe pulmonary hypertension, hypertension hyperlipidemia diabetes mellitus type 2 former smoker anxiety COPD stage III chronic renal insufficiency, recent pneumonia, early dementia ([place] cog nitive scoring at [facility] 11 out of 30), admitted with right hip fracture status post fall in the shower, sustaining multiple skin tears/abrasions to right ear, right chest, bilateral forearms, riight hip. Right ear required sutures. Head and C-spine reported no spine fracture spine fracture, no acute intracranial abnormality-unchanged from prior exam. Pelvis x-ray reported nondisplaced right femoral neck fracture. EKG reportedly accelerated junctional rhythm with nonspecific ST-T wave abnormalities. Troponins 0.047, 0.054. BNP 25,000 Tested positive for coronavirus. Chest x-ray reporting CHF with pleural effusions, pulmonary edema worse than last exam .Maintaining O2 sats in the low 90s on 4 L nasal cannula. Afebrile, WBC 10, hemoglobin 6.9, platelets 174. sodium 138 potassium 4.2 bicarb 14, creatinine 3.51 (baseline around 1.9).glucose 146, mildly elevated LFTs .Evaluated by orthopedic surgery, discussing surgical repair pending pulmonary, cardiology, medical clearance. 02/25/2020 Diuresing on Lasix IV push, with 24-hour I&O reflecting overnigiht urine output of 600 MLS. Renal function worsening, creatinine up to 3.85 . O2 requirement increased up to 6 L nasal cannula, maintaining O2 sats in the 90s. Reports nonproductive cough. Chest x-ray reporting improving bilateral infiltrates greater on right . Decreasing edema. complaints of hip pain, receiving Dilaudid. Hemoglobin 8.3 status post 1 unit packed RBCs. Orellana with hematuria. Afebrile, WBC increased to 12.9. 02/26/2020 yesterday diuretics decreased, but 24-hour I&O inaccurate. Significant lower extremity edema persists. Chest x-ray reporting worsening, developing CHF exacerbation, small lateral pleural effusions-right greater than left with increasing interstitial edema. Continues on 6 L nasal cannula maintaining O2 sats in the 90s. Remains wheezy but today able to speak in sentences without shortness of breath. Renal function unchanged. Complains of constipation. Reports no bowel movement 2 days. Denies chest pain, palpitations. Complains more of right-sided rib cage pain, hip pain currently controlled. Telemetry sinus rhythm. 02/27/2020 maintained on Lasix IV push daily , 24-hour I&O reflecting a gain of 0.5 kg . Urine output increasing. Creatinine down to 3.39 .chest x-ray reporting worsening multifocal right-sided airspace disease with stable bilateral pleural effusions and mild pulmonary vascular congestion. Continues on 6 L nasal cannula maintaining O2 sats in the 90s.VSS, afebrile. Reports no bowel movement, Dulcolax suppository ordered for after surgery. OR pending. 03/01/2020 postop day #3 status post right in situ screw fixation for nondisplaced right transcervical femoral neck fracture .extubated yesterday to 4 L nasal cannula, maintaining O2 sats in the 90s. Chest x-ray reporting slightly worsening right-sided multifocal consolidations and medial retrocardiac opacity, slightly worsening loculated small right pleural effusion. Significant weakness, weak cough. PT pending. Afebrile, normal WBC. Hemoglobin 7.9. Renal function improving, trending down to 2.33. Blood sugars controlled, tolerating full liquid diet. Pain currently controlled. Objective - Vital Signs Vital signs: Vital Signs Temp 97.9 F 03/01/20 08:00 Pulse 76 03/01/20 10:00 Resp 16 03/01/20 10:00 BP 114/60 03/01/20 10:00 Pulse Ox 93 L 03/01/20 09:00 Intake & Output 02/29/20 03/01/20 03/01/20 18:59 06:59 18:59 Intake Total 562.471 718 122 Output Total 975 720 265 Balance -412.529 -2 -143 Weight 68.8 kg 68.8 kg Intake: IV 290 238 122 0.9 30 Lactated Ringers 1,000 ml 260 220 80 @ 20 mls/hr IV .Q24H JN Rx#:[id number] pressure bag 30 18 12 Intake, IV Titration 152.471 Amount Propofol 1,000 mg In 152.471 Empty Bag 1 bag @ Titrate IV .Q0M JN Rx#: [id number] Oral 480 Tube Feeding 120 Output: Urine 975 720 265 Other: Voiding Method Indwelling Catheter Indwelling Catheter ABP, PAP, CO, CI - Last Documented Arterial Blood Pressure 125/46 - Exam General: Sitting up in bed, no acute distress HEENT: [PERRL. EOMI. No pharyngeal erythema or exudate.] Neck: [No adenopathy. No JVD Cardiac: [Heart regular in rate and rhythm. No S3. No S4. No clicks, rubs. No murmur.] Lungs: Bilateral bases diminished, fine bibasilar crackles, coarse scattered rhonchi, no wheezing Abdomen: [Soft, mild mid epigastric tenderness ,No mass. No organomegaly. Bowel sounds presnt and normoactive in all 4 quadrants.] Extremes: Right hip dressing clean dry and intact, tender, sensation grossly intact, decreasing edema bilateral lower extremities, no clubbing, no cyanosis, positive pulses Skin: [Right ear lacerations/scabbed with sutures, bilateral forearms with skin tears/abrasions .left hand with first and second digit missing .No rash.] Neurologic: [No lateralizing deficits. CN II - XII grossly intact.] - Labs CBC & Chem 7: 03/01/20 03:30 03/01/20 03:30 Labs: Abnormal Lab Results - Last 24 Hours (Table) 02/29/20 02/29/20 02/29/20 Range/Units 11:57 16:40 19:43 RBC (4.30-5.90) m/uL Hgb (13.0-17.5) gm/dL Hct (39.0-53.0) % MCH (25.0-35.0) pg MCHC (31.0-37.0) g/dL RDW (11.5-15.5) % Neutrophils # (1.3-7.7) k/uL Lymphocytes # (1.0-4.8) k/uL Carbon Dioxide (22-30) mmol/L BUN (9-20) mg/dL Creatinine (0.66-1.25) mg/dL POC Glucose (mg/dL) 158 H 150 H 146 H (75-99) mg/dL Calcium (8.4-10.2) mg/dL Magnesium (1.6-2.3) mg/dL Total Protein (6.3-8.2) g/dL Albumin (3.5-5.0) g/dL 02/29/20 03/01/20 03/01/20 Range/Units 23:56 03:30 03:30 RBC 3.28 L (4.30-5.90) m/uL Hgb 7.9 L (13.0-17.5) gm/dL Hct 27.2 L (39.0-53.0) % MCH 24.2 L (25.0-35.0) pg MCHC 29.1 L (31.0-37.0) g/dL RDW 18.2 H (11.5-15.5) % Neutrophils # 8.5 H (1.3-7.7) k/uL Lymphocytes # 0.8 L (1.0-4.8) k/uL Carbon Dioxide 34 H (22-30) mmol/L BUN 62 H (9-20) mg/dL Creatinine 2.33 H (0.66-1.25) mg/dL POC Glucose (mg/dL) 121 H (75-99) mg/dL Calcium 7.7 L (8.4-10.2) mg/dL Magnesium 2.4 H (1.6-2.3) mg/dL Total Protein 4.9 L (6.3-8.2) g/dL Albumin 2.3 L (3.5-5.0) g/dL 03/01/20 Range/Units 08:56 RBC (4.30-5.90) m/uL Hgb (13.0-17.5) gm/dL Hct (39.0-53.0) % MCH (25.0-35.0) pg MCHC (31.0-37.0) g/dL RDW (11.5-15.5) % Neutrophils # (1.3-7.7) k/uL Lymphocytes # (1.0-4.8) k/uL Carbon Dioxide (22-30) mmol/L BUN (9-20) mg/dL Creatinine (0.66-1.25) mg/dL POC Glucose (mg/dL) 133 H (75-99) mg/dL Calcium (8.4-10.2) mg/dL Magnesium (1.6-2.3) mg/dL Total Protein (6.3-8.2) g/dL Albumin (3.5-5.0) g/dL Assessment and Plan Assessment: (1) status post right in situ screw fixation for nondisplaced right transcervical femoral neck fracture , status post fall (2) acute hypoxic respiratory failure secondary to acute on chronic CHF exacerbation, diastolic dysfunction, EF 50-55% (3) severe pulmonary hypertension (4)acute COVID- 19 infection , possible acute COVID-19 Pneumonia. (5) Acute on chronic renal failure Current Visit: No Status: Acute Code(s): N17.9 - ACUTE KIDNEY FAILURE, UN SPECIFIED SNOMED Code(s): 55161174 (6) Acute anemia, status post 1 unit packed RBCs (7) elevated troponin, cardiology following (8) Diabetes mellitus Current Visit: No Status: Acute Code(s): E11.9 - TYPE 2 DIABETES MELLITUS WITHOUT COMPLICATIONS SNOMED Code(s): 53626487 (9)Elevated LFTs , mild (10) Hypertension Current Visit: No Status: Acute Code(s): I10 - ESSENTIAL (PRIMARY) HYPERTENSION SNOMED Code(s): 88801545 (11) chronic hypoxic respiratory failure secondary to COPD , wears 2Lnc at home (12)Cognitive impairment, recent [facility] cognitive assessment [facility] reported 11 out of 30. Current Visit: Yes Status: Acute Code(s): R41.89 - OTH SYMPTOMS AND SIGNS W COGNITIVE FUNCTIONS AND AWARENESS SNOMED Code(s): 210369313 (13) prior nicotine dependence (14) troponin leak, acute coronary syndrome ruled out as per cardiology, possibly related to CHF and renal failure Plan: Continue on current medication regime ,monitoring and symptomatic treatment. Pain management, PT/OT. Weak cough, cOntinue aggressive pulmonary toileting with Nebulized bronchodilators. Diuretics as per cardiology. Prognosis guarded given multiple complex medical issues. The impression and plan of care has been dictated as directed. : I performed a history and examination of this patient, discussed the same with the dictator. I agree with the dictator's note ,documented as a scribe. Any additional findings or plans will be noted.
--- NOTE | 2020-03-01 15:50 | PN ---
PROGRESS NOTE Patient is seen for followup for acute kidney injury on top of chronic kidney disease. I have discussed with nursing staff. Patient is doing fairly okay. He was extubated yesterday. He is weak but able to tolerate oral intake. The patient is not on any IV fluids. He is currently maintained on Lasix 40 mg IV daily. This morning, vital signs are reviewed. Blood pressure was 117/64, heart rate 74 per minute, he is afebrile. Few basal crackles as per nursing staff. No significant edema. [employer] exam grossly intact. Patient has generalized weakness. LABS: Show a hemoglobin of 7.9, sodium 143, potassium 3.7, chloride 104, CO2 is 34, BUN 62, serum creatinine 2.3 mg/dL. ASSESSMENT: 1. Acute kidney injury, ATN currently nonoliguric and improving. The patient is maintained on Lasix 40 mg IV daily, which we will continue. 2. Chronic kidney disease stage III..baseline creatinine 1.6-2 mg/dL secondary to nephrosclerosis. 3. COVID pneumonia. 4. Hypoxic respiratory failure, currently extubated and off of the vent. 5. Acute blood loss anemia. 6. Diastolic congestive heart failure with severe pulmonary hypertension. 7. Hypokalemia, secondary to diuretics. PLAN: Continue with current dose of IV Lasix. Monitor electrolytes. Replace potassium. Check iron studies if not done recently. MMODL / IJN: [id number] /
[2020-03-01 17:06] LABS: Glucose,Whole Blood 150 mg/dL (75-99)
--- NOTE | 2020-03-01 17:47 | P.PN ---
Subjective Progress Note Date: 03/01/20 The patient is seen and examined bedside this morning in the ICU. He is status- post in-situ screw fixation of nondisplaced right transcervical femoral neck fracture on 02/27/20. Patient was extubated yesterday afternoon. Patient states the pain in his right hip is well-controlled. Per nursing, the patient was up and sitting on the side of the bed yesterday. He is complaining of mild pain along the right ribs. The patient has no new complaints in regard to his right hip today. Vital signs stable. Objective - Vital Signs Vital signs: Vital Signs Temp 98.2 F 03/01/20 16:00 Pulse 87 03/01/20 17:00 Resp 14 03/01/20 17:00 BP 155/75 03/01/20 17:00 Pulse Ox 95 03/01/20 17:00 Intake & Output 02/29/20 03/01/20 03/01/20 18:59 06:59 18:59 Intake Total 562.471 718 708 Output Total 975 720 900 Balance -412.529 -2 -192 Weight 68.8 kg 74.4 kg Intake: IV 290 238 308 0.9 90 Lactated Ringers 1,000 ml 260 220 200 @ 20 mls/hr IV .Q24H JN Rx#:[id number] pressure bag 30 18 18 Intake, IV Titration 152.471 Amount Propofol 1,000 mg In 152.471 Empty Bag 1 bag @ Titrate IV .Q0M JN Rx#: [id number] Oral 480 400 Tube Feeding 120 Output: Urine 975 720 900 Other: Voiding Method Indwelling Catheter Indwelling Catheter Indwelling Catheter ABP, PAP, CO, CI - Last Documented Arterial Blood Pressure 148/54 - Exam On examination, the patient is sitting in bed in no apparent distress. Nasal cannula in place. Conversational dyspnea noted. On inspection of the right lower extremity, there is a clean, dry, intact dressing in place on the right hip. A small amount of blood is noted on the dressing. No surrounding erythema, warmth, fluctuance. No skin discoloration. The extremity is warm and well perfused with brisk capillary refill. Dorsalis pedis pulse +2. He has good strength and range of motion of the right ankle. Motor and sensory function appear intact of the right lower extremity. - Labs CBC & Chem 7: 03/01/20 03:30 03/01/20 03:30 Labs: Abnormal Lab Results - Last 24 Hours (Table) 02/29/20 02/29/20 03/01/20 Range/Units 19:43 23:56 03:30 RBC 3.28 L (4.30-5.90) m/uL Hgb 7.9 L (13.0-17.5) gm/dL Hct 27.2 L (39.0-53.0) % MCH 24.2 L (25.0-35.0) pg MCHC 29.1 L (31.0-37.0) g/dL RDW 18.2 H (11.5-15.5) % Neutrophils # 8.5 H (1.3-7.7) k/uL Lymphocytes # 0.8 L (1.0-4.8) k/uL Carbon Dioxide (22-30) mmol/L BUN (9-20) mg/dL Creatinine (0.66-1.25) mg/dL POC Glucose (mg/dL) 146 H 121 H (75-99) mg/dL Calcium (8.4-10.2) mg/dL Magnesium (1.6-2.3) mg/dL Total Protein (6.3-8.2) g/dL Albumin (3.5-5.0) g/dL 03/01/20 03/01/20 03/01/20 Range/Units 03:30 08:56 12:19 RBC (4.30-5.90) m/uL Hgb (13.0-17.5) gm/dL Hct (39.0-53.0) % MCH (25.0-35.0) pg MCHC (31.0-37.0) g/dL RDW (11.5-15.5) % Neutrophils # (1.3-7.7) k/uL Lymphocytes # (1.0-4.8) k/uL Carbon Dioxide 34 H (22-30) mmol/L BUN 62 H (9-20) mg/dL Creatinine 2.33 H (0.66-1.25) mg/dL POC Glucose (mg/dL) 133 H 139 H (75-99) mg/dL Calcium 7.7 L (8.4-10.2) mg/dL Magnesium 2.4 H (1.6-2.3) mg/dL Total Protein 4.9 L (6.3-8.2) g/dL Albumin 2.3 L (3.5-5.0) g/dL 03/01/20 Range/Units 17:04 RBC (4.30-5.90) m/uL Hgb (13.0-17.5) gm/dL Hct (39.0-53.0) % MCH (25.0-35.0) pg MCHC (31.0-37.0) g/dL RDW (11.5-15.5) % Neutrophils # (1.3-7.7) k/uL Lymphocytes # (1.0-4.8) k/uL Carbon Dioxide (22-30) mmol/L BUN (9-20) mg/dL Creatinine (0.66-1.25) mg/dL POC Glucose (mg/dL) 150 H (75-99) mg/dL Calcium (8.4-10.2) mg/dL Magnesium (1.6-2.3) mg/dL Total Protein (6.3-8.2) g/dL Albumin (3.5-5.0) g/dL Assessment and Plan Assessment: Status post In-situ screw fixation of nondisplaced right transcervical femoral neck fracture. Postoperative day #3. Seventh and eighth displaced rib fractures COVID-19 + Plan: -Toe-touch weightbearing of the right lower extremity. Physical therapy for mobilization. - Dressing changes daily and as needed if the dressing becomes saturated. - Continue Lidoderm patches for right rib fractures. - Continue medical management per internal medicine and other multiple medical specialties following. - Upon discharge, the patient will follow-up with Dr. Angel in 4 weeks in the office. We will plan on staple removal in 2 weeks, to be performed by nursing staff either via home health care or a rehab center, depending on patient's discharge plans. - We will continue to follow patient closely while he remains inpatient. Patient discussed with Dr. Angel.
[2020-03-01 18:53] LABS: % Iron Saturation 3.36 (15.00-50.00)
[2020-03-01 21:00] LABS: Glucose,Whole Blood 189 mg/dL (75-99)
[2020-03-01] MEDS: INSULIN DETEMIR (LEVEMIR) 100 UNIT/ML SYR SQ SCH (21:01)
[2020-03-01] MEDS: ATORVASTATIN 20 MG TAB PO SCH (21:01)
[2020-03-02] MEDS: NITROGLYCERIN OINT 1 INCH/GM PACKET TOPICAL SCH ×3 (00:01→17:14)
[2020-03-02] MEDS: HYDROcodone/APAP 5-325MG 1 EACH TAB PO PRN ×5 (00:19→22:25)
[2020-03-02 04:50] LABS: Anisocytosis Slight; Basophils % (A) 0 %; Eosinophils # (A) 0.3 k/uL (0-0.7); Eosinophils % (A) 3 %; HCT 27.1 % (39.0-53.0); HGB 7.9 gm/dL (13.0-17.5); Hypochromasia Marked; Lymphocytes # (A) 0.9 k/uL (1.0-4.8); Lymphocytes % (A) 9 %; MCH 24.7 pg (25.0-35.0); MCHC 29.1 g/dL (31.0-37.0); MCV 84.8 fL (80.0-100.0); Monocytes # (A) 0.7 k/uL (0-1.0); Monocytes % (A) 7 %; Neutrophils # (A) 7.7 k/uL (1.3-7.7); Neutrophils % (A) 79 %; Platelet Count 197 k/uL (150-450); Poikilocytosis Slight; RBC 3.19 m/uL (4.30-5.90); RDW 17.5 % (11.5-15.5); WBC 9.8 k/uL (3.8-10.6)
[2020-03-02 05:04] LABS: Calcium 7.6 mg/dL (8.4-10.2); Potassium 3.9 mmol/L (3.5-5.1)
[2020-03-02] MEDS: POTASSIUM CHLORIDE 10 MEQ in WATER FOR INJECTION 1 100ML.BAG IVPB SCH ×2 (06:22→09:07)
[2020-03-02] MEDS: LACTATED RINGERS 1,000 ML IV SCH (06:23)
[2020-03-02 06:30] LABS: Glucose,Whole Blood 97 mg/dL (75-99)
[2020-03-02] MEDS: INSULIN ASPART (NovoLOG) 100 UNIT/ML VIAL SQ SCH ×4 (06:31→22:45)
--- NOTE | 2020-03-02 07:27 | XR ---
EXAMINATION TYPE: XR chest 1V portable DATE OF EXAM: 03/02/2020 HISTORY: Shortness of breath. COMPARISON: 03/01/2020 TECHNIQUE: Single view of the chest is submitted. FINDINGS: Left subclavian approach central venous catheter is similar in position. Bilateral airspace disease right greater than left with pleural effusions remain essentially unchange d although there is improved aeration right upper lobe. The heart is stable. Hilar and mediastinal structures are within normal limits. Degenerative changes are seen of the dorsal spine. IMPRESSION: 1. Bilateral airspace disease right greater than left with pleural effusions remain essentially unch anged although there is improved aeration right upper lobe.
[2020-03-02] MEDS: SENNOSIDES-DOCUSATE SODIUM 1 EACH TAB PO SCH ×2 (08:57→22:48)
[2020-03-02] MEDS: DOCUSATE 100 MG CAP PO SCH (08:57)
[2020-03-02] MEDS: PIPERACILLIN-TAZOBACTAM 3.375 GM in SODIUM CHLORIDE 0.9% 100 ML IVPB SCH ×2 (09:06→22:26)
[2020-03-02] MEDS: PANTOPRAZOLE 40 MG/10 ML VIAL IVP SCH (09:06)
[2020-03-02] MEDS: FUROSEMIDE 10 MG/ML 4 ML VIAL IV SCH (09:06)
[2020-03-02] MEDS: ENOXAPARIN 30 MG/0.3 ML SYRINGE SQ SCH (09:07)
[2020-03-02] MEDS: buPROPion XL 150 MG TAB.ER.24H PO SCH (09:07)
[2020-03-02] MEDS: TAMSULOSIN 0.4 MG CAP.ER.24H PO SCH (09:08)
[2020-03-02] MEDS: METOPROLOL TARTRATE 50 MG TAB PO SCH ×2 (09:08→22:25)
[2020-03-02] MEDS: ESCITALOPRAM 10 MG TAB PO SCH (09:09)
[2020-03-02] MEDS: LIDOCAINE 5% PATCH TOPICAL SCH (09:09)
[2020-03-02] MEDS: LINAGLIPTIN 5 MG TABLET PO SCH (09:10)
--- NOTE | 2020-03-02 11:10 | P.PN ---
Subjective Progress Note Date: 03/02/20 Principal diagnosis: Fall, nondisplaced right femoral neck fracture, acute on chronic hypoxic respiratory failure related to exacerbation of CHF This is a very pleasant 74-year-old gentleman who follows with Dr. Akhtar as his primary care provider. He is a history of diabetes mellitus, type II, hypertension, hyperlipidemia, anxiety, previous chronic tobacco dependence and chronic obstructive pulmonary disease, on home oxygen at 2 L. He had recently in November 2019 been admitted for an acute exacerbation of chronic congestive heart failure secondary to diastolic dysfunction. He was subsequent discharged to [facility] on the [place] where he has been staying for rehabilitation. Last evening he was brought to the emergency room after sustaining a fall in the shower. He had multiple abrasions on his skin. Laceration to the right ear requiring sutures,, trauma to the right chest and a nondisplaced right femoral neck fracture. Computed tomography scan of the brain and C-spine revealed no acute intracranial abnormalities. No cervical spine fractures. He had been seen and evaluated by orthopedic surgery and were considering repair of the right hip fracture. We have been asked to consult for preoperative clearance. He is seen today in consultation on the regular medical floor. He is currently awake and alert in no acute distress. He is maintaining O2 saturation in the low 90s on 4 L/m per nasal cannula. Chest x-ray showed evidence of congestive heart failure with pleural effusions and pulmonary edema which is worse compared to previous in November 2019. White count 10.0. Hemoglobin 6.9. Platelet count 174. Lymphocytes 0.4. INR 1.2. Sodium 138. Potassium 4.2. Bicarb 14. Creatinine 3.51. Glucose 146. AST 83. ALT 121. Troponin 0.047, 0.054. ProBNP 25,000. Coronavirus is detected. On 02/25/2020 patient seen in follow-up on a general medical floor, is lethargic on today's exam, but arousable, able to give simple few word answers, denies any acute distress, he is currently on 6 L of oxygen and the pulse ox of 92-95%, his been afebrile. Patient has received a dose of Lasix yesterday with 20 mg of IV Lasix, and again in the afternoon with 40 mg of Lasix, today's chest x-ray shows improving bilateral lung infiltrates remaining greater on the right. Renal profile is slightly worse today, with BUN of 84, and creatinine is 3.85, white blood cell count of 12.9, hemoglobin of 8.3, he did receive a unit of packed red blood cells yesterday for a hemoglobin of 6.9. Electrolytes are within normal limits. Lung sounds reveal diminished breath sounds at the bases, however patient still has significant lower extremity edema. On 02/26/2020 patient seen in follow-up on general medical floor, he states he is not feeling as good today, feels more short of breath. He is awake, answering questions appropriately, he is currently on 6 L of oxygen with a pulse ox of 90-99%, hemodynamically stable, does not appear to be in any acute distress, is resting in bed. His been diuresed, still has significant lower extremity edema, however his mucous membranes are dry, patient is thirsty, his renal profile today is relatively stable, B1 is 89, and creatinine is 3.86 electrolytes are within normal limits. No complaints of chest pain, his weight is up by 2 kg in the last 24 hours, he is in positive balance, nephrology is following, and contact IV Lasix to once daily. Today's chest x-ray shows developing CHF exacerbation with a small right greater than left pleural effusions and increasing interstitial edema. We'll keep same dose of IV Lasix, continue monitoring patient's level of dyspnea, and FiO2 requirement. On 03/02/2020 patient seen in follow-up in the intensive care unit. This is postoperative day 2 status post in situ screw fixation of nondisplaced right transcervical femoral neck fracture. Patient was successfully extubated on 02/29/2020, tolerating extubation very well so far, denies any pain, and 2 L of oxygen his pulse ox is 89-96%, vital signs are stable, he is afebrile, he is awake and alert, in 7 questions appropriately, denies any shortness of breath, denies any cough or congestion, today's chest x-ray has been reviewed, showing bilateral airspace disease right greater than left with pleural effusions that are about the same compared to yesterday's chest x-ray with some improved aeration in the right upper lobe. Patient remains on daily dose of IV Lasix at 40 mg, on Zosyn for empiric antibiotic coverage, vital signs have been stable, his been afebrile. Today's labs of abdomen reviewed showing a white blood cell count of 9.8, hemoglobin is 7.9, sodium is 140, potassium 3.9, chloride is 103, CO2 35, BUN is 59 creatinine is 2.03. Patient is comfortable, orthopedic surgery is following, nephrology service is following, no profile is improving, FiO2 is down to 2 L. No acute events overnight, anticipate transferring patient out of the intensive care unit to a regular floor, IV fluids are 0.9 normal sinus at a rate of 10, and lactate of Ringer's at a rate of 20 ML. Patient is tolerating oral intake, no nausea vomiting or diarrhea. Objective - Vital Signs Vital signs: Vital Signs Temp 98.8 F 03/02/20 08:00 Pulse 87 03/02/20 10:00 Resp 19 03/02/20 10:00 BP 153/71 03/02/20 09:00 Pulse Ox 89 L 03/02/20 10:00 Intake & Output 03/01/20 03/02/20 03/02/20 18:59 06:59 18:59 Intake Total 768 1094 Output Total 1050 1095 Balance -282 -1 Weight 74.4 kg Intake: IV 368 450 0.9 110 150 Lactated Ringers 1,000 ml 240 300 @ 20 mls/hr IV .Q24H JN Rx#:[id number] pressure bag 18 Intake, IV Titration 100 Amount Piperacillin-Tazobactam 3 100 .375 gm In Sodium Chloride 0.9% 100 ml @ 25 mls/hr IVPB Q12HR JN Rx #:[id number] Oral 400 544 Output: Urine 1050 1095 Other: Voiding Method Indwelling Catheter Indwelling Catheter Indwelling Catheter ABP, PAP, CO, CI - Last Documented Arterial Blood Pressure 148/54 - Exam GENERAL EXAM: Awake and alert, 74-year-old white male, on 2 L of oxygen with a pulse ox of 89-96% comfortable in no apparent distress. HEAD: Normocephalic/atraumatic. EYES: Normal reaction of pupils, equal size. Conjunctiva pink, sclera white. NOSE: Clear with pink turbinates. THROAT: No erythema or exudates. NECK: No masses, no JVD, no thyroid enlargement, no adenopathy. CHEST: No chest wall deformity. Symmetrical expansion. LUNGS: Equal air entry with no crackles, wheeze, rhonchi or dullness. CVS: Regular rate and rhythm, normal S1 and S2, no gallops, no murmurs, no rubs ABDOMEN: Soft, nontender. No hepatosplenomegaly, normal bowel sounds, no guarding or rigidity. EXTREMITIES: No clubbing, no cyanosis, 2+ pulses and upper and lower extremities. Tenderness in the right hip, with 1+ lower extremity edema. M issing first and second digits of the left hand MUSCULOSKELETAL: Muscle strength and tone normal. SPINE: No scoliosis or deformity SKIN: No rashes CENTRAL NERVOUS SYSTEM: Somnolent. But responsive No focal deficits, tone is normal in all 4 extremities. - Labs CBC & Chem 7: 03/02/20 04:30 03/02/20 04:30 Labs: Abnormal Lab Results - Last 24 Hours (Table) 03/01/20 03/01/20 03/01/20 Range/Units 03:30 12:19 17:04 RBC (4.30-5.90) m/uL Hgb (13.0-17.5) gm/dL Hct (39.0-53.0) % MCH (25.0-35.0) pg MCHC (31.0-37.0) g/dL RDW (11.5-15.5) % Lymphocytes # (1.0-4.8) k/uL Carbon Dioxide (22-30) mmol/L BUN (9-20) mg/dL Creatinine (0.66-1.25) mg/dL POC Glucose (mg/dL) 139 H 150 H (75-99) mg/dL Calcium (8.4-10.2) mg/dL Iron 8 L (65-175) ug/dL % Saturation 3.36 L (15.00-50.00) 03/01/20 03/02/20 03/02/20 Range/Units 20:59 04:30 04:30 RBC 3.19 L (4.30-5.90) m/uL Hgb 7.9 L (13.0-17.5) gm/dL Hct 27.1 L (39.0-53.0) % MCH 24.7 L (25.0-35.0) pg MCHC 29.1 L (31.0-37.0) g/dL RDW 17.5 H (11.5-15.5) % Lymphocytes # 0.9 L (1.0-4.8) k/uL Carbon Dioxide 35 H (22-30) mmol/L BUN 59 H (9-20) mg/dL Creatinine 2.03 H (0.66-1.25) mg/dL POC Glucose (mg/dL) 189 H (75-99) mg/dL Calcium 7.6 L (8.4-10.2) mg/dL Iron (65-175) ug/dL % Saturation (15.00-50.00) Assessment and Plan Plan: Assessment: #1. Acute nondisplaced right femoral neck fracture status post fall, status post in situ screw fixation of his nondisplaced right femoral neck fracture, postoperative day #3. Right-sided chest wall pain, skin abrasions and laceration to the right ear requiring sutures #2. Acute hypoxic respiratory failure, multifactorial, related to acute COVID 19 infection, and acute exacerbation of diastolic congestive heart failure, requiring mechanical ventilation after his surgery for repair of his right hip fracture, intubated on 02/27/2020, extubated on 02/29/2020. All remaining extubation well so far #3. Acute exacerbation of diastolic congestive heart failure with the documented systolic function of 50-55% on the echocardiogram from 12/25/2019 #4. Acute kidney injury, improving #5. Chronic kidney disease stage IIIB #6. Acute anemia with a hemoglobin of 6.9, patient has been transfused with 1 unit of packed red blood cells #7. Hypertension #8. Chronic hypercapnic and hypoxemic respiratory failure related to COPD #9. Diabetes mellitus type 2 #10. History of depression #11. 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 Valvular heart disease, moderate mitral regurgitation, moderate to severe tricuspid regurgitation, and severe pulmonary hypertension with a right-sided pressures of 67.7 mmHg #13. Troponin leak, possibly related to acute exacerbation of CHF, and acute on chronic renal failure Plan: Continue current antibiotics, continue current dose of IV Lasix, today's chest x-ray shows some improvement in aeration of the right upper lobe, still shows airspace disease bilaterally right greater than left. Vital signs are stable, FiO2 is down to 2 L, no acute distress, no fever or chills, continue Zosyn, increase activity as tolerated, PT and OT consultation. Renal profile is improving, no acute events overnight, encourage deep breathing and coughing stable for transfer out of the intensive care unit today to 4 S. medical surgical floor I performed a history & physical examination of the patient and discussed their management with my nurse practitioner, Valorie Gilbert. I reviewed the nurse practitioner's note and agree with the documented findings and plan of care. Lung sounds are positive for diminished breath sounds. The findings and the impression was discussed with the patient. I attest to the documentation by the nurse practitioner. Time with Patient: Less than 30
--- NOTE | 2020-03-02 11:23 | P.PN ---
Progress Note - Text Progress Note Date: 03/02/20 Orthopedics: History of present illness: Patient is a 74-year-old male who is seen and examined in the ICU for follow-up evaluation in regards to his right. Patient is status post right in situ screw fixation for nondisplaced right transcervical femoral neck fracture. Patient is known to have tested positive for Covid-19. The mechanical ventilator has been discontinued. Patient is awake, alert, and oriented. He is answering questions appropriately. He feels his right hip pain has been adequately controlled. He continues to have significant right-sided rib pain. He continues to use a lidocaine patch for his rib fracture pain. He was able to work with physical therapy yesterday. Physical therapy states they're planning to work with him again today. Nursing states her planning to transfer the patient out of the ICU and up to . Patient is planning to discharge back to [facility] at the time of discharge. Patient does not have multiple medical comorbidities including COPD, heart failure, and acute on chronic kidney disease. Physical Exam: Postoperative day #4 Patient is awake, alert, and oriented Inspection of the dressing over the right hip at the surgical site shows 1 small area of dried blood No significant active drainage from the surgical site Evidence of a lidocaine patch intact over the right ribs Pain with light palpation over the right ribs Pneumatic cuffs intact bilateral lower extremities Orellana catheter intact Assessment: Status post right in situ screw fixation for nondisplaced right transcervical femoral neck fracture Displaced right seventh and eighth lateral rib fractures Right-sided rib pain Right hip pain Status post fall Covid-19 positive; mechanical ventilator has been discontinued COPD Heart failure Acute on chronic kidney disease Plan: 1. Patient had tested positive for Covid 19 and was on a mechanical vent. This mechanical vent has been discontinued. Patient has been able to work with physical therapy since yesterday in regards to his right lower extremity. We will continue conservative treatment regards to his right hip and right-sided rib fractures. We discussed he may touch toe weightbearing on the right lower extremity. He may continue using a lidocaine patch for pain control for his right-sided rib fractures. We discussed the patient's Orellana catheter can be discontinued as soon as the patient is able to increase his mobility. Continue with Lovenox 30 mg subcu daily for anticoagulation as prescribed. Once the patient is clear for discharge by multiple medical providers, we will plan have the patient follow up with Dr. Juan Angel in approximately 4 weeks for further evaluation in the outpatient setting at [facility]. We will continue to follow patient closely during his admission. 2. Patient will continue with with further treatment and evaluation by multiple medical providers including medicine, pulmonology, and nephrology
[2020-03-02 11:44] LABS: Glucose,Whole Blood 89 mg/dL (75-99)
--- NOTE | 2020-03-02 12:12 | P.PN ---
Subjective Progress Note Date: 03/02/20 74-year-old male resident currently at [facility] subacute rehab ,known to the practice with history of severe pulmonary hypertension, hypertension hyperlipidemia diabetes mellitus type 2 former smoker anxiety COPD stage III chronic renal insufficiency, recent pneumonia, early dementia (Montral cog nitive scoring at [facility] 11 out of 30), admitted with right hip fracture status post fall in the shower, sustaining multiple skin tears/abrasions to right ear, right chest, bilateral forearms, riight hip. Right ear required sutures. Head and C-spine reported no spine fracture spine fracture, no acute intracranial abnormality-unchanged from prior exam. Pelvis x-ray reported nondisplaced right femoral neck fracture. EKG reportedly accelerated junctional rhythm with nonspecific ST-T wave abnormalities. Troponins 0.047, 0.054. BNP 25,000 Tested positive for coronavirus. Chest x-ray reporting CHF with pleural effusions, pulmonary edema worse than last exam .Maintaining O2 sats in the low 90s on 4 L nasal cannula. Afebrile, WBC 10, hemoglobin 6.9, platelets 174. sodium 138 potassium 4.2 bicarb 14, creatinine 3.51 (baseline around 1.9).glucose 146, mildly elevated LFTs .Evaluated by orthopedic surgery, discussing surgical repair pending pulmonary, cardiology, medical clearance. 02/25/2020 Diuresing on Lasix IV push, with 24-hour I&O reflecting overnigiht urine output of 600 MLS. Renal function worsening, creatinine up to 3.85 . O2 requirement increased up to 6 L nasal cannula, maintaining O2 sats in the 90s. Reports nonproductive cough. Chest x-ray reporting improving bilateral infiltrates greater on right . Decreasing edema. complaints of hip pain, receiving Dilaudid. Hemoglobin 8.3 status post 1 unit packed RBCs. Orellana with hematuria. Afebrile, WBC increased to 12.9. 02/26/2020 yesterday diuretics decreased, but 24-hour I&O inaccurate. Significant lower extremity edema persists. Chest x-ray reporting worsening, developing CHF exacerbation, small lateral pleural effusions-right greater than left with increasing interstitial edema. Continues on 6 L nasal cannula maintaining O2 sats in the 90s. Remains wheezy but today able to speak in sentences without shortness of breath. Renal function unchanged. Complains of constipation. Reports no bowel movement 2 days. Denies chest pain, palpitations. Complains more of right-sided rib cage pain, hip pain currently controlled. Telemetry sinus rhythm. 02/27/2020 maintained on Lasix IV push daily , 24-hour I&O reflecting a gain of 0.5 kg . Urine output increasing. Creatinine down to 3.39 .chest x-ray reporting worsening multifocal right-sided airspace disease with stable bilateral pleural effusions and mild pulmonary vascular congestion. Continues on 6 L nasal cannula maintaining O2 sats in the 90s.VSS, afebrile. Reports no bowel movement, Dulcolax suppository ordered for after surgery. OR pending. 03/01/2020 postop day #3 status post right in situ screw fixation for nondisplaced right transcervical femoral neck fracture .extubated yesterday to 4 L nasal cannula, maintaining O2 sats in the 90s. Chest x-ray reporting slightly worsening right-sided multifocal consolidations and medial retrocardiac opacity, slightly worsening loculated small right pleural effusion. Significant weakness, weak cough. PT pending. Afebrile, normal WBC. Hemoglobin 7.9. Renal function improving, trending down to 2.33. Blood sugars controlled, tolerating full liquid diet. Pain currently controlled. 03/02/20 postop day #4, hip pain controlled, complains of right-sided rib pain, wearing lidocaine patch on right ribs. Diet intake improving, denies nausea vomiting or diarrhea. Passing flatus, Positive bowel movement .Chest x-ray reporting improved aeration of right upper lobe otherwise unchanged with bilateral airspace disease right greater than left, pleural effusions. Diuresing well on Lasix IV push with 24-hour I&O reflecting a negative fluid balance. Oxygen has been weaned down to 2 L nasal cannula maintaining O2 sats in my 80s to 90s. Continues on Zosyn. Afebrile, normal WBC. Hemoglobin remains at 7.9. Renal function continues to improve trending down to 2.03. Objective - Vital Signs Vital signs: Vital Signs Temp 98.8 F 03/02/20 08:00 Pulse 87 03/02/20 10:00 Resp 19 03/02/20 10:00 BP 153/71 03/02/20 09:00 Pulse Ox 89 L 03/02/20 10:00 Intake & Output 05/02/1503/02/20 03/02/20 18:59 06:59 18:59 Intake Total 768 1094 Output Total 1050 1095 Balance -282 -1 Weight 74.4 kg Intake: IV 368 450 0.9 110 150 Lactated Ringers 1,000 ml 240 300 @ 20 mls/hr IV .Q24H JN Rx#:[id number] pressure bag 18 Intake, IV Titration 100 Amount Piperacillin-Tazobactam 3 100 .375 gm In Sodium Chloride 0.9% 100 ml @ 25 mls/hr IVPB Q12HR JN Rx #:[id number] Oral 400 544 Output: Urine 1050 1095 Other: Voiding Method Indwelling Catheter Indwelling Catheter Indwelling Catheter ABP, PAP, CO, CI - Last Documented Arterial Blood Pressure 148/54 - Exam General: Sitting up in bed, no acute distress HEENT: [PERRL. EOMI. No pharyngeal erythema or exudate. Oral mucosa moist. Neck: [No adenopathy. No JVD Cardiac: [Heart regular in rate and rhythm. No S3. No S4. No clicks, rubs. No murmur. Lungs: Bilateral bases diminished, no rhonchi, crackles, or wheezing. Abdomen: [Soft, mild mid epigastric tenderness ,No mass. No organomegaly. Leesa l sounds presnt and normoactive in all 4 quadrants.] Extremes: Right hip dressing clean dry and intact, tender, sensation grossly intact, decreasing edema bilateral lower extremities, no clubbing, no cyanosis, positive pulses Skin: [Right ear lacerations/scabbed with sutures, bilateral forearms with skin tears/abrasions .left hand with first and second digit missing .No rash.] Neurologic: [No lateralizing deficits. CN II - XII grossly intact.] - Labs CBC & Chem 7: 03/02/20 04:30 03/02/20 04:30 Labs: Abnormal Lab Results - Last 24 Hours (Table) 03/01/20 03/01/20 03/01/20 Range/Units 03:30 12:19 17:04 RBC (4.30-5.90) m/uL Hgb (13.0-17.5) gm/dL Hct (39.0-53.0) % MCH (25.0-35.0) pg MCHC (31.0-37.0) g/dL RDW (11.5-15.5) % Lymphocytes # (1.0-4.8) k/uL Carbon Dioxide (22-30) mmol/L BUN (9-20) mg/dL Creatinine (0.66-1.25) mg/dL POC Glucose (mg/dL) 139 H 150 H (75-99) mg/dL Calcium (8.4-10.2) mg/dL Iron 8 L (65-175) ug/dL % Saturation 3.36 L (15.00-50.00) 03/01/20 03/02/20 03/02/20 Range/Units 20:59 04:30 04:30 RBC 3.19 L (4.30-5.90) m/uL Hgb 7.9 L (13.0-17.5) gm/dL Hct 27.1 L (39.0-53.0) % MCH 24.7 L (25.0-35.0) pg MCHC 29.1 L (31.0-37.0) g/dL RDW 17.5 H (11.5-15.5) % Lymphocytes # 0.9 L (1.0-4.8) k/uL Carbon Dioxide 35 H (22-30) mmol/L BUN 59 H (9-20) mg/dL Creatinine 2.03 H (0.66-1.25) mg/dL POC Glucose (mg/dL) 189 H (75-99) mg/dL Calcium 7.6 L (8.4-10.2) mg/dL Iron (65-175) ug/dL % Saturation (15.00-50.00) Assessment and Plan Assessment: (1) status post right in situ screw fixation for nondisplaced right transcervical femoral neck fracture , status post fall (2) acute hypoxic respiratory failure secondary to acute on chronic CHF exacerbation, diastolic dysfunction, EF 50-55% (3) severe pulmonary hypertension (4)acute COVID- 19 infection , possible acute COVID-19 Pneumonia. (5) Acute on chronic renal failure Current Visit: No Status: Acute Code(s): N17.9 - ACUTE KIDNEY FAILURE, UN SPECIFIED SNOMED Code(s): 52139549 (6) Acute anemia, status post 1 unit packed RBCs (7) elevated troponin, cardiology following (8) Diabetes mellitus Current Visit: No Status: Acute Code(s): E11.9 - TYPE 2 DIABETES MELLITUS WITHOUT COMPLICATIONS SNOMED Code(s): 76148395 (9)Elevated LFTs , mild (10) Hypertension Current Visit: No Status: Acute Code(s): I10 - ESSENTIAL (PRIMARY) HYPERTENSION SNOMED Code(s): 53694126 (11) chronic hypoxic respiratory failure secondary to COPD , wears 2Lnc at home (12)Cognitive impairment, recent [facility] cognitive assessment [facility] reported 11 out of 30. Current Visit: Yes Status: Acute Code(s): R41.89 - OTH SYMPTOMS AND SIGNS W COGNITIVE FUNCTIONS AND AWARENESS SNOMED Code(s): 195447207 (13) prior nicotine dependence (14) troponin leak, acute coronary syndrome ruled out as per cardiology, possibly related to CHF and renal failure Plan: Continue on current medication regime ,monitoring and symptomatic treatment. Cleared by dialysis nurse for transfer out of ICU to [facility]. Repeat coronavirus, requested per Subacute rehab. Pain management, PT/OT. Pain management as per orthopedic surgery. Aggressive pulmonary toileting with incentive spirometer reinforced. Continue on diuretics. Prognosis guarded given multiple complex medical issues. The impression and plan of care has been dictated as directed. : I performed a history and examination of this patient, discussed the same with the dictator. I agree with the dictator's note ,documented as a scribe. Any additional findings or plans will be noted.
--- NOTE | 2020-03-02 15:44 | PN ---
PROGRESS NOTE Patient is seen for followup for acute kidney injury. Discussed with nursing staff. He is currently awake, comfortable. He is not in any acute distress. He has started to eat. He will be transferred out of the ICU. Blood pressure was 132/57, heart rate of 76 per minute, patient is afebrile. He has had good urine output. A 24 hour urine output documented at 2.1 L. Patient is currently not on any IV fluids. He is maintained on IV Lasix, 40 mg IV daily. Renal function continues to improve with creatinine down to 2.0 from 2.3 yesterday. PHYSICAL EXAMINATION: On examination, blood pressure 132/57, heart rate 76 per minute, he is afebrile. Patient has some edema. Abdomen is soft as per nursing staff. [employer] exam grossly intact. Patient has generalized weakness. LABS: Show hemoglobin 7.9, sodium 140, potassium 3.9, chloride 103, CO2 is 35, BUN 59, creatinine 2.03. ASSESSMENT: 1. Acute kidney injury, acute tubular necrosis, nonoliguric, currently improving. 2. COVID-19 pneumonia improved, status post extubation. 3. Hypoxic respiratory failure, status post extubation. 4. Mild volume overload, maintained on IV Lasix daily, doing well. 5. Anemia, no active bleeding noted currently. 6. Hypertension, controlled. 7. Diastolic congestive heart failure with severe pulmonary hypertension. 8. Chronic kidney disease stage III, baseline creatinine 1.6-2 mg/dL secondary to nephrosclerosis. PLAN: Continue IV Lasix. Continue to encourage increased oral intake. Monitor labs. MMODL / IJN: [id number] /
[2020-03-02 16:56] LABS: Glucose,Whole Blood 140 mg/dL (75-99)
[2020-03-02 20:50] LABS: Glucose,Whole Blood 235 mg/dL (75-99)
[2020-03-02] MEDS: ATORVASTATIN 20 MG TAB PO SCH (22:25)
[2020-03-02] MEDS: INSULIN DETEMIR (LEVEMIR) 100 UNIT/ML SYR SQ SCH (22:45)
[2020-03-03] MEDS: ALPRAZolam 0.25 MG TAB PO PRN (01:35)
[2020-03-03] MEDS: NITROGLYCERIN OINT 1 INCH/GM PACKET TOPICAL SCH ×4 (01:36→22:40)
[2020-03-03] MEDS: HYDROcodone/APAP 5-325MG 1 EACH TAB PO PRN ×3 (03:02→20:34)
[2020-03-03 07:14] LABS: Glucose,Whole Blood 58 mg/dL (75-99)
[2020-03-03 07:35] LABS: Glucose,Whole Blood 74 mg/dL (75-99)
[2020-03-03] MEDS: INSULIN ASPART (NovoLOG) 100 UNIT/ML VIAL SQ SCH ×4 (08:01→20:35)
[2020-03-03] MEDS: FUROSEMIDE 10 MG/ML 4 ML VIAL IV SCH (08:02)
[2020-03-03] MEDS: ENOXAPARIN 30 MG/0.3 ML SYRINGE SQ SCH (08:02)
[2020-03-03] MEDS: ESCITALOPRAM 10 MG TAB PO SCH (08:02)
[2020-03-03] MEDS: LINAGLIPTIN 5 MG TABLET PO SCH (08:02)
[2020-03-03] MEDS: TAMSULOSIN 0.4 MG CAP.ER.24H PO SCH (08:02)
[2020-03-03] MEDS: PANTOPRAZOLE 40 MG/10 ML VIAL IVP SCH (08:02)
[2020-03-03] MEDS: LIDOCAINE 5% PATCH TOPICAL SCH (08:03)
[2020-03-03] MEDS: METOPROLOL TARTRATE 50 MG TAB PO SCH ×2 (08:04→20:35)
[2020-03-03] MEDS: PIPERACILLIN-TAZOBACTAM 3.375 GM in SODIUM CHLORIDE 0.9% 100 ML IVPB SCH ×2 (08:05→20:35)
[2020-03-03] MEDS: buPROPion XL 150 MG TAB.ER.24H PO SCH (08:15)
[2020-03-03] MEDS: DOCUSATE 100 MG CAP PO SCH (08:16)
[2020-03-03] MEDS: SENNOSIDES-DOCUSATE SODIUM 1 EACH TAB PO SCH (09:56)
[2020-03-03 10:13] LABS: Calcium 7.9 mg/dL (8.4-10.2)
[2020-03-03 11:47] LABS: Glucose,Whole Blood 107 mg/dL (75-99)
--- NOTE | 2020-03-03 13:04 | PN ---
PROGRESS NOTE PULMONARY/CRITICAL CARE PROGRESS NOTE: DATE OF SERVICE: 03/03/2020 This is a 74-year-old gentleman with a history of a nondisplaced right femoral neck fracture, he fell and fractured the right femoral neck and is status post in situ screw fixation of his nondisplaced right femoral neck fracture. He is postop day #4. The patient also unfortunately developed acute hypoxemic respiratory failure secondary to acute COVID-19 pneumonitis and required intubation on February 26 and was extubated successfully on February 28. So far he is doing well. He is currently on 2-3 L of nasal O2. In addition, he has a history of diastolic CHF, acute kidney injury, stage III chronic kidney disease, anemia of chronic disease, hypertension, chronic hypercapnic and hypoxemic respiratory failure secondary to COPD, diabetes mellitus, depression, history of nicotine dependence, valvular heart disease in the form of moderate mitral regurgitation and moderate to severe tricuspid regurgitation and severe pulmonary hypertension, and acute troponin leak. Currently, the patient is resting comfortably. He did develop some diarrhea. He tells us. Will send a C diff toxin out to see if that is positive. Other than that, he is doing reasonably well. As mentioned, his breathing is stable. Denies any cough or phlegm production. There is no fever or chills. Vital signs are reviewed. Temperature 98.1, heart rate 68, respiratory rate 18, blood pressure 152/74 mean 100, saturations are 100% on 3 L. Appears in no acute distress. HEENT: Examination is grossly unremarkable. He has got a mask in place. Nasal O2 noted. NECK: Supple. Full range of motion. No adenopathy. Neck veins are flat. CARDIOVASCULAR: Examination reveals regular rhythm and rate. Heart rate about 75-76 beats per minute. S1, S2 normal. Heart sounds are distant. No distinct murmur. LUNGS: Reveal a few scattered coarse rhonchi. Breath sounds equal. No wheezes or crackles. ABDOMEN: Soft, bowel sounds are heard. EXTREMITIES: Intact. No edema. SKIN: Without rash. NEUROLOGIC: Examination is brief but nonfocal. LABS: Reviewed. Sodium 139, potassium 4, chloride 101, CO2 is 30, anion gap is 8. BUN and creatinine were 49 and 2.05. Calcium 7.9. Microbiologic studies are negative. The most recent chest x-ray was from yesterday which showed bilateral airspace disease, right greater than left, with some improvement bilaterally. This improvement is seen mostly in the left upper lobe. Current medications have been reviewed. ASSESSMENT: 1. Postoperative day #4, status post in situ screw fixation of a nondisplaced right femoral neck fracture, which the patient injured during a fall. 2. Acute hypoxemic respiratory failure, multifactorial, in part related to acute COVID- 19 pneumonitis as well as acute exacerbation. The patient has known diastolic CHF, status post intubation on February 26 and extubation successfully on February 28. 3. Acute exacerbation of diastolic congestive heart failure. 4. Acute kidney injury, improved. 5. Stage IIIB chronic kidney disease. 6. Anemia of chronic disease. 7. Hypertension. 8. Chronic hypercapnic hypoxemic respiratory failure secondary to chronic obstructive pulmonary disease. 9. Type 2 diabetes mellitus. 10.History of depression. 11.History of chronic tobacco dependence for a number of years, with cessation 3 years ago. 12.Valvular heart disease in the form of moderate mitral regurgitation, moderate to severe tricuspid regurgitation and severe pulmonary hypertension. 13.Mild troponin leak. PLAN: The patient seems to be doing well. The patient seems to be stable from the pulmonary status. He has been weaned down to 3 L. Saturations are excellent. The patient did complain of diarrhea. We send a C difficile toxin. Additional recommendations and suggestions are forthcoming. Medications are reviewed. Everything appears to be appropriate. Prognosis is still guarded. MMODL / IJN: [id number] /
--- NOTE | 2020-03-03 13:46 | P.PN ---
Subjective Progress Note Date: 03/03/20 74-year-old male resident currently at [facility] subacute rehab ,known to the practice with history of severe pulmonary hypertension, hypertension hyperlipidemia diabetes mellitus type 2 former smoker anxiety COPD stage III chronic renal insufficiency, recent pneumonia, early dementia ([place] cog nitive scoring at [facility] 11 out of 30), admitted with right hip fracture status post fall in the shower, sustaining multiple skin tears/abrasions to right ear, right chest, bilateral forearms, riight hip. Right ear required sutures. Head and C-spine reported no spine fracture spine fracture, no acute intracranial abnormality-unchanged from prior exam. Pelvis x-ray reported nondisplaced right femoral neck fracture. EKG reportedly accelerated junctional rhythm with nonspecific ST-T wave abnormalities. Troponins 0.047, 0.054. BNP 25,000 Tested positive for coronavirus. Chest x-ray reporting CHF with pleural effusions, pulmonary edema worse than last exam .Maintaining O2 sats in the low 90s on 4 L nasal cannula. Afebrile, WBC 10, hemoglobin 6.9, platelets 174. sodium 138 potassium 4.2 bicarb 14, creatinine 3.51 (baseline around 1.9).glucose 146, mildly elevated LFTs .Evaluated by orthopedic surgery, discussing surgical repair pending pulmonary, cardiology, medical clearance. 02/25/2020 Diuresing on Lasix IV push, with 24-hour I&O reflecting overnigiht urine output of 600 MLS. Renal function worsening, creatinine up to 3.85 . O2 requirement increased up to 6 L nasal cannula, maintaining O2 sats in the 90s. Reports nonproductive cough. Chest x-ray reporting improving bilateral infiltrates greater on right . Decreasing edema. complaints of hip pain, receiving Dilaudid. Hemoglobin 8.3 status post 1 unit packed RBCs. Orellana with hematuria. Afebrile, WBC increased to 12.9. 02/26/2020 yesterday diuretics decreased, but 24-hour I&O inaccurate. Significant lower extremity edema persists. Chest x-ray reporting worsening, developing CHF exacerbation, small lateral pleural effusions-right greater than left with increasing interstitial edema. Continues on 6 L nasal cannula maintaining O2 sats in the 90s. Remains wheezy but today able to speak in sentences without shortness of breath. Renal function unchanged. Complains of constipation. Reports no bowel movement 2 days. Denies chest pain, palpitations. Complains more of right-sided rib cage pain, hip pain currently controlled. Telemetry sinus rhythm. 02/27/2020 maintained on Lasix IV push daily , 24-hour I&O reflecting a gain of 0.5 kg . Urine output increasing. Creatinine down to 3.39 .chest x-ray reporting worsening multifocal right-sided airspace disease with stable bilateral pleural effusions and mild pulmonary vascular congestion. Continues on 6 L nasal cannula maintaining O2 sats in the 90s.VSS, afebrile. Reports no bowel movement, Dulcolax suppository ordered for after surgery. OR pending. 03/01/2020 postop day #3 status post right in situ screw fixation for nondisplaced right transcervical femoral neck fracture .extubated yesterday to 4 L nasal cannula, maintaining O2 sats in the 90s. Chest x-ray reporting slightly worsening right-sided multifocal consolidations and medial retrocardiac opacity, slightly worsening loculated small right pleural effusion. Significant weakness, weak cough. PT pending. Afebrile, normal WBC. Hemoglobin 7.9. Renal function improving, trending down to 2.33. Blood sugars controlled, tolerating full liquid diet. Pain currently controlled. 03/02/20 postop day #4, hip pain controlled, complains of right-sided rib pain, wearing lidocaine patch on right ribs. Diet intake improving, denies nausea vomiting or diarrhea. Passing flatus, Positive bowel movement .Chest x-ray reporting improved aeration of right upper lobe otherwise unchanged with bilateral airspace disease right greater than left, pleural effusions. Diuresing well on Lasix IV push with 24-hour I&O reflecting a negative fluid balance. Oxygen has been weaned down to 2 L nasal cannula maintaining O2 sats in my 80s to 90s. Continues on Zosyn. Afebrile, normal WBC. Hemoglobin remains at 7.9. Renal function continues to improve trending down to 2.03. 03/03/2020 maintained on 4 L nasal cannula maintaining O2 sats in the 90s. Continues diuresing well on Lasix IV push with 24-hour I&O reflecting a negative fluid balance. Creatinine remains at 2.05. Hypoglycemic earlier this morning, currently blood sugars controlled. Maintained on empiric Zosyn, afebrile. Pain controlled. Denies chest pain, palpitations. Complaining of diarrhea, staff reports two episodes-we'll DC Colace and Senokot S. Objective - Vital Signs Vital signs: Vital Signs Temp 98.1 F 03/03/20 11:26 Pulse 68 03/03/20 11:26 Resp 18 03/03/20 11:26 BP 152/74 03/03/20 11:26 Pulse Ox 100 03/03/20 11:26 Intake & Output 03/02/20 03/03/20 03/03/20 18:59 06:59 18:59 Intake Total 410 Output Total 500 900 Balance -90 -900 Weight 73 kg Intake: IV 30 0.9 10 Lactated Ringers 1,000 ml 20 @ 20 mls/hr IV .Q24H JN Rx#:[id number] Intake, IV Titration 200 Amount Piperacillin-Tazobactam 3 100 .375 gm In Sodium Chloride 0.9% 100 ml @ 25 mls/hr IVPB Q12HR JN Rx #:[id number] Potassium Chloride 10 meq 100 In Water For Injection 1 100ml.bag @ 100 mls/hr IVPB Q1H JN Rx#: [id number] Oral 180 Output: Urine 500 900 Other: Voiding Method Indwelling Catheter Indwelling Catheter # Bowel Movements 2 ABP, PAP, CO, CI - Last Documented Arterial Blood Pressure 148/54 - Exam General: Sitting up in bed, no acute distress HEENT: [PERRL. EOMI. No pharyngeal erythema or exudate. Oral mucosa moist. Neck: [No adenopathy. No JVD Cardiac: [Heart regular in rate and rhythm. No S3. No S4. No clicks, rubs. No murmur. Lungs: Bilateral bases diminished, occasional scattered rhonchi,no crackles, or wheezing. Abdomen: [Soft, mild mid epigastric tenderness ,No mass. No organomegaly. Positive Bowel sounds present. Extremes: Right hip tender, sensation grossly intact, decreasing edema bilateral lower extremities, no clubbing, no cyanosis, positive pulses Skin: [Right ear lacerations/scabbed with sutures, bilateral forearms with skin tears/abrasions .left hand with first and second digit missing .No rash.] Neurologic: [No lateralizing deficits. CN II - XII grossly intact.] - Labs CBC & Chem 7: 03/02/20 04:30 03/03/20 09:44 Labs: Abnormal Lab Results - Last 24 Hours (Table) 03/02/20 03/02/20 03/02/20 Range/Units 11:55 16:44 20:48 BUN (9-20) mg/dL Creatinine (0.66-1.25) mg/dL Glucose (74-99) mg/dL POC Glucose (mg/dL) 140 H 235 H (75-99) mg/dL Calcium (8.4-10.2) mg/dL Coronavirus (PCR) Detected A (Not Detectd) 03/03/20 03/03/20 03/03/20 Range/Units 07:12 07:34 09:44 BUN 49 H (9-20) mg/dL Creatinine 2.05 H (0.66-1.25) mg/dL Glucose 130 H (74-99) mg/dL POC Glucose (mg/dL) 58 L 74 L (75-99) mg/dL Calcium 7.9 L (8.4-10.2) mg/dL Coronavirus (PCR) (Not Detectd) 03/03/20 Range/Units 11:45 BUN (9-20) mg/dL Creatinine (0.66-1.25) mg/dL Glucose (74-99) mg/dL POC Glucose (mg/dL) 107 H (75-99) mg/dL Calcium (8.4-10.2) mg/dL Coronavirus (PCR) (Not Detectd) Assessment and Plan Assessment: (1) status post right in situ screw fixation for nondisplaced right transcervical femoral neck fracture , status post fall (2) acute hypoxic respiratory failure secondary to acute on chronic CHF exacerbation, diastolic dysfunction, EF 50-55% (3) severe pulmonary hypertension (4)acute COVID- 19 infection , possible acute COVID-19 Pneumonia. Repeat coronavirus reports detected. (5) Acute on chronic renal failure Current Visit: No Status: Acute Code(s): N17.9 - ACUTE KIDNEY FAILURE, UNSPECIFIED SNOMED Code(s): 99438166 (6) Acute anemia, status post 1 unit packed RBCs (7) elevated troponin, cardiology following (8) Diabetes mellitus Current Visit: No Status: Acute Code(s): E11.9 - TYPE 2 DIABETES MELLITUS WITHOUT COMPLICATIONS SNOMED Code(s): 49340526 (9)Elevated LFTs , mild (10) Hypertension Current Visit: No Status: Acute Code(s): I10 - ESSENTIAL (PRIMARY) HYPERTENSION SNOMED Code(s): 57802083 (11) chronic hypoxic respiratory failure secondary to COPD , wears 2Lnc at home (12)Cognitive impairment, recent ventral cognitive assessment [facility] reported 11 out of 30. Current Visit: Yes Status: Acute Code(s): R41.89 - OTH SYMPTOMS AND SIGNS W COGNITIVE FUNCTIONS AND AWARENESS SNOMED Code(s): 629974427 (13) prior nicotine dependence (14) troponin leak, acute coronary syndrome ruled out as per cardiology, possibly related to CHF and renal failure Plan: Continue on current medication regime ,monitoring and symptomatic treatment. Staff reports a couple episodes of diarrhea, Colace and Senokot discontinued. PT/OT. Pain management as per orthopedic surgery. Maintain aggressive pulmonary toileting with incentive spirometer reinforced. Continue on diuretics. Prognosis guarded given multiple complex medical issues. Discharge planning in progress for subacute rehab. tomorrow, Pending clearance from consults. The impression and plan of care has been dictated as directed. : I performed a history and examination of this patient, discussed the same with the dictator. I agree with the dictator's note ,documented as a scribe. Any additional findings or plans will be noted.
--- NOTE | 2020-03-03 14:03 | P.PN ---
Progress Note - Text Progress Note Date: 03/03/20 Orthopedics will begin to follow this patient peripherally due to COVID-19 positive. I spoke with the nurse this morning, states the patient has not been up with physical therapy yet this morning. She states per report, the patient's dressing is clean and intact. The nurse states she will check the dressing next time she is in the room and report if there are any issues. Per nursing, the patient has not complained of pain along the rib fracture site over the right hip. He continues to utilize Lidoderm patches for the right rib pain. Per chart review, vital signs stable. Assessment: Status post In-situ screw fixation of nondisplaced right transcervical femoral neck fracture. Postoperative day #3. Seventh and eighth displaced rib fractures COVID-19 + Plan: - Patient should remain strictly touch-down weightbearing on the operative leg. - Dressing changes daily and as needed if the dressing becomes saturated. - Continue Lidoderm patches for right rib fractures. - Continue medical management per internal medicine and other multiple medical specialties following. - Upon discharge, the patient will follow-up with Dr. Angel in 4 weeks in the office. We will plan on staple removal in 2 weeks, to be performed by nursing staff either via home health care or a rehab center, depending on patient's discharge plans. - We will continue to follow patient peripherally while he remains inpatient.
--- NOTE | 2020-03-03 14:57 | PN ---
PROGRESS NOTE Patient is seen for followup for acute kidney injury associated with underlying comorbid pneumonia. Renal function has been improving. Patient has been transferred out of the ICU. His serum creatinine is staying at about 2.0 mg/dL. Patient is maintained on Lasix 40 mg IV daily. He has had good urine output. His is getting stronger. He has had fair oral intake. PHYSICAL EXAMINATION: This morning blood pressure 151/67, heart rate 77 per minute, he is afebrile. Examination is not performed. It is discussed with the nursing staff. The patient remains with 1+ edema in his lower extremities with decreased breath sounds at bases. ABDOMEN: Soft, nontender. HOUSEMAN exam is grossly intact. He is moving all 4 extremities. LABS: Reviewed sodium 139, potassium 4.0, BUN 49, serum creatinine 2.05. ASSESSMENT: 1. Acute kidney injury ATN currently nonoliguric and improving. Patient remains on IV Lasix once a day, which we can continue for now. 2. COVID pneumonia, stable and improved. 3. Diastolic congestive heart failure with severe pulmonary hypertension. 4. Chronic kidney disease stage III baseline creatinine 1.6-2 mg/dL secondary to nephrosclerosis. 5. Hypertension, currently controlled. PLAN: Continue with IV Lasix, repeat labs in a.m. Continue to avoid nephrotoxic agents. MMODL / IJN: [id number] /
[2020-03-03 16:40] LABS: Glucose,Whole Blood 143 mg/dL (75-99)
[2020-03-03] MEDS: LACTATED RINGERS 1,000 ML IV SCH (17:39)
[2020-03-03 20:21] LABS: Glucose,Whole Blood 178 mg/dL (75-99)
[2020-03-03] MEDS: INSULIN DETEMIR (LEVEMIR) 100 UNIT/ML SYR SQ SCH (20:35)
[2020-03-03] MEDS: ATORVASTATIN 20 MG TAB PO SCH (20:35)
[2020-03-04] MEDS ORDERED: HYDROcodone/APAP 5-325MG 1 EACH TAB ONE (01:54)
[2020-03-04 06:22] LABS: Glucose,Whole Blood 61 mg/dL (75-99)
[2020-03-04 06:57] LABS: Glucose,Whole Blood 123 mg/dL (75-99)
[2020-03-04 07:21] LABS: Anisocytosis Slight; Basophils % (A) 0 %; Eosinophils # (A) 0.2 k/uL (0-0.7); Eosinophils % (A) 2 %; HCT 27.2 % (39.0-53.0); HGB 7.9 gm/dL (13.0-17.5); Hypochromasia Marked; Lymphocytes % (A) 10 %; MCH 24.1 pg (25.0-35.0); MCHC 29.1 g/dL (31.0-37.0); MCV 82.7 fL (80.0-100.0); Mean Platelet Volume 9.2; Monocytes # (A) 0.5 k/uL (0-1.0); Monocytes % (A) 5 %; Neutrophils # (A) 7.8 k/uL (1.3-7.7); Neutrophils % (A) 80 %; Platelet Count 211 k/uL (150-450); Poikilocytosis Slight; RBC 3.29 m/uL (4.30-5.90); RDW 17.2 % (11.5-15.5); WBC 9.7 k/uL (3.8-10.6)
[2020-03-04 07:32] LABS: Calcium 7.8 mg/dL (8.4-10.2); Potassium 3.5 mmol/L (3.5-5.1)
[2020-03-04] MEDS: INSULIN ASPART (NovoLOG) 100 UNIT/ML VIAL SQ SCH ×5 (07:43→21:35)
[2020-03-04] MEDS: DOCUSATE 100 MG CAP PO SCH (07:44)
[2020-03-04] MEDS: LIDOCAINE 5% PATCH TOPICAL SCH (07:52)
[2020-03-04] MEDS: PIPERACILLIN-TAZOBACTAM 3.375 GM in SODIUM CHLORIDE 0.9% 100 ML IVPB SCH ×2 (07:53→21:36)
[2020-03-04] MEDS: ENOXAPARIN 30 MG/0.3 ML SYRINGE SQ SCH (07:54)
[2020-03-04] MEDS: NITROGLYCERIN OINT 1 INCH/GM PACKET TOPICAL SCH ×3 (07:55→23:25)
[2020-03-04] MEDS: buPROPion XL 150 MG TAB.ER.24H PO SCH (07:55)
[2020-03-04] MEDS: PANTOPRAZOLE 40 MG/10 ML VIAL IVP SCH (07:55)
[2020-03-04] MEDS: ESCITALOPRAM 10 MG TAB PO SCH (07:55)
[2020-03-04] MEDS: LINAGLIPTIN 5 MG TABLET PO SCH (07:55)
[2020-03-04] MEDS: FUROSEMIDE 10 MG/ML 4 ML VIAL IV SCH (07:56)
[2020-03-04] MEDS: METOPROLOL TARTRATE 50 MG TAB PO SCH ×2 (07:56→21:35)
[2020-03-04] MEDS: TAMSULOSIN 0.4 MG CAP.ER.24H PO SCH (07:56)
--- NOTE | 2020-03-04 09:20 | XR ---
EXAMINATION TYPE: XR chest 1V portable DATE OF EXAM: 03/04/2020 HISTORY: Shortness of breath. COMPARISON: 03/02/2020 TECHNIQUE: Single view of the chest is submitted. FINDINGS: Left-sided central venous line has been removed. No pneumothorax seen. Increasing right basilar pleural effusion. Underlying atelectasis or infiltrate noted. Mild atelectas is left lower lobe. The heart is stable. Hilar and mediastinal structures are within normal limits. Degenerative changes are seen of the dorsal spine. IMPRESSION: 1. Increasing right basilar pleural effusion. Underlying atelectasis or infiltrate noted. Mild atele ctasis left lower lobe.
[2020-03-04] MEDS: LACTATED RINGERS 1,000 ML IV SCH (09:22)
[2020-03-04 11:55] LABS: Glucose,Whole Blood 151 mg/dL (75-99)
[2020-03-04] MEDS: HYDROcodone/APAP 5-325MG 1 EACH TAB PO PRN ×2 (12:11→21:35)
--- NOTE | 2020-03-04 12:19 | PN ---
PROGRESS NOTE PULMONARY/CRITICAL CARE PROGRESS NOTE: DATE OF SERVICE: 03/04/2020 This is a 74-year-old gentleman with a history of nondisplaced right femoral neck fracture. The patient is status post in situ screw fixation of the fracture. He is postop day #5. He unfortunately also developed acute hypoxemic respiratory failure secondary to acute COVID-19 pneumonitis and required intubation on February 26 and successful extubation on February 28. Currently doing well. On a couple L of O2. Yesterday, he was complaining of diarrhea. We did a C diff test on him. It was negative. He does have a history of multiple other medical problems. Looks relatively stable. Lying flat in bed. He denies any shortness of breath, chest congestion, cough, wheezing, phlegm production, or chest pain or pressure. Current vital signs are reviewed. Temperature is 98.1, heart rate 85, respiratory rate 18, blood pressure 128/64, 4 L saturation 98%. Appears in no acute distress. HEENT: Examination is grossly unremarkable. Nasal O2 in place. NECK: Supple. Full range of motion. No adenopathy. Neck veins are flat. CARDIOVASCULAR: Examination reveals regular rhythm and rate. Heart rate about 80 beats per minute. S1, S2 normal. No S3, S4, or murmur. Heart sounds are distant. LUNGS: Reveal a few scattered coarse rhonchi. No wheezes or crackles. Breath sounds equal. ABDOMEN: Soft bowel sounds are heard. EXTREMITIES: Intact. No cyanosis, clubbing, or significant edema. SKIN: Without rash. NEUROLOGIC: Examination is brief but nonfocal. White count 9.7, hemoglobin 7.9, hematocrit 27.2, platelet count 211,000. Sodium 138, potassium 3.5, chloride is 101, CO2 is 32, anion gap is 5. BUN and creatinine 46 and 2. We did repeat a chest x-ray today. The chest x-ray shows a right basilar effusion. There is also bibasilar atelectasis or infiltrate. Microbiology is negative. Medications are reviewed. ASSESSMENT: 1. Postoperative day #5, status post in situ screw fixation of a nondisplaced right femoral neck fracture, which the patient injured during a fall. 2. Acute hypoxemic respiratory failure, multifactorial, in part related to acute COVID- 19 pneumonitis as well as an acute exacerbation of the patient's known diastolic congestive heart failure. 3. Status post intubation and mechanical ventilation between February 26 and February 28. 4. Acute exacerbation of diastolic congestive heart failure. 5. Acute kidney injury, improved. 6. Stage IIIB chronic kidney disease. 7. Anemia of chronic disease. 8. Benign essential hypertension. 9. History of chronic hypoxemic and hypercapnic respiratory failure, secondary to chronic obstructive pulmonary disease. 10.Type 2 diabetes mellitus. 11.History of depression. 12.Prior history of heavy tobacco use. 13.Valvular heart disease in the form of moderate mitral regurgitation, moderate to severe tricuspid regurgitation and severe pulmonary hypertension. 14.Increasing right-sided pleural effusion. PLAN: Will order an ultrasound of the right chest. He may benefit from thoracentesis. Additional recommendations and suggestions are forthcoming. Prognosis is guarded. Will continue to follow. C diff testing was negative. MMODL / IJN: [id number] /
--- NOTE | 2020-03-04 12:32 | P.PN ---
Subjective Progress Note Date: 03/04/20 Principal diagnosis: Right hip fracture Orthopedics following this patient peripherally at this point due to COVID-19 positive. I spoke with the nurse this morning. she states patient is stable and pain controlled. She states the wound remains benign. Per nursing, the patient has not complained of pain along the rib fracture site over the right hip. He continues to utilize Lidoderm patches for the right rib pain. Per chart review, vital signs stable. Assessment: Status post In-situ screw fixation of nondisplaced right transcervical femoral neck fracture. Postoperative day #4. Seventh and eighth displaced rib fractures COVID-19 + Plan: - Patient should remain strictly touch-down weightbearing on the operative leg. - Dressing changes daily and as needed if the dressing becomes saturated. - Continue Lidoderm patches for right rib fractures. - Continue medical management per internal medicine and other multiple medical specialties following. - Upon discharge, the patient will follow-up with Dr. Angel in 4 weeks in the office. We will plan on staple removal in 2 weeks, to be performed by nursing staff either via home health care or a rehab center, depending on patient's discharge plans. - Patient will need anticoagulant at discharge, Lovenox 30mg Qdaily x 4 weeks then ASA 325mg Qdaily x 2 weeks if ok with cardiology and nephrology - We will continue to follow patient peripherally while he remains inpatient. Objective - Vital Signs Vital signs: Vital Signs Temp 98.1 F 03/04/20 07:00 Pulse 85 03/04/20 07:00 Resp 18 03/04/20 07:00 BP 128/64 03/04/20 07:00 Pulse Ox 99 03/04/20 07:00 Intake & Output 03/03/20 03/04/20 03/04/20 18:59 06:59 18:59 Intake Total 236 Output Total 600 900 Balance -364 -900 Weight 73 kg Intake: Oral 236 Output: Urine 600 900 Other: Voiding Method Indwelling Catheter Indwelling Catheter Indwelling Catheter # Voids 1 ABP, PAP, CO, CI - Last Documented Arterial Blood Pressure 148/54 - Labs CBC & Chem 7: 03/04/20 06:04 03/04/20 06:04 Labs: Abnormal Lab Results - Last 24 Hours (Table) 03/03/20 03/03/20 03/04/20 Range/Units 16:38 20:20 06:04 RBC 3.29 L (4.30-5.90) m/uL Hgb 7.9 L (13.0-17.5) gm/dL Hct 27.2 L (39.0-53.0) % MCH 24.1 L (25.0-35.0) pg MCHC 29.1 L (31.0-37.0) g/dL RDW 17.2 H (11.5-15.5) % Neutrophils # 7.8 H (1.3-7.7) k/uL Carbon Dioxide (22-30) mmol/L BUN (9-20) mg/dL Creatinine (0.66-1.25) mg/dL Glucose (74-99) mg/dL POC Glucose (mg/dL) 143 H 178 H (75-99) mg/dL Calcium (8.4-10.2) mg/dL 03/04/20 03/04/20 03/04/20 Range/Units 06:04 06:21 06:56 RBC (4.30-5.90) m/uL Hgb (13.0-17.5) gm/dL Hct (39.0-53.0) % MCH (25.0-35.0) pg MCHC (31.0-37.0) g/dL RDW (11.5-15.5) % Neutrophils # (1.3-7.7) k/uL Carbon Dioxide 32 H (22-30) mmol/L BUN 46 H (9-20) mg/dL Creatinine 2.00 H (0.66-1.25) mg/dL Glucose 40 L* (74-99) mg/dL POC Glucose (mg/dL) 61 L 123 H (75-99) mg/dL Calcium 7.8 L (8.4-10.2) mg/dL 03/04/20 Range/Units 11:54 RBC (4.30-5.90) m/uL Hgb (13.0-17.5) gm/dL Hct (39.0-53.0) % MCH (25.0-35.0) pg MCHC (31.0-37.0) g/dL RDW (11.5-15.5) % Neutrophils # (1.3-7.7) k/uL Carbon Dioxide (22-30) mmol/L BUN (9-20) mg/dL Creatinine (0.66-1.25) mg/dL Glucose (74-99) mg/dL POC Glucose (mg/dL) 151 H (75-99) mg/dL Calcium (8.4-10.2) mg/dL
--- NOTE | 2020-03-04 12:57 | US ---
EXAMINATION TYPE: US chest DATE OF EXAM: 03/04/2020 COMPARISON: x-ray 03/04/2020 CLINICAL HISTORY: right chest with markings, please. TECHNIQUE: Targeted ultrasound of the posterior lower right hemithorax EXAM MEASUREMENTS: Right Pleural Effusion pocket size: 1.9 cm Right skin surface to fluid distance: 10.2 cm Right side marked for possible thoracentesis outside the dept. Pulmonologists are able to review the images in the patient?s EMR. IMPRESSIONS: As above
--- NOTE | 2020-03-04 13:44 | P.PN ---
Subjective Progress Note Date: 03/04/20 74-year-old male resident currently at [facility] subacute rehab ,known to the practice with history of severe pulmonary hypertension, hypertension hyperlipidemia diabetes mellitus type 2 former smoker anxiety COPD stage III chronic renal insufficiency, recent pneumonia, early dementia ([place] cog nitive scoring at [facility] 11 out of 30), admitted with right hip fracture status post fall in the shower, sustaining multiple skin tears/abrasions to right ear, right chest, bilateral forearms, riight hip. Right ear required sutures. Head and C-spine reported no spine fracture spine fracture, no acute intracranial abnormality-unchanged from prior exam. Pelvis x-ray reported nondisplaced right femoral neck fracture. EKG reportedly accelerated junctional rhythm with nonspecific ST-T wave abnormalities. Troponins 0.047, 0.054. BNP 25,000 Tested positive for coronavirus. Chest x-ray reporting CHF with pleural effusions, pulmonary edema worse than last exam .Maintaining O2 sats in the low 90s on 4 L nasal cannula. Afebrile, WBC 10, hemoglobin 6.9, platelets 174. sodium 138 potassium 4.2 bicarb 14, creatinine 3.51 (baseline around 1.9).glucose 146, mildly elevated LFTs .Evaluated by orthopedic surgery, discussing surgical repair pending pulmonary, cardiology, medical clearance. 02/25/2020 Diuresing on Lasix IV push, with 24-hour I&O reflecting overnigiht urine output of 600 MLS. Renal function worsening, creatinine up to 3.85 . O2 requirement increased up to 6 L nasal cannula, maintaining O2 sats in the 90s. Reports nonproductive cough. Chest x-ray reporting improving bilateral infiltrates greater on right . Decreasing edema. complaints of hip pain, receiving Dilaudid. Hemoglobin 8.3 status post 1 unit packed RBCs. [place] with hematuria. Afebrile, WBC increased to 12.9. 02/26/2020 yesterday diuretics decreased, but 24-hour I&O inaccurate. Significant lower extremity edema persists. Chest x-ray reporting worsening, developing CHF exacerbation, small lateral pleural effusions-right greater than left with increasing interstitial edema. Continues on 6 L nasal cannula maintaining O2 sats in the 90s. Remains wheezy but today able to speak in sentences without shortness of breath. Renal function unchanged. Complains of constipation. Reports no bowel movement 2 days. Denies chest pain, palpitations. Complains more of right-sided rib cage pain, hip pain currently controlled. Telemetry sinus rhythm. 02/27/2020 maintained on Lasix IV push daily , 24-hour I&O reflecting a gain of 0.5 kg . Urine output increasing. Creatinine down to 3.39 .chest x-ray reporting worsening multifocal right-sided airspace disease with stable bilateral pleural effusions and mild pulmonary vascular congestion. Continues on 6 L nasal cannula maintaining O2 sats in the 90s.VSS, afebrile. Reports no bowel movement, Dulcolax suppository ordered for after surgery. OR pending. 03/01/2020 postop day #3 status post right in situ screw fixation for nondisplaced right transcervical femoral neck fracture .extubated yesterday to 4 L nasal cannula, maintaining O2 sats in the 90s. Chest x-ray reporting slightly worsening right-sided multifocal consolidations and medial retrocardiac opacity, slightly worsening loculated small right pleural effusion. Significant weakness, weak cough. PT pending. Afebrile, normal WBC. Hemoglobin 7.9. Renal function improving, trending down to 2.33. Blood sugars controlled, tolerating full liquid diet. Pain currently controlled. 03/02/20 postop day #4, hip pain controlled, complains of right-sided rib pain, wearing lidocaine patch on right ribs. Diet intake improving, denies nausea vomiting or diarrhea. Passing flatus, Positive bowel movement .Chest x-ray reporting improved aeration of right upper lobe otherwise unchanged with bilateral airspace disease right greater than left, pleural effusions. Diuresing well on Lasix IV push with 24-hour I&O reflecting a negative fluid balance. Oxygen has been weaned down to 2 L nasal cannula maintaining O2 sats in my 80s to 90s. Continues on Zosyn. Afebrile, normal WBC. Hemoglobin remains at 7.9. Renal function continues to improve trending down to 2.03. 03/03/2020 maintained on 4 L nasal cannula maintaining O2 sats in the 90s. Continues diuresing well on Lasix IV push with 24-hour I&O reflecting a negative fluid balance. Creatinine remains at 2.05. Hypoglycemic earlier this morning, currently blood sugars controlled. Maintained on empiric Zosyn, afebrile. Pain controlled. Denies chest pain, palpitations. Complaining of diarrhea, staff reports two episodes-we'll DC Colace and Senokot S. 03/04/2020 Colace and Senokot discontinued yesterday, bowel movements 2 today, more formed. Negative for C. difficile colitis. Oxygen requirements worsening, now up to 6 L nasal cannula maintaining O2 sats in the 90s. Follow-up chest x- ray reporting increasing right basilar effusion, bibasilar atelectasis or infiltrate. Chest Ultrasound ordered. Pain controlled. Diuresing well on Lasix IV push with 24-hour I&O continuing to reflecting a negative fluid balance. Creatinine 2. Objective - Vital Signs Vital signs: Vital Signs Temp 98.1 F 03/04/20 07:00 Pulse 85 03/04/20 07:00 Resp 18 03/04/20 07:00 BP 128/64 03/04/20 07:00 Pulse Ox 99 03/04/20 07:00 Intake & Output 03/03/20 03/04/20 03/04/20 18:59 06:59 18:59 Intake Total 236 Output Total 600 900 Balance -364 -900 Weight 73 kg Intake: Oral 236 Output: Urine 600 900 Other: Voiding Method Indwelling Catheter Indwelling Catheter Indwelling Catheter # Voids 1 ABP, PAP, CO, CI - Last Documented Arterial Blood Pressure 148/54 - Exam General: Sitting up in bed, no acute distress HEENT: [PERRL. EOMI. No pharyngeal erythema or exudate. Oral mucosa moist. Neck: [No adenopathy. No JVD Cardiac: [Heart regular in rate and rhythm. No S3. No S4. No clicks, rubs. No murmur. Lungs: Bilateral bases diminished, occasional scattered coarse rhonchi,no crackles, or wheezing. Abdomen: [Soft, mild mid epigastric tenderness ,No mass. No organomegaly. Positive Bowel sounds present. Extremes: Right hip tender, sensation grossly intact, decreasing edema bilateral lower extremities, no clubbing, no cyanosis, positive pulses Skin: [Right ear lacerations/scabbed with sutures, bilateral forearms with skin tears/abrasions .left hand with first and second digit missing .No rash.] Neurologic: [No lateralizing deficits. CN II - XII grossly intact.] - Labs CBC & Chem 7: 03/04/20 06:04 03/04/20 06:04 Labs: Abnormal Lab Results - Last 24 Hours (Table) 03/03/20 03/03/20 03/04/20 Range/Units 16:38 20:20 06:04 RBC 3.29 L (4.30-5.90) m/uL Hgb 7.9 L (13.0-17.5) gm/dL Hct 27.2 L (39.0-53.0) % MCH 24.1 L (25.0-35.0) pg MCHC 29.1 L (31.0-37.0) g/dL RDW 17.2 H (11.5-15.5) % Neutrophils # 7.8 H (1.3-7.7) k/uL Carbon Dioxide (22-30) mmol/L BUN (9-20) mg/dL Creatinine (0.66-1.25) mg/dL Glucose (74-99) mg/dL POC Glucose (mg/dL) 143 H 178 H (75-99) mg/dL Calcium (8.4-10.2) mg/dL 03/04/20 03/04/20 03/04/20 Range/Units 06:04 06:21 06:56 RBC (4.30-5.90) m/uL Hgb (13.0-17.5) gm/dL Hct (39.0-53.0) % MCH (25.0-35.0) pg MCHC (31.0-37.0) g/dL RDW (11.5-15.5) % Neutrophils # (1.3-7.7) k/uL Carbon Dioxide 32 H (22-30) mmol/L BUN 46 H (9-20) mg/dL Creatinine 2.00 H (0.66-1.25) mg/dL Glucose 40 L* (74-99) mg/dL POC Glucose (mg/dL) 61 L 123 H (75-99) mg/dL Calcium 7.8 L (8.4-10.2) mg/dL 03/04/20 Range/Units 11:54 RBC (4.30-5.90) m/uL Hgb (13.0-17.5) gm/dL Hct (39.0-53.0) % MCH (25.0-35.0) pg MCHC (31.0-37.0) g/dL RDW (11.5-15.5) % Neutrophils # (1.3-7.7) k/uL Carbon Dioxide (22-30) mmol/L BUN (9-20) mg/dL Creatinine (0.66-1.25) mg/dL Glucose (74-99) mg/dL POC Glucose (mg/dL) 151 H (75-99) mg/dL Calcium (8.4-10.2) mg/dL Assessment and Plan Assessment: (1) status post right in situ screw fixation for nondisplaced right transcervical femoral neck fracture , status post fall (2) acute hypoxic respiratory failure secondary to acute on chronic CHF exacerbation, diastolic dysfunction, EF 50-55% (3) severe pulmonary hypertension (4)acute COVID- 19 infection , possible acute COVID-19 Pneumonia. Repeat coronavirus reports detected. (5) Acute on chronic renal failure Current Visit: No Status: Acute Code(s): N17.9 - ACUTE KIDNEY FAILURE, UNSPECIFIED SNOMED Code(s): 28569636 (6) Acute anemia, status post 1 unit packed RBCs (7) elevated troponin, cardiology following (8) Diabetes mellitus Current Visit: No Status: Acute Code(s): E11.9 - TYPE 2 DIABETES MELLITUS WITHOUT COMPLICATIONS SNOMED Code(s): 55486521 (9)Elevated LFTs , mild (10) Hypertension Current Visit: No Status: Acute Code(s): I10 - ESSENTIAL (PRIMARY) HYPERTENSION SNOMED Code(s): 28146279 (11) chronic hypoxic respiratory failure secondary to COPD , wears 2Lnc at home (12)Cognitive impairment, recent formerly [facility] cognitive assessment acute Medical C enter reported 11 out of 30. Current Visit: Yes Status: Acute Code(s): R41.89 - OTH SYMPTOMS AND SIGNS W COGNITIVE FUNCTIONS AND AWARENESS SNOMED Code(s): 538236778 (13) prior nicotine dependence (14) troponin leak, acute coronary syndrome ruled out as per cardiology, possibly related to CHF and renal failure Plan: Continue on current medication regime ,monitoring and symptomatic treatment. Chest ultrasound pending regarding potential right-sided thoracentesis. PT/OT. Pain management/anticoagulation as per orthopedic surgery. Maintain aggressive pulmonary toileting with incentive spirometer reinforced. Diuretics as per nephrology. The impression and plan of care has been dictated as directed. : I performed a history and examination of this patient, discussed the same with the dictator. I agree with the dictator's note ,documented as a scribe. Any additional findings or plans will be noted.
--- NOTE | 2020-03-04 13:59 | PN ---
PROGRESS NOTE Patient is seen for followup for acute kidney injury on top of chronic kidney disease. He is to go with positive. Patient is currently doing well. He was in the ICU and intubated on the vent. He has been extubated, currently getting stronger. Blood sugar was low and otherwise no major complaints this morning. PHYSICAL EXAMINATION: On examination today, blood pressure was 142/67, heart rate 68 per minute, he is afebrile. Examination of the heart S1, S2. Examination of lungs decreased breath sounds at the bases. Abdomen is soft, nontender. Examination of the lower extremities shows no significant edema. LABS: Show hemoglobin 7.9, sodium 138, potassium 3.5, BUN 46, serum creatinine 2.0, calcium 7.8. ASSESSMENT: 1. Acute kidney injury associated with COVID-19 infection, ATN currently improved. 2. Volume overload maintained on IV Lasix daily. I will continue with the current dose. Renal function is stable with creatinine down to 2.0 and staying there. 3. CKD, baseline creatinine 1.5-2 mg/dL secondary to nephrosclerosis, stage III. 4. Anemia with no active bleeding noted currently. PLAN: Continue current dose of IV Lasix. Continue to encourage increased oral intake. Continue antibiotics and physical therapy. MMODL / IJN: [id number] /
[2020-03-04 16:56] LABS: Glucose,Whole Blood 98 mg/dL (75-99)
[2020-03-04 20:42] LABS: Glucose,Whole Blood 141 mg/dL (75-99)
[2020-03-04] MEDS: ALPRAZolam 0.25 MG TAB PO PRN (21:35)
[2020-03-04] MEDS: INSULIN DETEMIR (LEVEMIR) 100 UNIT/ML SYR SQ SCH (21:35)
[2020-03-04] MEDS: ATORVASTATIN 20 MG TAB PO SCH (21:35)
[2020-03-05 04:15] LABS: Glucose,Whole Blood 162 mg/dL (75-99)
[2020-03-05] MEDS: HYDROcodone/APAP 5-325MG 1 EACH TAB PO PRN ×2 (06:00→21:37)
[2020-03-05 06:58] LABS: Glucose,Whole Blood 115 mg/dL (75-99)
[2020-03-05 07:39] LABS: Anisocytosis Slight; Basophils % (A) 1 %; Eosinophils # (A) 0.2 k/uL (0-0.7); Eosinophils % (A) 2 %; HCT 29.3 % (39.0-53.0); HGB 8.4 gm/dL (13.0-17.5); Hypochromasia Marked; Lymphocytes # (A) 0.8 k/uL (1.0-4.8); Lymphocytes % (A) 9 %; MCH 24.1 pg (25.0-35.0); MCHC 28.5 g/dL (31.0-37.0); MCV 84.4 fL (80.0-100.0); Mean Platelet Volume 8.9; Monocytes # (A) 0.5 k/uL (0-1.0); Monocytes % (A) 6 %; Neutrophils # (A) 6.9 k/uL (1.3-7.7); Neutrophils % (A) 81 %; Platelet Count 203 k/uL (150-450); Poikilocytosis Slight; RBC 3.47 m/uL (4.30-5.90); RDW 17.7 % (11.5-15.5); WBC 8.6 k/uL (3.8-10.6)
[2020-03-05 07:51] LABS: Albumin 2.5 g/dL (3.5-5.0); Calcium 8.1 mg/dL (8.4-10.2); Potassium 3.7 mmol/L (3.5-5.1); Total Bilirubin 0.4 mg/dL (0.2-1.3); Total Protein 5.3 g/dL (6.3-8.2)
[2020-03-05] MEDS: INSULIN ASPART (NovoLOG) 100 UNIT/ML VIAL SQ SCH ×4 (08:06→21:22)
[2020-03-05] MEDS: PIPERACILLIN-TAZOBACTAM 3.375 GM in SODIUM CHLORIDE 0.9% 100 ML IVPB SCH ×2 (08:27→21:29)
[2020-03-05] MEDS: LIDOCAINE 5% PATCH TOPICAL SCH (08:27)
[2020-03-05] MEDS: FUROSEMIDE 10 MG/ML 4 ML VIAL IV SCH (08:28)
[2020-03-05] MEDS: buPROPion XL 150 MG TAB.ER.24H PO SCH (08:28)
[2020-03-05] MEDS: LINAGLIPTIN 5 MG TABLET PO SCH (08:28)
[2020-03-05] MEDS: NITROGLYCERIN OINT 1 INCH/GM PACKET TOPICAL SCH ×2 (08:28→17:12)
[2020-03-05] MEDS: PANTOPRAZOLE 40 MG/10 ML VIAL IVP SCH (08:28)
[2020-03-05] MEDS: TAMSULOSIN 0.4 MG CAP.ER.24H PO SCH (08:28)
[2020-03-05] MEDS: ESCITALOPRAM 10 MG TAB PO SCH (08:28)
[2020-03-05] MEDS: METOPROLOL TARTRATE 50 MG TAB PO SCH ×2 (08:28→21:37)
[2020-03-05] MEDS: LACTATED RINGERS 1,000 ML IV SCH (08:29)
[2020-03-05 08:38] LABS: C Reactive Protein 60.8 mg/L (<10.0)
[2020-03-05] MEDS ORDERED: LIDOCAINE 1% INJ 10MG/ML (20 ML MDV) ONE (09:35)
--- NOTE | 2020-03-05 10:58 | XR ---
EXAMINATION TYPE: XR chest 1V portable DATE OF EXAM: 03/05/2020 COMPARISON: 03/04/2020 HISTORY: Status post right-sided thoracentesis TECHNIQUE: Single frontal view of the chest is obtained. FINDINGS: There is improved bilateral pleural effusions now trace on the left and small on the right with associated bibasilar airspace disease. There is diffuse osseous demineralization and enlargemen t of the cardiomediastinal silhouette. No postprocedural pneumothorax identified. IMPRESSION: Improved bilateral pleural effusions now small on the right and trace on the left. No po stprocedural pneumothorax seen.
--- NOTE | 2020-03-05 11:24 | PCN ---
PROCEDURE NOTE PROCEDURE: Right-sided thoracentesis. PREOPERATIVE DIAGNOSIS: Right-sided pleural effusion. POSTOPERATIVE DIAGNOSIS: Right-sided pleural effusion. The right posterior chest was marked by ultrasound. OPERATORS: Dr. Gonzales, Dr. Munguia and Diego Gilbert. DESCRIPTION OF PROCEDURE: There was informed consent and universal timeout. A time-out was completed verifying correct patient, procedure, site, positioning , and implant (s) or special equipment if applicable. Ultrasound guidance was/was not used and appropriate fluid pocket was identified and marked. Patient was positioned, prepped and draped in usual sterile fashion. Lidocaine was used to anesthetize the area. A Thoracentesis catheter was introduced into the pleural space and fluid was removed. Blood loss was none. A chest x-ray was ordered to evaluate for pneumothorax. Total Fluid Removed 1.5 Liters Color of Fluid Bloody Fluid was sent for appropriate laboratory tests. Patient tolerated the procedure well and there were no complications. The fluid will be sent for analysis including cytology, microbiology, and chemistry. Again, there was no immediate complication. MMODL / IJN: [id number] / MTDD
[2020-03-05] MEDS ORDERED: ALBUTEROL HFA INHALER INHALATION PRN (11:52)
[2020-03-05 12:06] LABS: Glucose,Whole Blood 123 mg/dL (75-99)
[2020-03-05] MEDS: ALBUTEROL HFA INHALER INHALATION SCH ×3 (12:20→19:20)
--- NOTE | 2020-03-05 13:01 | P.PN ---
Subjective Progress Note Date: 03/05/20 Principal diagnosis: Fall, nondisplaced right femoral neck fracture, acute on chronic hypoxic respiratory failure related to exacerbation of CHF The patient is seen today 03/05/2020 in follow-up on the regular medical floor. He is awake and alert in no acute distress. He is maintaining O2 saturations in the high 90s on 6 L high flow nasal cannula. He's been afebrile. Hemod ynamically stable. He was found to have a significant 10 cm right-sided pleural effusion. He did undergo a thoracentesis today with Dr. Gonzales and 1.5 L of fluid was removed. Fluid analysis and cytology are pending. Follow-up chest x- ray showed no pneumothorax. There was significant improvement in the effusion. Objective - Vital Signs Vital signs: Vital Signs Temp 98.2 F 03/05/20 08:03 Pulse 69 03/05/20 08:03 Resp 17 03/05/20 08:03 BP 161/79 03/05/20 08:03 Pulse Ox 99 03/05/20 08:03 Intake & Output 03/04/20 03/05/20 03/05/20 18:59 06:59 18:59 Intake Total 296 Output Total 400 550 Balance -104 -550 Weight 73 kg 75 kg Intake: Oral 296 Output: Urine 400 550 Other: Voiding Method Indwelling Catheter Indwelling Catheter Indwelling Catheter # Bowel Movements 1 ABP, PAP, CO, CI - Last Documented Arterial Blood Pressure 148/54 - Exam GENERAL EXAM: Arousable, 74-year-old white male, on 6 L of oxygen with a pulse ox of 99% comfortable in no apparent distress. HEAD: Normocephalic/atraumatic. EYES: Normal reaction of pupils, equal size. Conjunctiva pink, sclera white. NOSE: Clear with pink turbinates. THROAT: No erythema or exudates. NECK: No masses, no JVD, no thyroid enlargement, no adenopathy. CHEST: No chest wall deformity. Symmetrical expansion. LUNGS: Equal air entry with few scattered rhonchi, crackles in posterior bases, right greater than left. CVS: Regular rate and rhythm, normal S1 and S2, no gallops, no murmurs, no rubs ABDOMEN: Soft, nontender. No hepatosplenomegaly, normal bowel sounds, no guarding or rigidity. EXTREMITIES: No clubbing, no cyanosis, 2+ pulses and upper and lower extremities. Tenderness in the right hip, with 1+ lower extremity edema. Missing first and second digits of the left hand MUSCULOSKELETAL: Muscle strength and tone normal. SPINE: No scoliosis or deformity SKIN: No rashes CENTRAL NERVOUS SYSTEM: Somnolent. But responsive No focal deficits, tone is normal in all 4 extremities. - Labs CBC & Chem 7: 03/05/20 06:57 03/05/20 06:57 Labs: Abnormal Lab Results - Last 24 Hours (Table) 03/04/20 03/05/20 03/05/20 Range/Units 20:41 04:13 06:55 RBC (4.30-5.90) m/uL Hgb (13.0-17.5) gm/dL Hct (39.0-53.0) % MCH (25.0-35.0) pg MCHC (31.0-37.0) g/dL RDW (11.5-15.5) % Lymphocytes # (1.0-4.8) k/uL D-Dimer (<0.60) mg/L FEU Carbon Dioxide (22-30) mmol/L BUN (9-20) mg/dL Creatinine (0.66-1.25) mg/dL Glucose (74-99) mg/dL POC Glucose (mg/dL) 141 H 162 H 115 H (75-99) mg/dL Calcium (8.4-10.2) mg/dL Lactate Dehydrogenase (313-618) U/L Creatine Kinase (55-170) U/L C-Reactive Protein (<10.0) mg/L Total Protein (6.3-8.2) g/dL Albumin (3.5-5.0) g/dL 03/05/20 03/05/20 03/05/20 Range/Units 06:57 06:57 06:57 RBC 3.47 L (4.30-5.90) m/uL Hgb 8.4 L (13.0-17.5) gm/dL Hct 29.3 L (39.0-53.0) % MCH 24.1 L (25.0-35.0) pg MCHC 28.5 L (31.0-37.0) g/dL RDW 17.7 H (11.5-15.5) % Lymphocytes # 0.8 L (1.0-4.8) k/uL D-Dimer 9.50 H (<0.60) mg/L FEU Carbon Dioxide 33 H (22-30) mmol/L BUN 42 H (9-20) mg/dL Creatinine 2.06 H (0.66-1.25) mg/dL Glucose 106 H (74-99) mg/dL POC Glucose (mg/dL) (75-99) mg/dL Calcium 8.1 L (8.4-10.2) mg/dL Lactate Dehydrogenase 750 H (313-618) U/L Creatine Kinase 33 L (55-170) U/L C-Reactive Protein 60.8 H (<10.0) mg/L Total Protein 5.3 L (6.3-8.2) g/dL Albumin 2.5 L (3.5-5.0) g/dL 03/05/20 Range/Units 12:00 RBC (4.30-5.90) m/uL Hgb (13.0-17.5) gm/dL Hct (39.0-53.0) % MCH (25.0-35.0) pg MCHC (31.0-37.0) g/dL RDW (11.5-15.5) % Lymphocytes # (1.0-4.8) k/uL D-Dimer (<0.60) mg/L FEU Carbon Dioxide (22-30) mmol/L BUN (9-20) mg/dL Creatinine (0.66-1.25) mg/dL Glucose (74-99) mg/dL POC Glucose (mg/dL) 123 H (75-99) mg/dL Calcium (8.4-10.2) mg/dL Lactate Dehydrogenase (313-618) U/L Creatine Kinase (55-170) U/L C-Reactive Protein (<10.0) mg/L Total Protein (6.3-8.2) g/dL Albumin (3.5-5.0) g/dL Assessment and Plan Assessment: 1 Acute trauma including a nondisplaced right femoral neck fracture status post fall. Right-sided chest wall pain. Skin abrasions. Laceration to the right ear requiring sutures. Status post repair of the right femoral neck fracture 2 Acute CoVID 19 infection 3 Acute hypoxic respiratory failure secondary to an acute exacerbation of chronic diastolic congestive heart failure with preserved left ventricular systolic function. Developed a large right pleural effusion. Status post thoracentesis on 03/05/2020. Fluid analysis and cytology pending. 4 Severe pulmonary hypertension with an RVSP of 67 mmHg. 5 Acute anemia with hemoglobin is 6.9, received 1 unit packed red blood cells, current hemoglobin 8.3 6 Acute on chronic renal failure with current creatinine 3.39 7 Troponin leak 8 Elevated LFTs 9 History of dementia 10 Diabetes mellitus, type II 11 Hyperlipidemia 12 Hypertension 13 Chronic obstructive pulmonary disease, oxygen dependent 14 History of previous tobacco dependence of 42 years at 1 pack per day. Quit approximately 3 years ago 15 Poor overall functional performance based on the above-mentioned multiple comorbidities Plan: The patient was seen and evaluated by Dr. Gonzales Ultrasound of the chest reviewed Right-sided thoracentesis was performed today with 1.5 L of fluid removed Fluid analysis and cytology pending Follow-up chest x-ray with no pneumothorax Increase his activity as tolerated Titrate down the FiO2 as tolerated We'll continue to follow and make further recommendations based on his clinical status I, the cosigning physician, performed a history & physical examination of the patient. Lungs sounds with few scattered rhonchi, crackles in the posterior bases, right greater than left. Maintaining good O2 saturations in the 90s on 6 L/m per nasal cannula. I discussed the assessment and plan of care with my nurse practitioner, Eveline Munguia. I attest to the above consultation as dictated by her.
--- NOTE | 2020-03-05 13:58 | PN ---
PROGRESS NOTE Patient is seen for followup for acute kidney injury associated with underlying COVID infection and also for chronic kidney disease. Renal function has improved. Creatinine has improved to around 2.0 from 3.8 at peak. Patient's baseline is about 1.5-2 mg/dL. He is currently comfortable, he is not in any acute distress. He is maintained on IV Lasix once a day. Overall, he has been getting stronger since he has been transferred out of the ICU. PHYSICAL EXAMINATION: Today, patient is comfortable. Blood pressure is 159/74, heart rate 67 per minute. His chart is reviewed. Patient is not examined. There is no significant edema noted. He is tolerating oral intake fairly well. [employer] exam is grossly intact. LABS: Show sodium of 139, potassium 3.7, chloride 100, BUN 42, serum creatinine 2.06. ASSESSMENT: 1. Acute kidney injury, ATN currently improved. 2. Chronic kidney disease secondary to nephrosclerosis, stage III. Baseline creatinine about 1.5-2 mg/dL. Renal function at baseline. 3. COVID-19 pneumonia, currently improved. Patient is has been transferred out of the ICU. He is status post extubation. 4. Hypoxic respiratory failure secondary to COVID-19 pneumonia, status post extubation. 5. Diastolic heart failure with severe pulmonary hypertension, maintained on once a day dosing of Lasix, tolerating well. PLAN: Continue with the IV Lasix. Switch to p.o. Lasix over the weekend. Continue to encourage increased oral intake. MMODL / IJN: [id number] /
[2020-03-05 15:10] LABS: Appearance,BF Cloudy; Color,BF Orange; Nucleated Cells, Body Fluid 100 /uL; RBC, Body Fluid 17560 /uL
[2020-03-05 15:12] LABS: Mononuclear WBC,Body Fluid 36 %; Polynuclear WBC,Body Fluid 64 %; Total Cells Counted,Body Fluid 100
[2020-03-05 16:22] LABS: Ferritin 119.3 ng/mL (22.0-322.0)
--- NOTE | 2020-03-05 16:41 | P.PN ---
Subjective Progress Note Date: 03/05/20 Principal diagnosis: 74-year-old male patient that was [facility] for the subacute rehab. He suffered a right hip fracture and multiple skin tears and abrasions from a fall while taking a shower. Past medical history this gentleman is his hyperlipidemia severe pulmonary hypertension, hypertension, type 2 diabetes, COPD, former smoker, chronic renal insufficiency, recent pneumonia, and early dementia. He scored 11 out of 30 in the Montral cognitive scoring completed at [facility]. Patient sleeping in bed, but easily arousable, alert and oriented 3 following commands. Ultrasound of the right chest cavity was yesterday found pleural effusion approximately 10 cm. A thoracentesis was completed today by Dr. Gonzales in which 1.5 L of fluid was removed. Fluid was sent for analysis and cytology results pending. He is maintaining oxygen saturations is 100% on 6 L nasal cannula. Blood pressure is 142/63, heart rate is 63, respiratory rate 17, and is afebrile the last temp of 98.4. Objective - Vital Signs Vital signs: Vital Signs Temp 98.6 F 03/05/20 11:23 Pulse 63 03/05/20 11:23 Resp 17 03/05/20 11:23 BP 142/63 03/05/20 11:23 Pulse Ox 100 03/05/20 11:23 Intake & Output 03/04/20 03/05/20 03/05/20 18:59 06:59 18:59 Intake Total 296 Output Total 400 550 Balance -104 -550 Weight 73 kg 75 kg Intake: Oral 296 Output: Urine 400 550 Other: Voiding Method Indwelling Catheter Indwelling Catheter Indwelling Catheter # Bowel Movements 1 ABP, PAP, CO, CI - Last Documented Arterial Blood Pressure 148/54 - Exam GENERAL: 74-year-old man sleeping in bed, easy to wake HEAD: Atraumatic, normocephalic. EYES: Pupils equal round and reactive to light, extraocular movements intact, sclera anicteric, conjunctiva are normal. ENT:nares patent, oropharynx clear without exudates. Moist mucous membranes. NECK: No masses, no JVD, no thyroid enlargement, no bruit LUNGS: Breath sounds with bilateral scattered rhoncci and crackles in the bases with right more than left. HEART: Regular rate and rhythm without murmurs, rubs or gallops.S1S2 Normal ABDOMEN: Soft, nontender, normoactive bowel sounds. No guarding, no rebound. No masses appreciated. EXTREMITIES: no pitting or edema. No clubbing or cyanosis. Left hand weakness first and second digits, noted tenderness to right hip Surgical site. NEUROLOGICAL: No focal deficits PSYCH: Unable to assess. SKIN: Warm, dry, no rashes, - Labs CBC & Chem 7: 03/05/20 06:57 03/05/20 06:57 Labs: Abnormal Lab Results - Last 24 Hours (Table) 03/04/20 03/05/20 03/05/20 Range/Units 20:41 04:13 06:55 RBC (4.30-5.90) m/uL Hgb (13.0-17.5) gm/dL Hct (39.0-53.0) % MCH (25.0-35.0) pg MCHC (31.0-37.0) g/dL RDW (11.5-15.5) % Lymphocytes # (1.0-4.8) k/uL D-Dimer (<0.60) mg/L FEU Carbon Dioxide (22-30) mmol/L BUN (9-20) mg/dL Creatinine (0.66-1.25) mg/dL Glucose (74-99) mg/dL POC Glucose (mg/dL) 141 H 162 H 115 H (75-99) mg/dL Calcium (8.4-10.2) mg/dL Lactate Dehydrogenase (313-618) U/L Creatine Kinase (55-170) U/L C-Reactive Protein (<10.0) mg/L Total Protein (6.3-8.2) g/dL Albumin (3.5-5.0) g/dL 03/05/20 03/05/20 03/05/20 Range/Units 06:57 06:57 06:57 RBC 3.47 L (4.30-5.90) m/uL Hgb 8.4 L (13.0-17.5) gm/dL Hct 29.3 L (39.0-53.0) % MCH 24.1 L (25.0-35.0) pg MCHC 28.5 L (31.0-37.0) g/dL RDW 17.7 H (11.5-15.5) % Lymphocytes # 0.8 L (1.0-4.8) k/uL D-Dimer 9.50 H (<0.60) mg/L FEU Carbon Dioxide 33 H (22-30) mmol/L BUN 42 H (9-20) mg/dL Creatinine 2.06 H (0.66-1.25) mg/dL Glucose 106 H (74-99) mg/dL POC Glucose (mg/dL) (75-99) mg/dL Calcium 8.1 L (8.4-10.2) mg/dL Lactate Dehydrogenase 750 H (313-618) U/L Creatine Kinase 33 L (55-170) U/L C-Reactive Protein 60.8 H (<10.0) mg/L Total Protein 5.3 L (6.3-8.2) g/dL Albumin 2.5 L (3.5-5.0) g/dL 03/05/20 Range/Units 12:00 RBC (4.30-5.90) m/uL Hgb (13.0-17.5) gm/dL Hct (39.0-53.0) % MCH (25.0-35.0) pg MCHC (31.0-37.0) g/dL RDW (11.5-15.5) % Lymphocytes # (1.0-4.8) k/uL D-Dimer (<0.60) mg/L FEU Carbon Dioxide (22-30) mmol/L BUN (9-20) mg/dL Creatinine (0.66-1.25) mg/dL Glucose (74-99) mg/dL POC Glucose (mg/dL) 123 H (75-99) mg/dL Calcium (8.4-10.2) mg/dL Lactate Dehydrogenase (313-618) U/L Creatine Kinase (55-170) U/L C-Reactive Protein (<10.0) mg/L Total Protein (6.3-8.2) g/dL Albumin (3.5-5.0) g/dL Assessment and Plan (1) COVID-19 Current Visit: Yes Status: Acute Code(s): U07.1 - COVID-19 SNOMED Code(s): 909335880 (2) Closed right hip fracture Current Visit: Yes Status: Acute Code(s): S72.001A - FRACTURE OF UNSP PART OF NECK OF RIGHT FEMUR, INIT SNOMED Code(s): 673459463 (3) Fall Current Visit: Yes Status: Acute Code(s): W19.XXXA - UNSPECIFIED FALL, INITIAL ENCOUNTER SNOMED Code(s): 8487674 (4) Chronic renal failure Current Visit: Yes Status: Acute Code(s): N18.9 - CHRONIC KIDNEY DISEASE, UNSPECIFIED SNOMED Code(s): 82705936 (5) Cognitive impairment Current Visit: Yes Status: Acute Code(s): R41.89 - OTH SYMPTOMS AND SIGNS W COGNITIVE FUNCTIONS AND AWARENESS SNOMED Code(s): 942456917 (6) Diabetes mellitus Current Visit: No Status: Acute Code(s): E11.9 - TYPE 2 DIABETES MELLITUS WITHOUT COMPLICATIONS SNOMED Code(s): 99866600 (7) Elevated troponin I level Current Visit: Yes Status: Acute Code(s): R79.89 - OTHER SPECIFIED ABNORMAL FINDINGS OF BLOOD CHEMISTRY SNOMED Code(s): 261040690 (8) Hyperlipidemia Current Visit: No Status: Acute Code(s): E78.5 - HYPERLIPIDEMIA, UNSPECIFIED SNOMED Code(s): 64169510 (9) Hypertension Current Visit: No Status: Acute Code(s): I10 - ESSENTIAL (PRIMARY) HYPERTENSION SNOMED Code(s): 61494043 (10) Respiratory distress Current Visit: Yes Status: Acute Code(s): R06.03 - ACUTE RESPIRATORY DISTRESS SNOMED Code(s): 789055347 Plan: 1. Continue to monitor renal function 2. Continue to monitor vital signs and oxygenation 3. Continue current medication regime 4. Pain management and anticoagulation as per orthopedic surgery. 5. Diuretics as per nephrology. 6. We'll follow closely Time with Patient: Greater than 30
[2020-03-05 17:04] LABS: Glucose,Whole Blood 201 mg/dL (75-99)
[2020-03-05 20:26] LABS: Glucose, BF Source Pleural Fluid; Glucose, Body Fluid 118 mg/dL; LDH, Body Fluid Source Pleural Fluid; Total Protein, Body Fluid 2000 mg/dL
[2020-03-05 21:22] LABS: Glucose,Whole Blood 126 mg/dL (75-99)
[2020-03-05] MEDS: ATORVASTATIN 20 MG TAB PO SCH (21:29)
[2020-03-05] MEDS: INSULIN DETEMIR (LEVEMIR) 100 UNIT/ML SYR SQ SCH (21:29)
[2020-03-06] MEDS: NITROGLYCERIN OINT 1 INCH/GM PACKET TOPICAL SCH ×4 (01:00→23:59)
[2020-03-06] MEDS: HYDROcodone/APAP 5-325MG 1 EACH TAB PO PRN ×3 (04:34→23:59)
[2020-03-06] MEDS: LACTATED RINGERS 1,000 ML IV SCH (06:14)
[2020-03-06] MEDS: TIOTROPIUM 18 MCG/PUFF INHALER INHALATION SCH (07:23)
[2020-03-06] MEDS: ALBUTEROL HFA INHALER INHALATION SCH ×4 (07:23→18:44)
[2020-03-06 07:24] LABS: Glucose,Whole Blood 94 mg/dL (75-99)
[2020-03-06] MEDS: INSULIN ASPART (NovoLOG) 100 UNIT/ML VIAL SQ SCH ×4 (07:39→20:54)
[2020-03-06 07:54] LABS: Anisocytosis Slight; Basophils % (A) 0 %; Eosinophils # (A) 0.2 k/uL (0-0.7); Eosinophils % (A) 2 %; HCT 27.4 % (39.0-53.0); HGB 7.9 gm/dL (13.0-17.5); Hypochromasia Marked; Lymphocytes # (A) 0.6 k/uL (1.0-4.8); Lymphocytes % (A) 7 %; MCH 23.6 pg (25.0-35.0); MCHC 28.8 g/dL (31.0-37.0); MCV 82.1 fL (80.0-100.0); Mean Platelet Volume 10.7; Monocytes # (A) 0.5 k/uL (0-1.0); Monocytes % (A) 5 %; Neutrophils # (A) 7.3 k/uL (1.3-7.7); Neutrophils % (A) 83 %; Platelet Count 201 k/uL (150-450); Poikilocytosis Slight; RBC 3.34 m/uL (4.30-5.90); WBC 8.8 k/uL (3.8-10.6)
[2020-03-06 08:08] LABS: Albumin 2.2 g/dL (3.5-5.0); C Reactive Protein 49.4 mg/L (<10.0); Potassium 3.3 mmol/L (3.5-5.1); Total Bilirubin 0.3 mg/dL (0.2-1.3); Total Protein 4.8 g/dL (6.3-8.2)
[2020-03-06] MEDS: PIPERACILLIN-TAZOBACTAM 3.375 GM in SODIUM CHLORIDE 0.9% 100 ML IVPB SCH ×2 (08:24→20:07)
[2020-03-06] MEDS: buPROPion XL 150 MG TAB.ER.24H PO SCH (08:25)
[2020-03-06] MEDS: LIDOCAINE 5% PATCH TOPICAL SCH (08:25)
[2020-03-06] MEDS: LINAGLIPTIN 5 MG TABLET PO SCH (08:25)
[2020-03-06] MEDS: FUROSEMIDE 10 MG/ML 4 ML VIAL IV SCH (08:25)
[2020-03-06] MEDS: TAMSULOSIN 0.4 MG CAP.ER.24H PO SCH (08:25)
[2020-03-06] MEDS: METOPROLOL TARTRATE 50 MG TAB PO SCH ×2 (08:25→20:06)
[2020-03-06] MEDS: ESCITALOPRAM 10 MG TAB PO SCH (08:25)
[2020-03-06] MEDS: PANTOPRAZOLE 40 MG/10 ML VIAL IVP SCH (08:25)
[2020-03-06] MEDS ORDERED: POTASSIUM CHLORIDE ER 20 MEQ TAB.ER PO STA (09:32)
--- NOTE | 2020-03-06 09:42 | P.PN ---
Subjective Progress Note Date: 03/06/20 Principal diagnosis: 74-year-old male patient that was at [facility] for the subacute rehab. He suffered a right hip fracture and multiple skin tears and abrasions from a fa ll while taking a shower. Past medical history: hyperlipidemia severe pulmonary hypertension, hypertension, type 2 diabetes, COPD, former smoker, chronic renal insufficiency, recent pneumonia, and early dementia. In October 2019, while at [facility] he scored 11 out of 30 in the Montral cognitive scoring. 03/05/2020 Patient sleeping in bed, but easily arousable, alert and oriented 3 following commands. Ultrasound of the right chest cavity was yesterday found pleural effusion approximately 10 cm. A thoracentesis was completed today by Dr. Gonzales in which 1.5 L of fluid was removed. Fluid was sent for analysis and cytology results pending. He is maintaining oxygen saturations is 100% on 6 L nasal cannula. Blood pressure is 142/63, heart rate is 63, respiratory rate 17, and is afebrile the last temp of 98.4. 03/06/2020 patient sitting up in bed, awake, alert and in no acute distress. Only complaint that he hasn't this time is pain in the right lateral chest wall in soreness in his right hip. Is alert and oriented 3 following commands, on 3 L nasal cannula with a spot check SpO2 of 91%. Today's labs white blood count 8.8, hemoglobin 7.9, hematocrit 27.4, platelet count of 18. Chemistry this morning reveals sodium of 138, potassium 3.3, chloride of 98, nightly of 39, and a creatinine of 2.08 and a glucose level of 72. Last her vital signs temperature is 98.7 oral pulse rate is 68, blood pressure 145/63 oxygen saturation 94% on 4 L at that time. When evaluated in the room had a respiratory rate of 22 on 3 L with a pulse ox of 91%. He is increased to 44 L nasal cannula and will be rechecked with the oxygen saturation goal of 93% or greater. Objective - Vital Signs Vital signs: Vital Signs Temp 98.7 F 03/06/20 02:30 Pulse 68 03/06/20 02:30 Resp 17 03/05/20 15:07 BP 145/63 03/06/20 02:30 Pulse Ox 94 L 03/06/20 02:30 Intake & Output 03/05/20 03/06/20 03/06/20 18:59 06:59 18:59 Output Total 4400 Balance -4400 Output: Urine 4400 Other: Voiding Method Indwelling Catheter Indwelling Catheter # Bowel Movements 1 ABP, PAP, CO, CI - Last Documented Arterial Blood Pressure 148/54 - Exam GENERAL: 74-year-old man setting up in bed, mildly tachypneic but in no apparent distress HEAD: Atraumatic, normocephalic. EYES: Pupils equal round and reactive to light, extraocular movements intact, sclera anicteric, conjunctiva are normal. ENT:nares patent, oropharynx clear without exudates. Moist mucous membranes. NECK: No masses, no JVD, no thyroid enlargement, no bruit LUNGS: Breath sounds with bilateral scattered rhoncci and crackles in the bases with right more than left. HEART: Regular rate and rhythm without murmurs, rubs or gallops.S1S2 Normal ABDOMEN: Soft, nontender, normoactive bowel sounds. No guarding, no rebound. No masses appreciated. EXTREMITIES: no pitting or edema. No clubbing or cyanosis. Left hand with first and second digits, noted tenderness to right hip Surgical site. NEUROLOGICAL: No focal deficits, cranial nerves II through XII grossly intact PSYCH: Alert and oriented 3,. SKIN: Warm, dry, no rashes, right ear laceration/scabbed, bilateral forearm skin tears\abrasions - Labs CBC & Chem 7: 03/06/20 07:35 03/06/20 07:35 Labs: Abnormal Lab Results - Last 24 Hours (Table) 03/05/20 03/05/20 03/05/20 Range/Units 12:00 16:54 21:21 RBC (4.30-5.90) m/uL Hgb (13.0-17.5) gm/dL Hct (39.0-53.0) % MCH (25.0-35.0) pg MCHC (31.0-37.0) g/dL RDW (11.5-15.5) % Lymphocytes # (1.0-4.8) k/uL D-Dimer (<0.60) mg/L FEU Potassium (3.5-5.1) mmol/L Carbon Dioxide (22-30) mmol/L BUN (9-20) mg/dL Creatinine (0.66-1.25) mg/dL Glucose (74-99) mg/dL POC Glucose (mg/dL) 123 H 201 H 126 H (75-99) mg/dL Calcium (8.4-10.2) mg/dL Creatine Kinase (55-170) U/L C-Reactive Protein (<10.0) mg/L Total Protein (6.3-8.2) g/dL Albumin (3.5-5.0) g/dL 03/06/20 03/06/20 03/06/20 Range/Units 07:35 07:35 07:35 RBC 3.34 L (4.30-5.90) m/uL Hgb 7.9 L (13.0-17.5) gm/dL Hct 27.4 L (39.0-53.0) % MCH 23.6 L (25.0-35.0) pg MCHC 28.8 L (31.0-37.0) g/dL RDW 18.0 H (11.5-15.5) % Lymphocytes # 0.6 L (1.0-4.8) k/uL D-Dimer 7.58 H (<0.60) mg/L FEU Potassium 3.3 L (3.5-5.1) mmol/L Carbon Dioxide 35 H (22-30) mmol/L BUN 39 H (9-20) mg/dL Creatinine 2.08 H (0.66-1.25) mg/dL Glucose 72 L (74-99) mg/dL POC Glucose (mg/dL) (75-99) mg/dL Calcium 8.0 L (8.4-10.2) mg/dL Creatine Kinase 25 L (55-170) U/L C-Reactive Protein 49.4 H (<10.0) mg/L Total Protein 4.8 L (6.3-8.2) g/dL Albumin 2.2 L (3.5-5.0) g/dL Microbiology - Last 24 Hours (Table) 03/05/20 09:55 Acid Fast Bacilli Smear - Final Pleural Fluid Acid Fast Bacilli Culture - Preliminary 03/05/20 09:55 Gram Stain - Preliminary Pleural Fluid Body Fluid Culture - Preliminary 03/05/20 09:55 Anaerobic Culture - Preliminary Pleural Fluid 03/05/20 09:55 Fungal Culture - Preliminary Pleural Fluid Assessment and Plan (1) COVID-19 Current Visit: Yes Status: Acute Code(s): U07.1 - COVID-19 SNOMED Code(s): 051873117 (2) Closed right hip fracture Current Visit: Yes Status: Acute Code(s): S72.001A - FRACTURE OF UNSP PART OF NECK OF RIGHT FEMUR, INIT SNOMED Code(s): 893782439 (3) Fall Current Visit: Yes Status: Acute Code(s): W19.XXXA - UNSPECIFIED FALL, INITIAL ENCOUNTER SNOMED Code(s): 0577266 (4) Chronic renal failure Current Visit: Yes Status: Acute Code(s): N18.9 - CHRONIC KIDNEY DISEASE, UNSPECIFIED SNOMED Code(s): 27305291 (5) Cognitive impairment Current Visit: Yes Status: Acute Code(s): R41.89 - OTH SYMPTOMS AND SIGNS W COGNITIVE FUNCTIONS AND AWARENESS SNOMED Code(s): 173900137 (6) Diabetes mellitus Current Visit: No Status: Acute Code(s): E11.9 - TYPE 2 DIABETES MELLITUS WITHOUT COMPLICATIONS SNOMED Code(s): 80028647 (7) Elevated troponin I level Current Visit: Yes Status: Acute Code(s): R79.89 - OTHER SPECIFIED ABNORMAL FINDINGS OF BLOOD CHEMISTRY SNOMED Code(s): 279889881 (8) Hyperlipidemia Current Visit: No Status: Acute Code(s): E78.5 - HYPERLIPIDEMIA, UNSPECIFIED SNOMED Code(s): 77668115 (9) Hypertension Current Visit: No Status: Acute Code(s): I10 - ESSENTIAL (PRIMARY) HYPERTENSION SNOMED Code(s): 43271858 (10) Respiratory distress Current Visit: Yes Status: Acute Code(s): R06.03 - ACUTE RESPIRATORY DISTRESS SNOMED Code(s): 174434968 Plan: 1. Continue to monitor renal function 2. Continue to monitor vital signs and oxygenation 3. Continue current medication regime 4. Pain management and anticoagulation as per orthopedic surgery. 5. Diuretics as per nephrology. 6. Continue to follow pulmonary recommendations 7. We'll order chest x-ray. 8. Increase activity as tolerated 9. Utilize incentive spirometry 10 times an hour while awake 10. We will continue to follow closely Time with Patient: Greater than 30
--- NOTE | 2020-03-06 10:00 | XR ---
EXAMINATION TYPE: XR chest 1V portable DATE OF EXAM: 03/06/2020 HISTORY: Worsening lung sounds on the right, tachypnea. REFERENCE: Previous study dated 03/05/2020. FINDINGS: The heart is enlarged. There are bilateral pleural effusions. There is patchy airspace dise ase present bilaterally. This may have worsened somewhat. IMPRESSION: 1. CARDIOMEGALY. 2. SMALL, BILATERAL EFFUSIONS. 3. PATCHY, BILATERAL AIRSPACE DISEASE.
--- NOTE | 2020-03-06 10:27 | P.PN ---
Subjective Patient is seen in follow-up for acute kidney injury on chronic kidney disease. Renal function stable. Good urine output. No chest pain. Oral intake fair. Vital signs are stable. General: The patient appeared well nourished and normally developed. HEENT: Head exam is unremarkable. Neck is without jugular venous distension. LUNGS: Breath sounds decreased. HEART: Rate and Rhythm are regular. First and second heart sounds normal. No murmurs, rubs or gallops. ABDOMEN: Abdominal exam reveals normal bowel sounds. Non-tender and non-distended. EXTREMITITES: 1+ edema. Objective - Vital Signs Vital signs: Vital Signs Temp 98.7 F 03/06/20 02:30 Pulse 68 03/06/20 02:30 Resp 17 03/05/20 15:07 BP 145/63 03/06/20 02:30 Pulse Ox 94 L 03/06/20 02:30 Intake & Output 03/05/20 03/06/20 03/06/20 18:59 06:59 18:59 Output Total 4400 Balance -4400 Output: Urine 4400 Other: Voiding Method Indwelling Catheter Indwelling Catheter # Bowel Movements 1 1 ABP, PAP, CO, CI - Last Documented Arterial Blood Pressure 148/54 - Labs CBC & Chem 7: 03/06/20 07:35 03/06/20 07:35 Labs: Abnormal Lab Results - Last 24 Hours (Table) 03/05/20 03/05/20 03/05/20 Range/Units 12:00 16:54 21:21 RBC (4.30-5.90) m/uL Hgb (13.0-17.5) gm/dL Hct (39.0-53.0) % MCH (25.0-35.0) pg MCHC (31.0-37.0) g/dL RDW (11.5-15.5) % Lymphocytes # (1.0-4.8) k/uL D-Dimer (<0.60) mg/L FEU Potassium (3.5-5.1) mmol/L Carbon Dioxide (22-30) mmol/L BUN (9-20) mg/dL Creatinine (0.66-1.25) mg/dL Glucose (74-99) mg/dL POC Glucose (mg/dL) 123 H 201 H 126 H (75-99) mg/dL Calcium (8.4-10.2) mg/dL Creatine Kinase (55-170) U/L C-Reactive Protein (<10.0) mg/L Total Protein (6.3-8.2) g/dL Albumin (3.5-5.0) g/dL 03/06/20 03/06/20 03/06/20 Range/Units 07:35 07:35 07:35 RBC 3.34 L (4.30-5.90) m/uL Hgb 7.9 L (13.0-17.5) gm/dL Hct 27.4 L (39.0-53.0) % MCH 23.6 L (25.0-35.0) pg MCHC 28.8 L (31.0-37.0) g/dL RDW 18.0 H (11.5-15.5) % Lymphocytes # 0.6 L (1.0-4.8) k/uL D-Dimer 7.58 H (<0.60) mg/L FEU Potassium 3.3 L (3.5-5.1) mmol/L Carbon Dioxide 35 H (22-30) mmol/L BUN 39 H (9-20) mg/dL Creatinine 2.08 H (0.66-1.25) mg/dL Glucose 72 L (74-99) mg/dL POC Glucose (mg/dL) (75-99) mg/dL Calcium 8.0 L (8.4-10.2) mg/dL Creatine Kinase 25 L (55-170) U/L C-Reactive Protein 49.4 H (<10.0) mg/L Total Protein 4.8 L (6.3-8.2) g/dL Albumin 2.2 L (3.5-5.0) g/dL Microbiology - Last 24 Hours (Table) 03/05/20 09:55 Gram Stain - Preliminary Pleural Fluid Body Fluid Culture - Preliminary 03/05/20 09:55 Acid Fast Bacilli Smear - Final Pleural Fluid Acid Fast Bacilli Culture - Preliminary 03/05/20 09:55 Anaerobic Culture - Preliminary Pleural Fluid 03/05/20 09:55 Fungal Culture - Preliminary Pleural Fluid Assessment and Plan Plan: Assessment: 1. Acute kidney injury secondary to ATN secondary to cardiorenal syndrome and additional component of covid-19 infection and acute blood loss anemia. Creatinine peaked at 3.86 this admission. GFR now back to baseline. UA benign. Right kidney small in size but no evidence of hydronephrosis. 2. Chronic kidney disease stage III secondary to nephrosclerosis with baseline creatinine in the range of 1.6-2. 3. Acute blood loss anemia scheduled for blood transfusion on February 15. Rule out iron deficiency. 4. Status post fall with right femoral neck fracture. Status post surgical intervention. 5. Covid 19 pneumonia. Improved. 6. Insulin-dependent diabetes mellitus. 7. Volume overload. Better with diuresis. 8. Acute on chronic diastolic CHF with moderate mitral regurgitation, moderate to severe tricuspid regurgitation. 9. Severe pulmonary hypertension. 10. Hypokalemia secondary to diuresis. Plan: Maintain Lasix 40 mg IV once daily. Avoid nephrotoxins. Replace potassium. 40 mg once today. Continue to monitor renal function and urine output. Check iron studies.
--- NOTE | 2020-03-06 12:02 | P.PN ---
Subjective Progress Note Date: 03/06/20 Principal diagnosis: Fall, nondisplaced right femoral neck fracture, acute on chronic hypoxic respiratory failure related to exacerbation of CHF The patient is seen today 03/05/2020 in follow-up on the regular medical floor. He is awake and alert in no acute distress. He is maintaining O2 saturations in the high 90s on 6 L high flow nasal cannula. He's been afebrile. Hemod ynamically stable. He was found to have a significant 10 cm right-sided pleural effusion. He did undergo a thoracentesis today with Dr. Gonzales and 1.5 L of fluid was removed. Fluid analysis and cytology are pending. Follow-up chest x- ray showed no pneumothorax. There was significant improvement in the effusion. The patient is seen today 03/16/2020 in follow-up on the regular medical floor. He is currently sitting up in bed. Awake and alert in no acute distress. Breathing easier today compared to yesterday. He is status post thoracentesis on the right chest. Today's chest x-ray continues to show bilateral patchy airspace disease. Improvement in the right pleural effusion. He is maintaining good O2 saturations in the 90s on 4 L high flow nasal cannula. Afebrile. Pleural fluid cultures are pending. White count 8.8. Hemoglobin 7.9. D-dimer 7.58. Sodium 138. Potassium 3.3. Creatinine 2.08. LDH 475. C-reactive protein 49. He remains on Zosyn, bronchodilators, IV diuretics. Objective - Vital Signs Vital signs: Vital Signs Temp 98.1 F 03/06/20 11:00 Pulse 65 03/06/20 11:00 Resp 18 03/06/20 11:00 BP 163/74 03/06/20 11:00 Pulse Ox 98 03/06/20 11:00 Intake & Output 03/05/20 03/06/20 03/06/20 18:59 06:59 18:59 Output Total 4400 Balance -4400 Output: Urine 4400 Other: Voiding Method Indwelling Catheter Indwelling Catheter Indwelling Catheter # Bowel Movements 1 1 ABP, PAP, CO, CI - Last Documented Arterial Blood Pressure 148/54 - Exam GENERAL EXAM: Arousable, 74-year-old white male, on 6 L of oxygen with a pulse ox of 99% comfortable in no apparent distress. HEAD: Normocephalic/atraumatic. EYES: Normal reaction of pupils, equal size. Conjunctiva pink, sclera white. NOSE: Clear with pink turbinates. THROAT: No erythema or exudates. NECK: No masses, no JVD, no thyroid enlargement, no adenopathy. CHEST: No chest wall deformity. Symmetrical expansion. LUNGS: Equal air entry with few scattered rhonchi, crackles in posterior bases, right greater than left. CVS: Regular rate and rhythm, normal S1 and S2, no gallops, no murmurs, no rubs ABDOMEN: Soft, nontender. No hepatosplenomegaly, normal bowel sounds, no guarding or rigidity. EXTREMITIES: No clubbing, no cyanosis, 2+ pulses and upper and lower extre mities. Tenderness in the right hip, with 1+ lower extremity edema. Missing first and second digits of the left hand MUSCULOSKELETAL: Muscle strength and tone normal. SPINE: No scoliosis or deformity SKIN: No rashes CENTRAL NERVOUS SYSTEM: Somnolent. But responsive No focal deficits, tone is normal in all 4 extremities. - Labs CBC & Chem 7: 03/06/20 07:35 03/06/20 07:35 Labs: Abnormal Lab Results - Last 24 Hours (Table) 03/05/20 03/05/20 03/05/20 Range/Units 12:00 16:54 21:21 RBC (4.30-5.90) m/uL Hgb (13.0-17.5) gm/dL Hct (39.0-53.0) % MCH (25.0-35.0) pg MCHC (31.0-37.0) g/dL RDW (11.5-15.5) % Lymphocytes # (1.0-4.8) k/uL D-Dimer (<0.60) mg/L FEU Potassium (3.5-5.1) mmol/L Carbon Dioxide (22-30) mmol/L BUN (9-20) mg/dL Creatinine (0.66-1.25) mg/dL Glucose (74-99) mg/dL POC Glucose (mg/dL) 123 H 201 H 126 H (75-99) mg/dL Calcium (8.4-10.2) mg/dL Creatine Kinase (55-170) U/L C-Reactive Protein (<10.0) mg/L Total Protein (6.3-8.2) g/dL Albumin (3.5-5.0) g/dL 03/06/20 03/06/20 03/06/20 Range/Units 07:35 07:35 07:35 RBC 3.34 L (4.30-5.90) m/uL Hgb 7.9 L (13.0-17.5) gm/dL Hct 27.4 L (39.0-53.0) % MCH 23.6 L (25.0-35.0) pg MCHC 28.8 L (31.0-37.0) g/dL RDW 18.0 H (11.5-15.5) % Lymphocytes # 0.6 L (1.0-4.8) k/uL D-Dimer 7.58 H (<0.60) mg/L FEU Potassium 3.3 L (3.5-5.1) mmol/L Carbon Dioxide 35 H (22-30) mmol/L BUN 39 H (9-20) mg/dL Creatinine 2.08 H (0.66-1.25) mg/dL Glucose 72 L (74-99) mg/dL POC Glucose (mg/dL) (75-99) mg/dL Calcium 8.0 L (8.4-10.2) mg/dL Creatine Kinase 25 L (55-170) U/L C-Reactive Protein 49.4 H (<10.0) mg/L Total Protein 4.8 L (6.3-8.2) g/dL Albumin 2.2 L (3.5-5.0) g/dL Microbiology - Last 24 Hours (Table) 03/05/20 09:55 Gram Stain - Preliminary Pleural Fluid Body Fluid Culture - Preliminary 03/05/20 09:55 Acid Fast Bacilli Smear - Final Pleural Fluid Acid Fast Bacilli Culture - Preliminary 03/05/20 09:55 Anaerobic Culture - Preliminary Pleural Fluid 03/05/20 09:55 Fungal Culture - Preliminary Pleural Fluid Assessment and Plan Assessment: 1 Acute trauma including a nondisplaced right femoral neck fracture status post fall. Right-sided chest wall pain. Skin abrasions. Laceration to the right e ar requiring sutures. Status post repair of the right femoral neck fracture 2 Acute CoVID 19 infection 3 Acute hypoxic respiratory failure secondary to an acute exacerbation of chronic diastolic congestive heart failure with preserved left ventricular systolic function. Developed a large right pleural effusion. Status post thoracentesis on 03/05/2020. 1.5 L of fluid removed. Fluid analysis t ransudative, cytology pending. 4 Severe pulmonary hypertension with an RVSP of 67 mmHg. 5 Acute anemia with hemoglobin is 6.9, received 1 unit packed red blood cells, current hemoglobin 7.9 6 Acute on chronic renal failure with current creatinine 2.08 7 Troponin leak 8 Elevated LFTs 9 History of dementia 10 Diabetes mellitus, type II 11 Hyperlipidemia 12 Hypertension 13 Chronic obstructive pulmonary disease, oxygen dependent 14 History of previous tobacco dependence of 42 years at 1 pack per day. Quit approximately 3 years ago 15 Poor overall functional performance based on the above-mentioned multiple comorbidities Plan: The patient was seen and evaluated by Dr. Gonzales Chest x-ray and labs reviewed Continue the current treatment plan Increase his activity as tolerated Titrate down the FiO2 as tolerated We'll continue to follow and make further recommendations based on his clinical status I, the cosigning physician, performed a history & physical examination of the patient. Lungs sounds with few scattered rhonchi, crackles in the posterior bases, right greater than left. Maintaining good O2 saturations in the 90s on 4 L/m per nasal cannula. I discussed the assessment and plan of care with my nurse practitioner, Eveline Munguia. I attest to the above consultation as dictated by her.
[2020-03-06 12:06] LABS: Glucose,Whole Blood 127 mg/dL (75-99)
[2020-03-06 16:37] LABS: % Iron Saturation 7.8 (15.00-50.00)
[2020-03-06 16:46] LABS: Ferritin 150.6 ng/mL (22.0-322.0)
[2020-03-06 17:12] LABS: Glucose,Whole Blood 146 mg/dL (75-99)
[2020-03-06] MEDS: ATORVASTATIN 20 MG TAB PO SCH (20:06)
[2020-03-06 20:45] LABS: Glucose,Whole Blood 181 mg/dL (75-99)
[2020-03-06] MEDS: INSULIN DETEMIR (LEVEMIR) 100 UNIT/ML SYR SQ SCH (20:54)
[2020-03-07] MEDS: hydrALAZINE HCL 20 MG/ML 1 ML VIAL IVP PRN (03:09)
[2020-03-07] MEDS: HYDROcodone/APAP 5-325MG 1 EACH TAB PO PRN ×3 (03:09→20:51)
[2020-03-07] MEDS: LACTATED RINGERS 1,000 ML IV SCH (05:37)
[2020-03-07 07:09] LABS: Glucose,Whole Blood 65 mg/dL (75-99)
[2020-03-07] MEDS: INSULIN ASPART (NovoLOG) 100 UNIT/ML VIAL SQ SCH ×4 (07:20→20:46)
[2020-03-07 07:32] LABS: Glucose,Whole Blood 92 mg/dL (75-99)
[2020-03-07] MEDS: PIPERACILLIN-TAZOBACTAM 3.375 GM in SODIUM CHLORIDE 0.9% 100 ML IVPB SCH (07:41)
[2020-03-07] MEDS: LIDOCAINE 5% PATCH TOPICAL SCH (07:41)
[2020-03-07] MEDS: ALPRAZolam 0.25 MG TAB PO PRN ×2 (07:42→16:18)
[2020-03-07] MEDS: NITROGLYCERIN OINT 1 INCH/GM PACKET TOPICAL SCH ×3 (07:42→23:42)
[2020-03-07] MEDS: PANTOPRAZOLE 40 MG/10 ML VIAL IVP SCH (07:42)
[2020-03-07] MEDS: buPROPion XL 150 MG TAB.ER.24H PO SCH (07:42)
[2020-03-07] MEDS: TAMSULOSIN 0.4 MG CAP.ER.24H PO SCH (07:42)
[2020-03-07] MEDS: FUROSEMIDE 10 MG/ML 4 ML VIAL IV SCH (07:42)
[2020-03-07] MEDS: LINAGLIPTIN 5 MG TABLET PO SCH (07:43)
[2020-03-07] MEDS: ESCITALOPRAM 10 MG TAB PO SCH (07:43)
[2020-03-07] MEDS: METOPROLOL TARTRATE 50 MG TAB PO SCH ×2 (07:43→20:51)
[2020-03-07 08:09] LABS: Anisocytosis Slight; Basophils # (A) 0.1 k/uL (0-0.2); Basophils % (A) 1 %; Eosinophils # (A) 0.3 k/uL (0-0.7); Eosinophils % (A) 3 %; HCT 30.9 % (39.0-53.0); HGB 8.6 gm/dL (13.0-17.5); Hypochromasia Marked; Lymphocytes % (A) 10 %; MCH 22.9 pg (25.0-35.0); MCHC 27.9 g/dL (31.0-37.0); Mean Platelet Volume 9.2; Microcytosis Slight; Monocytes # (A) 0.7 k/uL (0-1.0); Monocytes % (A) 6 %; Neutrophils # (A) 8.4 k/uL (1.3-7.7); Neutrophils % (A) 79 %; Platelet Count 260 k/uL (150-450); Poikilocytosis Slight; RBC 3.77 m/uL (4.30-5.90); RDW 18.2 % (11.5-15.5); WBC 10.5 k/uL (3.8-10.6)
[2020-03-07 08:11] LABS: Albumin 2.6 g/dL (3.5-5.0); C Reactive Protein 51.6 mg/L (<10.0); Calcium 8.2 mg/dL (8.4-10.2); Magnesium 1.9 mg/dL (1.6-2.3); Potassium 3.5 mmol/L (3.5-5.1); Total Bilirubin 0.4 mg/dL (0.2-1.3); Total Protein 5.4 g/dL (6.3-8.2)
--- NOTE | 2020-03-07 08:39 | P.PN ---
Subjective Progress Note Date: 03/07/20 Principal diagnosis: 74-year-old male patient that was at [facility] for the subacute rehab. He suffered a right hip fracture and multiple skin tears and abrasions from a fa ll while taking a shower. Past medical history: hyperlipidemia severe pulmonary hypertension, hypertension, type 2 diabetes, COPD, former smoker, chronic renal insufficiency, recent pneumonia, and early dementia. In October 2019, while at [facility] he scored 11 out of 30 in the [place] cognitive scoring. 03/05/2020 Patient sleeping in bed, but easily arousable, alert and oriented 3 following commands. Ultrasound of the right chest cavity was yesterday found pleural effusion approximately 10 cm. A thoracentesis was completed today by Dr. Gonzales in which 1.5 L of fluid was removed. Fluid was sent for analysis and cytology results pending. He is maintaining oxygen saturations is 100% on 6 L nasal cannula. Blood pressure is 142/63, heart rate is 63, respiratory rate 17, and is afebrile the last temp of 98.4. 03/06/2020 patient sitting up in bed, awake, alert and in no acute distress. Only complaint that he hasn't this time is pain in the right lateral chest wall in soreness in his right hip. Is alert and oriented 3 following commands, on 3 L nasal cannula with a spot check SpO2 of 91%. Today's labs white blood count 8.8, hemoglobin 7.9, hematocrit 27.4, platelet count of 18. Chemistry this morning reveals sodium of 138, potassium 3.3, chloride of 98, nightly of 39, and a creatinine of 2.08 and a glucose level of 72. Last her vital signs temperature is 98.7 oral pulse rate is 68, blood pressure 145/63 oxygen saturation 94% on 4 L at that time. When evaluated in the room had a respiratory rate of 22 on 3 L with a pulse ox of 91%. He is increased to 44 L nasal cannula and will be rechecked with the oxygen saturation goal of 93% or greater. 03/07/2020 The patient is sitting up in bed eating breakfast. He is alert and oriented 3 and appears in no acute distress at this time. He is currently on 4 L nasal cannula satting 98% and appears to be breathing easier today than yesterday. Labs for today WBC 10.5, hemoglobin 8.6, hematocrit 30.9, platelet count of 18.2, sodium 138, potassium 3.5, albumin 33, creatinine 2.0. Glucose on labs was 47 and was treated accordingly, last [id number] glucose 92. Objective - Vital Signs Vital signs: Vital Signs Temp 98.1 F 03/07/20 02:59 Pulse 64 03/07/20 02:59 Resp 20 03/07/20 02:59 BP 168/81 03/07/20 02:59 Pulse Ox 99 03/07/20 02:59 Intake & Output 03/06/20 03/07/20 03/07/20 18:59 06:59 18:59 Output Total 1300 Balance -1300 Weight 74 kg Output: Urine 1300 Other: Voiding Method Indwelling Catheter Indwelling Catheter # Bowel Movements 1 1 ABP, PAP, CO, CI - Last Documented Arterial Blood Pressure 148/54 - Exam GENERAL: 74-year-old man setting up in bed, in no apparent distress HEAD: Atraumatic, normocephalic. EYES: Pupils equal round and reactive to light, extraocular movements intact, sclera anicteric, conjunctiva are normal. ENT:nares patent, oropharynx clear without exudates. Moist mucous membranes. NECK: No masses, no JVD, no thyroid enlargement, no bruit LUNGS: Breath sounds with bilateral few scattered rhoncci and crackles in the bases with right more than left. HEART: Regular rate and rhythm without murmurs, rubs or gallops.S1S2 Normal ABDOMEN: Soft, nontender, normoactive bowel sounds. No guarding, no rebound. No masses appreciated. EXTREMITIES: no pitting or edema. No clubbing or cyanosis. Left hand with first and second digits missing, noted tenderness to right hip Surgical site. NEUROLOGICAL: No focal deficits, cranial nerves II through XII grossly intact PSYCH: Alert and oriented 3,. SKIN: Warm, dry, no rashes, right ear laceration/scabbed, bilateral forearm skin tears\abrasions - Labs CBC & Chem 7: 03/07/20 06:48 03/07/20 06:48 Labs: Abnormal Lab Results - Last 24 Hours (Table) 03/06/20 03/06/20 03/06/20 Range/Units 07:35 12:05 17:11 RBC (4.30-5.90) m/uL Hgb (13.0-17.5) gm/dL Hct (39.0-53.0) % MCH (25.0-35.0) pg MCHC (31.0-37.0) g/dL RDW (11.5-15.5) % Neutrophils # (1.3-7.7) k/uL D-Dimer (<0.60) mg/L FEU Chloride (98-107) mmol/L Carbon Dioxide (22-30) mmol/L BUN (9-20) mg/dL Creatinine (0.66-1.25) mg/dL Glucose (74-99) mg/dL POC Glucose (mg/dL) 127 H 146 H (75-99) mg/dL Calcium (8.4-10.2) mg/dL Iron 17 L (65-175) ug/dL TIBC 218 L (228-460) ug/dL % Saturation 7.80 L (15.00-50.00) Creatine Kinase (55-170) U/L C-Reactive Protein (<10.0) mg/L Total Protein (6.3-8.2) g/dL Albumin (3.5-5.0) g/dL 03/06/20 03/07/20 03/07/20 Range/Units 20:44 06:48 06:48 RBC 3.77 L (4.30-5.90) m/uL Hgb 8.6 L (13.0-17.5) gm/dL Hct 30.9 L (39.0-53.0) % MCH 22.9 L (25.0-35.0) pg MCHC 27.9 L (31.0-37.0) g/dL RDW 18.2 H (11.5-15.5) % Neutrophils # 8.4 H (1.3-7.7) k/uL D-Dimer 8.26 H (<0.60) mg/L FEU Chloride (98-107) mmol/L Carbon Dioxide (22-30) mmol/L BUN (9-20) mg/dL Creatinine (0.66-1.25) mg/dL Glucose (74-99) mg/dL POC Glucose (mg/dL) 181 H (75-99) mg/dL Calcium (8.4-10.2) mg/dL Iron (65-175) ug/dL TIBC (228-460) ug/dL % Saturation (15.00-50.00) Creatine Kinase (55-170) U/L C-Reactive Protein (<10.0) mg/L Total Protein (6.3-8.2) g/dL Albumin (3.5-5.0) g/dL 03/07/20 03/07/20 Range/Units 06:48 07:07 RBC (4.30-5.90) m/uL Hgb (13.0-17.5) gm/dL Hct (39.0-53.0) % MCH (25.0-35.0) pg MCHC (31.0-37.0) g/dL RDW (11.5-15.5) % Neutrophils # (1.3-7.7) k/uL D-Dimer (<0.60) mg/L FEU Chloride 97 L (98-107) mmol/L Carbon Dioxide 36 H (22-30) mmol/L BUN 33 H (9-20) mg/dL Creatinine 2.00 H (0.66-1.25) mg/dL Glucose 47 L* (74-99) mg/dL POC Glucose (mg/dL) 65 L (75-99) mg/dL Calcium 8.2 L (8.4-10.2) mg/dL Iron (65-175) ug/dL TIBC (228-460) ug/dL % Saturation (15.00-50.00) Creatine Kinase 24 L (55-170) U/L C-Reactive Protein 51.6 H (<10.0) mg/L Total Protein 5.4 L (6.3-8.2) g/dL Albumin 2.6 L (3.5-5.0) g/dL Microbiology - Last 24 Hours (Table) 03/05/20 09:55 Gram Stain - Preliminary Pleural Fluid Body Fluid Culture - Preliminary Assessment and Plan (1) COVID-19 Current Visit: Yes Status: Acute Code(s): U07.1 - COVID-19 SNOMED Code(s): 719872157 (2) Closed right hip fracture Current Visit: Yes Status: Acute Code(s): S72.001A - FRACTURE OF UNSP PART OF NECK OF RIGHT FEMUR, INIT SNOMED Code(s): 002524601 (3) Fall Current Visit: Yes Status: Acute Code(s): W19.XXXA - UNSPECIFIED FALL, INITIAL ENCOUNTER SNOMED Code(s): 4788467 (4) Chronic renal failure Current Visit: Yes Status: Acute Code(s): N18.9 - CHRONIC KIDNEY DISEASE, UNSPECIFIED SNOMED Code(s): 82551583 (5) Cognitive impairment Current Visit: Yes Status: Acute Code(s): R41.89 - OTH SYMPTOMS AND SIGNS W COGNITIVE FUNCTIONS AND AWARENESS SNOMED Code(s): 511837391 (6) Diabetes mellitus Current Visit: No Status: Acute Code(s): E11.9 - TYPE 2 DIABETES MELLITUS WITHOUT COMPLICATIONS SNOMED Code(s): 45281414 (7) Elevated troponin I level Current Visit: Yes Status: Acute Code(s): R79.89 - OTHER SPECIFIED ABNORMAL FINDINGS OF BLOOD CHEMISTRY SNOMED Code(s): 852516585 (8) Hyperlipidemia Current Visit: No Status: Acute Code(s): E78.5 - HYPERLIPIDEMIA, UNSPECIFIED SNOMED Code(s): 64011536 (9) Hypertension Current Visit: No Status: Acute Code(s): I10 - ESSENTIAL (PRIMARY) HYPERTENSION SNOMED Code(s): 08416608 (10) Respiratory distress Current Visit: Yes Status: Acute Code(s): R06.03 - ACUTE RESPIRATORY DISTRESS SNOMED Code(s): 367967280 Plan: 1. Continue to monitor renal function 2. Continue to monitor vital signs and oxygenation 3. Continue current medication regime 4. Pain management and anticoagulation as per orthopedic surgery. 5. Diuretics as per nephrology. 6. Continue to follow pulmonary recommendations 7. Increase activity as tolerated 8. Utilize incentive spirometry 10 times an hour while awake 9. We will continue to follow closely Time with Patient: Greater than 30
[2020-03-07] MEDS: ALBUTEROL HFA INHALER INHALATION SCH ×4 (08:54→20:59)
[2020-03-07] MEDS: TIOTROPIUM 18 MCG/PUFF INHALER INHALATION SCH (08:55)
[2020-03-07] MEDS ORDERED: POTASSIUM CHLORIDE ER 20 MEQ TAB.ER PO STA (10:10)
--- NOTE | 2020-03-07 10:10 | P.PN ---
Subjective Patient is seen in follow-up for acute kidney injury on chronic kidney disease. Renal function stable. Good urine output. No chest pain. Oral intake fair. Feels tired. Otherwise no active complaints. Vital signs are stable. General: The patient appeared well nourished and normally developed. HEENT: Head exam is unremarkable. Neck is without jugular venous distension. LUNGS: Breath sounds decreased. HEART: Rate and Rhythm are regular. ABDOMEN: Abdominal exam reveals normal bowel sounds. Non-tender and non- distended. EXTREMITITES: 1+ edema. Objective - Vital Signs Vital signs: Vital Signs Temp 98 F 03/07/20 07:00 Pulse 67 03/07/20 07:00 Resp 18 03/07/20 07:00 BP 175/76 03/07/20 07:00 Pulse Ox 98 03/07/20 07:00 Intake & Output 03/06/20 03/07/20 03/07/20 18:59 06:59 18:59 Intake Total 296 Output Total 1300 Balance -1300 296 Weight 74 kg Intake: Oral 296 Output: Urine 1300 Other: Voiding Method Indwelling Catheter Indwelling Catheter Indwelling Catheter # Bowel Movements 1 1 ABP, PAP, CO, CI - Last Documented Arterial Blood Pressure 148/54 - Labs CBC & Chem 7: 03/07/20 06:48 03/07/20 06:48 Labs: Abnormal Lab Results - Last 24 Hours (Table) 03/06/20 03/06/20 03/06/20 Range/Units 07:35 12:05 17:11 RBC (4.30-5.90) m/uL Hgb (13.0-17.5) gm/dL Hct (39.0-53.0) % MCH (25.0-35.0) pg MCHC (31.0-37.0) g/dL RDW (11.5-15.5) % Neutrophils # (1.3-7.7) k/uL D-Dimer (<0.60) mg/L FEU Chloride (98-107) mmol/L Carbon Dioxide (22-30) mmol/L BUN (9-20) mg/dL Creatinine (0.66-1.25) mg/dL Glucose (74-99) mg/dL POC Glucose (mg/dL) 127 H 146 H (75-99) mg/dL Calcium (8.4-10.2) mg/dL Iron 17 L (65-175) ug/dL TIBC 218 L (228-460) ug/dL % Saturation 7.80 L (15.00-50.00) Creatine Kinase (55-170) U/L C-Reactive Protein (<10.0) mg/L Total Protein (6.3-8.2) g/dL Albumin (3.5-5.0) g/dL 03/06/20 03/07/20 03/07/20 Range/Units 20:44 06:48 06:48 RBC 3.77 L (4.30-5.90) m/uL Hgb 8.6 L (13.0-17.5) gm/dL Hct 30.9 L (39.0-53.0) % MCH 22.9 L (25.0-35.0) pg MCHC 27.9 L (31.0-37.0) g/dL RDW 18.2 H (11.5-15.5) % Neutrophils # 8.4 H (1.3-7.7) k/uL D-Dimer 8.26 H (<0.60) mg/L FEU Chloride (98-107) mmol/L Carbon Dioxide (22-30) mmol/L BUN (9-20) mg/dL Creatinine (0.66-1.25) mg/dL Glucose (74-99) mg/dL POC Glucose (mg/dL) 181 H (75-99) mg/dL Calcium (8.4-10.2) mg/dL Iron (65-175) ug/dL TIBC (228-460) ug/dL % Saturation (15.00-50.00) Creatine Kinase (55-170) U/L C-Reactive Protein (<10.0) mg/L Total Protein (6.3-8.2) g/dL Albumin (3.5-5.0) g/dL 03/07/20 03/07/20 Range/Units 06:48 07:07 RBC (4.30-5.90) m/uL Hgb (13.0-17.5) gm/dL Hct (39.0-53.0) % MCH (25.0-35.0) pg MCHC (31.0-37.0) g/dL RDW (11.5-15.5) % Neutrophils # (1.3-7.7) k/uL D-Dimer (<0.60) mg/L FEU Chloride 97 L (98-107) mmol/L Carbon Dioxide 36 H (22-30) mmol/L BUN 33 H (9-20) mg/dL Creatinine 2.00 H (0.66-1.25) mg/dL Glucose 47 L* (74-99) mg/dL POC Glucose (mg/dL) 65 L (75-99) mg/dL Calcium 8.2 L (8.4-10.2) mg/dL Iron (65-175) ug/dL TIBC (228-460) ug/dL % Saturation (15.00-50.00) Creatine Kinase 24 L (55-170) U/L C-Reactive Protein 51.6 H (<10.0) mg/L Total Protein 5.4 L (6.3-8.2) g/dL Albumin 2.6 L (3.5-5.0) g/dL Microbiology - Last 24 Hours (Table) 03/05/20 09:55 Gram Stain - Preliminary Pleural Fluid Body Fluid Culture - Preliminary Assessment and Plan Plan: Assessment: 1. Acute kidney injury secondary to ATN secondary to cardiorenal syndrome and additional component of covid-19 infection and acute blood loss anemia. Creatinine peaked at 3.86 this admission. GFR now back to baseline. UA benign. Right kidney small in size but no evidence of hydronephrosis. 2. Chronic kidney disease stage III secondary to nephrosclerosis with baseline creatinine in the range of 1.6-2. 3. Acute blood loss anemia scheduled for blood transfusion on February 15. Iron deficiency noted. 4. Status post fall with right femoral neck fracture. Status post surgical intervention. 5. Covid 19 pneumonia. Improved. 6. Insulin-dependent diabetes mellitus. 7. Volume overload. Better with diuresis. 8. Acute on chronic diastolic CHF with moderate mitral regurgitation, moderate to severe tricuspid regurgitation. 9. Severe pulmonary hypertension. 10. Hypokalemia secondary to diuresis. Better. Plan: Maintain Lasix 40 mg IV once daily. Avoid nephrotoxins. Replace potassium. 40 mg once today. Continue to monitor renal function and urine output. IV iron 3 doses. First dose today.
[2020-03-07] MEDS: SODIUM FERRIC GLUCONAT-SUCROSE 125 MG in SODIUM CHLORIDE 0.9% 100 ML IVPB SCH (11:03)
--- NOTE | 2020-03-07 11:34 | P.PN ---
Subjective Progress Note Date: 03/07/20 Principal diagnosis: Fall, nondisplaced right femoral neck fracture, acute on chronic hypoxic respiratory failure related to exacerbation of CHF The patient is seen today 03/05/2020 in follow-up on the regular medical floor. He is awake and alert in no acute distress. He is maintaining O2 saturations in the high 90s on 6 L high flow nasal cannula. He's been afebrile. Hemod ynamically stable. He was found to have a significant 10 cm right-sided pleural effusion. He did undergo a thoracentesis today with Dr. Gonzales and 1.5 L of fluid was removed. Fluid analysis and cytology are pending. Follow-up chest x- ray showed no pneumothorax. There was significant improvement in the effusion. The patient is seen today 03/16/2020 in follow-up on the regular medical floor. He is currently sitting up in bed. Awake and alert in no acute distress. Breathing easier today compared to yesterday. He is status post thoracentesis on the right chest. Today's chest x-ray continues to show bilateral patchy airspace disease. Improvement in the right pleural effusion. He is maintaining good O2 saturations in the 90s on 4 L high flow nasal cannula. Afebrile. Pleural fluid cultures are pending. White count 8.8. Hemoglobin 7.9. D-dimer 7.58. Sodium 138. Potassium 3.3. Creatinine 2.08. LDH 475. C-reactive protein 49. He remains on Zosyn, bronchodilators, IV diuretics. The patient is seen today 03/07/2020 in follow-up on the regular medical floor. He remains awake and alert in no acute distress. Currently resting in bed. He denies any worsening shortness of breath, cough or congestion. He is maintaining O2 saturations in the high 90s on 4 L/m per nasal cannula. He's been afebrile. Pleural fluid cultures reveal no growth. White count 10.5. Hemoglobin 8.6. D-dimer 8.26. LDH 603. Creatinine kinase 24. C-reactive protein 51.6. Creatinine 2.00. He remains on bronchodilators and IV diuretics. Objective - Vital Signs Vital signs: Vital Signs Temp 98 F 03/07/20 07:00 Pulse 67 03/07/20 07:00 Resp 18 03/07/20 07:00 BP 175/76 03/07/20 07:00 Pulse Ox 98 03/07/20 07:00 Intake & Output 03/06/20 03/07/20 03/07/20 18:59 06:59 18:59 Intake Total 296 Output Total 1300 Balance -1300 296 Weight 74 kg Intake: Oral 296 Output: Urine 1300 Other: Voiding Method Indwelling Catheter Indwelling Catheter Indwelling Catheter # Bowel Movements 1 1 ABP, PAP, CO, CI - Last Documented Arterial Blood Pressure 148/54 - Exam GENERAL EXAM: Arousable, 74-year-old white male, on 4 L of oxygen with a pulse ox of 98% comfortable in no apparent distress. HEAD: Normocephalic/atraumatic. EYES: Normal reaction of pupils, equal size. Conjunctiva pink, sclera white. NOSE: Clear with pink turbinates. THROAT: No erythema or exudates. NECK: No masses, no JVD, no thyroid enlargement, no adenopathy. CHEST: No chest wall deformity. Symmetrical expansion. LUNGS: Equal air entry with few scattered rhonchi, crackles in posterior bases, right greater than left. CVS: Regular rate and rhythm, normal S1 and S2, no gallops, no murmurs, no rubs ABDOMEN: Soft, nontender. No hepatosplenomegaly, normal bowel sounds, no guarding or rigidity. EXTREMITIES: No clubbing, no cyanosis, 2+ pulses and upper and lower extremities. Tenderness in the right hip, with 1+ lower extremity edema. Missing first and second digits of the left hand MUSCULOSKELETAL: Muscle strength and tone normal. SPINE: No scoliosis or deformity SKIN: No rashes CENTRAL NERVOUS SYSTEM: Somnolent. But responsive No focal deficits, tone is normal in all 4 extremities. - Labs CBC & Chem 7: 03/07/20 06:48 03/07/20 06:48 Labs: Abnormal Lab Results - Last 24 Hours (Table) 03/06/20 03/06/20 03/06/20 Range/Units 07:35 12:05 17:11 RBC (4.30-5.90) m/uL Hgb (13.0-17.5) gm/dL Hct (39.0-53.0) % MCH (25.0-35.0) pg MCHC (31.0-37.0) g/dL RDW (11.5-15.5) % Neutrophils # (1.3-7.7) k/uL D-Dimer (<0.60) mg/L FEU Chloride (98-107) mmol/L Carbon Dioxide (22-30) mmol/L BUN (9-20) mg/dL Creatinine (0.66-1.25) mg/dL Glucose (74-99) mg/dL POC Glucose (mg/dL) 127 H 146 H (75-99) mg/dL Calcium (8.4-10.2) mg/dL Iron 17 L (65-175) ug/dL TIBC 218 L (228-460) ug/dL % Saturation 7.80 L (15.00-50.00) Creatine Kinase (55-170) U/L C-Reactive Protein (<10.0) mg/L Total Protein (6.3-8.2) g/dL Albumin (3.5-5.0) g/dL 03/06/20 03/07/20 03/07/20 Range/Units 20:44 06:48 06:48 RBC 3.77 L (4.30-5.90) m/uL Hgb 8.6 L (13.0-17.5) gm/dL Hct 30.9 L (39.0-53.0) % MCH 22.9 L (25.0-35.0) pg MCHC 27.9 L (31.0-37.0) g/dL RDW 18.2 H (11.5-15.5) % Neutrophils # 8.4 H (1.3-7.7) k/uL D-Dimer 8.26 H (<0.60) mg/L FEU Chloride (98-107) mmol/L Carbon Dioxide (22-30) mmol/L BUN (9-20) mg/dL Creatinine (0.66-1.25) mg/dL Glucose (74-99) mg/dL POC Glucose (mg/dL) 181 H (75-99) mg/dL Calcium (8.4-10.2) mg/dL Iron (65-175) ug/dL TIBC (228-460) ug/dL % Saturation (15.00-50.00) Creatine Kinase (55-170) U/L C-Reactive Protein (<10.0) mg/L Total Protein (6.3-8.2) g/dL Albumin (3.5-5.0) g/dL 03/07/20 03/07/20 Range/Units 06:48 07:07 RBC (4.30-5.90) m/uL Hgb (13.0-17.5) gm/dL Hct (39.0-53.0) % MCH (25.0-35.0) pg MCHC (31.0-37.0) g/dL RDW (11.5-15.5) % Neutrophils # (1.3-7.7) k/uL D-Dimer (<0.60) mg/L FEU Chloride 97 L (98-107) mmol/L Carbon Dioxide 36 H (22-30) mmol/L BUN 33 H (9-20) mg/dL Creatinine 2.00 H (0.66-1.25) mg/dL Glucose 47 L* (74-99) mg/dL POC Glucose (mg/dL) 65 L (75-99) mg/dL Calcium 8.2 L (8.4-10.2) mg/dL Iron (65-175) ug/dL TIBC (228-460) ug/dL % Saturation (15.00-50.00) Creatine Kinase 24 L (55-170) U/L C-Reactive Protein 51.6 H (<10.0) mg/L Total Protein 5.4 L (6.3-8.2) g/dL Albumin 2.6 L (3.5-5.0) g/dL Microbiology - Last 24 Hours (Table) 03/05/20 09:55 Gram Stain - Preliminary Pleural Fluid Body Fluid Culture - Preliminary Assessment and Plan Assessment: 1 Acute trauma including a nondisplaced right femoral neck fracture status post fall. Right-sided chest wall pain. Skin abrasions. Laceration to the right ear requiring sutures. Status post repair of the right femoral neck fracture 2 Acute CoVID 19 infection 3 Acute hypoxic respiratory failure secondary to an acute exacerbation of chronic diastolic congestive heart failure with preserved left ventricular systolic function. Developed a large right pleural effusion. Status post thoracentesis on 03/05/2020. 1.5 L of fluid removed. Fluid analysis mclaughlin sudative, cytology pending. 4 Severe pulmonary hypertension with an RVSP of 67 mmHg. 5 Acute anemia with hemoglobin is 6.9, received 1 unit packed red blood cells, current hemoglobin 7.9 6 Acute on chronic renal failure with current creatinine 2.08 7 Troponin leak 8 Elevated LFTs 9 History of dementia 10 Diabetes mellitus, type II 11 Hyperlipidemia 12 Hypertension 13 Chronic obstructive pulmonary disease, oxygen dependent 14 History of previous tobacco dependence of 42 years at 1 pack per day. Quit approximately 3 years ago 15 Poor overall functional performance based on the above-mentioned multiple comorbidities Plan: The patient was seen and evaluated by Dr. Gonzales Labs reviewed Increase his activity as tolerated Titrate down the FiO2 as tolerated Plan is for return to [facility] for continued subacute rehabilitation We'll continue to follow and make further recommendations based on his clinical status I, the cosigning physician, performed a history & physical examination of the patient. Lungs sounds with few scattered rhonchi, crackles in the posterior bases, right greater than left. Maintaining good O2 saturations in the 90s on 4 L/m per nasal cannula. I discussed the assessment and plan of care with my nurse practitioner, Eveline Munguia. I attest to the above consultation as dictated by her.
[2020-03-07 11:58] LABS: Glucose,Whole Blood 173 mg/dL (75-99)
[2020-03-07] MEDS ORDERED: BENZOCAINE/MENTHOL LOZENG 1 EACH LOZENGE MUCOUS MEM PRN (16:50)
[2020-03-07 17:05] LABS: Glucose,Whole Blood 166 mg/dL (75-99)
[2020-03-07 20:31] LABS: Glucose,Whole Blood 188 mg/dL (75-99)
[2020-03-07] MEDS: ATORVASTATIN 20 MG TAB PO SCH (20:51)
[2020-03-07] MEDS: APIXABAN 5 MG TAB PO SCH (20:51)
[2020-03-07] MEDS: INSULIN DETEMIR (LEVEMIR) 100 UNIT/ML SYR SQ SCH (20:51)
[2020-03-08] MEDS: HYDROcodone/APAP 5-325MG 1 EACH TAB PO PRN ×2 (03:00→22:49)
[2020-03-08] MEDS: LACTATED RINGERS 1,000 ML IV SCH (05:38)
[2020-03-08 06:51] LABS: Glucose,Whole Blood 58 mg/dL (75-99)
[2020-03-08] MEDS: LINAGLIPTIN 5 MG TABLET PO SCH (07:09)
[2020-03-08 07:16] LABS: Glucose,Whole Blood 93 mg/dL (75-99)
[2020-03-08 07:36] LABS: Calcium 8.1 mg/dL (8.4-10.2); Potassium 3.7 mmol/L (3.5-5.1)
[2020-03-08] MEDS: INSULIN ASPART (NovoLOG) 100 UNIT/ML VIAL SQ SCH ×4 (08:31→20:36)
[2020-03-08] MEDS: PANTOPRAZOLE 40 MG/10 ML VIAL IVP SCH (08:38)
[2020-03-08] MEDS: SODIUM FERRIC GLUCONAT-SUCROSE 125 MG in SODIUM CHLORIDE 0.9% 100 ML IVPB SCH (08:38)
[2020-03-08] MEDS: FUROSEMIDE 10 MG/ML 4 ML VIAL IV SCH (08:38)
[2020-03-08] MEDS: METOPROLOL TARTRATE 50 MG TAB PO SCH ×2 (08:38→20:36)
[2020-03-08] MEDS: TAMSULOSIN 0.4 MG CAP.ER.24H PO SCH (08:38)
[2020-03-08] MEDS: ALPRAZolam 0.25 MG TAB PO PRN ×2 (08:38→17:14)
[2020-03-08] MEDS: NITROGLYCERIN OINT 1 INCH/GM PACKET TOPICAL SCH ×3 (08:38→23:25)
[2020-03-08] MEDS: buPROPion XL 150 MG TAB.ER.24H PO SCH (08:38)
[2020-03-08] MEDS: ESCITALOPRAM 10 MG TAB PO SCH (08:38)
[2020-03-08] MEDS: APIXABAN 5 MG TAB PO SCH ×2 (08:38→20:36)
[2020-03-08] MEDS: LIDOCAINE 5% PATCH TOPICAL SCH ×2 (08:39→08:57)
[2020-03-08] MEDS: ALBUTEROL HFA INHALER INHALATION SCH ×4 (09:02→20:14)
--- NOTE | 2020-03-08 09:45 | P.PN ---
Subjective Patient is seen in follow-up for acute kidney injury on chronic kidney disease. Renal function is improved. Good urine output. No chest pain. Oral intake fair. Feels tired. Gets short of breath with exertion. Vital signs are stable. General: The patient appeared well nourished and normally developed. HEENT: Head exam is unremarkable. Neck is without jugular venous distension. LUNGS: Breath sounds decreased. HEART: Rate and Rhythm are regular. ABDOMEN: Abdominal exam reveals normal bowel sounds. Non-tender and non- distended. EXTREMITITES: 1+ edema. Objective - Vital Signs Vital signs: Vital Signs Temp 98.0 F 03/08/20 07:00 Pulse 67 03/08/20 07:00 Resp 17 03/08/20 07:00 BP 176/84 03/08/20 07:00 Pulse Ox 99 03/08/20 07:00 Intake & Output 03/07/20 03/08/20 03/08/20 18:59 06:59 18:59 Intake Total 636 Balance 636 Weight 72 kg Intake: Oral 636 Other: Voiding Method Indwelling Catheter Indwelling Catheter ABP, PAP, CO, CI - Last Documented Arterial Blood Pressure 148/54 - Labs CBC & Chem 7: 03/07/20 06:48 03/08/20 06:56 Labs: Abnormal Lab Results - Last 24 Hours (Table) 03/07/20 03/07/20 03/07/20 Range/Units 11:57 17:04 20:28 Carbon Dioxide (22-30) mmol/L BUN (9-20) mg/dL Creatinine (0.66-1.25) mg/dL Glucose (74-99) mg/dL POC Glucose (mg/dL) 173 H 166 H 188 H (75-99) mg/dL Calcium (8.4-10.2) mg/dL 03/08/20 03/08/20 Range/Units 06:49 06:56 Carbon Dioxide 34 H (22-30) mmol/L BUN 31 H (9-20) mg/dL Creatinine 1.78 H (0.66-1.25) mg/dL Glucose 52 L (74-99) mg/dL POC Glucose (mg/dL) 58 L (75-99) mg/dL Calcium 8.1 L (8.4-10.2) mg/dL Microbiology - Last 24 Hours (Table) 03/05/20 09:55 Anaerobic Culture - Preliminary Pleural Fluid 03/05/20 09:55 Gram Stain - Preliminary Pleural Fluid Body Fluid Culture - Preliminary Assessment and Plan Plan: Assessment: 1. Acute kidney injury secondary to ATN secondary to cardiorenal syndrome and additional component of covid-19 infection and acute blood loss anemia. Creatinine peaked at 3.86 this admission. GFR now back to baseline. UA benign. Right kidney small in size but no evidence of hydronephrosis. 2. Chronic kidney disease stage III secondary to nephrosclerosis with baseline creatinine in the range of 1.6-2. 3. Acute blood loss anemia scheduled for blood transfusion on February 15. Iron deficiency noted. 4. Status post fall with right femoral neck fracture. Status post surgical intervention. 5. Covid 19 pneumonia. Improved. 6. Insulin-dependent diabetes mellitus. 7. Volume overload. Better with diuresis. 8. Acute on chronic diastolic CHF with moderate mitral regurgitation, moderate to severe tricuspid regurgitation. 9. Severe pulmonary hypertension. 10. Hypokalemia secondary to diuresis. Better. Plan: Maintain Lasix 40 mg IV once daily. Avoid nephrotoxins. Continue to monitor renal function and urine output. IV iron 3 doses. Second dose today.
[2020-03-08 09:58] LABS: Ferritin 143.8 ng/mL (22.0-322.0)
--- NOTE | 2020-03-08 11:24 | P.PN ---
Subjective Progress Note Date: 03/08/20 Principal diagnosis: Fall, nondisplaced right femoral neck fracture, acute on chronic hypoxic respiratory failure related to exacerbation of CHF The patient is seen today 03/05/2020 in follow-up on the regular medical floor. He is awake and alert in no acute distress. He is maintaining O2 saturations in the high 90s on 6 L high flow nasal cannula. He's been afebrile. Hemod ynamically stable. He was found to have a significant 10 cm right-sided pleural effusion. He did undergo a thoracentesis today with Dr. Gonzales and 1.5 L of fluid was removed. Fluid analysis and cytology are pending. Follow-up chest x- ray showed no pneumothorax. There was significant improvement in the effusion. The patient is seen today 03/16/2020 in follow-up on the regular medical floor. He is currently sitting up in bed. Awake and alert in no acute distress. Breathing easier today compared to yesterday. He is status post thoracentesis on the right chest. Today's chest x-ray continues to show bilateral patchy airspace disease. Improvement in the right pleural effusion. He is maintaining good O2 saturations in the 90s on 4 L high flow nasal cannula. Afebrile. Pleural fluid cultures are pending. White count 8.8. Hemoglobin 7.9. D-dimer 7.58. Sodium 138. Potassium 3.3. Creatinine 2.08. LDH 475. C-reactive protein 49. He remains on Zosyn, bronchodilators, IV diuretics. The patient is seen today 03/07/2020 in follow-up on the regular medical floor. He remains awake and alert in no acute distress. Currently resting in bed. He denies any worsening shortness of breath, cough or congestion. He is maintaining O2 saturations in the high 90s on 4 L/m per nasal cannula. He's been afebrile. Pleural fluid cultures reveal no growth. White count 10.5. Hemoglobin 8.6. D-dimer 8.26. LDH 603. Creatinine kinase 24. C-reactive protein 51.6. Creatinine 2.00. He remains on bronchodilators and IV diuretics. The patient is seen today 03/08/2020 in follow-up on the regular medical floor. He is currently up ambulating in the room with assistance. Awake and alert in no acute distress. Maintaining good O2 saturations in the high 90s on 5 L/m per nasal cannula. He is afebrile. Pleural fluid cultures reveal no growth. Sodium 139. Potassium 3.7. Creatinine 1.78. Objective - Vital Signs Vital signs: Vital Signs Temp 97.6 F 03/08/20 11:00 Pulse 68 03/08/20 11:00 Resp 16 03/08/20 11:00 BP 164/80 03/08/20 11:00 Pulse Ox 98 03/08/20 11:00 Intake & Output 03/07/20 03/08/20 03/08/20 18:59 06:59 18:59 Intake Total 636 Balance 636 Weight 72 kg Intake: Oral 636 Other: Voiding Method Indwelling Catheter Indwelling Catheter Indwelling Catheter ABP, PAP, CO, CI - Last Documented Arterial Blood Pressure 148/54 - Exam GENERAL EXAM: Arousable, 74-year-old white male, on 5 L of oxygen with a pulse ox of 98% comfortable in no apparent distress. HEAD: Normocephalic/atraumatic. EYES: Normal reaction of pupils, equal size. Conjunctiva pink, sclera white. NOSE: Clear with pink turbinates. THROAT: No erythema or exudates. NECK: No masses, no JVD, no thyroid enlargement, no adenopathy. CHEST: No chest wall deformity. Symmetrical expansion. LUNGS: Equal air entry with few scattered rhonchi, crackles in posterior bases, right greater than left. CVS: Regular rate and rhythm, normal S1 and S2, no gallops, no murmurs, no rubs ABDOMEN: Soft, nontender. No hepatosplenomegaly, normal bowel sounds, no guardi ng or rigidity. EXTREMITIES: No clubbing, no cyanosis, 2+ pulses and upper and lower extremities. Tenderness in the right hip, with 1+ lower extremity edema. Missing first and second digits of the left hand MUSCULOSKELETAL: Muscle strength and tone normal. SPINE: No scoliosis or deformity SKIN: No rashes CENTRAL NERVOUS SYSTEM: Somnolent. But responsive No focal deficits, tone is normal in all 4 extremities. - Labs CBC & Chem 7: 03/07/20 06:48 03/08/20 06:56 Labs: Abnormal Lab Results - Last 24 Hours (Table) 03/07/20 03/07/20 03/07/20 Range/Units 11:57 17:04 20:28 Carbon Dioxide (22-30) mmol/L BUN (9-20) mg/dL Creatinine (0.66-1.25) mg/dL Glucose (74-99) mg/dL POC Glucose (mg/dL) 173 H 166 H 188 H (75-99) mg/dL Calcium (8.4-10.2) mg/dL 03/08/20 03/08/20 Range/Units 06:49 06:56 Carbon Dioxide 34 H (22-30) mmol/L BUN 31 H (9-20) mg/dL Creatinine 1.78 H (0.66-1.25) mg/dL Glucose 52 L (74-99) mg/dL POC Glucose (mg/dL) 58 L (75-99) mg/dL Calcium 8.1 L (8.4-10.2) mg/dL Microbiology - Last 24 Hours (Table) 03/05/20 09:55 Gram Stain - Preliminary Pleural Fluid Body Fluid Culture - Preliminary 03/05/20 09:55 Anaerobic Culture - Preliminary Pleural Fluid Assessment and Plan Assessment: 1 Acute trauma including a nondisplaced right femoral neck fracture status post fall. Right-sided chest wall pain. Skin abrasions. Laceration to the right ear requiring sutures. Status post repair of the right femoral neck fracture 2 Acute CoVID 19 infection 3 Acute hypoxic respiratory failure secondary to an acute exacerbation of chronic diastolic congestive heart failure with preserved left ventricular systolic function. Developed a large right pleural effusion. Status post thoracentesis on 03/05/2020. 1.5 L of fluid removed. Fluid analysis transudative, cytology pending. 4 Severe pulmonary hypertension with an RVSP of 67 mmHg. 5 Acute anemia with hemoglobin is 6.9, received 1 unit packed red blood cells, current hemoglobin 7.9 6 Acute on chronic renal failure with current creatinine 2.08 7 Troponin leak 8 Elevated LFTs 9 History of dementia 10 Diabetes mellitus, type II 11 Hyperlipidemia 12 Hypertension 13 Chronic obstructive pulmonary disease, oxygen dependent 14 History of previous tobacco dependence of 42 years at 1 pack per day. Quit approximately 3 years ago 15 Poor overall functional performance based on the above-mentioned multiple comorbidities Plan: The patient was seen and evaluated by Dr. Gay He is stable from the pulmonary critical care standpoint Increase his activity as tolerated Titrate down the FiO2 as tolerated Plan is for return to [facility] for continued subacute rehabilitation We'll continue to follow and make further recommendations based on his clinical status I, the cosigning physician, performed a history & physical examination of the patient. Lungs sounds with few scattered rhonchi, crackles in the posterior bases, right greater than left. Maintaining good O2 saturations in the 90s on 5 L/m per nasal cannula. I discussed the assessment and plan of care with my nurse practitioner, Eveline Munguia. I attest to the above consultation as dictated by her.
[2020-03-08 11:41] LABS: Glucose,Whole Blood 127 mg/dL (75-99)
[2020-03-08] MEDS: TIOTROPIUM 18 MCG/PUFF INHALER INHALATION SCH (12:05)
--- NOTE | 2020-03-08 12:55 | P.PN ---
Subjective Progress Note Date: 03/08/20 74-year-old male resident currently at [facility] subacute re[facility] ,known to the practice with history of severe pulmonary hypertension, hypertension hyperlipidemia diabetes mellitus type 2 former smoker anxiety COPD stage III chronic renal insufficiency, recent pneumonia, early dementia ([place] cog nitive scoring at [facility] 11 out of 30), admitted with right hip fracture status post fall in the shower, sustaining multiple skin tears/abrasions to right ear, right chest, bilateral forearms, riight hip. Right ear required sutures. Head and C-spine reported no spine fracture spine fracture, no acute intracranial abnormality-unchanged from prior exam. Pelvis x-ray reported nondisplaced right femoral neck fracture. EKG reportedly accelerated junctional rhythm with nonspecific ST-T wave abnormalities. Troponins 0.047, 0.054. BNP 25,000 Tested positive for coronavirus. Chest x-ray reporting CHF with pleural effusions, pulmonary edema worse than last exam .Maintaining O2 sats in the low 90s on 4 L nasal cannula. Afebrile, WBC 10, hemoglobin 6.9, platelets 174. sodium 138 potassium 4.2 bicarb 14, creatinine 3.51 (baseline around 1.9).glucose 146, mildly elevated LFTs .Evaluated by orthopedic surgery, discussing surgical repair pending pulmonary, cardiology, medical clearance. 02/25/2020 Diuresing on Lasix IV push, with 24-hour I&O reflecting overnigiht urine output of 600 MLS. Renal function worsening, creatinine up to 3.85 . O2 requirement increased up to 6 L nasal cannula, maintaining O2 sats in the 90s. Reports nonproductive cough. Chest x-ray reporting improving bilateral infiltrates greater on right . Decreasing edema. complaints of hip pain, receiving Dilaudid. Hemoglobin 8.3 status post 1 unit packed RBCs. [place] with hematuria. Afebrile, WBC increased to 12.9. 02/26/2020 yesterday diuretics decreased, but 24-hour I&O inaccurate. Significant lower extremity edema persists. Chest x-ray reporting worsening, developing CHF exacerbation, small lateral pleural effusions-right greater than left with increasing interstitial edema. Continues on 6 L nasal cannula maintaining O2 sats in the 90s. Remains wheezy but today able to speak in sentences without shortness of breath. Renal function unchanged. Complains of constipation. Reports no bowel movement 2 days. Denies chest pain, palpitations. Complains more of right-sided rib cage pain, hip pain currently controlled. Telemetry sinus rhythm. 02/27/2020 maintained on Lasix IV push daily , 24-hour I&O reflecting a gain of 0.5 kg . Urine output increasing. Creatinine down to 3.39 .chest x-ray reporting worsening multifocal right-sided airspace disease with stable bilateral pleural effusions and mild pulmonary vascular congestion. Continues on 6 L nasal cannula maintaining O2 sats in the 90s.VSS, afebrile. Reports no bowel movement, Dulcolax suppository ordered for after surgery. OR pending. 03/01/2020 postop day #3 status post right in situ screw fixation for nondisplaced right transcervical femoral neck fracture .extubated yesterday to 4 L nasal cannula, maintaining O2 sats in the 90s. Chest x-ray reporting slightly worsening right-sided multifocal consolidations and medial retrocardiac opacity, slightly worsening loculated small right pleural effusion. Significant weakness, weak cough. PT pending. Afebrile, normal WBC. Hemoglobin 7.9. Renal function improving, trending down to 2.33. Blood sugars controlled, tolerating full liquid diet. Pain currently controlled. 03/02/20 postop day #4, hip pain controlled, complains of right-sided rib pain, wearing lidocaine patch on right ribs. Diet intake improving, denies nausea vomiting or diarrhea. Passing flatus, Positive bowel movement .Chest x-ray reporting improved aeration of right upper lobe otherwise unchanged with bilateral airspace disease right greater than left, pleural effusions. Diuresing well on Lasix IV push with 24-hour I&O reflecting a negative fluid balance. Oxygen has been weaned down to 2 L nasal cannula maintaining O2 sats in my 80s to 90s. Continues on Zosyn. Afebrile, normal WBC. Hemoglobin remains at 7.9. Renal function continues to improve trending down to 2.03. 03/03/2020 maintained on 4 L nasal cannula maintaining O2 sats in the 90s. Continues diuresing well on Lasix IV push with 24-hour I&O reflecting a negative fluid balance. Creatinine remains at 2.05. Hypoglycemic earlier this morning, currently blood sugars controlled. Maintained on empiric Zosyn, afebrile. Pain controlled. Denies chest pain, palpitations. Complaining of diarrhea, staff reports two episodes-we'll DC Colace and Senokot S. 03/04/2020 Colace and Senokot discontinued yesterday, bowel movements 2 today, more formed. Negative for C. difficile colitis. Oxygen requirements worsening, now up to 6 L nasal cannula maintaining O2 sats in the 90s. Follow-up chest x- ray reporting increasing right basilar effusion, bibasilar atelectasis or infiltrate. Chest Ultrasound ordered. Pain controlled. Diuresing well on Lasix IV push with 24-hour I&O continuing to reflecting a negative fluid balance. Creatinine 2. 03/08/2020 Pleural cytology preliminary negative, final results pending, maintaining O2 sats in the 90s on 5 L nasal cannula. Maintained on daily Lasix IV push as per nephrology with 24-hour I&O reflecting a negative fluid balance. Creatinine down to 1.78. Receiving second dose of IV Iron. Afebrile. Objective - Vital Signs Vital signs: Vital Signs Temp 97.6 F 03/08/20 11:00 Pulse 68 03/08/20 11:00 Resp 16 03/08/20 11:00 BP 164/80 03/08/20 11:00 Pulse Ox 98 03/08/20 11:00 Intake & Output 03/07/20 03/08/20 03/08/20 18:59 06:59 18:59 Intake Total 636 Balance 636 Weight 72 kg Intake: Oral 636 Other: Voiding Method Indwelling Catheter Indwelling Catheter Indwelling Catheter ABP, PAP, CO, CI - Last Documented Arterial Blood Pressure 148/54 - Exam General: Sitting up in bed, no acute distress HEENT: [PERRL. EOMI. No pharyngeal erythema or exudate. Oral mucosa moist. Neck: [No adenopathy. No JVD Cardiac: [Heart regular in rate and rhythm. No S3. No S4. No clicks, rubs. No murmur. Lungs: Bilateral bases diminished, occasional scattered coarse rhonchi, fine basilar crackles, or wheezing. Abdomen: [Soft, mild mid epigastric tenderness ,No mass. No organomegaly. Positive Bowel sounds present. Extremes: Right hip tender, sensation grossly intact, decreasing edema bilateral lower extremities, no clubbing, no cyanosis, positive pulses Skin: [Right ear scabbed,bilateral forearms with skin tears/abrasions .left hand with first and second digit missing .No rash.] Neurologic: [No lateralizing deficits. CN II - XII grossly intact.] - Labs CBC & Chem 7: 03/07/20 06:48 03/08/20 06:56 Labs: Abnormal Lab Results - Last 24 Hours (Table) 03/07/20 03/07/20 03/08/20 Range/Units 17:04 20:28 06:49 Carbon Dioxide (22-30) mmol/L BUN (9-20) mg/dL Creatinine (0.66-1.25) mg/dL Glucose (74-99) mg/dL POC Glucose (mg/dL) 166 H 188 H 58 L (75-99) mg/dL Calcium (8.4-10.2) mg/dL 03/08/20 03/08/20 Range/Units 06:56 11:39 Carbon Dioxide 34 H (22-30) mmol/L BUN 31 H (9-20) mg/dL Creatinine 1.78 H (0.66-1.25) mg/dL Glucose 52 L (74-99) mg/dL POC Glucose (mg/dL) 127 H (75-99) mg/dL Calcium 8.1 L (8.4-10.2) mg/dL Microbiology - Last 24 Hours (Table) 03/05/20 09:55 Gram Stain - Preliminary Pleural Fluid Body Fluid Culture - Preliminary 03/05/20 09:55 Anaerobic Culture - Preliminary Pleural Fluid Assessment and Plan Assessment: (1) status post right in situ screw fixation for nondisplaced right transcervical femoral neck fracture , status post fall (2) acute hypoxic respiratory failure secondary to acute on chronic CHF exacerbation, diastolic dysfunction, EF 50-55% (3) severe pulmonary hypertension (4)acute COVID- 19 infection , possible acute COVID-19 Pneumonia. Repeat coronavirus reports detected. (5) Acute on chronic renal failure Current Visit: No Status: Acute Code(s): N17.9 - ACUTE KIDNEY FAILURE, UNSPECIFIED SNOMED Code(s): 29935870 (6) Acute anemia, status post 1 unit packed RBCs (7) elevated troponin, cardiology following (8) Diabetes mellitus Current Visit: No Status: Acute Code(s): E11.9 - TYPE 2 DIABETES MELLITUS WITHOUT COMPLICATIONS SNOMED Code(s): 76027596 (9)Elevated LFTs , mild (10) Hypertension Current Visit: No Status: Acute Code(s): I10 - ESSENTIAL (PRIMARY) HYPERTENSION SNOMED Code(s): 74048005 (11) chronic hypoxic respiratory failure secondary to COPD , wears 2Lnc at home (12)Cognitive impairment, recent ventral cognitive assessment [facility] reported 11 out of 30. Current Visit: Yes Status: Acute Code(s): R41.89 - OTH SYMPTOMS AND SIGNS W COGNITIVE FUNCTIONS AND AWARENESS SNOMED Code(s): 987054286 (13) prior nicotine dependence (14) troponin leak, acute coronary syndrome ruled out as per cardiology, possibly related to CHF and renal failure (15) large right pleural effusion, status post thoracentesis with 1.5 L removed. transudative,cytology pending Plan: Continue on current medication regime ,monitoring and symptomatic treatment. Discharge planning in progress for [facility] tomorrow pending nephrology clearance/DC recommendations. Cleared by pulmonary .Pain management/anticoagulation as per orthopedic surgery. Maintain aggressive pulmonary toileting with incentive spirometer reinforced. The impression and plan of care has been dictated as directed. : I performed a history and examination of this patient, discussed the same with the dictator. I agree with the dictator's note ,documented as a scribe. Any additional findings or plans will be noted.
[2020-03-08 13:42] VITALS: BMI 29.9
[2020-03-08 16:43] LABS: Glucose,Whole Blood 329 mg/dL (75-99)
[2020-03-08 20:31] LABS: Glucose,Whole Blood 160 mg/dL (75-99)
[2020-03-08] MEDS: INSULIN DETEMIR (LEVEMIR) 100 UNIT/ML SYR SQ SCH (20:33)
[2020-03-08] MEDS: ATORVASTATIN 20 MG TAB PO SCH (20:36)
[2020-03-09 02:15] LABS: Glucose,Whole Blood 192 mg/dL (75-99)
[2020-03-09 04:03] VITALS: TEMP 98
[2020-03-09] MEDS: LACTATED RINGERS 1,000 ML IV SCH (05:50)
[2020-03-09] MEDS: HYDROcodone/APAP 5-325MG 1 EACH TAB PO PRN (05:54)
[2020-03-09 06:49] LABS: Glucose,Whole Blood 207 mg/dL (75-99)
[2020-03-09] MEDS: ALBUTEROL HFA INHALER INHALATION SCH ×2 (07:13→10:59)
[2020-03-09] MEDS: TIOTROPIUM 18 MCG/PUFF INHALER INHALATION SCH (07:14)
[2020-03-09] MEDS: FUROSEMIDE 10 MG/ML 4 ML VIAL IV SCH (07:16)
[2020-03-09] MEDS: APIXABAN 5 MG TAB PO SCH (07:16)
[2020-03-09] MEDS: INSULIN ASPART (NovoLOG) 100 UNIT/ML VIAL SQ SCH ×2 (07:16→12:28)
[2020-03-09] MEDS: TAMSULOSIN 0.4 MG CAP.ER.24H PO SCH (07:16)
[2020-03-09] MEDS: PANTOPRAZOLE 40 MG/10 ML VIAL IVP SCH (07:16)
[2020-03-09] MEDS: buPROPion XL 150 MG TAB.ER.24H PO SCH (07:17)
[2020-03-09] MEDS: METOPROLOL TARTRATE 50 MG TAB PO SCH (07:17)
[2020-03-09] MEDS: LINAGLIPTIN 5 MG TABLET PO SCH (07:18)
[2020-03-09] MEDS: ESCITALOPRAM 10 MG TAB PO SCH (07:18)
[2020-03-09] MEDS: NITROGLYCERIN OINT 1 INCH/GM PACKET TOPICAL SCH (07:19)
[2020-03-09] MEDS: LIDOCAINE 5% PATCH TOPICAL SCH (07:19)
[2020-03-09 07:40] LABS: Magnesium 1.7 mg/dL (1.6-2.3); Potassium 3.6 mmol/L (3.5-5.1)
[2020-03-09] MEDS: SODIUM FERRIC GLUCONAT-SUCROSE 125 MG in SODIUM CHLORIDE 0.9% 100 ML IVPB SCH (09:53)
[2020-03-09] MEDS ORDERED: ISOSORBIDE MONONITRATE ER 30 MG TAB.ER.24H PO SCH (10:15)
[2020-03-09] MEDS ORDERED: POTASSIUM CHLORIDE ER 20 MEQ TAB.ER PO STA (10:36)
--- NOTE | 2020-03-09 10:36 | P.PN ---
Subjective Patient is seen in follow-up for acute kidney injury on chronic kidney disease. Renal function is improved. Good urine output. No chest pain. Oral intake fair. Gets short of breath with exertion. No changes overnight. Vital signs are stable. General: The patient appeared well nourished and normally developed. HEENT: Head exam is unremarkable. Neck is without jugular venous distension. LUNGS: Breath sounds decreased. HEART: Rate and Rhythm are regular. ABDOMEN: Abdominal exam reveals normal bowel sounds. Non-tender and non- distended. EXTREMITITES: 1+ edema. Objective - Vital Signs Vital signs: Vital Signs Temp 98.0 F 03/09/20 07:00 Pulse 73 03/09/20 07:00 Resp 17 03/09/20 07:00 BP 161/86 03/09/20 07:00 Pulse Ox 98 03/09/20 07:00 Intake & Output 03/08/20 03/09/20 03/09/20 18:59 06:59 18:59 Intake Total 180 180 Output Total 1000 Balance 180 -1000 180 Weight 72 kg 74 kg Intake: Oral 180 180 Output: Urine 1000 Other: Voiding Method Indwelling Catheter Indwelling Catheter Indwelling Catheter # Bowel Movements 1 ABP, PAP, CO, CI - Last Documented Arterial Blood Pressure 148/54 - Labs CBC & Chem 7: 03/07/20 06:48 03/09/20 06:36 Labs: Abnormal Lab Results - Last 24 Hours (Table) 03/08/20 03/08/20 03/08/20 Range/Units 11:39 16:41 20:27 Carbon Dioxide (22-30) mmol/L BUN (9-20) mg/dL Creatinine (0.66-1.25) mg/dL Glucose (74-99) mg/dL POC Glucose (mg/dL) 127 H 329 H 160 H (75-99) mg/dL Calcium (8.4-10.2) mg/dL 03/09/20 03/09/20 03/09/20 Range/Units 02:14 06:36 06:48 Carbon Dioxide 33 H (22-30) mmol/L BUN 29 H (9-20) mg/dL Creatinine 1.68 H (0.66-1.25) mg/dL Glucose 186 H (74-99) mg/dL POC Glucose (mg/dL) 192 H 207 H (75-99) mg/dL Calcium 8.0 L (8.4-10.2) mg/dL Microbiology - Last 24 Hours (Table) 03/05/20 09:55 Gram Stain - Preliminary Pleural Fluid Body Fluid Culture - Preliminary Assessment and Plan Plan: Assessment: 1. Acute kidney injury secondary to ATN secondary to cardiorenal syndrome and additional component of covid-19 infection and acute blood loss anemia. Creatinine peaked at 3.86 this admission. GFR now back to baseline. UA benign. Right kidney small in size but no evidence of hydronephrosis. 2. Chronic kidney disease stage III secondary to nephrosclerosis with baseline creatinine in the range of 1.6-2. 3. Acute blood loss anemia scheduled for blood transfusion on February 15. Iron deficiency noted. 4. Status post fall with right femoral neck fracture. Status post surgical intervention. 5. Covid 19 pneumonia. Improved. 6. Insulin-dependent diabetes mellitus. 7. Volume overload. Better with diuresis. 8. Acute on chronic diastolic CHF with moderate mitral regurgitation, moderate to severe tricuspid regurgitation. 9. Severe pulmonary hypertension. 10. Hypokalemia secondary to diuresis. Plan: Maintain Lasix 40 mg IV once daily - change to oral upon discharge. Add daily potassium and magnesium supplementation. Avoid nephrotoxins. Continue to monitor renal function and urine output. IV iron 3 doses. Third dose today. Anticipate discharge soon. Follow up outpatient in 2 weeks.
[2020-03-09] MEDS ORDERED: MAGNESIUM OXIDE 400 MG TAB PO SCH (10:45)
[2020-03-09 10:52] VITALS: BP 122/69; PULSE 70; RESP 15
[2020-03-09 11:35] LABS: Glucose,Whole Blood 195 mg/dL (75-99)
--- NOTE | 2020-03-09 12:26 | P.DS ---
Providers Date of admission: 02/23/20 22:06 Expected date of discharge: 03/09/20 Attending physician: Hood Akhtar Consults: 02/24/20 08:21 Consult Physician Routine Consulting Provider: Hood Akhtar Consult Reason/Comments: Medical management and preop eval Do you want consulting provider notified?: Yes 02/24/20 10:06 Consult Physician Routine Consulting Provider: Isaura Ramos Consult Reason/Comments: pulomonary clearance Do you want consulting provider notified?: Already Contacted 02/24/20 10:09 Consult Physician Routine Consulting Provider: Anais Amaya Consult Reason/Comments: cardiac clearance Do you want consulting provider notified?: Yes Consult Physician Routine Consulting Provider: Jose Juan Bajwa Consult Reason/Comments: elevated creatine and BUN Do you want consulting provider notified?: Yes Primary care physician: Hood Akhtar [facility] Course: Final Diagnoses: (1) status post right in situ screw fixation for nondisplaced right transcervical femoral neck fracture , status post fall (2) acute hypoxic respiratory failure secondary to acute on chronic CHF exacerbation, diastolic dysfunction, EF 50-55% (3) severe pulmonary hypertension (4)acute COVID- 19 infection , possible acute COVID-19 Pneumonia. Repeat coronavirus reports detected. (5) Acute on chronic renal failure Current Visit: No Status: Acute Code(s): N17.9 - ACUTE KIDNEY FAILURE, UNSPECIFIED SNOMED Code(s): 14457289 (6) Acute anemia, status post 1 unit packed RBCs (7) elevated troponin, cardiology following (8) Diabetes mellitus Current Visit: No Status: Acute Code(s): E11.9 - TYPE 2 DIABETES MELLITUS WITHOUT COMPLICATIONS SNOMED Code(s): 28453197 (9)Elevated LFTs , mild (10) Hypertension Current Visit: No Status: Acute Code(s): I10 - ESSENTIAL (PRIMARY) HYPERTENSION SNOMED Code(s): 35757802 (11) chronic hypoxic respiratory failure secondary to COPD , wears 2Lnc at home (12)Cognitive impairment, recent [facility] cognitive assessment [facility] reported 11 out of 30. Current Visit: Yes Status: Acute Code(s): R41.89 - OTH SYMPTOMS AND SIGNS W COGNITIVE FUNCTIONS AND AWARENESS SNOMED Code(s): 259428579 (13) prior nicotine dependence (14) troponin leak, acute coronary syndrome ruled out as per cardiology, possibly related to CHF and renal failure (15) large right pleural effusion, status post thoracentesis with 1.5 L removed. transudative,cytology reporting Reactive mesothelial cells, macrophages and mixed inflammatory cells. No cytologically malignant cells identified. Hospital course:74-year-old male resident currently at [facility] rehab ,known to the practice with history of severe pulmonary hypertension, hypertension hyperlipidemia diabetes mellitus type 2 former smoker anxiety COPD stage III chronic renal insufficiency, recent pneumonia, early dementia (Montral cognitive scoring at [facility] 11 out of 30), admitted with right hip fracture status post fall in the shower, sustaining multiple skin tears/abrasions to right ear, right chest, bilateral forearms, riight hip. Right ear required sutures. Head and C-spine reported no spine fracture spine fracture, no acute intracranial abnormality-unchanged from prior exam. Pelvis x-ray reported nondisplaced right femoral neck fracture. EKG reportedly accelerated junctional rhythm with nonspecific ST-T wave abnormalities. Troponins 0.047, 0.054. BNP 25,000 Tested positive for coronavirus. Chest x- ray reporting CHF with pleural effusions, pulmonary edema worse than last exam .Maintaining O2 sats in the low 90s on 4 L nasal cannula. Afebrile, WBC 10, hemoglobin 6.9, platelets 174. sodium 138 potassium 4.2 bicarb 14, creatinine 3.51 (baseline around 1.9).glucose 146, mildly elevated LFTs .Evaluated by orthopedic surgery, discussing surgical repair pending pulmonary, cardiology, medical clearance. 02/25/2020 Diuresing on Lasix IV push, with 24-hour I&O reflecting overnigiht urine output of 600 MLS. Renal function worsening, creatinine up to 3.85 . O2 requirement increased up to 6 L nasal cannula, maintaining O2 sats in the 90s. Reports nonproductive cough. Chest x-ray reporting improving bilateral infiltrates greater on right . Decreasing edema. complaints of hip pain, receiving Dilaudid. Hemoglobin 8.3 status post 1 unit packed RBCs. Orellana with hematuria. Afebrile, WBC increased to 12.9. 02/26/2020 yesterday diuretics decreased, but 24-hour I&O inaccurate. Significant lower extremity edema persists. Chest x-ray reporting worsening, developing CHF exacerbation, small lateral pleural effusions-right greater than left with increasing interstitial edema. Continues on 6 L nasal cannula maintaining O2 sats in the 90s. Remains wheezy but today able to speak in sentences without shortness of breath. Renal function unchanged. Complains of constipation. Reports no bowel movement 2 days. Denies chest pain, palpitations. Complains more of right-sided rib cage pain, hip pain currently controlled. Telemetry sinus rhythm. 02/27/2020 maintained on Lasix IV push daily , 24-hour I&O reflecting a gain of 0.5 kg . Urine output increasing. Creatinine down to 3.39 .chest x-ray reporting worsening multifocal right-sided airspace disease with stable bilateral pleural effusions and mild pulmonary vascular congestion. Continues on 6 L nasal cannula maintaining O2 sats in the 90s.VSS, afebrile. Reports no bowel movement, Dulcolax suppository ordered for after surgery. OR pending. 03/01/2020 postop day #3 status post right in situ screw fixation for nondisplaced right transcervical femoral neck fracture .extubated yesterday to 4 L nasal cannula, maintaining O2 sats in the 90s. Chest x-ray reporting slightly worsening right-sided multifocal consolidations and medial retrocardiac opacity, slightly worsening loculated small right pleural effusion. Significant weakness, weak cough. PT pending. Afebrile, normal WBC. Hemoglobin 7.9. Renal function improving, trending down to 2.33. Blood sugars controlled, tolerating full liquid diet. Pain currently controlled. 03/02/20 postop day #4, hip pain controlled, complains of right-sided rib pain, wearing lidocaine patch on right ribs. Diet intake improving, denies nausea vomiting or diarrhea. Passing flatus, Positive bowel movement .Chest x-ray reporting improved aeration of right upper lobe otherwise unchanged with bilateral airspace disease right greater than left, pleural effusions. Diuresing well on Lasix IV push with 24-hour I&O reflecting a negative fluid balance. Oxygen has been weaned down to 2 L nasal cannula maintaining O2 sats in my 80s to 90s. Continues on Zosyn. Afebrile, normal WBC. Hemoglobin remains at 7.9. Renal function continues to improve trending down to 2.03. 03/03/2020 maintained on 4 L nasal cannula maintaining O2 sats in the 90s. Continues diuresing well on Lasix IV push with 24-hour I&O reflecting a negative fluid balance. Creatinine remains at 2.05. Hypoglycemic earlier this morning, currently blood sugars controlled. Maintained on empiric Zosyn, afebrile. Pain controlled. Denies chest pain, palpitations. Complaining of diarrhea, staff reports two episodes-we'll DC Colace and Senokot S. 03/04/2020 Colace and Senokot discontinued yesterday, bowel movements 2 today, more formed. Negative for C. difficile colitis. Oxygen requirements worsening, now up to 6 L nasal cannula maintaining O2 sats in the 90s. Follow-up chest x- ray reporting increasing right basilar effusion, bibasilar atelectasis or infiltrate. Chest Ultrasound ordered. Pain controlled. Diuresing well on Lasix IV push with 24-hour I&O continuing to reflecting a negative fluid balance. Creatinine 2. 03/08/2020 Pleural cytology preliminary negative, final results pending, maintaining O2 sats in the 90s on 5 L nasal cannula. Maintained on daily Lasix IV push as per nephrology with 24-hour I&O reflecting a negative fluid balance. Creatinine down to 1.78. Receiving second dose of IV Iron. Afebrile. Pleural cytology reporting Reactive mesothelial cells, macrophages and mixed inflammatory cells. No cytologically malignant cells identified. Significant clinical improvement. Creatinine down to 1.68. Cleared by all consults for discharge. Patient is being discharged to [facility] subacute rehab. in a stable condition with guarded prognosis. The impression and plan of care has been dictated as directed. : I performed a history and examination of this patient, discussed the same with the dictator. I agree with the dictator's note ,documented as a scribe. Any additional findings or plans will be noted. Patient Condition at Discharge: Stable Plan - Discharge Summary Discharge Rx Participant: No New Discharge Prescriptions: New Benzocaine/Menthol Lozeng [Cepacol lozenge] 1 each MUCOUS MEM Q4HR PRN lozenge PRN Reason: Sore Throat Apixaban [Eliquis] 5 mg PO BID tab INSULIN LISPRO (HumaLOG) [humaLOG] 0 unit SQ ACHS #1 vial Potassium Chloride ER [K-Dur 10] 10 meq PO DAILY tab.er.prt Lidocaine 5% Patch [Lidoderm 5% Patch] 1 patch TOPICAL DAILY patch Magnesium Oxide [Mag-Ox] 400 mg PO DAILY tab Albuterol Inhaler [Ventolin Hfa Inhaler] 2 puff INHALATION RT-QID puff Albuterol Inhaler [Ventolin Hfa Inhaler] 2 puff INHALATION RT-QID PRN puff PRN Reason: Shortness Of Breath Or Wheezing Continue Tamsulosin [Flomax] 0.8 mg PO DAILY@0900 hydrALAZINE HCL [Apresoline] 25 mg PO TID@0600,1400,2100 buPROPion XL [Wellbutrin XL] 150 mg PO DAILY@0900 Linagliptin [Tradjenta] 5 mg PO DAILY@0900 Sennosides-Docusate Sodium [Senokot-S] 1 tab PO DAILY PRN PRN Reason: Constipation Acetaminophen Tab [Tylenol] 650 mg PO Q4H PRN PRN Reason: Pain Calcium Carbonate [Tums] 1,000 mg PO Q6H PRN PRN Reason: upset stomach Metoprolol Tartrate [Lopressor] 50 mg PO BID@0900,2100 Omeprazole 20 mg PO DAILY@0600 Atorvastatin [Lipitor] 20 mg PO HS@2100 Escitalopram [Lexapro] 10 mg PO DAILY@0900 Isosorbide Mononitrate ER [Imdur] 30 mg PO DAILY@0900 Umeclidinium Custar [Incruse Ellipta] 1 puff INHALATION RT-DAILY@0900 Insulin Glargine,Hum.rec.anlog [Basaglar Kwikpen U-100] 10 unit SQ HS@2100 Aspirin 81 mg PO DAILY@0900 Visine Tears 1 drop BOTH EYES DAILY PRN PRN Reason: dry eyes ALPRAZolam [Xanax] 0.25 mg PO DAILY@0800,1700 PRN #6 tab PRN Reason: Anxiety Changed Furosemide [Lasix] 40 mg PO DAILY #0 Discontinued Lisinopril [Prinivil] 10 mg PO DAILY@0900 Loperamide HCl [Loperamide] 2 mg PO DAILY PRN PRN Reason: Diarrhea Potassium Chloride [Klor-Con 20 Packets] 20 meq PO DAILY@0900 Discharge Medication List Tamsulosin [Flomax] 0.8 mg PO DAILY@0900 04/27/14 [History] Linagliptin [Tradjenta] 5 mg PO DAILY@0900 02/26/20 [History] Sennosides-Docusate Sodium [Senokot-S] 1 tab PO DAILY PRN 12/24/19 [History] buPROPion XL [Wellbutrin XL] 150 mg PO DAILY@89912/24/19 [History] hydrALAZINE HCL [Apresoline] 25 mg PO TID@0600,1400,209912/24/19 [History] Acetaminophen Tab [Tylenol] 650 mg PO Q4H PRN 02/23/20 [History] Aspirin 81 mg PO DAILY@89902/23/20 [History] Atorvastatin [Lipitor] 20 mg PO HS@209902/23/20 [History] Calcium Carbonate [Tums] 1,000 mg PO Q6H PRN 02/23/20 [History] Escitalopram [Lexapro] 10 mg PO DAILY@89902/23/20 [History] Insulin Glargine,Hum.rec.anlog [Basaglar Kwikpen U-100] 10 unit SQ HS@209902/23/20 [History] Isosorbide Mononitrate ER [Imdur] 30 mg PO DAILY@89902/23/20 [History] Metoprolol Tartrate [Lopressor] 50 mg PO BID@09,209902/23/20 [History] Omeprazole 20 mg PO DAILY@59902/23/20 [History] Umeclidinium Custar [Incruse Ellipta] 1 puff INHALATION RT-DAILY@89902/23/20 [History] Visine Tears 1 drop BOTH EYES DAILY PRN 02/23/20 [History] ALPRAZolam [Xanax] 0.25 mg PO DAILY@0800,1700 PRN #6 tab 03/09/20 [Rx] Albuterol Inhaler [Ventolin Hfa Inhaler] 2 puff INHALATION RT-QID puff 03/09/20 [Rx] Albuterol Inhaler [Ventolin Hfa Inhaler] 2 puff INHALATION RT-QID PRN puff 03/09/20 [Rx] Apixaban [Eliquis] 5 mg PO BID tab 03/09/20 [Rx] Benzocaine/Menthol Lozeng [Cepacol lozenge] 1 each MUCOUS MEM Q4HR PRN lozenge 03/09/20 [Rx] Furosemide [Lasix] 40 mg PO DAILY #0 03/09/20 [Rx] INSULIN LISPRO (HumaLOG) [humaLOG] 0 unit SQ ACHS #1 vial 03/09/20 [Rx] Lidocaine 5% Patch [Lidoderm 5% Patch] 1 patch TOPICAL DAILY patch 03/09/20 [Rx] Magnesium Oxide [Mag-Ox] 400 mg PO DAILY tab 03/09/20 [Rx] Potassium Chloride ER [K-Dur 10] 10 meq PO DAILY tab.er.prt 03/09/20 [Rx] Follow up Appointment(s)/Referral(s): Juan Angel DO [Medical Doctor] - 4 Weeks Hood Akhtar MD [Primary Care Provider] - 3 Days Activity/Diet/Wound Care/Special Instructions: [facility] re[facility] pain management as per orthopedic surgery CBC, BMP in 3 days 1. Toe touch weightbearing only on the right lower extremity 2. Patient may shower without a dressing intact over the right hip 3. [place] at the right hip be removed in 2 weeks and may be removed by nursing at the rehabilitation facility Discharge Disposition: TRANSFER TO SNF/ECF
--- NOTE | 2020-03-09 13:51 | P.PN ---
Subjective Progress Note Date: 03/09/20 Principal diagnosis: Fall, nondisplaced right femoral neck fracture, acute on chronic hypoxic respiratory failure related to exacerbation of CHF The patient is seen today 03/05/2020 in follow-up on the regular medical floor. He is awake and alert in no acute distress. He is maintaining O2 saturations in the high 90s on 6 L high flow nasal cannula. He's been afebrile. Hemod ynamically stable. He was found to have a significant 10 cm right-sided pleural effusion. He did undergo a thoracentesis today with Dr. Gonzales and 1.5 L of fluid was removed. Fluid analysis and cytology are pending. Follow-up chest x- ray showed no pneumothorax. There was significant improvement in the effusion. The patient is seen today 03/16/2020 in follow-up on the regular medical floor. He is currently sitting up in bed. Awake and alert in no acute distress. Breathing easier today compared to yesterday. He is status post thoracentesis on the right chest. Today's chest x-ray continues to show bilateral patchy airspace disease. Improvement in the right pleural effusion. He is maintaining good O2 saturations in the 90s on 4 L high flow nasal cannula. Afebrile. Pleural fluid cultures are pending. White count 8.8. Hemoglobin 7.9. D-dimer 7.58. Sodium 138. Potassium 3.3. Creatinine 2.08. LDH 475. C-reactive protein 49. He remains on Zosyn, bronchodilators, IV diuretics. The patient is seen today 03/07/2020 in follow-up on the regular medical floor. He remains awake and alert in no acute distress. Currently resting in bed. He denies any worsening shortness of breath, cough or congestion. He is maintaining O2 saturations in the high 90s on 4 L/m per nasal cannula. He's been afebrile. Pleural fluid cultures reveal no growth. White count 10.5. Hemoglobin 8.6. D-dimer 8.26. LDH 603. Creatinine kinase 24. C-reactive protein 51.6. Creatinine 2.00. He remains on bronchodilators and IV diuretics. The patient is seen today 03/08/2020 in follow-up on the regular medical floor. He is currently up ambulating in the room with assistance. Awake and alert in no acute distress. Maintaining good O2 saturations in the high 90s on 5 L/m per nasal cannula. He is afebrile. Pleural fluid cultures reveal no growth. Sodium 139. Potassium 3.7. Creatinine 1.78. The patient is seen today 03/09/2020 in follow-up on the regular medical floor. He is currently sitting up in a chair at the bedside. Awake and alert in no acute distress. Currently on 4 L high flow nasal cannula maintaining good O2 saturations in the high 90s. He is afebrile. Hemodynamically stable. Pleural fluid cultures reveal no growth. Sodium 137. Potassium 3.6. Bicarb 33. Creatinine 1.68. Glucose 186. Objective - Vital Signs Vital signs: Vital Signs Temp 98.0 F 03/09/20 10:52 Pulse 70 03/09/20 10:52 Resp 15 03/09/20 10:52 BP 122/69 03/09/20 10:52 Pulse Ox 98 03/09/20 10:52 Intake & Output 03/08/20 03/09/20 03/09/20 18:59 06:59 18:59 Intake Total 180 180 Output Total 1000 Balance 180 -1000 180 Weight 72 kg 74 kg Intake: Oral 180 180 Output: Urine 1000 Other: Voiding Method Indwelling Catheter Indwelling Catheter Indwelling Catheter # Bowel Movements 1 ABP, PAP, CO, CI - Last Documented Arterial Blood Pressure 148/54 - Exam GENERAL EXAM: Awake, alert, 74-year-old male patient, on 4 L of oxygen with a pulse ox of 98% comfortable in no apparent distress. HEAD: Normocephalic/atraumatic. EYES: Normal reaction of pupils, equal size. Conjunctiva pink, sclera white. NOSE: Clear with pink turbinates. THROAT: No erythema or exudates. NECK: No masses, no JVD, no thyroid enlargement, no adenopathy. CHEST: No chest wall deformity. Symmetrical expansion. LUNGS: Equal air entry with few scattered rhonchi, crackles in posterior bases, right greater than left. CVS: Regular rate and rhythm, normal S1 and S2, no gallops, no murmurs, no rubs ABDOMEN: Soft, nontender. No hepatosplenomegaly, normal bowel sounds, no guarding or rigidity. EXTREMITIES: No clubbing, no cyanosis, 2+ pulses and upper and lower extremities. Tenderness in the right hip, with 1+ lower extremity edema. Missing first and second digits of the left hand MUSCULOSKELETAL: Muscle strength and tone normal. SPINE: No scoliosis or deformity SKIN: No rashes CENTRAL NERVOUS SYSTEM: Somnolent. But responsive No focal deficits, tone is normal in all 4 extremities. - Labs CBC & Chem 7: 03/07/20 06:48 03/09/20 06:36 Labs: Abnormal Lab Results - Last 24 Hours (Table) 03/08/20 03/08/20 03/09/20 Range/Units 16:41 20:27 02:14 Carbon Dioxide (22-30) mmol/L BUN (9-20) mg/dL Creatinine (0.66-1.25) mg/dL Glucose (74-99) mg/dL POC Glucose (mg/dL) 329 H 160 H 192 H (75-99) mg/dL Calcium (8.4-10.2) mg/dL 03/09/20 03/09/20 03/09/20 Range/Units 06:36 06:48 11:34 Carbon Dioxide 33 H (22-30) mmol/L BUN 29 H (9-20) mg/dL Creatinine 1.68 H (0.66-1.25) mg/dL Glucose 186 H (74-99) mg/dL POC Glucose (mg/dL) 207 H 195 H (75-99) mg/dL Calcium 8.0 L (8.4-10.2) mg/dL Microbiology - Last 24 Hours (Table) 03/05/20 09:55 Gram Stain - Final Pleural Fluid Body Fluid Culture - Final Assessment and Plan Assessment: 1 Acute trauma including a nondisplaced right femoral neck fracture status post fall. Right-sided chest wall pain. Skin abrasions. Laceration to the right ear requiring sutures. Status post repair of the right femoral neck fracture 2 Acute CoVID 19 infection 3 Acute hypoxic respiratory failure secondary to an acute exacerbation of chronic diastolic congestive heart failure with preserved left ventricular systolic function. Developed a large right pleural effusion. Status post thoracentesis on 03/05/2020. 1.5 L of fluid removed. Fluid analysis transudative, pathology negative for malignancy. 4 Severe pulmonary hypertension with an RVSP of 67 mmHg. 5 Acute anemia with hemoglobin is 6.9, received 1 unit packed red blood cells, current hemoglobin 8.6 6 Acute on chronic renal failure with current creatinine 1.68 7 Troponin leak 8 Elevated LFTs 9 History of dementia 10 Diabetes mellitus, type II 11 Hyperlipidemia 12 Hypertension 13 Chronic obstructive pulmonary disease, oxygen dependent 14 History of previous tobacco dependence of 42 years at 1 pack per day. Quit approximately 3 years ago 15 Poor overall functional performance based on the above-mentioned multiple comorbidities Plan: The patient was seen and evaluated by Dr. Gay He is stable from the pulmonary standpoint Plan is for return to [facility] for continued subacute rehabilitation I, the cosigning physician, performed a history & physical examination of the patient. Lungs sounds with few scattered rhonchi, crackles in the posterior bases, right greater than left. Maintaining good O2 saturations in the 90s on 4 L/m per nasal cannula. I discussed the assessment and plan of care with my nurse practitioner, Eveline Munguia. I attest to the above note as dictated by her.
[2020-03-10] MEDS ORDERED: POTASSIUM CHLORIDE ER 10 MEQ TAB.ER.PRT PO SCH (09:00)
--- NOTE | 2020-03-10 10:44 | CDI ---
Documentation Clarification Form Date: 03/10/20 From: Jordana Allan CCS Phone: If you have a question about this query, please contact Benita Calvin, Vp Clinical at [phone] between 8am and 5pm. Admit Date: 02/23/20 Discharge Date:03/09/20 Patient Name: Bernardo Boston Visit Number: [id number] ATTENTION: The Clinical Documentation Specialists (CDI) and [facility] Coding Staff appreciate your assistance in clarifying documentation. Please respond to the clarification below the line at the bottom and electronically sign. The CDI & [facility] Coding staff will review the response and follow-up if needed. Please note: Queries are made part of the Legal Health Record. If you have any questions, please contact the author of this message via ITS. Dear Dr. Akhtar, Patient presented with troponin of: 0.047 PNs, Discharge Summary document: Troponin leak, acute coronary syndrome ruled out as per cardiology, possibly related to CHF and renal failure Patient history/risk factors: A/C CHF, HTN, CKD, PHTN, COVID, PNA, A/C Resp Failure Clinical indicators: Troponin Leak Troponin: 0.047, 0.054, 0.055 Consult: Onel In your professional opinion, can you please specify the diagnosis, if any, indicated by the above clinical indicators? NSTEMI [place] Type II --->Elevated Troponin Other, please specify Unable to determine MTDD
--- NOTE | 2020-03-10 10:52 | CDI ---
Documentation Clarification Form Date: 03/10/20 From: Jordana Allan CCS Phone: If you have a question about this query, please contact Benita Calvin, Calciner Operator at [phone] between 8am and 5pm. Admit Date: 02/23/20 Discharge Date:03/09/20 Patient Name: Bernardo Boston Visit Number: [id number] ATTENTION: The Clinical Documentation Specialists (CDI) and [facility] Coding Staff appreciate your assistance in clarifying documentation. Please respond to the clarification below the line at the bottom and electronically sign. The CDI & [facility] Coding staff will review the response and follow-up if needed. Please note: Queries are made part of the Legal Health Record. If you have any questions, please contact the author of this message via ITS. Dear Dr. Akhtar, Documentation in the chart included: Laceration to the right ear requiring sutures History/Risk factors: Fall w/ fracture and multiple abrasions Clinical Indicators: Laceration to right ear w/ sutures Treatment: Sutures to right ear In order to capture the severity of condition and correctly code the procedure, please specify the following: Date Procedure was performed- suture or right ear laceration Physician who performed the procedure: Procedure was performed prior to arrival to ED/not done at [place] ____patient was found on exam with sutures in ear, I assume ER did this_ MTDD
--- NOTE | 2020-03-12 18:12 | CDI ---
Documentation Clarification Form Date: 03/12/2020 05:23:53 PM From: Uzma Aviles RN CCDS Admit Date: 02/23/2020 10:06:00 PM Patient Name: Bernardo Boston Visit Number: [id number] Discharge Date: 03/09/2020 02:21:00 PM ATTENTION: The Clinical Documentation Specialists (CDI) and [facility] Coding Staff appreciate your assistance in clarifying documentation. Please respond to the clarification below the line at the bottom and electronically sign. The CDI & [facility] Coding staff will review the response and follow-up if needed. Please note: Queries are made part of the Legal Health Record. If you have any questions, please contact the author of this message via ITS. Dr. Juan Angel, DO Conflicting documentation has been found in the medical record Acute Post-Operative anemia, is documented in Critical Care Management Progress note 03/01 Anemia (likely of chronic disease), is documented in the H&P 02/23 Acute blood Loss Anemia Documented by Nephrology Progress Note 02/25 Patients Admitting Diagnosis: Nondisplaced right transcervical femoral neck fracture Post-Operative Diagnosis: Nondisplaced right transcervical femoral neck fracture. Procedure performed 02/26: In-situ screw fixation of nondisplaced right transcervical femoral neck fracture. History/Risk Factors: 74-year-old male presents to ED after a fall with shortness of breath, weakness, back and hip pain. Patient admitted with COVID 29, acute kidney Injury on chronic, dehydration, acute on chronic diastolic heart failure, DM 2 and chronic respiratory failure. Clinical Indicators: Hgb 02/22: 7.0, 02/23 6.9; 02/24 8.3; 1 9.5; 5/2 8.0; 5/3 8.1; 03/01 7.9; 5 7.9, 03/04 5.9; 03/05 8.4; 03/06 7.9; 03/07; 8.6 Estimated Blood Loss During Surgery 02/26: 10ml Treatment: 02/25: 1unit PRBC, 03/07 Ferric Sodium Gluconate Ivpb Daily In order to accurately reflect this patients severity of illness, please clarify if the Anemia: -is a complication of surgical procedure -is an expected outcome of the surgical procedure -is related to co-morbid condition(s) of chronic anemia -is related to co-morbid condition(s) (please specify) -Other please specify -Unable to determine (Last Revision: November 2019) The patient's anemia is not due to acute blood loss from the fracture or surgery. The fracture was nondisplaced and intra-capsular. This is unlikely to produce a substantial amount of bleeding. The surgery was also minimally invasive (and he was anemia prior to surgery). Therefore, other etiologies for the anemia should be considered first. Anemia of chronic disease/co-morbid conditions is much more likely. MTDD
== END 2020-03-09 14:21 | DRG 480 ==
LOC: EC 18:58 → 4SSUR 22:06 → 2SICU 02-27 17:08 → 4SSUR 03-02 12:14
PROVIDERS: ADMIT Family Medicine; ATTEND Family Medicine
PROC: 0HQ2XZZ Repair Right Ear Skin, External Approach (ICD-10-PCS; 2020-02-23)
PROC: 30233N1 Transfusion of Nonautologous Red Blood Cells into Peripheral Vein, Percutaneous Approach (ICD-10-PCS; 2020-02-24)
PROC: 5A1945Z Respiratory Ventilation, 24-96 Consecutive Hours (ICD-10-PCS; 2020-02-27)
PROC: 0QH634Z Insertion of Internal Fixation Device into Right Upper Femur, Percutaneous Approach (ICD-10-PCS; principal; 2020-02-27 07:30)
PROC: 02HV33Z Insertion of Infusion Device into Superior Vena Cava, Percutaneous Approach (ICD-10-PCS; 2020-02-28)
PROC: 03HY32Z Insertion of Monitoring Device into Upper Artery, Percutaneous Approach (ICD-10-PCS; 2020-02-28)
PROC: 4A133B1 Monitoring of Arterial Pressure, Peripheral, Percutaneous Approach (ICD-10-PCS; 2020-02-28)
PROC: 4A133J1 Monitoring of Arterial Pulse, Peripheral, Percutaneous Approach (ICD-10-PCS; 2020-02-28)
PROC: 0W993ZZ Drainage of Right Pleural Cavity, Percutaneous Approach (ICD-10-PCS; 2020-03-05)
DX: S72.034A Nondisplaced midcervical fracture of right femur, initial encounter for closed fracture (principal); U07.1 COVID-19; N17.0 Acute kidney failure with tubular necrosis; J96.21 Acute and chronic respiratory failure with hypoxia; J96.22 Acute and chronic respiratory failure with hypercapnia; I50.33 Acute on chronic diastolic (congestive) heart failure; J12.89 Other viral pneumonia; J91.8 Pleural effusion in other conditions classified elsewhere; J44.0 Chronic obstructive pulmonary disease with (acute) lower respiratory infection; I13.0 Hypertensive heart and chronic kidney disease with heart failure and stage 1 through stage 4 chronic kidney disease, or unspecified chronic kidney disease; S22.41XA Multiple fractures of ribs, right side, initial encounter for closed fracture; J98.11 Atelectasis; E11.649 Type 2 diabetes mellitus with hypoglycemia without coma; I27.29 Other secondary pulmonary hypertension; D63.1 Anemia in chronic kidney disease; N18.3 Chronic kidney disease, stage 3 (moderate); E11.22 Type 2 diabetes mellitus with diabetic chronic kidney disease; F03.90 Unspecified dementia, unspecified severity, without behavioral disturbance, psychotic disturbance, mood disturbance, and anxiety; Z99.81 Dependence on supplemental oxygen; Z79.4 Long term (current) use of insulin; E78.5 Hyperlipidemia, unspecified; E86.0 Dehydration; N40.0 Benign prostatic hyperplasia without lower urinary tract symptoms; F41.9 Anxiety disorder, unspecified; S01.311A Laceration without foreign body of right ear, initial encounter; R79.89 Other specified abnormal findings of blood chemistry; I08.3 Combined rheumatic disorders of mitral, aortic and tricuspid valves; S20.311A Abrasion of right front wall of thorax, initial encounter; S50.812A Abrasion of left forearm, initial encounter; S50.811A Abrasion of right forearm, initial encounter; R41.89 Other symptoms and signs involving cognitive functions and awareness; F32.9 Major depressive disorder, single episode, unspecified; R31.9 Hematuria, unspecified; K59.00 Constipation, unspecified; E87.6 Hypokalemia; T50.1X5A Adverse effect of loop [high-ceiling] diuretics, initial encounter; R53.81 Other malaise; R19.7 Diarrhea, unspecified; Y92.121 Bathroom in nursing home as the place of occurrence of the external cause; Y93.E1 Activity, personal bathing and showering; W18.2XXA Fall in (into) shower or empty bathtub, initial encounter; Z71.3 Dietary counseling and surveillance; Z79.899 Other long term (current) drug therapy; Z79.82 Long term (current) use of aspirin; Z87.01 Personal history of pneumonia (recurrent); Z89.022 Acquired absence of left finger(s); Z87.891 Personal history of nicotine dependence; Z88.5 Allergy status to narcotic agent; Z88.8 Allergy status to other drugs, medicaments and biological substances; Z83.3 Family history of diabetes mellitus; Z80.9 Family history of malignant neoplasm, unspecified; Z84.1 Family history of disorders of kidney and ureter
CPT/HCPCS: 36415; 36600; 70450; 71045; 72125; 72170; 73501; 73502; 76604; 76770; 80048; 80051; 80053; 81003; 82550; 82728; 82805; 82945; 83540; 83550; 83615; 83735; 83880; 84100; 84132; 84157; 84484; 85025; 85379; 85610; 85730; 86140; 86850; 86900; 86901; 86920; 87070; 87075; 87102; 87116; 87205; 87206; 87252; 87324; 87496; 87498; 87502; 87529; 87634; 87635; 87798; 88108; 88305; 89050; 93005; 94002; 94003; 94640; 94760; 96361; 96374; 99291

== ENCOUNTER 2020-03-15 06:22 | Inpatient (IN) | payer MEDICARE ==
[2020-03-15] MEDS ORDERED: PANTOPRAZOLE 40 MG/10 ML VIAL IVP STA (06:44)
[2020-03-15] MEDS ORDERED: SODIUM CHLORIDE 0.9% 1,000 ML IV STA (06:44)
[2020-03-15] MEDS ORDERED: Kcentra PER PHARMACY 1 EACH MISC MISCELLANE PRN (06:49)
--- NOTE | 2020-03-15 06:55 | ED ---
General Adult HPI - General Chief complaint: GI Bleed Stated complaint: Hematuria Time Seen by Provider: 03/15/20 06:27 Source: patient, EMS, RN notes reviewed, old records reviewed Mode of arrival: EMS Limitations: physical limitation - History of Present Illness Initial comments: Patient is a 74-year-old male who presents from [facility] on the [place] with a chief complaint of a GI bleed. Patient has had bloody stools, some recent history of coughing up bloody emesis as well as hematuria. He noticed this for the past 1- 2 days. Patient was found to have a hemoglobin of 6.8 yesterday. Patient is on eliquis. Patient recently had a right hip fracture and was discharged from the hospital for the right hip fracture on the . At that time he subsequently tested positive for COVID as well during that hospitalization. He is requiring supplemental oxygen and is on a non-rebreather. Patient denies any abdominal pain. His main complaint for pain his right hip and rib discomfort. - Related Data Home Medications Medication Instructions Recorded Confirmed Tamsulosin [Flomax] 0.8 mg PO DAILY@0904/27/14 02/23/20 Linagliptin [Tradjenta] 5 mg PO DAILY@89912/24/19 02/23/20 Sennosides-Docusate Sodium 1 tab PO DAILY PRN 12/24/19 02/23/20 [Senokot-S] buPROPion XL [Wellbutrin XL] 150 mg PO DAILY@0912/24/19 02/23/20 hydrALAZINE HCL [Apresoline] 25 mg PO TID@0600,1400,209912/24/19 02/23/20 Acetaminophen Tab [Tylenol] 650 mg PO Q4H PRN 02/23/20 02/23/20 Aspirin 81 mg PO DAILY@89902/23/20 02/23/20 Atorvastatin [Lipitor] 20 mg PO HS@209902/23/20 02/23/20 Calcium Carbonate [Tums] 1,000 mg PO Q6H PRN 02/23/20 02/23/20 Escitalopram [Lexapro] 10 mg PO DAILY@0902/23/20 02/23/20 Insulin Glargine,Hum.rec.anlog 10 unit SQ HS@209902/23/20 02/23/20 [Basaglcelina Prakash U-100] Isosorbide Mononitrate ER [Imdur] 30 mg PO DAILY@0900 02/23/20 02/23/20 Metoprolol Tartrate [Lopressor] 50 mg PO BID@0900,2100 02/23/20 02/23/20 Omeprazole 20 mg PO DAILY@0600 02/23/20 02/23/20 Umeclidinium [place] [Incruse 1 puff INHALATION RT-DAILY@0900 02/23/20 02/23/20 Ellipta] Visine Tears 1 drop BOTH EYES DAILY PRN 02/23/20 02/23/20 Previous Rx's Medication Instructions Recorded ALPRAZolam [Xanax] 0.25 mg PO DAILY@0800,1700 PRN #6 03/09/20 tab Albuterol Inhaler [Ventolin Hfa 2 puff INHALATION RT-QID puff 03/09/20 Inhaler] Albuterol Inhaler [Ventolin Hfa 2 puff INHALATION RT-QID PRN puff 03/09/20 Inhaler] Apixaban [Eliquis] 5 mg PO BID tab 03/09/20 Benzocaine/Menthol Lozeng [Cepacol 1 each MUCOUS MEM Q4HR PRN lozenge 03/09/20 lozenge] Furosemide [Lasix] 40 mg PO DAILY #0 03/09/20 HYDROcodone/APAP 5-325MG [[place] 1 tab PO Q4HR PRN #42 tab 03/09/20 5-325] INSULIN LISPRO (HumaLOG) [humaLOG] 0 unit SQ ACHS #1 vial 03/09/20 Lidocaine 5% Patch [Lidoderm 5% 1 patch TOPICAL DAILY patch 03/09/20 Patch] Magnesium Oxide [Mag-Ox] 400 mg PO DAILY tab 03/09/20 Potassium Chloride ER [K-Dur 10] 10 meq PO DAILY tab.er.prt 03/09/20 Allergies Allergy/AdvReac Type Severity Reaction Status Date / Time iodine Allergy Rash/Hives Verified 02/23/20 21:33 morphine AdvReac Hallucinati Verified 02/23/20 21:33 ons Review of Systems ROS Statement: Those systems with pertinent positive or pertinent negative responses have been documented in the HPI. ROS Other: All systems not noted in ROS Statement are negative. Past Medical History Past Medical History: Heart Failure, COPD, Diabetes Mellitus, Hyperlipidemia, Hypertension Additional Past Medical History / Comment(s): enlarged prostate. History of Any Multi-Drug Resistant Organisms: None Reported Past Surgical History: Back Surgery Additional Past Surgical History / Comment(s): left first and second finger amputation. Past Anesthesia/Blood Transfusion Reactions: No Reported Reaction Past Psychological History: Anxiety Smoking Status: Former smoker Past Alcohol Use History: None Reported Past Drug Use History: None Reported - Past Family History Brother(s) Family Medical History: Cancer Mother Family Medical History: Diabetes Mellitus, Renal Disease General Exam - General Exam Comments Initial Comments: 74 year old male, Moderate distress and weak. Limitations: physical limitation General appearance: alert, in no apparent distress Head exam: Present: atraumatic, normocephalic, normal inspection Eye exam: Present: normal appearance, PERRL, EOMI. Absent: scleral icterus, conjunctival injection, periorbital swelling ENT exam: Present: normal exam, mucous membranes moist, other (requiring supplemental oxygen) Neck exam: Present: normal inspection, other. Absent: tenderness, meningismus, lymphadenopathy Respiratory exam: Present: normal lung sounds bilaterally Cardiovascular Exam: Present: regular rate, normal rhythm, normal heart sounds. Absent: systolic murmur, diastolic murmur, rubs, gallop, clicks GI/Abdominal exam: Present: soft, normal bowel sounds. Absent: distended, tenderness, guarding, rebound, rigid Rectal exam: Present: heme (+) stool, black stool, bloody stool, other (indwelling healy catheter. ). Absent: normal inspection Extremities exam: Present: normal inspection, full ROM, normal capillary refill, other (1+ pitting edema bilaterally.). Absent: tenderness, pedal edema, joint swelling, calf tenderness Back exam: Present: normal inspection, full ROM Neurological exam: Present: alert, oriented X3, CN II-XII intact Psychiatric exam: Present: normal affect, normal mood Skin exam: Present: warm, dry, intact, normal color. Absent: rash Course Vital Signs 03/15/20 03/15/20 03/15/20 06:31 07:40 07:56 Temperature 97.6 F Pulse Rate 79 63 70 Respiratory 16 18 18 Rate Blood Pressure 124/62 88/40 100/48 O2 Sat by Pulse 95 100 99 Oximetry - Reevaluation(s) Reevaluation #1: 03/15/20 07:53 Dr. Moscoso discussed the case with Dr. Akhtar as well as Dr. Gay Patient will be admitted to ICU. Medical Decision Making - Medical Decision Making 74-year-old male presents for [facility] in the [place] with complaints of general weakness, concerns for GI bleed. Reports no episodes of bloody emesis as well as black and bright red blood per rectum. Patient has active GI bleed at this time. He has is on Elquis. Patient was given K Centra and 1 unit of blood after hemoglobin is 5.3. Patient also recently had a right hip fracture and this was repaired by Dr. Angel and was tested positive for Covid on patient's last hospital admission. Patient is still requiring supplemental oxygen and is on 4L. patient's chest x-ray shows evidence of increased infiltrate over the right lung worsening from his previous chest x-ray on disch arge. Inserted her correlate for pneumonia. Patient was started on Zosyn and Levaquin for concern for HCAP Pneumonia, however this is could still be related to COVID. I discussed the case with Dr. Moscoso who discussed his Dr. Akhtar as well as Dr. Gay and Patient will be going to the ICU at this time for active GI bleed and pneumonia He is a full code. - Lab Data Result diagrams: 03/15/20 06:35 03/15/20 06:35 Lab Results 03/15/20 03/15/20 03/15/20 Range/Units 06:35 06:35 06:35 WBC 7.7 (3.8-10.6) k/uL RBC 2.12 L (4.30-5.90) m/uL Hgb 5.3 L* D (13.0-17.5) gm/dL Hct 17.7 L* (39.0-53.0) % MCV 83.7 (80.0-100.0) fL MCH 24.9 L (25.0-35.0) pg MCHC 29.8 L (31.0-37.0) g/dL RDW 20.7 H (11.5-15.5) % Plt Count 252 (150-450) k/uL Neutrophils % 78 % Lymphocytes % 12 % Monocytes % 5 % Eosinophils % 2 % Basophils % 1 % Neutrophils # 6.0 (1.3-7.7) k/uL Lymphocytes # 0.9 L (1.0-4.8) k/uL Monocytes # 0.4 (0-1.0) k/uL Eosinophils # 0.2 (0-0.7) k/uL Basophils # 0.0 (0-0.2) k/uL Hypochromasia Marked Anisocytosis Moderate Microcytosis Slight PT 12.3 H (9.0-12.0) sec INR 1.2 H (<1.2) APTT 29.0 (22.0-30.0) sec Sodium (137-145) mmol/L Potassium (3.5-5.1) mmol/L Chloride (98-107) mmol/L Carbon Dioxide (22-30) mmol/L Anion Gap mmol/L BUN (9-20) mg/dL Creatinine (0.66-1.25) mg/dL Est GFR (CKD-EPI)AfAm (>60 ml/min/1.73 sqM) Est GFR (CKD-EPI)NonAf (>60 ml/min/1.73 sqM) Glucose (74-99) mg/dL Plasma Lactic Acid Galen (0.7-2.0) mmol/L Calcium (8.4-10.2) mg/dL Magnesium (1.6-2.3) mg/dL Total Bilirubin (0.2-1.3) mg/dL AST (17-59) U/L ALT (4-49) U/L Alkaline Phosphatase (38-126) U/L Troponin I (0.000-0.034) ng/mL Total Protein (6.3-8.2) g/dL Albumin (3.5-5.0) g/dL Lipase (23-300) U/L Stool Occult Blood (Negative) Blood Type A Positive Blood Type Recheck A Pos Bld Type Recheck Status No Antibody Screen NEGATIVE Crossmatch See Detail Spec Expiration Date 03/18/2020 - 233403/15/20 03/15/20 03/15/20 Range/Units 06:35 06:35 06:35 WBC (3.8-10.6) k/uL RBC (4.30-5.90) m/uL Hgb (13.0-17.5) gm/dL Hct (39.0-53.0) % MCV (80.0-100.0) fL MCH (25.0-35.0) pg MCHC (31.0-37.0) g/dL RDW (11.5-15.5) % Plt Count (150-450) k/uL Neutrophils % % Lymphocytes % % Monocytes % % Eosinophils % % Basophils % % Neutrophils # (1.3-7.7) k/uL Lymphocytes # (1.0-4.8) k/uL Monocytes # (0-1.0) k/uL Eosinophils # (0-0.7) k/uL Basophils # (0-0.2) k/uL Hypochromasia Anisocytosis Microcytosis PT (9.0-12.0) sec INR (<1.2) APTT (22.0-30.0) sec Sodium 137 (137-145) mmol/L Potassium 4.7 (3.5-5.1) mmol/L Chloride 98 (98-107) mmol/L Carbon Dioxide 32 H (22-30) mmol/L Anion Gap 7 mmol/L BUN 48 H (9-20) mg/dL Creatinine 2.18 H (0.66-1.25) mg/dL Est GFR (CKD-EPI)AfAm 33 (>60 ml/min/1.73 sqM) Est GFR (CKD-EPI)NonAf 29 (>60 ml/min/1.73 sqM) Glucose 153 H (74-99) mg/dL Plasma Lactic Acid Galen 1.4 (0.7-2.0) mmol/L Calcium 8.0 L (8.4-10.2) mg/dL Magnesium 1.9 (1.6-2.3) mg/dL Total Bilirubin 0.4 (0.2-1.3) mg/dL AST 17 (17-59) U/L ALT 8 (4-49) U/L Alkaline Phosphatase 77 (38-126) U/L Troponin I 0.032 (0.000-0.034) ng/mL Total Protein 4.9 L (6.3-8.2) g/dL Albumin 2.4 L (3.5-5.0) g/dL Lipase 41 (23-300) U/L Stool Occult Blood (Negative) Blood Type Blood Type Recheck Bld Type Recheck Status Antibody Screen Crossmatch Spec Expiration Date 03/15/20 Range/Units 06:39 WBC (3.8-10.6) k/uL RBC (4.30-5.90) m/uL Hgb (13.0-17.5) gm/dL Hct (39.0-53.0) % MCV (80.0-100.0) fL MCH (25.0-35.0) pg MCHC (31.0-37.0) g/dL RDW (11.5-15.5) % Plt Count (150-450) k/uL Neutrophils % % Lymphocytes % % Monocytes % % Eosinophils % % Basophils % % Neutrophils # (1.3-7.7) k/uL Lymphocytes # (1.0-4.8) k/uL Monocytes # (0-1.0) k/uL Eosinophils # (0-0.7) k/uL Basophils # (0-0.2) k/uL Hypochromasia Anisocytosis Microcytosis PT (9.0-12.0) sec INR (<1.2) APTT (22.0-30.0) sec Sodium (137-145) mmol/L Potassium (3.5-5.1) mmol/L Chloride (98-107) mmol/L Carbon Dioxide (22-30) mmol/L Anion Gap mmol/L BUN (9-20) mg/dL Creatinine (0.66-1.25) mg/dL Est GFR (CKD-EPI)AfAm (>60 ml/min/1.73 sqM) Est GFR (CKD-EPI)NonAf (>60 ml/min/1.73 sqM) Glucose (74-99) mg/dL Plasma Lactic Acid Galen (0.7-2.0) mmol/L Calcium (8.4-10.2) mg/dL Magnesium (1.6-2.3) mg/dL Total Bilirubin (0.2-1.3) mg/dL AST (17-59) U/L ALT (4-49) U/L Alkaline Phosphatase (38-126) U/L Troponin I (0.000-0.034) ng/mL Total Protein (6.3-8.2) g/dL Albumin (3.5-5.0) g/dL Lipase (23-300) U/L Stool Occult Blood Positive (Negative) Blood Type Blood Type Recheck Bld Type Recheck Status Antibody Screen Crossmatch Spec Expiration Date 03/15/20 07:01 EKG at 654 shows normal sinus rhythm and ST-T wave abnormality considering to ischemia. Abnormal EKG. Ventricular rate 55 bpm. UT interval is 142 ms. QS duration is 88 ms. QT QTc is 456/474 ms. - Radiology Data Radiology results: report reviewed Chest x-ray shows worsening right-sided multifocal airspace disease consider pneumonia with increased confluence. Trace pleural effusions remain. Critical Care Time Critical Care Time: Yes Total Critical Care Time: 35 Disposition Clinical Impression: GI bleed, COVID-19, Pneumonia Disposition: ADMITTED IP TO THIS [facility] Condition: Stable Is patient prescribed a controlled substance at d/c from ED?: No Referrals: Hood Akhtar MD [Primary Care Provider] - 1-2 days Time of Disposition: 08:14
[2020-03-15 07:09] LABS: Albumin 2.4 g/dL (3.5-5.0); Magnesium 1.9 mg/dL (1.6-2.3); Potassium 4.7 mmol/L (3.5-5.1); Total Bilirubin 0.4 mg/dL (0.2-1.3); Total Protein 4.9 g/dL (6.3-8.2)
[2020-03-15 07:10] LABS: INR 1.2 (<1.2); Prothrombin Time 12.3 sec (9.0-12.0)
[2020-03-15 07:13] LABS: Anisocytosis Moderate; Basophils % (A) 1 %; Eosinophils # (A) 0.2 k/uL (0-0.7); Eosinophils % (A) 2 %; Hypochromasia Marked; Lymphocytes # (A) 0.9 k/uL (1.0-4.8); Lymphocytes % (A) 12 %; MCH 24.9 pg (25.0-35.0); MCHC 29.8 g/dL (31.0-37.0); MCV 83.7 fL (80.0-100.0); Mean Platelet Volume 8.3; Microcytosis Slight; Monocytes # (A) 0.4 k/uL (0-1.0); Monocytes % (A) 5 %; Neutrophils % (A) 78 %; Platelet Count 252 k/uL (150-450); RBC 2.12 m/uL (4.30-5.90); RDW 20.7 % (11.5-15.5); WBC 7.7 k/uL (3.8-10.6)
[2020-03-15] MEDS ORDERED: HUMAN PROTHROMBIN COMPLX IV ONE (07:15)
[2020-03-15 07:28] LABS: HCT 17.7 % (39.0-53.0); HGB 5.3 gm/dL (13.0-17.5)
[2020-03-15] MEDS ORDERED: SODIUM CHLORIDE 0.9% 1,000 ML IV ONE (07:51)
[2020-03-15] MEDS ORDERED: PIPERACILLIN-TAZOBACTAM 3.375 GM in SODIUM CHLORIDE 0.9% 100 ML IVPB STA (08:08)
[2020-03-15] MEDS ORDERED: PNEUMONIA PROTOCOL UTILIZED 1 EACH MISC PO PRN (08:08)
[2020-03-15] MEDS ORDERED: LEVOFLOXACIN 750MG-D5W PMX 750 MG in DEXTROSE/WATER 1 150ML.BAG IVPB STA (08:08)
--- NOTE | 2020-03-15 08:08 | XR ---
EXAMINATION TYPE: XR chest 1V portable DATE OF EXAM: 03/15/2020 COMPARISON: 03/06/2020 HISTORY: Chest pain and shortness of breath TECHNIQUE: Single frontal view of the chest is obtained. FINDINGS: There is worsening confluence of the right perihilar and right basilar airspace disease wi th persistent trace right pleural effusion and right minor fissural fluid. Trace left pleural effusio n remains. Strand-like probable atelectasis remains at the left lung base. Pleural thickening of the right upper lung laterally is redemonstrated. Cardia mediastinal silhouette is enlarged. Moderate deg enerative change of the spine and diffuse osseous demineralization. IMPRESSION: Worsening right-sided multifocal airspace disease. Consider pneumonia given increased co nfluence. Trace pleural effusions remain.
[2020-03-15] MEDS ORDERED: CALCIUM CARBONATE 500 MG CHEWABLE PO PRN (08:15)
[2020-03-15] MEDS ORDERED: FUROSEMIDE 40 MG TAB PO SCH (09:00)
[2020-03-15 09:12] LABS: Glucose,Whole Blood 155 mg/dL (75-99)
[2020-03-15] MEDS ORDERED: HUMAN PROTHROMBIN COMPLX 500 UNIT/16 ML VIAL IV ONE (09:32)
[2020-03-15] MEDS ORDERED: FUROSEMIDE 10 MG/ML 4 ML VIAL IV STA (09:51)
[2020-03-15] MEDS: ESCITALOPRAM 10 MG TAB PO SCH (10:04)
[2020-03-15] MEDS: buPROPion XL 150 MG TAB.ER.24H PO SCH (10:04)
[2020-03-15] MEDS: METOPROLOL TARTRATE 50 MG TAB PO SCH ×2 (10:14→19:56)
[2020-03-15] MEDS: LIDOCAINE 5% PATCH TOPICAL SCH (10:14)
[2020-03-15] MEDS: MAGNESIUM OXIDE 400 MG TAB PO SCH (10:14)
[2020-03-15] MEDS: LINAGLIPTIN 5 MG TABLET PO SCH (10:14)
[2020-03-15] MEDS: FUROSEMIDE 10 MG/ML 4 ML VIAL IV SCH (10:29)
[2020-03-15] MEDS ORDERED: LIDOCAINE 1% (10MG/ML) FOR IV START INTRADERMA PRN (10:40)
[2020-03-15] MEDS ORDERED: LACTATED RINGERS 1,000 ML IV SCH (10:45)
[2020-03-15] MEDS ORDERED: INSULIN LISPRO SQ SCH (12:30)
[2020-03-15] MEDS ORDERED: FUROSEMIDE 10 MG/ML 2 ML VIAL IV ONE (12:44)
[2020-03-15] MEDS: ISOSORBIDE MONONITRATE ER 30 MG TAB.ER.24H PO SCH (12:45)
--- NOTE | 2020-03-15 13:33 | P.CNPUL ---
History of Present Illness Consult date: 03/15/20 Requesting physician: Hood Akhtar Reason for consult: other (GI bleeding and anemia) Chief complaint: Bright red blood per rectum History of present illness: This is a 74-year-old white male with history of multiple medical problems, I saw this patient recently for cold 19 pneumonitis. I also saw the patient for right hip fracture requiring surgery and the fracture was secondary to fall. Patient was eventually discharged to [facility] on the abbasi. And he was brought in this morning mostly complaining of bloody stools, blood-tinged sputum, and hematuria. Yesterday his hemoglobin was 6.8, however today his hemoglobin was noted to be as low as 5.3 on admission. Patient was on Eliquis for atrial fibrillation, and upon evaluation in the ER, patient was placed on Kcentra, transfused a total of 2 units of packed RBCs so far, and his Eliquis was placed on hold. The patient is not a great historian, however he denies any chest pain, denies any fever, no chills, he had occasional episodes of blood-tinged sputum, denies any nausea vomiting abdominal pain. 2 units of packed RBCs were given since admission, repeat hemoglobin is pending. Reviewing his last admission, patient was discharged on 03/09, he had the right in situ screw fixation a nondisplaced right femoral neck fracture. His other medical problems included hypoxic respiratory failure secondary to chronic diastolic dysfunction, severe pulmonary hypertension, covid 19 pneumonitis, diabetes, hypertension, chronic hypoxic respiratory failure secondary to COPD, normally he is on option at 2 L. And he is also known to have history of cognitive impairment/dementia. Review of Systems ROS unobtainable: due to mental status Past Medical History Past Medical History: Heart Failure, COPD, Diabetes Mellitus, Hyperlipidemia, Hypertension Additional Past Medical History / Comment(s): enlarged prostate. History of Any Multi-Drug Resistant Organisms: None Reported Past Surgical History: Back Surgery Additional Past Surgical History / Comment(s): left first and second finger amputation. Past Anesthesia/Blood Transfusion Reactions: No Reported Reaction Past Psychological History: Anxiety Smoking Status: Former smoker Past Alcohol Use History: None Reported Past Drug Use History: None Reported - Past Family History Brother(s) Family Medical History: Cancer Mother Family Medical History: Diabetes Mellitus, Renal Disease Medications and Allergies Home Medications Medication Instructions Recorded Confirmed Type Tamsulosin [Flomax] 0.8 mg PO DAILY@0900 04/27/14 03/15/20 History Linagliptin [Tradjenta] 5 mg PO DAILY@89912/24/19 03/15/20 History buPROPion XL [Wellbutrin XL] 150 mg PO DAILY@0912/24/19 03/15/20 History hydrALAZINE HCL [Apresoline] 25 mg PO TID@0600,1400,209912/24/19 03/15/20 History Acetaminophen Tab [Tylenol] 650 mg PO Q4H PRN 02/23/20 03/15/20 History Aspirin 81 mg PO DAILY@89902/23/20 03/15/20 History Atorvastatin [Lipitor] 20 mg PO HS@209902/23/20 03/15/20 History Calcium Carbonate [Tums] 1,000 mg PO Q6H PRN 02/23/20 03/15/20 History Escitalopram [Lexapro] 10 mg PO DAILY@89902/23/20 03/15/20 History Isosorbide Mononitrate ER [Imdur] 30 mg PO DAILY@89902/23/20 03/15/20 History Metoprolol Tartrate [Lopressor] 50 mg PO BID@0900,209902/23/20 03/15/20 History Omeprazole 20 mg PO DAILY@59902/23/20 03/15/20 History Umeclidinium [place] [Incruse 1 puff INHALATION RT-DAILY@89902/23/20 03/15/20 History Ellipta] Albuterol Inhaler [Ventolin Hfa 2 puff INHALATION RT-QID PRN puff 03/09/20 03/15/20 Rx Inhaler] HYDROcodone/APAP 5-325MG [[place] 1 tab PO Q4HR PRN #42 tab 03/09/20 03/15/20 Rx 5-325] ALPRAZolam [Xanax] 0.25 mg PO BID@0800,1700 03/15/20 03/15/20 History ALPRAZolam [Xanax] 0.25 mg PO DAILY PRN 03/15/20 03/15/20 History Benzocaine/Menthol Lozeng [Cepacol 1 lozenge MUCOUS MEM Q4HR PRN 03/15/20 03/15/20 History lozenge] Collagenase [Santyl] 1 applic TOPICAL DAILY 03/15/20 03/15/20 History Furosemide [Lasix] 40 mg PO DAILY@0900 03/15/20 03/15/20 History HYDROcodone/APAP 5-325MG [[place] 2 tab PO Q4HR PRN 03/15/20 03/15/20 History 5-325] Insulin Glargine,Hum.rec.anlog 10 unit SQ HS@2100 03/15/20 03/15/20 History [Basaglar Lorieikpen U-100] Lidocaine 5% Patch [Lidoderm] 1 patch TOPICAL DAILY@0903/15/20 03/15/20 History Magnesium Oxide 400 mg PO DAILY@0903/15/20 03/15/20 History Potassium Chloride ER [K-Dur 10] 10 meq PO DAILY@0900 03/15/20 03/15/20 History Sennosides [Senokot] 8.6 mg PO DAILY PRN 03/15/20 03/15/20 History Visine Tears Solution 0.2-02-1% 1 drop BOTH EYES DAILY PRN 03/15/20 03/15/20 History Allergies Allergy/AdvReac Type Severity Reaction Status Date / Time iodine Allergy Rash/Hives Verified 03/15/20 08:20 morphine AdvReac Hallucinati Verified 03/15/20 08:20 ons Physical Exam Vitals: Vital Signs Temp Pulse Resp BP Pulse Ox 03/15/20 13:11 97.7 F 59 L 14 117/58 100 03/15/20 11:30 65 8 L 118/54 100 03/15/20 11:00 63 9 L 116/54 100 03/15/20 10:54 97.6 F 68 12 118/63 03/15/20 10:45 58 L 10 L 103/51 100 03/15/20 10:44 97.5 F L 58 L 18 116/54 100 03/15/20 10:35 97.8 F 67 16 103/51 96 03/15/20 10:30 57 L 12 120/55 100 03/15/20 10:00 71 11 L 116/67 100 03/15/20 09:45 65 12 116/67 100 03/15/20 09:15 28 H 137/62 100 03/15/20 08:55 97.6 F 64 18 109/55 100 03/15/20 08:38 97.6 F 64 18 109/55 100 03/15/20 08:29 68 18 107/69 100 03/15/20 07:56 70 18 100/48 99 03/15/20 07:40 63 18 88/40 100 03/15/20 06:31 97.6 F 79 16 124/62 95 Intake and Output 03/14/20 03/15/20 03/15/20 22:59 06:59 14:59 Intake Total 860 Output Total 380 Balance 480 Intake: Intake, IV Titration 190 Amount Lactated Ringers 1,000 ml 40 @ 20 mls/hr IV .Q24H [facility] Rx#:[id number] Levofloxacin 750Mg-D5w 150 Pmx 750 mg In Dextrose/ Water 1 150ml.bag @ 100 mls/hr IVPB ONCE STA Rx#: [id number] Oral 50 Blood Product 620 Rc As-3 Unit 310 [id number] Rc As-3 Unit 310 [id number] Output: Urine 380 Other: Weight 67.132 kg GENERAL EXAM: Awake, alert, 74-year-old male patient, on 4 L O2, and his O2 saturation is 100%. HEAD: Normocephalic/atraumatic. EYES: Normal reaction of pupils, equal size. Conjunctiva pink, sclera white. NOSE: Clear with pink turbinates. THROAT: No erythema or exudates. NECK: No masses, no JVD, no thyroid enlargement, no adenopathy. CHEST: No chest wall deformity. Symmetrical expansion. LUNGS: Equal air entry with few scattered rhonchi, crackles at the bases CVS: Regular rate and rhythm, normal S1 and S2, no gallops, no murmurs, no rubs ABDOMEN: Soft, nontender. No hepatosplenomegaly, normal bowel sounds, no guarding or rigidity. EXTREMITIES: No clubbing, no cyanosis, 2+ pulses and upper and lower extremities. Tenderness in the right hip, with 1+ lower extremity edema. Missing first and second digits of the left hand MUSCULOSKELETAL: Muscle strength and tone normal. SPINE: No scoliosis or deformity SKIN: No rashes CENTRAL NERVOUS SYSTEM: Somnolent. He opens eyes, follows simple instructions, not a great historian Results - Laboratory Findings CBC and BMP: 03/15/20 06:35 03/15/20 06:35 PT/INR, D-dimer PT 12.3 sec (9.0-12.0) H 03/15/20 06:35 INR 1.2 (<1.2) H 03/15/20 06:35 Abnormal lab findings: Abnormal Labs 03/15/20 03/15/20 03/15/20 06:35 06:35 06:35 RBC 2.12 L Hgb 5.3 L* D Hct 17.7 L* MCH 24.9 L MCHC 29.8 L RDW 20.7 H Lymphocytes # 0.9 L PT 12.3 H INR 1.2 H Carbon Dioxide BUN Creatinine Glucose POC Glucose (mg/dL) Calcium Total Protein Albumin Crossmatch See Detail 03/15/20 03/15/20 06:35 09:10 RBC Hgb Hct MCH MCHC RDW Lymphocytes # PT INR Carbon Dioxide 32 H BUN 48 H Creatinine 2.18 H Glucose 153 H POC Glucose (mg/dL) 155 H Calcium 8.0 L Total Protein 4.9 L Albumin 2.4 L Crossmatch - Diagnostic Findings Chest x-ray: image reviewed (Chest x-ray showed right perihilar and right basilar airspace disease as well as trace of left pleural effusion and atelectasis at the left lung base. Slightly worse compared to previous x-ray on the last admission.) Assessment and Plan Assessment: Impression: Acute GI bleeding, likely lower GI bleed most likely secondary to diverticular disease, worsened or exacerbated by the fact that the patient is on Eliquis. Recent history of covid 19 infection Severe pulmonary hypertension Chronic hypoxic respiratory failure secondary to COPD, chronic diastolic congestive heart failure, and Covid 19 pneumonitis. Severe anemia secondary to GI bleeding Chronic atrial fibrillation Acute on chronic renal failure History of dementia Type 2 diabetes Benign essential hypertension Dyslipidemia Severe COPD, oxygen dependent, quit smoking 3 years ago. Medical debility and deconditioning secondary to multiple comorbidities. Recommendation: Agree with the present treatment plan including kcentra, hold Eliquis, Protonix, and a GI consultation transfuse to keep hemoglobin above 7. Resume bronchodilators. Continue IV fluid Patient expressed to the nurse wishes to be DO NOT RESUSCITATE CODE STATUS Consider hospice in this patient. We'll continue to follow Time with Patient: Greater than 30
[2020-03-15 15:19] LABS: Anisocytosis Slight; Hypochromasia Marked; MCH 26.4 pg (25.0-35.0); MCHC 30.8 g/dL (31.0-37.0); MCV 85.6 fL (80.0-100.0); Mean Platelet Volume 8.2; Platelet Count 183 k/uL (150-450); Poikilocytosis Moderate; RBC 2.68 m/uL (4.30-5.90); RDW 18.8 % (11.5-15.5); WBC 6.7 k/uL (3.8-10.6)
[2020-03-15 15:21] LABS: HGB 7.1 gm/dL (13.0-17.5)
[2020-03-15] MEDS: hydrALAZINE HCL 25 MG TAB PO SCH ×2 (15:57→19:56)
[2020-03-15] MEDS: PIPERACILLIN-TAZOBACTAM 3.375 GM in SODIUM CHLORIDE 0.9% 100 ML IVPB SCH ×2 (15:59→23:56)
--- NOTE | 2020-03-15 16:52 | P.HPIM ---
History of Present Illness H&P Date: 03/15/20 Chief Complaint: Rectal bleeding Hospital course:74-year-old male resident currently at [facility] subacute rehab ,known to the practice with history of severe pulmonary hypertension, hypertension hyperlipidemia diabetes mellitus type 2 former smoker anxiety COPD stage III chronic renal insufficiency, recent pneumonia, early dementia (Montral cognitive scoring at [facility] 11 out of 30), recent right hip in situ screw fixation for nondisplaced right transcervical femoral neck fracture- on eliquis, transferred to the ER with complaints of rectal bleeding, maroon with blood clots. Hemoglobin yesterday reported from the ER at 6.8, on arrival 5.3, hypoxic, requiring a nonrebreather. Denies abdominal pain, complains of right hip and rib pain. No hemoptysis, no hematochezia. In the ER patient received K Centra two units of packed RBCs, with Eliquis placed on hold. Chest x-ray reporting increased infiltrate on the right lung worsening from prior x- ray. Zosyn, Levaquin initiated for potential H Pneumonia. INR 1.2, BUN 48, creatinine 2.18. CO2 32. Troponin 0.032. Denies chest pain, palpitations , oxygen has been weaned down to 4 L nasal cannula .Poor historian. GI and pulmonary/debt management counselor consulted. Review of Systems ROS Statement: Those systems with pertinent positive or pertinent negative responses have been documented in the HPI. ROS Other: All systems not noted in ROS Statement are negative. Past Medical History Past Medical History: Heart Failure, COPD, Diabetes Mellitus, Hyperlipidemia, Hypertension Additional Past Medical History / Comment(s): enlarged prostate. History of Any Multi-Drug Resistant Organisms: None Reported Past Surgical History: Back Surgery Additional Past Surgical History / Comment(s): left first and second finger amputation. Past Anesthesia/Blood Transfusion Reactions: No Reported Reaction Past Psychological History: Anxiety Smoking Status: Former smoker Past Alcohol Use History: None Reported Past Drug Use History: None Reported - Past Family History Brother(s) Family Medical History: Cancer Mother Family Medical History: Diabetes Mellitus, Renal Disease Medications and Allergies Home Medications Medication Instructions Recorded Confirmed Type Tamsulosin [Flomax] 0.8 mg PO DAILY@0900 04/27/03/15/20 History Linagliptin [Tradjenta] 5 mg PO DAILY@0900 12/24/19 03/15/20 History buPROPion XL [Wellbutrin XL] 150 mg PO DAILY@0912/24/19 03/15/20 History hydrALAZINE HCL [Apresoline] 25 mg PO TID@0600,1400,209912/24/19 03/15/20 History Acetaminophen Tab [Tylenol] 650 mg PO Q4H PRN 02/23/20 03/15/20 History Aspirin 81 mg PO DAILY@89902/23/20 03/15/20 History Atorvastatin [Lipitor] 20 mg PO HS@209902/23/20 03/15/20 History Calcium Carbonate [Tums] 1,000 mg PO Q6H PRN 02/23/20 03/15/20 History Escitalopram [Lexapro] 10 mg PO DAILY@89902/23/20 03/15/20 History Isosorbide Mononitrate ER [Imdur] 30 mg PO DAILY@89902/23/20 03/15/20 History Metoprolol Tartrate [Lopressor] 50 mg PO BID@0900,209902/23/20 03/15/20 History Omeprazole 20 mg PO DAILY@59902/23/20 03/15/20 History Umeclidinium [place] [Incruse 1 puff INHALATION RT-DAILY@89902/23/20 03/15/20 History Ellipta] Albuterol Inhaler [Ventolin Hfa 2 puff INHALATION RT-QID PRN puff 03/09/20 03/15/20 Rx Inhaler] HYDROcodone/APAP 5-325MG [[place] 1 tab PO Q4HR PRN #42 tab 03/09/20 03/15/20 Rx 5-325] ALPRAZolam [Xanax] 0.25 mg PO BID@0800,1700 03/15/20 03/15/20 History ALPRAZolam [Xanax] 0.25 mg PO DAILY PRN 03/15/20 03/15/20 History Benzocaine/Menthol Lozeng [Cepacol 1 lozenge MUCOUS MEM Q4HR PRN 03/15/20 03/15/20 History lozenge] Collagenase [Santyl] 1 applic TOPICAL DAILY 03/15/20 03/15/20 History Furosemide [Lasix] 40 mg PO DAILY@0900 20 05/18/20 History HYDROcodone/APAP 5-325MG [[place] 2 tab PO Q4HR PRN 03/15/20 03/15/20 History 5-325] Insulin Glargine,Hum.rec.anlog 10 unit SQ HS@2100 03/15/20 03/15/20 History [[place]enaglcelina Prakash U-100] Lidocaine 5% Patch [Lidoderm] 1 patch TOPICAL DAILY@89903/15/20 03/15/20 History Magnesium Oxide 400 mg PO DAILY@89903/15/20 03/15/20 History Potassium Chloride ER [K-Dur 10] 10 meq PO DAILY@89903/15/20 03/15/20 History Sennosides [Senokot] 8.6 mg PO DAILY PRN 03/15/20 03/15/20 History Visine Tears Solution 0.2-02-1% 1 drop BOTH EYES DAILY PRN 03/15/20 03/15/20 History Allergies Allergy/AdvReac Type Severity Reaction Status Date / Time iodine Allergy Rash/Hives Verified 03/15/20 08:20 morphine AdvReac Hallucinati Verified 03/15/20 08:20 ons Physical Exam Vitals: Vital Signs Temp Pulse Resp BP Pulse Ox 03/15/20 08:55 97.6 F 64 18 109/55 100 03/15/20 08:38 97.6 F 64 18 109/55 100 03/15/20 08:29 68 18 107/69 100 03/15/20 07:56 70 18 100/48 99 03/15/20 07:40 63 18 88/40 100 03/15/20 06:31 97.6 F 79 16 124/62 95 Intake and Output 03/14/20 03/15/20 03/15/20 22:59 06:59 14:59 Intake Total 0 Balance 0 Intake: Blood Product 0 Rc As-3 Unit 0 [id number] Other: Weight 67.132 kg General: Sitting up in bed, no acute distress HEENT: [PERRL. EOMI. No pharyngeal erythema or exudate. Oral mucosa moist. Neck: [No adenopathy. No JVD Cardiac: [Heart regular in rate and rhythm. No S3. No S4. No clicks, rubs. No murmur. Lungs: Bilateral bases diminished, occasional scattered coarse rhonchi, fine basilar crackles, no wheezing. Abdomen: [Soft, nontender,No mass. No organomegaly. Positive Bowel sounds present. Extremes: Right hip tender, sensation grossly intact, positive edema bilateral lower extremities, no clubbing, no cyanosis, positive pulses Skin: left hand with first and second digit missing .No rash.] Neurologic: [No lateralizing deficits. CN II - XII grossly intact.] Results CBC & Chem 7: 03/15/20 15:08 03/15/20 06:35 Labs: Abnormal Lab Results - Last 24 Hours (Table) 03/15/20 03/15/20 03/15/20 Range/Units 06:35 06:35 06:35 RBC 2.12 L (4.30-5.90) m/uL Hgb 5.3 L* D (13.0-17.5) gm/dL Hct 17.7 L* (39.0-53.0) % MCH 24.9 L (25.0-35.0) pg MCHC 29.8 L (31.0-37.0) g/dL RDW 20.7 H (11.5-15.5) % Lymphocytes # 0.9 L (1.0-4.8) k/uL PT 12.3 H (9.0-12.0) sec INR 1.2 H (<1.2) Carbon Dioxide (22-30) mmol/L BUN (9-20) mg/dL Creatinine (0.66-1.25) mg/dL Glucose (74-99) mg/dL POC Glucose (mg/dL) (75-99) mg/dL Calcium (8.4-10.2) mg/dL Total Protein (6.3-8.2) g/dL Albumin (3.5-5.0) g/dL Crossmatch See Detail 03/15/20 03/15/20 Range/Units 06:35 09:10 RBC (4.30-5.90) m/uL Hgb (13.0-17.5) gm/dL Hct (39.0-53.0) % MCH (25.0-35.0) pg MCHC (31.0-37.0) g/dL RDW (11.5-15.5) % Lymphocytes # (1.0-4.8) k/uL PT (9.0-12.0) sec INR (<1.2) Carbon Dioxide 32 H (22-30) mmol/L BUN 48 H (9-20) mg/dL Creatinine 2.18 H (0.66-1.25) mg/dL Glucose 153 H (74-99) mg/dL POC Glucose (mg/dL) 155 H (75-99) mg/dL Calcium 8.0 L (8.4-10.2) mg/dL Total Protein 4.9 L (6.3-8.2) g/dL Albumin 2.4 L (3.5-5.0) g/dL Crossmatch Assessment and Plan Assessment: -Acute GI bleed, in a patient on Eliquis -Acute severe blood loss anemia secondary to the above -Acute on chronic hypoxic respiratory failure secondary to the above; wears 2 L at home -Recent right in situ screw fixation for nondisplaced right transcervical femor al neck fracture, status post fall -Chronic CHF, diastolic dysfunction, EF 50-55% -Severe pulmonary hypertension -Recent Covid 19 pneumonia, repeat coronavirus testing pending -Acute on chronic renal failure -Diabetes mellitus -Hypertension -Chronic atrial fibrillation -Dementia,Cognitive impairment, recent ventral cognitive assessment at [facility] reported 11 out of 30 - prior nicotine dependence -Dyslipidemia -Medical debility Plan: Continue on current medication regime ,monitoring and symptomatic treatment. Continue holding Eliquis. Maintain on PPI,Kcentra. Receiving 2 units of packed RBCs with Lasix ordered after each unit. Patient had received 2 L of fluid boluses in the ER, history of CHF. Nebulized bronchodilators. GI and pulmonary consult in place with recommendations pending. Prognosis guarded given multiple complex medical issues. The impression and plan of care has been dictated as directed. : I performed a history and examination of this patient, discussed the same with the dictator. I agree with the dictator's note ,documented as a scribe. Any additional findings or plans will be noted.
--- NOTE | 2020-03-15 17:17 | P.CONS ---
History of Present Illness - Reason for Consult Consult date: 03/15/20 GI bleed Requesting physician: Hood Akhtar - Chief Complaint GI bleed - History of Present Illness 74-year-old female with multiple medical comorbidities including pulmonary hypertension, hyperlipidemia, chronic kidney disease, COPD, former tobacco abuse, diabetes mellitus, hypertension, dementia, recent right hip fracture status post repair and recent diagnosis of amado virus who presented to the hospital from the subacute rehab facility where he was staying due to a constellation of symptoms. Of note the patient is quite lethargic at present and history is been taken in combination of review of the medical record, and discussion with nursing and on questioning of the patient. The patient has been on anticoagulation therapy with Eliquis. The patient concerns over passage of blood clots per rectum, hematuria and hemoptysis. Patient was noted to have a hemoglobin of 6.8 yesterday and was sent in for further evaluation. Patient has been given reversal agents for his anticoagulation. On presentation hemoglobin was found to be 5.3. Other laboratory evaluation significant for WBC 7.7, platelet count 252,000, INR 1.2, total bilirubin 0.4, alkaline phosphatase 77, AST 17 and ALT 8 with stool testing positive for occult blood. Chest x-ray showed right multifocal airspace disease. No further evidence of GI bleeding since presentation. No nausea vomiting reported. Review of Systems ROS unobtainable: due to mental status (Review of systems could not be obtained due to mental status.) Past Medical History Past Medical History: Heart Failure, COPD, Diabetes Mellitus, Hyperlipidemia, Hypertension Additional Past Medical History / Comment(s): enlarged prostate. History of Any Multi-Drug Resistant Organisms: None Reported Past Surgical History: Back Surgery Additional Past Surgical History / Comment(s): left first and second finger amputation. Past Anesthesia/Blood Transfusion Reactions: No Reported Reaction Past Psychological History: Anxiety Smoking Status: Former smoker Past Alcohol Use History: None Reported Past Drug Use History: None Reported - Past Family History Brother(s) Family Medical History: Cancer Mother Family Medical History: Diabetes Mellitus, Renal Disease Medications and Allergies Home Medications Medication Instructions Recorded Confirmed Type Tamsulosin [Flomax] 0.8 mg PO DAILY@0900 04/27/03/15/20 History Linagliptin [Tradjenta] 5 mg PO DAILY@0900 12/24/19 03/15/20 History buPROPion XL [Wellbutrin XL] 150 mg PO DAILY@0900 12/24/19 03/15/20 History hydrALAZINE HCL [Apresoline] 25 mg PO TID@0600,1400,209912/24/19 03/15/20 History Acetaminophen Tab [Tylenol] 650 mg PO Q4H PRN 02/23/20 03/15/20 History Aspirin 81 mg PO DAILY@0902/23/20 03/15/20 History Atorvastatin [Lipitor] 20 mg PO HS@209902/23/20 03/15/20 History Calcium Carbonate [Tums] 1,000 mg PO Q6H PRN 02/23/20 03/15/20 History Escitalopram [Lexapro] 10 mg PO DAILY@89902/23/20 03/15/20 History Isosorbide Mononitrate ER [Imdur] 30 mg PO DAILY@89902/23/20 03/15/20 History Metoprolol Tartrate [Lopressor] 50 mg PO BID@0900,209902/23/20 03/15/20 History Omeprazole 20 mg PO DAILY@59902/23/20 03/15/20 History Umeclidinium [place] [Incruse 1 puff INHALATION RT-DAILY@89902/23/20 03/15/20 History Ellipta] Albuterol Inhaler [Ventolin Hfa 2 puff INHALATION RT-QID PRN puff 03/09/20 03/15/20 Rx Inhaler] HYDROcodone/APAP 5-325MG [[place] 1 tab PO Q4HR PRN #42 tab 03/09/20 03/15/20 Rx 5-325] ALPRAZolam [Xanax] 0.25 mg PO BID@0800,1700 03/15/20 03/15/20 History ALPRAZolam [Xanax] 0.25 mg PO DAILY PRN 03/15/20 03/15/20 History Benzocaine/Menthol Lozeng [Cepacol 1 lozenge MUCOUS MEM Q4HR PRN 03/15/20 03/15/20 History lozenge] Collagenase [Santyl] 1 applic TOPICAL DAILY 03/15/20 03/15/20 History Furosemide [Lasix] 40 mg PO DAILY@0900 03/15/2003/15/20 History HYDROcodone/APAP 5-325MG [[place] 2 tab PO Q4HR PRN 03/15/20 03/15/20 History 5-325] Insulin Glargine,Hum.rec.anlog 10 unit SQ HS@2100 03/15/20 03/15/20 History [Basaglar Papitopen U-100] Lidocaine 5% Patch [Lidoderm] 1 patch TOPICAL DAILY@89903/15/20 03/15/20 History Magnesium Oxide 400 mg PO DAILY@89903/15/20 03/15/20 History Potassium Chloride ER [K-Dur 10] 10 meq PO DAILY@89903/15/20 03/15/20 History Sennosides [Senokot] 8.6 mg PO DAILY PRN 03/15/20 03/15/20 History Visine Tears Solution 0.2-02-1% 1 drop BOTH EYES DAILY PRN 03/15/20 03/15/20 History Allergies Allergy/AdvReac Type Severity Reaction Status Date / Time iodine Allergy Rash/Hives Verified 03/15/20 08:20 morphine AdvReac Hallucinati Verified 03/15/20 08:20 ons Physical Exam Vitals: Vital Signs Temp Pulse Resp BP Pulse Ox 03/15/20 08:55 97.6 F 64 18 109/55 100 03/15/20 08:38 97.6 F 64 18 109/55 100 03/15/20 08:29 68 18 107/69 100 03/15/20 07:56 70 18 100/48 99 03/15/20 07:40 63 18 88/40 100 03/15/20 06:31 97.6 F 79 16 124/62 95 Intake and Output 03/14/20 03/15/20 03/15/20 22:59 06:59 14:59 Intake Total 0 Balance 0 Intake: Blood Product 0 Rc As-3 Unit 0 [id number] Other: Weight 67.132 kg On physical examination, patient appears comfortable in no apparent distress. HEAD: Normocephalic, atraumatic. EYES: No scleral icterus. No conjunctival injection. MOUTH: No lesions, tongue midline. NECK: Trachea midline, no gross abnormalities. CHEST: Decreased air entry in all lung mcmullen. HEART: S1-S2 appreciated. ABDOMEN: Soft, mildly tender to palpation. Bowel sounds are positive. No organomegaly. No guarding or rigidity. EXTREMITIES: No pedal edema. SKIN: No rashes, no jaundice. NEUROLOGIC: Alert and oriented to person both somewhat lethargic. No focal deficits. Results CBC & Chem 7: 03/15/20 15:08 03/15/20 06:35 Labs: Abnormal Lab Results - Last 24 Hours (Table) 03/15/20 03/15/20 03/15/20 Range/Units 06:35 06:35 06:35 RBC 2.12 L (4.30-5.90) m/uL Hgb 5.3 L* D (13.0-17.5) gm/dL Hct 17.7 L* (39.0-53.0) % MCH 24.9 L (25.0-35.0) pg MCHC 29.8 L (31.0-37.0) g/dL RDW 20.7 H (11.5-15.5) % Lymphocytes # 0.9 L (1.0-4.8) k/uL PT 12.3 H (9.0-12.0) sec INR 1.2 H (<1.2) Carbon Dioxide (22-30) mmol/L BUN (9-20) mg/dL Creatinine (0.66-1.25) mg/dL Glucose (74-99) mg/dL POC Glucose (mg/dL) (75-99) mg/dL Calcium (8.4-10.2) mg/dL Total Protein (6.3-8.2) g/dL Albumin (3.5-5.0) g/dL Crossmatch See Detail 03/15/20 03/15/20 Range/Units 06:35 09:10 RBC (4.30-5.90) m/uL Hgb (13.0-17.5) gm/dL Hct (39.0-53.0) % MCH (25.0-35.0) pg MCHC (31.0-37.0) g/dL RDW (11.5-15.5) % Lymphocytes # (1.0-4.8) k/uL PT (9.0-12.0) sec INR (<1.2) Carbon Dioxide 32 H (22-30) mmol/L BUN 48 H (9-20) mg/dL Creatinine 2.18 H (0.66-1.25) mg/dL Glucose 153 H (74-99) mg/dL POC Glucose (mg/dL) 155 H (75-99) mg/dL Calcium 8.0 L (8.4-10.2) mg/dL Total Protein 4.9 L (6.3-8.2) g/dL Albumin 2.4 L (3.5-5.0) g/dL Crossmatch Chest x-ray: report reviewed (Worsening right multifocal airspace disease on chest x-ray) Assessment and Plan (1) Anemia associated with acute blood loss Narrative/Plan: 74-year-old male with multiple medical comorbidities who presented to the hospital due to findings of anemia on laboratory evaluation with patient's having reports of blood per rectum, hematuria and hemoptysis. Recent hospitalization with repair of right hip fracture as well as treatment for the novel coronavirus. Signs of lower GI bleed, with suspicion for possible diverticular bleed, differential also includes AVM, history of colorectal ulcer, peptic ulcer disease or other etiology, likely exacerbated in the setting of anticoagulation therapy. Current Visit: Yes Status: Acute Code(s): D62 - ACUTE POSTHEMORRHAGIC ANEMIA SNOMED Code(s): 912427181 (2) GI bleed Current Visit: Yes Status: Acute Code(s): K92.2 - GASTROINTESTINAL HEMORRHAGE, UNSPECIFIED SNOMED Code(s): 93554963 Plan: Supportive care Okay to initiate liquid diet when patient's mentation is improved Continue to monitor hemoglobin and hematocrit and transfuse as needed Protonix 40 mg twice daily Continue to hold anticoagulation therapy Continue to monitor for signs or symptoms of GI bleeding Continue other medical management per primary team and the spanish speaking babysitter service We will continue to monitor, decision on endoscopic evaluation pending clinical course Thank you for allowing us to participate in the care of the patient
[2020-03-15] MEDS: ALPRAZolam 0.25 MG TAB PO PRN (18:08)
[2020-03-15] MEDS: ATORVASTATIN 20 MG TAB PO SCH ×2 (19:56→20:25)
[2020-03-15] MEDS: PANTOPRAZOLE 40 MG/10 ML VIAL IVP SCH (19:57)
[2020-03-15] MEDS: HYDROcodone/APAP 5-325MG 1 EACH TAB PO PRN ×3 (19:57→23:49)
[2020-03-15 20:18] LABS: Glucose,Whole Blood 122 mg/dL (75-99)
[2020-03-15] MEDS: INSULIN DETEMIR (LEVEMIR) 100 UNIT/ML SYR SQ SCH (20:24)
[2020-03-15 21:28] LABS: Anisocytosis Slight; HCT 23.4 % (39.0-53.0); Hypochromasia Marked; MCH 25.6 pg (25.0-35.0); MCV 85.1 fL (80.0-100.0); Mean Platelet Volume 7.6; Platelet Count 168 k/uL (150-450); Poikilocytosis Moderate; RBC 2.74 m/uL (4.30-5.90); WBC 7.9 k/uL (3.8-10.6)
[2020-03-15 22:35] LABS: Glucose,Whole Blood 127 mg/dL (75-99)
[2020-03-16 05:25] LABS: Calcium 7.9 mg/dL (8.4-10.2); Potassium 4.4 mmol/L (3.5-5.1)
[2020-03-16 05:27] LABS: Anisocytosis Slight; Basophils % (A) 0 %; Eosinophils # (A) 0.2 k/uL (0-0.7); Eosinophils % (A) 3 %; HCT 22.1 % (39.0-53.0); Hypochromasia Marked; Lymphocytes # (A) 0.9 k/uL (1.0-4.8); Lymphocytes % (A) 13 %; MCH 26.8 pg (25.0-35.0); MCHC 30.9 g/dL (31.0-37.0); MCV 86.6 fL (80.0-100.0); Mean Platelet Volume 8.1; Monocytes # (A) 0.6 k/uL (0-1.0); Monocytes % (A) 8 %; Neutrophils # (A) 5.1 k/uL (1.3-7.7); Neutrophils % (A) 74 %; Platelet Count 178 k/uL (150-450); Poikilocytosis Marked; RBC 2.55 m/uL (4.30-5.90); RDW 18.8 % (11.5-15.5); WBC 6.9 k/uL (3.8-10.6)
[2020-03-16] MEDS: hydrALAZINE HCL 25 MG TAB PO SCH ×3 (05:30→20:45)
[2020-03-16 05:34] LABS: HGB 6.8 gm/dL (13.0-17.5)
[2020-03-16 05:37] LABS: Glucose,Whole Blood 56 mg/dL (75-99)
[2020-03-16] MEDS ORDERED: DEXTROSE 50% SYRINGE 50 ML IVP ONE (05:37)
[2020-03-16 05:47] LABS: Glucose,Whole Blood 182 mg/dL (75-99)
--- NOTE | 2020-03-16 06:41 | XR ---
EXAMINATION TYPE: XR chest 1V portable DATE OF EXAM: 03/16/2020 CLINICAL HISTORY: Chest pain progress study. TECHNIQUE: Single AP portable upright view of the chest is obtained. COMPARISON: Chest x-ray from one day earlier and older studies. FINDINGS: Redemonstration of cardiomegaly with atherosclerotic thoracic aorta. Background chronic em physematous change with persistent central vascular congestion and small to borderline moderate size right pleural effusion with associated right mid to lower lung atelectasis and/or infiltrate. Stable tiny left pleural effusion and associated left basilar atelectasis. Osseous structures remain deminer alized. Redemonstration of lateral lower right rib fractures though these were present March 06, 2020 [facility]. IMPRESSION: Persisting cardiomegaly and central vascular congestion with tiny left pleural effusion a nd associated left basilar atelectasis all fairly stable. Small to borderline moderate sized right pl eural effusion with right mid to lower lung acute infiltrate and/or atelectasis slightly more promine nt from one day earlier
[2020-03-16] MEDS ORDERED: FUROSEMIDE 10 MG/ML 4 ML VIAL IV STA ×2 (08:27→12:49)
[2020-03-16] MEDS: PIPERACILLIN-TAZOBACTAM 3.375 GM in SODIUM CHLORIDE 0.9% 100 ML IVPB SCH ×3 (08:48→23:32)
[2020-03-16] MEDS: LINAGLIPTIN 5 MG TABLET PO SCH (08:49)
[2020-03-16] MEDS: ESCITALOPRAM 10 MG TAB PO SCH (08:49)
[2020-03-16] MEDS: MAGNESIUM OXIDE 400 MG TAB PO SCH (08:49)
[2020-03-16] MEDS: buPROPion XL 150 MG TAB.ER.24H PO SCH (08:49)
[2020-03-16] MEDS: LIDOCAINE 5% PATCH TOPICAL SCH (08:50)
[2020-03-16] MEDS: ISOSORBIDE MONONITRATE ER 30 MG TAB.ER.24H PO SCH (08:50)
[2020-03-16] MEDS ORDERED: LEVOFLOXACIN 750MG-D5W PMX 750 MG in DEXTROSE/WATER 1 150ML.BAG IVPB SCH (09:00)
[2020-03-16] MEDS: PANTOPRAZOLE 40 MG/10 ML VIAL IVP SCH ×2 (09:05→20:45)
[2020-03-16] MEDS: METOPROLOL TARTRATE 50 MG TAB PO SCH ×2 (09:11→20:45)
[2020-03-16] MEDS: FUROSEMIDE 10 MG/ML 4 ML VIAL IV SCH (09:11)
[2020-03-16] MEDS: ALPRAZolam 0.25 MG TAB PO PRN ×2 (11:34→18:20)
[2020-03-16 11:44] LABS: Glucose,Whole Blood 88 mg/dL (75-99)
--- NOTE | 2020-03-16 12:13 | P.PN ---
Subjective Progress Note Date: 03/16/20 Principal diagnosis: Acute GI bleeding This is a 74-year-old white male with history of multiple medical problems, I saw this patient recently for cold 19 pneumonitis. I also saw the patient for right hip fracture requiring surgery and the fracture was secondary to fall. Patient was eventually discharged to [facility] on the abbasi. And he was brought in this morning mostly complaining of bloody stools, blood-tinged sputum, and hematuria. Yesterday his hemoglobin was 6.8, however today his hemoglobin was noted to be as low as 5.3 on admission. Patient was on Eliquis for atrial fibrillation, and upon evaluation in the ER, patient was placed on Kcentra, transfused a total of 2 units of packed RBCs so far, and his Eliquis was placed on hold. The patient is not a great historian, however he denies any chest pain, denies any fever, no chills, he had occasional episodes of blood-tinged sputum, denies any nausea vomiting abdominal pain. 2 units of packed RBCs were given since admission, repeat hemoglobin is pending. Reviewing his last admission, patient was discharged on 03/09, he had the right in situ screw fixation a nondisplaced right femoral neck fracture. His other medical problems included hypoxic respiratory failure secondary to chronic diastolic dysfunction, severe pulmonary hypertension, covid 19 pneumonitis, diabetes, hypertension, chronic hypoxic respiratory failure secondary to COPD, normally he is on option at 2 L. And he is also known to have history of cognitive impairment/dementia. Reevaluated today on 03/16/20, patient remains in the ICU. Patient dropped his hemoglobin down to 6.8 today. Continues to have intermittent episodes of maroon colored stools. Patient is supposed to be receiving 1 unit of packed RBCs today. Remains on IV fluid at KVO, oxygen at 4 L/m and his O2 saturation is 100%. Remains on empiric antibiotics in the form of Zosyn and Levaquin. Patient had a marginal urine output hence I have recommended after he receives the blood transfusion to be given at least 40 mg of Lasix IV push 1. So far the patient has received 3 units of packed RBCs since admission. Electrolytes are normal BUN is 51 creatinine 2.10 WBC count is 6.9. Chest x-ray continues to show bilateral pleural effusions, right midlung and right lower lobe opacity, patient had recent pneumonia secondary to Covid 19 pneumonitis. Objective - Vital Signs Vital signs: Vital Signs Temp 97.5 F L 03/16/20 11:18 Pulse 65 03/16/20 11:18 Resp 16 03/16/20 11:18 BP 131/68 03/16/20 11:18 Pulse Ox 97 03/16/20 11:18 Intake & Output 03/15/20 03/16/20 03/16/20 18:59 06:59 18:59 Intake Total 1060 520 550 Output Total 930 505 265 Balance 130 15 285 Weight 67.132 kg 73.4 kg 73.4 kg Intake: IV 220 0.9 20 Levofloxacin 750Mg-D5w 100 Pmx 750 mg In Dextrose/ Water 1 150ml.bag @ 100 mls/hr IVPB Q24H JN Rx#: [id number] Piperacillin-Tazobactam 3 100 .375 gm In Sodium Chloride 0.9% 100 ml @ 25 mls/hr IVPB Q8HR JN Rx# :[id number] Intake, IV Titration 390 280 20 Amount Lactated Ringers 1,000 ml 140 @ 20 mls/hr IV .Q24H JN Rx#:[id number] Levofloxacin 750Mg-D5w 150 Pmx 750 mg In Dextrose/ Water 1 150ml.bag @ 100 mls/hr IVPB ONCE STA Rx#: [id number] Piperacillin-Tazobactam 3 100 .375 gm In Sodium Chloride 0.9% 100 ml @ 200 mls/hr IVPB ONCE STA Rx#:[id number] Piperacillin-Tazobactam 3 100 .375 gm In Sodium Chloride 0.9% 100 ml @ 25 mls/hr IVPB Q8HR JN Rx# :[id number] Sodium Chloride 0.9% 1, 180 20 000 ml @ 100 mls/hr IV . Q10H STA Rx#:[id number] Oral 50 240 Blood Product 620 310 Rc As-1 Unit 310 [id number] Rc As-3 Unit 310 [id number] Rc As-3 Unit 310 [id number] Output: Urine 930 505 265 Other: Voiding Method Indwelling Catheter Indwelling Catheter Indwelling Catheter - Exam GENERAL EXAM: Awake, alert, 74-year-old male patient, on 4 L O2, and his O2 saturation is 100%. HEAD: Normocephalic/atraumatic. EYES: Normal reaction of pupils, equal size. Conjunctiva pink, sclera white. NOSE: Clear with pink turbinates. THROAT: No erythema or exudates. NECK: No masses, no JVD, no thyroid enlargement, no adenopathy. CHEST: No chest wall deformity. Symmetrical expansion. LUNGS: Equal air entry with few scattered rhonchi, crackles at the bases CVS: Regular rate and rhythm, normal S1 and S2, no gallops, no murmurs, no rubs ABDOMEN: Soft, nontender. No hepatosplenomegaly, normal bowel sounds, no guarding or rigidity. EXTREMITIES: No clubbing, no cyanosis, 2+ pulses and upper and lower extremities. Missing first and second digits of the left hand MUSCULOSKELETAL: Muscle strength and tone normal. SPINE: No scoliosis or deformity SKIN: No rashes CENTRAL NERVOUS SYSTEM: More awake today, follow simple instructions, alert oriented 3. - Labs CBC & Chem 7: 03/16/20 04:49 03/16/20 04:49 Labs: Abnormal Lab Results - Last 24 Hours (Table) 03/15/20 03/15/20 03/15/20 Range/Units 06:35 15:08 20:16 RBC 2.68 L (4.30-5.90) m/uL Hgb 7.1 L D (13.0-17.5) gm/dL Hct 23.0 L (39.0-53.0) % MCHC 30.8 L (31.0-37.0) g/dL RDW 18.8 H (11.5-15.5) % Lymphocytes # (1.0-4.8) k/uL Carbon Dioxide (22-30) mmol/L BUN (9-20) mg/dL Creatinine (0.66-1.25) mg/dL Glucose (74-99) mg/dL POC Glucose (mg/dL) 122 H (75-99) mg/dL Calcium (8.4-10.2) mg/dL Crossmatch See Detail 03/15/20 03/15/20 03/16/20 Range/Units 21:09 22:33 04:49 RBC 2.74 L 2.55 L (4.30-5.90) m/uL Hgb 7.0 L 6.8 L* (13.0-17.5) gm/dL Hct 23.4 L 22.1 L (39.0-53.0) % MCHC 30.0 L 30.9 L (31.0-37.0) g/dL RDW 19.0 H 18.8 H (11.5-15.5) % Lymphocytes # 0.9 L (1.0-4.8) k/uL Carbon Dioxide (22-30) mmol/L BUN (9-20) mg/dL Creatinine (0.66-1.25) mg/dL Glucose (74-99) mg/dL POC Glucose (mg/dL) 127 H (75-99) mg/dL Calcium (8.4-10.2) mg/dL Crossmatch 03/16/20 03/16/20 03/16/20 Range/Units 04:49 05:35 05:45 RBC (4.30-5.90) m/uL Hgb (13.0-17.5) gm/dL Hct (39.0-53.0) % MCHC (31.0-37.0) g/dL RDW (11.5-15.5) % Lymphocytes # (1.0-4.8) k/uL Carbon Dioxide 31 H (22-30) mmol/L BUN 51 H (9-20) mg/dL Creatinine 2.10 H (0.66-1.25) mg/dL Glucose 43 L* (74-99) mg/dL POC Glucose (mg/dL) 56 L 182 H (75-99) mg/dL Calcium 7.9 L (8.4-10.2) mg/dL Crossmatch Microbiology - Last 24 Hours (Table) 03/15/20 06:35 Blood Culture - Preliminary Blood No Growth after 24 hours Assessment and Plan Assessment: Impression: Acute GI bleeding, likely lower GI bleed most likely secondary to diverticular disease, worsened or exacerbated by the fact that the patient is on Eliquis. Patient is scheduled to undergo EGD today, and possible colonoscopy tomorrow. Recent history of covid 19 infection Severe pulmonary hypertension Chronic hypoxic respiratory failure secondary to COPD, chronic diastolic congestive heart failure, and Covid 19 pneumonitis. Severe anemia secondary to GI bleeding Chronic atrial fibrillation Acute on chronic renal failure History of dementia Type 2 diabetes Benign essential hypertension Dyslipidemia Severe COPD, oxygen dependent, quit smoking 3 years ago. Medical debility and deconditioning secondary to multiple comorbidities. Recommendation: Transfuse patient with a 1 unit of packed RBCs today for hemoglobin of 6.8. Await EGD findings, patient is scheduled to have EGD today, and possible colonoscopy tomorrow. Continue to hold anticoagulation treatment. Continue Protonix. Transfuse for hemoglobin below 7. Resume his previous dose of Lasix. Continue empiric antibiotics. We'll continue to follow. Possibly transfer out of the ICU in the next 24 hours Time with Patient: Less than 30
[2020-03-16 13:54] LABS: Anisocytosis Slight; HCT 25.6 % (39.0-53.0); Hypochromasia Marked; MCH 27.2 pg (25.0-35.0); MCHC 31.4 g/dL (31.0-37.0); MCV 86.6 fL (80.0-100.0); Mean Platelet Volume 8.3; Platelet Count 171 k/uL (150-450); Poikilocytosis Moderate; RBC 2.96 m/uL (4.30-5.90); RDW 18.7 % (11.5-15.5); WBC 7.1 k/uL (3.8-10.6)
--- NOTE | 2020-03-16 18:06 | P.PN ---
Subjective Progress Note Date: 03/16/20 Hospital course:74-year-old male resident currently at [facility] subacute rehab ,known to the practice with history of severe pulmonary hypertension, hypertension hyperlipidemia diabetes mellitus type 2 former smoker anxiety COPD stage III chronic renal insufficiency, recent pneumonia, early dementia (Montral cognitive scoring at [facility] 11 out of 30), recent right hip in situ screw fixation for nondisplaced right transcervical femoral neck fracture- on eliquis, transferred to the ER with complaints of rectal bleeding, maroon with blood clots. Hemoglobin yesterday reported from the ER at 6.8, on arrival 5.3, hypoxic, requiring a nonrebreather. Denies abdominal pain, complains of right hip and rib pain. No hemoptysis, no hematochezia. In the ER patient received K Centra two units of packed RBCs, with Eliquis placed on hold. Chest x-ray reporting increased infiltrate on the right lung worsening from prior x- ray. Zosyn, Levaquin initiated for potential H Pneumonia. INR 1.2, BUN 48, creatinine 2.18. CO2 32. Troponin 0.032. Denies chest pain, palpitations , ox ygen has been weaned down to 4 L nasal cannula .Poor historian. GI and pulmonary/fermenter helper consulted. 03/16/20 rectal bleeding decreasing, staff reports maroon stools times one with few clots today. Hemoglobin 6.8, received 1 unit of packed RBC. Evaluated by GI with no EGD recommended at this time. Creatinine trending down to 2.1. Continues on empiric antibiotics of Zosyn and Levaquin. Repeat coronavirus reporting negative. Chest x-ray reporting persistent cardiomegaly, central vascular congestion with bilateral pleural effusions; small to moderate right pleural effusion with right mid to lower lung acute infiltrate/atelectasis, more prominent compared to yesterday. Maintaining O2 sats in the high 90s to 100% on 4 L nasal cannula. Denies chest pain, palpitations or shortness of breath. Objective - Vital Signs Vital signs: Vital Signs Temp 97.6 F 03/16/20 12:00 Pulse 74 03/16/20 17:00 Resp 19 03/16/20 17:00 BP 122/61 03/16/20 17:00 Pulse Ox 93 L 03/16/20 17:00 Intake & Output 03/15/20 03/16/20 03/16/20 18:59 06:59 18:59 Intake Total 1060 520 750 Output Total 930 505 665 Balance 130 15 85 Weight 67.132 kg 73.4 kg 73.4 kg Intake: IV 420 0.9 120 Levofloxacin 750Mg-D5w 100 Pmx 750 mg In Dextrose/ Water 1 150ml.bag @ 100 mls/hr IVPB Q24H JN Rx#: [id number] Piperacillin-Tazobactam 3 200 .375 gm In Sodium Chloride 0.9% 100 ml @ 25 mls/hr IVPB Q8HR JN Rx# :[id number] Intake, IV Titration 390 280 20 Amount Lactated Ringers 1,000 ml 140 @ 20 mls/hr IV .Q24H JN Rx#:[id number] Levofloxacin 750Mg-D5w 150 Pmx 750 mg In Dextrose/ Water 1 150ml.bag @ 100 mls/hr IVPB ONCE STA Rx#: [id number] Piperacillin-Tazobactam 3 100 .375 gm In Sodium Chloride 0.9% 100 ml @ 200 mls/hr IVPB ONCE STA Rx#:[id number] Piperacillin-Tazobactam 3 100 .375 gm In Sodium Chloride 0.9% 100 ml @ 25 mls/hr IVPB Q8HR JN Rx# :[id number] Sodium Chloride 0.9% 1, 180 20 000 ml @ 100 mls/hr IV . Q10H STA Rx#:[id number] Oral 50 240 Blood Product 620 310 Rc As-1 Unit 310 [id number] Rc As-3 Unit 310 [id number] Rc As-3 Unit 310 [id number] Output: Urine 930 505 665 Other: Voiding Method Indwelling Catheter Indwelling Catheter Indwelling Catheter - Exam General: Sitting up in bed, no acute distress HEENT: [PERRL. EOMI. No pharyngeal erythema or exudate. Oral mucosa moist. Neck: [No adenopathy. No JVD Cardiac: [Heart regular in rate and rhythm. No S3. No S4. No clicks, rubs. No murmur. Lungs: Bilateral bases diminished, occasional scattered coarse rhonchi, few bibasilar crackles Abdomen: [Soft, nontender,No mass. No organomegaly. Positive Bowel sounds present. Extremes: Right hip tender, sensation grossly intact, positive edema bilateral lower extremities, no clubbing, no cyanosis, positive pulses Skin: left hand with first and second digit missing .No rash.] Neurologic: [No lateralizing deficits. CN II - XII grossly intact.] - Labs CBC & Chem 7: 03/16/20 13:25 03/16/20 04:49 Labs: Abnormal Lab Results - Last 24 Hours (Table) 03/15/20 03/15/20 03/15/20 Range/Units 06:35 20:16 21:09 RBC 2.74 L (4.30-5.90) m/uL Hgb 7.0 L (13.0-17.5) gm/dL Hct 23.4 L (39.0-53.0) % MCHC 30.0 L (31.0-37.0) g/dL RDW 19.0 H (11.5-15.5) % Lymphocytes # (1.0-4.8) k/uL Carbon Dioxide (22-30) mmol/L BUN (9-20) mg/dL Creatinine (0.66-1.25) mg/dL Glucose (74-99) mg/dL POC Glucose (mg/dL) 122 H (75-99) mg/dL Calcium (8.4-10.2) mg/dL Crossmatch See Detail 03/15/20 03/16/20 03/16/20 Range/Units 22:33 04:49 04:49 RBC 2.55 L (4.30-5.90) m/uL Hgb 6.8 L* (13.0-17.5) gm/dL Hct 22.1 L (39.0-53.0) % MCHC 30.9 L (31.0-37.0) g/dL RDW 18.8 H (11.5-15.5) % Lymphocytes # 0.9 L (1.0-4.8) k/uL Carbon Dioxide 31 H (22-30) mmol/L BUN 51 H (9-20) mg/dL Creatinine 2.10 H (0.66-1.25) mg/dL Glucose 43 L* (74-99) mg/dL POC Glucose (mg/dL) 127 H (75-99) mg/dL Calcium 7.9 L (8.4-10.2) mg/dL Crossmatch 03/16/20 03/16/20 03/16/20 Range/Units 05:35 05:45 13:25 RBC 2.96 L (4.30-5.90) m/uL Hgb 8.0 L (13.0-17.5) gm/dL Hct 25.6 L (39.0-53.0) % MCHC (31.0-37.0) g/dL RDW 18.7 H (11.5-15.5) % Lymphocytes # (1.0-4.8) k/uL Carbon Dioxide (22-30) mmol/L BUN (9-20) mg/dL Creatinine (0.66-1.25) mg/dL Glucose (74-99) mg/dL POC Glucose (mg/dL) 56 L 182 H (75-99) mg/dL Calcium (8.4-10.2) mg/dL Crossmatch Microbiology - Last 24 Hours (Table) 03/15/20 06:35 Blood Culture - Preliminary Blood No Growth after 24 hours Assessment and Plan Assessment: -Acute GI bleed, in a patient on Eliquis -Acute severe blood loss anemia secondary to the above -Acute on chronic hypoxic respiratory failure secondary to the above; wears 2 L at home -Recent right in situ screw fixation for nondisplaced right transcervical femoral neck fracture, status post fall -Chronic CHF, diastolic dysfunction, EF 50-55% -Severe pulmonary hypertension -Recent Covid 19 pneumonia, repeat coronavirus testing reported negative -Acute on chronic renal failure -Diabetes mellitus -Hypertension -Chronic atrial fibrillation -Dementia,Cognitive impairment, recent [facility] cognitive assessment at [facility] reported 11 out of 30 - prior nicotine dependence -Dyslipidemia -Medical debility -No Code, No CPR, No Intubation Plan: Continue on current medication regime ,monitoring and symptomatic treatment. Evaluated by a GI with no EGD recommended at this time. One unit of packed RBCs ordered. Continue holding Eliquis. Maintain on PPI.. Nebulized bronchodilators. Follow closely with GI/fermenter helper. Prognosis guarded given multiple complex medical issues. The impression and plan of care has been dictated as directed. : I performed a history and examination of this patient, discussed the same with the dictator. I agree with the dictator's note ,documented as a scribe. Any additional findings or plans will be noted.
[2020-03-16 18:15] LABS: Glucose,Whole Blood 115 mg/dL (75-99)
--- NOTE | 2020-03-16 19:35 | P.PN ---
Subjective Progress Note Date: 03/16/20 Principal diagnosis: Blood per rectum, anemia acute blood loss Patient is seen lying in bed today with 1 episode of maroon-colored stool. Hemoglobin 6.8 this morning and 8 after transfusion of an additional unit of packed red blood cells. Objective - Vital Signs Vital signs: Vital Signs Temp 97.5 F L 03/16/20 11:18 Pulse 65 03/16/20 11:18 Resp 16 03/16/20 11:18 BP 131/68 03/16/20 11:18 Pulse Ox 97 03/16/20 11:18 Intake & Output 03/15/20 03/16/20 03/16/20 18:59 06:59 18:59 Intake Total 1060 520 550 Output Total 930 505 265 Balance 130 15 285 Weight 67.132 kg 73.4 kg 73.4 kg Intake: IV 220 0.9 20 Levofloxacin 750Mg-D5w 100 Pmx 750 mg In Dextrose/ Water 1 150ml.bag @ 100 mls/hr IVPB Q24H JN Rx#: [id number] Piperacillin-Tazobactam 3 100 .375 gm In Sodium Chloride 0.9% 100 ml @ 25 mls/hr IVPB Q8HR JN Rx# :[id number] Intake, IV Titration 390 280 20 Amount Lactated Ringers 1,000 ml 140 @ 20 mls/hr IV .Q24H JN Rx#:[id number] Levofloxacin 750Mg-D5w 150 Pmx 750 mg In Dextrose/ Water 1 150ml.bag @ 100 mls/hr IVPB ONCE STA Rx#: [id number] Piperacillin-Tazobactam 3 100 .375 gm In Sodium Chloride 0.9% 100 ml @ 200 mls/hr IVPB ONCE STA Rx#:[id number] Piperacillin-Tazobactam 3 100 .375 gm In Sodium Chloride 0.9% 100 ml @ 25 mls/hr IVPB Q8HR JN Rx# :[id number] Sodium Chloride 0.9% 1, 180 20 000 ml @ 100 mls/hr IV . Q10H STA Rx#:[id number] Oral 50 240 Blood Product 620 310 Rc As-1 Unit 310 [id number] Rc As-3 Unit 310 [id number] Rc As-3 Unit 310 [id number] Output: Urine 930 505 265 Other: Voiding Method Indwelling Catheter Indwelling Catheter Indwelling Catheter - Exam On physical examination, patient appears comfortable in no apparent distress. HEAD: Normocephalic, atraumatic. EYES: No scleral icterus. No conjunctival injection. MOUTH: No lesions, tongue midline. NECK: Trachea midline, no gross abnormalities. . ABDOMEN: Soft, nontender to palpation. Bowel sounds are positive. No organomegaly. No guarding or rigidity. EXTREMITIES: No pedal edema. SKIN: No rashes, no jaundice. NEUROLOGIC: Alert and oriented to person but somewhat lethargic. No focal de ficits. - Labs CBC & Chem 7: 03/16/20 13:25 03/16/20 04:49 Labs: Abnormal Lab Results - Last 24 Hours (Table) 03/15/20 03/15/20 03/15/20 Range/Units 06:35 15:08 20:16 RBC 2.68 L (4.30-5.90) m/uL Hgb 7.1 L D (13.0-17.5) gm/dL Hct 23.0 L (39.0-53.0) % MCHC 30.8 L (31.0-37.0) g/dL RDW 18.8 H (11.5-15.5) % Lymphocytes # (1.0-4.8) k/uL Carbon Dioxide (22-30) mmol/L BUN (9-20) mg/dL Creatinine (0.66-1.25) mg/dL Glucose (74-99) mg/dL POC Glucose (mg/dL) 122 H (75-99) mg/dL Calcium (8.4-10.2) mg/dL Crossmatch See Detail 03/15/20 03/15/20 03/16/20 Range/Units 21:09 22:33 04:49 RBC 2.74 L 2.55 L (4.30-5.90) m/uL Hgb 7.0 L 6.8 L* (13.0-17.5) gm/dL Hct 23.4 L 22.1 L (39.0-53.0) % MCHC 30.0 L 30.9 L (31.0-37.0) g/dL RDW 19.0 H 18.8 H (11.5-15.5) % Lymphocytes # 0.9 L (1.0-4.8) k/uL Carbon Dioxide (22-30) mmol/L BUN (9-20) mg/dL Creatinine (0.66-1.25) mg/dL Glucose (74-99) mg/dL POC Glucose (mg/dL) 127 H (75-99) mg/dL Calcium (8.4-10.2) mg/dL Crossmatch 03/16/20 03/16/20 03/16/20 Range/Units 04:49 05:35 05:45 RBC (4.30-5.90) m/uL Hgb (13.0-17.5) gm/dL Hct (39.0-53.0) % MCHC (31.0-37.0) g/dL RDW (11.5-15.5) % Lymphocytes # (1.0-4.8) k/uL Carbon Dioxide 31 H (22-30) mmol/L BUN 51 H (9-20) mg/dL Creatinine 2.10 H (0.66-1.25) mg/dL Glucose 43 L* (74-99) mg/dL POC Glucose (mg/dL) 56 L 182 H (75-99) mg/dL Calcium 7.9 L (8.4-10.2) mg/dL Crossmatch Microbiology - Last 24 Hours (Table) 03/15/20 06:35 Blood Culture - Preliminary Blood No Growth after 24 hours Assessment and Plan (1) Anemia associated with acute blood loss Narrative/Plan: 74-year-old male with multiple medical comorbidities who presented to the hospital due to findings of anemia on laboratory evaluation with patient's having reports of blood per rectum, hematuria and hemoptysis. Recent hospitalization with repair of right hip fracture as well as treatment for the novel coronavirus. Signs of lower GI bleed, with suspicion for possible diverticular bleed, differential also includes AVM, history of colorectal ulcer, peptic ulcer disease or other etiology, likely exacerbated in the setting of anticoagulation therapy. Current Visit: Yes Status: Acute Code(s): D62 - ACUTE POSTHEMORRHAGIC ANEMIA SNOMED Code(s): 590200618 (2) GI bleed Current Visit: Yes Status: Acute Code(s): K92.2 - GASTROINTESTINAL HEMORRHAGE, UNSPECIFIED SNOMED Code(s): 55971443 Plan: Supportive care Okay to initiate liquid diet Continue to monitor hemoglobin and hematocrit and transfuse as needed Protonix 40 mg twice daily Continue to hold anticoagulation therapy Continue to monitor for signs or symptoms of GI bleeding Continue other medical management per primary team and the rn integrity service We will continue to monitor, decision on endoscopic evaluation pending clinical course Thank you for allowing us to participate in the care of the patient
[2020-03-16] MEDS: INSULIN DETEMIR (LEVEMIR) 100 UNIT/ML SYR SQ SCH (20:45)
[2020-03-16] MEDS: ATORVASTATIN 20 MG TAB PO SCH (20:45)
[2020-03-16] MEDS: HYDROcodone/APAP 5-325MG 1 EACH TAB PO PRN (23:40)
[2020-03-17 02:34] LABS: Glucose,Whole Blood 101 mg/dL (75-99)
[2020-03-17 04:57] LABS: Anisocytosis Slight; HCT 26.8 % (39.0-53.0); HGB 8.3 gm/dL (13.0-17.5); Hypochromasia Marked; MCH 27.3 pg (25.0-35.0); Mean Platelet Volume 8.5; Platelet Count 187 k/uL (150-450); Poikilocytosis Moderate; RBC 3.05 m/uL (4.30-5.90); RDW 18.7 % (11.5-15.5); WBC 6.7 k/uL (3.8-10.6)
[2020-03-17 05:20] LABS: Albumin 2.4 g/dL (3.5-5.0); Calcium 8.1 mg/dL (8.4-10.2); Potassium 3.9 mmol/L (3.5-5.1); Total Bilirubin 0.5 mg/dL (0.2-1.3); Total Protein 4.9 g/dL (6.3-8.2)
[2020-03-17] MEDS: hydrALAZINE HCL 25 MG TAB PO SCH ×3 (05:45→20:10)
--- NOTE | 2020-03-17 07:36 | XR ---
EXAMINATION TYPE: XR chest 1V portable DATE OF EXAM: 03/17/2020 COMPARISON: 03/16/2020 HISTORY: Follow-up for pneumonia TECHNIQUE: Single frontal view of the chest is obtained. FINDINGS: There is a worsening moderate right pleural effusion and associated right basilar airspace disease. Minimal medial left retrocardiac airspace disease obscures the medial left hemidiaphragm ana rder. Patient rotation artificially widens the superior mediastinum. Mild central pulmonary vascular congestion. Mildly displaced right inferior rib fractures are redemonstrated. Enlarged cardiomediasti nal silhouette is seen. Very trace left pleural effusion blunts the costophrenic angle. IMPRESSION: Worsening fluid overload with now moderate layering right pleural effusion and trace lef t pleural effusion with associated airspace disease, likely atelectasis.
[2020-03-17] MEDS: ALPRAZolam 0.25 MG TAB PO PRN ×3 (07:38→20:10)
[2020-03-17] MEDS: PIPERACILLIN-TAZOBACTAM 3.375 GM in SODIUM CHLORIDE 0.9% 100 ML IVPB SCH ×2 (07:39→15:15)
[2020-03-17] MEDS: PANTOPRAZOLE 40 MG/10 ML VIAL IVP SCH ×2 (07:59→20:09)
[2020-03-17] MEDS: LINAGLIPTIN 5 MG TABLET PO SCH (07:59)
[2020-03-17] MEDS: LIDOCAINE 5% PATCH TOPICAL SCH (07:59)
[2020-03-17] MEDS: buPROPion XL 150 MG TAB.ER.24H PO SCH (07:59)
[2020-03-17] MEDS: FUROSEMIDE 10 MG/ML 4 ML VIAL IV SCH ×3 (08:00→20:09)
[2020-03-17] MEDS: ESCITALOPRAM 10 MG TAB PO SCH (08:00)
[2020-03-17] MEDS: MAGNESIUM OXIDE 400 MG TAB PO SCH (08:00)
[2020-03-17] MEDS: METOPROLOL TARTRATE 50 MG TAB PO SCH ×2 (09:30→20:10)
[2020-03-17] MEDS: ISOSORBIDE MONONITRATE ER 30 MG TAB.ER.24H PO SCH (09:30)
[2020-03-17 11:43] LABS: Glucose,Whole Blood 133 mg/dL (75-99)
--- NOTE | 2020-03-17 11:55 | P.PN ---
Subjective Progress Note Date: 03/17/20 Principal diagnosis: Acute GI bleeding This is a 74-year-old white male with history of multiple medical problems, I saw this patient recently for cold 19 pneumonitis. I also saw the patient for right hip fracture requiring surgery and the fracture was secondary to fall. Patient was eventually discharged to [facility] on the abbasi. And he was brought in this morning mostly complaining of bloody stools, blood-tinged sputum, and hematuria. Yesterday his hemoglobin was 6.8, however today his hemoglobin was noted to be as low as 5.3 on admission. Patient was on Eliquis for atrial fibrillation, and upon evaluation in the ER, patient was placed on Kcentra, transfused a total of 2 units of packed RBCs so far, and his Eliquis was placed on hold. The patient is not a great historian, however he denies any chest pain, denies any fever, no chills, he had occasional episodes of blood-tinged sputum, denies any nausea vomiting abdominal pain. 2 units of packed RBCs were given since admission, repeat hemoglobin is pending. Reviewing his last admission, patient was discharged on 03/09, he had the right in situ screw fixation a nondisplaced right femoral neck fracture. His other medical problems included hypoxic respiratory failure secondary to chronic diastolic dysfunction, severe pulmonary hypertension, covid 19 pneumonitis, diabetes, hypertension, chronic hypoxic respiratory failure secondary to COPD, normally he is on option at 2 L. And he is also known to have history of cognitive impairment/dementia. Reevaluated today on 03/16/20, patient remains in the ICU. Patient dropped his hemoglobin down to 6.8 today. Continues to have intermittent episodes of maroon colored stools. Patient is supposed to be receiving 1 unit of packed RBCs today. Remains on IV fluid at KVO, oxygen at 4 L/m and his O2 saturation is 100%. Remains on empiric antibiotics in the form of Zosyn and Levaquin. Patient had a marginal urine output hence I have recommended after he receives the blood transfusion to be given at least 40 mg of Lasix IV push 1. So far the patient has received 3 units of packed RBCs since admission. Electrolytes are normal BUN is 51 creatinine 2.10 WBC count is 6.9. Chest x-ray continues to show bilateral pleural effusions, right midlung and right lower lobe opacity, patient had recent pneumonia secondary to Covid 19 pneumonitis. Reevaluated today on 03/17/20, patient remains in the ICU, continues to have intermittent episodes of maroon colored stools. Hemoglobin however is holding, it is 8.3 today, and it was 8.0 yesterday. Patient received a total of 3 units of packed RBCs since admission. EGD was not performed yesterday, no note from gastroenterology today whether patient is going to have EGD or colonoscopy or both. According to the note from yesterday, decision on endoscopic evaluation will be decided upon pending clinical course. In the meantime I will plan to transfer the patient out of the ICU to a regular medical floor, and continue same treatment plan. Objective - Vital Signs Vital signs: Vital Signs Temp 97.7 F 03/17/20 08:00 Pulse 54 L 03/17/20 11:00 Resp 16 03/17/20 11:00 BP 122/62 03/17/20 11:00 Pulse Ox 97 03/17/20 11:00 Intake & Output 03/16/20 03/17/20 03/17/20 18:59 06:59 18:59 Intake Total 770 820 140 Output Total 715 620 190 Balance 55 200 -50 Weight 73.4 kg 73.8 kg Intake: IV 440 240 140 0.9 140 240 40 Levofloxacin 750Mg-D5w 100 Pmx 750 mg In Dextrose/ Water 1 150ml.bag @ 100 mls/hr IVPB Q24H JN Rx#: [id number] Piperacillin-Tazobactam 3 200 100 .375 gm In Sodium Chloride 0.9% 100 ml @ 25 mls/hr IVPB Q8HR JN Rx# :[id number] Intake, IV Titration 20 100 Amount Piperacillin-Tazobactam 3 100 .375 gm In Sodium Chloride 0.9% 100 ml @ 25 mls/hr IVPB Q8HR JN Rx# :[id number] Sodium Chloride 0.9% 1, 20 000 ml @ 100 mls/hr IV . Q10H STA Rx#:[id number] Oral 480 Blood Product 310 Rc As-1 Unit 310 [id number] Output: Urine 715 620 190 Other: Voiding Method Indwelling Catheter Indwelling Catheter Indwelling Catheter # Bowel Movements 1 1 - Exam GENERAL EXAM: Awake, alert, 74-year-old male patient, on few liters nasal cannula, pleasant in no distress HEAD: Normocephalic/atraumatic. EYES: Normal reaction of pupils, equal size. Conjunctiva pink, sclera white. NOSE: Clear with pink turbinates. THROAT: No erythema or exudates. NECK: No masses, no JVD, no thyroid enlargement, no adenopathy. CHEST: No chest wall deformity. Symmetrical expansion. LUNGS: Equal air entry with few scattered rhonchi, crackles at the bases CVS: Regular rate and rhythm, normal S1 and S2, no gallops, no murmurs, no rubs ABDOMEN: Soft, nontender. No hepatosplenomegaly, normal bowel sounds, no guarding or rigidity. EXTREMITIES: No clubbing, no cyanosis, 2+ pulses and upper and lower extremities. Missing first and second digits of the left hand MUSCULOSKELETAL: Muscle strength and tone normal. SPINE: No scoliosis or deformity SKIN: No rashes CENTRAL NERVOUS SYSTEM: More awake today, follow simple instructions, alert oriented 3. - Labs CBC & Chem 7: 03/17/20 04:34 03/17/20 04:34 Labs: Abnormal Lab Results - Last 24 Hours (Table) 03/16/20 03/16/20 03/16/20 Range/Units 04:49 13:25 18:14 RBC 2.55 L 2.96 L (4.30-5.90) m/uL Hgb 6.8 L* 8.0 L (13.0-17.5) gm/dL Hct 22.1 L 25.6 L (39.0-53.0) % MCHC 30.9 L (31.0-37.0) g/dL RDW 18.8 H 18.7 H (11.5-15.5) % Lymphocytes # 0.9 L (1.0-4.8) k/uL BUN (9-20) mg/dL Creatinine (0.66-1.25) mg/dL Glucose (74-99) mg/dL POC Glucose (mg/dL) 115 H (75-99) mg/dL Calcium (8.4-10.2) mg/dL AST (17-59) U/L Total Protein (6.3-8.2) g/dL Albumin (3.5-5.0) g/dL 03/17/20 03/17/20 03/17/20 Range/Units 02:32 04:34 04:34 RBC 3.05 L (4.30-5.90) m/uL Hgb 8.3 L (13.0-17.5) gm/dL Hct 26.8 L (39.0-53.0) % MCHC (31.0-37.0) g/dL RDW 18.7 H (11.5-15.5) % Lymphocytes # (1.0-4.8) k/uL BUN 51 H (9-20) mg/dL Creatinine 2.09 H (0.66-1.25) mg/dL Glucose 64 L (74-99) mg/dL POC Glucose (mg/dL) 101 H (75-99) mg/dL Calcium 8.1 L (8.4-10.2) mg/dL AST 16 L (17-59) U/L Total Protein 4.9 L (6.3-8.2) g/dL Albumin 2.4 L (3.5-5.0) g/dL 03/17/20 Range/Units 11:42 RBC (4.30-5.90) m/uL Hgb (13.0-17.5) gm/dL Hct (39.0-53.0) % MCHC (31.0-37.0) g/dL RDW (11.5-15.5) % Lymphocytes # (1.0-4.8) k/uL BUN (9-20) mg/dL Creatinine (0.66-1.25) mg/dL Glucose (74-99) mg/dL POC Glucose (mg/dL) 133 H (75-99) mg/dL Calcium (8.4-10.2) mg/dL AST (17-59) U/L Total Protein (6.3-8.2) g/dL Albumin (3.5-5.0) g/dL Microbiology - Last 24 Hours (Table) 03/15/20 06:35 Blood Culture - Preliminary Blood No Growth after 48 hours Assessment and Plan Assessment: Impression: Acute GI bleeding, likely lower GI bleed most likely secondary to diverticular disease, worsened or exacerbated by the fact that the patient is on Eliquis. Recent history of covid 19 infection Severe pulmonary hypertension Chronic hypoxic respiratory failure secondary to COPD, chronic diastolic congestive heart failure, and Covid 19 pneumonitis. Severe anemia secondary to GI bleeding Chronic atrial fibrillation Acute on chronic renal failure History of dementia Type 2 diabetes Benign essential hypertension Dyslipidemia Severe COPD, oxygen dependent, quit smoking 3 years ago. Medical debility and deconditioning secondary to multiple comorbidities. Recommendation: Continue present supportive care measures. Continue to monitor serial hemoglobin and hematocrit. Continue to hold anticoagulation treatment. Continue Protonix. Transfuse, if hemoglobin is below 7. Increase Lasix to 40 mg IV push twice a day since his chest x-ray is showing slight worsening of his interstitial edema. Continue empiric antibiotics. We'll continue to follow. Transfer to a regular medical floor today. Time with Patient: Less than 30
--- NOTE | 2020-03-17 13:23 | P.PN ---
Subjective Progress Note Date: 03/17/20 Principal diagnosis: Blood per rectum, anemia acute blood loss Patient is seen lying in bed today with reports of 2 more episodes of maroon- colored blood clots per rectum. Hemoglobin however is stable at 8.3 from 8.0 yesterday. He is tolerating liquid diet. No abdominal pain. Objective - Vital Signs Vital signs: Vital Signs Temp 97.7 F 03/17/20 08:00 Pulse 54 L 03/17/20 11:00 Resp 16 03/17/20 11:00 BP 122/62 03/17/20 11:00 Pulse Ox 97 03/17/20 11:00 Intake & Output 03/16/20 03/17/20 03/17/20 18:59 06:59 18:59 Intake Total 770 820 140 Output Total 715 620 190 Balance 55 200 -50 Weight 73.4 kg 73.8 kg Intake: IV 440 240 140 0.9 140 240 40 Levofloxacin 750Mg-D5w 100 Pmx 750 mg In Dextrose/ Water 1 150ml.bag @ 100 mls/hr IVPB Q24H JN Rx#: [id number] Piperacillin-Tazobactam 3 200 100 .375 gm In Sodium Chloride 0.9% 100 ml @ 25 mls/hr IVPB Q8HR JN Rx# :[id number] Intake, IV Titration 20 100 Amount Piperacillin-Tazobactam 3 100 .375 gm In Sodium Chloride 0.9% 100 ml @ 25 mls/hr IVPB Q8HR JN Rx# :[id number] Sodium Chloride 0.9% 1, 20 000 ml @ 100 mls/hr IV . Q10H STA Rx#:[id number] Oral 480 Blood Product 310 Rc As-1 Unit 310 [id number] Output: Urine 715 620 190 Other: Voiding Method Indwelling Catheter Indwelling Catheter Indwelling Catheter # Bowel Movements 1 1 - Exam On physical examination, patient appears comfortable in no apparent distress. HEAD: Normocephalic, atraumatic. EYES: No scleral icterus. No conjunctival injection. MOUTH: No lesions, tongue midline. NECK: Trachea midline, no gross abnormalities. . ABDOMEN: Soft, nontender to palpation. Bowel sounds are positive. No organom egaly. No guarding or rigidity. EXTREMITIES: No pedal edema. SKIN: No rashes, no jaundice. NEUROLOGIC: Alert and oriented to person and more awake today. No focal deficits. - Labs CBC & Chem 7: 03/17/20 04:34 03/17/20 04:34 Labs: Abnormal Lab Results - Last 24 Hours (Table) 03/16/20 03/16/20 03/16/20 Range/Units 04:49 13:25 18:14 RBC 2.55 L 2.96 L (4.30-5.90) m/uL Hgb 6.8 L* 8.0 L (13.0-17.5) gm/dL Hct 22.1 L 25.6 L (39.0-53.0) % MCHC 30.9 L (31.0-37.0) g/dL RDW 18.8 H 18.7 H (11.5-15.5) % Lymphocytes # 0.9 L (1.0-4.8) k/uL BUN (9-20) mg/dL Creatinine (0.66-1.25) mg/dL Glucose (74-99) mg/dL POC Glucose (mg/dL) 115 H (75-99) mg/dL Calcium (8.4-10.2) mg/dL AST (17-59) U/L Total Protein (6.3-8.2) g/dL Albumin (3.5-5.0) g/dL 03/17/20 03/17/20 03/17/20 Range/Units 02:32 04:34 04:34 RBC 3.05 L (4.30-5.90) m/uL Hgb 8.3 L (13.0-17.5) gm/dL Hct 26.8 L (39.0-53.0) % MCHC (31.0-37.0) g/dL RDW 18.7 H (11.5-15.5) % Lymphocytes # (1.0-4.8) k/uL BUN 51 H (9-20) mg/dL Creatinine 2.09 H (0.66-1.25) mg/dL Glucose 64 L (74-99) mg/dL POC Glucose (mg/dL) 101 H (75-99) mg/dL Calcium 8.1 L (8.4-10.2) mg/dL AST 16 L (17-59) U/L Total Protein 4.9 L (6.3-8.2) g/dL Albumin 2.4 L (3.5-5.0) g/dL 03/17/20 Range/Units 11:42 RBC (4.30-5.90) m/uL Hgb (13.0-17.5) gm/dL Hct (39.0-53.0) % MCHC (31.0-37.0) g/dL RDW (11.5-15.5) % Lymphocytes # (1.0-4.8) k/uL BUN (9-20) mg/dL Creatinine (0.66-1.25) mg/dL Glucose (74-99) mg/dL POC Glucose (mg/dL) 133 H (75-99) mg/dL Calcium (8.4-10.2) mg/dL AST (17-59) U/L Total Protein (6.3-8.2) g/dL Albumin (3.5-5.0) g/dL Microbiology - Last 24 Hours (Table) 03/15/20 06:35 Blood Culture - Preliminary Blood No Growth after 48 hours Assessment and Plan (1) Anemia associated with acute blood loss Narrative/Plan: 74-year-old male with multiple medical comorbidities who presented to the hospital due to findings of anemia on laboratory evaluation with patient's having reports of blood per rectum, hematuria and hemoptysis. Recent hospitalization with repair of right hip fracture as well as treatment for the novel coronavirus. Signs of lower GI bleed, with suspicion for possible diverticular bleed, differential also includes AVM, history of colorectal ulcer, peptic ulcer disease or other etiology, likely exacerbated in the setting of anticoagulation therapy. Current Visit: Yes Status: Acute Code(s): D62 - ACUTE POSTHEMORRHAGIC ANEMIA SNOMED Code(s): 730365411 (2) GI bleed Current Visit: Yes Status: Acute Code(s): K92.2 - GASTROINTESTINAL HEMORRHAGE, UNSPECIFIED SNOMED Code(s): 78446768 Plan: Supportive care Okay for liquid diet Continue to monitor hemoglobin and hematocrit and transfuse as needed Protonix 40 mg twice daily Continue to hold anticoagulation therapy Continue to monitor for signs or symptoms of GI bleeding Continue other medical management per primary team and the pump house technician service We will continue to monitor, decision on endoscopic evaluation pending clinical course Thank you for allowing us to participate in the care of the patient
[2020-03-17 14:32] LABS: Anisocytosis Slight; Basophils % (A) 1 %; Eosinophils # (A) 0.2 k/uL (0-0.7); Eosinophils % (A) 2 %; Hypochromasia Marked; Lymphocytes # (A) 0.6 k/uL (1.0-4.8); Lymphocytes % (A) 8 %; MCH 26.6 pg (25.0-35.0); MCV 88.6 fL (80.0-100.0); Mean Platelet Volume 8.3; Monocytes # (A) 0.5 k/uL (0-1.0); Monocytes % (A) 7 %; Neutrophils # (A) 6.6 k/uL (1.3-7.7); Neutrophils % (A) 81 %; Platelet Count 196 k/uL (150-450); Poikilocytosis Moderate; RBC 3.38 m/uL (4.30-5.90); RDW 18.9 % (11.5-15.5); WBC 8.1 k/uL (3.8-10.6)
[2020-03-17 16:39] LABS: Glucose,Whole Blood 118 mg/dL (75-99)
[2020-03-17] MEDS: HYDROcodone/APAP 5-325MG 1 EACH TAB PO PRN (17:09)
--- NOTE | 2020-03-17 17:44 | P.PN ---
Subjective Progress Note Date: 03/17/20 Hospital course:74-year-old male resident currently at [facility] subacute rehab ,known to the practice with history of severe pulmonary hypertension, hypertension hyperlipidemia diabetes mellitus type 2 former smoker anxiety COPD stage III chronic renal insufficiency, recent pneumonia, early dementia (Montral cognitive scoring at [facility] 11 out of 30), recent right hip in situ screw fixation for nondisplaced right transcervical femoral neck fracture- on eliquis, transferred to the ER with complaints of rectal bleeding, maroon with blood clots. Hemoglobin yesterday reported from the ER at 6.8, on arrival 5.3, hypoxic, requiring a nonrebreather. Denies abdominal pain, complains of right hip and rib pain. No hemoptysis, no hematochezia. In the ER patient received K Centra two units of packed RBCs, with Eliquis placed on hold. Chest x-ray reporting increased infiltrate on the right lung worsening from prior x- ray. Zosyn, Levaquin initiated for potential H Pneumonia. INR 1.2, BUN 48, creatinine 2.18. CO2 32. Troponin 0.032. Denies chest pain, palpitations , ox ygen has been weaned down to 4 L nasal cannula .Poor historian. GI and pulmonary/manager internet consulted. 03/16/20 rectal bleeding decreasing, staff reports maroon stools times one with few clots today. Hemoglobin 6.8, received 1 unit of packed RBC. Evaluated by GI with no EGD recommended at this time. Creatinine trending down to 2.1. Continues on empiric antibiotics of Zosyn and Levaquin. Repeat coronavirus reporting negative. Chest x-ray reporting persistent cardiomegaly, central vascular congestion with bilateral pleural effusions; small to moderate right pleural effusion with right mid to lower lung acute infiltrate/atelectasis, more prominent compared to yesterday. Maintaining O2 sats in the high 90s to 100% on 4 L nasal cannula. Denies chest pain, palpitations or shortness of breath. 03/17/2020 Continues to have rectal bleeding, maroon bowel movements 2 reported, current hemoglobin, increased to 8.3. Denies abdominal pain or cramping. Tolerating clear liquid diet with no nausea or vomiting.chest x- rayreporting worsening fluid overload with moderate layering right pleural effusion, Lasix increased. Maintaining O2 sats in the 90s on 5 L nasal cannula.creatinine stable at 2.09.denies chest pain, palpitations. Objective - Vital Signs Vital signs: Vital Signs Temp 97.5 F L 03/17/20 16:00 Pulse 74 03/17/20 17:00 Resp 21 03/17/20 17:00 BP 129/69 03/17/20 17:00 Pulse Ox 93 L 03/17/20 17:00 Intake & Output 03/16/20 03/17/20 03/17/20 18:59 06:59 18:59 Intake Total 770 820 360 Output Total 715 620 610 Balance 55 200 -250 Weight 73.4 kg 73.8 kg Intake: IV 440 240 360 0.9 140 240 160 Levofloxacin 750Mg-D5w 100 Pmx 750 mg In Dextrose/ Water 1 150ml.bag @ 100 mls/hr IVPB Q24H JN Rx#: [id number] Piperacillin-Tazobactam 3 200 200 .375 gm In Sodium Chloride 0.9% 100 ml @ 25 mls/hr IVPB Q8HR JN Rx# :[id number] Intake, IV Titration 20 100 Amount Piperacillin-Tazobactam 3 100 .375 gm In Sodium Chloride 0.9% 100 ml @ 25 mls/hr IVPB Q8HR JN Rx# :[id number] Sodium Chloride 0.9% 1, 20 000 ml @ 100 mls/hr IV . Q10H STA Rx#:[id number] Oral 480 Blood Product 310 Rc As-1 Unit 310 [id number] Output: Urine 715 620 610 Other: Voiding Method Indwelling Catheter Indwelling Catheter Indwelling Catheter # Bowel Movements 1 2 - Exam General: Sitting up in bed, no acute distress,alert and oriented 2 HEENT: [PERRL. EOMI. No pharyngeal erythema or exudate. Oral mucosa moist. Neck: [No adenopathy. No JVD Cardiac: [Heart regular in rate and rhythm. No S3. No S4. No clicks, rubs. No murmur. Lungs: Bilateral bases diminished, occasional scattered coarse rhonchi, few bibasilar crackles Abdomen: [Soft, nontender,No mass. No organomegaly. no guarding, Positive Bowel sounds present. Extremities: Right hip tender, sensation grossly intact, trace edema bilateral lower extremities, no clubbing, no cyanosis, positive pulses Skin: left hand with first and second digit missing .No rash.] Neurologic: [No lateralizing deficits. CN II - XII grossly intact.] - Labs CBC & Chem 7: 03/17/20 14:19 03/17/20 04:34 Labs: Abnormal Lab Results - Last 24 Hours (Table) 03/16/20 03/17/20 03/17/20 Range/Units 18:14 02:32 04:34 RBC 3.05 L (4.30-5.90) m/uL Hgb 8.3 L (13.0-17.5) gm/dL Hct 26.8 L (39.0-53.0) % MCHC (31.0-37.0) g/dL RDW 18.7 H (11.5-15.5) % Lymphocytes # (1.0-4.8) k/uL BUN (9-20) mg/dL Creatinine (0.66-1.25) mg/dL Glucose (74-99) mg/dL POC Glucose (mg/dL) 115 H 101 H (75-99) mg/dL Calcium (8.4-10.2) mg/dL AST (17-59) U/L Total Protein (6.3-8.2) g/dL Albumin (3.5-5.0) g/dL 03/17/20 03/17/20 03/17/20 Range/Units 04:34 11:42 14:19 RBC 3.38 L (4.30-5.90) m/uL Hgb 9.0 L (13.0-17.5) gm/dL Hct 30.0 L (39.0-53.0) % MCHC 30.0 L (31.0-37.0) g/dL RDW 18.9 H (11.5-15.5) % Lymphocytes # 0.6 L (1.0-4.8) k/uL BUN 51 H (9-20) mg/dL Creatinine 2.09 H (0.66-1.25) mg/dL Glucose 64 L (74-99) mg/dL POC Glucose (mg/dL) 133 H (75-99) mg/dL Calcium 8.1 L (8.4-10.2) mg/dL AST 16 L (17-59) U/L Total Protein 4.9 L (6.3-8.2) g/dL Albumin 2.4 L (3.5-5.0) g/dL 03/17/20 Range/Units 16:37 RBC (4.30-5.90) m/uL Hgb (13.0-17.5) gm/dL Hct (39.0-53.0) % MCHC (31.0-37.0) g/dL RDW (11.5-15.5) % Lymphocytes # (1.0-4.8) k/uL BUN (9-20) mg/dL Creatinine (0.66-1.25) mg/dL Glucose (74-99) mg/dL POC Glucose (mg/dL) 118 H (75-99) mg/dL Calcium (8.4-10.2) mg/dL AST (17-59) U/L Total Protein (6.3-8.2) g/dL Albumin (3.5-5.0) g/dL Microbiology - Last 24 Hours (Table) 03/15/20 06:35 Blood Culture - Preliminary Blood No Growth after 48 hours Assessment and Plan Assessment: -Acute GI bleed, in a patient on Eliquis -Acute severe blood loss anemia secondary to the above -Acute on chronic hypoxic respiratory failure secondary to the above; wears 2 L at home -Recent right in situ screw fixation for nondisplaced right transcervical femoral neck fracture, status post fall -Chronic CHF, diastolic dysfunction, EF 50-55% -Severe pulmonary hypertension -Recent Covid 19 pneumonia, repeat coronavirus testing reported negative -Acute on chronic renal failure -Diabetes mellitus -Hypertension -Chronic atrial fibrillation -Dementia,Cognitive impairment, recent [facility] cognitive assessment at [facility] reported 11 out of 30 - prior nicotine dependence -Dyslipidemia -Medical debility -No Code, No CPR, No Intubation Plan: Continue on current medication regime ,monitoring and symptomatic treatment. Continue holding Eliquis.close monitoring of hemoglobin,creatinine with repeat labs ordered for a.m. Maintain on PPI twice a day.GI reevaluating tomorrow for potential EGD&/or colonoscopy. Nebulized bronchodilators. Cleared by manager internet for transfer out of ICU. The impression and plan of care has been dictated as directed. : I performed a history and examination of this patient, discussed the same with the dictator. I agree with the dictator's note ,documented as a scribe. Any additional findings or plans will be noted.
[2020-03-17] MEDS: INSULIN DETEMIR (LEVEMIR) 100 UNIT/ML SYR SQ SCH (20:10)
[2020-03-17] MEDS: ATORVASTATIN 20 MG TAB PO SCH (20:10)
[2020-03-17 20:37] LABS: Glucose,Whole Blood 139 mg/dL (75-99)
[2020-03-17 21:10] LABS: Anisocytosis Slight; Basophils % (A) 0 %; Eosinophils # (A) 0.2 k/uL (0-0.7); Eosinophils % (A) 3 %; HCT 28.9 % (39.0-53.0); HGB 9.1 gm/dL (13.0-17.5); Hypochromasia Marked; Lymphocytes # (A) 0.8 k/uL (1.0-4.8); Lymphocytes % (A) 11 %; MCH 27.7 pg (25.0-35.0); MCHC 31.5 g/dL (31.0-37.0); MCV 87.8 fL (80.0-100.0); Mean Platelet Volume 7.4; Monocytes # (A) 0.5 k/uL (0-1.0); Monocytes % (A) 7 %; Neutrophils # (A) 5.6 k/uL (1.3-7.7); Neutrophils % (A) 77 %; Platelet Count 169 k/uL (150-450); Poikilocytosis Moderate; RBC 3.29 m/uL (4.30-5.90); RDW 19.1 % (11.5-15.5); WBC 7.2 k/uL (3.8-10.6)
[2020-03-18] MEDS: PIPERACILLIN-TAZOBACTAM 3.375 GM in SODIUM CHLORIDE 0.9% 100 ML IVPB SCH ×3 (00:22→16:14)
[2020-03-18] MEDS: HYDROcodone/APAP 5-325MG 1 EACH TAB PO PRN ×4 (04:13→22:28)
[2020-03-18] MEDS: ALPRAZolam 0.25 MG TAB PO PRN ×3 (04:13→20:29)
[2020-03-18] MEDS: hydrALAZINE HCL 25 MG TAB PO SCH ×3 (04:13→20:29)
[2020-03-18 05:52] LABS: Anisocytosis Slight; Basophils % (A) 1 %; Eosinophils # (A) 0.1 k/uL (0-0.7); Eosinophils % (A) 2 %; HCT 27.7 % (39.0-53.0); HGB 8.5 gm/dL (13.0-17.5); Hypochromasia Marked; Lymphocytes # (A) 0.6 k/uL (1.0-4.8); Lymphocytes % (A) 10 %; MCH 27.2 pg (25.0-35.0); MCHC 30.5 g/dL (31.0-37.0); Mean Platelet Volume 8.5; Monocytes # (A) 0.4 k/uL (0-1.0); Monocytes % (A) 7 %; Neutrophils # (A) 5.2 k/uL (1.3-7.7); Neutrophils % (A) 79 %; Platelet Count 204 k/uL (150-450); Poikilocytosis Moderate; RBC 3.11 m/uL (4.30-5.90); RDW 19.1 % (11.5-15.5); WBC 6.5 k/uL (3.8-10.6)
[2020-03-18 06:22] LABS: Calcium 8.1 mg/dL (8.4-10.2); Potassium 3.5 mmol/L (3.5-5.1)
--- NOTE | 2020-03-18 08:27 | XR ---
EXAMINATION TYPE: XR chest 1V portable DATE OF EXAM: 03/18/2020 HISTORY: Shortness of breath. COMPARISON: 03/17/2020 TECHNIQUE: Single view of the chest is submitted. FINDINGS: Demonstrated are scattered senescent parenchymal change. Scattered patchy airspace and interstitial infiltrates are seen bilaterally right greater than left w ith improved aeration left lower lobe. Persistent moderate right-sided pleural effusion. The heart is stable. Hilar and mediastinal structures are within normal limits. Degenerative changes are seen of the dorsal spine. IMPRESSION: 1. Scattered patchy airspace and interstitial infiltrates are seen bilaterally right greater than le ft with improved aeration left lower lobe. Persistent moderate right-sided pleural effusion.
[2020-03-18] MEDS: LIDOCAINE 5% PATCH TOPICAL SCH (08:58)
[2020-03-18] MEDS: PANTOPRAZOLE 40 MG/10 ML VIAL IVP SCH ×2 (08:58→20:29)
[2020-03-18] MEDS: METOPROLOL TARTRATE 50 MG TAB PO SCH ×2 (08:59→20:29)
[2020-03-18] MEDS: LINAGLIPTIN 5 MG TABLET PO SCH (08:59)
[2020-03-18] MEDS: MAGNESIUM OXIDE 400 MG TAB PO SCH (08:59)
[2020-03-18] MEDS: ISOSORBIDE MONONITRATE ER 30 MG TAB.ER.24H PO SCH (08:59)
[2020-03-18] MEDS: ESCITALOPRAM 10 MG TAB PO SCH (08:59)
[2020-03-18] MEDS: FUROSEMIDE 10 MG/ML 4 ML VIAL IV SCH ×2 (08:59→20:29)
[2020-03-18] MEDS: buPROPion XL 150 MG TAB.ER.24H PO SCH (08:59)
[2020-03-18] MEDS ORDERED: LEVOFLOXACIN 750MG-D5W PMX 750 MG in DEXTROSE/WATER 1 150ML.BAG IVPB SCH (09:00)
--- NOTE | 2020-03-18 09:55 | US ---
EXAMINATION TYPE: US chest DATE OF EXAM: 03/18/2020 COMPARISON: CLINICAL HISTORY: Markings for thoracentesis by pulmonary staff. ICU patient TECHNIQUE: Targeted ultrasound of the posterior lower bilateral hemithoraces EXAM MEASUREMENTS: Right Pleural Effusion pocket size: 10.5 cm Right skin surface to fluid distance: 2.6 cm Left Pleural Effusion pocket size: 6.6 cm Left skin surface to fluid distance: 3.6 cm Right side marked for possible thoracentesis outside the dept. Left side marked for possible thoracentesis outside the dept. Pulmonologists are able to review the images in the patient?s EMR. IMPRESSIONS: As above
--- NOTE | 2020-03-18 11:08 | P.PN ---
Subjective Progress Note Date: 03/18/20 Principal diagnosis: Acute GI bleeding This is a 74-year-old white male with history of multiple medical problems, I saw this patient recently for cold 19 pneumonitis. I also saw the patient for right hip fracture requiring surgery and the fracture was secondary to fall. Patient was eventually discharged to [facility] on the abbasi. And he was brought in this morning mostly complaining of bloody stools, blood-tinged sputum, and hematuria. Yesterday his hemoglobin was 6.8, however today his hemoglobin was noted to be as low as 5.3 on admission. Patient was on Eliquis for atrial fibrillation, and upon evaluation in the ER, patient was placed on Kcentra, transfused a total of 2 units of packed RBCs so far, and his Eliquis was placed on hold. The patient is not a great historian, however he denies any chest pain, denies any fever, no chills, he had occasional episodes of blood-tinged sputum, denies any nausea vomiting abdominal pain. 2 units of packed RBCs were given since admission, repeat hemoglobin is pending. Reviewing his last admission, patient was discharged on 03/09, he had the right in situ screw fixation a nondisplaced right femoral neck fracture. His other medical problems included hypoxic respiratory failure secondary to chronic diastolic dysfunction, severe pulmonary hypertension, covid 19 pneumonitis, diabetes, hypertension, chronic hypoxic respiratory failure secondary to COPD, normally he is on option at 2 L. And he is also known to have history of cognitive impairment/dementia. Reevaluated today on 03/16/20, patient remains in the ICU. Patient dropped his hemoglobin down to 6.8 today. Continues to have intermittent episodes of maroon colored stools. Patient is supposed to be receiving 1 unit of packed RBCs today. Remains on IV fluid at KVO, oxygen at 4 L/m and his O2 saturation is 100%. Remains on empiric antibiotics in the form of Zosyn and Levaquin. Patient had a marginal urine output hence I have recommended after he receives the blood transfusion to be given at least 40 mg of Lasix IV push 1. So far the patient has received 3 units of packed RBCs since admission. Electrolytes are normal BUN is 51 creatinine 2.10 WBC count is 6.9. Chest x-ray continues to show bilateral pleural effusions, right midlung and right lower lobe opacity, patient had recent pneumonia secondary to Covid 19 pneumonitis. Reevaluated today on 03/17/20, patient remains in the ICU, continues to have intermittent episodes of maroon colored stools. Hemoglobin however is holding, it is 8.3 today, and it was 8.0 yesterday. Patient received a total of 3 units of packed RBCs since admission. EGD was not performed yesterday, no note from gastroenterology today whether patient is going to have EGD or colonoscopy or both. According to the note from yesterday, decision on endoscopic evaluation will be decided upon pending clinical course. In the meantime I will plan to transfer the patient out of the ICU to a regular medical floor, and continue same treatment plan. Reevaluated today on 03/18/20, patient remains in the ICU, he is presently an overflow. Doing fairly well, had one maroon stool last night, and he received a total of 3 units of packed RBCs since admission. Patient is feeling better, breathing a lot easier, however he remains on 5 L nasal cannula without O2 saturation of 98%, chest x-ray showed bilateral pleural effusions, ultrasound of the chest showed a good sized right-sided pleural effusion, large enough to be tapped and drained. Considering the patient remains on relatively high FiO2, I would proceed with thoracentesis today on this patient. In the meantime we'll continue present supportive care measures. Chest x-ray ultrasound and labs were all reviewed. No plans by gastroenterology to perform endoscopic evaluation at this point. Objective - Vital Signs Vital signs: Vital Signs Temp 97.4 F L 03/18/20 04:00 Pulse 73 03/18/20 10:00 Resp 14 03/18/20 10:00 BP 109/50 03/18/20 10:00 Pulse Ox 98 03/18/20 10:00 Intake & Output 03/17/20 03/18/20 03/18/20 18:59 06:59 18:59 Intake Total 360 280 140 Output Total 610 875 250 Balance -250 -595 -110 Weight 74.2 kg Intake: IV 360 180 140 0.9 160 180 40 Piperacillin-Tazobactam 3 200 100 .375 gm In Sodium Chloride 0.9% 100 ml @ 25 mls/hr IVPB Q8HR [facility] Rx# :[id number] Intake, IV Titration 100 Amount Piperacillin-Tazobactam 3 100 .375 gm In Sodium Chloride 0.9% 100 ml @ 25 mls/hr IVPB Q8HR [facility] Rx# :[id number] Output: Urine 610 875 250 Other: Voiding Method Indwelling Catheter Indwelling Catheter # Bowel Movements 2 - Exam GENERAL EXAM: Awake, alert, 74-year-old male patient, on 5 liters nasal cannula, pleasant in no distress HEAD: Normocephalic/atraumatic. EYES: Normal reaction of pupils, equal size. Conjunctiva pink, sclera white. NOSE: Clear with pink turbinates. THROAT: No erythema or exudates. NECK: No masses, no JVD, no thyroid enlargement, no adenopathy. CHEST: No chest wall deformity. Symmetrical expansion. LUNGS: Diminished breath sounds at the bases no rhonchi no wheezes. CVS: Regular rate and rhythm, normal S1 and S2, no gallops, no murmurs, no rubs ABDOMEN: Soft, nontender. No hepatosplenomegaly, normal bowel sounds, no guarding or rigidity. EXTREMITIES: No clubbing, no cyanosis, 2+ pulses and upper and lower extremities. Missing first and second digits of the left hand MUSCULOSKELETAL: Muscle strength and tone normal. SPINE: No scoliosis or deformity SKIN: No rashes CENTRAL NERVOUS SYSTEM: Alert and oriented 3, no gross focal neurologic deficits. - Labs CBC & Chem 7: 03/18/20 04:54 03/18/20 04:54 Labs: Abnormal Lab Results - Last 24 Hours (Table) 03/17/20 03/17/20 03/17/20 Range/Units 11:42 14:19 16:37 RBC 3.38 L (4.30-5.90) m/uL Hgb 9.0 L (13.0-17.5) gm/dL Hct 30.0 L (39.0-53.0) % MCHC 30.0 L (31.0-37.0) g/dL RDW 18.9 H (11.5-15.5) % Lymphocytes # 0.6 L (1.0-4.8) k/uL BUN (9-20) mg/dL Creatinine (0.66-1.25) mg/dL POC Glucose (mg/dL) 133 H 118 H (75-99) mg/dL Calcium (8.4-10.2) mg/dL 03/17/20 03/17/20 03/18/20 Range/Units 20:35 21:02 04:54 RBC 3.29 L 3.11 L (4.30-5.90) m/uL Hgb 9.1 L 8.5 L (13.0-17.5) gm/dL Hct 28.9 L 27.7 L (39.0-53.0) % MCHC 30.5 L (31.0-37.0) g/dL RDW 19.1 H 19.1 H (11.5-15.5) % Lymphocytes # 0.8 L 0.6 L (1.0-4.8) k/uL BUN (9-20) mg/dL Creatinine (0.66-1.25) mg/dL POC Glucose (mg/dL) 139 H (75-99) mg/dL Calcium (8.4-10.2) mg/dL 03/18/20 Range/Units 04:54 RBC (4.30-5.90) m/uL Hgb (13.0-17.5) gm/dL Hct (39.0-53.0) % MCHC (31.0-37.0) g/dL RDW (11.5-15.5) % Lymphocytes # (1.0-4.8) k/uL BUN 47 H (9-20) mg/dL Creatinine 2.21 H (0.66-1.25) mg/dL POC Glucose (mg/dL) (75-99) mg/dL Calcium 8.1 L (8.4-10.2) mg/dL Microbiology - Last 24 Hours (Table) 03/15/20 06:35 Blood Culture - Preliminary Blood No Growth after 72 hours Assessment and Plan Assessment: Impression: Acute GI bleeding, likely lower GI bleed most likely secondary to diverticular disease, worsened or exacerbated by the fact that the patient is on Eliquis. Recent history of covid 19 infection Severe pulmonary hypertension Chronic hypoxic respiratory failure secondary to COPD, chronic diastolic congestive heart failure, and Covid 19 pneumonitis. Severe anemia secondary to GI bleeding Chronic atrial fibrillation Acute on chronic renal failure History of dementia Type 2 diabetes Benign essential hypertension Dyslipidemia Severe COPD, oxygen dependent, quit smoking 3 years ago. Medical debility and deconditioning secondary to multiple comorbidities. Bilateral pleural effusions, right more so than left, most likely cardiogenic in nature, hence I plan to perform thoracentesis on the right pleural effusion. Recommendation: Continue present supportive care measures. Continue to monitor serial hemoglobin and hematocrit. Continue to hold anticoagulation treatment. Plan to perform thoracentesis on right sided pleural effusion. Continue Protonix. Transfuse, if hemoglobin is below 7. Continue Lasix. Continue empiric antibiotics. We'll continue to follow. Time with Patient: Less than 30
[2020-03-18 12:17] LABS: Glucose,Whole Blood 102 mg/dL (75-99)
--- NOTE | 2020-03-18 13:36 | P.PN ---
Subjective Progress Note Date: 03/18/20 Hospital course:74-year-old male resident currently at [facility] subacute rehab ,known to the practice with history of severe pulmonary hypertension, hypertension hyperlipidemia diabetes mellitus type 2 former smoker anxiety COPD stage III chronic renal insufficiency, recent pneumonia, early dementia (Montral cognitive scoring at [facility] 11 out of 30), recent right hip in situ screw fixation for nondisplaced right transcervical femoral neck fracture- on eliquis, transferred to the ER with complaints of rectal bleeding, maroon with blood clots. Hemoglobin yesterday reported from the ER at 6.8, on arrival 5.3, hypoxic, requiring a nonrebreather. Denies abdominal pain, complains of right hip and rib pain. No hemoptysis, no hematochezia. In the ER patient received K Centra two units of packed RBCs, with Eliquis placed on hold. Chest x-ray reporting increased infiltrate on the right lung worsening from prior x- ray. Zosyn, Levaquin initiated for potential H Pneumonia. INR 1.2, BUN 48, creatinine 2.18. CO2 32. Troponin 0.032. Denies chest pain, palpitations , ox ygen has been weaned down to 4 L nasal cannula .Poor historian. GI and pulmonary/insurance agents supervisor consulted. 03/16/20 rectal bleeding decreasing, staff reports maroon stools times one with few clots today. Hemoglobin 6.8, received 1 unit of packed RBC. Evaluated by GI with no EGD recommended at this time. Creatinine trending down to 2.1. Continues on empiric antibiotics of Zosyn and Levaquin. Repeat coronavirus reporting negative. Chest x-ray reporting persistent cardiomegaly, central vascular congestion with bilateral pleural effusions; small to moderate right pleural effusion with right mid to lower lung acute infiltrate/atelectasis, more prominent compared to yesterday. Maintaining O2 sats in the high 90s to 100% on 4 L nasal cannula. Denies chest pain, palpitations or shortness of breath. 03/17/2020 Continues to have rectal bleeding, maroon bowel movements 2 reported, current hemoglobin, increased to 8.3. Denies abdominal pain or cramping. Tolerating clear liquid diet with no nausea or vomiting.chest x- rayreporting worsening fluid overload with moderate layering right pleural effusion, Lasix increased. Maintaining O2 sats in the 90s on 5 L nasal cannula.creatinine stable at 2.09.denies chest pain, palpitations. 03/18/2020 continues to have maroon stools this morning 2. Hemoglobin 8.5. Maintaining O2 sats in the 90s on 5 L nasal cannula. Chest x-ray reporting scattered patchy airspace, interstitial infiltrates bilaterally right greater than left with improved aeration left lower lobe, persistent moderate right- sided pleural effusion. Chest ultrasound reported bilateral sites marked for possible thoracentesis, right pleural effusion pocket 10.5 cm left pleural effusion pocket 6.6 cm. Right thoracentesis pending. Objective - Vital Signs Vital signs: Vital Signs Temp 97.4 F L 03/18/20 04:00 Pulse 56 L 03/18/20 12:00 Resp 13 03/18/20 12:00 BP 98/50 03/18/20 12:00 Pulse Ox 100 03/18/20 12:00 Intake & Output 03/17/20 03/18/20 03/18/20 18:59 06:59 18:59 Intake Total 360 280 380 Output Total 610 875 400 Balance -250 -595 -20 Weight 74.2 kg Intake: IV 360 180 280 0.9 160 180 80 Piperacillin-Tazobactam 3 200 200 .375 gm In Sodium Chloride 0.9% 100 ml @ 25 mls/hr IVPB Q8HR JN Rx# :[id number] Intake, IV Titration 100 Amount Piperacillin-Tazobactam 3 100 .375 gm In Sodium Chloride 0.9% 100 ml @ 25 mls/hr IVPB Q8HR JN Rx# :[id number] Oral 100 Output: Urine 610 875 400 Other: Voiding Method Indwelling Catheter Indwelling Catheter Indwelling Catheter # Bowel Movements 2 - Exam General: Sitting up in bed, no acute distress,alert and oriented 2-3 HEENT: [PERRL. EOMI. No pharyngeal erythema or exudate. Oral mucosa moist. Neck: [No adenopathy. No JVD Cardiac: [Heart regular in rate and rhythm. No S3. No S4. No clicks, rubs. No murmur. Lungs: Bilateral bases diminished, occasional scattered coarse rhonchi. Abdomen: [Soft, nontender,No mass. No organomegaly. no guarding, Positive Bowel sounds present. Extremities: Right hip tender, sensation grossly intact, trace edema bilateral lower extremities, no clubbing, no cyanosis, positive pulses Skin: left hand with first and second digit missing .No rash.] Neurologic: [No lateralizing deficits. CN II - XII grossly intact.] - Labs CBC & Chem 7: 03/18/20 04:54 03/18/20 04:54 Labs: Abnormal Lab Results - Last 24 Hours (Table) 03/17/20 03/17/20 03/17/20 Range/Units 14:19 16:37 20:35 RBC 3.38 L (4.30-5.90) m/uL Hgb 9.0 L (13.0-17.5) gm/dL Hct 30.0 L (39.0-53.0) % MCHC 30.0 L (31.0-37.0) g/dL RDW 18.9 H (11.5-15.5) % Lymphocytes # 0.6 L (1.0-4.8) k/uL BUN (9-20) mg/dL Creatinine (0.66-1.25) mg/dL POC Glucose (mg/dL) 118 H 139 H (75-99) mg/dL Calcium (8.4-10.2) mg/dL 03/17/20 03/18/20 03/18/20 Range/Units 21:02 04:54 04:54 RBC 3.29 L 3.11 L (4.30-5.90) m/uL Hgb 9.1 L 8.5 L (13.0-17.5) gm/dL Hct 28.9 L 27.7 L (39.0-53.0) % MCHC 30.5 L (31.0-37.0) g/dL RDW 19.1 H 19.1 H (11.5-15.5) % Lymphocytes # 0.8 L 0.6 L (1.0-4.8) k/uL BUN 47 H (9-20) mg/dL Creatinine 2.21 H (0.66-1.25) mg/dL POC Glucose (mg/dL) (75-99) mg/dL Calcium 8.1 L (8.4-10.2) mg/dL 03/18/20 Range/Units 12:16 RBC (4.30-5.90) m/uL Hgb (13.0-17.5) gm/dL Hct (39.0-53.0) % MCHC (31.0-37.0) g/dL RDW (11.5-15.5) % Lymphocytes # (1.0-4.8) k/uL BUN (9-20) mg/dL Creatinine (0.66-1.25) mg/dL POC Glucose (mg/dL) 102 H (75-99) mg/dL Calcium (8.4-10.2) mg/dL Microbiology - Last 24 Hours (Table) 03/15/20 06:35 Blood Culture - Preliminary Blood No Growth after 72 hours Assessment and Plan Assessment: -Acute GI bleed, in a patient on Eliquis -Acute severe blood loss anemia secondary to the above -Acute on chronic hypoxic respiratory failure secondary to the above; wears 2 L at home -Recent right in situ screw fixation for nondisplaced right transcervical femoral neck fracture, status post fall -Chronic CHF, diastolic dysfunction, EF 50-55% -Severe pulmonary hypertension -Recent Covid 19 pneumonia, repeat coronavirus testing reported negative -Acute on chronic renal failure -Diabetes mellitus -Hypertension -Chronic atrial fibrillation -Dementia,Cognitive impairment, recent ventral cognitive assessment at [facility] reported 11 out of 30 - prior nicotine dependence -Dyslipidemia -Medical debility -No Code, No CPR, No Intubation Plan: Continue on current medication regime ,monitoring and symptomatic treatment. Right-sided thoracentesis pending. Continue on PPI, holding anticoagulants/Eliquis .close monitoring of hemoglobin,creatinine with repeat labs ordered for a.m. Nebulized bronchodilators. Currently, No endoscopy procedures recommended as per GI. The impression and plan of care has been dictated as directed. : I performed a history and examination of this patient, discussed the same with the dictator. I agree with the dictator's note ,documented as a scribe. Any additional findings or plans will be noted.
--- NOTE | 2020-03-18 13:41 | XR ---
EXAMINATION TYPE: XR chest 1V portable DATE OF EXAM: 03/18/2020 HISTORY: Status post right-sided thoracentesis. COMPARISON: 03/18/2020 TECHNIQUE: Single view of the chest is submitted. FINDINGS: Demonstrated are scattered senescent parenchymal change. Diminution in right-sided pleural effusion without evidence for pneumothorax. Scattered patchy infilt rates seen bilaterally as well as small left-sided pleural effusion. Improved aeration bilaterally. The heart is stable. Hilar and mediastinal structures are within normal limits. Degenerative changes are seen of the dorsal spine. IMPRESSION: 1. Diminution in right-sided pleural effusion without evidence for pneumothorax. Scattered patchy in filtrates seen bilaterally as well as small left-sided pleural effusion. Improved aeration bilaterall y.
[2020-03-18 15:18] LABS: Appearance,BF Hazy; Color,BF Yellow; Nucleated Cells, Body Fluid 25 /uL
[2020-03-18 15:19] LABS: RBC, Body Fluid 2175 /uL
[2020-03-18 15:32] LABS: Mononuclear WBC,Body Fluid 87 %; Polynuclear WBC,Body Fluid 12 %; Total Cells Counted,Body Fluid 100
[2020-03-18 16:32] LABS: Glucose,Whole Blood 118 mg/dL (75-99)
--- NOTE | 2020-03-18 18:32 | PN ---
PROGRESS NOTE DATE OF DICTATION: March 18, 2020 HISTORY: The patient is a 74-year-old pleasant white male admitted to the hospital with acute GI bleed. He was on Eliquis, which has been on hold. He had multiple episodes of black tarry stools with some bright red blood per rectum. He was seen by Dr. Mosher and the plan was to schedule him for an EGD and colonoscopy. The patient refused to have endoscopic procedures done. At the present time, he is doing well. He had thoracentesis done on the left side and his breathing is much better. He denies any abdominal pain. No nausea, vomiting. As per the nursing staff, he had 1 black tarry stools early this morning. PHYSICAL EXAMINATION: Appears comfortable in no apparent distress. VITAL SIGNS: Stable. Blood pressure 98/50, pulse rate 56, temperature 98.2. HEENT examination unremarkable. Conjunctivae pink. Sclerae anicteric. Oral cavity no lesions. NECK: No JVD or lymph node enlargement. CHEST was clear to auscultation. HEART: Regular rate and rhythm. ABDOMEN: Soft. Bowel sounds are positive. No organomegaly. EXTREMITIES no pedal edema. NEURO: He is alert and oriented x3. No focal deficits. LABS: From today WBC 6.5, hemoglobin 8.5, platelets 204. BUN 47, creatinine 2.21. IMPRESSION: 1. Acute gastrointestinal bleed. The patient presented with multiple episodes of dark- colored stools/maroon-colored stool unclear whether it was upper or lower gastrointestinal source of bleeding. The patient was on Eliquis, has been on hold since admission. Received 3 units of blood transfusion last hemoglobin is 8.5 g/dL. He had one episode of black tarry stools early this morning. He had a consultation with Dr. Mosher. He refused to have any endoscopic intervention at the present time. 2. Left-sided pleural effusion status post thoracentesis today. 3. History of congestive heart failure. 4. Recent Covid-19 infection that he has recovered. 5. Acute on chronic kidney disease. 6. Type 2 diabetes mellitus. RECOMMENDATIONS: 1. Monitor CBC on a daily basis. 2. Continue to hold off on anticoagulation. 3. Continue Protonix 40 mg twice daily. 4. Monitor CBC. 5. Continue symptomatic and supportive care as per the ICU as per taffy puller. 6. We will follow with you closely. Thank you for this consultation. MMODL / IJN: [id number] /
[2020-03-18 20:24] LABS: Glucose,Whole Blood 154 mg/dL (75-99)
[2020-03-18] MEDS: ATORVASTATIN 20 MG TAB PO SCH (20:29)
[2020-03-18] MEDS: INSULIN DETEMIR (LEVEMIR) 100 UNIT/ML SYR SQ SCH (20:30)
[2020-03-18 20:46] LABS: Glucose, BF Source Thoracentesis Fluid; Glucose, Body Fluid 96 mg/dL; LDH, Body Fluid Source Thoracentesis Fluid; Total Protein, Body Fluid 1625 mg/dL
[2020-03-18 20:47] LABS: Glucose,Whole Blood 170 mg/dL (75-99)
[2020-03-19] MEDS: PIPERACILLIN-TAZOBACTAM 3.375 GM in SODIUM CHLORIDE 0.9% 100 ML IVPB SCH ×3 (00:10→17:47)
--- NOTE | 2020-03-19 01:10 | PCN ---
PROCEDURE NOTE OPERATIVE REPORT: Right-sided thoracentesis. PREOPERATIVE DIAGNOSIS: Moderate-sized right-sided pleural effusion. POSTOPERATIVE DIAGNOSIS: Moderate-sized right-sided pleural effusion. ANESTHESIA USED: 2 mL of 1% lidocaine. PROCEDURE: The patient was placed in a sitting upright position, the area below the right scapula was prepared in a sterile fashion and drapes were applied. The area was earlier localized by ultrasound guidance, and it correlated to the level of 8th intercostal space and tip of the scapula. Again, the area was anesthetized, and a 26-gauge needle was inserted at the same site, advanced into the pleural space, fluid was localized. Then a small tiny incision was made, and a standard thoracentesis catheter and needle were used, advanced at the same site, advanced into the pleural space until the fluid was obtained. Fluid was slightly serosanguineous, roughly 1000 mL of fluid drained from the right pleural space. At the end of the procedure, the fluid was turning a bit serosanguineous, and a total of 1000 mL of fluid were drained. The fluid was sent for different diagnostic studies. Chest x-ray was ordered postoperatively. No evidence of any immediate complications. MMODL / IJN: [id number] /
[2020-03-19 06:11] LABS: Glucose,Whole Blood 48 mg/dL (75-99)
[2020-03-19 06:11] LABS: Glucose,Whole Blood 53 mg/dL (75-99)
[2020-03-19] MEDS: hydrALAZINE HCL 25 MG TAB PO SCH ×3 (06:12→22:57)
[2020-03-19] MEDS: HYDROcodone/APAP 5-325MG 1 EACH TAB PO PRN ×2 (06:17→23:00)
[2020-03-19 06:25] LABS: Glucose,Whole Blood 63 mg/dL (75-99)
[2020-03-19 06:43] LABS: Glucose,Whole Blood 42 mg/dL (75-99)
[2020-03-19] MEDS ORDERED: DEXTROSE 50% SYRINGE 50 ML IVP ONE (06:43)
[2020-03-19 06:49] LABS: Potassium 3.2 mmol/L (3.5-5.1)
[2020-03-19 06:51] LABS: Anisocytosis Slight; Basophils # (A) 0.1 k/uL (0-0.2); Basophils % (A) 1 %; Eosinophils # (A) 0.2 k/uL (0-0.7); Eosinophils % (A) 3 %; HCT 30.2 % (39.0-53.0); HGB 9.3 gm/dL (13.0-17.5); Hypochromasia Marked; Lymphocytes # (A) 0.8 k/uL (1.0-4.8); Lymphocytes % (A) 10 %; MCH 27.7 pg (25.0-35.0); MCHC 30.8 g/dL (31.0-37.0); MCV 89.8 fL (80.0-100.0); Mean Platelet Volume 8.4; Monocytes # (A) 0.6 k/uL (0-1.0); Monocytes % (A) 7 %; Neutrophils # (A) 6.6 k/uL (1.3-7.7); Neutrophils % (A) 79 %; Platelet Count 213 k/uL (150-450); Poikilocytosis Moderate; RBC 3.36 m/uL (4.30-5.90); RDW 19.1 % (11.5-15.5); WBC 8.4 k/uL (3.8-10.6)
[2020-03-19 07:03] LABS: Glucose,Whole Blood 70 mg/dL (75-99)
[2020-03-19 07:10] LABS: Glucose,Whole Blood 108 mg/dL (75-99)
[2020-03-19] MEDS ORDERED: Potassium Replacement Protocol 1 EACH MISC MISCELLANE PRN (08:40)
[2020-03-19] MEDS: buPROPion XL 150 MG TAB.ER.24H PO SCH (09:27)
[2020-03-19] MEDS: FUROSEMIDE 10 MG/ML 4 ML VIAL IV SCH ×2 (09:27→22:59)
[2020-03-19] MEDS: ESCITALOPRAM 10 MG TAB PO SCH (09:27)
[2020-03-19] MEDS: MAGNESIUM OXIDE 400 MG TAB PO SCH (09:28)
[2020-03-19] MEDS: METOPROLOL TARTRATE 50 MG TAB PO SCH ×2 (09:28→22:58)
[2020-03-19] MEDS: LIDOCAINE 5% PATCH TOPICAL SCH (09:28)
[2020-03-19] MEDS: ISOSORBIDE MONONITRATE ER 30 MG TAB.ER.24H PO SCH (09:28)
[2020-03-19] MEDS: LINAGLIPTIN 5 MG TABLET PO SCH (09:28)
[2020-03-19] MEDS: PANTOPRAZOLE 40 MG/10 ML VIAL IVP SCH ×2 (09:30→22:53)
[2020-03-19] MEDS: ALPRAZolam 0.25 MG TAB PO PRN ×3 (09:45→22:58)
[2020-03-19] MEDS ORDERED: MENTHOL (NICE) LOZENGE MUCOUS MEM PRN (10:00)
--- NOTE | 2020-03-19 11:14 | PN ---
PROGRESS NOTE DATE OF SERVICE: 03/19/2020 The patient is a 74-year-old pleasant white male with severe hypertension, diabetes mellitus, and hypertension as well as chronic kidney disease. Admitted to hospital with acute GI bleed. Had multiple episodes of rectal bleeding with maroon- colored stools and occasionally dark-colored stools. She was on Eliquis, which has been on hold since admission to the hospital. She has been in intensive care. She was seen by Dr. Mosher in consultation about 3 days ago. and patient refused to have any endoscopic intervention at the present time. In the meantime, he continues to have intermittent dark-colored stools. He had one early this morning. No abdominal pain. No nausea, vomiting. He had thoracentesis done yesterday. His breathing is much better. PHYSICAL EXAMINATION: He appears comfortable, in no apparent distress. VITAL SIGNS: Stable. Blood pressure is 108/68, pulse is 69, temperature 97.6. HEENT: Examination unremarkable, conjunctivae are pink, sclerae nonicteric, oral cavity no lesions. NECK: No JVD or lymph node enlargement. CHEST: Clear to auscultation. HEART: Regular rate and rhythm. ABDOMEN: Soft. Bowel sounds are positive. EXTREMITIES: No pedal edema. NEURO: He is awake, but somewhat sleepy. LABS: From today WBC 8.4, hemoglobin 9.3, platelets normal. Basic metabolic panel is normal. BUN is 46, creatinine 2.07. IMPRESSION: 1. Acute gastrointestinal bleed with multiple episodes of maroon-colored stools. He received 3 units of blood transfusion, last hemoglobin 9.3. He has some ongoing bleeding. Patient at this time refuses to have any endoscopic intervention. 2. Pleural effusion, status post thoracentesis yesterday. 3. Chronic obstructive pulmonary disease/pneumonia, on broad-spectrum antibiotics. 4. Diabetes mellitus. 5. Atrial fibrillation on Eliquis which is currently on hold for 4 days. RECOMMENDATION: 1. At this time:, continue to monitor hemoglobin on a daily basis. 2. Once again, I discussed with the patient regarding endoscopic intervention and he continues to refuse it. 3. Continue with symptomatic and supportive care. 4. Continue Protonix 40 mg daily. 5. Monitor labs on a daily basis. 6. Will follow with you. Thank you for this consultation. MMODL / IJN: [id number] /
--- NOTE | 2020-03-19 11:33 | P.PN ---
Subjective Progress Note Date: 03/19/20 Hospital course:74-year-old male resident currently at [facility] subacute rehab ,known to the practice with history of severe pulmonary hypertension, hypertension hyperlipidemia diabetes mellitus type 2 former smoker anxiety COPD stage III chronic renal insufficiency, recent pneumonia, early dementia (Montral cognitive scoring at [facility] 11 out of 30), recent right hip in situ screw fixation for nondisplaced right transcervical femoral neck fracture- on eliquis, transferred to the ER with complaints of rectal bleeding, maroon with blood clots. Hemoglobin yesterday reported from the ER at 6.8, on arrival 5.3, hypoxic, requiring a nonrebreather. Denies abdominal pain, complains of right hip and rib pain. No hemoptysis, no hematochezia. In the ER patient received K Centra two units of packed RBCs, with Eliquis placed on hold. Chest x-ray reporting increased infiltrate on the right lung worsening from prior x- ray. Zosyn, Levaquin initiated for potential H Pneumonia. INR 1.2, BUN 48, creatinine 2.18. CO2 32. Troponin 0.032. Denies chest pain, palpitations , ox ygen has been weaned down to 4 L nasal cannula .Poor historian. GI and pulmonary/printing pressman consulted. 03/16/20 rectal bleeding decreasing, staff reports maroon stools times one with few clots today. Hemoglobin 6.8, received 1 unit of packed RBC. Evaluated by GI with no EGD recommended at this time. Creatinine trending down to 2.1. Continues on empiric antibiotics of Zosyn and Levaquin. Repeat coronavirus reporting negative. Chest x-ray reporting persistent cardiomegaly, central vascular congestion with bilateral pleural effusions; small to moderate right pleural effusion with right mid to lower lung acute infiltrate/atelectasis, more prominent compared to yesterday. Maintaining O2 sats in the high 90s to 100% on 4 L nasal cannula. Denies chest pain, palpitations or shortness of breath. 03/17/2020 Continues to have rectal bleeding, maroon bowel movements 2 reported, current hemoglobin, increased to 8.3. Denies abdominal pain or cramping. Tolerating clear liquid diet with no nausea or vomiting.chest x- rayreporting worsening fluid overload with moderate layering right pleural effusion, Lasix increased. Maintaining O2 sats in the 90s on 5 L nasal cannula.creatinine stable at 2.09.denies chest pain, palpitations. 03/18/2020 continues to have maroon stools this morning 2. Hemoglobin 8.5. Maintaining O2 sats in the 90s on 5 L nasal cannula. Chest x-ray reporting scattered patchy airspace, interstitial infiltrates bilaterally right greater than left with improved aeration left lower lobe, persistent moderate right- sided pleural effusion. Chest ultrasound reported bilateral sites marked for possible thoracentesis, right pleural effusion pocket 10.5 cm left pleural effusion pocket 6.6 cm. Right thoracentesis pending. 03/19/2020 bowel movements no longer reported as maroon, reported as dark colored. Bowel movements X 2 this am. Denies abdominal pain. GI had discussed endoscopy, patient unsure if he wishes to proceed. Maintained on clear liquids X 4 days, with poor diet [id number] Hypoglycemic. Hemoglobin 9.3, creatinine 2.07. Right thoracentesis completed yesterday with 1 L removed, continuing to monitor left pleural effusion. Objective - Vital Signs Vital signs: Vital Signs Temp 97.6 F 03/19/20 04:00 Pulse 69 03/19/20 04:00 Resp 17 03/19/20 04:00 BP 108/68 03/19/20 04:00 Pulse Ox 96 03/19/20 04:00 Intake & Output 03/18/20 03/19/20 03/19/20 18:59 06:59 18:59 Intake Total 460 300 Output Total 1650 1120 Balance -1190 -820 Weight 74.1 kg 74.1 kg Intake: IV 360 300 0.9 160 200 Piperacillin-Tazobactam 3 200 100 .375 gm In Sodium Chloride 0.9% 100 ml @ 25 mls/hr IVPB Q8HR [facility] Rx# :[id number] Oral 100 Output: Urine 650 1120 Other 1000 Other: Voiding Method Indwelling Catheter Indwelling Catheter - Exam General: Sitting up in bed, no acute distress,alert and oriented 2-3, drowsy HEENT: [PERRL. EOMI. No pharyngeal erythema or exudate. Oral mucosa moist. Neck: [No adenopathy. No JVD Cardiac: [Heart regular in rate and rhythm. No S3. No S4. No clicks, rubs. No murmur. Lungs: Bilateral bases diminished. Abdomen: [Soft, nontender,No mass. No organomegaly. no guarding, Positive Bowel sounds present. Extremities: Right hip tender, sensation grossly intact, trace edema bilateral lower extremities, no clubbing, no cyanosis, positive pulses Skin: left hand with first and second digit missing .No rash.] Neurologic: [No lateralizing deficits. CN II - XII grossly intact.] - Labs CBC & Chem 7: 03/19/20 05:35 03/19/20 05:35 Labs: Abnormal Lab Results - Last 24 Hours (Table) 03/18/20 03/18/20 03/18/20 Range/Units 12:16 16:31 20:22 RBC (4.30-5.90) m/uL Hgb (13.0-17.5) gm/dL Hct (39.0-53.0) % MCHC (31.0-37.0) g/dL RDW (11.5-15.5) % Lymphocytes # (1.0-4.8) k/uL Potassium (3.5-5.1) mmol/L BUN (9-20) mg/dL Creatinine (0.66-1.25) mg/dL Glucose (74-99) mg/dL POC Glucose (mg/dL) 102 H 118 H 154 H (75-99) mg/dL Calcium (8.4-10.2) mg/dL 03/18/20 03/19/20 03/19/20 Range/Units 20:46 05:35 05:35 RBC 3.36 L (4.30-5.90) m/uL Hgb 9.3 L (13.0-17.5) gm/dL Hct 30.2 L (39.0-53.0) % MCHC 30.8 L (31.0-37.0) g/dL RDW 19.1 H (11.5-15.5) % Lymphocytes # 0.8 L (1.0-4.8) k/uL Potassium 3.2 L (3.5-5.1) mmol/L BUN 46 H (9-20) mg/dL Creatinine 2.07 H (0.66-1.25) mg/dL Glucose 38 L* (74-99) mg/dL POC Glucose (mg/dL) 170 H (75-99) mg/dL Calcium 8.0 L (8.4-10.2) mg/dL 03/19/20 03/19/20 03/19/20 Range/Units 06:07 06:09 06:23 RBC (4.30-5.90) m/uL Hgb (13.0-17.5) gm/dL Hct (39.0-53.0) % MCHC (31.0-37.0) g/dL RDW (11.5-15.5) % Lymphocytes # (1.0-4.8) k/uL Potassium (3.5-5.1) mmol/L BUN (9-20) mg/dL Creatinine (0.66-1.25) mg/dL Glucose (74-99) mg/dL POC Glucose (mg/dL) 48 L 53 L 63 L (75-99) mg/dL Calcium (8.4-10.2) mg/dL 03/19/20 03/19/20 03/19/20 Range/Units 06:42 07:02 07:09 RBC (4.30-5.90) m/uL Hgb (13.0-17.5) gm/dL Hct (39.0-53.0) % MCHC (31.0-37.0) g/dL RDW (11.5-15.5) % Lymphocytes # (1.0-4.8) k/uL Potassium (3.5-5.1) mmol/L BUN (9-20) mg/dL Creatinine (0.66-1.25) mg/dL Glucose (74-99) mg/dL POC Glucose (mg/dL) 42 L 70 L 108 H (75-99) mg/dL Calcium (8.4-10.2) mg/dL Microbiology - Last 24 Hours (Table) 03/18/20 13:20 Gram Stain - Preliminary Thoracic Fluid Body Fluid Culture - Preliminary 03/15/20 06:35 Blood Culture - Preliminary Blood No Growth after 96 hours 03/18/20 13:20 Acid Fast Bacilli Smear - Final Thoracentesis Fluid Acid Fast Bacilli Culture - Preliminary 03/18/20 13:20 Fungal Culture - Preliminary Thoracentesis Fluid Assessment and Plan Assessment: -Acute GI bleed, in a patient on Eliquis -Acute severe blood loss anemia secondary to the above -Acute on chronic hypoxic respiratory failure secondary to the above; wears 2 L at home -Recent right in situ screw fixation for nondisplaced right transcervical femoral neck fracture, status post fall -Chronic CHF, diastolic dysfunction, EF 50-55% -Severe pulmonary hypertension -Recent Covid 19 pneumonia, repeat coronavirus testing reported negative -Bilateral pleural effusion, status post right thoracentesis. -Acute on chronic renal failure -Diabetes mellitus, uncontrolled, hypoglycemic secondary to poor oral intake -Hypertension -Chronic atrial fibrillation -Dementia,Cognitive impairment, recent ventral cognitive assessment at [facility] reported 11 out of 30 - prior nicotine dependence -Dyslipidemia -Medical debility -No Code, No CPR, No Intubation -Moderate protein malnutrition, PPN initiated -Hypokalemic Plan: Continue on current medication regime ,monitoring and symptomatic treatment. Levemir insulin discontinued, maintain only on NovoLog sliding scale. Poor diet intake with clear liquids 4 days-insufficient nutrition, initiate PPN. Potassium supplementation ordered. Continue on PPI. Eliquis remains on hold.pleural cultures pending close monitoring of hemoglobin,creatinine with repeat labs ordered for a.m. patient transferring out of ICU to telemetry unit. The impression and plan of care has been dictated as directed. : I performed a history and examination of this patient, discussed the same with the dictator. I agree with the dictator's note ,documented as a scribe. Any additional findings or plans will be noted.
[2020-03-19 12:01] LABS: Glucose,Whole Blood 104 mg/dL (75-99)
[2020-03-19] MEDS: INSULIN ASPART (NovoLOG) 100 UNIT/ML VIAL SQ SCH ×3 (12:18→22:52)
--- NOTE | 2020-03-19 12:36 | P.PN ---
Subjective Progress Note Date: 03/19/20 Principal diagnosis: Acute GI bleeding, acute exacerbation of CHF This is a 74-year-old white male with history of multiple medical problems, I saw this patient recently for cold 19 pneumonitis. I also saw the patient for right hip fracture requiring surgery and the fracture was secondary to fall. Patient was eventually discharged to [facility] on the abbasi. And he was brought in this morning mostly complaining of bloody stools, blood-tinged sputum, and hematuria. Yesterday his hemoglobin was 6.8, however today his hemoglobin was noted to be as low as 5.3 on admission. Patient was on Eliquis for atrial fibrillation, and upon evaluation in the ER, patient was placed on Kcentra, transfused a total of 2 units of packed RBCs so far, and his Eliquis was placed on hold. The patient is not a great historian, however he denies any chest pain, denies any fever, no chills, he had occasional episodes of blood-tinged sputum, denies any nausea vomiting abdominal pain. 2 units of packed RBCs were given since admission, repeat hemoglobin is pending. Reviewing his last admis adelita, patient was discharged on 03/09, he had the right in situ screw fixation a nondisplaced right femoral neck fracture. His other medical problems included hypoxic respiratory failure secondary to chronic diastolic dysfunction, severe pulmonary hypertension, covid 19 pneumonitis, diabetes, hypertension, chronic hypoxic respiratory failure secondary to COPD, normally he is on option at 2 L. And he is also known to have history of cognitive impairment/dementia. Reevaluated today on 03/16/20, patient remains in the ICU. Patient dropped his hemoglobin down to 6.8 today. Continues to have intermittent episodes of maroon colored stools. Patient is supposed to be receiving 1 unit of packed RBCs today. Remains on IV fluid at KVO, oxygen at 4 L/m and his O2 saturation is 100%. Remains on empiric antibiotics in the form of Zosyn and Levaquin. Patient had a marginal urine output hence I have recommended after he receives the blood transfusion to be given at least 40 mg of Lasix IV push 1. So far the patient has received 3 units of packed RBCs since admission. Electrolytes are normal BUN is 51 creatinine 2.10 WBC count is 6.9. Chest x-ray continues to show bilateral pleural effusions, right midlung and right lower lobe opacity, patient had recent pneumonia secondary to Covid 19 pneumonitis. Reevaluated today on 03/17/20, patient remains in the ICU, continues to have intermittent episodes of maroon colored stools. Hemoglobin however is holding, it is 8.3 today, and it was 8.0 yesterday. Patient received a total of 3 units of packed RBCs since admission. EGD was not performed yesterday, no note from gastroenterology today whether patient is going to have EGD or colonoscopy or both. According to the note from yesterday, decision on endoscopic evaluation will be decided upon pending clinical course. In the meantime I will plan to transfer the patient out of the ICU to a regular medical floor, and continue same treatment plan. Reevaluated today on 03/18/20, patient remains in the ICU, he is presently an overflow. Doing fairly well, had one maroon stool last night, and he received a total of 3 units of packed RBCs since admission. Patient is feeling better, b reathing a lot easier, however he remains on 5 L nasal cannula without O2 saturation of 98%, chest x-ray showed bilateral pleural effusions, ultrasound of the chest showed a good sized right-sided pleural effusion, large enough to be tapped and drained. Considering the patient remains on relatively high FiO2, I would proceed with thoracentesis today on this patient. In the meantime we'll continue present supportive care measures. Chest x-ray ultrasound and labs were all reviewed. No plans by gastroenterology to perform endoscopic evaluation at this point. On 03/19/2020 patient is seen in follow-up in the intensive care unit, he is awaiting a bed on selective care, he has been an overflow status for last 2 days. Vital signs are stable, no worsening dyspnea. He remains on 6 L of oxyge n with a pulse ox of 95-96%, hemodynamically stable, his been afebrile, his respirations are nonlabored, breathing is comfortable. His hemoglobin is 9.3, and he received a total of 3 units of blood during this admission. His Eliquis remains on hold, GI service is following, and apparently patient refused to have any endoscopic intervention at this time. In the meantime patient continues to have some intermittent dark colored stools and had one early this morning, no abdominal pain, no nausea or vomiting. No tachycardia. Patient has been started on TPN infusion for nutrition. He is tolerating clear liquid diet. Yesterday patient underwent right-sided thoracentesis with removal of 1 L of light jimmie-colored fluid. Pleural fluid analysis shows transudate based on the LDH and protein content. Cultures are pending so far. She remains on IV Lasix of 40 mg every 12 hours and he is in -2000 and fluid balance over the last 24 hours. Yesterday chest x-ray following his right-sided thoracentesis showed improvement in aeration of the right lower lobe, no new chest x-ray today. Clinically patient is doing well, he's been up in the chair, tolerates activity well, he is generally weak. He remains on empiric antibiotics in the form of Zosyn. Objective - Vital Signs Vital signs: Vital Signs Temp 98.4 F 03/19/20 08:00 Pulse 72 03/19/20 08:00 Resp 15 03/19/20 08:00 BP 119/67 03/19/20 08:00 Pulse Ox 95 03/19/20 08:00 Intake & Output 03/18/20 03/19/20 03/19/20 18:59 06:59 18:59 Intake Total 460 300 60 Output Total 1650 1120 150 Balance -1190 -820 -90 Weight 74.1 kg 74.1 kg Intake: IV 360 300 60 0.9 160 200 60 Piperacillin-Tazobactam 3 200 100 .375 gm In Sodium Chloride 0.9% 100 ml @ 25 mls/hr IVPB Q8HR [facility] Rx# :[id number] Oral 100 Output: Urine 650 1120 150 Other 1000 Other: Voiding Method Indwelling Catheter Indwelling Catheter Indwelling Catheter - Exam GENERAL EXAM: Alert, very pleasant, 74-year-old white male, currently on 6 L of oxygen pulse ox of 95-96% comfortable in no apparent distress. HEAD: Normocephalic/atraumatic. EYES: Normal reaction of pupils, equal size. Conjunctiva pink, sclera white. NOSE: Clear with pink turbinates. THROAT: No erythema or exudates. NECK: No masses, no JVD, no thyroid enlargement, no adenopathy. CHEST: No chest wall deformity. Symmetrical expansion. LUNGS: Equal air entry with no crackles, wheeze, rhonchi or dullness. CVS: Regular rate and rhythm, normal S1 and S2, no gallops, no murmurs, no rubs ABDOMEN: Soft, nontender. No hepatosplenomegaly, normal bowel sounds, no guarding or rigidity. EXTREMITIES: No clubbing, no edema, no cyanosis, 2+ pulses and upper and lower extremities. MUSCULOSKELETAL: Muscle strength and tone normal. SPINE: No scoliosis or deformity SKIN: No rashes CENTRAL NERVOUS SYSTEM: Alert and oriented -3. No focal deficits, tone is normal in all 4 extremities. PSYCHIATRIC: Alert and oriented -3. Appropriate affect. Intact judgment and insight. - Labs CBC & Chem 7: 03/19/20 05:35 03/19/20 05:35 Labs: Abnormal Lab Results - Last 24 Hours (Table) 03/18/20 03/18/20 03/18/20 Range/Units 16:31 20:22 20:46 RBC (4.30-5.90) m/uL Hgb (13.0-17.5) gm/dL Hct (39.0-53.0) % MCHC (31.0-37.0) g/dL RDW (11.5-15.5) % Lymphocytes # (1.0-4.8) k/uL Potassium (3.5-5.1) mmol/L BUN (9-20) mg/dL Creatinine (0.66-1.25) mg/dL Glucose (74-99) mg/dL POC Glucose (mg/dL) 118 H 154 H 170 H (75-99) mg/dL Calcium (8.4-10.2) mg/dL 03/19/20 03/19/20 03/19/20 Range/Units 05:35 05:35 06:07 RBC 3.36 L (4.30-5.90) m/uL Hgb 9.3 L (13.0-17.5) gm/dL Hct 30.2 L (39.0-53.0) % MCHC 30.8 L (31.0-37.0) g/dL RDW 19.1 H (11.5-15.5) % Lymphocytes # 0.8 L (1.0-4.8) k/uL Potassium 3.2 L (3.5-5.1) mmol/L BUN 46 H (9-20) mg/dL Creatinine 2.07 H (0.66-1.25) mg/dL Glucose 38 L* (74-99) mg/dL POC Glucose (mg/dL) 48 L (75-99) mg/dL Calcium 8.0 L (8.4-10.2) mg/dL 03/19/20 03/19/20 03/19/20 Range/Units 06:09 06:23 06:42 RBC (4.30-5.90) m/uL Hgb (13.0-17.5) gm/dL Hct (39.0-53.0) % MCHC (31.0-37.0) g/dL RDW (11.5-15.5) % Lymphocytes # (1.0-4.8) k/uL Potassium (3.5-5.1) mmol/L BUN (9-20) mg/dL Creatinine (0.66-1.25) mg/dL Glucose (74-99) mg/dL POC Glucose (mg/dL) 53 L 63 L 42 L (75-99) mg/dL Calcium (8.4-10.2) mg/dL 03/19/20 03/19/20 03/19/20 Range/Units 07:02 07:09 11:59 RBC (4.30-5.90) m/uL Hgb (13.0-17.5) gm/dL Hct (39.0-53.0) % MCHC (31.0-37.0) g/dL RDW (11.5-15.5) % Lymphocytes # (1.0-4.8) k/uL Potassium (3.5-5.1) mmol/L BUN (9-20) mg/dL Creatinine (0.66-1.25) mg/dL Glucose (74-99) mg/dL POC Glucose (mg/dL) 70 L 108 H 104 H (75-99) mg/dL Calcium (8.4-10.2) mg/dL Microbiology - Last 24 Hours (Table) 03/18/20 13:20 Gram Stain - Preliminary Thoracic Fluid Body Fluid Culture - Preliminary 03/15/20 06:35 Blood Culture - Preliminary Blood No Growth after 96 hours 03/18/20 13:20 Acid Fast Bacilli Smear - Final Thoracentesis Fluid Acid Fast Bacilli Culture - Preliminary 03/18/20 13:20 Fungal Culture - Preliminary Thoracentesis Fluid Assessment and Plan Plan: Assessment: #1. Acute GI bleed, likely related to lower GI tract source, most likely se condary to diverticular disease worsened by anticoagulation in the form of Eliquis #2. Acute GI blood loss anemia, patient required transfusion with 3 units of packed red blood cells #3. Recent history of COVID 19 infection #4. Severe pulmonary hypertension #5. Chronic hypoxic rest or a failure related to COPD, chronic diastolic congestive heart failure and COVID 19 pneumonitis #6. Bilateral pleural effusions, status post right-sided thoracentesis on 03/18/2020 with removal of 1 L of light colored jimmie fluid, based on the protein and LDH level the fluid is transudative, related to acute exacerbation of CHF #7. Chronic atrial fibrillation was on Eliquis which is on hold right now related to acute GI bleeding #8. Acute on chronic failure #9. History of dementia #10. Type 2 diabetes mellitus #11. Benign essential hypertension #12. Dyslipidemia #13. Severe COPD, oxygen dependent, quit smoking 3 years ago #14. Chronic medical debility and deconditioning related to recent history of multiple hospitalizations, multiple comorbidities Plan: Eliquis remains on hold, patient still having intermittent dark colored stools, but hemoglobin is stable, hemodynamically patient is stable, he is tolerating clear liquid diet, no nausea or vomiting, abdomen is soft, no abdominal pain. No worsening shortness of breath, weaning FiO2, follow-up chest x-ray in the morning, patient is status post right-sided thoracentesis yesterday, fluid is transudative related to acute CHF exacerbation, will continue with IV Lasix, accurate intake and output, daily electrolytes and renal profile. Clinically stable, continue empiric antibiotics. Stable for transfer out of the intensive care unit today I performed a history & physical examination of the patient and discussed their management with my nurse practitioner, Valorie Gilbert. I reviewed the nurse practitioner's note and agree with the documented findings and plan of care. Lung sounds are positive for diminished breath sounds. The findings and the impression was discussed with the patient. I attest to the documentation by the nurse practitioner. Time with Patient: Less than 30
[2020-03-19] MEDS: POTASSIUM CHLORIDE ER 20 MEQ TAB.ER PO SCH ×2 (13:30→15:31)
[2020-03-19] MEDS: PARENTERAL ELECTROLYTES 20 ML, MVI, ADULT NO.4 WITH VIT K 10 ML, TRACE (CONC-1ML/DOSE) ... IV SCH ×5 (13:32)
[2020-03-19] MEDS: FAT EMULSION 20% 250 ML IV SCH (13:33)
[2020-03-19 16:45] LABS: Glucose,Whole Blood 160 mg/dL (75-99)
[2020-03-19 20:48] LABS: Glucose,Whole Blood 187 mg/dL (75-99)
[2020-03-19] MEDS: ATORVASTATIN 20 MG TAB PO SCH (22:55)
[2020-03-20] MEDS: PIPERACILLIN-TAZOBACTAM 3.375 GM in SODIUM CHLORIDE 0.9% 100 ML IVPB SCH ×3 (00:03→16:52)
[2020-03-20 06:21] LABS: Glucose,Whole Blood 232 mg/dL (75-99)
[2020-03-20] MEDS: INSULIN ASPART (NovoLOG) 100 UNIT/ML VIAL SQ SCH ×4 (06:45→21:53)
[2020-03-20] MEDS: hydrALAZINE HCL 25 MG TAB PO SCH ×3 (06:46→21:57)
[2020-03-20 07:25] LABS: Anisocytosis Slight; Basophils % (A) 1 %; Eosinophils # (A) 0.1 k/uL (0-0.7); Eosinophils % (A) 2 %; HCT 30.4 % (39.0-53.0); HGB 9.3 gm/dL (13.0-17.5); Hypochromasia Marked; Lymphocytes # (A) 0.7 k/uL (1.0-4.8); Lymphocytes % (A) 8 %; MCH 27.7 pg (25.0-35.0); MCHC 30.7 g/dL (31.0-37.0); MCV 90.3 fL (80.0-100.0); Mean Platelet Volume 8.3; Monocytes # (A) 0.5 k/uL (0-1.0); Monocytes % (A) 7 %; Neutrophils # (A) 6.6 k/uL (1.3-7.7); Neutrophils % (A) 82 %; Platelet Count 215 k/uL (150-450); Poikilocytosis Slight; RBC 3.37 m/uL (4.30-5.90); RDW 19.4 % (11.5-15.5)
[2020-03-20 07:29] LABS: Ionized Calcium 4.6 mg/dL (4.5-5.3)
[2020-03-20 07:41] LABS: Calcium 8.1 mg/dL (8.4-10.2); Magnesium 1.9 mg/dL (1.6-2.3); Phosphorus 3.4 mg/dL (2.5-4.5); Potassium 3.9 mmol/L (3.5-5.1)
[2020-03-20 07:42] LABS: Albumin 2.5 g/dL (3.5-5.0); Total Bilirubin 0.5 mg/dL (0.2-1.3); Total Protein 5.2 g/dL (6.3-8.2)
--- NOTE | 2020-03-20 07:53 | XR ---
EXAMINATION TYPE: XR chest 1V portable DATE OF EXAM: 03/20/2020 COMPARISON: Prior chest x-ray 03/18/2020 HISTORY: Shortness of breath TECHNIQUE: Single frontal view of the chest is obtained. FINDINGS: Findings are similar to prior exam. There is blunting of the costophrenic angles. Heart is enlarged. No pneumothorax. Perihilar, bibasilar increased attenuation persists. There are overlying cardiac leads. Aorta is dense. Thoracic spondylosis noted incidentally. IMPRESSION: Correlate for congestive heart failure, pneumonia with associated effusions. Follow-up r ecommended.
[2020-03-20] MEDS: LIDOCAINE 5% PATCH TOPICAL SCH (08:15)
[2020-03-20] MEDS: ESCITALOPRAM 10 MG TAB PO SCH (08:16)
[2020-03-20] MEDS: buPROPion XL 150 MG TAB.ER.24H PO SCH (08:16)
[2020-03-20] MEDS: MAGNESIUM OXIDE 400 MG TAB PO SCH (08:16)
[2020-03-20] MEDS: ALPRAZolam 0.25 MG TAB PO PRN ×3 (08:16→21:57)
[2020-03-20] MEDS: FUROSEMIDE 10 MG/ML 4 ML VIAL IV SCH ×2 (08:16→21:54)
[2020-03-20] MEDS: PANTOPRAZOLE 40 MG/10 ML VIAL IVP SCH ×2 (08:16→21:52)
[2020-03-20] MEDS: METOPROLOL TARTRATE 50 MG TAB PO SCH ×2 (08:17→21:59)
[2020-03-20] MEDS: ISOSORBIDE MONONITRATE ER 30 MG TAB.ER.24H PO SCH (08:17)
[2020-03-20] MEDS: LINAGLIPTIN 5 MG TABLET PO SCH (08:17)
[2020-03-20] MEDS: PARENTERAL ELECTROLYTES 20 ML, MVI, ADULT NO.4 WITH VIT K 10 ML, TRACE (CONC-1ML/DOSE) ... IV SCH ×10 (09:19→10:36)
[2020-03-20 10:34] LABS: Glucose,Whole Blood 141 mg/dL (75-99)
[2020-03-20] MEDS: FAT EMULSION 20% 250 ML IV SCH (10:37)
--- NOTE | 2020-03-20 11:22 | P.PN ---
Subjective Progress Note Date: 03/20/20 Principal diagnosis: Hospital course a 4-year-old male current resident at [facility] subacute rehab, although to the practice. Past medical history of pulmonary hypertensio n, hypertension, hyperlipidemia, diabetes mellitus type 2, COPD, stage III chronic renal insufficiency, recent code. 19 pneumonitis and recent right hip fracture with surgical repair. Montral cognitive scoring at [facility] was 11 out of 30 which was completed in October 2019. On to 11/17/2019 admitted to the emergency room with a hemoglobin I.3, hypoxic requiring a nonrebreather. She had recently received both our request and was placed on aspirin 03/20/2020 74-year-old male, currently sitting up in bed on 60% Ventimask. Chest x-ray for today questions his pneumonia with associated effusions. Denies pain but does complain of nasal passage "being stopped up". Last vomiting was this morning color was dark but not maroon. Denies abdominal pain at this time bowel sounds are active 4. Understanding GI had discussed endoscopy, patient unsure if he wanted it to be done. Current vital signs blood pressure 154/82. 91 respiratory rate 24, afebrile 98.2, satting 95% Ventimask and 8 L. Today's lab work WBC count of 8.0 hemoglobin of 9.3, hematocrit of 3 0.4, platelet count of 215. Chemistry sodium 135, potassium 3.9, chloride 97, BUN of 43, creatinine of 2.08 and glucose is 22, albumin of 2.5. Objective - Vital Signs Vital signs: Vital Signs Temp 98.2 F 03/20/20 10:59 Pulse 71 03/20/20 10:59 Resp 24 03/20/20 10:59 BP 154/82 03/20/20 10:59 Pulse Ox 95 03/20/20 10:59 Intake & Output 03/19/20 03/20/20 03/20/20 18:59 06:59 18:59 Intake Total 160 1041 Output Total 150 1226 Balance 10 -1226 1041 Weight 74.1 kg 66.5 kg Intake: IV 60 0.9 60 Intake, IV Titration 1041 Amount Parenteral Electrolytes 1041 20 ml Mvi, Adult No.4 with Vit K 10 ml Trace ( Conc-1Ml/Dose) 1 ml Potassium Chloride 20 meq In Amino Acid 4.25%-D10w 1,000 ml @ 50 mls/hr IV .[id number] [facility] Rx#: [id number] Oral 100 Output: Urine 150 1225 Urine/Stool Mix 1 Other: Voiding Method Indwelling Catheter Indwelling Catheter Indwelling Catheter # Bowel Movements 1 1 1 - Exam GENERAL: Sitting up in bed, no acute distress, alert and oriented 2. HEAD: Atraumatic, normocephalic. EYES: Pupils equal round and reactive to light, extraocular movements intact, sclera anicteric, conjunctiva are normal. ENT:nares patent, oropharynx clear without exudates. Moist mucous membranes. NECK: Normal range of motion, supple without lymphadenopathy or JVD, no thyromegaly LUNGS: Breath sounds diminished throughout with fine crackles in the bases. No wheezes rales or rhonchi. HEART: Regular rate and rhythm without murmurs, rubs or gallops.S1S2 Normal ABDOMEN: Soft, nontender, normoactive bowel sounds. No guarding, no rebound. No masses appreciated. EXTREMITIES: Normal range of motion, no pitting or edema. No clubbing or cyanosis, left hand with first and second digit missing. NEUROLOGICAL: Cranial nerves II through XII grossly intact. Normal speech, normal gait. PSYCH: Normal mood, normal affect. SKIN: Warm, Dry, normal turgor, no rashes or lesions noted. - Labs CBC & Chem 7: 03/20/20 06:52 03/20/20 06:52 Labs: Abnormal Lab Results - Last 24 Hours (Table) 03/19/20 03/19/20 03/19/20 Range/Units 11:59 16:43 20:42 RBC (4.30-5.90) m/uL Hgb (13.0-17.5) gm/dL Hct (39.0-53.0) % MCHC (31.0-37.0) g/dL RDW (11.5-15.5) % Lymphocytes # (1.0-4.8) k/uL Sodium (137-145) mmol/L Chloride (98-107) mmol/L BUN (9-20) mg/dL Creatinine (0.66-1.25) mg/dL Glucose (74-99) mg/dL POC Glucose (mg/dL) 104 H 160 H 187 H (75-99) mg/dL Calcium (8.4-10.2) mg/dL Total Protein (6.3-8.2) g/dL Albumin (3.5-5.0) g/dL 03/20/20 03/20/20 03/20/20 Range/Units 06:20 06:52 06:52 RBC 3.37 L (4.30-5.90) m/uL Hgb 9.3 L (13.0-17.5) gm/dL Hct 30.4 L (39.0-53.0) % MCHC 30.7 L (31.0-37.0) g/dL RDW 19.4 H (11.5-15.5) % Lymphocytes # 0.7 L (1.0-4.8) k/uL Sodium 135 L (137-145) mmol/L Chloride 97 L (98-107) mmol/L BUN 43 H (9-20) mg/dL Creatinine 2.08 H (0.66-1.25) mg/dL Glucose 202 H (74-99) mg/dL POC Glucose (mg/dL) 232 H (75-99) mg/dL Calcium 8.1 L (8.4-10.2) mg/dL Total Protein 5.2 L (6.3-8.2) g/dL Albumin 2.5 L (3.5-5.0) g/dL 03/20/20 Range/Units 10:33 RBC (4.30-5.90) m/uL Hgb (13.0-17.5) gm/dL Hct (39.0-53.0) % MCHC (31.0-37.0) g/dL RDW (11.5-15.5) % Lymphocytes # (1.0-4.8) k/uL Sodium (137-145) mmol/L Chloride (98-107) mmol/L BUN (9-20) mg/dL Creatinine (0.66-1.25) mg/dL Glucose (74-99) mg/dL POC Glucose (mg/dL) 141 H (75-99) mg/dL Calcium (8.4-10.2) mg/dL Total Protein (6.3-8.2) g/dL Albumin (3.5-5.0) g/dL Microbiology - Last 24 Hours (Table) 03/15/20 06:35 Blood Culture - Preliminary Blood No Growth after 120 hours 03/18/20 13:20 Gram Stain - Preliminary Thoracic Fluid Body Fluid Culture - Preliminary Assessment and Plan (1) Anemia associated with acute blood loss Current Visit: Yes Status: Acute Code(s): D62 - ACUTE POSTHEMORRHAGIC ANEMIA SNOMED Code(s): 527609465 (2) GI bleed Current Visit: Yes Status: Acute Code(s): K92.2 - GASTROINTESTINAL HEMORR FRANKLIN, UNSPECIFIED SNOMED Code(s): 56837229 (3) Pneumonia Current Visit: Yes Status: Acute Code(s): J18.9 - PNEUMONIA, UNSPECIFIED ORGANISM SNOMED Code(s): 802380977 (4) Acute kidney injury Current Visit: No Status: Acute Code(s): N17.9 - ACUTE KIDNEY FAILURE, UNSPECIFIED SNOMED Code(s): 43587734 (5) CHF (congestive heart failure) Current Visit: No Status: Acute Code(s): I50.9 - HEART FAILURE, UNSPECIFIED SNOMED Code(s): 16681822 (6) Chronic diastolic CHF (congestive heart failure), NYHA class 2 Current Visit: No Status: Acute Code(s): I50.32 - CHRONIC DIASTOLIC (CONGESTIVE) HEART FAILURE SNOMED Code(s): 663851211 (7) Chronic renal failure Current Visit: No Status: Acute Code(s): N18.9 - CHRONIC KIDNEY DISEASE, UNSPECIFIED SNOMED Code(s): 73419395 (8) Closed right hip fracture Current Visit: No Status: Acute Code(s): S72.001A - FRACTURE OF UNSP PART OF NECK OF RIGHT FEMUR, INIT SNOMED Code(s): 401090143 (9) Diabetes mellitus Current Visit: No Status: Acute Code(s): E11.9 - TYPE 2 DIABETES MELLITUS WITHOUT COMPLICATIONS SNOMED Code(s): 35404312 (10) Hypercholesterolemia Current Visit: No Status: Acute Code(s): E78.00 - PURE HYPERCHOLESTEROLEMIA, UNSPECIFIED SNOMED Code(s): 02925137 (11) Hyperlipidemia Current Visit: No Status: Acute Code(s): E78.5 - HYPERLIPIDEMIA, UNSPECIFIED SNOMED Code(s): 83378275 (12) Poor historian Current Visit: No Status: Acute Code(s): Z78.9 - OTHER SPECIFIED HEALTH STATUS SNOMED Code(s): 737048559 (13) Recurrent major depression Current Visit: No Status: Acute Code(s): F33.9 - MAJOR DEPRESSIVE DISORDER, RECURRENT, UNSPECIFIED SNOMED Code(s): 55590835 (14) Respiratory distress Current Visit: No Status: Acute Code(s): R06.03 - ACUTE RESPIRATORY DISTRESS SNOMED Code(s): 468065893 (15) Sinus tachycardia Current Visit: No Status: Acute Code(s): R00.0 - TACHYCARDIA, UNSPECIFIED SNOMED Code(s): 05618016 Plan: 1. Continue on clear liquid liquid diet. 2. Daily labs and repeat chest x-ray in a.m. 3. REMAINS on hold for dark-colored stools, hemoglobin is holding stable. 4. Continued oxygen and titrate to maintain oxygen sats greater than 93% 5. Continue IV Lasix. 6. Continue accurate I&O. 7. Continue antibiotics as written 8. Continue to follow pulmonology recommendations. 9. We'll follow closely and see tomorrow Time with Patient: Greater than 30
[2020-03-20 11:37] LABS: Glucose,Whole Blood 138 mg/dL (75-99)
[2020-03-20] MEDS: ALBUTEROL NEBULIZED 2.5 MG/3 ML INHALATION PRN (12:38)
--- NOTE | 2020-03-20 12:52 | PN ---
PROGRESS NOTE DATE OF DICTATION: March 20, 2020. REQUESTING PHYSICIAN: Dr. Pablo Mccain. The patient is a pleasant white male admitted to the hospital with acute GI bleed, shortness of breath, history of atrial fibrillation on Eliquis, which is currently on hold. He was transferred from the intensive care unit to the floor today. Today he is complaining of severe shortness of breath, presently on oxygen supplementation and he states that he does not feel good. He underwent a thoracentesis by Dr. Ramos 2 days ago. He denies any abdominal pain. He reports no nausea, vomiting. He states that he had 1 black tarry stool last night. PHYSICAL EXAMINATION: He is somewhat uncomfortable. Vital signs show a blood pressure of 154/84, pulse rate was 71, and temperature 98. HEENT examination unremarkable. Conjunctivae pink. Sclerae anicteric. Oral cavity no lesions. NECK: No JVD or lymph node enlargement. The chest was decreased breath sounds bilaterally. Some crackles noted. EXTREMITIES no pedal edema. ABDOMEN: Soft. NEUROLOGIC: Alert and oriented x3. No focal deficits. LABS: From today WBC 8, hemoglobin 9.3, platelets normal. Basic metabolic panel showed a BUN of 43 and 2.086. IMPRESSION: 1. Acute gastrointestinal bleed. The patient with intermittent dark colored stools and maroon colored stools. Eliquis has been on hold. He is status post three units of blood transfusion. He continues to have intermittent dark colored stools. Still refusing to have any endoscopy intervention at the present time. 2. Shortness of breath related to pleural effusion/congestive heart failure. Pulmonary following the patient closely. 3. History of atrial fibrillation on Eliquis, is currently on hold. 4. Chronic obstructive pulmonary disease/pneumonia. RECOMMENDATIONS: 1. Monitor hemoglobin on a daily basis. 2. Hold off any endoscopic intervention as patient does not want to have this currently. 3. Protonix 40 mg daily. 4. Daily labs. 5. We will follow him closely. Thank you for this consultation. MMODL / IJN: [id number] /
--- NOTE | 2020-03-20 13:06 | P.PN ---
Subjective Progress Note Date: 03/20/20 Principal diagnosis: his is a 74-year-old white male with history of multiple medical problems, I saw this patient recently for cold 19 pneumonitis. I also saw the patient for right hip fracture requiring surgery and the fracture was secondary to fall. Patient was eventually discharged to [facility] on the abbasi. And he was brought in this morning mostly complaining of bloody stools, blood-tinged sputum, and hematuria. Yesterday his hemoglobin was 6.8, however today his hemoglobin was noted to be as low as 5.3 on admission. Patient was on Eliquis for atrial fibrillation, and upon evaluation in the ER, patient was placed on Kcentra, transfused a total of 2 units of packed RBCs so far, and his Eliquis was placed on hold. The patient is not a great historian, however he denies any chest pain, denies any fever, no chills, he had occasional episodes of blood-tinged sputum, denies any nausea vomiting abdominal pain. 2 units of packed RBCs were given since admission, re peat hemoglobin is pending. Reviewing his last admission, patient was discharged on 03/09, he had the right in situ screw fixation a nondisplaced right femoral neck fracture. His other medical problems included hypoxic respiratory failure secondary to chronic diastolic dysfunction, severe pulmonary hypertension, covid 19 pneumonitis, diabetes, hypertension, chronic hypoxic respiratory failure secondary to COPD, normally he is on option at 2 L. And he is also known to have history of cognitive impairment/dementia. Reevaluated today on 03/16/20, patient remains in the ICU. Patient dropped his hemoglobin down to 6.8 today. Continues to have intermittent episodes of maroon colored stools. Patient is supposed to be receiving 1 unit of packed RBCs today. Remains on IV fluid at KVO, oxygen at 4 L/m and his O2 saturation is 100%. Remains on empiric antibiotics in the form of Zosyn and Levaquin. Patient had a marginal urine output hence I have recommended after he receives the blood transfusion to be given at least 40 mg of Lasix IV push 1. So far the patient has received 3 units of packed RBCs since admission. Electrolytes are normal BUN is 51 creatinine 2.10 WBC count is 6.9. Chest x-ray continues to show bilateral pleural effusions, right midlung and right lower lobe opacity, patient had recent pneumonia secondary to Covid 19 pneumonitis. Reevaluated today on 03/17/20, patient remains in the ICU, continues to have intermittent episodes of maroon colored stools. Hemoglobin however is holding, it is 8.3 today, and it was 8.0 yesterday. Patient received a total of 3 units of packed RBCs since admission. EGD was not performed yesterday, no note from gastroenterology today whether patient is going to have EGD or colonoscopy or both. According to the note from yesterday, decision on endoscopic evaluation will be decided upon pending clinical course. In the meantime I will plan to transfer the patient out of the ICU to a regular medical floor, and continue same treatment plan. Reevaluated today on 03/18/20, patient remains in the ICU, he is presently an overflow. Doing fairly well, had one maroon stool last night, and he received a total of 3 units of packed RBCs since admission. Patient is feeling better, breathing a lot easier, however he remains on 5 L nasal cannula without O2 saturation of 98%, chest x-ray showed bilateral pleural effusions, ultrasound of the chest showed a good sized right-sided pleural effusion, large enough to be tapped and drained. Considering the patient remains on relatively high FiO2, I would proceed with thoracentesis today on this patient. In the meantime we'll continue present supportive care measures. Chest x-ray ultrasound and labs were all reviewed. No plans by gastroenterology to perform endoscopic evaluation at this point. On 03/19/2020 patient is seen in follow-up in the intensive care unit, he is mendoza iting a bed on selective care, he has been an overflow status for last 2 days. Vital signs are stable, no worsening dyspnea. He remains on 6 L of oxygen with a pulse ox of 95-96%, hemodynamically stable, his been afebrile, his respirations are nonlabored, breathing is comfortable. His hemoglobin is 9.3, and he received a total of 3 units of blood during this admission. His Eliquis remains on hold, GI service is following, and apparently patient refused to have any endoscopic intervention at this time. In the meantime patient continues to have some intermittent dark colored stools and had one early this morning, no abdominal pain, no nausea or vomiting. No tachycardia. Patient has been started on TPN infusion for nutrition. He is tolerating clear liquid diet. Yesterday patient underwent right-sided thoracentesis with removal of 1 L of light jimmie-colored fluid. Pleural fluid analysis shows transudate based on the LDH and protein content. Cultures are pending so far. She remains on IV Lasix of 40 mg every 12 hours and he is in -2000 and fluid balance over the last 24 hours. Yesterday chest x-ray following his right-sided thoracentesis showed improvement in aeration of the right lower lobe, no new chest x-ray today. Clinically patient is doing well, he's been up in the chair, tolerates activity well, he is generally weak. He remains on empiric antibiotics in the form of Zosyn. The patient is seen today 03/20/2020 in follow-up on the selective care unit. He is currently sitting up in bed. Awake and alert in no acute distress. He is having ongoing issues with shortness of breath and dyspnea on exertion. He is maintaining good O2 saturations in the mid 90s on a Ventimask. He. Hemodynamically stable. Today's chest x-ray shows similar findings compared to previous. There is perihilar and bibasilar increase attenuation. Correlate for congestive heart failure versus pneumonia with associated effusions. White count 8.0. Hemoglobin 9.3. Sodium 135. Potassium 3.9. Creatinine 2.08. He remains on Lasix 40 mg IV every 12 hours. Bronchodilators. Antibiotics in the form of Zosyn. Pleural fluid analysis was transudative in nature with a LDH of 82 and a total protein of 1.6. Objective - Vital Signs Vital signs: Vital Signs Temp 98.2 F 03/20/20 10:59 Pulse 90 03/20/20 12:49 Resp 24 03/20/20 12:00 BP 154/82 03/20/20 10:59 Pulse Ox 95 03/20/20 10:59 Intake & Output 03/19/20 03/20/20 03/20/20 18:59 06:59 18:59 Intake Total 160 1041 Output Total 150 1226 Balance 10 -1226 1041 Weight 74.1 kg 66.5 kg Intake: IV 60 0.9 60 Intake, IV Titration 1041 Amount Parenteral Electrolytes 1041 20 ml Mvi, Adult No.4 with Vit K 10 ml Trace ( Conc-1Ml/Dose) 1 ml Potassium Chloride 20 meq In Amino Acid 4.25%-D10w 1,000 ml @ 50 mls/hr IV .[id number] [facility] Rx#: [id number] Oral 100 Output: Urine 150 1225 Urine/Stool Mix 1 Other: Voiding Method Indwelling Catheter Indwelling Catheter Indwelling Catheter # Bowel Movements 1 1 1 - Exam GENERAL EXAM: Alert, very pleasant, 74-year-old male patient, currently on Ventimask pulse ox of 95% comfortable in no apparent distress. HEAD: Normocephalic/atraumatic. EYES: Normal reaction of pupils, equal size. Conjunctiva pink, sclera white. NOSE: Clear with pink turbinates. THROAT: No erythema or exudates. NECK: No masses, no JVD, no thyroid enlargement, no adenopathy. CHEST: No chest wall deformity. Symmetrical expansion. LUNGS: Equal air entry with crackles in the bilateral posterior bases, diminished CVS: Regular rate and rhythm, normal S1 and S2, no gallops, no murmurs, no rubs ABDOMEN: Soft, nontender. No hepatosplenomegaly, normal bowel sounds, no guarding or rigidity. EXTREMITIES: No clubbing, no edema, no cyanosis, 2+ pulses and upper and lower extremities. MUSCULOSKELETAL: Muscle strength and tone normal. SPINE: No scoliosis or deformity SKIN: No rashes CENTRAL NERVOUS SYSTEM: No focal deficits, tone is normal in all 4 extremities. PSYCHIATRIC: Alert and oriented -3. Appropriate affect. Intact judgment and insight. - Labs CBC & Chem 7: 03/20/20 06:52 03/20/20 06:52 Labs: Abnormal Lab Results - Last 24 Hours (Table) 03/19/20 03/19/20 03/20/20 Range/Units 16:43 20:42 06:20 RBC (4.30-5.90) m/uL Hgb (13.0-17.5) gm/dL Hct (39.0-53.0) % MCHC (31.0-37.0) g/dL RDW (11.5-15.5) % Lymphocytes # (1.0-4.8) k/uL Sodium (137-145) mmol/L Chloride (98-107) mmol/L BUN (9-20) mg/dL Creatinine (0.66-1.25) mg/dL Glucose (74-99) mg/dL POC Glucose (mg/dL) 160 H 187 H 232 H (75-99) mg/dL Calcium (8.4-10.2) mg/dL Total Protein (6.3-8.2) g/dL Albumin (3.5-5.0) g/dL 03/20/20 03/20/20 03/20/20 Range/Units 06:52 06:52 10:33 RBC 3.37 L (4.30-5.90) m/uL Hgb 9.3 L (13.0-17.5) gm/dL Hct 30.4 L (39.0-53.0) % MCHC 30.7 L (31.0-37.0) g/dL RDW 19.4 H (11.5-15.5) % Lymphocytes # 0.7 L (1.0-4.8) k/uL Sodium 135 L (137-145) mmol/L Chloride 97 L (98-107) mmol/L BUN 43 H (9-20) mg/dL Creatinine 2.08 H (0.66-1.25) mg/dL Glucose 202 H (74-99) mg/dL POC Glucose (mg/dL) 141 H (75-99) mg/dL Calcium 8.1 L (8.4-10.2) mg/dL Total Protein 5.2 L (6.3-8.2) g/dL Albumin 2.5 L (3.5-5.0) g/dL 03/20/20 Range/Units 11:36 RBC (4.30-5.90) m/uL Hgb (13.0-17.5) gm/dL Hct (39.0-53.0) % MCHC (31.0-37.0) g/dL RDW (11.5-15.5) % Lymphocytes # (1.0-4.8) k/uL Sodium (137-145) mmol/L Chloride (98-107) mmol/L BUN (9-20) mg/dL Creatinine (0.66-1.25) mg/dL Glucose (74-99) mg/dL POC Glucose (mg/dL) 138 H (75-99) mg/dL Calcium (8.4-10.2) mg/dL Total Protein (6.3-8.2) g/dL Albumin (3.5-5.0) g/dL Microbiology - Last 24 Hours (Table) 03/18/20 13:20 Gram Stain - Preliminary Thoracic Fluid Body Fluid Culture - Preliminary 03/15/20 06:35 Blood Culture - Preliminary Blood No Growth after 120 hours Assessment and Plan Assessment: #1. Acute GI bleed, likely related to lower GI tract source, most likely secondary to diverticular disease worsened by anticoagulation in the form of Eliquis #2. Acute GI blood loss anemia, patient required transfusion with 3 units of packed red blood cells #3. Recent history of COVID 19 infection #4. Severe pulmonary hypertension #5. Chronic hypoxic respiratory failure related to COPD, chronic diastolic congestive heart failure and COVID 19 pneumonitis #6. Bilateral pleural effusions, status post right-sided thoracentesis on 03/18/2020 with removal of 1 L of light colored jimmie fluid, based on the protein and LDH level the fluid is transudative, related to acute exacerbation of CHF #7. Chronic atrial fibrillation was on Eliquis which is on hold right now related to acute GI bleeding #8. Acute on chronic failure #9. History of dementia #10. Type 2 diabetes mellitus #11. Benign essential hypertension #12. Dyslipidemia #13. Severe COPD, oxygen dependent, quit smoking 3 years ago #14. Chronic medical debility and deconditioning related to recent history of multiple hospitalizations, multiple comorbidities Plan: The patient was seen and evaluated by Dr. Ramos Chest x-ray and labs reviewed Add Lovenox as the patient tolerates only minimal activity Continue bronchodilators Continue Zosyn Continue IV diuretics Overall prognosis remains guarded DO NOT RESUSCITATE/DO NOT INTUBATE CODE STATUS We will continue to follow and make further recommendations based on his clinical status I, the cosigning physician, performed a history & physical examination of the patient. Lungs sounds with crackles in the bilateral posterior bases, diminished. Maintaining good O2 saturations in the 90s on Ventimask. I discussed the assessment and plan of care with my nurse practitioner, Eveline Munguia. I attest to the above note as dictated by her.
[2020-03-20] MEDS: HYDROcodone/APAP 5-325MG 1 EACH TAB PO PRN ×2 (13:33→22:02)
[2020-03-20] MEDS: ENOXAPARIN 30 MG/0.3 ML SYRINGE SQ SCH (13:33)
[2020-03-20 16:49] LABS: Glucose,Whole Blood 229 mg/dL (75-99)
[2020-03-20 20:48] LABS: Glucose,Whole Blood 215 mg/dL (75-99)
[2020-03-20] MEDS: ATORVASTATIN 20 MG TAB PO SCH (21:56)
[2020-03-21] MEDS: PIPERACILLIN-TAZOBACTAM 3.375 GM in SODIUM CHLORIDE 0.9% 100 ML IVPB SCH ×4 (00:15→23:43)
[2020-03-21] MEDS: HYDROcodone/APAP 5-325MG 1 EACH TAB PO PRN ×3 (05:10→17:35)
[2020-03-21] MEDS: ALPRAZolam 0.25 MG TAB PO PRN ×3 (05:10→17:35)
[2020-03-21] MEDS: hydrALAZINE HCL 25 MG TAB PO SCH ×3 (05:14→20:35)
[2020-03-21 06:14] LABS: Albumin 2.4 g/dL (3.5-5.0); Potassium 3.6 mmol/L (3.5-5.1)
[2020-03-21 06:15] LABS: Glucose,Whole Blood 203 mg/dL (75-99)
[2020-03-21 06:15] LABS: Calcium 8.1 mg/dL (8.4-10.2); Total Bilirubin 0.4 mg/dL (0.2-1.3)
[2020-03-21] MEDS: INSULIN ASPART (NovoLOG) 100 UNIT/ML VIAL SQ SCH ×4 (06:38→20:29)
--- NOTE | 2020-03-21 07:34 | P.PN ---
Subjective Progress Note Date: 03/21/20 Principal diagnosis: Hospital course a 4-year-old male current resident at [facility] subacute rehab, although to the practice. Past medical history of pulmonary hypertensio n, hypertension, hyperlipidemia, diabetes mellitus type 2, COPD, stage III chronic renal insufficiency, recent code. 19 pneumonitis and recent right hip fracture with surgical repair. Montral cognitive scoring at [facility] was 11 out of 30 which was completed in October 2019. On to 11/17/2019 admitted to the emergency room with a hemoglobin I.3, hypoxic requiring a nonrebreather. She had recently received both our request and was placed on aspirin 03/20/2020 74-year-old male, currently sitting up in bed on 60% Ventimask. Chest x-ray for today questions his pneumonia with associated effusions. Denies pain but does complain of nasal passage "being stopped up". Last vomiting was this morning color was dark but not maroon. Denies abdominal pain at this time bowel sounds are active 4. Understanding GI had discussed endoscopy, patient unsure if he wanted it to be done. Current vital signs blood pressure 154/82. 91 respiratory rate 24, afebrile 98.2, satting 95% Ventimask and 8 L. Today's lab work WBC count of 8.0 hemoglobin of 9.3, hematocrit of 3 0.4, platelet count of 215. Chemistry sodium 135, potassium 3.9, chloride 97, BUN of 43, creatinine of 2.08 and glucose is 22, albumin of 2.5. 03/21/2020 74-year-old male currently laying in bed in no acute distress. Denies pain or abdominal discomfort, but states he feels his nose is stuffed up. He also makes mention that he does get short of breath with exertion at times and that he gets anxious. Today's on 5 L nasal cannula with humidification oxygen saturations are in the mid 90s. Current vitals afebrile 90 7., heart rate 77, respiratory rate of 20, blood pressure on right arm 133/68, oxygen saturation 99. Chem panel this morning 136 sodium, potassium 3.6, BUN of 42, creatinine 2.2 to, glucose 172, AST 14, ALP 7. Objective - Vital Signs Vital signs: Vital Signs Temp 97.8 F 03/21/20 04:00 Pulse 77 03/21/20 04:00 Resp 22 03/21/20 04:00 BP 133/68 03/21/20 04:00 Pulse Ox 99 03/21/20 04:00 Intake & Output 03/20/20 03/21/20 03/21/20 18:59 06:59 18:59 Intake Total 1041 540 Output Total 400 800 Balance 641 -260 Weight 78.5 kg Intake: Intake, IV Titration 1041 Amount Parenteral Electrolytes 1041 20 ml Mvi, Adult No.4 with Vit K 10 ml Trace ( Conc-1Ml/Dose) 1 ml Potassium Chloride 20 meq In Amino Acid 4.25%-D10w 1,000 ml @ 50 mls/hr IV .[id number] [facility] Rx#: [id number] Oral 540 Output: Urine 400 800 Other: Voiding Method Indwelling Catheter Indwelling Catheter # Bowel Movements 1 - Exam GENERAL: Sitting up in bed, no acute distress, alert and oriented 2. HEAD: Atraumatic, normocephalic. EYES: Pupils equal round and reactive to light, extraocular movements intact, sclera anicteric, conjunctiva are normal. ENT:nares patent, oropharynx clear without exudates. Moist mucous membranes. NECK: Normal range of motion, supple without lymphadenopathy or JVD, no thyromegaly LUNGS: Breath sounds diminished throughout with fine crackles in the bases. No wheezes rales or rhonchi. HEART: Regular rate and rhythm without murmurs, rubs or gallops.S1S2 Normal ABDOMEN: Soft, nontender, normoactive bowel sounds. No guarding, no rebound. No masses appreciated. EXTREMITIES: Normal range of motion, no pitting or edema. No clubbing or cyanosis, left hand with first and second digit missing. NEUROLOGICAL: Cranial nerves II through XII grossly intact. Normal speech, normal gait. PSYCH: Normal mood, normal affect. SKIN: Warm, Dry, normal turgor, no rashes or lesions noted. - Labs CBC & Chem 7: 03/20/20 06:52 03/21/20 05:33 Labs: Abnormal Lab Results - Last 24 Hours (Table) 03/20/20 03/20/20 03/20/20 Range/Units 06:52 06:52 10:33 RBC 3.37 L (4.30-5.90) m/uL Hgb 9.3 L (13.0-17.5) gm/dL Hct 30.4 L (39.0-53.0) % MCHC 30.7 L (31.0-37.0) g/dL RDW 19.4 H (11.5-15.5) % Lymphocytes # 0.7 L (1.0-4.8) k/uL Sodium 135 L (137-145) mmol/L Chloride 97 L (98-107) mmol/L Carbon Dioxide (22-30) mmol/L BUN 43 H (9-20) mg/dL Creatinine 2.08 H (0.66-1.25) mg/dL Glucose 202 H (74-99) mg/dL POC Glucose (mg/dL) 141 H (75-99) mg/dL Calcium 8.1 L (8.4-10.2) mg/dL AST (17-59) U/L Total Protein 5.2 L (6.3-8.2) g/dL Albumin 2.5 L (3.5-5.0) g/dL 03/20/20 03/20/20 03/20/20 Range/Units 11:36 16:48 20:46 RBC (4.30-5.90) m/uL Hgb (13.0-17.5) gm/dL Hct (39.0-53.0) % MCHC (31.0-37.0) g/dL RDW (11.5-15.5) % Lymphocytes # (1.0-4.8) k/uL Sodium (137-145) mmol/L Chloride (98-107) mmol/L Carbon Dioxide (22-30) mmol/L BUN (9-20) mg/dL Creatinine (0.66-1.25) mg/dL Glucose (74-99) mg/dL POC Glucose (mg/dL) 138 H 229 H 215 H (75-99) mg/dL Calcium (8.4-10.2) mg/dL AST (17-59) U/L Total Protein (6.3-8.2) g/dL Albumin (3.5-5.0) g/dL 03/21/20 03/21/20 Range/Units 05:33 06:13 RBC (4.30-5.90) m/uL Hgb (13.0-17.5) gm/dL Hct (39.0-53.0) % MCHC (31.0-37.0) g/dL RDW (11.5-15.5) % Lymphocytes # (1.0-4.8) k/uL Sodium 136 L (137-145) mmol/L Chloride 97 L (98-107) mmol/L Carbon Dioxide 34 H (22-30) mmol/L BUN 42 H (9-20) mg/dL Creatinine 2.22 H (0.66-1.25) mg/dL Glucose 172 H (74-99) mg/dL POC Glucose (mg/dL) 203 H (75-99) mg/dL Calcium 8.1 L (8.4-10.2) mg/dL AST 14 L (17-59) U/L Total Protein 5.0 L (6.3-8.2) g/dL Albumin 2.4 L (3.5-5.0) g/dL Microbiology - Last 24 Hours (Table) 03/18/20 13:20 Gram Stain - Preliminary Thoracic Fluid Body Fluid Culture - Preliminary 03/15/20 06:35 Blood Culture - Preliminary Blood No Growth after 120 hours Assessment and Plan (1) Anemia associated with acute blood loss Current Visit: Yes Status: Acute Code(s): D62 - ACUTE POSTHEMORRHAGIC ANEMIA SNOMED Code(s): 607303453 (2) GI bleed Current Visit: Yes Status: Acute Code(s): K92.2 - GASTROINTESTINAL HEMORRHAGE, UNSPECIFIED SNOMED Code(s): 90494167 (3) Pneumonia Current Visit: Yes Status: Acute Code(s): J18.9 - PNEUMONIA, UNSPECIFIED ORGANISM SNOMED Code(s): 303893357 (4) Acute kidney injury Current Visit: No Status: Acute Code(s): N17.9 - ACUTE KIDNEY FAILURE, UNSPECIFIED SNOMED Code(s): 13581159 (5) CHF (congestive heart failure) Current Visit: No Status: Acute Code(s): I50.9 - HEART FAILURE, UNSPECIFIED SNOMED Code(s): 61594948 (6) Chronic diastolic CHF (congestive heart failure), NYHA class 2 Current Visit: No Status: Acute Code(s): I50.32 - CHRONIC DIASTOLIC (CONGESTIVE) HEART FAILURE SNOMED Code(s): 940165885 (7) Chronic renal failure Current Visit: No Status: Acute Code(s): N18.9 - CHRONIC KIDNEY DISEASE, UNSPECIFIED SNOMED Code(s): 83160266 (8) Closed right hip fracture Current Visit: No Status: Acute Code(s): S72.001A - FRACTURE OF UNSP PART OF NECK OF RIGHT FEMUR, INIT SNOMED Code(s): 906647310 (9) Diabetes mellitus Current Visit: No Status: Acute Code(s): E11.9 - TYPE 2 DIABETES MELLITUS WITHOUT COMPLICATIONS SNOMED Code(s): 22179987 (10) Hypercholesterolemia Current Visit: No Status: Acute Code(s): E78.00 - PURE HYPERCHOLESTEROLEMIA, UNSPECIFIED SNOMED Code(s): 71766455 (11) Hyperlipidemia Current Visit: No Status: Acute Code(s): E78.5 - HYPERLIPIDEMIA, UNSPECIFIED SNOMED Code(s): 67324517 (12) Poor historian Current Visit: No Status: Acute Code(s): Z78.9 - OTHER SPECIFIED HEALTH STATUS SNOMED Code(s): 856153286 (13) Recurrent major depression Current Visit: No Status: Acute Code(s): F33.9 - MAJOR DEPRESSIVE DISORDER, RECURRENT, UNSPECIFIED SNOMED Code(s): 63948438 (14) Respiratory distress Current Visit: No Status: Acute Code(s): R06.03 - ACUTE RESPIRATORY DISTRESS SNOMED Code(s): 913895962 (15) Sinus tachycardia Current Visit: No Status: Acute Code(s): R00.0 - TACHYCARDIA, UNSPECIFIED SNOMED Code(s): 63449604 Plan: 1. Continue on clear liquid liquid diet. 2. Daily labs and repeat chest x-ray in a.m. 3. We'll recheck complete blood count this morning 4. Continued oxygen and titrate to maintain oxygen sats greater than 93% 5. Continue IV Lasix. 6. Continue accurate I&O. 7. Continue antibiotics as written 8. Continue to follow pulmonology recommendations. 9. We'll follow closely and see tomorrow Time with Patient: Greater than 30
[2020-03-21 07:45] LABS: Anisocytosis Slight; Basophils % (A) 0 %; Eosinophils # (A) 0.1 k/uL (0-0.7); Eosinophils % (A) 2 %; HCT 29.1 % (39.0-53.0); HGB 8.7 gm/dL (13.0-17.5); Hypochromasia Marked; Lymphocytes # (A) 0.6 k/uL (1.0-4.8); Lymphocytes % (A) 7 %; MCH 26.8 pg (25.0-35.0); MCHC 29.7 g/dL (31.0-37.0); MCV 90.3 fL (80.0-100.0); Mean Platelet Volume 9.6; Monocytes # (A) 0.4 k/uL (0-1.0); Monocytes % (A) 6 %; Neutrophils # (A) 6.7 k/uL (1.3-7.7); Neutrophils % (A) 84 %; Platelet Count 185 k/uL (150-450); Poikilocytosis Slight; RBC 3.22 m/uL (4.30-5.90); RDW 19.4 % (11.5-15.5)
[2020-03-21] MEDS: ALBUTEROL NEBULIZED 2.5 MG/3 ML INHALATION PRN ×4 (07:45→20:26)
[2020-03-21] MEDS: POTASSIUM CHLORIDE 10 MEQ in WATER FOR INJECTION 1 100ML.BAG IVPB SCH ×2 (08:19→10:01)
[2020-03-21] MEDS: ESCITALOPRAM 10 MG TAB PO SCH (08:20)
[2020-03-21] MEDS: METOPROLOL TARTRATE 50 MG TAB PO SCH ×2 (08:20→20:25)
[2020-03-21] MEDS: FUROSEMIDE 10 MG/ML 4 ML VIAL IV SCH ×2 (08:20→20:32)
[2020-03-21] MEDS: LINAGLIPTIN 5 MG TABLET PO SCH (08:20)
[2020-03-21] MEDS: MAGNESIUM OXIDE 400 MG TAB PO SCH (08:20)
[2020-03-21] MEDS: PANTOPRAZOLE 40 MG/10 ML VIAL IVP SCH ×2 (08:20→20:26)
[2020-03-21] MEDS: ISOSORBIDE MONONITRATE ER 30 MG TAB.ER.24H PO SCH (08:20)
[2020-03-21] MEDS: buPROPion XL 150 MG TAB.ER.24H PO SCH (08:20)
[2020-03-21] MEDS: ENOXAPARIN 30 MG/0.3 ML SYRINGE SQ SCH (08:20)
[2020-03-21] MEDS: LIDOCAINE 5% PATCH TOPICAL SCH (08:21)
[2020-03-21] MEDS: FAT EMULSION 20% 250 ML IV SCH (10:01)
[2020-03-21] MEDS: PARENTERAL ELECTROLYTES 20 ML, MVI, ADULT NO.4 WITH VIT K 10 ML, TRACE (CONC-1ML/DOSE) ... IV SCH ×5 (10:02)
[2020-03-21 12:28] LABS: Glucose,Whole Blood 229 mg/dL (75-99)
--- NOTE | 2020-03-21 12:58 | P.PN ---
Subjective Progress Note Date: 03/21/20 Principal diagnosis: his is a 74-year-old white male with history of multiple medical problems, I saw this patient recently for cold 19 pneumonitis. I also saw the patient for right hip fracture requiring surgery and the fracture was secondary to fall. Patient was eventually discharged to [facility] on the abbasi. And he was brought in this morning mostly complaining of bloody stools, blood-tinged sputum, and hematuria. Yesterday his hemoglobin was 6.8, however today his hemoglobin was noted to be as low as 5.3 on admission. Patient was on Eliquis for atrial fibrillation, and upon evaluation in the ER, patient was placed on Kcentra, transfused a total of 2 units of packed RBCs so far, and his Eliquis was placed on hold. The patient is not a great historian, however he denies any chest pain, denies any fever, no chills, he had occasional episodes of blood-tinged sputum, denies any nausea vomiting abdominal pain. 2 units of packed RBCs were given since admission, re peat hemoglobin is pending. Reviewing his last admission, patient was discharged on 03/09, he had the right in situ screw fixation a nondisplaced right femoral neck fracture. His other medical problems included hypoxic respiratory failure secondary to chronic diastolic dysfunction, severe pulmonary hypertension, covid 19 pneumonitis, diabetes, hypertension, chronic hypoxic respiratory failure secondary to COPD, normally he is on option at 2 L. And he is also known to have history of cognitive impairment/dementia. Reevaluated today on 03/16/20, patient remains in the ICU. Patient dropped his hemoglobin down to 6.8 today. Continues to have intermittent episodes of maroon colored stools. Patient is supposed to be receiving 1 unit of packed RBCs today. Remains on IV fluid at KVO, oxygen at 4 L/m and his O2 saturation is 100%. Remains on empiric antibiotics in the form of Zosyn and Levaquin. Patient had a marginal urine output hence I have recommended after he receives the blood transfusion to be given at least 40 mg of Lasix IV push 1. So far the patient has received 3 units of packed RBCs since admission. Electrolytes are normal BUN is 51 creatinine 2.10 WBC count is 6.9. Chest x-ray continues to show bilateral pleural effusions, right midlung and right lower lobe opacity, patient had recent pneumonia secondary to Covid 19 pneumonitis. Reevaluated today on 03/17/20, patient remains in the ICU, continues to have intermittent episodes of maroon colored stools. Hemoglobin however is holding, it is 8.3 today, and it was 8.0 yesterday. Patient received a total of 3 units of packed RBCs since admission. EGD was not performed yesterday, no note from gastroenterology today whether patient is going to have EGD or colonoscopy or both. According to the note from yesterday, decision on endoscopic evaluation will be decided upon pending clinical course. In the meantime I will plan to transfer the patient out of the ICU to a regular medical floor, and continue same treatment plan. Reevaluated today on 03/18/20, patient remains in the ICU, he is presently an overflow. Doing fairly well, had one maroon stool last night, and he received a total of 3 units of packed RBCs since admission. Patient is feeling better, breathing a lot easier, however he remains on 5 L nasal cannula without O2 saturation of 98%, chest x-ray showed bilateral pleural effusions, ultrasound of the chest showed a good sized right-sided pleural effusion, large enough to be tapped and drained. Considering the patient remains on relatively high FiO2, I would proceed with thoracentesis today on this patient. In the meantime we'll continue present supportive care measures. Chest x-ray ultrasound and labs were all reviewed. No plans by gastroenterology to perform endoscopic evaluation at this point. On 03/19/2020 patient is seen in follow-up in the intensive care unit, he is mendoza iting a bed on selective care, he has been an overflow status for last 2 days. Vital signs are stable, no worsening dyspnea. He remains on 6 L of oxygen with a pulse ox of 95-96%, hemodynamically stable, his been afebrile, his respirations are nonlabored, breathing is comfortable. His hemoglobin is 9.3, and he received a total of 3 units of blood during this admission. His Eliquis remains on hold, GI service is following, and apparently patient refused to have any endoscopic intervention at this time. In the meantime patient continues to have some intermittent dark colored stools and had one early this morning, no abdominal pain, no nausea or vomiting. No tachycardia. Patient has been started on TPN infusion for nutrition. He is tolerating clear liquid diet. Yesterday patient underwent right-sided thoracentesis with removal of 1 L of light jimmie-colored fluid. Pleural fluid analysis shows transudate based on the LDH and protein content. Cultures are pending so far. She remains on IV Lasix of 40 mg every 12 hours and he is in -2000 and fluid balance over the last 24 hours. Yesterday chest x-ray following his right-sided thoracentesis showed improvement in aeration of the right lower lobe, no new chest x-ray today. Clinically patient is doing well, he's been up in the chair, tolerates activity well, he is generally weak. He remains on empiric antibiotics in the form of Zosyn. The patient is seen today 03/20/2020 in follow-up on the selective care unit. He is currently sitting up in bed. Awake and alert in no acute distress. He is having ongoing issues with shortness of breath and dyspnea on exertion. He is maintaining good O2 saturations in the mid 90s on a Ventimask. He. Hemodynamically stable. Today's chest x-ray shows similar findings compared to previous. There is perihilar and bibasilar increase attenuation. Correlate for congestive heart failure versus pneumonia with associated effusions. White count 8.0. Hemoglobin 9.3. Sodium 135. Potassium 3.9. Creatinine 2.08. He remains on Lasix 40 mg IV every 12 hours. Bronchodilators. Antibiotics in the form of Zosyn. Pleural fluid analysis was transudative in nature with a LDH of 82 and a total protein of 1.6. The patient is seen today 03/21/2020 in follow-up on the selective care unit. He is currently resting in bed. Awake and alert in no acute distress. He is maintaining O2 saturations up to 100% on 4 L/m per nasal cannula. He is afebrile. Hemodynamically stable. Thoracic fluid cultures reveal no growth. Blood cultures no growth. White count 8.0. Hemoglobin 8.7. Sodium 136. Potassium 3.6. Creatinine 2.22. Glucose 172. Remains on Lasix 40 mg IV every 12 hours. Continued on antibiotics in the form of Zosyn. Objective - Vital Signs Vital signs: Vital Signs Temp 98.1 F 03/21/20 11:48 Pulse 78 03/21/20 11:48 Resp 18 03/21/20 11:48 BP 134/68 03/21/20 11:48 Pulse Ox 100 03/21/20 11:48 Intake & Output 03/20/20 03/21/20 03/21/20 18:59 06:59 18:59 Intake Total 0982 753 3636 Output Total 400 800 Balance 641 -260 1581 Weight 78.5 kg 78.5 kg Intake: Intake, IV Titration 1041 1041 Amount Parenteral Electrolytes 1041 1041 20 ml Mvi, Adult No.4 with Vit K 10 ml Trace ( Conc-1Ml/Dose) 1 ml Potassium Chloride 20 meq In Amino Acid 4.25%-D10w 1,000 ml @ 50 mls/hr IV .[id number] [facility] Rx#: [id number] Oral 540 540 Output: Urine 400 800 Other: Voiding Method Indwelling Catheter Indwelling Catheter Indwelling Catheter # Bowel Movements 1 - Exam GENERAL EXAM: Alert, very pleasant, 74-year-old male patient, currently on 4 L nasal cannula pulse ox of 100% comfortable in no apparent distress. HEAD: Normocephalic/atraumatic. EYES: Normal reaction of pupils, equal size. Conjunctiva pink, sclera white. NOSE: Clear with pink turbinates. THROAT: No erythema or exudates. NECK: No masses, no JVD, no thyroid enlargement, no adenopathy. CHEST: No chest wall deformity. Symmetrical expansion. LUNGS: Equal air entry with crackles in the bilateral posterior bases, diminished CVS: Regular rate and rhythm, normal S1 and S2, no gallops, no murmurs, no rubs ABDOMEN: Soft, nontender. No hepatosplenomegaly, normal bowel sounds, no guarding or rigidity. EXTREMITIES: No clubbing, no edema, no cyanosis, 2+ pulses and upper and lower extremities. MUSCULOSKELETAL: Muscle strength and tone normal. SPINE: No scoliosis or deformity SKIN: No rashes CENTRAL NERVOUS SYSTEM: No focal deficits, tone is normal in all 4 extremities. PSYCHIATRIC: Alert and oriented -3. Appropriate affect. Intact judgment and insight. - Labs CBC & Chem 7: 03/21/20 05:33 03/21/20 05:33 Labs: Abnormal Lab Results - Last 24 Hours (Table) 03/20/20 03/20/20 03/21/20 Range/Units 16:48 20:46 05:33 RBC (4.30-5.90) m/uL Hgb (13.0-17.5) gm/dL Hct (39.0-53.0) % MCHC (31.0-37.0) g/dL RDW (11.5-15.5) % Lymphocytes # (1.0-4.8) k/uL Sodium 136 L (137-145) mmol/L Chloride 97 L (98-107) mmol/L Carbon Dioxide 34 H (22-30) mmol/L BUN 42 H (9-20) mg/dL Creatinine 2.22 H (0.66-1.25) mg/dL Glucose 172 H (74-99) mg/dL POC Glucose (mg/dL) 229 H 215 H (75-99) mg/dL Calcium 8.1 L (8.4-10.2) mg/dL AST 14 L (17-59) U/L Total Protein 5.0 L (6.3-8.2) g/dL Albumin 2.4 L (3.5-5.0) g/dL 03/21/20 03/21/20 03/21/20 Range/Units 05:33 06:13 12:26 RBC 3.22 L (4.30-5.90) m/uL Hgb 8.7 L (13.0-17.5) gm/dL Hct 29.1 L (39.0-53.0) % MCHC 29.7 L (31.0-37.0) g/dL RDW 19.4 H (11.5-15.5) % Lymphocytes # 0.6 L (1.0-4.8) k/uL Sodium (137-145) mmol/L Chloride (98-107) mmol/L Carbon Dioxide (22-30) mmol/L BUN (9-20) mg/dL Creatinine (0.66-1.25) mg/dL Glucose (74-99) mg/dL POC Glucose (mg/dL) 203 H 229 H (75-99) mg/dL Calcium (8.4-10.2) mg/dL AST (17-59) U/L Total Protein (6.3-8.2) g/dL Albumin (3.5-5.0) g/dL Microbiology - Last 24 Hours (Table) 03/15/20 06:35 Blood Culture - Final Blood No Growth after 144 hours 03/18/20 13:20 Gram Stain - Preliminary Thoracic Fluid Body Fluid Culture - Preliminary Assessment and Plan Assessment: #1. Acute GI bleed, likely related to lower GI tract source, most likely secondary to diverticular disease worsened by anticoagulation in the form of Eliquis #2. Acute GI blood loss anemia, patient required transfusion with 3 units of packed red blood cells #3. Recent history of COVID 19 infection #4. Severe pulmonary hypertension #5. Chronic hypoxic respiratory failure related to COPD, chronic diastolic congestive heart failure and COVID 19 pneumonitis #6. Bilateral pleural effusions, status post right-sided thoracentesis on 03/18/2020 with removal of 1 L of light colored jimmie fluid, based on the protein and LDH level the fluid is transudative, related to acute exacerbation of CHF #7. Chronic atrial fibrillation was on Eliquis which is on hold right now related to acute GI bleeding #8. Acute on chronic failure #9. History of dementia #10. Type 2 diabetes mellitus #11. Benign essential hypertension #12. Dyslipidemia #13. Severe COPD, oxygen dependent, quit smoking 3 years ago #14. Chronic medical debility and deconditioning related to recent history of multiple hospitalizations, multiple comorbidities Plan: The patient was seen and evaluated by Dr. Ramos Continue current treatment plan Titrate down the FiO2 as tolerated Follow-up chest x-ray in a.m. Overall prognosis remains guarded DO NOT RESUSCITATE/DO NOT INTUBATE CODE STATUS We will continue to follow and make further recommendations based on his clinical status I, the cosigning physician, performed a history & physical examination of the patient. Lungs sounds with crackles in the bilateral posterior bases, diminished. Maintaining good O2 saturations in the 90s on 4 L/m per nasal can nula. I discussed the assessment and plan of care with my nurse practitioner, Eveline Munguia. I attest to the above note as dictated by her.
[2020-03-21 17:03] LABS: Glucose,Whole Blood 140 mg/dL (75-99)
[2020-03-21 20:16] LABS: Glucose,Whole Blood 166 mg/dL (75-99)
[2020-03-21] MEDS: ATORVASTATIN 20 MG TAB PO SCH (20:25)
--- NOTE | 2020-03-21 23:04 | PN ---
PROGRESS NOTE DATE OF DICTATION: March 21, 2020. The patient is a 74-year-old pleasant white male admitted to hospital with pneumonia/exacerbation of COPD and GI bleed. As per the nursing staff, the patient did have any further episodes of GI bleeding in the last 24 hours. He continues to remain short of breath. He denies any abdominal pain. Reports no nausea, vomiting. He continues to remain on oxygen supplements. Continues to remain on oxygen supplements. He had thoracentesis by Dr. Ramos two days ago and since then, his bleeding slightly improved, but today he still is short of breath. Denies any fever, chills, or night sweats. PHYSICAL EXAMINATION: He appears comfortable. No apparent distress. VITAL SIGNS: Stable. Blood pressure 106/82, pulse rate 87, temperature 98. HEENT examination unremarkable. Conjunctivae pink. Sclerae anicteric. Oral cavity no lesions. NECK: No JVD or lymph node enlargement. CHEST: Decreased breath sounds bilaterally. HEART: Regular rate and rhythm. ABDOMEN: Soft. Bowel sounds are positive. No organomegaly. EXTREMITIES: No pedal edema. NEUROLOGIC: Alert and oriented x3. No focal deficits. LABS: From today WBC 8, hemoglobin 8.7, platelets normal. Basic metabolic panel is within normal limits. BUN is 43 and creatinine 2.22. IMPRESSION: 1. Acute gastrointestinal bleed. The patient had multiple episodes of dark-colored and maroon colored stools at the time of admission to the hospital. Eliquis has been on hold and the bleeding has subsided. The patient refuses any endoscopy intervention initially. 2. Worsening shortness of breath, presently on O2 supplements. Still remains tachypneic. 3. Bilateral pleural effusion status post thoracentesis a few days ago. 4. Atrial fibrillation on Eliquis, currently on hold. 5. Chronic kidney disease. 6. History of severe pulmonary hypertension. RECOMMENDATIONS: 1. Continue with symptomatic and supportive care. 2. Monitor CBC on a daily basis. 3. Continue to hold Eliquis. 4. At this time, we will continue with conservative approach as patient refuses to have any endoscopy intervention. We will follow with you closely. Thank you for this consultation. MMODL / IJN: [id number] /
[2020-03-22] MEDS: ALPRAZolam 0.25 MG TAB PO PRN ×2 (05:16→11:50)
[2020-03-22] MEDS: hydrALAZINE HCL 25 MG TAB PO SCH ×3 (05:16→21:30)
[2020-03-22] MEDS: HYDROcodone/APAP 5-325MG 1 EACH TAB PO PRN ×3 (05:18→21:26)
[2020-03-22 06:11] LABS: Glucose,Whole Blood 186 mg/dL (75-99)
[2020-03-22] MEDS: INSULIN ASPART (NovoLOG) 100 UNIT/ML VIAL SQ SCH ×4 (06:31→21:31)
[2020-03-22 06:47] LABS: Anisocytosis Slight; Basophils % (A) 0 %; Eosinophils # (A) 0.1 k/uL (0-0.7); Eosinophils % (A) 1 %; HCT 28.6 % (39.0-53.0); HGB 8.4 gm/dL (13.0-17.5); Hypochromasia Marked; Lymphocytes # (A) 0.6 k/uL (1.0-4.8); Lymphocytes % (A) 7 %; MCH 26.9 pg (25.0-35.0); MCHC 29.4 g/dL (31.0-37.0); MCV 91.4 fL (80.0-100.0); Mean Platelet Volume 8.7; Monocytes # (A) 0.5 k/uL (0-1.0); Monocytes % (A) 6 %; Neutrophils # (A) 6.2 k/uL (1.3-7.7); Neutrophils % (A) 83 %; Platelet Count 150 k/uL (150-450); Poikilocytosis Slight; RBC 3.13 m/uL (4.30-5.90); RDW 19.1 % (11.5-15.5); WBC 7.5 k/uL (3.8-10.6)
[2020-03-22 06:58] LABS: Albumin 2.4 g/dL (3.5-5.0); Calcium 8.1 mg/dL (8.4-10.2); Phosphorus 2.9 mg/dL (2.5-4.5); Potassium 4.1 mmol/L (3.5-5.1); Total Bilirubin 0.4 mg/dL (0.2-1.3)
--- NOTE | 2020-03-22 07:23 | P.PN ---
Subjective Progress Note Date: 03/22/20 Principal diagnosis: Hospital course a 4-year-old male current resident at [facility] subacute rehab, although to the practice. Past medical history of pulmonary hypertensio n, hypertension, hyperlipidemia, diabetes mellitus type 2, COPD, stage III chronic renal insufficiency, recent code. 19 pneumonitis and recent right hip fracture with surgical repair. Montral cognitive scoring at [facility] was 11 out of 30 which was completed in October 2019. On to 11/17/2019 admitted to the emergency room with a hemoglobin I.3, hypoxic requiring a nonrebreather. She had recently received both our request and was placed on aspirin 03/20/2020 74-year-old male, currently sitting up in bed on 60% Ventimask. Chest x-ray for today questions his pneumonia with associated effusions. Denies pain but does complain of nasal passage "being stopped up". Last vomiting was this morning color was dark but not maroon. Denies abdominal pain at this time bowel sounds are active 4. Understanding GI had discussed endoscopy, patient unsure if he wanted it to be done. Current vital signs blood pressure 154/82. 91 respiratory rate 24, afebrile 98.2, satting 95% Ventimask and 8 L. Today's lab work WBC count of 8.0 hemoglobin of 9.3, hematocrit of 3 0.4, platelet count of 215. Chemistry sodium 135, potassium 3.9, chloride 97, BUN of 43, creatinine of 2.08 and glucose is 22, albumin of 2.5. 03/21/2020 74-year-old male currently laying in bed in no acute distress. Denies pain or abdominal discomfort, but states he feels his nose is stuffed up. He also makes mention that he does get short of breath with exertion at times and that he gets anxious. Today's on 5 L nasal cannula with humidification oxygen saturations are in the mid 90s. Current vitals afebrile 90 7., heart rate 77, respiratory rate of 20, blood pressure on right arm 133/68, oxygen saturation 99. Chem panel this morning 136 sodium, potassium 3.6, BUN of 42, creatinine 2.2 to, glucose 172, AST 14, ALP 7. 03/22/2020 patient is currently resting in bed asleep but easily arousable. On 5 L nasal cannula humidified attaining oxygen saturation is 98 to 100%. Vital signs morning 97.9 oral pulse rate is 70, respiratory rate of 20, right arm blood pressure 137/62. Chemistry panel. Today sodium is 135, potassium 4.1, TITI 45, creatinine 2.17, glucoses morning 167. Blood cultures and thoracic fluid revealed no growth this time currently remains on 40 mg IV Lasix every 12 hours and Zosyn for empiric antibiotic coverage Objective - Vital Signs Vital signs: Vital Signs Temp 97.9 F 03/22/20 04:00 Pulse 70 03/22/20 04:00 Resp 20 03/22/20 04:00 BP 137/62 03/22/20 04:00 Pulse Ox 98 03/22/20 04:00 Intake & Output 03/21/20 03/22/20 03/22/20 18:59 06:59 18:59 Intake Total 1581 Output Total 925 750 Balance 656 -750 Weight 78.5 kg 77.6 kg Intake: Intake, IV Titration 1041 Amount Parenteral Electrolytes 1041 20 ml Mvi, Adult No.4 with Vit K 10 ml Trace ( Conc-1Ml/Dose) 1 ml Potassium Chloride 20 meq In Amino Acid 4.25%-D10w 1,000 ml @ 50 mls/hr IV .[id number] [facility] Rx#: [id number] Oral 540 Output: Urine 925 750 Other: Voiding Method Indwelling Catheter Indwelling Catheter - Exam GENERAL: asleep in bed but easily arousable, no acute distress, alert and oriented 2. HEAD: Atraumatic, normocephalic. EYES: Pupils equal round and reactive to light, extraocular movements intact, sclera anicteric, conjunctiva are normal. ENT:nares patent, oropharynx clear without exudates. Moist mucous membranes. NECK: Normal range of motion, supple without lymphadenopathy or JVD, no thyromegaly LUNGS: Breath sounds diminished throughout with fine crackles in the bases. No wheezes rales or rhonchi. HEART: Regular rate and rhythm without murmurs, rubs or gallops.S1S2 Normal ABDOMEN: Soft, nontender, normoactive bowel sounds. No guarding, no rebound. No masses appreciated. EXTREMITIES: Normal range of motion, no pitting or edema. No clubbing or cyanosis, left hand with first and second digit missing. NEUROLOGICAL: Cranial nerves II through XII grossly intact. Normal speech, normal gait. PSYCH: Normal mood, normal affect. SKIN: Warm, Dry, normal turgor, no rashes or lesions noted. - Labs CBC & Chem 7: 03/22/20 05:52 03/22/20 05:52 Labs: Abnormal Lab Results - Last 24 Hours (Table) 03/21/20 03/21/20 03/21/20 Range/Units 05:33 12:26 17:02 RBC 3.22 L (4.30-5.90) m/uL Hgb 8.7 L (13.0-17.5) gm/dL Hct 29.1 L (39.0-53.0) % MCHC 29.7 L (31.0-37.0) g/dL RDW 19.4 H (11.5-15.5) % Lymphocytes # 0.6 L (1.0-4.8) k/uL Sodium (137-145) mmol/L Chloride (98-107) mmol/L Carbon Dioxide (22-30) mmol/L BUN (9-20) mg/dL Creatinine (0.66-1.25) mg/dL Glucose (74-99) mg/dL POC Glucose (mg/dL) 229 H 140 H (75-99) mg/dL Calcium (8.4-10.2) mg/dL Total Protein (6.3-8.2) g/dL Albumin (3.5-5.0) g/dL 03/21/20 03/22/20 03/22/20 Range/Units 20:15 05:52 05:52 RBC 3.13 L (4.30-5.90) m/uL Hgb 8.4 L (13.0-17.5) gm/dL Hct 28.6 L (39.0-53.0) % MCHC 29.4 L (31.0-37.0) g/dL RDW 19.1 H (11.5-15.5) % Lymphocytes # 0.6 L (1.0-4.8) k/uL Sodium 135 L (137-145) mmol/L Chloride 97 L (98-107) mmol/L Carbon Dioxide 31 H (22-30) mmol/L BUN 45 H (9-20) mg/dL Creatinine 2.17 H (0.66-1.25) mg/dL Glucose 167 H (74-99) mg/dL POC Glucose (mg/dL) 166 H (75-99) mg/dL Calcium 8.1 L (8.4-10.2) mg/dL Total Protein 5.0 L (6.3-8.2) g/dL Albumin 2.4 L (3.5-5.0) g/dL 03/22/20 Range/Units 06:09 RBC (4.30-5.90) m/uL Hgb (13.0-17.5) gm/dL Hct (39.0-53.0) % MCHC (31.0-37.0) g/dL RDW (11.5-15.5) % Lymphocytes # (1.0-4.8) k/uL Sodium (137-145) mmol/L Chloride (98-107) mmol/L Carbon Dioxide (22-30) mmol/L BUN (9-20) mg/dL Creatinine (0.66-1.25) mg/dL Glucose (74-99) mg/dL POC Glucose (mg/dL) 186 H (75-99) mg/dL Calcium (8.4-10.2) mg/dL Total Protein (6.3-8.2) g/dL Albumin (3.5-5.0) g/dL Microbiology - Last 24 Hours (Table) 03/15/20 06:35 Blood Culture - Final Blood No Growth after 144 hours 03/18/20 13:20 Gram Stain - Preliminary Thoracic Fluid Body Fluid Culture - Preliminary Assessment and Plan (1) Anemia associated with acute blood loss Current Visit: Yes Status: Acute Code(s): D62 - ACUTE POSTHEMORRHAGIC ANEMIA SNOMED Code(s): 430927477 (2) GI bleed Current Visit: Yes Status: Acute Code(s): K92.2 - GASTROINTESTINAL HEMORRHAGE, UNSPECIFIED SNOMED Code(s): 96361448 (3) Pneumonia Current Visit: Yes Status: Acute Code(s): J18.9 - PNEUMONIA, UNSPECIFIED ORGANISM SNOMED Code(s): 582905587 (4) Acute kidney injury Current Visit: No Status: Acute Code(s): N17.9 - ACUTE KIDNEY FAILURE, UNSPECIFIED SNOMED Code(s): 48750209 (5) CHF (congestive heart failure) Current Visit: No Status: Acute Code(s): I50.9 - HEART FAILURE, UNSPECIFIED SNOMED Code(s): 03201555 (6) Chronic diastolic CHF (congestive heart failure), NYHA class 2 Current Visit: No Status: Acute Code(s): I50.32 - CHRONIC DIASTOLIC (CONGESTIVE) HEART FAILURE SNOMED Code(s): 570734758 (7) Chronic renal failure Current Visit: No Status: Acute Code(s): N18.9 - CHRONIC KIDNEY DISEASE, UNSPECIFIED SNOMED Code(s): 37943436 (8) Closed right hip fracture Current Visit: No Status: Acute Code(s): S72.001A - FRACTURE OF UNSP PART OF NECK OF RIGHT FEMUR, INIT SNOMED Code(s): 978455489 (9) Diabetes mellitus Current Visit: No Status: Acute Code(s): E11.9 - TYPE 2 DIABETES MELLITUS WITHOUT COMPLICATIONS SNOMED Code(s): 34630313 (10) Hypercholesterolemia Current Visit: No Status: Acute Code(s): E78.00 - PURE HYPERCHOLESTEROLEMIA, UNSPECIFIED SNOMED Code(s): 51739086 (11) Hyperlipidemia Current Visit: No Status: Acute Code(s): E78.5 - HYPERLIPIDEMIA, UNSPECIFIED SNOMED Code(s): 79474359 (12) Poor historian Current Visit: No Status: Acute Code(s): Z78.9 - OTHER SPECIFIED HEALTH STATUS SNOMED Code(s): 837559450 (13) Recurrent major depression Current Visit: No Status: Acute Code(s): F33.9 - MAJOR DEPRESSIVE DISORDER, RECURRENT, UNSPECIFIED SNOMED Code(s): 82854323 (14) Respiratory distress Current Visit: No Status: Acute Code(s): R06.03 - ACUTE RESPIRATORY DISTRESS SNOMED Code(s): 718057054 (15) Sinus tachycardia Current Visit: No Status: Acute Code(s): R00.0 - TACHYCARDIA, UNSPECIFIED SNOMED Code(s): 79424386 Plan: 1. Continue on clear liquid liquid diet. 2. Daily labs and repeat chest x-ray in a.m. 3. We'll recheck complete blood count this morning 4. Continued oxygen and titrate to maintain oxygen sats greater than 93% 5. Continue IV Lasix. 6. Continue accurate I&O. 7. Continue antibiotics as written 8. Continue to follow pulmonology recommendations. 9. Incentive spirometry at bedside to be used 10 times an hour while awake. 10. Increase activity as tolerated, up in chair as tolerated by patient 11. We'll follow closely and see tomorrow Time with Patient: Greater than 30
--- NOTE | 2020-03-22 07:52 | XR ---
EXAMINATION TYPE: XR chest 1V portable DATE OF EXAM: 03/22/2020 COMPARISON: Prior chest x-ray 03/20/2020 HISTORY: Shortness of breath TECHNIQUE: Single frontal view of the chest is obtained. FINDINGS: The heart is enlarged. There is persistent pleural thickening, blunting the right costophr enic angle. Left hemidiaphragm and portions of the right hemidiaphragm are obscured. Interstitium is increased. Aorta is dense. No pneumothorax. Central vascularity is prominent. IMPRESSION: Correlate for congestive heart failure with associated effusions.
[2020-03-22] MEDS: ALBUTEROL NEBULIZED 2.5 MG/3 ML INHALATION PRN ×3 (07:54→21:03)
[2020-03-22] MEDS: FUROSEMIDE 10 MG/ML 4 ML VIAL IV SCH ×2 (08:24→21:31)
[2020-03-22] MEDS: PANTOPRAZOLE 40 MG/10 ML VIAL IVP SCH ×2 (08:24→21:30)
[2020-03-22] MEDS: buPROPion XL 150 MG TAB.ER.24H PO SCH (08:25)
[2020-03-22] MEDS: LINAGLIPTIN 5 MG TABLET PO SCH (08:25)
[2020-03-22] MEDS: PIPERACILLIN-TAZOBACTAM 3.375 GM in SODIUM CHLORIDE 0.9% 100 ML IVPB SCH (08:25)
[2020-03-22] MEDS: ENOXAPARIN 30 MG/0.3 ML SYRINGE SQ SCH (08:25)
[2020-03-22] MEDS: ESCITALOPRAM 10 MG TAB PO SCH (08:25)
[2020-03-22] MEDS: METOPROLOL TARTRATE 50 MG TAB PO SCH ×2 (08:26→21:30)
[2020-03-22] MEDS: ISOSORBIDE MONONITRATE ER 30 MG TAB.ER.24H PO SCH (08:26)
[2020-03-22] MEDS: MAGNESIUM OXIDE 400 MG TAB PO SCH (08:26)
[2020-03-22] MEDS: LIDOCAINE 5% PATCH TOPICAL SCH (08:30)
--- NOTE | 2020-03-22 10:54 | PN ---
PROGRESS NOTE DATE OF DICTATION: March 22, 2020 Patient is a 74-year-old pleasant white male admitted to hospital with acute GI bleed, received 3 units of blood transfusion, doing better, Eliquis is on hold and no further episodes of bleeding. He continues to have shortness of breath and remains on nasal cannula and his breathing is somewhat better today. He denies any abdominal pain. Reports no nausea, vomiting. No further episodes of bleeding. PHYSICAL EXAMINATION: He is slightly short of breath. VITAL SIGNS: Stable. Blood pressure is 135/76, pulse 81, temperature 97.6, and respirations 20. HEENT examination unremarkable. Conjunctivae pink. Sclerae anicteric. Oral cavity no lesions. NECK: No JVD or lymph node enlargement. CHEST: Decreased breath sounds bilaterally. HEART: Regular rate and rhythm. ABDOMEN: Soft. Bowel sounds are positive. No organomegaly. EXTREMITIES: No pedal edema. NEUROLOGIC: Alert and oriented x3. No focal deficits. LABS: From today WBC 7.5, hemoglobin 8.4, platelets 150. BUN is 45, creatinine 2.17. IMPRESSION: 1. Acute gastrointestinal bleed, resolved Eliquis continues to be on hold. Hemoglobin remains stable at 8.3. He is status post 3 units of blood transfusion so far. The patient continues to refuse endoscopy evaluation during this hospitalization. 2. Exacerbation of chronic obstructive pulmonary disease/congestive heart failure. Dr. Ramos following the patient closely. 3. Atrial fibrillation, Eliquis on hold. 4. Chronic kidney disease. 5. Recent history of COVID-19 infection, resolved. RECOMMENDATIONS: 1. We will advance diet to a heart healthy diet. 2. Monitor CBC on a daily basis. 3. Continue Protonix 40 mg daily. 4. We will follow up with you closely. Thank you for this consultation. MMODL / IJN: [id number] /
[2020-03-22 12:10] LABS: Glucose,Whole Blood 193 mg/dL (75-99)
[2020-03-22] MEDS: PARENTERAL ELECTROLYTES 20 ML, MVI, ADULT NO.4 WITH VIT K 10 ML, TRACE (CONC-1ML/DOSE) ... IV SCH ×5 (12:39)
[2020-03-22] MEDS: FAT EMULSION 20% 250 ML IV SCH (12:40)
--- NOTE | 2020-03-22 13:56 | P.PN ---
Subjective Progress Note Date: 03/22/20 Principal diagnosis: his is a 74-year-old white male with history of multiple medical problems, I saw this patient recently for cold 19 pneumonitis. I also saw the patient for right hip fracture requiring surgery and the fracture was secondary to fall. Patient was eventually discharged to [facility] on the abbasi. And he was brought in this morning mostly complaining of bloody stools, blood-tinged sputum, and hematuria. Yesterday his hemoglobin was 6.8, however today his hemoglobin was noted to be as low as 5.3 on admission. Patient was on Eliquis for atrial fibrillation, and upon evaluation in the ER, patient was placed on Kcentra, transfused a total of 2 units of packed RBCs so far, and his Eliquis was placed on hold. The patient is not a great historian, however he denies any chest pain, denies any fever, no chills, he had occasional episodes of blood-tinged sputum, denies any nausea vomiting abdominal pain. 2 units of packed RBCs were given since admission, re peat hemoglobin is pending. Reviewing his last admission, patient was discharged on 03/09, he had the right in situ screw fixation a nondisplaced right femoral neck fracture. His other medical problems included hypoxic respiratory failure secondary to chronic diastolic dysfunction, severe pulmonary hypertension, covid 19 pneumonitis, diabetes, hypertension, chronic hypoxic respiratory failure secondary to COPD, normally he is on option at 2 L. And he is also known to have history of cognitive impairment/dementia. Reevaluated today on 03/16/20, patient remains in the ICU. Patient dropped his hemoglobin down to 6.8 today. Continues to have intermittent episodes of maroon colored stools. Patient is supposed to be receiving 1 unit of packed RBCs today. Remains on IV fluid at KVO, oxygen at 4 L/m and his O2 saturation is 100%. Remains on empiric antibiotics in the form of Zosyn and Levaquin. Patient had a marginal urine output hence I have recommended after he receives the blood transfusion to be given at least 40 mg of Lasix IV push 1. So far the patient has received 3 units of packed RBCs since admission. Electrolytes are normal BUN is 51 creatinine 2.10 WBC count is 6.9. Chest x-ray continues to show bilateral pleural effusions, right midlung and right lower lobe opacity, patient had recent pneumonia secondary to Covid 19 pneumonitis. Reevaluated today on 03/17/20, patient remains in the ICU, continues to have intermittent episodes of maroon colored stools. Hemoglobin however is holding, it is 8.3 today, and it was 8.0 yesterday. Patient received a total of 3 units of packed RBCs since admission. EGD was not performed yesterday, no note from gastroenterology today whether patient is going to have EGD or colonoscopy or both. According to the note from yesterday, decision on endoscopic evaluation will be decided upon pending clinical course. In the meantime I will plan to transfer the patient out of the ICU to a regular medical floor, and continue same treatment plan. Reevaluated today on 03/18/20, patient remains in the ICU, he is presently an overflow. Doing fairly well, had one maroon stool last night, and he received a total of 3 units of packed RBCs since admission. Patient is feeling better, breathing a lot easier, however he remains on 5 L nasal cannula without O2 saturation of 98%, chest x-ray showed bilateral pleural effusions, ultrasound of the chest showed a good sized right-sided pleural effusion, large enough to be tapped and drained. Considering the patient remains on relatively high FiO2, I would proceed with thoracentesis today on this patient. In the meantime we'll continue present supportive care measures. Chest x-ray ultrasound and labs were all reviewed. No plans by gastroenterology to perform endoscopic evaluation at this point. On 03/19/2020 patient is seen in follow-up in the intensive care unit, he is mendoza iting a bed on selective care, he has been an overflow status for last 2 days. Vital signs are stable, no worsening dyspnea. He remains on 6 L of oxygen with a pulse ox of 95-96%, hemodynamically stable, his been afebrile, his respirations are nonlabored, breathing is comfortable. His hemoglobin is 9.3, and he received a total of 3 units of blood during this admission. His Eliquis remains on hold, GI service is following, and apparently patient refused to have any endoscopic intervention at this time. In the meantime patient continues to have some intermittent dark colored stools and had one early this morning, no abdominal pain, no nausea or vomiting. No tachycardia. Patient has been started on TPN infusion for nutrition. He is tolerating clear liquid diet. Yesterday patient underwent right-sided thoracentesis with removal of 1 L of light jimmie-colored fluid. Pleural fluid analysis shows transudate based on the LDH and protein content. Cultures are pending so far. She remains on IV Lasix of 40 mg every 12 hours and he is in -2000 and fluid balance over the last 24 hours. Yesterday chest x-ray following his right-sided thoracentesis showed improvement in aeration of the right lower lobe, no new chest x-ray today. Clinically patient is doing well, he's been up in the chair, tolerates activity well, he is generally weak. He remains on empiric antibiotics in the form of Zosyn. The patient is seen today 03/20/2020 in follow-up on the selective care unit. He is currently sitting up in bed. Awake and alert in no acute distress. He is having ongoing issues with shortness of breath and dyspnea on exertion. He is maintaining good O2 saturations in the mid 90s on a Ventimask. He. Hemodynamically stable. Today's chest x-ray shows similar findings compared to previous. There is perihilar and bibasilar increase attenuation. Correlate for congestive heart failure versus pneumonia with associated effusions. White count 8.0. Hemoglobin 9.3. Sodium 135. Potassium 3.9. Creatinine 2.08. He remains on Lasix 40 mg IV every 12 hours. Bronchodilators. Antibiotics in the form of Zosyn. Pleural fluid analysis was transudative in nature with a LDH of 82 and a total protein of 1.6. The patient is seen today 03/21/2020 in follow-up on the selective care unit. He is currently resting in bed. Awake and alert in no acute distress. He is maintaining O2 saturations up to 100% on 4 L/m per nasal cannula. He is afebrile. Hemodynamically stable. Thoracic fluid cultures reveal no growth. Blood cultures no growth. White count 8.0. Hemoglobin 8.7. Sodium 136. Potassium 3.6. Creatinine 2.22. Glucose 172. Remains on Lasix 40 mg IV every 12 hours. Continued on antibiotics in the form of Zosyn. The patient is seen today 03/22/2020 in follow-up on the selective care unit. He remains awake and alert in no acute distress. Resting comfortably in bed. Sitting up having lunch. Still maintaining good O2 saturations in the high 90s on 8 L high flow nasal cannula. He is afebrile. Thoracentesis fluid cultures are negative. White count 7.5. Hemoglobin 8.4. Sodium 135. Potassium 4.1. Creatinine 2.17. Chest x-ray continues to show evidence of congestive heart failure with bilateral effusions. He remains on diuretics in the form of Lasix 40 mg IV every 12 hours. Continued on Zosyn. Objective - Vital Signs Vital signs: Vital Signs Temp 97.4 F L 03/22/20 11:52 Pulse 77 03/22/20 11:52 Resp 20 03/22/20 11:52 BP 144/76 03/22/20 11:52 Pulse Ox 100 03/22/20 11:52 Intake & Output 03/21/20 03/22/20 03/22/20 18:59 06:59 18:59 Intake Total 1581 1041 Output Total 925 750 750 Balance 656 291 -750 Weight 78.5 kg 77.6 kg Intake: Intake, IV Titration 1041 1041 Amount Parenteral Electrolytes 1041 1041 20 ml Mvi, Adult No.4 with Vit K 10 ml Trace ( Conc-1Ml/Dose) 1 ml Potassium Chloride 20 meq In Amino Acid 4.25%-D10w 1,000 ml @ 50 mls/hr IV .[id number] [facility] Rx#: [id number] Oral 540 Output: Urine 925 750 750 Other: Voiding Method Indwelling Catheter Indwelling Catheter Indwelling Catheter - Exam GENERAL EXAM: Alert, very pleasant, 74-year-old male patient, currently on 8 L nasal cannula pulse ox of 100% comfortable in no apparent distress. HEAD: Normocephalic/atraumatic. EYES: Normal reaction of pupils, equal size. Conjunctiva pink, sclera white. NOSE: Clear with pink turbinates. THROAT: No erythema or exudates. NECK: No masses, no JVD, no thyroid enlargement, no adenopathy. CHEST: No chest wall deformity. Symmetrical expansion. LUNGS: Equal air entry with crackles in the bilateral posterior bases, diminished CVS: Regular rate and rhythm, normal S1 and S2, no gallops, no murmurs, no rubs ABDOMEN: Soft, nontender. No hepatosplenomegaly, normal bowel sounds, no guarding or rigidity. EXTREMITIES: No clubbing, no edema, no cyanosis, 2+ pulses and upper and lower extremities. MUSCULOSKELETAL: Muscle strength and tone normal. SPINE: No scoliosis or deformity SKIN: No rashes CENTRAL NERVOUS SYSTEM: No focal deficits, tone is normal in all 4 extremities. PSYCHIATRIC: Alert and oriented -3. Appropriate affect. Intact judgment and insight. - Labs CBC & Chem 7: 03/22/20 05:52 03/22/20 05:52 Labs: Abnormal Lab Results - Last 24 Hours (Table) 03/21/20 03/21/20 03/22/20 Range/Units 17:02 20:15 05:52 RBC (4.30-5.90) m/uL Hgb (13.0-17.5) gm/dL Hct (39.0-53.0) % MCHC (31.0-37.0) g/dL RDW (11.5-15.5) % Lymphocytes # (1.0-4.8) k/uL Sodium 135 L (137-145) mmol/L Chloride 97 L (98-107) mmol/L Carbon Dioxide 31 H (22-30) mmol/L BUN 45 H (9-20) mg/dL Creatinine 2.17 H (0.66-1.25) mg/dL Glucose 167 H (74-99) mg/dL POC Glucose (mg/dL) 140 H 166 H (75-99) mg/dL Calcium 8.1 L (8.4-10.2) mg/dL Total Protein 5.0 L (6.3-8.2) g/dL Albumin 2.4 L (3.5-5.0) g/dL 03/22/20 03/22/20 03/22/20 Range/Units 05:52 06:09 12:00 RBC 3.13 L (4.30-5.90) m/uL Hgb 8.4 L (13.0-17.5) gm/dL Hct 28.6 L (39.0-53.0) % MCHC 29.4 L (31.0-37.0) g/dL RDW 19.1 H (11.5-15.5) % Lymphocytes # 0.6 L (1.0-4.8) k/uL Sodium (137-145) mmol/L Chloride (98-107) mmol/L Carbon Dioxide (22-30) mmol/L BUN (9-20) mg/dL Creatinine (0.66-1.25) mg/dL Glucose (74-99) mg/dL POC Glucose (mg/dL) 186 H 193 H (75-99) mg/dL Calcium (8.4-10.2) mg/dL Total Protein (6.3-8.2) g/dL Albumin (3.5-5.0) g/dL Microbiology - Last 24 Hours (Table) 03/18/20 13:20 Gram Stain - Final Thoracic Fluid Body Fluid Culture - Final 03/15/20 06:35 Blood Culture - Final Blood No Growth after 144 hours Assessment and Plan Assessment: #1. Acute GI bleed, likely related to lower GI tract source, most likely secondary to diverticular disease worsened by anticoagulation in the form of Eliquis #2. Acute GI blood loss anemia, patient required transfusion with 3 units of packed red blood cells #3. Recent history of COVID 19 infection #4. Severe pulmonary hypertension #5. Acute on chronic hypoxic respiratory failure related to COPD, chronic diastolic congestive heart failure and COVID 19 pneumonitis #6. Bilateral pleural effusions, status post right-sided thoracentesis on 03/18/2020 with removal of 1 L of light colored jimmie fluid, based on the protein and LDH level the fluid is transudative, related to acute exacerbation o f CHF #7. Chronic atrial fibrillation was on Eliquis which is on hold right now related to acute GI bleeding #8. Acute on chronic failure #9. History of dementia #10. Type 2 diabetes mellitus #11. Benign essential hypertension #12. Dyslipidemia #13. Severe COPD, oxygen dependent, quit smoking 3 years ago #14. Chronic medical debility and deconditioning related to recent history of multiple hospitalizations, multiple comorbidities Plan: The patient was seen and evaluated by Dr. Ramos Continue current treatment plan Titrate down the FiO2 as tolerated Overall prognosis remains guarded We will continue to follow and make further recommendations based on his clinical status I, the cosigning physician, performed a history & physical examination of the patient. Lungs sounds with crackles in the bilateral posterior bases, diminished. Maintaining good O2 saturations in the 90s on 8 L/m per nasal cannula. I discussed the assessment and plan of care with my nurse practitioner, Eveline Munguia. I attest to the above note as dictated by her.
[2020-03-22 17:20] LABS: Glucose,Whole Blood 145 mg/dL (75-99)
[2020-03-22 20:16] LABS: Glucose,Whole Blood 206 mg/dL (75-99)
[2020-03-22] MEDS: ATORVASTATIN 20 MG TAB PO SCH (21:30)
[2020-03-23] MEDS: PIPERACILLIN-TAZOBACTAM 3.375 GM in SODIUM CHLORIDE 0.9% 100 ML IVPB SCH (00:22)
[2020-03-23] MEDS: HYDROcodone/APAP 5-325MG 1 EACH TAB PO PRN ×3 (03:45→22:29)
[2020-03-23] MEDS: ALPRAZolam 0.25 MG TAB PO PRN ×2 (03:45→22:29)
[2020-03-23 06:15] LABS: Glucose,Whole Blood 223 mg/dL (75-99)
[2020-03-23] MEDS: INSULIN ASPART (NovoLOG) 100 UNIT/ML VIAL SQ SCH ×4 (07:09→22:30)
[2020-03-23] MEDS: hydrALAZINE HCL 25 MG TAB PO SCH ×3 (07:09→22:28)
[2020-03-23] MEDS: ALBUTEROL NEBULIZED 2.5 MG/3 ML INHALATION PRN ×4 (07:18→20:17)
[2020-03-23 07:47] LABS: Albumin 2.5 g/dL (3.5-5.0); Magnesium 2.1 mg/dL (1.6-2.3); Phosphorus 3.2 mg/dL (2.5-4.5); Potassium 3.9 mmol/L (3.5-5.1); Total Bilirubin 0.2 mg/dL (0.2-1.3); Total Protein 5.1 g/dL (6.3-8.2)
[2020-03-23] MEDS: buPROPion XL 150 MG TAB.ER.24H PO SCH (08:08)
[2020-03-23] MEDS: ESCITALOPRAM 10 MG TAB PO SCH (08:08)
[2020-03-23] MEDS: MAGNESIUM OXIDE 400 MG TAB PO SCH (08:08)
[2020-03-23] MEDS: PANTOPRAZOLE 40 MG/10 ML VIAL IVP SCH ×2 (08:09→22:31)
[2020-03-23] MEDS: FUROSEMIDE 10 MG/ML 4 ML VIAL IV SCH (08:09)
[2020-03-23] MEDS: ENOXAPARIN 30 MG/0.3 ML SYRINGE SQ SCH (08:09)
[2020-03-23] MEDS: ISOSORBIDE MONONITRATE ER 30 MG TAB.ER.24H PO SCH (08:09)
[2020-03-23] MEDS: LINAGLIPTIN 5 MG TABLET PO SCH (08:09)
[2020-03-23] MEDS: METOPROLOL TARTRATE 50 MG TAB PO SCH ×2 (08:09→22:28)
--- NOTE | 2020-03-23 10:19 | P.PN ---
Subjective Progress Note Date: 03/23/20 Principal diagnosis: his is a 74-year-old white male with history of multiple medical problems, I saw this patient recently for cold 19 pneumonitis. I also saw the patient for right hip fracture requiring surgery and the fracture was secondary to fall. Patient was eventually discharged to [facility] on the abbasi. And he was brought in this morning mostly complaining of bloody stools, blood-tinged sputum, and hematuria. Yesterday his hemoglobin was 6.8, however today his hemoglobin was noted to be as low as 5.3 on admission. Patient was on Eliquis for atrial fibrillation, and upon evaluation in the ER, patient was placed on Kcentra, transfused a total of 2 units of packed RBCs so far, and his Eliquis was placed on hold. The patient is not a great historian, however he denies any chest pain, denies any fever, no chills, he had occasional episodes of blood-tinged sputum, denies any nausea vomiting abdominal pain. 2 units of packed RBCs were given since admission, re peat hemoglobin is pending. Reviewing his last admission, patient was discharged on 03/09, he had the right in situ screw fixation a nondisplaced right femoral neck fracture. His other medical problems included hypoxic respiratory failure secondary to chronic diastolic dysfunction, severe pulmonary hypertension, covid 19 pneumonitis, diabetes, hypertension, chronic hypoxic respiratory failure secondary to COPD, normally he is on option at 2 L. And he is also known to have history of cognitive impairment/dementia. Reevaluated today on 03/16/20, patient remains in the ICU. Patient dropped his hemoglobin down to 6.8 today. Continues to have intermittent episodes of maroon colored stools. Patient is supposed to be receiving 1 unit of packed RBCs today. Remains on IV fluid at KVO, oxygen at 4 L/m and his O2 saturation is 100%. Remains on empiric antibiotics in the form of Zosyn and Levaquin. Patient had a marginal urine output hence I have recommended after he receives the blood transfusion to be given at least 40 mg of Lasix IV push 1. So far the patient has received 3 units of packed RBCs since admission. Electrolytes are normal BUN is 51 creatinine 2.10 WBC count is 6.9. Chest x-ray continues to show bilateral pleural effusions, right midlung and right lower lobe opacity, patient had recent pneumonia secondary to Covid 19 pneumonitis. Reevaluated today on 03/17/20, patient remains in the ICU, continues to have intermittent episodes of maroon colored stools. Hemoglobin however is holding, it is 8.3 today, and it was 8.0 yesterday. Patient received a total of 3 units of packed RBCs since admission. EGD was not performed yesterday, no note from gastroenterology today whether patient is going to have EGD or colonoscopy or both. According to the note from yesterday, decision on endoscopic evaluation will be decided upon pending clinical course. In the meantime I will plan to transfer the patient out of the ICU to a regular medical floor, and continue same treatment plan. Reevaluated today on 03/18/20, patient remains in the ICU, he is presently an overflow. Doing fairly well, had one maroon stool last night, and he received a total of 3 units of packed RBCs since admission. Patient is feeling better, breathing a lot easier, however he remains on 5 L nasal cannula without O2 saturation of 98%, chest x-ray showed bilateral pleural effusions, ultrasound of the chest showed a good sized right-sided pleural effusion, large enough to be tapped and drained. Considering the patient remains on relatively high FiO2, I would proceed with thoracentesis today on this patient. In the meantime we'll continue present supportive care measures. Chest x-ray ultrasound and labs were all reviewed. No plans by gastroenterology to perform endoscopic evaluation at this point. On 03/19/2020 patient is seen in follow-up in the intensive care unit, he is mendoza iting a bed on selective care, he has been an overflow status for last 2 days. Vital signs are stable, no worsening dyspnea. He remains on 6 L of oxygen with a pulse ox of 95-96%, hemodynamically stable, his been afebrile, his respirations are nonlabored, breathing is comfortable. His hemoglobin is 9.3, and he received a total of 3 units of blood during this admission. His Eliquis remains on hold, GI service is following, and apparently patient refused to have any endoscopic intervention at this time. In the meantime patient continues to have some intermittent dark colored stools and had one early this morning, no abdominal pain, no nausea or vomiting. No tachycardia. Patient has been started on TPN infusion for nutrition. He is tolerating clear liquid diet. Yesterday patient underwent right-sided thoracentesis with removal of 1 L of light jimmie-colored fluid. Pleural fluid analysis shows transudate based on the LDH and protein content. Cultures are pending so far. She remains on IV Lasix of 40 mg every 12 hours and he is in -2000 and fluid balance over the last 24 hours. Yesterday chest x-ray following his right-sided thoracentesis showed improvement in aeration of the right lower lobe, no new chest x-ray today. Clinically patient is doing well, he's been up in the chair, tolerates activity well, he is generally weak. He remains on empiric antibiotics in the form of Zosyn. The patient is seen today 03/20/2020 in follow-up on the selective care unit. He is currently sitting up in bed. Awake and alert in no acute distress. He is having ongoing issues with shortness of breath and dyspnea on exertion. He is maintaining good O2 saturations in the mid 90s on a Ventimask. He. Hemodynamically stable. Today's chest x-ray shows similar findings compared to previous. There is perihilar and bibasilar increase attenuation. Correlate for congestive heart failure versus pneumonia with associated effusions. White count 8.0. Hemoglobin 9.3. Sodium 135. Potassium 3.9. Creatinine 2.08. He remains on Lasix 40 mg IV every 12 hours. Bronchodilators. Antibiotics in the form of Zosyn. Pleural fluid analysis was transudative in nature with a LDH of 82 and a total protein of 1.6. The patient is seen today 03/21/2020 in follow-up on the selective care unit. He is currently resting in bed. Awake and alert in no acute distress. He is maintaining O2 saturations up to 100% on 4 L/m per nasal cannula. He is afebrile. Hemodynamically stable. Thoracic fluid cultures reveal no growth. Blood cultures no growth. White count 8.0. Hemoglobin 8.7. Sodium 136. Potassium 3.6. Creatinine 2.22. Glucose 172. Remains on Lasix 40 mg IV every 12 hours. Continued on antibiotics in the form of Zosyn. The patient is seen today 03/22/2020 in follow-up on the selective care unit. He remains awake and alert in no acute distress. Resting comfortably in bed. Sitting up having lunch. Still maintaining good O2 saturations in the high 90s on 8 L high flow nasal cannula. He is afebrile. Thoracentesis fluid cultures are negative. White count 7.5. Hemoglobin 8.4. Sodium 135. Potassium 4.1. Creatinine 2.17. Chest x-ray continues to show evidence of congestive heart failure with bilateral effusions. He remains on diuretics in the form of Lasix 40 mg IV every 12 hours. Continued on Zosyn. The patient is seen today 03/23/2020 in follow-up on the selective care unit. He remains awake and alert in no acute distress. Maintaining O2 saturations in the mid 90s on 6 L high flow nasal cannula. He is afebrile. Hemodynamically stable. thoracic fluid revealed no growth. It was transudate in nature. he remains on Lasix 40 mg IV every 12 hours. He is still on PPN. But tolerating small amounts of food as well. sodium 135. Potassium 3.9. Creatinine 2.58. Objective - Vital Signs Vital signs: Vital Signs Temp 97.7 F 03/23/20 08:00 Pulse 90 03/23/20 08:00 Resp 20 03/23/20 08:00 BP 110/75 03/23/20 08:00 Pulse Ox 97 03/23/20 08:00 Intake & Output 03/22/20 03/23/20 03/23/20 18:59 06:59 18:59 Intake Total 940 100 Output Total 2550 550 Balance -1610 -450 Weight 79.5 kg Intake: Oral 940 100 Output: Urine 2550 550 Other: Voiding Method Indwelling Catheter Indwelling Catheter # Bowel Movements 1 - Exam GENERAL EXAM: Alert, very pleasant, 74-year-old male patient, currently on 6 L nasal cannula pulse ox of 97% comfortable in no apparent distress. HEAD: Normocephalic/atraumatic. EYES: Normal reaction of pupils, equal size. Conjunctiva pink, sclera white. NOSE: Clear with pink turbinates. THROAT: No erythema or exudates. NECK: No masses, no JVD, no thyroid enlargement, no adenopathy. CHEST: No chest wall deformity. Symmetrical expansion. LUNGS: Equal air entry with crackles in the bilateral posterior bases, diminished CVS: Regular rate and rhythm, normal S1 and S2, no gallops, no murmurs, no rubs ABDOMEN: Soft, nontender. No hepatosplenomegaly, normal bowel sounds, no guarding or rigidity. EXTREMITIES: No clubbing, no edema, no cyanosis, 2+ pulses and upper and lower extremities. MUSCULOSKELETAL: Muscle strength and tone normal. SPINE: No scoliosis or deformity SKIN: No rashes CENTRAL NERVOUS SYSTEM: No focal deficits, tone is normal in all 4 extremities. PSYCHIATRIC: Alert and oriented -3. Appropriate affect. Intact judgment and insight. - Labs CBC & Chem 7: 03/22/20 05:52 03/23/20 06:21 Labs: Abnormal Lab Results - Last 24 Hours (Table) 03/22/20 03/22/20 03/22/20 Range/Units 12:00 17:09 20:14 Sodium (137-145) mmol/L Chloride (98-107) mmol/L BUN (9-20) mg/dL Creatinine (0.66-1.25) mg/dL Glucose (74-99) mg/dL POC Glucose (mg/dL) 193 H 145 H 206 H (75-99) mg/dL Calcium (8.4-10.2) mg/dL Total Protein (6.3-8.2) g/dL Albumin (3.5-5.0) g/dL 03/23/20 03/23/20 Range/Units 06:14 06:21 Sodium 135 L (137-145) mmol/L Chloride 97 L (98-107) mmol/L BUN 45 H (9-20) mg/dL Creatinine 2.58 H (0.66-1.25) mg/dL Glucose 170 H (74-99) mg/dL POC Glucose (mg/dL) 223 H (75-99) mg/dL Calcium 8.0 L (8.4-10.2) mg/dL Total Protein 5.1 L (6.3-8.2) g/dL Albumin 2.5 L (3.5-5.0) g/dL Microbiology - Last 24 Hours (Table) 03/18/20 13:20 Gram Stain - Final Thoracic Fluid Body Fluid Culture - Final Assessment and Plan Assessment: #1. Acute GI bleed, likely related to lower GI tract source, most likely secondary to diverticular disease worsened by anticoagulation in the form of Eliquis #2. Acute GI blood loss anemia, patient required transfusion with 3 units of packed red blood cells #3. Recent history of COVID 19 infection #4. Severe pulmonary hypertension #5. Acute on chronic hypoxic respiratory failure related to COPD, chronic diastolic congestive heart failure and COVID 19 pneumonitis #6. Bilateral pleural effusions, status post right-sided thoracentesis on 03/18/2020 with removal of 1 L of light colored jimmie fluid, based on the protein and LDH level the fluid is transudative, related to acute exacerbation of CHF #7. Chronic atrial fibrillation was on Eliquis which is on hold right now related to acute GI bleeding #8. Acute on chronic failure #9. History of dementia #10. Type 2 diabetes mellitus #11. Benign essential hypertension #12. Dyslipidemia #13. Severe COPD, oxygen dependent, quit smoking 3 years ago #14. Chronic medical debility and deconditioning related to recent history of multiple hospitalizations, multiple comorbidities Plan: The patient was seen and evaluated by Dr. Gonzales Continue current treatment plan Titrate down the FiO2 as tolerated Overall prognosis remains guarded He has been slow to progress DO NOT RESUSCITATE/DO NOT INTUBATE CODE STATUS We will continue to follow and make further recommendations based on his clinical status I, the cosigning physician, performed a history & physical examination of the patient. Lungs sounds with crackles in the bilateral posterior bases, diminished. Maintaining good O2 saturations in the 90s on 6 L/m per nasal cannula. I discussed the assessment and plan of care with my nurse practitioner, Eveline Munguia. I attest to the above note as dictated by her.
[2020-03-23 11:32] LABS: Glucose,Whole Blood 187 mg/dL (75-99)
[2020-03-23] MEDS: LIDOCAINE 5% PATCH TOPICAL SCH (11:34)
[2020-03-23] MEDS: FAT EMULSION 20% 250 ML IV SCH (11:45)
--- NOTE | 2020-03-23 13:36 | P.NPCON ---
History of Present Illness - Reason for Consult acute renal failure, chronic renal failure - History of Present Illness Reason for consultation: Acute kidney injury on chronic kidney disease History of present illness: Patient is a 74-year-old male seen in renal consultation for acute kidney injury on chronic kidney disease. Patient presented to the hospital on March 15 from an extended care facility due to GI bleed. He was having bloody bowel movements for about 1-2 days prior to admission. Patient's hemoglobin was 5.3 on admission and he was given blood transfusions. According to the nurse he had another bloody bowel movement this morning. Hemoglobin this morning was 8.4. He was noted to have pleural effusions and underwent right-sided thoracentesis on March 18 with 1 L drained. He's currently sitting up in a chair trying to have lunch. He is nonoliguric. He is maintained on IV Lasix 40 mg twice daily. He has significant edema in his lower extremities. Patient's echocardiogram from November 2019 revealed ejection fraction of 50-55% with moderate mitral regurgitation, severe tricuspid regurgitation and severe pulmonary hypertension. Renal ultrasound from last month revealed small right-sided kidney without any evidence of hydronephrosis. Blood pressure is stable. No vomiting or diarrhea. He has a Orellana catheter. Patient has chronic kidney disease stage IIIB/4 with baseline creatinine near 2. Creatinine today is up to 2.58. Vital signs are stable. General: The patient appeared well nourished and normally developed. HEENT: Head exam is unremarkable. Neck is without jugular venous distension. LUNGS: Breath sounds decreased. HEART: Rate and Rhythm are regular. ABDOMEN: Abdominal exam reveals normal bowel sounds. Non-tender and non- distended. EXTREMITITES: 2+ shorty. Past Medical History Past Medical History: Heart Failure, COPD, Diabetes Mellitus, Hyperlipidemia, Hypertension Additional Past Medical History / Comment(s): enlarged prostate. History of Any Multi-Drug Resistant Organisms: None Reported Past Surgical History: Back Surgery Additional Past Surgical History / Comment(s): left first and second finger amputation. Past Anesthesia/Blood Transfusion Reactions: No Reported Reaction Past Psychological History: Anxiety Smoking Status: Former smoker Past Alcohol Use History: None Reported Past Drug Use History: None Reported - Past Family History Brother(s) Family Medical History: Cancer Mother Family Medical History: Diabetes Mellitus, Renal Disease Medications and Allergies Home Medications Medication Instructions Recorded Confirmed Type Tamsulosin [Flomax] 0.8 mg PO DAILY@0904/27/03/15/20 History Linagliptin [Tradjenta] 5 mg PO DAILY@89912/24/19 03/15/20 History buPROPion XL [Wellbutrin XL] 150 mg PO DAILY@0912/24/19 03/15/20 History hydrALAZINE HCL [Apresoline] 25 mg PO TID@0600,1400,209912/24/19 03/15/20 History Acetaminophen Tab [Tylenol] 650 mg PO Q4H PRN 02/23/20 03/15/20 History Aspirin 81 mg PO DAILY@89902/23/20 03/15/20 History Atorvastatin [Lipitor] 20 mg PO HS@209902/23/20 03/15/20 History Calcium Carbonate [Tums] 1,000 mg PO Q6H PRN 02/23/20 03/15/20 History Escitalopram [Lexapro] 10 mg PO DAILY@89902/23/20 03/15/20 History Isosorbide Mononitrate ER [Imdur] 30 mg PO DAILY@89902/23/20 03/15/20 History Metoprolol Tartrate [Lopressor] 50 mg PO BID@0900,209902/23/20 03/15/20 History Omeprazole 20 mg PO DAILY@59902/23/20 03/15/20 History Umeclidinium [place] [employer] [Incruse 1 puff INHALATION RT-DAILY@89902/23/20 03/15/20 History Ellipta] Albuterol Inhaler [Ventolin Hfa 2 puff INHALATION RT-QID PRN puff 03/09/20 03/15/20 Rx Inhaler] HYDROcodone/APAP 5-325MG [[place] 1 tab PO Q4HR PRN #42 tab 03/09/20 03/15/20 Rx 5-325] ALPRAZolam [Xanax] 0.25 mg PO BID@0800,1700 03/15/20 03/15/20 History ALPRAZolam [Xanax] 0.25 mg PO DAILY PRN 03/15/20 03/15/20 History Benzocaine/Menthol Lozeng [Cepacol 1 lozenge MUCOUS MEM Q4HR PRN 03/15/20 03/15/20 History lozenge] Collagenase [Santyl] 1 applic TOPICAL DAILY 03/15/20 03/15/20 History Furosemide [Lasix] 40 mg PO DAILY@0900 03/15/20 03/15/20 History HYDROcodone/APAP 5-325MG [[place] 2 tab PO Q4HR PRN 03/15/20 03/15/20 History 5-325] Insulin Glargine,Hum.rec.anlog 10 unit SQ HS@2100 03/15/20 03/15/20 History [Basaglar Kwikpen U-100] Lidocaine 5% Patch [Lidoderm] 1 patch TOPICAL DAILY@0903/15/20 03/15/20 History Magnesium Oxide 400 mg PO DAILY@0900 03/15/20 03/15/20 History Potassium Chloride ER [K-Dur 10] 10 meq PO DAILY@0900 03/15/20 03/15/20 History Sennosides [Senokot] 8.6 mg PO DAILY PRN 03/15/20 03/15/20 History Visine Tears Solution 0.2-02-1% 1 drop BOTH EYES DAILY PRN 03/15/20 03/15/20 History Allergies Allergy/AdvReac Type Severity Reaction Status Date / Time iodine Allergy Rash/Hives Verified 03/15/20 08:20 morphine AdvReac Hallucinati Verified 03/15/20 08:20 ons Physical Exam Vitals: Vital Signs Temp Pulse Pulse Pulse Pulse Resp BP 03/23/20 12:00 98 F 80 20 142/75 03/23/20 11:21 76 03/23/20 11:09 80 03/23/20 08:00 97.7 F 90 20 110/75 03/23/20 07:29 80 03/23/20 07:18 84 03/23/20 04:00 97.8 F 80 21 148/85 03/23/20 00:00 98.0 F 88 20 110/65 03/22/20 21:22 84 03/22/20 21:03 79 03/22/20 20:00 97.9 F 87 20 123/74 03/22/20 16:23 78 03/22/20 16:12 75 03/22/20 16:00 97.1 F L 78 70 76 18 130/67 Pulse Ox 03/23/20 12:00 98 03/23/20 11:21 03/23/20 11:09 03/23/20 08:00 97 03/23/20 07:29 03/23/20 07:18 03/23/20 04:00 97 03/23/20 00:00 99 03/22/20 21:22 03/22/20 21:03 03/22/20 20:00 99 03/22/20 16:23 03/22/20 16:12 03/22/20 16:00 96 Intake and Output 03/22/20 03/23/20 03/23/20 22:59 06:59 14:59 Intake Total 100 125 Output Total 1050 550 Balance -950 -550 125 Intake: Oral 100 125 Output: Urine 1050 550 Other: Voiding Method Indwelling Catheter Indwelling Catheter Indwelling Catheter # Bowel Movements 1 Weight 79.5 kg Results - Lab Results Most recent lab results Calcium 8.0 mg/dL (8.4-10.2) L 03/23/20 06:21 Phosphorus 3.2 mg/dL (2.5-4.5) 03/23/20 06:21 Magnesium 2.1 mg/dL (1.6-2.3) 03/23/20 06:21 03/22/20 05:52 03/23/20 06:21 Assessment and Plan Plan: Assessment: 1. Acute kidney injury mostly prerenal secondary to cardiorenal syndrome. Creatinine 2.5 today. Renal ultrasound from January 2020 revealed small right kidney but no evidence of hydronephrosis. UA from last month was completely benign. 2. Chronic kidney disease stage IIIB/4 secondary to nephrosclerosis with baseline creatinine near 2. 3. Volume overload. 4. Right-sided pleural effusion status post thoracentesis with 1 L drained on March 18. 5. Acute on chronic diastolic CHF with moderate mitral regurgitation, severe tricuspid regurgitation. 6. Severe pulmonary hypertension. 7. GI bleed status post 3 units of blood transfusion. Anticoagulation held. Patient has been refusing endoscopy. Plan: Discontinue IV Lasix. Start Lasix drip at 10 mL an hour. Reduce the rate of PPN. 25 g IV albumin 2 doses today. Continue to monitor renal function and urine output. Repeat electrolytes in the morning. Thank you for the consultation. I will continue to follow the patient with you during his hospital stay.
--- NOTE | 2020-03-23 14:42 | P.PN ---
Subjective Progress Note Date: 03/23/20 Hospital course:74-year-old male resident currently at [facility] subacute rehab ,known to the practice with history of severe pulmonary hypertension, hypertension hyperlipidemia diabetes mellitus type 2 former smoker anxiety COPD stage III chronic renal insufficiency, recent pneumonia, early dementia (Montral cognitive scoring at [facility] 11 out of 30), recent right hip in situ screw fixation for nondisplaced right transcervical femoral neck fracture- on eliquis, transferred to the ER with complaints of rectal bleeding, maroon with blood clots. Hemoglobin yesterday reported from the ER at 6.8, on arrival 5.3, hypoxic, requiring a nonrebreather. Denies abdominal pain, complains of right hip and rib pain. No hemoptysis, no hematochezia. In the ER patient received K Centra two units of packed RBCs, with Eliquis placed on hold. Chest x-ray reporting increased infiltrate on the right lung worsening from prior x- ray. Zosyn, Levaquin initiated for potential H Pneumonia. INR 1.2, BUN 48, creatinine 2.18. CO2 32. Troponin 0.032. Denies chest pain, palpitations , ox ygen has been weaned down to 4 L nasal cannula .Poor historian. GI and pulmonary/security alarm installer consulted. 03/16/20 rectal bleeding decreasing, staff reports maroon stools times one with few clots today. Hemoglobin 6.8, received 1 unit of packed RBC. Evaluated by GI with no EGD recommended at this time. Creatinine trending down to 2.1. Continues on empiric antibiotics of Zosyn and Levaquin. Repeat coronavirus reporting negative. Chest x-ray reporting persistent cardiomegaly, central vascular congestion with bilateral pleural effusions; small to moderate right pleural effusion with right mid to lower lung acute infiltrate/atelectasis, more prominent compared to yesterday. Maintaining O2 sats in the high 90s to 100% on 4 L nasal cannula. Denies chest pain, palpitations or shortness of breath. 03/17/2020 Continues to have rectal bleeding, maroon bowel movements 2 reported, current hemoglobin, increased to 8.3. Denies abdominal pain or cramping. Tolerating clear liquid diet with no nausea or vomiting.chest x- rayreporting worsening fluid overload with moderate layering right pleural effusion, Lasix increased. Maintaining O2 sats in the 90s on 5 L nasal cannula.creatinine stable at 2.09.denies chest pain, palpitations. 03/18/2020 continues to have maroon stools this morning 2. Hemoglobin 8.5. Maintaining O2 sats in the 90s on 5 L nasal cannula. Chest x-ray reporting scattered patchy airspace, interstitial infiltrates bilaterally right greater than left with improved aeration left lower lobe, persistent moderate right- sided pleural effusion. Chest ultrasound reported bilateral sites marked for possible thoracentesis, right pleural effusion pocket 10.5 cm left pleural effusion pocket 6.6 cm. Right thoracentesis pending. 03/19/2020 bowel movements no longer reported as maroon, reported as dark colored. Bowel movements X 2 this am. Denies abdominal pain. GI had discussed endoscopy, patient unsure if he wishes to proceed. Maintained on clear liquids X 4 days, with poor diet [id number]%. Hypoglycemic. Hemoglobin 9.3, creatinine 2.07. Right thoracentesis completed yesterday with 1 L removed, continuing to monitor left pleural effusion. 03/23/2020 maintained on Zosyn, afebrile. Thoracentesis/pleural fluid cultures reported negative.Diuresing well on Lasix IV push with 24-hour I&O reflecting a negative fluid balance but continues to have significant lower extremity edema. Creatinine worsening up to 2.58. Staff reports one maroon stool this morning, hemoglobin pending. Albumin 2.5. Maintaining O2 sats in the 90s on 6 L nasal cannula. Nephrology consulted. Objective - Vital Signs Vital signs: Vital Signs Temp 98 F 03/23/20 12:00 Pulse 80 03/23/20 12:00 Resp 20 03/23/20 12:00 BP 142/75 03/23/20 12:00 Pulse Ox 98 03/23/20 12:00 Intake & Output 03/22/20 03/23/20 03/23/20 18:59 06:59 18:59 Intake Total 940 100 125 Output Total 2550 550 Balance -1610 -450 125 Weight 79.5 kg Intake: Oral 940 100 125 Output: Urine 2550 550 Other: Voiding Method Indwelling Catheter Indwelling Catheter Indwelling Catheter # Bowel Movements 1 - Exam General: Sitting up in chair, no acute distress,alert and oriented 3 HEENT: [PERRL. EOMI. No pharyngeal erythema or exudate. Oral mucosa moist. Neck: [No adenopathy. No JVD Cardiac: [Heart regular in rate and rhythm. No S3. No S4. No clicks, rubs. No murmur. Lungs: Bilateral bases diminished. Abdomen: [Soft, nontender,No mass. No organomegaly. no guarding, Positive Bowel sounds present. Extremities: Right hip tender, sensation grossly intact, 2+ bilateral lower extremity edema, no clubbing, no cyanosis, positive pulses Skin: left hand with first and second digit missing .No rash.] Neurologic: [No lateralizing deficits. CN II - XII grossly intact.] Microbiology 03/18/20 13:20 Thoracic Fluid Gram Stain - Final 03/18/20 13:20 Thoracic Fluid Body Fluid Culture - Final 03/15/20 06:35 Blood Blood Culture - Final No Growth after 144 hours 03/18/20 13:20 Thoracentesis Fluid Acid Fast Bacilli Smear - Final 03/18/20 13:20 Thoracentesis Fluid Acid Fast Bacilli Culture - Preliminary 03/18/20 13:20 Thoracentesis Fluid Fungal Culture - Preliminary - Labs CBC & Chem 7: 03/22/20 05:52 03/23/20 06:21 Labs: Abnormal Lab Results - Last 24 Hours (Table) 03/22/20 03/22/20 03/23/20 Range/Units 17:09 20:14 06:14 Sodium (137-145) mmol/L Chloride (98-107) mmol/L BUN (9-20) mg/dL Creatinine (0.66-1.25) mg/dL Glucose (74-99) mg/dL POC Glucose (mg/dL) 145 H 206 H 223 H (75-99) mg/dL Calcium (8.4-10.2) mg/dL Total Protein (6.3-8.2) g/dL Albumin (3.5-5.0) g/dL 03/23/20 03/23/20 Range/Units 06:21 11:30 Sodium 135 L (137-145) mmol/L Chloride 97 L (98-107) mmol/L BUN 45 H (9-20) mg/dL Creatinine 2.58 H (0.66-1.25) mg/dL Glucose 170 H (74-99) mg/dL POC Glucose (mg/dL) 187 H (75-99) mg/dL Calcium 8.0 L (8.4-10.2) mg/dL Total Protein 5.1 L (6.3-8.2) g/dL Albumin 2.5 L (3.5-5.0) g/dL Assessment and Plan Assessment: -Acute GI bleed, in a patient on Eliquis. Anticoagulation Currently on hold, continues to decline endoscopy -Acute severe blood loss anemia secondary to the above, status post transfusion of 3 units of packed RBCs -Volume overload -Acute on chronic hypoxic respiratory failure secondary to the above; wears 2 L at home -Recent right in situ screw fixation for nondisplaced right transcervical femoral neck fracture, status post fall -Chronic CHF, diastolic dysfunction, EF 50-55% -Severe pulmonary hypertension -Recent Covid 19 pneumonia, repeat coronavirus testing reported negative -Bilateral pleural effusion, status post right thoracentesis, cytology negative. -Acute on chronic renal failure, prerenal, secondary to cardiorenal syndrome -Diabetes mellitus, uncontrolled, hypoglycemic secondary to poor oral intake -Hypertension -Chronic atrial fibrillation -Dementia,Cognitive impairment, recent ventral cognitive assessment at [facility] reported 11 out of 30 - prior nicotine dependence -Dyslipidemia -Medical debility -No Code, No CPR, No Intubation -Moderate protein malnutrition, PPN initiated -Hypokalemic Plan: Continue on current medication regime ,monitoring and symptomatic treatment. Nephrology recommendations noted and appreciated; Lasix drip initiated, albumin. Ruchi remains on hold currently on Lovenox. Maintain PPI. CBC ordered, pending RSOEMARIE hose ordered. Wean off PPN if diet intake improved. Dietitian to reevaluate. Close monitoring of renal function, electrolytes with repeat labs ordered for a.m. The impression and plan of care has been dictated as directed. : I performed a history and examination of this patient, discussed the same with the dictator. I agree with the dictator's note ,documented as a scribe. Any additional findings or plans will be noted.
[2020-03-23] MEDS: ALBUMIN HUMAN 25% 50 ML in EMPTY BAG 1 BAG IVPB SCH ×2 (15:12→16:04)
--- NOTE | 2020-03-23 15:29 | PN ---
PROGRESS NOTE DATE OF DICTATION: 03/23/2020 This patient is a 74-year-old white male admitted to the hospital with acute GI bleed; Eliquis on hold. Bleeding has subsided. He received 3 units of blood transfusion so far. For the last 3 days he had no further episodes of bleeding. He continues to have some shortness of breath but overall feeling better. PHYSICAL EXAMINATION: Appears comfortable. No apparent distress. VITAL SIGNS: Blood pressure 110/75, pulse rate 90, temperature 97.7, and respiratory rate 20 per minute. HEENT examination unremarkable. Conjunctivae pink. Sclerae anicteric. Oral cavity no lesions. NECK: No JVD or lymph node enlargement. CHEST: Decreased breath sounds bilaterally. Some wheezing noted. EXTREMITIES: No pedal edema. NEUROLOGIC: He is alert and oriented x3. No focal deficits. LABS: Hemoglobin 8.4. Basic metabolic panel normal. BUN 45, creatinine 2.58. IMPRESSION: 1. Acute gastrointestinal bleed, possibly diverticular in etiology. Bleeding subsided after Eliquis being on hold for the last 6 days. Received 3 units of PRBC transfusion so far. Hemoglobin stable at 8.6 g/dL. No further bleeding noted. 2. Shortness of breath; exacerbation of chronic obstructive pulmonary disease/congestive heart failure. Dr. Ramos is following the patient closely. 3. Atrial fibrillation, on Eliquis, currently on hold. 4. Chronic kidney disease. RECOMMENDATIONS: 1. Monitor CBC on a daily basis. 2. Advance diet as tolerated. 3. No plans on any endoscopic intervention, as the patient does not want to have any of this done during this hospitalization. Will follow with you closely. Thank you for this consultation. MMODL / IJN: [id number] /
[2020-03-23 15:50] LABS: Anisocytosis Slight; Basophils % (A) 0 %; Eosinophils # (A) 0.2 k/uL (0-0.7); Eosinophils % (A) 2 %; HCT 28.9 % (39.0-53.0); HGB 8.6 gm/dL (13.0-17.5); Hypochromasia Marked; Lymphocytes # (A) 0.6 k/uL (1.0-4.8); Lymphocytes % (A) 7 %; MCH 28.1 pg (25.0-35.0); MCHC 29.8 g/dL (31.0-37.0); MCV 94.3 fL (80.0-100.0); Macrocytosis Slight; Mean Platelet Volume 10.4; Monocytes # (A) 0.5 k/uL (0-1.0); Monocytes % (A) 6 %; Neutrophils % (A) 83 %; Platelet Count 161 k/uL (150-450); Poikilocytosis Slight; RBC 3.06 m/uL (4.30-5.90); RDW 18.7 % (11.5-15.5); WBC 8.4 k/uL (3.8-10.6)
[2020-03-23] MEDS: FUROSEMIDE 100 MG in SODIUM CHLORIDE 0.9% 90 ML IV SCH ×2 (16:20→23:17)
[2020-03-23 16:30] LABS: Glucose,Whole Blood 114 mg/dL (75-99)
[2020-03-23 19:34] LABS: Anisocytosis Slight; HCT 28.6 % (39.0-53.0); HGB 8.4 gm/dL (13.0-17.5); Hypochromasia Marked; MCH 27.2 pg (25.0-35.0); MCHC 29.5 g/dL (31.0-37.0); MCV 92.2 fL (80.0-100.0); Mean Platelet Volume 9.4; Platelet Count 158 k/uL (150-450); Poikilocytosis Slight; RDW 19.3 % (11.5-15.5); WBC 10.2 k/uL (3.8-10.6)
[2020-03-23 20:51] LABS: Glucose,Whole Blood 169 mg/dL (75-99)
[2020-03-23] MEDS: ATORVASTATIN 20 MG TAB PO SCH (22:29)
[2020-03-24] MEDS: MENTHOL (NICE) LOZENGE MUCOUS MEM PRN (01:27)
[2020-03-24] MEDS: ALPRAZolam 0.25 MG TAB PO PRN (04:08)
[2020-03-24 05:48] LABS: Glucose,Whole Blood 144 mg/dL (75-99)
[2020-03-24] MEDS: INSULIN ASPART (NovoLOG) 100 UNIT/ML VIAL SQ SCH ×4 (06:26→21:03)
[2020-03-24] MEDS: hydrALAZINE HCL 25 MG TAB PO SCH ×3 (06:26→21:03)
[2020-03-24] MEDS: HYDROcodone/APAP 5-325MG 1 EACH TAB PO PRN ×2 (06:27→21:01)
[2020-03-24] MEDS: ALBUTEROL NEBULIZED 2.5 MG/3 ML INHALATION PRN ×3 (07:00→21:35)
[2020-03-24 08:03] LABS: Albumin 2.8 g/dL (3.5-5.0); Calcium 8.3 mg/dL (8.4-10.2); Magnesium 2.1 mg/dL (1.6-2.3); Phosphorus 3.4 mg/dL (2.5-4.5); Potassium 3.7 mmol/L (3.5-5.1); Total Bilirubin 0.4 mg/dL (0.2-1.3); Total Protein 5.4 g/dL (6.3-8.2)
[2020-03-24 09:26] VITALS: BMI 31.4
[2020-03-24] MEDS: ISOSORBIDE MONONITRATE ER 30 MG TAB.ER.24H PO SCH (09:37)
[2020-03-24] MEDS: LINAGLIPTIN 5 MG TABLET PO SCH (09:37)
[2020-03-24] MEDS: buPROPion XL 150 MG TAB.ER.24H PO SCH (09:37)
[2020-03-24] MEDS: METOPROLOL TARTRATE 50 MG TAB PO SCH ×2 (09:37→21:03)
[2020-03-24] MEDS: PANTOPRAZOLE 40 MG/10 ML VIAL IVP SCH ×2 (09:37→21:03)
[2020-03-24] MEDS: MAGNESIUM OXIDE 400 MG TAB PO SCH (09:37)
[2020-03-24] MEDS: LIDOCAINE 5% PATCH TOPICAL SCH (09:38)
[2020-03-24] MEDS: FUROSEMIDE 100 MG in SODIUM CHLORIDE 0.9% 90 ML IV SCH ×2 (10:52→16:47)
[2020-03-24 11:14] LABS: Glucose,Whole Blood 198 mg/dL (75-99)
[2020-03-24 11:32] LABS: Anisocytosis Slight; Basophils % (A) 0 %; Eosinophils # (A) 0.1 k/uL (0-0.7); Eosinophils % (A) 1 %; HCT 29.4 % (39.0-53.0); HGB 8.8 gm/dL (13.0-17.5); Hypochromasia Marked; Lymphocytes # (A) 0.7 k/uL (1.0-4.8); Lymphocytes % (A) 8 %; MCH 27.2 pg (25.0-35.0); MCHC 29.9 g/dL (31.0-37.0); MCV 91.1 fL (80.0-100.0); Mean Platelet Volume 10.5; Monocytes # (A) 0.5 k/uL (0-1.0); Monocytes % (A) 6 %; Neutrophils # (A) 6.6 k/uL (1.3-7.7); Neutrophils % (A) 83 %; Platelet Count 175 k/uL (150-450); Poikilocytosis Slight; RBC 3.22 m/uL (4.30-5.90); RDW 19.3 % (11.5-15.5)
[2020-03-24] MEDS: ENOXAPARIN 30 MG/0.3 ML SYRINGE SQ SCH (12:24)
--- NOTE | 2020-03-24 12:49 | P.PN ---
Subjective Patient is seen in follow-up for acute kidney injury on chronic kidney disease. Patient has chronic kidney disease stage IIIB/4 with baseline creatinine near 2. Creatinine 2.68 today. Maintain on Lasix drip at 10 mL an hour. Urine output about 300 mL in the last 4 hours. Oral intake is fair. Still quite edematous. Denies chest pain or shortness of breath. Vital signs are stable. General: The patient appeared well nourished and normally developed. HEENT: Head exam is unremarkable. Neck is without jugular venous distension. LUNGS: Breath sounds decreased. HEART: Rate and Rhythm are regular. First and second heart sounds normal. No mu rmurs, rubs or gallops. ABDOMEN: Soft, nontender. EXTREMITITES: 2+ edema. Objective - Vital Signs Vital signs: Vital Signs Temp 97.8 F 03/24/20 09:40 Pulse 82 03/24/20 11:32 Resp 18 03/24/20 09:40 BP 98/64 03/24/20 09:40 Pulse Ox 98 03/24/20 09:40 Intake & Output 03/23/20 03/24/20 03/24/20 18:59 06:59 18:59 Intake Total 615 609.5 100 Output Total 300 500 Balance 315 109.5 100 Weight 75.5 kg 75.5 kg Intake: IV 400 Piperacillin-Tazobactam 3 400 .375 gm In Sodium Chloride 0.9% 100 ml @ 25 mls/hr IVPB Q8HR JN Rx# :[id number] Intake, IV Titration 69.5 100 Amount Furosemide 100 mg In 69.5 100 Sodium Chloride 0.9% 90 ml @ 10 MG/HR 10 mls/hr IV .Q10H JN Rx#: [id number] Oral 125 540 Lipid 90 Piperacillin-Tazobactam 3 90 .375 gm In Sodium Chloride 0.9% 100 ml @ 25 mls/hr IVPB Q8HR JN Rx# :[id number] Output: Urine 300 500 Other: Voiding Method Indwelling Catheter Indwelling Catheter # Bowel Movements 1 - Labs CBC & Chem 7: 03/24/20 06:51 03/24/20 06:51 Labs: Abnormal Lab Results - Last 24 Hours (Table) 03/23/20 03/23/20 03/23/20 Range/Units 06:21 16:29 18:16 RBC 3.06 L 3.10 L (4.30-5.90) m/uL Hgb 8.6 L 8.4 L (13.0-17.5) gm/dL Hct 28.9 L 28.6 L (39.0-53.0) % MCHC 29.8 L 29.5 L (31.0-37.0) g/dL RDW 18.7 H 19.3 H (11.5-15.5) % Lymphocytes # 0.6 L (1.0-4.8) k/uL Sodium (137-145) mmol/L Chloride (98-107) mmol/L BUN (9-20) mg/dL Creatinine (0.66-1.25) mg/dL Glucose (74-99) mg/dL POC Glucose (mg/dL) 114 H (75-99) mg/dL Calcium (8.4-10.2) mg/dL Total Protein (6.3-8.2) g/dL Albumin (3.5-5.0) g/dL 03/23/20 03/24/20 03/24/20 Range/Units 20:49 05:47 06:51 RBC (4.30-5.90) m/uL Hgb (13.0-17.5) gm/dL Hct (39.0-53.0) % MCHC (31.0-37.0) g/dL RDW (11.5-15.5) % Lymphocytes # (1.0-4.8) k/uL Sodium 136 L (137-145) mmol/L Chloride 96 L (98-107) mmol/L BUN 48 H (9-20) mg/dL Creatinine 2.68 H (0.66-1.25) mg/dL Glucose 124 H (74-99) mg/dL POC Glucose (mg/dL) 169 H 144 H (75-99) mg/dL Calcium 8.3 L (8.4-10.2) mg/dL Total Protein 5.4 L (6.3-8.2) g/dL Albumin 2.8 L (3.5-5.0) g/dL 03/24/20 03/24/20 Range/Units 06:51 11:12 RBC 3.22 L (4.30-5.90) m/uL Hgb 8.8 L (13.0-17.5) gm/dL Hct 29.4 L (39.0-53.0) % MCHC 29.9 L (31.0-37.0) g/dL RDW 19.3 H (11.5-15.5) % Lymphocytes # 0.7 L (1.0-4.8) k/uL Sodium (137-145) mmol/L Chloride (98-107) mmol/L BUN (9-20) mg/dL Creatinine (0.66-1.25) mg/dL Glucose (74-99) mg/dL POC Glucose (mg/dL) 198 H (75-99) mg/dL Calcium (8.4-10.2) mg/dL Total Protein (6.3-8.2) g/dL Albumin (3.5-5.0) g/dL Assessment and Plan Plan: Assessment: 1. Acute kidney injury mostly prerenal secondary to cardiorenal syndrome. Renal function fairly stable. Creatinine 2.68 today. Renal ultrasound from January 2020 revealed small right kidney but no evidence of hydronephrosis. UA from last month was completely benign. 2. Chronic kidney disease stage IIIB/4 secondary to nephrosclerosis with baseline creatinine near 2. 3. Volume overload. 4. Right-sided pleural effusion status post thoracentesis with 1 L drained on March 18. 5. Acute on chronic diastolic CHF with moderate mitral regurgitation, severe tricuspid regurgitation. 6. Severe pulmonary hypertension. 7. GI bleed status post 3 units of blood transfusion. Anticoagulation held. GI following. 8. Anemia of chronic kidney disease. Rule out iron deficiency. Plan: Increase Lasix drip to 15 mL an hour. Add metolazone 5 mg once daily. Status post 25 g IV albumin 2 doses on March 23. Continue to monitor renal function and urine output. Repeat electrolytes in the morning. Check iron studies. Add Aranesp.
[2020-03-24] MEDS ORDERED: DARBEPOETIN ALFA 40 MCG/0.4 ML SYRINGE SQ SCH (13:00)
--- NOTE | 2020-03-24 15:09 | P.PN ---
Subjective Progress Note Date: 03/24/20 Principal diagnosis: Acute GI bleeding, acute exacerbation of CHF This is a 74-year-old white male with history of multiple medical problems, I saw this patient recently for cold 19 pneumonitis. I also saw the patient for right hip fracture requiring surgery and the fracture was secondary to fall. Patient was eventually discharged to [facility] on the abbasi. And he was brought in this morning mostly complaining of bloody stools, blood-tinged sputum, and hematuria. Yesterday his hemoglobin was 6.8, however today his hemoglobin was noted to be as low as 5.3 on admission. Patient was on Eliquis for atrial fibrillation, and upon evaluation in the ER, patient was placed on Kcentra, transfused a total of 2 units of packed RBCs so far, and his Eliquis was placed on hold. The patient is not a great historian, however he denies any chest pain, denies any fever, no chills, he had occasional episodes of blood-tinged sputum, denies any nausea vomiting abdominal pain. 2 units of packed RBCs were given since admission, repeat hemoglobin is pending. Reviewing his last admis adelita, patient was discharged on 03/09, he had the right in situ screw fixation a nondisplaced right femoral neck fracture. His other medical problems included hypoxic respiratory failure secondary to chronic diastolic dysfunction, severe pulmonary hypertension, covid 19 pneumonitis, diabetes, hypertension, chronic hypoxic respiratory failure secondary to COPD, normally he is on option at 2 L. And he is also known to have history of cognitive impairment/dementia. Reevaluated today on 03/16/20, patient remains in the ICU. Patient dropped his hemoglobin down to 6.8 today. Continues to have intermittent episodes of maroon colored stools. Patient is supposed to be receiving 1 unit of packed RBCs today. Remains on IV fluid at KVO, oxygen at 4 L/m and his O2 saturation is 100%. Remains on empiric antibiotics in the form of Zosyn and Levaquin. Patient had a marginal urine output hence I have recommended after he receives the blood transfusion to be given at least 40 mg of Lasix IV push 1. So far the patient has received 3 units of packed RBCs since admission. Electrolytes are normal BUN is 51 creatinine 2.10 WBC count is 6.9. Chest x-ray continues to show bilateral pleural effusions, right midlung and right lower lobe opacity, patient had recent pneumonia secondary to Covid 19 pneumonitis. Reevaluated today on 03/17/20, patient remains in the ICU, continues to have intermittent episodes of maroon colored stools. Hemoglobin however is holding, it is 8.3 today, and it was 8.0 yesterday. Patient received a total of 3 units of packed RBCs since admission. EGD was not performed yesterday, no note from gastroenterology today whether patient is going to have EGD or colonoscopy or both. According to the note from yesterday, decision on endoscopic evaluation will be decided upon pending clinical course. In the meantime I will plan to transfer the patient out of the ICU to a regular medical floor, and continue same treatment plan. Reevaluated today on 03/18/20, patient remains in the ICU, he is presently an overflow. Doing fairly well, had one maroon stool last night, and he received a total of 3 units of packed RBCs since admission. Patient is feeling better, b reathing a lot easier, however he remains on 5 L nasal cannula without O2 saturation of 98%, chest x-ray showed bilateral pleural effusions, ultrasound of the chest showed a good sized right-sided pleural effusion, large enough to be tapped and drained. Considering the patient remains on relatively high FiO2, I would proceed with thoracentesis today on this patient. In the meantime we'll continue present supportive care measures. Chest x-ray ultrasound and labs were all reviewed. No plans by gastroenterology to perform endoscopic evaluation at this point. On 03/19/2020 patient is seen in follow-up in the intensive care unit, he is awaiting a bed on selective care, he has been an overflow status for last 2 days. Vital signs are stable, no worsening dyspnea. He remains on 6 L of oxyge n with a pulse ox of 95-96%, hemodynamically stable, his been afebrile, his respirations are nonlabored, breathing is comfortable. His hemoglobin is 9.3, and he received a total of 3 units of blood during this admission. His Eliquis remains on hold, GI service is following, and apparently patient refused to have any endoscopic intervention at this time. In the meantime patient continues to have some intermittent dark colored stools and had one early this morning, no abdominal pain, no nausea or vomiting. No tachycardia. Patient has been started on TPN infusion for nutrition. He is tolerating clear liquid diet. Yesterday patient underwent right-sided thoracentesis with removal of 1 L of light jimmie-colored fluid. Pleural fluid analysis shows transudate based on the LDH and protein content. Cultures are pending so far. She remains on IV Lasix of 40 mg every 12 hours and he is in -2000 and fluid balance over the last 24 hours. Yesterday chest x-ray following his right-sided thoracentesis showed improvement in aeration of the right lower lobe, no new chest x-ray today. Clinically patient is doing well, he's been up in the chair, tolerates activity well, he is generally weak. He remains on empiric antibiotics in the form of Zosyn. On 03/24/2020 patient seen in follow-up on selective care unit. is awake and alert, in no acute distress, currently on 8 L per high flow nasal cannula his pulse ox is 91%, appears to be in no acute distress at rest, but generally patient is weak, and does have some exertional dyspnea, but overall doing better, breathing easier, his had no fever or chills. his last chest x-ray was done on 03/22/2020 showing increased interstitium, with bilateral pleural effusions. patient is status post right-sided thoracentesis on 03/18/2020 would removal of 1 L of light jimmie-colored pleural fluid which was shown to be transudative in nature based on LDH and protein content. patient is currently on Lasix drip at 15 mg per hour, and metolazone, per nephrology, he is positive for 424 mL fluid balance over the last 24 hours. his labs have been reviewed, slightly worsening renal function, would be on a 48 and creatinine of 2.68. Serum sodium is 136, potassium 3.7, chloride is 96, CO2 is 30, no nausea vomiting or diarrhea. classroom monitor shows sinus rhythm rate of 78 BPM. abdomen is soft, nontender. patient's Eliquis continues to be on hold patient is only getting prophylactic dose of Lovenox at 30 mg daily. Objective - Vital Signs Vital signs: Vital Signs Temp 97.8 F 03/24/20 09:40 Pulse 85 03/24/20 12:20 Resp 8 L 03/24/20 12:25 BP 114/69 03/24/20 12:20 Pulse Ox 91 L 03/24/20 12:25 Intake & Output 03/23/20 03/24/20 03/24/20 18:59 06:59 18:59 Intake Total 615 609.5 122.667 Output Total 300 500 Balance 315 109.5 122.667 Weight 75.5 kg 75.5 kg Intake: IV 400 Piperacillin-Tazobactam 3 400 .375 gm In Sodium Chloride 0.9% 100 ml @ 25 mls/hr IVPB Q8HR [facility] Rx# :[id number] Intake, IV Titration 69.5 122.667 Amount Furosemide 100 mg In 69.5 122.667 Sodium Chloride 0.9% 90 ml @ 10 MG/HR 10 mls/hr IV .Q10H [facility] Rx#: [id number] Oral 125 540 Lipid 90 Piperacillin-Tazobactam 3 90 .375 gm In Sodium Chloride 0.9% 100 ml @ 25 mls/hr IVPB Q8HR [facility] Rx# :[id number] Output: Urine 300 500 Other: Voiding Method Indwelling Catheter Indwelling Catheter Indwelling Catheter # Bowel Movements 1 - Exam GENERAL EXAM: Alert, very pleasant, 74-year-old white male, currently on 8 L of oxygen pulse ox of 91% comfortable in no apparent distress. HEAD: Normocephalic/atraumatic. EYES: Normal reaction of pupils, equal size. Conjunctiva pink, sclera white. NOSE: Clear with pink turbinates. THROAT: No erythema or exudates. NECK: No masses, no JVD, no thyroid enlargement, no adenopathy. CHEST: No chest wall deformity. Symmetrical expansion. LUNGS: Equal air entry with no crackles, wheeze, rhonchi or dullness. CVS: Regular rate and rhythm, normal S1 and S2, no gallops, no murmurs, no rubs ABDOMEN: Soft, nontender. No hepatosplenomegaly, normal bowel sounds, no guarding or rigidity. EXTREMITIES: No clubbing, no edema, no cyanosis, 2+ pulses and upper and lower extremities. MUSCULOSKELETAL: Muscle strength and tone normal. SPINE: No scoliosis or deformity SKIN: No rashes CENTRAL NERVOUS SYSTEM: Alert and oriented -3. No focal deficits, tone is normal in all 4 extremities. PSYCHIATRIC: Alert and oriented -3. Appropriate affect. Intact judgment and insight. - Labs CBC & Chem 7: 03/24/20 06:51 03/24/20 06:51 Labs: Abnormal Lab Results - Last 24 Hours (Table) 03/23/20 03/23/20 03/23/20 Range/Units 06:21 16:29 18:16 RBC 3.06 L 3.10 L (4.30-5.90) m/uL Hgb 8.6 L 8.4 L (13.0-17.5) gm/dL Hct 28.9 L 28.6 L (39.0-53.0) % MCHC 29.8 L 29.5 L (31.0-37.0) g/dL RDW 18.7 H 19.3 H (11.5-15.5) % Lymphocytes # 0.6 L (1.0-4.8) k/uL Sodium (137-145) mmol/L Chloride (98-107) mmol/L BUN (9-20) mg/dL Creatinine (0.66-1.25) mg/dL Glucose (74-99) mg/dL POC Glucose (mg/dL) 114 H (75-99) mg/dL Calcium (8.4-10.2) mg/dL Total Protein (6.3-8.2) g/dL Albumin (3.5-5.0) g/dL 03/23/20 03/24/20 03/24/20 Range/Units 20:49 05:47 06:51 RBC (4.30-5.90) m/uL Hgb (13.0-17.5) gm/dL Hct (39.0-53.0) % MCHC (31.0-37.0) g/dL RDW (11.5-15.5) % Lymphocytes # (1.0-4.8) k/uL Sodium 136 L (137-145) mmol/L Chloride 96 L (98-107) mmol/L BUN 48 H (9-20) mg/dL Creatinine 2.68 H (0.66-1.25) mg/dL Glucose 124 H (74-99) mg/dL POC Glucose (mg/dL) 169 H 144 H (75-99) mg/dL Calcium 8.3 L (8.4-10.2) mg/dL Total Protein 5.4 L (6.3-8.2) g/dL Albumin 2.8 L (3.5-5.0) g/dL 03/24/20 03/24/20 Range/Units 06:51 11:12 RBC 3.22 L (4.30-5.90) m/uL Hgb 8.8 L (13.0-17.5) gm/dL Hct 29.4 L (39.0-53.0) % MCHC 29.9 L (31.0-37.0) g/dL RDW 19.3 H (11.5-15.5) % Lymphocytes # 0.7 L (1.0-4.8) k/uL Sodium (137-145) mmol/L Chloride (98-107) mmol/L BUN (9-20) mg/dL Creatinine (0.66-1.25) mg/dL Glucose (74-99) mg/dL POC Glucose (mg/dL) 198 H (75-99) mg/dL Calcium (8.4-10.2) mg/dL Total Protein (6.3-8.2) g/dL Albumin (3.5-5.0) g/dL Assessment and Plan Plan: Assessment: #1. Acute GI bleed, likely related to lower GI tract source, most likely secondary to diverticular disease worsened by anticoagulation in the form of Eliquis, patient has declined endoscopic studies #2. Acute GI blood loss anemia, patient required transfusion with 3 units of packed red blood cells #3. Recent history of COVID 19 infection #4. Severe pulmonary hypertension #5. Chronic hypoxic rest or a failure related to COPD, chronic diastolic con gestive heart failure and COVID 19 pneumonitis #6. Bilateral pleural effusions, status post right-sided thoracentesis on 03/18/2020 with removal of 1 L of light colored jimmie fluid, based on the pro tein and LDH level the fluid is transudative, related to acute exacerbation of CHF #7. Chronic atrial fibrillation was on Eliquis which is on hold right now related to acute GI bleeding #8. Acute on chronic failure #9. History of dementia #10. Type 2 diabetes mellitus #11. Benign essential hypertension #12. Dyslipidemia #13. Severe COPD, oxygen dependent, quit smoking 3 years ago #14. Chronic medical debility and deconditioning related to recent history of multiple hospitalizations, multiple comorbidities Plan: Continue current medical treatment, continue holding Eliquis, no recurrence of bleeding, hemodynamically stable, remains on Lasix infusion, we'll obtain follow-up chest x-ray tomorrow. Continue monitoring daily electrolytes and renal profile, overall prognosis is extremely guarded in view of multiple morbid conditions and multiple medical problems. CODE STATUS is DO NOT RESUSCITATE. We'll continue with supportive medical treatment I performed a history & physical examination of the patient and discussed their management with my nurse practitioner, Valorie Gilbert. I reviewed the nurse practitioner's note and agree with the documented findings and plan of care. Lung sounds are positive for diminished breath sounds. The findings and the impression was discussed with the patient. I attest to the documentation by the nurse practitioner. Time with Patient: Less than 30
--- NOTE | 2020-03-24 15:30 | P.PN ---
Subjective Progress Note Date: 03/24/20 Hospital course:74-year-old male resident currently at [facility] subacute rehab ,known to the practice with history of severe pulmonary hypertension, hypertension hyperlipidemia diabetes mellitus type 2 former smoker anxiety COPD stage III chronic renal insufficiency, recent pneumonia, early dementia (Montral cognitive scoring at [facility] 11 out of 30), recent right hip in situ screw fixation for nondisplaced right transcervical femoral neck fracture- on eliquis, transferred to the ER with complaints of rectal bleeding, maroon with blood clots. Hemoglobin yesterday reported from the ER at 6.8, on arrival 5.3, hypoxic, requiring a nonrebreather. Denies abdominal pain, complains of right hip and rib pain. No hemoptysis, no hematochezia. In the ER patient received K Centra two units of packed RBCs, with Eliquis placed on hold. Chest x-ray reporting increased infiltrate on the right lung worsening from prior x- ray. Zosyn, Levaquin initiated for potential H Pneumonia. INR 1.2, BUN 48, creatinine 2.18. CO2 32. Troponin 0.032. Denies chest pain, palpitations , ox ygen has been weaned down to 4 L nasal cannula .Poor historian. GI and pulmonary/bar assistant consulted. 03/16/20 rectal bleeding decreasing, staff reports maroon stools times one with few clots today. Hemoglobin 6.8, received 1 unit of packed RBC. Evaluated by GI with no EGD recommended at this time. Creatinine trending down to 2.1. Continues on empiric antibiotics of Zosyn and Levaquin. Repeat coronavirus reporting negative. Chest x-ray reporting persistent cardiomegaly, central vascular congestion with bilateral pleural effusions; small to moderate right pleural effusion with right mid to lower lung acute infiltrate/atelectasis, more prominent compared to yesterday. Maintaining O2 sats in the high 90s to 100% on 4 L nasal cannula. Denies chest pain, palpitations or shortness of breath. 03/17/2020 Continues to have rectal bleeding, maroon bowel movements 2 reported, current hemoglobin, increased to 8.3. Denies abdominal pain or cramping. Tolerating clear liquid diet with no nausea or vomiting.chest x- rayreporting worsening fluid overload with moderate layering right pleural effusion, Lasix increased. Maintaining O2 sats in the 90s on 5 L nasal cannula.creatinine stable at 2.09.denies chest pain, palpitations. 03/18/2020 continues to have maroon stools this morning 2. Hemoglobin 8.5. Maintaining O2 sats in the 90s on 5 L nasal cannula. Chest x-ray reporting scattered patchy airspace, interstitial infiltrates bilaterally right greater than left with improved aeration left lower lobe, persistent moderate right- sided pleural effusion. Chest ultrasound reported bilateral sites marked for possible thoracentesis, right pleural effusion pocket 10.5 cm left pleural effusion pocket 6.6 cm. Right thoracentesis pending. 03/19/2020 bowel movements no longer reported as maroon, reported as dark colored. Bowel movements X 2 this am. Denies abdominal pain. GI had discussed endoscopy, patient unsure if he wishes to proceed. Maintained on clear liquids X 4 days, with poor diet [id number] Hypoglycemic. Hemoglobin 9.3, creatinine 2.07. Right thoracentesis completed yesterday with 1 L removed, continuing to monitor left pleural effusion. 03/23/2020 maintained on Zosyn, afebrile. Thoracentesis/pleural fluid cultures reported negative.Diuresing well on Lasix IV push with 24-hour I&O reflecting a negative fluid balance but continues to have significant lower extremity edema. Creatinine worsening up to 2.58. Staff reports one maroon stool this morning, hemoglobin pending. Albumin 2.5. Maintaining O2 sats in the 90s on 6 L nasal cannula. Nephrology consulted. 03/24/2020 maintained on Lasix drip, continues to have significant edema ,urine output 300 mls over last 4 hours. Lasix drip increased to 15 MLS per hour as per nephrology with metolazone added. Denies chest pain, palpitations or increasing shortness of breath. Complains of increased weakness, feeling tired and fatigued. Consuming 25-50% of diet. Creatinine 2.68. Hemoglobin 8.8. Objective - Vital Signs Vital signs: Vital Signs Temp 97.8 F 03/24/20 09:40 Pulse 85 03/24/20 12:20 Resp 8 L 03/24/20 12:25 BP 114/69 03/24/20 12:20 Pulse Ox 91 L 03/24/20 12:25 Intake & Output 03/23/20 03/24/2020 18:59 06:59 18:59 Intake Total 615 609.5 122.667 Output Total 300 500 Balance 315 109.5 122.667 Weight 75.5 kg 75.5 kg Intake: IV 400 Piperacillin-Tazobactam 3 400 .375 gm In Sodium Chloride 0.9% 100 ml @ 25 mls/hr IVPB Q8HR [facility] Rx# :[id number] Intake, IV Titration 69.5 122.667 Amount Furosemide 100 mg In 69.5 122.667 Sodium Chloride 0.9% 90 ml @ 10 MG/HR 10 mls/hr IV .Q10H [facility] Rx#: [id number] Oral 125 540 Lipid 90 Piperacillin-Tazobactam 3 90 .375 gm In Sodium Chloride 0.9% 100 ml @ 25 mls/hr IVPB Q8HR [facility] Rx# :[id number] Output: Urine 300 500 Other: Voiding Method Indwelling Catheter Indwelling Catheter # Bowel Movements 1 - Exam General: Sitting up in chair, no acute distress, tired appearing ,alert and oriented 3 HEENT: [PERRL. EOMI. No pharyngeal erythema or exudate. Oral mucosa moist. Neck: [No adenopathy. No JVD Cardiac: [Heart regular in rate and rhythm. No S3. No S4. No clicks, rubs. No murmur. Lungs: Bilateral bases diminished. Abdomen: [Soft, nontender,No palpable mass. No organomegaly. no guarding, Positive Bowel sounds present. Extremities: Right hip tender, sensation grossly intact, 2+ bilateral lower extremity edema, no clubbing, no cyanosis, positive pulses Skin: left hand with first and second digit missing .No rash.] Neurologic: [No lateralizing deficits. CN II - XII grossly intact.] Microbiology 03/18/20 13:20 Thoracic Fluid Gram Stain - Final 03/18/20 13:20 Thoracic Fluid Body Fluid Culture - Final 03/15/20 06:35 Blood Blood Culture - Final No Growth after 144 hours 03/18/20 13:20 Thoracentesis Fluid Acid Fast Bacilli Smear - Final 03/18/20 13:20 Thoracentesis Fluid Acid Fast Bacilli Culture - Preliminary 03/18/20 13:20 Thoracentesis Fluid Fungal Culture - Preliminary - Labs CBC & Chem 7: 03/24/20 06:51 03/24/20 06:51 Labs: Abnormal Lab Results - Last 24 Hours (Table) 03/23/20 03/23/20 03/23/20 Range/Units 06:21 16:29 18:16 RBC 3.06 L 3.10 L (4.30-5.90) m/uL Hgb 8.6 L 8.4 L (13.0-17.5) gm/dL Hct 28.9 L 28.6 L (39.0-53.0) % MCHC 29.8 L 29.5 L (31.0-37.0) g/dL RDW 18.7 H 19.3 H (11.5-15.5) % Lymphocytes # 0.6 L (1.0-4.8) k/uL Sodium (137-145) mmol/L Chloride (98-107) mmol/L BUN (9-20) mg/dL Creatinine (0.66-1.25) mg/dL Glucose (74-99) mg/dL POC Glucose (mg/dL) 114 H (75-99) mg/dL Calcium (8.4-10.2) mg/dL Total Protein (6.3-8.2) g/dL Albumin (3.5-5.0) g/dL 03/23/20 03/24/20 03/24/20 Range/Units 20:49 05:47 06:51 RBC (4.30-5.90) m/uL Hgb (13.0-17.5) gm/dL Hct (39.0-53.0) % MCHC (31.0-37.0) g/dL RDW (11.5-15.5) % Lymphocytes # (1.0-4.8) k/uL Sodium 136 L (137-145) mmol/L Chloride 96 L (98-107) mmol/L BUN 48 H (9-20) mg/dL Creatinine 2.68 H (0.66-1.25) mg/dL Glucose 124 H (74-99) mg/dL POC Glucose (mg/dL) 169 H 144 H (75-99) mg/dL Calcium 8.3 L (8.4-10.2) mg/dL Total Protein 5.4 L (6.3-8.2) g/dL Albumin 2.8 L (3.5-5.0) g/dL 03/24/20 03/24/20 Range/Units 06:51 11:12 RBC 3.22 L (4.30-5.90) m/uL Hgb 8.8 L (13.0-17.5) gm/dL Hct 29.4 L (39.0-53.0) % MCHC 29.9 L (31.0-37.0) g/dL RDW 19.3 H (11.5-15.5) % Lymphocytes # 0.7 L (1.0-4.8) k/uL Sodium (137-145) mmol/L Chloride (98-107) mmol/L BUN (9-20) mg/dL Creatinine (0.66-1.25) mg/dL Glucose (74-99) mg/dL POC Glucose (mg/dL) 198 H (75-99) mg/dL Calcium (8.4-10.2) mg/dL Total Protein (6.3-8.2) g/dL Albumin (3.5-5.0) g/dL Assessment and Plan Assessment: -Acute GI bleed, in a patient on Eliquis. Anticoagulation Currently on hold, continues to decline endoscopy -Acute severe blood loss anemia secondary to the above, status post transfusion of 3 units of packed RBCs -Volume overload -Acute on chronic hypoxic respiratory failure secondary to the above; wears 2 L at home -Recent right in situ screw fixation for nondisplaced right transcervical femoral neck fracture, status post fall -Chronic CHF, diastolic dysfunction, EF 50-55% -Severe pulmonary hypertension -Recent Covid 19 pneumonia, repeat coronavirus testing reported negative -Bilateral pleural effusion, status post right thoracentesis, cytology negative. -Acute on chronic renal failure, prerenal, secondary to cardiorenal syndrome -Diabetes mellitus, uncontrolled, hypoglycemic secondary to poor oral intake -Hypertension -Chronic atrial fibrillation -Dementia,Cognitive impairment, recent ventral cognitive assessment at [facility] reported 11 out of 30 - prior nicotine dependence -Dyslipidemia -Medical debility -No Code, No CPR, No Intubation -Moderate protein malnutrition, PPN initiated -Hypokalemic Plan: Continue on current medication regime ,monitoring and symptomatic treatment. Diuretics as per nephrology. Maintain PPI. Close monitoring of hemoglobin, renal function, electrolytes with repeat labs ordered for a.m. The impression and plan of care has been dictated as directed. : I performed a history and examination of this patient, discussed the same with the dictator. I agree with the dictator's note ,documented as a scribe. Any additional findings or plans will be noted.
[2020-03-24] MEDS: METOLAZONE 5 MG TAB PO SCH (16:48)
[2020-03-24 16:54] LABS: Glucose,Whole Blood 225 mg/dL (75-99)
[2020-03-24 20:24] LABS: Glucose,Whole Blood 179 mg/dL (75-99)
[2020-03-24] MEDS: ATORVASTATIN 20 MG TAB PO SCH (21:03)
--- NOTE | 2020-03-25 01:27 | PN ---
PROGRESS NOTE DATE OF DICTATION: 03/24/2020 The patient is a 74-year-old white male admitted to the hospital with acute GI bleed and exacerbation of COPD/CHF. The patient continues to remain short of breath. Overall, he remains the same. As per the nursing staff he had one episode of bright red blood per rectum, moderate amount yesterday afternoon and he had a small amount of bright red blood last night and early this morning. The patient denies any abdominal pain. No nausea or vomiting. PHYSICAL EXAMINATION: On physical examination, appears comfortable, no apparent distress. Vital signs are stable. Blood pressure is 114/69. Pulse rate is 85. Temperature is 98. HEENT EXAMINATION: Unremarkable. Conjunctivae pink. Sclerae anicteric. Oral cavity, no lesions. NECK: No JVD or lymph node enlargement. CHEST: Decreased breath sounds bilaterally. HEART: Regular rate and rhythm. ABDOMEN: Soft. Bowel sounds are positive. No organomegaly. NEURO: Alert and oriented x3. No focal deficits. LABS: WBC 8, hemoglobin 8.8, platelets normal. Basic metabolic panel showed a BUN of 48, creatinine 2.68. Rest of the labs are within normal limits. IMPRESSION: 1. Acute gastrointestinal bleed. The patient has been having intermittent bleeding since being admitted to the hospital for the last one week. He received a total of 3 units of PRBC transfusion. Eliquis has been on hold. Refused to have any endoscopy intervention and also patient not a candidate given his underlying cardiorespiratory status. 2. Exacerbation of chronic obstructive pulmonary disease/congestive heart failure. The patient still remains short of breath. Pulmonary following the patient closely. 3. Chronic kidney disease. 4. Recent COVID-19 infection. RECOMMENDATIONS: 1. Continue with Protonix 40 mg daily. 2. Monitor CBC on a daily basis. 3. Continue to hold Eliquis. 4. Transfuse as needed. 5. No plans on any endoscopic intervention given his overall cardiorespiratory status. 6. We will follow with you closely. Thank you for this consultation. MMODL / IJN: [id number] /
[2020-03-25] MEDS: FUROSEMIDE 100 MG in SODIUM CHLORIDE 0.9% 90 ML IV SCH ×4 (01:47→23:48)
[2020-03-25] MEDS: ALPRAZolam 0.25 MG TAB PO PRN (02:30)
[2020-03-25] MEDS: MENTHOL (NICE) LOZENGE MUCOUS MEM PRN ×2 (02:40→21:08)
[2020-03-25 06:14] LABS: Glucose,Whole Blood 131 mg/dL (75-99)
[2020-03-25] MEDS: INSULIN ASPART (NovoLOG) 100 UNIT/ML VIAL SQ SCH ×4 (06:14→20:57)
[2020-03-25] MEDS: hydrALAZINE HCL 25 MG TAB PO SCH ×3 (06:18→20:58)
[2020-03-25] MEDS: ALBUTEROL NEBULIZED 2.5 MG/3 ML INHALATION PRN ×2 (07:05→10:56)
[2020-03-25 07:57] LABS: Calcium 8.7 mg/dL (8.4-10.2); Magnesium 2.1 mg/dL (1.6-2.3); Phosphorus 3.7 mg/dL (2.5-4.5); Potassium 3.8 mmol/L (3.5-5.1); Total Bilirubin 0.5 mg/dL (0.2-1.3); Total Protein 5.9 g/dL (6.3-8.2)
[2020-03-25 08:01] LABS: Anisocytosis Slight; HCT 29.4 % (39.0-53.0); HGB 8.8 gm/dL (13.0-17.5); Hypochromasia Marked; MCH 27.2 pg (25.0-35.0); MCV 90.8 fL (80.0-100.0); Mean Platelet Volume 9.1; Platelet Count 207 k/uL (150-450); Poikilocytosis Slight; RBC 3.24 m/uL (4.30-5.90); RDW 19.7 % (11.5-15.5); WBC 9.9 k/uL (3.8-10.6)
--- NOTE | 2020-03-25 08:40 | XR ---
EXAMINATION TYPE: XR chest 1V portable DATE OF EXAM: 03/25/2020 Comparison: 03/22/2020 Clinical History: 74-year-old male CHF Findings: Right heart margin obscured by adjacent pleural parenchymal opacity. Interstitial densities persist t khalif there is improvement in aeration at the left midlung. Continued small right pleural effusion wi th right basilar opacity extending up to the midlung level, slightly worsened. Impression: Continued CHF with pulmonary vascular congestion. Some improvement in aeration on the left but the sm all right effusion with adjacent atelectasis and/or consolidation is slightly worsened.
[2020-03-25] MEDS: METOPROLOL TARTRATE 50 MG TAB PO SCH ×2 (09:28→20:58)
[2020-03-25] MEDS: LINAGLIPTIN 5 MG TABLET PO SCH (09:29)
[2020-03-25] MEDS: ISOSORBIDE MONONITRATE ER 30 MG TAB.ER.24H PO SCH (09:29)
[2020-03-25] MEDS: buPROPion XL 150 MG TAB.ER.24H PO SCH (09:29)
[2020-03-25] MEDS: METOLAZONE 5 MG TAB PO SCH (09:29)
[2020-03-25] MEDS: ESCITALOPRAM 10 MG TAB PO SCH (09:29)
[2020-03-25] MEDS: MAGNESIUM OXIDE 400 MG TAB PO SCH (09:29)
[2020-03-25] MEDS: LIDOCAINE 5% PATCH TOPICAL SCH (09:29)
[2020-03-25] MEDS: PANTOPRAZOLE 40 MG/10 ML VIAL IVP SCH ×2 (09:30→20:57)
--- NOTE | 2020-03-25 10:25 | P.PN ---
Subjective Patient is seen in follow-up for acute kidney injury on chronic kidney disease. Patient has chronic kidney disease stage IIIB/4 with baseline creatinine near 2. Creatinine 2.87 today. Maintain on Lasix drip at 15 mL an hour along with metolazone. Urine output about 1200 mL overnight. Oral intake is fair. Still quite edematous. Denies chest pain or shortness of breath. Vital signs are stable. General: The patient appeared well nourished and normally developed. HEENT: Head exam is unremarkable. Neck is without jugular venous distension. LUNGS: Breath sounds decreased. HEART: Rate and Rhythm are regular. First and second heart sounds normal. ABDOMEN: Soft, nontender. EXTREMITITES: 2+ edema. Objective - Vital Signs Vital signs: Vital Signs Temp 97.6 F 03/25/20 04:00 Pulse 84 03/25/20 07:15 Resp 18 03/25/20 04:00 BP 153/76 03/25/20 04:00 Pulse Ox 97 03/25/20 04:00 Intake & Output 03/24/20 03/25/20 03/25/20 18:59 06:59 18:59 Intake Total 177.417 100 Output Total 1225 Balance 177.417 -1125 Weight 75.5 kg 81.5 kg Intake: Intake, IV Titration 177.417 100 Amount Furosemide 100 mg In 177.417 100 Sodium Chloride 0.9% 90 ml @ 15 MG/HR 15 mls/hr IV .Q6H40M [facility] Rx#: [id number] Output: Urine 1225 Other: Voiding Method Indwelling Catheter Indwelling Catheter # Bowel Movements 1 - Labs CBC & Chem 7: 03/25/20 06:50 03/25/20 06:50 Labs: Abnormal Lab Results - Last 24 Hours (Table) 03/24/20 03/24/20 03/24/20 Range/Units 06:51 11:12 16:53 RBC 3.22 L (4.30-5.90) m/uL Hgb 8.8 L (13.0-17.5) gm/dL Hct 29.4 L (39.0-53.0) % MCHC 29.9 L (31.0-37.0) g/dL RDW 19.3 H (11.5-15.5) % Lymphocytes # 0.7 L (1.0-4.8) k/uL Chloride (98-107) mmol/L BUN (9-20) mg/dL Creatinine (0.66-1.25) mg/dL Glucose (74-99) mg/dL POC Glucose (mg/dL) 198 H 225 H (75-99) mg/dL Total Protein (6.3-8.2) g/dL Albumin (3.5-5.0) g/dL 03/24/20 03/25/20 03/25/20 Range/Units 20:22 06:13 06:50 RBC (4.30-5.90) m/uL Hgb (13.0-17.5) gm/dL Hct (39.0-53.0) % MCHC (31.0-37.0) g/dL RDW (11.5-15.5) % Lymphocytes # (1.0-4.8) k/uL Chloride 96 L (98-107) mmol/L BUN 48 H (9-20) mg/dL Creatinine 2.87 H (0.66-1.25) mg/dL Glucose 101 H (74-99) mg/dL POC Glucose (mg/dL) 179 H 131 H (75-99) mg/dL Total Protein 5.9 L (6.3-8.2) g/dL Albumin 3.0 L (3.5-5.0) g/dL 03/25/20 Range/Units 06:50 RBC 3.24 L (4.30-5.90) m/uL Hgb 8.8 L (13.0-17.5) gm/dL Hct 29.4 L (39.0-53.0) % MCHC 30.0 L (31.0-37.0) g/dL RDW 19.7 H (11.5-15.5) % Lymphocytes # (1.0-4.8) k/uL Chloride (98-107) mmol/L BUN (9-20) mg/dL Creatinine (0.66-1.25) mg/dL Glucose (74-99) mg/dL POC Glucose (mg/dL) (75-99) mg/dL Total Protein (6.3-8.2) g/dL Albumin (3.5-5.0) g/dL Assessment and Plan Plan: Assessment: 1. Acute kidney injury mostly prerenal secondary to cardiorenal syndrome. Renal function fairly a little worse due to diuresis. Creatinine 2.87 today. Renal ultrasound from January 2020 revealed small right kidney but no evidence of hydronephrosis. UA from last month was completely benign. 2. Chronic kidney disease stage IIIB/4 secondary to nephrosclerosis with baseline creatinine near 2. 3. Volume overload. 4. Right-sided pleural effusion status post thoracentesis with 1 L drained on March 18. 5. Acute on chronic diastolic CHF with moderate mitral regurgitation, severe tricuspid regurgitation. 6. Severe pulmonary hypertension. 7. GI bleed status post 3 units of blood transfusion. Anticoagulation held. GI following. 8. Anemia of chronic kidney disease. Rule out iron deficiency. Maintained on Aranesp. Plan: Maintain Lasix drip at 15 mL an hour. Increase metolazone to 5 mg twice a day. Status post 25 g IV albumin 2 doses on March 23. Continue to monitor renal function and urine output. Repeat electrolytes in the morning. Follow-up iron studies. I discussed with the patient the potential need to start renal placement therapy mostly for ultrafiltration. He is hesitant at this time. Also discussed with the nurse and mattress spring encaser. Will further discuss with his sister.
[2020-03-25 11:29] LABS: Glucose,Whole Blood 164 mg/dL (75-99)
--- NOTE | 2020-03-25 14:48 | P.PN ---
Subjective Progress Note Date: 03/25/20 Principal diagnosis: Acute GI bleeding, acute exacerbation of CHF This is a 74-year-old white male with history of multiple medical problems, I saw this patient recently for cold 19 pneumonitis. I also saw the patient for right hip fracture requiring surgery and the fracture was secondary to fall. Patient was eventually discharged to [facility] on the abbasi. And he was brought in this morning mostly complaining of bloody stools, blood-tinged sputum, and hematuria. Yesterday his hemoglobin was 6.8, however today his hemoglobin was noted to be as low as 5.3 on admission. Patient was on Eliquis for atrial fibrillation, and upon evaluation in the ER, patient was placed on Kcentra, transfused a total of 2 units of packed RBCs so far, and his Eliquis was placed on hold. The patient is not a great historian, however he denies any chest pain, denies any fever, no chills, he had occasional episodes of blood-tinged sputum, denies any nausea vomiting abdominal pain. 2 units of packed RBCs were given since admission, repeat hemoglobin is pending. Reviewing his last admis adelita, patient was discharged on 03/09, he had the right in situ screw fixation a nondisplaced right femoral neck fracture. His other medical problems included hypoxic respiratory failure secondary to chronic diastolic dysfunction, severe pulmonary hypertension, covid 19 pneumonitis, diabetes, hypertension, chronic hypoxic respiratory failure secondary to COPD, normally he is on option at 2 L. And he is also known to have history of cognitive impairment/dementia. Reevaluated today on 03/16/20, patient remains in the ICU. Patient dropped his hemoglobin down to 6.8 today. Continues to have intermittent episodes of maroon colored stools. Patient is supposed to be receiving 1 unit of packed RBCs today. Remains on IV fluid at KVO, oxygen at 4 L/m and his O2 saturation is 100%. Remains on empiric antibiotics in the form of Zosyn and Levaquin. Patient had a marginal urine output hence I have recommended after he receives the blood transfusion to be given at least 40 mg of Lasix IV push 1. So far the patient has received 3 units of packed RBCs since admission. Electrolytes are normal BUN is 51 creatinine 2.10 WBC count is 6.9. Chest x-ray continues to show bilateral pleural effusions, right midlung and right lower lobe opacity, patient had recent pneumonia secondary to Covid 19 pneumonitis. Reevaluated today on 03/17/20, patient remains in the ICU, continues to have intermittent episodes of maroon colored stools. Hemoglobin however is holding, it is 8.3 today, and it was 8.0 yesterday. Patient received a total of 3 units of packed RBCs since admission. EGD was not performed yesterday, no note from gastroenterology today whether patient is going to have EGD or colonoscopy or both. According to the note from yesterday, decision on endoscopic evaluation will be decided upon pending clinical course. In the meantime I will plan to transfer the patient out of the ICU to a regular medical floor, and continue same treatment plan. Reevaluated today on 03/18/20, patient remains in the ICU, he is presently an overflow. Doing fairly well, had one maroon stool last night, and he received a total of 3 units of packed RBCs since admission. Patient is feeling better, b reathing a lot easier, however he remains on 5 L nasal cannula without O2 saturation of 98%, chest x-ray showed bilateral pleural effusions, ultrasound of the chest showed a good sized right-sided pleural effusion, large enough to be tapped and drained. Considering the patient remains on relatively high FiO2, I would proceed with thoracentesis today on this patient. In the meantime we'll continue present supportive care measures. Chest x-ray ultrasound and labs were all reviewed. No plans by gastroenterology to perform endoscopic evaluation at this point. On 03/19/2020 patient is seen in follow-up in the intensive care unit, he is awaiting a bed on selective care, he has been an overflow status for last 2 days. Vital signs are stable, no worsening dyspnea. He remains on 6 L of oxyge n with a pulse ox of 95-96%, hemodynamically stable, his been afebrile, his respirations are nonlabored, breathing is comfortable. His hemoglobin is 9.3, and he received a total of 3 units of blood during this admission. His Eliquis remains on hold, GI service is following, and apparently patient refused to have any endoscopic intervention at this time. In the meantime patient continues to have some intermittent dark colored stools and had one early this morning, no abdominal pain, no nausea or vomiting. No tachycardia. Patient has been started on TPN infusion for nutrition. He is tolerating clear liquid diet. Yesterday patient underwent right-sided thoracentesis with removal of 1 L of light jimmie-colored fluid. Pleural fluid analysis shows transudate based on the LDH and protein content. Cultures are pending so far. She remains on IV Lasix of 40 mg every 12 hours and he is in -2000 and fluid balance over the last 24 hours. Yesterday chest x-ray following his right-sided thoracentesis showed improvement in aeration of the right lower lobe, no new chest x-ray today. Clinically patient is doing well, he's been up in the chair, tolerates activity well, he is generally weak. He remains on empiric antibiotics in the form of Zosyn. On 03/24/2020 patient seen in follow-up on selective care unit. is awake and alert, in no acute distress, currently on 8 L per high flow nasal cannula his pulse ox is 91%, appears to be in no acute distress at rest, but generally patient is weak, and does have some exertional dyspnea, but overall doing better, breathing easier, his had no fever or chills. his last chest x-ray was done on 03/22/2020 showing increased interstitium, with bilateral pleural effusions. patient is status post right-sided thoracentesis on 03/18/2020 would removal of 1 L of light jimmie-colored pleural fluid which was shown to be transudative in nature based on LDH and protein content. patient is currently on Lasix drip at 15 mg per hour, and metolazone, per nephrology, he is positive for 424 mL fluid balance over the last 24 hours. his labs have been reviewed, slightly worsening renal function, would be on a 48 and creatinine of 2.68. Serum sodium is 136, potassium 3.7, chloride is 96, CO2 is 30, no nausea vomiting or diarrhea. monitor car operator shows sinus rhythm rate of 78 BPM. abdomen is soft, nontender. patient's Eliquis continues to be on hold patient is only getting prophylactic dose of Lovenox at 30 mg daily. On 03/17/2020 patient seen in follow-up on selective care unit. Remains on Lasix infusion, currently at 15 mg per hour, he is in -147 mL fluid balance, breathing seems to be comfortable, FiO2 is down to 5 L, his pulse ox is 97%, he denies any specific complaints, his been afebrile, today's chest x-ray has been reviewed showing continued CHF with pulmonary vascular congestion. Still has some mild pretibial edema in lower extremities. Labs have been reviewed, showing white blood cell, 9.9, hemoglobin of 8.8, sodium is 138, potassium is 3.8, chloride is 96, CO2 is 29, BUN is 48, creatinine is 2.87. Objective - Vital Signs Vital signs: Vital Signs Temp 97.6 F 03/25/20 04:00 Pulse 84 03/25/20 11:03 Resp 18 03/25/20 04:00 BP 153/76 03/25/20 04:00 Pulse Ox 97 03/25/20 04:00 Intake & Output 03/24/20 03/25/20 03/25/20 18:59 06:59 18:59 Intake Total 177.417 100 340 Output Total 1225 Balance 177.417 -1125 340 Weight 75.5 kg 81.5 kg Intake: Intake, IV Titration 177.417 100 100 Amount Furosemide 100 mg In 177.417 100 100 Sodium Chloride 0.9% 90 ml @ 15 MG/HR 15 mls/hr IV .Q6H40M [facility] Rx#: [id number] Oral 240 Output: Urine 1225 Other: Voiding Method Indwelling Catheter Indwelling Catheter # Bowel Movements 1 2 - Exam GENERAL EXAM: Alert, very pleasant, 74-year-old white male, currently on 5 L of oxygen pulse ox of 97% comfortable in no apparent distress. HEAD: Normocephalic/atraumatic. EYES: Normal reaction of pupils, equal size. Conjunctiva pink, sclera white. NOSE: Clear with pink turbinates. THROAT: No erythema or exudates. NECK: No masses, no JVD, no thyroid enlargement, no adenopathy. CHEST: No chest wall deformity. Symmetrical expansion. LUNGS: Equal air entry with no crackles, wheeze, rhonchi or dullness. CVS: Regular rate and rhythm, normal S1 and S2, no gallops, no murmurs, no rubs ABDOMEN: Soft, nontender. No hepatosplenomegaly, normal bowel sounds, no guarding or rigidity. EXTREMITIES: No clubbing, mild pre-tibial edema, no cyanosis, 2+ pulses and upper and lower extremities. MUSCULOSKELETAL: Muscle strength and tone normal. SPINE: No scoliosis or deformity SKIN: No rashes CENTRAL NERVOUS SYSTEM: Alert and oriented -3. No focal deficits, tone is normal in all 4 extremities. PSYCHIATRIC: Alert and oriented -3. Appropriate affect. Intact judgment and insight. - Labs CBC & Chem 7: 03/25/20 06:50 03/25/20 06:50 Labs: Abnormal Lab Results - Last 24 Hours (Table) 03/24/20 03/24/20 03/25/20 Range/Units 16:53 20:22 06:13 RBC (4.30-5.90) m/uL Hgb (13.0-17.5) gm/dL Hct (39.0-53.0) % MCHC (31.0-37.0) g/dL RDW (11.5-15.5) % Chloride (98-107) mmol/L BUN (9-20) mg/dL Creatinine (0.66-1.25) mg/dL Glucose (74-99) mg/dL POC Glucose (mg/dL) 225 H 179 H 131 H (75-99) mg/dL Total Protein (6.3-8.2) g/dL Albumin (3.5-5.0) g/dL 03/25/20 03/25/20 03/25/20 Range/Units 06:50 06:50 11:29 RBC 3.24 L (4.30-5.90) m/uL Hgb 8.8 L (13.0-17.5) gm/dL Hct 29.4 L (39.0-53.0) % MCHC 30.0 L (31.0-37.0) g/dL RDW 19.7 H (11.5-15.5) % Chloride 96 L (98-107) mmol/L BUN 48 H (9-20) mg/dL Creatinine 2.87 H (0.66-1.25) mg/dL Glucose 101 H (74-99) mg/dL POC Glucose (mg/dL) 164 H (75-99) mg/dL Total Protein 5.9 L (6.3-8.2) g/dL Albumin 3.0 L (3.5-5.0) g/dL Assessment and Plan Plan: Assessment: #1. Acute GI bleed, likely related to lower GI tract source, most likely seco ndary to diverticular disease worsened by anticoagulation in the form of Eliquis, patient has declined endoscopic studies #2. Acute GI blood loss anemia, patient required transfusion with 3 units of packed red blood cells #3. Recent history of COVID 19 infection #4. Severe pulmonary hypertension #5. Chronic hypoxic rest or a failure related to COPD, chronic diastolic congestive heart failure and COVID 19 pneumonitis #6. Bilateral pleural effusions, status post right-sided thoracentesis on 03/18/2020 with removal of 1 L of light colored jimmie fluid, based on the protein and LDH level the fluid is transudative, related to acute exacerbation of CHF #7. Chronic atrial fibrillation was on Eliquis which is on hold right now related to acute GI bleeding #8. Acute on chronic failure #9. History of dementia #10. Type 2 diabetes mellitus #11. Benign essential hypertension #12. Dyslipidemia #13. Severe COPD, oxygen dependent, quit smoking 3 years ago #14. Chronic medical debility and deconditioning related to recent history of multiple hospitalizations, multiple comorbidities Plan: Today's chest X-ray has been reviewed, still showing changes of congestive heart failure, patient remains on Lasix infusion, he is in negative fluid balance, FiO2 is down to 5 L, continue weaning FiO2, overall patient is breathing easier, diuretic management per cardiology, for complaints of chest pain, continue current treatment. Continue daily electrolytes and renal profile, nephrology is following. Still edematous, slightly improved. We will continue to follow. I performed a history & physical examination of the patient and discussed their management with my nurse practitioner, Valorie Gilbert. I reviewed the nurse practitioner's note and agree with the documented findings and plan of care. Lung sounds are positive for diminished breath sounds. The findings and the impression was discussed with the patient. I attest to the documentation by the nurse practitioner. Time with Patient: Less than 30
--- NOTE | 2020-03-25 14:57 | P.PN ---
Subjective Progress Note Date: 03/25/20 Hospital course:74-year-old male resident currently at [facility] subacute rehab ,known to the practice with history of severe pulmonary hypertension, hypertension hyperlipidemia diabetes mellitus type 2 former smoker anxiety COPD stage III chronic renal insufficiency, recent pneumonia, early dementia (Montral cognitive scoring at [facility] 11 out of 30), recent right hip in situ screw fixation for nondisplaced right transcervical femoral neck fracture- on eliquis, transferred to the ER with complaints of rectal bleeding, maroon with blood clots. Hemoglobin yesterday reported from the ER at 6.8, on arrival 5.3, hypoxic, requiring a nonrebreather. Denies abdominal pain, complains of right hip and rib pain. No hemoptysis, no hematochezia. In the ER patient received K Centra two units of packed RBCs, with Eliquis placed on hold. Chest x-ray reporting increased infiltrate on the right lung worsening from prior x- ray. Zosyn, Levaquin initiated for potential H Pneumonia. INR 1.2, BUN 48, creatinine 2.18. CO2 32. Troponin 0.032. Denies chest pain, palpitations , ox ygen has been weaned down to 4 L nasal cannula .Poor historian. GI and pulmonary/generation mechanic helper consulted. 03/16/20 rectal bleeding decreasing, staff reports maroon stools times one with few clots today. Hemoglobin 6.8, received 1 unit of packed RBC. Evaluated by GI with no EGD recommended at this time. Creatinine trending down to 2.1. Continues on empiric antibiotics of Zosyn and Levaquin. Repeat coronavirus reporting negative. Chest x-ray reporting persistent cardiomegaly, central vascular congestion with bilateral pleural effusions; small to moderate right pleural effusion with right mid to lower lung acute infiltrate/atelectasis, more prominent compared to yesterday. Maintaining O2 sats in the high 90s to 100% on 4 L nasal cannula. Denies chest pain, palpitations or shortness of breath. 03/17/2020 Continues to have rectal bleeding, maroon bowel movements 2 reported, current hemoglobin, increased to 8.3. Denies abdominal pain or cramping. Tolerating clear liquid diet with no nausea or vomiting.chest x- rayreporting worsening fluid overload with moderate layering right pleural effusion, Lasix increased. Maintaining O2 sats in the 90s on 5 L nasal cannula.creatinine stable at 2.09.denies chest pain, palpitations. 03/18/2020 continues to have maroon stools this morning 2. Hemoglobin 8.5. Maintaining O2 sats in the 90s on 5 L nasal cannula. Chest x-ray reporting scattered patchy airspace, interstitial infiltrates bilaterally right greater than left with improved aeration left lower lobe, persistent moderate right- sided pleural effusion. Chest ultrasound reported bilateral sites marked for possible thoracentesis, right pleural effusion pocket 10.5 cm left pleural effusion pocket 6.6 cm. Right thoracentesis pending. 03/19/2020 bowel movements no longer reported as maroon, reported as dark colored. Bowel movements X 2 this am. Denies abdominal pain. GI had discussed endoscopy, patient unsure if he wishes to proceed. Maintained on clear liquids X 4 days, with poor diet [id number]%. Hypoglycemic. Hemoglobin 9.3, creatinine 2.07. Right thoracentesis completed yesterday with 1 L removed, continuing to monitor left pleural effusion. 03/23/2020 maintained on Zosyn, afebrile. Thoracentesis/pleural fluid cultures reported negative.Diuresing well on Lasix IV push with 24-hour I&O reflecting a negative fluid balance but continues to have significant lower extremity edema. Creatinine worsening up to 2.58. Staff reports one maroon stool this morning, hemoglobin pending. Albumin 2.5. Maintaining O2 sats in the 90s on 6 L nasal cannula. Nephrology consulted. 03/24/2020 maintained on Lasix drip, continues to have significant edema ,urine output 300 mls over last 4 hours. Lasix drip increased to 15 MLS per hour as per nephrology with metolazone added. Denies chest pain, palpitations or increasing shortness of breath. Complains of increased weakness, feeling tired and fatigued. Consuming 25-50% of diet. Creatinine 2.68. Hemoglobin 8.8. 03/25/2020 yesterday Lasix drip increased to 15 mg per hour, continues to have significant edema. Creatinine continuing to trend up, 2.87. Chest x-ray reporting continued CHF with pulmonary vascular congestion.Maroon stool 1 this morning, hemoglobin 8.8, DVT prophylaxis with Lovenox has been discontinued. ROSEMARIE/compression stockings ordered. Maintaining O2 sats in the 90s on 5 L nasal cannula. Denies chest pain, palpitations or increasing shortness of breath. Objective - Vital Signs Vital signs: Vital Signs Temp 97.6 F 03/25/20 04:00 Pulse 84 03/25/20 11:03 Resp 18 03/25/20 04:00 BP 153/76 03/25/20 04:00 Pulse Ox 97 03/25/20 04:00 Intake & Output 03/24/20 03/25/20 03/25/20 18:59 06:59 18:59 Intake Total 177.417 100 240 Output Total 1225 Balance 177.417 -1125 240 Weight 75.5 kg 81.5 kg Intake: Intake, IV Titration 177.417 100 Amount Furosemide 100 mg In 177.417 100 Sodium Chloride 0.9% 90 ml @ 15 MG/HR 15 mls/hr IV .Q6H40M [facility] Rx#: [id number] Oral 240 Output: Urine 1225 Other: Voiding Method Indwelling Catheter Indwelling Catheter # Bowel Movements 1 2 - Exam General: Sitting up in chair, no acute distress, tired appearing ,alert and oriented 3 HEENT: [PERRL. EOMI. No pharyngeal erythema or exudate. Oral mucosa moist. Neck: [No adenopathy. No JVD Cardiac: [Heart regular in rate and rhythm. No S3. No S4. No clicks, rubs. No m urmur. Lungs: Bilateral bases diminished. Abdomen: [Soft, nontender,No palpable mass. No organomegaly. no guarding, Positive Bowel sounds present. Extremities: Right hip tender, sensation grossly intact, 2+ bilateral lower extremity edema, no clubbing, no cyanosis, positive pulses Skin: left hand with first and second digit missing .No rash.] Neurologic: [No lateralizing deficits. CN II - XII grossly intact.] - Labs CBC & Chem 7: 03/25/20 06:50 03/25/20 06:50 Labs: Abnormal Lab Results - Last 24 Hours (Table) 03/24/20 03/24/20 03/24/20 Range/Units 06:51 11:12 16:53 RBC 3.22 L (4.30-5.90) m/uL Hgb 8.8 L (13.0-17.5) gm/dL Hct 29.4 L (39.0-53.0) % MCHC 29.9 L (31.0-37.0) g/dL RDW 19.3 H (11.5-15.5) % Lymphocytes # 0.7 L (1.0-4.8) k/uL Chloride (98-107) mmol/L BUN (9-20) mg/dL Creatinine (0.66-1.25) mg/dL Glucose (74-99) mg/dL POC Glucose (mg/dL) 198 H 225 H (75-99) mg/dL Total Protein (6.3-8.2) g/dL Albumin (3.5-5.0) g/dL 03/24/20 03/25/20 03/25/20 Range/Units 20:22 06:13 06:50 RBC (4.30-5.90) m/uL Hgb (13.0-17.5) gm/dL Hct (39.0-53.0) % MCHC (31.0-37.0) g/dL RDW (11.5-15.5) % Lymphocytes # (1.0-4.8) k/uL Chloride 96 L (98-107) mmol/L BUN 48 H (9-20) mg/dL Creatinine 2.87 H (0.66-1.25) mg/dL Glucose 101 H (74-99) mg/dL POC Glucose (mg/dL) 179 H 131 H (75-99) mg/dL Total Protein 5.9 L (6.3-8.2) g/dL Albumin 3.0 L (3.5-5.0) g/dL 03/25/20 Range/Units 06:50 RBC 3.24 L (4.30-5.90) m/uL Hgb 8.8 L (13.0-17.5) gm/dL Hct 29.4 L (39.0-53.0) % MCHC 30.0 L (31.0-37.0) g/dL RDW 19.7 H (11.5-15.5) % Lymphocytes # (1.0-4.8) k/uL Chloride (98-107) mmol/L BUN (9-20) mg/dL Creatinine (0.66-1.25) mg/dL Glucose (74-99) mg/dL POC Glucose (mg/dL) (75-99) mg/dL Total Protein (6.3-8.2) g/dL Albumin (3.5-5.0) g/dL Assessment and Plan Assessment: -Acute GI bleed, in a patient on Eliquis. Anticoagulation Currently on hold, continues to decline endoscopy -Acute severe blood loss anemia secondary to the above, status post transfusion of 3 units of packed RBCs -Volume overload -Acute on chronic hypoxic respiratory failure secondary to the above; wears 2 L at home -Recent right in situ screw fixation for nondisplaced right transcervical femoral neck fracture, status post fall -Chronic CHF, diastolic dysfunction, EF 50-55% -Severe pulmonary hypertension -Recent Covid 19 pneumonia, repeat coronavirus testing reported negative -Bilateral pleural effusion, status post right thoracentesis, cytology negative. -Acute on chronic renal failure, prerenal, secondary to diuresing, cardiorenal syndrome -Diabetes mellitus, uncontrolled, hypoglycemic secondary to poor oral intake -Hypertension -Chronic atrial fibrillation -Dementia,Cognitive impairment, recent ventral cognitive assessment at [facility] [place] reported 11 out of 30 - prior nicotine dependence -Dyslipidemia -Medical debility -No Code, No CPR, No Intubation -Moderate protein malnutrition, PPN initiated -Hypokalemic Plan: Continue on current medication regime ,monitoring and symptomatic treatment. Ultrafiltration/hemodialysis being discussed by nephrology. Diuretics as per nephrology. Maintain PPI. Close monitoring of hemoglobin, renal function, electrolytes with repeat labs ordered for a.m. prognosis guarded to multiple complex medical issues. The impression and plan of care has been dictated as directed. : I performed a history and examination of this patient, discussed the same with the dictator. I agree with the dictator's note ,documented as a scribe. Any additional findings or plans will be noted.
[2020-03-25 16:51] LABS: Glucose,Whole Blood 168 mg/dL (75-99)
--- NOTE | 2020-03-25 17:37 | PN ---
PROGRESS NOTE DATE OF DICTATION: 03/25/2020 This patient is a 74-year-old pleasant white male admitted to the hospital with acute GI bleed. He received 4 units of PRBC transfusion so far. Hemoglobin remains stable at 8.8 g/dL. He continues to have a small amount of bright red blood per rectum every day. Last one was this morning, as per the nursing staff. Today he is complaining of dysphagia; he is not able to swallow any solid food, requesting a soft diet. He denies any abdominal pain. He still continues to remain short of breath. PHYSICAL EXAMINATION: Appears comfortable. VITAL SIGNS: Blood pressure 153/91, temperature 98.1, and pulse rate 96. HEENT examination unremarkable. Conjunctivae pink. Sclerae anicteric. Oral cavity no lesions. NECK: No JVD or lymph node enlargement. CHEST: Decreased breath sounds bilaterally. HEART: Regular rate and rhythm. ABDOMEN: Soft. Bowel sounds are positive. No organomegaly. EXTREMITIES: No pedal edema. NEUROLOGIC: Alert and oriented x3. No focal deficits. LABS: Labs from today show hemoglobin 8.8, WBC 9, platelets normal. Basic metabolic panel: BUN 48, creatinine 2.87. IMPRESSION: 1. Acute gastrointestinal bleed, possibly lower in etiology. The patient has been off the Eliquis for 7 days. He continues to have a small amount of bright red blood per rectum every day. Hemoglobin stable at 8.8 g/dL. He refused endoscopic intervention during this hospitalization. 2. Dysphagia since this morning. He is not able to swallow any solid food. Rule out dustin esophagitis or other etiologies. 3. Chronic obstructive pulmonary disease exacerbation/congestive heart failure. 4. Acute kidney injury. RECOMMENDATIONS: 1. Will obtain barium swallow tomorrow. 2. Change his diet to a soft diet. 3. Continue Protonix 40 mg daily. 4. Monitor for GI bleed closely. 5. CBC in the morning. We will follow with you closely. Thank you for this consultation. MMODL / IJN: [id number] /
[2020-03-25 20:05] LABS: Ferritin 283.5 ng/mL (22.0-322.0)
[2020-03-25 20:28] LABS: Glucose,Whole Blood 187 mg/dL (75-99)
[2020-03-25 20:35] LABS: % Iron Saturation 17.45 (15.00-50.00)
[2020-03-25] MEDS: ATORVASTATIN 20 MG TAB PO SCH (20:58)
[2020-03-25] MEDS ORDERED: METOLAZONE 5 MG TAB PO SCH (21:00)
[2020-03-25 21:10] VITALS: RESP 18
[2020-03-26 00:12] VITALS: BP 129/78; PULSE 80; TEMP 97.5
--- NOTE | 2020-03-27 11:07 | P.DS ---
Providers Date of admission: 03/15/20 08:04 Expected date of discharge: 03/26/20 Attending physician: Hood Akhtar Consults: 03/15/20 08:08 Consult Physician Stat Consulting Provider: Kristine Gay Consult Reason/Comments: COVID, GI Bleed, pneumonia Do you want consulting provider notified?: Yes Consult Physician Stat Consulting Provider: Lucas Mosher Consult Reason/Comments: GI bleed Do you want consulting provider notified?: Yes 03/23/20 12:19 Consult Physician Routine Consulting Provider: Jose Juan Bajwa Consult Reason/Comments: Acute on chronic renal failure, cardiorenal syndrome Do you want consulting provider notified?: Yes Primary care physician: Hood Akhtar Hospital Course: Hospital course:74-year-old male resident currently at [facility] rehab ,known to the practice with history of severe pulmonary hypertension, hypertension hyperlipidemia diabetes mellitus type 2 former smoker anxiety COPD stage III chronic renal insufficiency, recent pneumonia, early dementia (Montral cognitive scoring at [facility] 11 out of 30), recent right hip in situ screw fixation for nondisplaced right transcervical femoral neck fracture- on eliquis, transferred to the ER with complaints of rectal bleeding, maroon with blood clots. Hemoglobin yesterday reported from the ER at 6.8, on arrival 5.3, hypoxic, requiring a nonrebreather. Denies abdominal pain, complains of right hip and rib pain. No hemoptysis, no hematochezia. In the ER patient received K Centra two units of packed RBCs, with Eliquis placed on hold. Chest x-ray reporting increased infiltrate on the right lung worsening from prior x- ray. Zosyn, Levaquin initiated for potential H Pneumonia. INR 1.2, BUN 48, creatinine 2.18. CO2 32. Troponin 0.032. Denies chest pain, palpitations , oxygen has been weaned down to 4 L nasal cannula .Poor historian. GI and pulmonary/lubrication equipment servicer consulted. 03/16/20 rectal bleeding decreasing, staff reports maroon stools times one with few clots today. Hemoglobin 6.8, received 1 unit of packed RBC. Evaluated by GI with no EGD recommended at this time. Creatinine trending down to 2.1. Continues on empiric antibiotics of Zosyn and Levaquin. Repeat coronavirus reporting negative. Chest x-ray reporting persistent cardiomegaly, central vascular congestion with bilateral pleural effusions; small to moderate right pleural effusion with right mid to lower lung acute infiltrate/atelectasis, more prominent compared to yesterday. Maintaining O2 sats in the high 90s to 100% on 4 L nasal cannula. Denies chest pain, palpitations or shortness of breath. 03/17/2020 Continues to have rectal bleeding, maroon bowel movements 2 reported, current hemoglobin, increased to 8.3. Denies abdominal pain or cramping. Tolerating clear liquid diet with no nausea or vomiting.chest x- rayreporting worsening fluid overload with moderate layering right pleural effusion, Lasix increased. Maintaining O2 sats in the 90s on 5 L nasal cannula.creatinine stable at 2.09.denies chest pain, palpitations. 03/18/2020 continues to have maroon stools this morning 2. Hemoglobin 8.5. Maintaining O2 sats in the 90s on 5 L nasal cannula. Chest x-ray reporting scattered patchy airspace, interstitial infiltrates bilaterally right greater than left with improved aeration left lower lobe, persistent moderate right- sided pleural effusion. Chest ultrasound reported bilateral sites marked for possible thoracentesis, right pleural effusion pocket 10.5 cm left pleural effusion pocket 6.6 cm. Right thoracentesis pending. 03/19/2020 bowel movements no longer reported as maroon, reported as dark colored. Bowel movements X 2 this am. Denies abdominal pain. GI had discussed endoscopy, patient unsure if he wishes to proceed. Maintained on clear liquids X 4 days, with poor diet [id number]%. Hypoglycemic. Hemoglobin 9.3, creatinine 2.07. Right thoracentesis completed yesterday with 1 L removed, continuing to monitor left pleural effusion. 03/23/2020 maintained on Zosyn, afebrile. Thoracentesis/pleural fluid cultures reported negative.Diuresing well on Lasix IV push with 24-hour I&O reflecting a negative fluid balance but continues to have significant lower extremity edema. Creatinine worsening up to 2.58. Staff reports one maroon stool this morning, hemoglobin pending. Albumin 2.5. Maintaining O2 sats in the 90s on 6 L nasal cannula. Nephrology consulted. 03/24/2020 maintained on Lasix drip, continues to have significant edema ,urine output 300 mls over last 4 hours. Lasix drip increased to 15 MLS per hour as per nephrology with metolazone added. Denies chest pain, palpitations or increasing shortness of breath. Complains of increased weakness, feeling tired and fatigued. Consuming 25-50% of diet. Creatinine 2.68. Hemoglobin 8.8. 03/25/2020 yesterday Lasix drip increased to 15 mg per hour, continues to have significant edema. Creatinine continuing to trend up, 2.87. Chest x-ray reporting continued CHF with pulmonary vascular congestion.Maroon stool 1 this morning, hemoglobin 8.8, DVT prophylaxis with Lovenox has been discontinued. ROSEMARIE/compression stockings ordered. Maintaining O2 sats in the 90s on 5 L nasal cannula. Denies chest pain, palpitations or increasing shortness of breath. 03/26/2020: During the early hours around 2:30 to 40 5 AM, patient became arden ycardic in the low 40s and eventually went into asystole. The patient was a DNR and no resuscitation was done due to the significant and severe congestive heart failure and renal failure. He quietly with nursing staff in attendance. Plan - Discharge Summary Discharge Rx Participant: Yes New Discharge Prescriptions: Discontinued Tamsulosin [Flomax] 0.8 mg PO DAILY@0900 hydrALAZINE HCL [Apresoline] 25 mg PO TID@0600,1400,2100 buPROPion XL [Wellbutrin XL] 150 mg PO DAILY@0900 Linagliptin [Tradjenta] 5 mg PO DAILY@0900 Acetaminophen Tab [Tylenol] 650 mg PO Q4H PRN PRN Reason: Pain Calcium Carbonate [Tums] 1,000 mg PO Q6H PRN PRN Reason: upset stomach Metoprolol Tartrate [Lopressor] 50 mg PO BID@0900,2100 Omeprazole 20 mg PO DAILY@0600 Atorvastatin [Lipitor] 20 mg PO HS@2100 Escitalopram [Lexapro] 10 mg PO DAILY@0900 Isosorbide Mononitrate ER [Imdur] 30 mg PO DAILY@0900 Umeclidinium Fisher [Incruse Ellipta] 1 puff INHALATION RT-DAILY@0900 Aspirin 81 mg PO DAILY@0900 Albuterol Inhaler [Ventolin Hfa Inhaler] 2 puff INHALATION RT-QID PRN puff PRN Reason: Shortness Of Breath Or Wheezing HYDROcodone/APAP 5-325MG [[place] 5-325] 1 tab PO Q4HR PRN #42 tab PRN Reason: Pain Benzocaine/Menthol Lozeng [Cepacol lozenge] 1 lozenge MUCOUS MEM Q4HR PRN PRN Reason: Sore Throat Collagenase [Santyl] 1 applic TOPICAL DAILY ALPRAZolam [Xanax] 0.25 mg PO DAILY PRN PRN Reason: Anxiety Sennosides [Senokot] 8.6 mg PO DAILY PRN PRN Reason: Constipation HYDROcodone/APAP 5-325MG [[place] 5-325] 2 tab PO Q4HR PRN PRN Reason: Pain ALPRAZolam [Xanax] 0.25 mg PO BID@0800,1700 Potassium Chloride ER [K-Dur 10] 10 meq PO DAILY@0900 Magnesium Oxide 400 mg PO DAILY@0900 Lidocaine 5% Patch [Lidoderm] 1 patch TOPICAL DAILY@0900 Furosemide [Lasix] 40 mg PO DAILY@0900 Insulin Glargine,Hum.rec.anlog [Basaglar Kwikpen U-100] 10 unit SQ HS@2100 Visine Tears Solution 0.2-02-1% 1 drop BOTH EYES DAILY PRN PRN Reason: Dry Eye(S) Activity/Diet/Wound Care/Special Instructions: [facility] Discharge Disposition: - Preliminary Cause of Preliminary Cause of : congestive heart failure
--- NOTE | 2020-03-29 12:28 | CDI ---
Documentation Clarification Form Date: 03/29/20 From: Jordana Allan CCS Phone: If you have a question about this query, please contact Benita Calvin, International Flight Attendant at [phone] between 8am and 5pm. Admit Date: 03/15/20 Discharge Date:03/26/20 Patient Name: Bernardo Boston Visit Number: [id number] ATTENTION: The Clinical Documentation Specialists (CDI) and [facility] Coding Staff appreciate your assistance in clarifying documentation. Please respond to the clarification below the line at the bottom and electronically sign. The CDI & [facility] Coding staff will review the response and follow-up if needed. Please note: Queries are made part of the Legal Health Record. If you have any questions, please contact the author of this message via ITS. Dear Dr. Akhtar, The patient presented with the following GI bleed. Wound Care Notes beginning 03/15 document pressure ulcer left coccyx stage II and medial coccyx stage III History/Risk Factors: Recent fracture repair, Hx COVID, PCM, HHD, PNA, CHF, DM, ESRD Treatment: Primary dressing foam w/ border Consult: Wound care In your professional opinion, can you please clarify if you agree with the wound care documentation of pressure ulcer left coccyx stage II and medial coccyx stage III? --->Pressure ulcer stage II and stage III of coccyx POA Patient ulcer stage II and stage III of coccyx ruled out Other, please specify Unable to determine MTDD
== END 2020-03-26 03:50 | disposition expired | DRG 377 ==
LOC: EC 06:22 → 2SICU 08:04 → 3SCARD 03-19 09:49
PROVIDERS: ADMIT Family Medicine; ATTEND Family Medicine
PROC: 30233N1 Transfusion of Nonautologous Red Blood Cells into Peripheral Vein, Percutaneous Approach (ICD-10-PCS; principal; 2020-03-15)
PROC: 0W993ZZ Drainage of Right Pleural Cavity, Percutaneous Approach (ICD-10-PCS; 2020-03-19)
PROC: 3E0336Z Introduction of Nutritional Substance into Peripheral Vein, Percutaneous Approach (ICD-10-PCS; 2020-03-19)
DX: K57.91 Diverticulosis of intestine, part unspecified, without perforation or abscess with bleeding (principal); L89.153 Pressure ulcer of sacral region, stage 3; J96.21 Acute and chronic respiratory failure with hypoxia; I50.33 Acute on chronic diastolic (congestive) heart failure; J18.9 Pneumonia, unspecified organism; J91.8 Pleural effusion in other conditions classified elsewhere; E44.0 Moderate protein-calorie malnutrition; N17.9 Acute kidney failure, unspecified; D68.32 Hemorrhagic disorder due to extrinsic circulating anticoagulants; I13.0 Hypertensive heart and chronic kidney disease with heart failure and stage 1 through stage 4 chronic kidney disease, or unspecified chronic kidney disease; J44.1 Chronic obstructive pulmonary disease with (acute) exacerbation; J44.0 Chronic obstructive pulmonary disease with (acute) lower respiratory infection; D62 Acute posthemorrhagic anemia; I48.20 Chronic atrial fibrillation, unspecified; J98.11 Atelectasis; F33.9 Major depressive disorder, recurrent, unspecified; Z20.828 Contact with and (suspected) exposure to other viral communicable diseases; Z66 Do not resuscitate; E11.649 Type 2 diabetes mellitus with hypoglycemia without coma; I27.29 Other secondary pulmonary hypertension; L89.152 Pressure ulcer of sacral region, stage 2; D63.1 Anemia in chronic kidney disease; R13.10 Dysphagia, unspecified; N18.3 Chronic kidney disease, stage 3 (moderate); E11.22 Type 2 diabetes mellitus with diabetic chronic kidney disease; Z79.4 Long term (current) use of insulin; I46.2 Cardiac arrest due to underlying cardiac condition; F03.90 Unspecified dementia, unspecified severity, without behavioral disturbance, psychotic disturbance, mood disturbance, and anxiety; R31.9 Hematuria, unspecified; E78.5 Hyperlipidemia, unspecified; N40.0 Benign prostatic hyperplasia without lower urinary tract symptoms; F41.9 Anxiety disorder, unspecified; S72.031D Displaced midcervical fracture of right femur, subsequent encounter for closed fracture with routine healing; R41.89 Other symptoms and signs involving cognitive functions and awareness; I08.1 Rheumatic disorders of both mitral and tricuspid valves; N27.0 Small kidney, unilateral; E78.00 Pure hypercholesterolemia, unspecified; R00.0 Tachycardia, unspecified; E87.6 Hypokalemia; R00.1 Bradycardia, unspecified; N50.89 Other specified disorders of the male genital organs; T45.515A Adverse effect of anticoagulants, initial encounter; W19.XXXD Unspecified fall, subsequent encounter; Z53.20 Procedure and treatment not carried out because of patient's decision for unspecified reasons; Z96.7 Presence of other bone and tendon implants; Z68.33 Body mass index [BMI] 33.0-33.9, adult; Z71.3 Dietary counseling and surveillance; Z79.01 Long term (current) use of anticoagulants; Z79.899 Other long term (current) drug therapy; Z79.82 Long term (current) use of aspirin; Z79.51 Long term (current) use of inhaled steroids; Z98.890 Other specified postprocedural states; Z99.81 Dependence on supplemental oxygen; Z86.19 Personal history of other infectious and parasitic diseases; Z89.022 Acquired absence of left finger(s); Z87.891 Personal history of nicotine dependence; Z96.0 Presence of urogenital implants; Z87.01 Personal history of pneumonia (recurrent); Z88.5 Allergy status to narcotic agent; Z88.8 Allergy status to other drugs, medicaments and biological substances; Z83.3 Family history of diabetes mellitus; Z84.1 Family history of disorders of kidney and ureter; Z80.9 Family history of malignant neoplasm, unspecified
CPT/HCPCS: 36415; 36430; 71045; 76604; 80048; 80053; 82272; 82330; 82728; 82945; 83540; 83550; 83605; 83615; 83690; 83735; 84100; 84157; 84478; 84484; 85025; 85027; 85610; 85730; 86850; 86900; 86901; 86920; 87040; 87070; 87102; 87116; 87205; 87206; 87635; 89050; 93005; 94640; 96361; 96365; 96375; 99291